=== PATIENT | male | born 1945 | race Caucasian/White ===

== ENCOUNTER → 2018-01-18 13:48 | Outpatient (CLI) | payer MEDICARE, OTHER, SELFPAY ==
--- NOTE | 2018-01-18 | DI.US.S_ITS ---
PROCEDURE: US ABD AORTA ANEURYSM SCREEN INDICATIONS: AAA SCREEN TECHNIQUE: Real time scanning was performed of the aorta and iliac arteries, with image documentation. COMPARISON: None. FINDINGS: Aorta: Proximal aortic diameter measures 2.8 cm. Mid-aorta measures 2.2 cm. Distal aortic diameter is 1.6 cm. Aortic atherosclerosis is noted. Iliac arteries: Right common iliac artery measures 1.2 cm. Left common iliac artery measures 1.1 cm. IMPRESSION: Aortic atherosclerosis without evidence of abdominal aortic aneurysm. Dictated by: Mike Warren M.D. on 01/18/2018 at 13:22 Approved by: Mike Warren M.D. on 01/18/2018 at 13:23
== END ==
PROVIDERS: PCP Family Medicine; Visit Provider Family Medicine
DX: Z13.6 Encounter for screening for cardiovascular disorders (principal); I70.0 Atherosclerosis of aorta
CPT/HCPCS: 76706

== ENCOUNTER → 2019-06-11 11:44 | Outpatient (CLI) | payer MEDICARE, OTHER, SELFPAY ==
[2019-06-11 12:43] LABS: Alanine Aminotransferase 50 IU/L (<50); Albumin Globulin Ratio 1.4 (1.0-2.8); Alkaline Phosphatase 73 U/L (38-126); Aspartate Aminotransferase 69 IU/L (17-59); BUN Creatinine Ratio 10.8 (6-22); Bilirubin Total 0.5 mg/dL (0.2-1.3); Blood Urea Nitrogen 9 mg/dL (9-20); Calcium 9.1 mg/dL (8.4-10.2); Carbon Dioxide 26 mmol/L (22-32); Chloride 106 mmol/L (98-107); Cholesterol 271 mg/dL (140-199); Estimated Glomerular Filt Rate > 60.0 mL/min (>60); Globulin 2.8 g/dL (1.7-4.1); Glucose 93 mg/dL (80-110); HDL Cholesterol 103 mg/dL (40-60); HEMOLYSIS < 15 (0-50); LDL Cholesterol Calculated 145 mg/dL (<100); Magnesium 1.7 mg/dL (1.6-2.3); Potassium 4.8 mmol/L (3.4-5.1); Sodium 142 mmol/L (137-145); Total Protein 6.8 g/dL (6.3-8.2); Triglycerides 113 mg/dL (35-150)
== END ==
PROVIDERS: PCP Student in an Organized Health Care Education/Training Program; Referring Provider Nurse Practitioner; Visit Provider Nurse Practitioner
DX: I48.19 Other persistent atrial fibrillation (principal)
CPT/HCPCS: 36415; 80053; 80061; 83735; 84443

== ENCOUNTER 2019-07-02 11:57 | Inpatient (IN) | payer MEDICARE, OTHER, SELFPAY ==
[2019-07-02] VITALS (12 sets, daily range): BP systolic 117–144; BP diastolic 76–107; PULSE 95–138; RESP 14–21; TEMP 36.3–36.9; O2SAT 93–97; BMI 24.7
--- NOTE | 2019-07-02 12:02 | ED_ITS ---
HPI - General Adult General Chief complaint: Arrhythmia/Palpitations Stated complaint: Weak, heart issues and Doesn't feel good Time Seen by Provider: 07/02/19 12:00 Source: patient and family () Mode of arrival: Ambulatory Limitations: no limitations History of Present Illness HPI narrative: Patient is a 74-year-old male brought in by private vehicle with his for evaluation of weakness, palpitations, inability to walk, shaking. Patient states that it feels like his heart is beating fast. He does have a history of atrial fibrillation. He denies being on any medications or anticoagulation for this. He states that he thinks it has been going on for at least the past 2 days but is unsure. He is unsure if he is in atrial fibrillation all the time or only sometimes. Patient is also here for shakiness and weakness in his legs. According to his this is potentially been progressively worsening over the past several days/weeks. Patient's also states that the patient has a significant alcohol history. Patient acknowledges this. He states that his last drink was yesterday. They also reported multiple falls at home. He has bruising on his elbows. Patient's also thinks that he was somewhat confused this morning. Patient's states that this morning he asked to come to the emergency department. She states that he normally does not do this and is always denied any prior offers for alcohol treatment. Related Data Allergies Allergy/AdvReac Type Severity Reaction Status Date / Time amoxicillin [AMOXICILLIN] Allergy Severe SWOLLEN JAW Unverified 05/24/17 12:22 clindamycin [CLINDAMYCIN] AdvReac Severe C-DIFF Unverified 05/24/17 12:22 Review of Systems Constitutional Constitutional: Reports fatigue, Denies fever(s), Reports frequent falls, Denies headache(s), Reports lethargy and Reports weakness Eyes Eyes: Denies change in vision ENT Ears, Nose, Mouth, and Throat: Denies vertigo, Denies dizziness, Denies headache(s) and Denies disequilibrium Cardiovascular Cardiovascular: Denies chest pain, Reports rapid heart rate, Denies edema, Reports palpitations and Denies dyspnea Respiratory Respiratory: Denies dyspnea Gastrointestinal Gastrointestinal: Denies abdominal pain and Denies vomiting Genitourinary Genitourinary: Denies dysuria Musculoskeletal Musculoskeletal: Reports abnormal gait, Denies myalgias and Denies arthralgias Integumentary/Breasts Skin/Breast: Denies rash Comments: Bruising bilateral elbows Neurologic Neurologic: Reports abnormal gait, Reports confusion, Denies vertigo, Denies dizziness, Reports frequent falls, Denies headache(s), Denies disequilibrium and Reports weakness Comments: Confusion this morning for his Psychiatric Psychiatric: Reports confusion Endocrine Endocrine: Reports fatigue and Reports palpitations Hematologic/Lymphatic Hematologic/Lymphatic: Denies easy bleeding and Denies easy bruising Comments: Not on anticoagulation Allergic/Immunologic Allergic/Immunologic: Denies urticaria Patient History Medical History Alcohol abuse (Acute) Atrial fibrillation (Acute) Social History Smoking Status: Current some day smoker Exam Initial Vital Signs Initial Vital Signs: Vital Signs Temperature 97.4 F L 07/02/19 12:00 Pulse Rate 138 H 07/02/19 12:00 Respiratory Rate 14 07/02/19 12:00 Blood Pressure 129/76 07/02/19 12:00 Pulse Oximetry 97 07/02/19 12:00 Const General: cooperative and comfortable Limitations: mental status not altered HENMT Head: normal to inspection and normocephalic Resp Effort & Inspection: normal respiratory effort Auscultation: clear to auscultation bilaterally Cardio Rate: tachycardic Rhythm: abnormal rhythm Pulses: radial pulses present GI Inspection: non-distended Palpation: soft and No tender Skin Other: Bruising bilateral elbows Neuro General: alert, awake and oriented x3 Speech: speech normal Sensory Exam: no sensory deficits noted Extrem General: normal to inspection and capillary refill normal Psych Appearance: grossly normal and well kempt Scores GCS [place] coma scale eye opening: Spontaneous Tata coma scale verbal response: Orientated [place] coma scale motor response: Obey commands [place] coma scale total score: 15 Course Orders Ordered: ED Orders 07/02/19 12:01 EKG-12 Lead Stat 07/02/19 12:05 Acetaminophen Stat Complete Blood Count AUTO DIFF Stat Comprehensive Metabolic Panel Stat Ethanol (ETOH) Stat Lipase Stat Partial Thromboplastin Time Stat Procalcitonin Stat Prothrombin Time INR Stat Salicylate Stat Troponin I Stat 07/02/19 12:15 CT head/brain wo con Stat 07/02/19 12:22 Lactate (Lactic Acid) Stat 07/02/19 14:06 Urine Drug Screen, Rapid Stat 07/02/19 14:07 XR chest 1V Stat 07/02/19 14:20 Ammonia (NH3) Stat Magnesium Sulfate 2 gm/ Folic Acid 1 mg/ Thiamine HCl 100 mg / Multivitamins 10 ml/ Sodium Chloride 1,015.2 mls @ 125 mls/hr IV NOW ONE Stop: 07/02/19 20:36 Last Admin: 07/02/19 13:23 Dose: 125 mls/hr Documented by: JUSTICE Lorazepam (Ativan) 0.5 mg IV Q2HR PRN PRN Reason: Alcohol Withdrawal Ondansetron HCl (Zofran) 4 mg IV Q4HR PRN PRN Reason: Nausea And Vomiting Discontinued Medications Sodium Chloride (Normal Saline 0.9%) 1,000 mls @ 150 mls/hr IV CONT MIKEL Last Admin: 07/02/19 13:23 Dose: Not Given Documented by: JUSTICE Lorazepam (Ativan) 0.5 mg IV NOW ONE Stop: 07/02/19 12:30 Last Admin: 07/02/19 12:40 Dose: 0.5 mg Documented by: JUSTICE Lorazepam (Ativan) 0.5 mg IV NOW ONE Stop: 07/02/19 13:42 Last Admin: 07/02/19 13:57 Dose: 0.5 mg Documented by: JUSTICE Metoprolol Succinate (Toprol Xl) 25 mg PO NOW ONE Stop: 07/02/19 12:30 Last Admin: 07/02/19 12:42 Dose: 25 mg Documented by: JUSTICE Multivitamins (Tab-A-Cherri) 1 tab PO NOW ONE Stop: 07/02/19 12:20 Last Admin: 07/02/19 13:24 Dose: Not Given Documented by: JUSTICE Thiamine HCl (Vitamin B-1) 100 mg IV NOW ONE Stop: 07/02/19 12:19 Last Admin: 07/02/19 13:23 Dose: Not Given Documented by: JUSTICE Vital Signs Vital signs: Vital Signs - 8 hr 07/02/19 12:00 07/02/19 12:34 07/02/19 13:20 Temperature 97.4 F L Pulse Rate 138 H 113 H 113 H Respiratory Rate 14 16 16 Blood Pressure 129/76 Blood Pressure [Left Arm] 144/91 H 144/91 H Pulse Oximetry 97 93 07/02/19 13:24 Temperature Pulse Rate 113 H Respiratory Rate Blood Pressure Blood Pressure [Left Arm] Pulse Oximetry Medical Decision Making Medical Records Medical records reviewed: Yes I reviewed the patient's medical records. Lab Data Lab results reviewed: Yes I reviewed the patient's lab results. Result diagrams: 07/02/19 12:05 07/02/19 12:05 Labs: Lab Results 07/02/19 07/02/19 07/02/19 Range/Units 12:05 12:05 12:05 WBC 5.6 (4.5-11.0) X10^3/uL RBC 3.29 L (4.5-5.9) X10^6/uL Hgb 12.1 L (13.5-17.5) g/dL Hct 35.1 L (41-53) % MCV 106.9 H (80-100) fL MCH 36.8 H (26-34) PG MCHC 34.4 (30-36) % RDW 13.8 (11.6-14.8) % Plt Count 121 L (150-400) X10^3/uL Neut % (Auto) 73.9 (50-75) % Lymph % (Auto) 12.2 L (25-40) % [place] % (Auto) 12.6 (3-14) % Eos % (Auto) 0.2 L (2-4) % Baso % (Auto) 1.1 (0-2) % Neut # (Auto) 4200 (3801-0152) /uL Lymph # (Auto) 700 L (5121-7073) /uL [place] # (Auto) 700 (0-900) /uL Eos # (Auto) 0 (0-450) /uL Baso # (Auto) 100 (0-100) /uL PT 46.1 H (10.1-12.7) SECONDS INR 4.0 H (0.9-1.3) APTT 26 L (26.4-36.2) SECONDS Sodium 137 (137-145) mmol/L Potassium 4.3 (3.4-5.1) mmol/L Chloride 103 (98-107) mmol/L Carbon Dioxide 23 (22-32) mmol/L BUN 13 (9-20) mg/dL Creatinine 0.70 (0.66-1.25) mg/dL Estimated GFR > 60.0 (>60) mL/min BUN/Creatinine Ratio 18.6 (6-22) Glucose 121 H (80-110) mg/dL Lactate (0.7-2.1) mmol/L Calcium 9.1 (8.4-10.2) mg/dL Total Bilirubin 1.2 (0.2-1.3) mg/dL AST 148 H (17-59) IU/L ALT 75 H (<50) IU/L Alkaline Phosphatase 84 (38-126) U/L Ammonia (9-30) umol/L Troponin I < 0.012 (0.01-0.034) ng/mL Total Protein 6.9 (6.3-8.2) g/dL Albumin 4.1 (3.5-5.0) g/dL Globulin 2.8 (1.7-4.1) g/dL Albumin/Globulin Ratio 1.5 (1.0-2.8) Lipase 149 (23-300) U/L Procalcitonin (<0.5) ng/mL Salicylates (<20) mg/dL Acetaminophen (10-30) ug/mL Ethyl Alcohol < 10 ( - 10) mg/dL 07/02/19 07/02/19 07/02/19 Range/Units 12:05 12:05 12:22 WBC (4.5-11.0) X10^3/uL RBC (4.5-5.9) X10^6/uL Hgb (13.5-17.5) g/dL Hct (41-53) % MCV (80-100) fL MCH (26-34) PG MCHC (30-36) % RDW (11.6-14.8) % Plt Count (150-400) X10^3/uL Neut % (Auto) (50-75) % Lymph % (Auto) (25-40) % [place] % (Auto) (3-14) % Eos % (Auto) (2-4) % Baso % (Auto) (0-2) % Neut # (Auto) (1153-2290) /uL Lymph # (Auto) (1519-4324) /uL [place] # (Auto) (0-900) /uL Eos # (Auto) (0-450) /uL Baso # (Auto) (0-100) /uL PT (10.1-12.7) SECONDS INR (0.9-1.3) APTT (26.4-36.2) SECONDS Sodium (137-145) mmol/L Potassium (3.4-5.1) mmol/L Chloride (98-107) mmol/L Carbon Dioxide (22-32) mmol/L BUN (9-20) mg/dL Creatinine (0.66-1.25) mg/dL Estimated GFR (>60) mL/min BUN/Creatinine Ratio (6-22) Glucose (80-110) mg/dL Lactate 5.5 H* (0.7-2.1) mmol/L Calcium (8.4-10.2) mg/dL Total Bilirubin (0.2-1.3) mg/dL AST (17-59) IU/L ALT (<50) IU/L Alkaline Phosphatase (38-126) U/L Ammonia (9-30) umol/L Troponin I (0.01-0.034) ng/mL Total Protein (6.3-8.2) g/dL Albumin (3.5-5.0) g/dL Globulin (1.7-4.1) g/dL Albumin/Globulin Ratio (1.0-2.8) Lipase (23-300) U/L Procalcitonin 0.08 (<0.5) ng/mL Salicylates < 1.0 (<20) mg/dL Acetaminophen < 10 L (10-30) ug/mL Ethyl Alcohol ( - 10) mg/dL 07/02/19 07/02/19 Range/Units 14:20 14:20 WBC (4.5-11.0) X10^3/uL RBC (4.5-5.9) X10^6/uL Hgb (13.5-17.5) g/dL Hct (41-53) % MCV (80-100) fL MCH (26-34) PG MCHC (30-36) % RDW (11.6-14.8) % Plt Count (150-400) X10^3/uL Neut % (Auto) (50-75) % Lymph % (Auto) (25-40) % [place] % (Auto) (3-14) % Eos % (Auto) (2-4) % Baso % (Auto) (0-2) % Neut # (Auto) (3701-9638) /uL Lymph # (Auto) (5550-2885) /uL [place] # (Auto) (0-900) /uL Eos # (Auto) (0-450) /uL Baso # (Auto) (0-100) /uL PT (10.1-12.7) SECONDS INR (0.9-1.3) APTT (26.4-36.2) SECONDS Sodium (137-145) mmol/L Potassium (3.4-5.1) mmol/L Chloride (98-107) mmol/L Carbon Dioxide (22-32) mmol/L BUN (9-20) mg/dL Creatinine (0.66-1.25) mg/dL Estimated GFR (>60) mL/min BUN/Creatinine Ratio (6-22) Glucose (80-110) mg/dL Lactate 1.5 (0.7-2.1) mmol/L Calcium (8.4-10.2) mg/dL Total Bilirubin (0.2-1.3) mg/dL AST (17-59) IU/L ALT (<50) IU/L Alkaline Phosphatase (38-126) U/L Ammonia < 9 L (9-30) umol/L Troponin I (0.01-0.034) ng/mL Total Protein (6.3-8.2) g/dL Albumin (3.5-5.0) g/dL Globulin (1.7-4.1) g/dL Albumin/Globulin Ratio (1.0-2.8) Lipase (23-300) U/L Procalcitonin (<0.5) ng/mL Salicylates (<20) mg/dL Acetaminophen (10-30) ug/mL Ethyl Alcohol ( - 10) mg/dL Imaging Data CT scan - head: Radiologist's Impression: [address] [address] [address] Scan Report Signed Patient: Master Porter OMR#: [id number] : 7Acct:[id number] Age/Sex: 74 / MDate of Service: 07/02/19 Loc: ED Accession Number: [id number] Procedure: CT head/brain wo con Ordering Provider: Master Medina D.O. PROCEDURE: CT HEAD/BRAIN WO CON INDICATIONS: etoh, confusion, fall TECHNIQUE: Noncontrast 4.5 mm thick angled axial sections acquired from the foramen magnum to the vertex, with coronal and sagittal reformats. For radiation dose reduction, the following was used: automated exposure control, adjustment of mA and/or kV according to patient size. COMPARISON: None. FINDINGS: Image quality: Excellent. CSF spaces: Basal cisterns are patent. No extra-axial fluid collections. The ventricles are symmetric in size and shape. Brain: No intracranial bleeds or masses. There is cerebral volume loss for age, with resultant ventricular and sulcal prominence. There are periventricular and deep white matter chronic small vessel ischemic changes. There is intracranial internal carotid artery atherosclerosis. Skull and face: Calvarium and visualized facial bones appear intact, without suspicious lesions. Sinuses: Visualized sinuses and mastoids are clear. IMPRESSION: No acute intracranial process. Dictated by: Dewayne Todd M.D. on 07/02/2019 at 12:54 Approved by: Dewayne Todd M.D. on 07/02/2019 at 12:57 ECG Data Attestation: I personally reviewed and interpreted this ECG as follows: Prior ECG tracings: not available for review Interpretation: Atrial fibrillation Ventricular rate of 140 Normal QRS Normal QTC Nonspecific ST T wave changes MDM Narrative Medical decision making narrative: Patient in atrial fibrillation. I suspect this is secondary to alcohol withdrawal. Head CT was unremarkable. Patient has full range of motion of all major joints both upper and lower extremities. Feel we could hold on radiologic studies these areas despite the bruising on his elbows. Patient was given oral metoprolol. He was given IV Ativan. Heart rate did improve after these treatments. Patient was started on a banana bag. Discussed the case with Dr. Beckham who was on-call for the patient's primary doctor. Will admit for further evaluation treatment. Discussed admission with the patient and his who is at bedside. They expressed understanding and agreement. Discharge Plan Departure Patient Disposition: Admitted As Inpatient Clinical Impression: Atrial fibrillation with RVR, Weakness Alcohol withdrawal Qualifiers: Complication of substance-induced condition: with unspecified complication Qualified Code(s): F10.239 - Alcohol dependence with withdrawal, unspecified Admit Date/Time: 07/02/19 14:36 Admit Provider: Cris Reyna
--- NOTE | 2019-07-02 12:15 | DI.CT.S_ITS ---
PROCEDURE: CT HEAD/BRAIN WO CON INDICATIONS: etoh, confusion, fall TECHNIQUE: Noncontrast 4.5 mm thick angled axial sections acquired from the foramen magnum to the vertex, with coronal and sagittal reformats. For radiation dose reduction, the following was used: automated exposure control, adjustment of mA and/or kV according to patient size. COMPARISON: None. FINDINGS: Image quality: Excellent. CSF spaces: Basal cisterns are patent. No extra-axial fluid collections. The ventricles are symmetric in size and shape. Brain: No intracranial bleeds or masses. There is cerebral volume loss for age, with resultant ventricular and sulcal prominence. There are periventricular and deep white matter chronic small vessel ischemic changes. There is intracranial internal carotid artery atherosclerosis. Skull and face: Calvarium and visualized facial bones appear intact, without suspicious lesions. Sinuses: Visualized sinuses and mastoids are clear. IMPRESSION: No acute intracranial process. Dictated by: Dewayne Todd M.D. on 07/02/2019 at 12:54 Approved by: Dewayne Todd M.D. on 07/02/2019 at 12:57
[2019-07-02 12:19] LABS: Add Manual Diff / Slide Review NO; Basophils Absolute Auto 100 /uL (0-100); Basophils Percent Auto 1.1 % (0-2); Eosinophils Absolute Auto 0 /uL (0-450); Eosinophils Percent Auto 0.2 % (2-4); Hematocrit 35.1 % (41-53); Hemoglobin 12.1 g/dL (13.5-17.5); Lymphocytes Absolute Auto 700 /uL (1100-4500); Lymphocytes Percent Auto 12.2 % (25-40); Mean Corpuscular HGB Conc 34.4 % (30-36); Mean Corpuscular Hemoglobin 36.8 PG (26-34); Mean Corpuscular Volume 106.9 fL (80-100); Monocytes Absolute Auto 700 /uL (0-900); Monocytes Percent Auto 12.6 % (3-14); Neutrophils Absolute Auto 4200 /uL (1500-7000); Neutrophils Percent Auto 73.9 % (50-75); Platelet Count 121 X10^3/uL (150-400); Red Blood Cell Count 3.29 X10^6/uL (4.5-5.9); Red Cell Distribution Width 13.8 % (11.6-14.8); White Blood Cell Count 5.6 X10^3/uL (4.5-11.0)
[2019-07-02 12:23] LABS: Prothrombin Time 46.1 SECONDS (10.1-12.7)
[2019-07-02 12:26] LABS: PTT Partial Thromboplastin Tim 26 SECONDS (26.4-36.2)
[2019-07-02 12:30] LABS: Acetaminophen < 10 ug/mL (10-30); Albumin 4.1 g/dL (3.5-5.0); Albumin Globulin Ratio 1.5 (1.0-2.8); Alkaline Phosphatase 84 U/L (38-126); Aspartate Aminotransferase 148 IU/L (17-59); BUN Creatinine Ratio 18.6 (6-22); Bilirubin Total 1.2 mg/dL (0.2-1.3); Blood Urea Nitrogen 13 mg/dL (9-20); Calcium 9.1 mg/dL (8.4-10.2); Carbon Dioxide 23 mmol/L (22-32); Chloride 103 mmol/L (98-107); Estimated Glomerular Filt Rate > 60.0 mL/min (>60); Ethanol (ETOH) < 10 mg/dL; Globulin 2.8 g/dL (1.7-4.1); Glucose 121 mg/dL (80-110); HEMOLYSIS 16 (0-50); Lipase 149 U/L (23-300); Potassium 4.3 mmol/L (3.4-5.1); Salicylate < 1.0 mg/dL (<20); Sodium 137 mmol/L (137-145); Total Protein 6.9 g/dL (6.3-8.2)
--- NOTE | 2019-07-02 12:30 | PC.NURSE ---
admits drinking 3-4 days, reports not feeling well, ran away heart, afib last drink yesterday. dyspneic on exertion with bilateral foot swelling,+weakness, shaky. denies fever,nausea,vomiting,shortness of breath. denies headache,nausea,auditory/visual hallucinations.
[2019-07-02] MEDS: LORazepam 2 MG/ML INJ 0.5 MG IV ×3 (12:40→18:06)
[2019-07-02 12:41] LABS: Troponin I < 0.012 ng/mL (0.01-0.034)
[2019-07-02] MEDS: METOPROLOL ER 25 MG TABLET PO ×2 (12:42→21:21)
[2019-07-02 12:44] LABS: Lactate (Lactic Acid) 5.5 mmol/L (0.7-2.1)
[2019-07-02 12:46] LABS: Procalcitonin 0.08 ng/mL (<0.5)
[2019-07-02] MEDS: MAGNESIUM SULFATE 2 GM, FOLIC ACID 1 MG, THIAMINE 100 MG, MULTIVITAMIN 10 ML in SODIUM ... IV (13:23)
[2019-07-02 13:36] LABS: Alanine Aminotransferase 75 IU/L (<50)
--- NOTE | 2019-07-02 14:07 | DI.RAD.S_ITS ---
PROCEDURE: XR CHEST 1V INDICATIONS: Eval for pneumonia TECHNIQUE: One view of the chest was acquired. COMPARISON: None. FINDINGS: Surgical changes and devices: None. Lungs and pleura: Lungs are clear. No pleural effusions or pneumothorax. Mediastinum: Mediastinal contours appear normal. Heart size is normal. Bones and chest wall: No suspicious bony lesions. Overlying soft tissues appear unremarkable. IMPRESSION: No acute cardiopulmonary disease process. Dictated by: Lianne Morgan MD, PhD on 07/02/2019 at 15:10 Approved by: Lianne Morgan MD, PhD on 07/02/2019 at 15:11
[2019-07-02 14:23] LABS: Reflexed Lactate in 2 Hours Y
[2019-07-02 14:42] LABS: Ammonia (NH3) < 9 umol/L (9-30); Lactate 2HR (Lactic Acid Rflx) 1.5 mmol/L (0.7-2.1)
[2019-07-02 15:44] LABS: UR Morphine/Opiate cutoff 300 Negative (Negative); Ur Creatinine Normal (Normal); Ur Specific Gravity Normal (Normal); Urine Amphetamines Negative (Negative); Urine Barbiturates Negative (Negative); Urine Benzodiazepines Negative (Negative); Urine Cocaine Negative (Negative); Urine MDMA Negative (Negative); Urine Methadone Negative (Negative); Urine Methamphetamines Negative (Negative); Urine Oxycodone Negative (Negative); Urine Phencyclidine Negative (Negative); Urine Tetrahydrocannabinol Negative (Negative); Urine Tricyclic Antidepressant Negative (Negative); Urine pH Normal (Normal)
--- NOTE | 2019-07-02 19:10 | PM.HP.1 ---
History of Present Illness History of Present Illness Date Patient Seen: 07/02/19 Time Patient Seen: 19:11 Date of Onset of Symptoms: 07/02/19 Chief complaint: Weak, heart issues and Doesn't feel good Narrative: This pleasant 74-year-old male who is under the primary care of Dr. Reyna presents to the emergency department with complaints of severe weakness and confusion. CT scan of the head was negative and neurologic exam was nonfocal. Patient was found to be in atrial fibrillation with a rapid ventricular response and was given metoprolol with improvement in his heart rate. Due to overall deconditioning concerned that he was experiencing acute delirium tremens he was admitted to the hospital for further treatment. He is given varied history is of having alcohol today having it yesterday having it 3 days prior as the last time that he drink. He has a history of alcohol abuse and has been battling with this. He currently has been drinking but I do not have a quantification for, which his intake has been on a daily basis. He has had a history of atrial fibrillation and typically it has not persisted for more than 15 minutes. He has been on anticoagulants in the past and is not clear why these were stopped but I suspect it is due to his history of alcoholism and his frequent falls and unsteady gait. Review of systems is negative other than above Patient denies any abdominal complaints. He denies any abdominal pain. He denies any bright red blood per rectum. He denies any bloody stools. He denies any weight loss. He denies any reflux. He does not have any history of GI bleeds. Patient denies chest pain. Patient denies shortness of breath or palpitations. He has felt poorly has felt dizzy and lightheaded Patient denies headache. Patient denies seizures Patient denies depression Past medical history: 1. Alcoholism 2. Atrial fibrillation 3. Hypertension 4. Hyperlipidemia 5. BPH without obstruction 6. Colon polyps 7. Gout 8. 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 [employer] Family history: Mom of lung cancer Sister of complications of rheumatoid arthritis Has 2 brothers who are healthy Has 3 other sisters who are healthy Patient History Medical History Alcohol abuse (Acute) Atrial fibrillation (Acute) Family & Social History Social History: household members spouse Prior Living Arrangements House Safety & Behavioral: Feels Safe in Current Yes Environment Suicidal Ideation Description None Suicide Plan Description No Plan Tobacco & Substance use: Tobacco type cigarettes Smoking Status Former smoker Smoking packs per day 2 alcohol intake frequency 3 or more drinks per day Substance Use Type does not use Meds Home Medications and Allergies Home Medications Medication Instructions Recorded Confirmed Type No Known Home Medications 07/02/19 07/02/19 History Allergies Allergy/AdvReac Type Severity Reaction Status Date / Time amoxicillin [AMOXICILLIN] Allergy Severe SWOLLEN JAW Unverified 05/24/17 12:22 clindamycin [CLINDAMYCIN] AdvReac Severe C-DIFF Unverified 05/24/17 12:22 Review of Systems Review of Systems Narrative: Negative other than HPI Exam Vital Signs (past 8 hours): - 07/02/19 12:00 07/02/19 12:34 07/02/19 13:20 Temperature 97.4 F L Pulse Rate 138 H 113 H 113 H Respiratory Rate 14 16 16 Blood Pressure 129/76 Blood Pressure [Left Arm] 144/91 H 144/91 H Pulse Oximetry 97 93 07/02/19 13:24 07/02/19 15:13 07/02/19 16:02 Temperature Pulse Rate 113 H 102 H 95 H Respiratory Rate 21 14 Blood Pressure Blood Pressure [Left Arm] 135/103 H 117/78 Pulse Oximetry 95 94 07/02/19 16:25 07/02/19 18:35 Temperature 97.7 F Pulse Rate 107 H 105 H Respiratory Rate 18 20 Blood Pressure 130/91 H 131/86 Blood Pressure [Left Arm] Pulse Oximetry 95 Oxygen Delivery Method Room Air Oxygen Flow Rate 0 Narrative Exam Narrative: Patient is resting peacefully in hospital bed. He awakens to voice and questioning. He is somewhat slow to respond and difficulty finding words but is able to give history. Patient appears disheveled HEENT with no focal abnormalities but mucous membranes are dry and pink Neck: Supple without adenopathy thyromegaly, jugular venous distention or bruits Chest: Clear to auscultation without wheezes rhonchi or crackles Cor: Irregularly irregular rhythm with a well-controlled rate in the 90s distant S1-S2 without murmur rubs or gallops Abdomen: Positive bowel sounds, soft, nontender, nondistended no hepatosplenomegaly. No evidence of sequela of chronic alcohol intake Extremities: No edema pulses intact Skin exam shows diffuse ecchymoses, superficial Objective Labs Result Diagrams: 07/02/19 12:05 07/02/19 12:05 Labs: Laboratory Results - last 24 hr 07/02/19 07/02/19 07/02/19 12:05 12:05 12:05 WBC 5.6 RBC 3.29 L Hgb 12.1 L Hct 35.1 L MCV 106.9 H MCH 36.8 H MCHC 34.4 RDW 13.8 Plt Count 121 L Neut % (Auto) 73.9 Lymph % (Auto) 12.2 L [place] % (Auto) 12.6 Eos % (Auto) 0.2 L Baso % (Auto) 1.1 Neut # (Auto) 4200 Lymph # (Auto) 700 L [place] # (Auto) 700 Eos # (Auto) 0 Baso # (Auto) 100 PT 46.1 H INR 4.0 H APTT 26 L Sodium 137 Potassium 4.3 Chloride 103 Carbon Dioxide 23 BUN 13 Creatinine 0.70 Estimated GFR > 60.0 BUN/Creatinine Ratio 18.6 Glucose 121 H Lactate Calcium 9.1 Total Bilirubin 1.2 AST 148 H ALT 75 H Alkaline Phosphatase 84 Ammonia Troponin I < 0.012 Total Protein 6.9 Albumin 4.1 Globulin 2.8 Albumin/Globulin Ratio 1.5 Lipase 149 Procalcitonin Salicylates U Opiates 300ng/mL cut Ur Oxycodone Screen Urine Methadone Screen Acetaminophen Ur Barbiturates Screen U Tricyclic Antidepress Ur Phencyclidine Scrn Ur Amphetamines Screen U Methamphetamines Scrn Ur MDMA Scrn (Ecstasy) U Benzodiazepines Scrn Urine Cocaine Screen U Marijuana (THC) Screen Ethyl Alcohol < 10 07/02/19 07/02/19 07/02/19 12:05 12:05 12:22 WBC RBC Hgb Hct MCV MCH MCHC RDW Plt Count Neut % (Auto) Lymph % (Auto) [place] % (Auto) Eos % (Auto) Baso % (Auto) Neut # (Auto) Lymph # (Auto) [place] # (Auto) Eos # (Auto) Baso # (Auto) PT INR APTT Sodium Potassium Chloride Carbon Dioxide BUN Creatinine Estimated GFR BUN/Creatinine Ratio Glucose Lactate 5.5 H* Calcium Total Bilirubin AST ALT Alkaline Phosphatase Ammonia Troponin I Total Protein Albumin Globulin Albumin/Globulin Ratio Lipase Procalcitonin 0.08 Salicylates < 1.0 U Opiates 300ng/mL cut Ur Oxycodone Screen Urine Methadone Screen Acetaminophen < 10 L Ur Barbiturates Screen U Tricyclic Antidepress Ur Phencyclidine Scrn Ur Amphetamines Screen U Methamphetamines Scrn Ur MDMA Scrn (Ecstasy) U Benzodiazepines Scrn Urine Cocaine Screen U Marijuana (THC) Screen Ethyl Alcohol 07/02/19 07/02/19 07/02/19 14:20 14:20 15:15 WBC RBC Hgb Hct MCV MCH MCHC RDW Plt Count Neut % (Auto) Lymph % (Auto) [place] % (Auto) Eos % (Auto) Baso % (Auto) Neut # (Auto) Lymph # (Auto) [place] # (Auto) Eos # (Auto) Baso # (Auto) PT INR APTT Sodium Potassium Chloride Carbon Dioxide BUN Creatinine Estimated GFR BUN/Creatinine Ratio Glucose Lactate 1.5 Calcium Total Bilirubin AST ALT Alkaline Phosphatase Ammonia < 9 L Troponin I Total Protein Albumin Globulin Albumin/Globulin Ratio Lipase Procalcitonin Salicylates U Opiates 300ng/mL cut Negative Ur Oxycodone Screen Negative Urine Methadone Screen Negative Acetaminophen Ur Barbiturates Screen Negative U Tricyclic Antidepress Negative Ur Phencyclidine Scrn Negative Ur Amphetamines Screen Negative U Methamphetamines Scrn Negative Ur MDMA Scrn (Ecstasy) Negative U Benzodiazepines Scrn Negative Urine Cocaine Screen Negative U Marijuana (THC) Screen Negative Ethyl Alcohol Assessment & Plan Assessment & Plan narrative: 74-year-old male admitted for weakness and confusion with atrial fibrillation rapid ventricular rate Assessment 1. Confusion change in mental status suspect related to alcoholism and acute alcohol withdrawal Plan will admit to the hospital. Will place on [facility] protocol. Will monitor closely. Will re-evaluate labs in a.m. will re-evaluate physical status in a.m. and consider physical therapy to help with weakness. No evidence of infectious process. Initial lactate elevated but I suspect this was due to withdrawal tremors. We will check echo fit status. Assessment 2. Atrial fibrillation with rapid ventricular rate with negative troponin suspect related to alcohol abuse Plan: Continue metoprolol ER 25 mg will increase this to 25 mg twice daily. He was given a dose with good effect in the ER. He has previously been on anticoagulation with a to come off because of falls and his INR is 4 which I suspect is related to hepatic dysfunction. We will get an echo in a.m. Assessment 3. Liver dysfunction with abnormal coagulation factors. Plan: No evidence of bleeding. We will recheck in a.m.. We will check guaiac stools and check a CBC. Will avoid Tylenol for now Assessment 4. Anemia of unclear etiology normocytic Plan: Will recheck in a.m.. Will do guaiac stools. Will check stool guaiacs Assessment 5. Hypertension Plan: Metoprolol will continue to monitor. Code status is full code 60 minutes was spent with patient on the floor reviewing his records examined and formulating plan
[2019-07-02 20:21] LABS: COVID19 -Nasal RAPID Negative (Negative)
[2019-07-03] VITALS (24 sets, daily range): BP systolic 87–161; BP diastolic 61–111; PULSE 74–140; RESP 15–26; TEMP 36.1–37.1; O2SAT 92–100
--- NOTE | 2019-07-03 | DI.CT.S_ITS ---
PROCEDURE: CT HEAD/BRAIN WO CON INDICATIONS: refractory status epilepticus x 3 hours TECHNIQUE: Noncontrast 4.5 mm thick angled axial sections acquired from the foramen magnum to the vertex, with coronal and sagittal reformats. For radiation dose reduction, the following was used: automated exposure control, adjustment of mA and/or kV according to patient size. COMPARISON: [facility], CT, CT HEAD/BRAIN WO CON, 07/02/2019, 12:34. FINDINGS: Image quality: Excellent. CSF spaces: Basal cisterns are patent. No extra-axial fluid collections. The ventricles are symmetric in size and shape. There is moderate cerebral volume loss, with resultant ventricular and sulcal prominence. Brain: No intracranial hemorrhage, mass, or mass effect. There is a small region of encephalomalacia redemonstrated in the left parietal lobe. There are subcortical, periventricular and deep white matter hypodensities consistent with moderate chronic small vessel ischemic changes. There is intracranial internal carotid artery atherosclerosis. Skull and face: Calvarium and visualized facial bones appear intact, without suspicious lesions. Sinuses: Visualized demonstrate mild mucosal thickening within ethmoid and maxillary sinuses. The mastoid air cells are clear. There is fluid within the visualized nasopharynx and oropharynx likely related to intubation. IMPRESSION: 1. No definite acute intracranial abnormality. 2. Moderate cerebral volume loss and chronic white matter small vessel ischemic changes. Dictated by: Dorian Solano M.D. on 07/03/2019 at 21:01 Approved by: Dorian Solano M.D. on 07/03/2019 at 21:03
--- NOTE | 2019-07-03 | DI.RAD.S_ITS ---
PROCEDURE: XR CHEST 1V INDICATIONS: check placement of ET tube TECHNIQUE: One view of the chest was acquired. COMPARISON: [facility], CR, XR CHEST 1V, 07/03/2019, 18:23. FINDINGS: Surgical changes and devices: There is interval repositioning of endotracheal tube with the tip in appropriate position approximately 4.5 cm from the lyla. Lungs and pleura: Persistent left retrocardiac opacities consistent with consolidation or atelectasis are demonstrated. There is also persistent pulmonary edema and a small left pleural effusion. No evidence of pneumothorax. Mediastinum: Mediastinal contours appear unchanged. Heart size is normal. Bones and chest wall: No suspicious bony lesions. Overlying soft tissues appear unremarkable. IMPRESSION: 1. Interval repositioning of the endotracheal tube which appears in appropriate position. 2. Persistent left retrocardiac consolidation or atelectasis, pulmonary edema, and small left pleural effusion. Dictated by: Dorian Solano M.D. on 07/03/2019 at 19:19 Approved by: Dorian Solano M.D. on 07/03/2019 at 19:20
[2019-07-03 05:07] LABS: Add Manual Diff / Slide Review NO; Basophils Absolute Auto 0 /uL (0-100); Eosinophils Absolute Auto 100 /uL (0-450); Eosinophils Percent Auto 1.2 % (2-4); Hematocrit 33.9 % (41-53); Hemoglobin 11.7 g/dL (13.5-17.5); Lymphocytes Absolute Auto 700 /uL (1100-4500); Lymphocytes Percent Auto 15.8 % (25-40); Mean Corpuscular HGB Conc 34.7 % (30-36); Mean Corpuscular Hemoglobin 36.7 PG (26-34); Mean Corpuscular Volume 105.9 fL (80-100); Monocytes Absolute Auto 700 /uL (0-900); Neutrophils Absolute Auto 3100 /uL (1500-7000); Platelet Count 111 X10^3/uL (150-400); Red Cell Distribution Width 13.5 % (11.6-14.8); White Blood Cell Count 4.6 X10^3/uL (4.5-11.0)
[2019-07-03 05:09] LABS: Prothrombin Time 11.6 SECONDS (10.1-12.7)
[2019-07-03 05:17] LABS: Alanine Aminotransferase 69 IU/L (<50); Albumin 3.5 g/dL (3.5-5.0); Albumin Globulin Ratio 1.3 (1.0-2.8); Alkaline Phosphatase 79 U/L (38-126); Aspartate Aminotransferase 117 IU/L (17-59); BUN Creatinine Ratio 11.9 (6-22); Bilirubin Total 1.1 mg/dL (0.2-1.3); Blood Urea Nitrogen 8 mg/dL (9-20); Calcium 8.6 mg/dL (8.4-10.2); Carbon Dioxide 25 mmol/L (22-32); Chloride 102 mmol/L (98-107); Estimated Glomerular Filt Rate > 60.0 mL/min (>60); Gamma Glutamyl Transpeptidase 289 U/L (15-73); Globulin 2.8 g/dL (1.7-4.1); Glucose 94 mg/dL (80-110); HEMOLYSIS < 15 (0-50); Potassium 3.9 mmol/L (3.4-5.1); Sodium 134 mmol/L (137-145); Total Protein 6.3 g/dL (6.3-8.2)
[2019-07-03 06:35] LABS: Ferritin 1340 ng/mL (18-464)
--- NOTE | 2019-07-03 08:38 | P.PN_ITS ---
Subjective Subjective Date Patient Seen: 07/03/19 Time Patient Seen: 08:51 Interval history: Patient is stoic this morning, baseline for him. When asked if he is having any pain, replies no. Denies tremors or hallucinations. CIWA score 6 this morning. Has been ambulating up to the bathroom. Tolerating diet, no nausea or vomiting. He is open to going to inpatient rehab for the first time in his life. His has been looking into this. Inquiring if he will be able to exercise again if he goes through rehab. He has not been able to do much for the last 3 years. 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 Exam Vital Signs (past 8 hours): - 07/03/19 04:31 07/03/19 07:51 Temperature 97.5 F L 98.4 F Pulse Rate 75 88 Respiratory Rate 18 18 Blood Pressure 135/83 131/96 H Pulse Oximetry 96 97 Oxygen Delivery Method Room Air Oxygen Flow Rate 0 Narrative Exam Narrative: GENERAL: Alert and oriented, appearing stated age and in no acute distress. HEENT: Head normocephalic/atraumatic. LUNGS: Clear to ausculation bilaterally, no wheezes, rhonchi or rales. CV: Irregularly irregular, no audible murmurs, rubs or gallops. ABDOMEN: Soft, non-tender, non-distended, no organomegaly. Positive bowel sounds. No ascites or fluid shift. EXTREMITIES: No clubbing, cyanosis, or edema. NEURO: Cranial nerves II through XII grossly intact, no focal deficits. PSYCH: Alert and oriented x 3. SKIN: Diffuse ecchymoses, bilateral upper extremities. Objective Labs Result Diagrams: 07/03/19 04:53 07/03/19 04:53 Labs: Laboratory Results - last 24 hr 07/02/19 07/02/19 07/02/19 12:05 12:05 12:05 WBC 5.6 RBC 3.29 L Hgb 12.1 L Hct 35.1 L MCV 106.9 H MCH 36.8 H MCHC 34.4 RDW 13.8 Plt Count 121 L Neut % (Auto) 73.9 Lymph % (Auto) 12.2 L [place] % (Auto) 12.6 Eos % (Auto) 0.2 L Baso % (Auto) 1.1 Neut # (Auto) 4200 Lymph # (Auto) 700 L [place] # (Auto) 700 Eos # (Auto) 0 Baso # (Auto) 100 PT 46.1 H INR 4.0 H APTT 26 L Sodium 137 Potassium 4.3 Chloride 103 Carbon Dioxide 23 BUN 13 Creatinine 0.70 Estimated GFR > 60.0 BUN/Creatinine Ratio 18.6 Glucose 121 H Lactate Calcium 9.1 Ferritin Total Bilirubin 1.2 GGT AST 148 H ALT 75 H Alkaline Phosphatase 84 Ammonia Troponin I < 0.012 Total Protein 6.9 Albumin 4.1 Globulin 2.8 Albumin/Globulin Ratio 1.5 Lipase 149 Procalcitonin Salicylates U Opiates 300ng/mL cut Ur Oxycodone Screen Urine Methadone Screen Acetaminophen Ur Barbiturates Screen U Tricyclic Antidepress Ur Phencyclidine Scrn Ur Amphetamines Screen U Methamphetamines Scrn Ur MDMA Scrn (Ecstasy) U Benzodiazepines Scrn Urine Cocaine Screen U Marijuana (THC) Screen Ethyl Alcohol < 10 COVID-19 PCR 07/02/19 07/02/19 07/02/19 12:05 12:05 12:22 WBC RBC Hgb Hct MCV MCH MCHC RDW Plt Count Neut % (Auto) Lymph % (Auto) [place] % (Auto) Eos % (Auto) Baso % (Auto) Neut # (Auto) Lymph # (Auto) [place] # (Auto) Eos # (Auto) Baso # (Auto) PT INR APTT Sodium Potassium Chloride Carbon Dioxide BUN Creatinine Estimated GFR BUN/Creatinine Ratio Glucose Lactate 5.5 H* Calcium Ferritin Total Bilirubin GGT AST ALT Alkaline Phosphatase Ammonia Troponin I Total Protein Albumin Globulin Albumin/Globulin Ratio Lipase Procalcitonin 0.08 Salicylates < 1.0 U Opiates 300ng/mL cut Ur Oxycodone Screen Urine Methadone Screen Acetaminophen < 10 L Ur Barbiturates Screen U Tricyclic Antidepress Ur Phencyclidine Scrn Ur Amphetamines Screen U Methamphetamines Scrn Ur MDMA Scrn (Ecstasy) U Benzodiazepines Scrn Urine Cocaine Screen U Marijuana (THC) Screen Ethyl Alcohol COVID-19 PCR 07/02/19 07/02/19 07/02/19 14:20 14:20 15:15 WBC RBC Hgb Hct MCV MCH MCHC RDW Plt Count Neut % (Auto) Lymph % (Auto) [place] % (Auto) Eos % (Auto) Baso % (Auto) Neut # (Auto) Lymph # (Auto) [place] # (Auto) Eos # (Auto) Baso # (Auto) PT INR APTT Sodium Potassium Chloride Carbon Dioxide BUN Creatinine Estimated GFR BUN/Creatinine Ratio Glucose Lactate 1.5 Calcium Ferritin Total Bilirubin GGT AST ALT Alkaline Phosphatase Ammonia < 9 L Troponin I Total Protein Albumin Globulin Albumin/Globulin Ratio Lipase Procalcitonin Salicylates U Opiates 300ng/mL cut Negative Ur Oxycodone Screen Negative Urine Methadone Screen Negative Acetaminophen Ur Barbiturates Screen Negative U Tricyclic Antidepress Negative Ur Phencyclidine Scrn Negative Ur Amphetamines Screen Negative U Methamphetamines Scrn Negative Ur MDMA Scrn (Ecstasy) Negative U Benzodiazepines Scrn Negative Urine Cocaine Screen Negative U Marijuana (THC) Screen Negative Ethyl Alcohol COVID- PCR 07/02/19 07/02/19 07/03/19 19:23 19:23 04:53 WBC RBC Hgb Hct MCV MCH MCHC RDW Plt Count Neut % (Auto) Lymph % (Auto) [place] % (Auto) Eos % (Auto) Baso % (Auto) Neut # (Auto) Lymph # (Auto) [place] # (Auto) Eos # (Auto) Baso # (Auto) PT 11.6 D INR 1.0 APTT Sodium Potassium Chloride Carbon Dioxide BUN Creatinine Estimated GFR BUN/Creatinine Ratio Glucose Lactate Calcium Ferritin Total Bilirubin GGT AST ALT Alkaline Phosphatase Ammonia Troponin I Total Protein Albumin Globulin Albumin/Globulin Ratio Lipase Procalcitonin Salicylates U Opiates 300ng/mL cut Ur Oxycodone Screen Urine Methadone Screen Acetaminophen Ur Barbiturates Screen U Tricyclic Antidepress Ur Phencyclidine Scrn Ur Amphetamines Screen U Methamphetamines Scrn Ur MDMA Scrn (Ecstasy) U Benzodiazepines Scrn Urine Cocaine Screen U Marijuana (THC) Screen Ethyl Alcohol COVID- PCR Cancelled Negative 07/03/19 07/03/19 04:53 04:53 WBC 4.6 RBC 3.20 L Hgb 11.7 L Hct 33.9 L MCV 105.9 H MCH 36.7 H MCHC 34.7 RDW 13.5 Plt Count 111 L Neut % (Auto) 67.0 Lymph % (Auto) 15.8 L [place] % (Auto) 15.0 H Eos % (Auto) 1.2 L Baso % (Auto) 1.0 Neut # (Auto) 3100 Lymph # (Auto) 700 L [place] # (Auto) 700 Eos # (Auto) 100 Baso # (Auto) 0 PT INR APTT Sodium 134 L Potassium 3.9 Chloride 102 Carbon Dioxide 25 BUN 8 L Creatinine 0.67 Estimated GFR > 60.0 BUN/Creatinine Ratio 11.9 Glucose 94 Lactate Calcium 8.6 Ferritin 1340 H Total Bilirubin 1.1 GGT 289 H AST 117 H ALT 69 H Alkaline Phosphatase 79 Ammonia Troponin I Total Protein 6.3 Albumin 3.5 Globulin 2.8 Albumin/Globulin Ratio 1.3 Lipase Procalcitonin Salicylates U Opiates 300ng/mL cut Ur Oxycodone Screen Urine Methadone Screen Acetaminophen Ur Barbiturates Screen U Tricyclic Antidepress Ur Phencyclidine Scrn Ur Amphetamines Screen U Methamphetamines Scrn Ur MDMA Scrn (Ecstasy) U Benzodiazepines Scrn Urine Cocaine Screen U Marijuana (THC) Screen Ethyl Alcohol COVID-19 PCR Assessment & Plan Assessment & Plan narrative: 74-year-old male admitted for weakness and confusion with atrial fibrillation rapid ventricular rate, HD #2 Assessment 1. Confusion change in mental status suspect related to alcoholism and acute alcohol withdrawal CIWA protocol this morning reveal a score 6, mild withdrawal. Patient very alert this morning, answer all questions appropriately. Labs consistent with alcoholism with an elevated GGT, ferritin, and LFTs. Will start physical therapy today to help with weakness. Echo pending. Lactic acid and repeat CBC and CMP in the morning. Discussed transfer to inpatient rehabilitation for alcoholism status post discharge, patient amenable, will arrange. Assessment 2. Atrial fibrillation with rapid ventricular rate with negative troponin suspect related to alcohol abuse Plan: Showing good rate control now, will continue metoprolol ER 25 mg twice daily. INR has normalized. Echo pending. Assessment 3. Liver dysfunction with abnormal coagulation factors. Plan: No evidence of bleeding, INR normalized. Guaiac pending. LFTs trending down. Will continue to trend CBC none hold Tylenol. Assessment 4. Anemia of unclear etiology macrocytic Plan: Likely secondary to liver failure from alcoholism. Please see above. Assessment 5. Hypertension, controlled Plan: Metoprolol, will continue to monitor. GI prophylaxis: Protonix DVT prophylaxis: SCDs Code: Full
[2019-07-03] MEDS: METOPROLOL ER 25 MG TABLET PO (09:00)
[2019-07-03] MEDS: PANTOPRAZOLE 40 MG VIAL IV (09:02)
[2019-07-03] MEDS: LORazepam 2 MG/ML INJ 0.5 MG IV ×3 (09:02→14:11)
--- NOTE | 2019-07-03 11:17 | PT.IIE ---
Medical History (Last Reviewed 07/02/19 @ 15:08 by Master Medina DO) Alcohol abuse (Acute) Atrial fibrillation (Acute) Physical Therapy Inpatient Evaluation/Re-Eval M1 PT/OT-IP Prior Functional Status Start: 07/03/19 13:36 Freq: NEEDED Status: Active Protocol: Document 07/03/19 11:17 AB (Rec: 07/03/19 14:05 AB [id number]) Medical Review Prior Functional Status Medical History Reviewed Yes Communication with confusion and impulsive but able to answer questions appropriately Mobility and Gait pt stated that he is indpeendent with all mobilities and ambulation without AD Social History Household Members spouse Living Arrangements House Number of Floors (Floors) Two Floors Number of Stairs To Enter/Railing? has 3 steps to enter with bilateral wide rails and can only hold on to one rail at a time has 14 steps with L rail and R rail is only 1/2 way Home Environment Standard Height Toilet,Walk in Shower Home Equipment Grab Bars Near Toilet Additional Social History Comment h/o falls per pt: stated that he falls every 2 year and last fall was 2 months ago M2 PT-IP Current Condition Start: 07/03/19 13:36 Freq: NEEDED Status: Active Protocol: Document 07/03/19 11:17 AB (Rec: 07/03/19 14:05 [id number]) Physical Therapy Current Condition Current Condition Evaluation Date 07/03/19 Treatment Diagnosis a-fib; alcohol withdrawal; difficulty in walking Onset Date 07/02/19 Precautions Other Precautions falls M3 PT-IP Subjective Start: 07/03/19 13:36 Freq: NEEDED Status: Active Protocol: Document 07/03/19 11:17 AB (Rec: 07/03/19 14:05 AB [id number]) Subjective Physical Therapy Visit Type Type Initial Evaluation Visit Start Time 11:17 Visit Stop Time 11:38 Total Visit Minutes 21 Number of PRESALES CONSULTANT Visits 0 M4 PT-IP Mobility and Gait Start: 07/03/19 13:36 Freq: NEEDED Status: Active Protocol: Document 07/03/19 11:17 AB (Rec: 07/03/19 14:05 AB [id number]) PT-Bed Mobility Assessment Supine to Sit Supine to Sit Standby Assistance Sit to Supine Sit to Supine Standby Assistance PT-Transfer Assessment Sit to and From Stand Sit to and from Stand Moderate Assistance,Maximum Assistance,1 Person Assistance ,Use of Upper Extremities Equipment Transfer Assistive Device Gait Belt,Front Wheeled Walker Transfers Transfer Destination Bed,Chair Transfer Ability Level of Assist Maximum Assistance,1 Person Assistance,Use of Upper Extremities Comments Mobility Comments pt sitting on bedside commode with nursing. assisted nursing with pt's care. pt completed sit to stand from bedside commode max A and max cues. used FWW for support requiring mod to max A with standing balance while nurse assisted pt with hygiene care and brief management. pt. had to sit back down in between care due to decrease activity tolerance. pt with increase posterior trunk LOB during standing requiring max A and unable to follow direction with use of FWW for support. pt sat back down on the bedside commode and rested . completed sit to stand again max A and cues. pt ambulated using FWW ~ 10 to the bed max A and cues. pt presents with very unsteady ataxic gait with increase posterior LOB requiring assist for steadiness and use of FWW . pt completed supine<>sit SBA. pt agreed to sit up on chair. completed pivot transfer using FWW max A and max cues. pt let go of FWW and reach for the chair midway transfer requiring max A 1-2 for steadiness and stabiliity. positioned pt on chair. informed nurse that pt requires a chair alarm. call light and table placed within reach. Gait Assessment Gait Gait Assistance Required: Maximum Assistance,1 Person Assist Distance (Feet) 10 Able to Maintain Weight Bearing Status Yes During Gait Assistive Devices Assistive Device Gait Belt,Front Wheeled Walker Orthotic/Prosthetic Devices or Brace: No Gait Deviations General Gait Pattern Ataxic,Decreased Stride Length ,Decreased Feet Clearance,Step -to Gait Factors Limiting Gait Function Factors Limiting Gait Function Decreased Activity Tolerance, Decreased Strength,Difficulty Following Directions, Incoordination,Poor Balance, Poor Safety Awareness Comments Gait Comments pls refer to mobility section for details PT-Balance Assessment Sitting Balance and Reactions Static Sitting Balance Ability Good Dynamic Sitting Balance Ability Fair Standing Balance and Reactions Static Standing Balance Ability Poor Dynamic Standing Balance Ability Poor Device Used FWW M5 PT-IP Objective Assessments Start: 07/03/19 13:36 Freq: NEEDED Status: Active Protocol: Document 07/03/19 11:17 AB (Rec: 07/03/19 14:05 AB [id number]) Orientation Orientation/Cognition Level of Alertness Alert Orientation Name Safety Awareness Decreased Safety Awareness Gross Range of Motion Lower Extremity ROM Assessment Within Functional Limits Strength Lower Extremity Strength Assessment Bilaterally Impaired Hip 3+/5 Knee 3+/5 Coordination Assessment Gross Coordination Gross Coordination Impaired M6 PT-IP Treatment Start: 07/03/19 13:36 Freq: NEEDED Status: Active Protocol: Document 07/03/19 11:17 AB (Rec: 07/03/19 14:05 AB [id number]) Physical Therapy Treatment Education Education Provided Safety M7 PT-IP Assessment and Plan Start: 07/03/19 13:36 Freq: NEEDED Status: Active Protocol: Document 07/03/19 11:17 AB (Rec: 07/03/19 14:05 AB [id number]) PT Summary Assessment and Plan Potential Rehabilitation Potential Fair Status of Condition at Evaluation Evolving Summary Impairments Pain,ROM,Strength,Balance, Coordination,Sensation,Tone, Cognition,Bed Mobility, Transfers,Gait,Activity Tolerance Assessment Summary pt requires max A x 1-2 and max cues with all tasks and is very impulsive. Pt stated that spouse will not be able to assist him much at home. pt will require SNF rehab to improve mobility independence and safety awareness. Goals Bed Mobility Goal Independent Transfer Goal Contact Guard Assistance,Front Wheeled Walker Gait Goal Contact Guard Assistance,Front Wheel Walker Gait Distance 100 Other Goals up/down 14 steps L rail ascending SBA Days to Meet Goals 10 Frequency of Treatment Frequency Of Treatment Once a Day Treatment Plan Physical Therapy Treatment Plan Bed Mobility Training,Transfer Training,Gait Training, Therapeutic Exercise,Balance Retraining,Discharge Planning, Hot or Cold Pack,Neuromuscular Re-ed,Coordination Retraining Recommendations To Nursing Amount of Assist Needed 2 Person Assist Discharge Recommendations PT Discharge Recommendations SNF Rehab Transportation Needs at Discharge Wheelchair/Cabulance
--- NOTE | 2019-07-03 13:54 | PC.NURSE ---
Addendum entered by Kim Varghese R.N. 07/03/19 15:25: Echo to be done 07/03 d/t scheduling and CIWA. Addendum entered by Kim Varghese R.N. 07/03/19 14:25: Pt is requiring 1:1 supervision, due to impulsive behavior. Call again to Dr Reyna office for adjustment on CIWA meds/add protocol Message with office staff. Original Note: Am shift Pt is pleasant and cooperative this am, forgetful. Impulsive, getting up and needs reminding for staff assist. Pt verbalizes willingness to go to inpatient therapy, and has spoken with Shalonda recently, who notified him of need for medical clearance r/t afib. Pt poor historian of home medications and rationale for meds being taken. BA active. 97% RA. Denies pain, fragile skin with bruising noted BUE. CIWA [address] reyna into see Pt. PT assessed and 2PA with FWW due to poor direction following. After Pt lunch, noted increased sweating, shaking much worse, CIWA score of 13. Pt had had PRN Ativan , call into Dr Reyna, unavailable, will update on return call about change in status. HR Afib 100's at present. 1400-Pt continues to impulsively get up from bed. Medicated with Ativan.
[2019-07-03] MEDS: LORazepam 2 MG/ML INJ (14:52)
--- NOTE | 2019-07-03 15:31 | CM.IDA ---
Initial DCP Assessment Note: Patient is a 74 yo male, resident of [place]. Patient admitted observation for afib w/RVR and ETOH w/d, and changed today to inpt, 07.03.19. PCP: Cris Reyna Payer: [facility] Reviewed chart this morning and discussed POC w/Dr Reyna. Dr Reyna expects patient will be medically stable, at the earliest, tomorrow and requests this FLOATER OPERATOR discuss options for inpt ETOH treatment w/patient. Patient has shared w/Dr Reyna he would like to stop drinking and is agreeable to inpt treatment. 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 Attempted to meet w/patient this afternoon for SHABANA assessment; HUAN Alvarez suggested waiting for now as patient's agitation is increasing d/t w/d process. Echo scheduled now for 07.04.19. This FLOATER OPERATOR following closely and will plan to assess when appropriate and patient able to participate. JEROME Mccoy Discharge Planning/Care Management CM Discharge Assessment Start: 07/03/19 15:28 Freq: Status: Active Protocol: Document 07/03/19 15:28 TUCKER (Rec: 07/03/19 15:30 TUCKER [id number]) Discharge Planning Assessment Assigned Top Distribution Executive JEROME Whaley DPOA/Assigned Designee Name Marya Porter, spouse Contact Information [phone] Advance Directives? Yes History Provided By Medical Record Prior Living Arrangements House Household Members spouse Type of transportation used prior to Drives own vehicle admit Independent with ADL's Yes Is patient alert and oriented? Yes Comment Inpt Treatment for ETOH Barriers to Discharge Yes Comment Heavy alcohol use, patient wanting to remain sober, requesting treatment Discharge Plan Drug Rehabilitation Transportation Arrangement Family Review Status In Process
[2019-07-03] MEDS: MULTIVITAMIN 1 TABLET 1 TAB PO (15:52)
[2019-07-03] MEDS: LORazepam 2 MG/ML INJ IV ×7 (16:15→17:40)
[2019-07-03] MEDS: PHENobarbital 130 MG/ML VIAL IV ×2 (17:15→19:51)
[2019-07-03] MEDS: diazePAM 10 MG/2 ML SYRINGE 5 MG IV (17:30)
[2019-07-03] MEDS: fentaNYL 100 MCG/2 ML INJ IV (18:00)
--- NOTE | 2019-07-03 18:17 | DI.RAD.S_ITS ---
PROCEDURE: XR CHEST 1V INDICATIONS: S/P Intubation TECHNIQUE: One view of the chest was acquired. COMPARISON: [facility], , XR CHEST 1V, 07/02/2019, 14:19. FINDINGS: Surgical changes and devices: There is a new endotracheal tube with the tip approximately 2 cm from the lyla. Lungs and pleura: There is patient rotation slightly limiting evaluation. There are new left retrocardiac opacities consistent with atelectasis or consolidation. There is also increased mild pulmonary edema. A small left pleural effusion is suspected. Mediastinum: Mediastinal contours appear unchanged given rotation. Heart size is normal. Bones and chest wall: No suspicious bony lesions. Overlying soft tissues appear unremarkable. IMPRESSION: 1. New endotracheal tube tip approximately 2 cm from the lyla. Recommend withdrawal by approximately 2 cm. 2. New left retrocardiac consolidation or atelectasis as well as increased pulmonary edema. 3. Suspected small left pleural effusion. Dictated by: Dorian Solano M.D. on 07/03/2019 at 18:40 Approved by: Dorian Solano M.D. on 07/03/2019 at 19:02
--- NOTE | 2019-07-03 18:24 | PM.DS.1 ---
History of Present Illness History of Present Illness Date Patient Seen: 07/03/19 Time Patient Seen: 18:24 Chief complaint: Weak, heart issues and Doesn't feel good Narrative: This pleasant 74-year-old male who is under the primary care of Dr. Reyna presents to the emergency department with complaints of severe weakness and confusion. CT scan of the head was negative and neurologic exam was nonfocal. Patient was found to be in atrial fibrillation with a rapid ventricular response and was given metoprolol with improvement in his heart rate. Due to overall deconditioning concerned that he was experiencing acute delirium tremens he was admitted to the hospital for further treatment. He is given varied history is of having alcohol today having it yesterday having it 3 days prior as the last time that he drink. He has a history of alcohol abuse and has been battling with this. He currently has been drinking but I do not have a quantification for, which his intake has been on a daily basis. He has had a history of atrial fibrillation and typically it has not persisted for more than 15 minutes. He has been on anticoagulants in the past and is not clear why these were stopped but I suspect it is due to his history of alcoholism and his frequent falls and unsteady gait. Review of systems is negative other than above Patient denies any abdominal complaints. He denies any abdominal pain. He denies any bright red blood per rectum. He denies any bloody stools. He denies any weight loss. He denies any reflux. He does not have any history of GI bleeds. Patient denies chest pain. Patient denies shortness of breath or palpitations. He has felt poorly has felt dizzy and lightheaded Patient denies headache. Patient denies seizures Patient denies depression Past medical history: 1. Alcoholism 2. Atrial fibrillation 3. Hypertension 4. Hyperlipidemia 5. BPH without obstruction 6. Colon polyps 7. Gout 8. 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 Simons 07/03/19 Consult to Anesthesiologist, Dr. Gonsalez 07/03/19 Discharge provider: Cris Reyna MD Summary Hospital Course Discharge Diagnosis: 1. Status epilepticus 2. Acute alcohol withdrawal 3. Atrial fibrillation with rapid ventricular rate 4. Hypertension 5. Hyperlipidemia 6. BPH without obstruction 7. History of colonic polyps 8. Gout Hospital Course: This 74-year-old gentleman was admitted for acute alcohol withdrawal and associated atrial fibrillation with rapid ventricular rate on 07/02/19. Reported that his last drink was 1 day prior to presentation. [facility] protocol was followed and in the first 40 hours, scores were all in the mild category, approximately 6; he was administered Ativan per protocol and appeared to be at his neurological baseline when seen this morning during rounds. He denied pain and said that he just felt a little weak. He was interested in going into inpatient detoxification at that time, this is his first lifetime interest in sobriety. At approximately 16:30, [facility] protocol was noted to be 14 and patient was administered 2 mg of Ativan per protocol. At 16:38, he began having a generalized tonic clonic seizure and I was called to the bedside. Patient was noted to have flexural posturing and fixed pupils. Over the following hour, patient was given Ativan 4 mg IV every 10 minutes for a total of 16 mg, phenobarbital 130 mg IV every 20 minutes for a total of 260 mg, and 1 dose of Valium 5 mg. This treatment still did not stop his seizure activity. During this time, patient was in atrial fibrillation with a ventricular rate between 130-170, blood pressure 157/113, and O2 saturation was 95% on 3 L per nasal cannula. Patient was in and out of consciousness and seizures appeared to come in waves, with some breaks in between, lasting approximately seconds to minutes in which he was able to make eye contact but speech was confused and mumbling. He was diaphoretic and breathing was shallow. Cold packs were placed to his head, armpits, and groin. Pupils were fixed but not dilated and not reactive to light during seizure activity. Accucheck was 102. Consultation was then made to hospitalist and [facility]. [facility] recommended paralysis and intubation for refractory status epilepticus. Dr. Gonsalez, anesthesiology was consulted and intubated the patient at approximately 18:10. Induction agent was succinylcholine. Patient was then paced on a propofol drip at 10 mcg/kg/min. Consultation for transfer to a facility with higher level of care was made. At 18:40, patient began seizing again, and fentanyl 50 mcg IV x1 was administered which initially helped but then he began seizing again. At 18:55, he was given 4 mg of Ativan which again helped temporarily but did not stop the seizure. ABG at 19:06 revealed a pH of 7.423, pCO2 33.9, PO2 144, base excess -2, bicarb 22.1 and O2 saturation 99%. At 19:20, he was placed on a rocuronium drip 12 mcg/kg/min and given a 1200 mg IV loading dose of keppra. Stat CBC, CMP, Mg, PO4, and phenobarbital level showed no significant changes from his morning labs. Sodium dropped from 134-133. AST/ALT changed from 117/72 to 114/72. Patient maintains a macrocytic anemia with a hemoglobin/hematocrit of 11.0/31.2. Platelets are 115. Magnesium 1.6, phosphorus 3.7. At current time, 20:20, patient is no longer seizing. Phenobarbital is pending. Dr. Garcia, neurointensivist at [facility] as well as Dr. Todd, neurologist at same facility, consulted and they kindly agreed to accept care, CT head without contrast advised prior to transport, results pending. Patient has been tested for coronavirus and was negative on 07/02/19 at 12:00. MAP prior to transfer is 111, rhythm is atrial fibrillation with a ventricular rate of 84-97. O2 saturation 99% on 30% of FiO2. Greater than 4 hours and 31 minutes was spent [id number] with greater than 50% of the time directed towards stabilizing patient during critical care transport. I was unable to care for other patients during this time due to his high medical acuity. Status at Discharge Functional status at discharge: bed bound Overall status at discharge: patient is not back to baseline Exam Vital Signs (past 8 hours): - 07/03/19 11:00 07/03/19 12:44 07/03/19 14:50 Temperature 98.7 F Pulse Rate 116 H 74 140 H Respiratory Rate 26 H 20 24 Blood Pressure 124/77 134/98 H 161/99 H Pulse Oximetry 97 07/03/19 15:25 07/03/19 15:44 Temperature 98.0 F Pulse Rate 126 H 126 H Respiratory Rate 20 18 Blood Pressure 153/111 H 153/111 H Pulse Oximetry 95 Oxygen Delivery Method Room Air Oxygen Flow Rate 0 Narrative Exam Narrative: GENERAL: Intubated, sedated. No acute distress. HEENT: Head normocephalic/atraumatic. Pupils equal, round, and non-reactive to light and accomodation. Extraocular muscles intact. Tympanic membranes clear. Nasal cannula in place. Neck soft and supple, no lymphadenopathy. LUNGS: Clear to ausculation bilaterally, no wheezes, rhonchi or rales. CV: Irregular irregular, no audible murmurs, rubs or gallops. ABDOMEN: Soft, non-tender , non-distended, no organomegaly. Positive bowel sounds. No hepatosplenomegaly. No ascites. EXTREMITIES: No clubbing, cyanosis, or edema. NEURO: Currently paralyzed, intubated. PSYCH: Currently sedated. SKIN: Ecchymosis, bilateral forearms. Objective Labs Result Diagrams: 07/03/19 18:54 07/03/19 18:54 Labs: Laboratory Results - last 24 hr 07/02/19 07/02/19 07/03/19 19:23 19:23 04:53 WBC RBC Hgb Hct MCV MCH MCHC RDW Plt Count Neut % (Auto) Lymph % (Auto) [place] % (Auto) Eos % (Auto) Baso % (Auto) Neut # (Auto) Lymph # (Auto) [place] # (Auto) Eos # (Auto) Baso # (Auto) PT 11.6 D INR 1.0 Sodium Potassium Chloride Carbon Dioxide BUN Creatinine Estimated GFR BUN/Creatinine Ratio Glucose Calcium Ferritin Total Bilirubin GGT AST ALT Alkaline Phosphatase Total Protein Albumin Globulin Albumin/Globulin Ratio COVID-19 PCR Cancelled Negative 07/03/19 07/03/19 04:53 04:53 WBC 4.6 RBC 3.20 L Hgb 11.7 L Hct 33.9 L MCV 105.9 H MCH 36.7 H MCHC 34.7 RDW 13.5 Plt Count 111 L Neut % (Auto) 67.0 Lymph % (Auto) 15.8 L Norton % (Auto) 15.0 H Eos % (Auto) 1.2 L Baso % (Auto) 1.0 Neut # (Auto) 3100 Lymph # (Auto) 700 L Norton # (Auto) 700 Eos # (Auto) 100 Baso # (Auto) 0 PT INR Sodium 134 L Potassium 3.9 Chloride 102 Carbon Dioxide 25 BUN 8 L Creatinine 0.67 Estimated GFR > 60.0 BUN/Creatinine Ratio 11.9 Glucose 94 Calcium 8.6 Ferritin 1340 H Total Bilirubin 1.1 GGT 289 H AST 117 H ALT 69 H Alkaline Phosphatase 79 Total Protein 6.3 Albumin 3.5 Globulin 2.8 Albumin/Globulin Ratio 1.3 COVID-19 PCR Discharge Plan Discharge Plan Patient Disposition: [facility] Other facility: [facility] Under care of provider: Dr. Garcia, neurointensivist, Dr. Todd, neurology Discharge Health Status Multidrug resistant organism: No MDRO Precautions: [place] Diet/Activity/Treatments Diet: Nothing by Mouth Activity: bedrest Discharge Data Primary Care Provider: Cris Reyna
[2019-07-03] MEDS: propofoL 1,000 MG/100 ML VIAL 2.313 MG IV (18:30)
[2019-07-03 19:05] LABS: Add Manual Diff / Slide Review NO; Basophils Absolute Auto 0 /uL (0-100); Basophils Percent Auto 1.1 % (0-2); Eosinophils Absolute Auto 0 /uL (0-450); Eosinophils Percent Auto 0.5 % (2-4); Hematocrit 31.2 % (41-53); Lymphocytes Absolute Auto 500 /uL (1100-4500); Lymphocytes Percent Auto 11.9 % (25-40); Mean Corpuscular HGB Conc 35.2 % (30-36); Mean Corpuscular Hemoglobin 37.2 PG (26-34); Mean Corpuscular Volume 105.7 fL (80-100); Monocytes Absolute Auto 400 /uL (0-900); Neutrophils Absolute Auto 3100 /uL (1500-7000); Neutrophils Percent Auto 75.5 % (50-75); Platelet Count 97 X10^3/uL (150-400); Red Blood Cell Count 2.95 X10^6/uL (4.5-5.9); White Blood Cell Count 4.1 X10^3/uL (4.5-11.0)
--- NOTE | 2019-07-03 19:11 | PM.PROC.1 ---
Procedures Date/Time Date of procedure: 07/03/19 Time of procedure: 18:15 Intubation Time out performed: Yes Sedative: other (premedicated with 50mcg fentanyl, then 170mg propofol) Mg given: 170 Paralytic: succinylcholine Mg given: 100 Laryngoscope: fiber optic video scope ET tube size: 7.5 ET tube uncuffed: No Tube secured depth (cm): 23 Tube secured location: teeth Tube placement confirmation: visualized tube passing through cords, equal breath sounds bilaterally and confirmation by capnometry Patient tolerated procedure: well and no complications Intubation complications: none Additional comments: Pre-oxygenation by RT, mask. Monitors. RSI. DL x 1 Glidescope, grade 1. 7.5 to 23cm at teeth. CO2 confirmation. VSS throughout and post-procedure.
[2019-07-03] MEDS: ROCURONIUM IV (19:20)
[2019-07-03] MEDS: SODIUM CHLORIDE 0.9% IV (19:20)
[2019-07-03 19:32] LABS: Alanine Aminotransferase 72 IU/L (<50); Albumin 3.2 g/dL (3.5-5.0); Albumin Globulin Ratio 1.2 (1.0-2.8); Alkaline Phosphatase 66 U/L (38-126); Aspartate Aminotransferase 114 IU/L (17-59); BUN Creatinine Ratio 14.8 (6-22); Bilirubin Total 0.8 mg/dL (0.2-1.3); Blood Urea Nitrogen 12 mg/dL (9-20); Calcium 8.2 mg/dL (8.4-10.2); Carbon Dioxide 22 mmol/L (22-32); Chloride 104 mmol/L (98-107); Estimated Glomerular Filt Rate > 60.0 mL/min (>60); Globulin 2.7 g/dL (1.7-4.1); Glucose 115 mg/dL (80-110); HEMOLYSIS < 15 (0-50); Magnesium 1.7 mg/dL (1.6-2.3); Phosphorous 3.7 mg/dL (2.3-3.7); Potassium 3.5 mmol/L (3.4-5.1); Sodium 133 mmol/L (137-145); Total Protein 5.9 g/dL (6.3-8.2)
[2019-07-03] MEDS: levETIRAcetam 1,500 MG in SODIUM CHLORIDE 0.9% 100 ML 460 ML IV (19:44)
[2019-07-03 20:12] LABS: PCO2 ABG 33.9 mmHg (35-45); PO2 ABG 144 mmHg (80-100); pH ABG 7.42 (7.35-7.45)
[2019-07-03 20:13] LABS: Fractionated Inspired Oxygen 50; HCO3 ABG 22 mmol/L (22-26); Oxygen Saturation ABG 99 % (95-100); TCO2 ABG 23 mmol/L (21-31)
--- NOTE | 2019-07-03 20:17 | PC.NURSE ---
Addendum entered by Savanna Iniguez R.N. 07/03/19 22:03: 2130- Patient transported via [facility] To [facility]. Stable at time of discharge. Original Note: 1645- Staff emergency called for patient seizure. Medicated with Ativan per order. Transferred to ICU room 230. Dr. Reyna here to see patient. 1700- Patient continues seizures medicated per order. Two IV's started one left forearm, one right forearm. Patient given IV phenobarbitol per order. Seizure activity continues. MD at bedside. 1730- Patient up to 18mg IV push Ativan, continues to have seizure activity. Valium 5mg given per order IVP. Plan to intubate once anestesia arrives. 1800- Patient intubated ETT 23 at the teeth, 7.5. XRay done radiology called to have tube pulled back to 21cm at the teeth, Respiratory here to move tube, repeat XRay obtained. 2030- Patient transported to [facility] for CT of the head. Patient tolerated well. Report called to [facility]. Await transport team. Patient is stable at this time.
--- NOTE | 2019-07-03 20:28 | PC.NURSE ---
Patient was resting in bed, able to communicate and make needs known to staff. ICU came to nurse regarding sustained RVR in th160's-170's. Call placed to Dr. Reyna's office at 1630 regarding a new plan and treatment to decrease heart rate. At 1638, while on hold this nurse saw the Mr. Porter's arms get ridged and go straight up in the air. I summons ICU nurse to help as I was certain Mr. Porter was having a seizure. Rapid response was called as patient had two back to back seizures with nursing staff at bedside. Immediate trans. to ICU. Patient cont. to have back to back seizures despite treatment given to help minimize. Dr. Gilbert was called by charge nurse and arrived to floor for bedside orders and treatment. This nurse was able to step away once patient was intubated and under the full care of ICU nursing staff to call spouse. Spouse Marya was informed of the situation and current state of patient. is a informed decision maker for patient. Code status had not been address in computer. This nurse received verbal consent to place patient on a FULL CODE status and to transfer to available hospital. I informed spouse that I would call back with update on which hospital patient was to be sent to when he was admitted. Call was placed to spouse with information of patient trans. to [facility]. Dr. Reyna states she will call Spouse, Marya when she is able to, for a update and patient status.
== END 2019-07-03 21:30 | disposition short-term general hospital (02) | DRG 897 ==
LOC: ED 14:06 → AC 14:36 → ICU 07-03 16:48
PROVIDERS: Family Medicine; Admitting Provider Student in an Organized Health Care Education/Training Program; Emergency Provider Emergency Medicine; PCP Student in an Organized Health Care Education/Training Program; Referring Provider Emergency Medicine; Visit Provider Student in an Organized Health Care Education/Training Program
DX: F10.231 Alcohol dependence with withdrawal delirium (principal); G40.911 Epilepsy, unspecified, intractable, with status epilepticus; I48.20 Chronic atrial fibrillation, unspecified; Z87.891 Personal history of nicotine dependence; I10 Essential (primary) hypertension; E78.5 Hyperlipidemia, unspecified; N40.0 Benign prostatic hyperplasia without lower urinary tract symptoms; M10.9 Gout, unspecified; F10.239 Alcohol dependence with withdrawal, unspecified
CPT/HCPCS: 36415; 36600; 70450; 71045; 80053; 80184; 80305; 80320; 80329; 81003; 82140; 82728; 82805; 82977; 83605; 83690; 83735; 84100; 84145; 84484; 85025; 85610; 85730; 87635; 93005; 94002; 94770; 94799; 96365; 96366; 96375; 96376; 97162; 99285; C9113; G0480; J1953; J2060; J2560; J2704; J3010; J3360; J3475

== ENCOUNTER 2019-10-12 12:51 | Observation (INO) | payer MEDICARE, OTHER, SELFPAY ==
[2019-07-02 16:37] VITALS: BMI 24.7
[2019-07-03 21:02] VITALS: PULSE 98; RESP 16; O2SAT 98
[2019-10-12] VITALS (31 sets, daily range): BP systolic 108–165; BP diastolic 48–98; PULSE 87–134; RESP 13–22; TEMP 36.4–36.7; O2SAT 93–98; BMI 24.3
--- NOTE | 2019-10-12 13:04 | DI.RAD.S_ITS ---
PROCEDURE: XR CHEST 1V INDICATIONS: chest pain TECHNIQUE: One view of the chest was acquired. COMPARISON: [facility], CR, XR CHEST 1V, 07/03/2019, 19:03. FINDINGS: Surgical changes and devices: None. Lungs and pleura: Lungs are clear. No pleural effusions or pneumothorax. Mediastinum: Mediastinal contours appear normal. Heart size is normal. Bones and chest wall: No suspicious bony lesions. Overlying soft tissues appear unremarkable. IMPRESSION: No acute cardiopulmonary findings. Dictated by: Baylee Lynch M.D. on 10/12/2019 at 13:00 Approved by: Baylee Lynch M.D. on 10/12/2019 at 13:00
[2019-10-12 13:25] LABS: Add Manual Diff / Slide Review NO; Basophils Absolute Auto 100 /uL (0-100); Basophils Percent Auto 1.5 % (0-2); Eosinophils Absolute Auto 0 /uL (0-450); Eosinophils Percent Auto 0.7 % (2-4); Hematocrit 38.1 % (41-53); Hemoglobin 12.6 g/dL (13.5-17.5); Lymphocytes Absolute Auto 1100 /uL (1100-4500); Lymphocytes Percent Auto 19.6 % (25-40); Mean Corpuscular Hemoglobin 31.2 PG (26-34); Mean Corpuscular Volume 94.6 fL (80-100); Monocytes Absolute Auto 400 /uL (0-900); Monocytes Percent Auto 6.5 % (3-14); Neutrophils Absolute Auto 4100 /uL (1500-7000); Neutrophils Percent Auto 71.7 % (50-75); Platelet Count 262 X10^3/uL (150-400); Red Blood Cell Count 4.03 X10^6/uL (4.5-5.9); White Blood Cell Count 5.7 X10^3/uL (4.5-11.0)
[2019-10-12 13:30] LABS: Prothrombin Time 11.4 SECONDS (10.1-12.7)
[2019-10-12 13:33] LABS: PTT Partial Thromboplastin Tim 22 SECONDS (26.4-36.2)
[2019-10-12 13:34] LABS: Alanine Aminotransferase 14 IU/L (<50); Albumin 4.4 g/dL (3.5-5.0); Albumin Globulin Ratio 1.3 (1.0-2.8); Alkaline Phosphatase 52 U/L (38-126); Aspartate Aminotransferase 34 IU/L (17-59); BUN Creatinine Ratio 15.5 (6-22); Bilirubin Total 0.7 mg/dL (0.2-1.3); Blood Urea Nitrogen 13 mg/dL (9-20); Calcium 9.3 mg/dL (8.4-10.2); Carbon Dioxide 20 mmol/L (22-32); Chloride 107 mmol/L (98-107); Creatine Kinase 62 U/L (55-170); Estimated Glomerular Filt Rate > 60.0 mL/min (>60); Globulin 3.3 g/dL (1.7-4.1); Glucose 177 mg/dL (80-110); HEMOLYSIS 52 (0-50); Lipase 50 U/L (23-300); Sodium 140 mmol/L (137-145); Total Protein 7.7 g/dL (6.3-8.2)
[2019-10-12 13:35] LABS: Potassium 4.8 mmol/L (3.4-5.1)
[2019-10-12 13:45] LABS: Troponin I < 0.012 ng/mL (0.01-0.034)
--- NOTE | 2019-10-12 14:23 | ED.ARRPALP ---
HPI - Arrhythmia/Palpitations General Chief Complaint: Arrhythmia/Palpitations Stated Complaint: Heart Palpatations Time Seen by Provider: 10/12/19 13:45 Source: patient Mode of arrival: Ambulatory Limitations: no limitations History of Present Illness HPI narrative: 74-year-old gentleman with a history of atrial fibrillation, not anticoagulated, and alcohol use disorder presents with what he describes as acute onset atrial fibrillation with rapid ventricular response at 11:30 a.m. today. He states he is not aware of a history of chronic atrial fibrillation. Once his arrives she points out that this has been an issue. She also brings up his alcohol use disorder. He had an extensive hospital admission with complicated alcohol withdrawal in June with transfer to [facility] and extensive physical rehabilitation stay discharged home in early September and resumed drinking his usual amounts of bourbon once he was home. Review of hospital records indicate that 50 mg of metoprolol had been successful in controlling his chronic atrial fibrillation and due to his high risk for falls and drinking he was not anticoagulated. Once he was home again he has refused to take any medications and he states that he did not know he was supposed to continue his metoprolol. Related Data Home Medications Medication Instructions Recorded Confirmed No Known Home Medications 07/02/19 10/12/19 Allergies Allergy/AdvReac Type Severity Reaction Status Date / Time amoxicillin [AMOXICILLIN] Allergy Severe SWOLLEN JAW Verified 10/12/19 13:00 clindamycin [CLINDAMYCIN] AdvReac Severe C-DIFF Verified 10/12/19 13:00 Review of Systems Review of Systems Narrative: Review systems questions are answered however given the difference between his initial medical history and his 's interpretation the validity of this review of systems is certainly questionable Pertinent positive and negative findings as per HPI Remainder of review of systems is otherwise unremarkable for Constitutional: Fevers, chills, weakness ENT: No sore throat, neck pain, ear pain CV: Chest pain, palpitations, dyspnea on exertion Respiratory: Cough, wheeze, dyspnea GI: Nausea, vomiting, diarrhea, change in bowel habits, black or bloody stools : Dysuria, hematuria, flank pain MS: Muscle weakness, numbness, joint swelling or warmth Skin: Rashes, nonhealing lesions Neuro: Syncope, dizziness, tingling Patient History Medical History Alcohol abuse (Acute) Atrial fibrillation (Acute) Gout (Acute) HTN (hypertension) (Acute) Social History marital status: household members: spouse occupational status: previously employed Smoking Status: Former smoker alcohol intake: current substance use type: does not use Smoking Status: Former smoker alcohol intake frequency: 0-2 drinks per day Substance Use Type: does not use Exam Narrative Exam Narrative: General: Healthy appearing, in no acute distress. slight cognitive slowing, but fluent speech HEENT: Moist mucous membranes, normal sclera with reactive pupils, Neck: No JVD, supple Respiratory: Lungs are clear to auscultation, no wheezing no rales no rhonchi. Full and symmetrical air movement Cardiac: Irregular and tachycardic rate and rhythm no murmurs no bruits Abdomen: Soft nontender good bowel tones, no flank pain Skin: Warm and dry, no rashes Neurologic: Grossly neurologically intact with no obvious asymmetries or abnormalities, no gross signs of impairment and no withdrawal tremor Extremities: No trauma, well perfused Psych: Cooperative, appropriate insight and affect Initial Vital Signs Initial Vital Signs: Vital Signs Temperature 97.6 F 10/12/19 12:56 Pulse Rate 134 H 10/12/19 12:56 Respiratory Rate 22 10/12/19 12:56 Blood Pressure 139/89 10/12/19 12:56 Pulse Oximetry 97 10/12/19 12:56 Course Orders Ordered: Apixaban (Eliquis) 5 mg PO BID [facility] Last Admin: 10/12/19 23:34 Dose: Not Given Documented by: PRANAY Folic Acid (Folic Acid) 1 mg PO DAILY [facility] Lorazepam (Ativan) 0 mg IV CIWAPRN PRN; Protocol PRN Reason: Alcohol Withdrawal Last Admin: 10/12/19 20:33 Dose: 2 mg Documented by: PRANAY Metoprolol Tartrate (Lopressor) 50 mg PO BID [facility] Last Admin: 10/12/19 23:34 Dose: Not Given Documented by: PRANAY Multivitamins (Tab-A-Cherri) 1 tab PO DAILY [facility] Naloxone HCl (Narcan) 0.2 mg IV Q2MIN PRN PRN Reason: Opiate Reversal Ondansetron HCl (Zofran) 4 mg IV Q6HR PRN PRN Reason: Nausea And Vomiting Pantoprazole Sodium (Protonix) 40 mg PO 0700 MIKEL Thiamine HCl (Vitamin B-1) 100 mg PO DAILY MIKEL Stop: 10/16/19 09:01 Discontinued Medications Apixaban (Eliquis) 5 mg PO NOW ONE Stop: 10/12/19 14:25 Last Admin: 10/12/19 14:30 Dose: 5 mg Documented by: MAGGIE Magnesium Sulfate 2 gm/ Folic Acid 1 mg/ Thiamine HCl 100 mg / Multivitamins 10 ml/ Sodium Chloride 1,015.2 mls @ 125 mls/hr IV NOW ONE Stop: 10/13/19 02:51 Last Infusion: 10/13/19 03:58 Dose: 0 mls/hr Documented by: Admin: 10/12/19 19:30 Dose: 125 mls/hr Documented by: PRANAY Lorazepam (Ativan) 2 mg IV NOW ONE Stop: 10/12/19 17:42 Last Admin: 10/12/19 17:58 Dose: 2 mg Documented by: MAGGIE Metoprolol Tartrate (Lopressor) 5 mg IV NOW ONE Stop: 10/12/19 15:22 Last Admin: 10/12/19 16:04 Dose: 5 mg Documented by: MAGGIE Metoprolol Tartrate (Lopressor) 50 mg PO NOW ONE Stop: 10/12/19 15:22 Last Admin: 10/12/19 16:03 Dose: 50 mg Documented by: MAGGIE Metoprolol Tartrate (Lopressor) 5 mg IV NOW ONE Stop: 10/12/19 17:14 Last Admin: 10/12/19 17:21 Dose: 5 mg Documented by: MAGGIE Metoprolol Tartrate (Lopressor) 50 mg PO NOW ONE Stop: 10/12/19 17:14 Last Admin: 10/12/19 17:20 Dose: 50 mg Documented by: MAGGIE Phenobarbital (Phenobarbital) 260 mg IV NOW ONE Stop: 10/12/19 18:01 Last Admin: 10/12/19 18:37 Dose: 260 mg Documented by: MAGGIE Phenobarbital Sodium (Phenobarbital Sodium) 130 mg IV NOW ONE Stop: 10/12/19 18:48 Last Admin: 10/12/19 20:39 Dose: Not Given Documented by: PRANAY Phenobarbital Sodium (Phenobarbital Sodium) 130 mg IV NOW ONE Stop: 10/13/19 04:12 Last Admin: 10/13/19 04:29 Dose: 130 mg Documented by: EMMANUEL Vital Signs Vital signs: Vital Signs - 8 hr 10/12/19 12:56 10/12/19 15:15 10/12/19 15:16 Temperature 97.6 F Pulse Rate 134 H 126 H 125 H Respiratory Rate 22 18 18 Blood Pressure 139/89 130/83 Pulse Oximetry 97 97 96 10/12/19 15:30 10/12/19 16:00 10/12/19 16:11 Temperature Pulse Rate 128 H 122 H 120 H Respiratory Rate 17 14 20 Blood Pressure 146/91 H 139/81 139/85 Pulse Oximetry 97 96 98 10/12/19 16:15 10/12/19 16:20 10/12/19 16:30 Temperature Pulse Rate 119 H 120 H 113 H Respiratory Rate 17 22 19 Blood Pressure 131/93 H 108/61 122/71 Pulse Oximetry 97 96 10/12/19 17:00 10/12/19 17:20 10/12/19 17:30 Temperature Pulse Rate 116 H 117 H 114 H Respiratory Rate 18 18 18 Blood Pressure 124/95 H 143/91 H 149/94 H Pulse Oximetry 96 96 96 10/12/19 17:33 10/12/19 18:00 Temperature Pulse Rate 114 H 111 H Respiratory Rate 17 17 Blood Pressure 138/87 138/86 Pulse Oximetry 95 95 MDM - Arrhythmia/Palpitations Medical Records Attestation: I reviewed the patient's medical records. Lab Data Attestation: I reviewed the patient's lab results. Result diagrams: 10/13/19 05:40 10/13/19 05:40 Labs: Lab Results 10/12/19 10/12/19 10/12/19 Range/Units 13:05 13:05 13:05 WBC 5.7 (4.5-11.0) X10^3/uL RBC 4.03 L (4.5-5.9) X10^6/uL Hgb 12.6 L (13.5-17.5) g/dL Hct 38.1 L (41-53) % MCV 94.6 (80-100) fL MCH 31.2 (26-34) PG MCHC 33.0 (30-36) % RDW 16.0 H (11.6-14.8) % Plt Count 262 (150-400) X10^3/uL Neut % (Auto) 71.7 (50-75) % Lymph % (Auto) 19.6 L (25-40) % [place] % (Auto) 6.5 (3-14) % Eos % (Auto) 0.7 L (2-4) % Baso % (Auto) 1.5 (0-2) % Neut # (Auto) 4100 (3610-2293) /uL Lymph # (Auto) 1100 (9358-6604) /uL [place] # (Auto) 400 (0-900) /uL Eos # (Auto) 0 (0-450) /uL Baso # (Auto) 100 (0-100) /uL PT 11.4 (10.1-12.7) SECONDS INR 1.0 (0.9-1.3) APTT 22 L D (26.4-36.2) SECONDS Sodium 140 (137-145) mmol/L Potassium 4.8 (3.4-5.1) mmol/L Chloride 107 (98-107) mmol/L Carbon Dioxide 20 L (22-32) mmol/L BUN 13 (9-20) mg/dL Creatinine 0.84 (0.66-1.25) mg/dL Estimated GFR > 60.0 (>60) mL/min BUN/Creatinine Ratio 15.5 (6-22) Glucose 177 H (80-110) mg/dL Calcium 9.3 (8.4-10.2) mg/dL Total Bilirubin 0.7 (0.2-1.3) mg/dL AST 34 (17-59) IU/L ALT 14 (<50) IU/L Alkaline Phosphatase 52 (38-126) U/L Total Creatine Kinase 62 (55-170) U/L CK-MB (CK-2) TNP CK-MB (CK-2) Rel Index TNP Troponin I < 0.012 (0.01-0.034) ng/mL Total Protein 7.7 (6.3-8.2) g/dL Albumin 4.4 (3.5-5.0) g/dL Globulin 3.3 (1.7-4.1) g/dL Albumin/Globulin Ratio 1.3 (1.0-2.8) Lipase 50 (23-300) U/L Imaging Data Chest x-ray: Radiologist's Impresson: IMPRESSION: No acute cardiopulmonary findings. Dictated by: Baylee Lynch M.D. on 10/12/2019 at 13:00 [facility] Narrative Medical decision making narrative: 3:11 Dr Layne, personal financial representative PCP to review PMH more completely. Last office visit 09/26/19 and was in atrial fibrillation at that time. Prescribed 50 mg metoprolol but was not taking this, rate was around 100. Discussion regarding risk reduction. If patient is going to continue drinking and not taking medications as he has demonstrated he is going to choose to do there is little value to hospital admission with complicated withdrawal management. Will try IV metoprolol followed by oral metoprolol and discuss options with he and his . In discussion with patient and his , they wanted to try the IV metoprolol followed by oral metoprolol with probable discharge home. Will go ahead administer medications in will discuss yet again. At this point patient is hemodynamically stable not showing signs of acute coronary syndrome or acute congestive heart failure. Will ask for records from [facility] with his recent admission to see if we can get documentation of the recent echocardiogram. Records from his stay at [facility] are reviewed He did have atrial fibrillation and elevated blood pressure throughout the entire stay that was well rate controlled on 50 mg of metoprolol. He was not given any anticoagulant based on his high risk for falls and secondary complications The he did have a transesophageal echo on 07/04/2019 at [facility] that showed: an ejection fraction at 35%, normal left ventricular size, normal right ventricular size with mildly reduced RV function, no aortic insufficiency, trileaflet and sclerotic aortic valve thickened mitral leaflets with normal valve excursion and mild mitral regurgitation Moderate left atrial enlargement No pericardial effusion Atrial fibrillation 515 chayo discussion with patient and his . He has responded moderately well to the IV metoprolol and oral metoprolol will repeat doses of both. Heart rates in the 115 range at this point. He showing no signs of acute alcohol withdrawal at this time. Agrees that he does want to stop drinking he does want to follow through with an inpatient program and he is willing to take metoprolol daily. To that and he will need hospitalization to monitor the atrial fibrillation with rapid ventricular response and alcohol withdrawal complications as he had such as severe course with his last with withdrawal admission. He had his are interested in speaking with social work and looking into inpatient options with [facility] being his top choice Care is reviewed with Dr. Ambrose, patient will be admitted to the ICU for atrial fibrillation with rapid ventricular response and alcohol use disorder with alcohol withdrawal and a history of severe withdrawal symptoms and seizures. Will load with IV phenobarbital with 260 mg and then continue 60 mg 2 to 3 times a day for alcohol withdrawal seizures Discharge Plan Departure Patient Disposition: Admitted As Inpatient Clinical Impression: Atrial fibrillation with rapid ventricular response Alcohol withdrawal syndrome Qualifiers: Complication of substance-induced condition: uncomplicated Qualified Code(s): F10.230 - Alcohol dependence with withdrawal, uncomplicated Discharge Date/Time: 10/12/19 19:32 Admit Date/Time: 10/12/19 18:19 Admit Provider: Lc Ambrose
[2019-10-12] MEDS: APIXABAN 5 MG TABLET PO (14:30)
--- NOTE | 2019-10-12 14:34 | PC.NURSE ---
at bedside reviewing poc with pt pt medicated as per bra
[2019-10-12] MEDS: METOPROLOL IR 25 MG TABLET 50 MG PO ×2 (16:03→17:20)
[2019-10-12] MEDS: METOPROLOL TARTRATE 5 MG/5 ML INJ IV ×2 (16:04→17:21)
--- NOTE | 2019-10-12 16:23 | PC.NURSE ---
pt medicated as per mdo pt on cont cardiac monitoring
[2019-10-12] MEDS: LORazepam 2 MG/ML INJ IV ×2 (17:58→20:33)
[2019-10-12] MEDS: PHENobarbital 65 MG/ML VIAL 260 MG IV (18:37)
--- NOTE | 2019-10-12 18:55 | P.HP_ITS ---
History of Present Illness History of Present Illness Date Patient Seen: 10/12/19 Time Patient Seen: 18:55 Date of Onset of Symptoms: 10/12/19 Chief complaint: Heart Palpatations Narrative: Patient is a 74-year-old white male patient of Dr. Reyna and Dr. Navarro 1 cross covering for period comes in today with increased heart rate. Noticed it while he was reading the paper this morning. Did not have any chest pain or shortness of breath. He thinks he has not been in atrial fibrillation before but his said that he had been persistently and and on review of the chart he was in atrial fibrillation with controlled rate last time he was in the clinic. That was in early September. Patient apparently has just returned home after a lengthy inpatient treatment for recovery from his last hospitalization. He was hospitalized here on 07/02/2019 for not feeling well and heart issues. He was approximately 40 hours into his stay when he started seizing from alcohol withdrawal period was an extensive mobilization and was transferred to [facility] intubated and on heavy medication to stop his seizures. Apparently he had of ivan course home and at some point had a PEG tube placed. He then went to a rehab schedule or not for alcohol but for his physical issues. During that time he had an echo which showed a 30% ejection fraction done. He has since he was discharged from the rehab center apparently doing well at that point not taking his blood pressure medicine nor his Eliquis to period he resumed drinking although not to the extent he was prior to his last hospitalization is been doing so for the last 20 some days. His last drink was yesterday. He has had no headaches. No visual symptoms no nausea or vomiting. Is feeling pretty well today. He has had no chest pain. He has had a little bit of shortness of breath. No orthopnea no PND no definitive weight gain. No other changes. Apparently is been thinking about divorce and due to that he is considering going to alcohol treatment. He has never done that in the past. He has never really wanted to quit. He states that he has never been to AA but has heard about it. Otherwise he is currently feeling slightly better. He was given beta-blockers IV and p.o. here in the emergency room. He has had no other changes. Apparently had his PEG tube pulled 1 week ago. Has some mild pain but no other changes. Has been having normal bowel movements. Normal urine. No fevers no chills no cough. Has not been sick in any other way. 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 Mom of lung cancer Sister with complication of rheumatoid arthritis Two brothers who are healthy Three other sisters are healthy Patient History Medical History Alcohol abuse (Acute) Atrial fibrillation (Acute) Gout (Acute) HTN (hypertension) (Acute) Family & Social History Social History: household members spouse Safety & Behavioral: Feels Safe in Current Yes Environment Been Physically Hurt or No Threatened By a Person Tobacco & Substance use: Tobacco type cigarettes Smoking Status Former smoker alcohol intake current alcohol intake frequency 0-2 drinks per day Substance Use Type does not use Meds Home Medications and Allergies Home Medications Medication Instructions Recorded Confirmed Type No Known Home Medications 07/02/19 10/03/19 History Allergies Allergy/AdvReac Type Severity Reaction Status Date / Time amoxicillin [AMOXICILLIN] Allergy Severe SWOLLEN JAW Verified 10/12/19 13:00 clindamycin [CLINDAMYCIN] AdvReac Severe C-DIFF Verified 10/12/19 13:00 Review of Systems Review of Systems ROS: Yes All systems reviewed with the patient and are negative except as otherwise documented Exam Vital Signs (past 8 hours): - 10/12/19 12:56 10/12/19 15:16 Temperature 97.6 F Pulse Rate 134 H 125 H Respiratory Rate 22 20 Blood Pressure 139/89 130/83 Pulse Oximetry 97 95 Oxygen Delivery Method Room Air Narrative Exam Narrative: Alert elderly male non shaking in no other changes. Pupils are equal response to light. Eyes otherwise are unremarkable. Mucous membranes moist. Neck supple without adenopathy. No JVD no bruits. Lungs actually quite clear. Heart is irregular with heart rate in the 130s during my exam. No murmurs clicks rubs or gallops. Abdomen is soft positive bowel sound does have some mild tenderness in the area of the PEG tube there is no erythema and no swelling no discharge. Extremities without cyanosis clubbing edema. Neurologic exam shows cranial nerves 2-12 are intact motor is 5/5 and symmetric. He has no tremor. Alert oriented. Psychologically slightly subdued but otherwise unremarkable Objective Labs Result Diagrams: 10/12/19 13:05 10/12/19 13:05 Labs: Laboratory Results - last 24 hr 10/12/19 10/12/19 10/12/19 13:05 13:05 13:05 WBC 5.7 RBC 4.03 L Hgb 12.6 L Hct 38.1 L MCV 94.6 MCH 31.2 MCHC 33.0 RDW 16.0 H Plt Count 262 Neut % (Auto) 71.7 Lymph % (Auto) 19.6 L Davison % (Auto) 6.5 Eos % (Auto) 0.7 L Baso % (Auto) 1.5 Neut # (Auto) 4100 Lymph # (Auto) 1100 [place]ison # (Auto) 400 Eos # (Auto) 0 Baso # (Auto) 100 PT 11.4 INR 1.0 APTT 22 L D Sodium 140 Potassium 4.8 Chloride 107 Carbon Dioxide 20 L BUN 13 Creatinine 0.84 Estimated GFR > 60.0 BUN/Creatinine Ratio 15.5 Glucose 177 H Calcium 9.3 Total Bilirubin 0.7 AST 34 ALT 14 Alkaline Phosphatase 52 Total Creatine Kinase 62 CK-MB (CK-2) TNP CK-MB (CK-2) Rel Index TNP Troponin I < 0.012 Total Protein 7.7 Albumin 4.4 Globulin 3.3 Albumin/Globulin Ratio 1.3 Lipase 50 Assessment & Plan Assessment & Plan narrative: Atrial fibrillation with RVR. Patient main issue is alcohol poisoning. Basically of his heart. + is noncompliance with his medications. At this point we had a long discussion about this and he understands that he is at high risk with unless he stops drinking. Certainly in [place] medicines. At this point heart rate has come down he has got IV meto prolol and p.o. metoprolol and will continue at this point we may need to start Cardizem IV tonight but will see how he does. Certainly be blood pressures tolerating it at this time. Certainly high risk if we worked to admit him secondary to his lack of compliance. Return very likely. No evidence of ischemic disease at this time. Will follow. Left heart congestive heart failure. EF 30% at last check. It unsure where it is at this time. We discussed with patient that this is probably alcohol related potentially resolve a bowl if he recall quits drinking but I think at this point we need to check an echo and make sure it has not worsened. Were going to be giving him gentle fluid hydration and will have to watch how he responds. May need Lasix but will see what the next 12 hours does. History of alcohol addiction with severe withdrawal last admission. Unclear whether this is going to follow the same past. Certainly a high risk for that. We started phenobarbital in the emergency room. I will continue p.o. dose tomorrow once we decide on the appropriate dose that is available at this point he will get another dose of IV phenobarbital in on 8 hours. Will discuss with pharmacist in a.m.. Will have him on CIWA protocol with Ativan available. Will watch closely. Will transfer certainly if there is any concern at this point. With a long discussion about treatment options. We discussed which is probably the result of his alcohol abuse affect continues. We also discussed the possibility of to treatment and the long fight that will be but worth the effort. He will think about it. I think at this point he would like to try treatment. Will discuss with home health care social worker tomorrow. Discussed with she understands. Questions answered. No other changes. Hypertension. Stable at this time. BPH. Will watch and see how things go. History of PEG tube. Seems to be stable will watch for signs of infection but nothing definitive at this time. Code status full. GI prophylaxis. Will start pantoprazole. I think he is probably high risk with his drinking. DVT prophylaxis. Continue his Eliquis. Disposition. Unclear at this point. Hopefully we will not get into the withdrawal issues that we had previously but we have to see how things go. H opefully we can get something set up as an in patient treatment center once he stabilized. Probably will be clear in till 3-4 days.
--- NOTE | 2019-10-12 19:17 | PC.NURSE ---
phenobarbital gtt ended 68.8ml infused at time of ICU admission.
[2019-10-12] MEDS: MAGNESIUM SULFATE 2 GM, FOLIC ACID 1 MG, THIAMINE 100 MG, MULTIVITAMIN 10 ML in SODIUM ... IV (19:30)
[2019-10-12 21:12] LABS: COVID19 -Nasal RAPID Negative (Negative)
[2019-10-13] VITALS (23 sets, daily range): BP systolic 108–140; BP diastolic 73–103; PULSE 67–105; RESP 12–18; TEMP 36.1–36.6; O2SAT 94–99
[2019-10-13] MEDS: PHENobarbital 130 MG/ML VIAL IV (04:29)
[2019-10-13 06:01] LABS: Add Manual Diff / Slide Review NO; Basophils Absolute Auto 100 /uL (0-100); Basophils Percent Auto 1.2 % (0-2); Eosinophils Absolute Auto 200 /uL (0-450); Eosinophils Percent Auto 3.1 % (2-4); Hematocrit 33.5 % (41-53); Lymphocytes Absolute Auto 1200 /uL (1100-4500); Lymphocytes Percent Auto 18.9 % (25-40); Mean Corpuscular HGB Conc 32.9 % (30-36); Mean Corpuscular Volume 94.4 fL (80-100); Monocytes Absolute Auto 600 /uL (0-900); Monocytes Percent Auto 9.8 % (3-14); Neutrophils Absolute Auto 4300 /uL (1500-7000); Platelet Count 230 X10^3/uL (150-400); Red Blood Cell Count 3.55 X10^6/uL (4.5-5.9); Red Cell Distribution Width 15.5 % (11.6-14.8); White Blood Cell Count 6.5 X10^3/uL (4.5-11.0)
[2019-10-13 06:06] LABS: Alanine Aminotransferase 10 IU/L (<50); Albumin 3.3 g/dL (3.5-5.0); Albumin Globulin Ratio 1.1 (1.0-2.8); Alkaline Phosphatase 55 U/L (38-126); Aspartate Aminotransferase 27 IU/L (17-59); BUN Creatinine Ratio 14.5 (6-22); Bilirubin Total 1.1 mg/dL (0.2-1.3); Blood Urea Nitrogen 11 mg/dL (9-20); Calcium 8.8 mg/dL (8.4-10.2); Carbon Dioxide 25 mmol/L (22-32); Chloride 108 mmol/L (98-107); Estimated Glomerular Filt Rate > 60.0 mL/min (>60); Globulin 2.9 g/dL (1.7-4.1); Glucose 90 mg/dL (80-110); HEMOLYSIS < 15 (0-50); Magnesium 2.2 mg/dL (1.6-2.3); Potassium 3.9 mmol/L (3.4-5.1); Sodium 136 mmol/L (137-145); Total Protein 6.2 g/dL (6.3-8.2)
--- NOTE | 2019-10-13 06:22 | PC.NURSE ---
Director Biostatistics Note-Patient remains in A-fib CVR, rate mostly <100, VSS, SpO2 >94% on 2L NC, LS CTA. Patient is drowsy, oriented x4, CIWA = 3. Banana bag infused, IV phenobarbitol 130mg x1 given as scheduled at 0400, seizure pads on rails, no seizure activity.
[2019-10-13] MEDS: APIXABAN 5 MG TABLET PO (08:34)
[2019-10-13] MEDS: FOLIC ACID 1 MG TABLET PO (08:34)
[2019-10-13] MEDS: METOPROLOL IR 50 MG TABLET PO (08:34)
[2019-10-13] MEDS: THIAMINE 100 MG TABLET PO (08:34)
[2019-10-13] MEDS: MULTIVITAMIN 1 TABLET 1 TAB PO (08:34)
[2019-10-13] MEDS: PANTOPRAZOLE 40 MG TABLET PO (08:36)
--- NOTE | 2019-10-13 12:01 | PC.NURSE ---
Addendum entered by Tammy Rashid R.N. 10/13/19 13:11: pt discharged to [facility] - REPORT GIVEN EARLIER TO ACCEPTING RN AND TO TRANSPORT- Original Note: PT DROWSY BUT ORIENTED THIS AM AND PERKED UP CONSIDERABLY FOLLOWING BREAKFAST AND DRINKING H20- LUNGS CLEAR BILATERALLY, CIWA SCORE 4 PLANNING PO LORAZ PER CIWA PROTOCOL AND PHENOBARBITOL PO- NO EVIDENCE OF SEIZURE ACTIVITY SLIGHT TREMORS- SBA WHEN UP SALINE LOCK X 2- UPDATE TO RE: ACCEPTANCE AT [facility] THIS DATE WITH PLANS THEN TO TRANSITION INTO ETOH REHAB PROGRAM- PREPPING TO DISCHARGE TO THAT FACILITY WITH TO TRANSPORT. CONTINUES IN AFIB ( HIS NORMAL RHYTHYM) RATE CONTROLLED ON NORMAL PO METOPROLOL DOSE AND PO ELIQUIS GIVEN WELL.
--- NOTE | 2019-10-13 12:11 | PM.DS.1 ---
History of Present Illness History of Present Illness Chief complaint: Heart Palpatations Narrative: Patient is a 74-year-old white male patient of Dr. Reyna and Dr. Navarro 1 cross covering for period comes in today with increased heart rate. Noticed it while he was reading the paper this morning. Did not have any chest pain or shortness of breath. He thinks he has not been in atrial fibrillation before but his said that he had been persistently and and on review of the chart he was in atrial fibrillation with controlled rate last time he was in the clinic. That was in early September. Patient apparently has just returned home after a lengthy inpatient treatment for recovery from his last hospitalization. He was hospitalized here on 07/02/2019 for not feeling well and heart issues. He was approximately 40 hours into his stay when he started seizing from alcohol withdrawal period was an extensive mobilization and was transferred to [facility] intubated and on heavy medication to stop his seizures. Apparently he had of ivan course home and at some point had a PEG tube placed. He then went to a rehab schedule or not for alcohol but for his physical issues. During that time he had an echo which showed a 30% ejection fraction done. He has since he was discharged from the rehab center apparently doing well at that point not taking his blood pressure medicine nor his Eliquis to period he resumed drinking although not to the extent he was prior to his last hospitalization is been doing so for the last 20 some days. His last drink was yesterday. He has had no headaches. No visual symptoms no nausea or vomiting. Is feeling pretty well today. He has had no chest pain. He has had a little bit of shortness of breath. No orthopnea no PND no definitive weight gain. No other changes. Apparently is been thinking about divorce and due to that he is considering going to alcohol treatment. He has never done that in the past. He has never really wanted to quit. He states that he has never been to AA but has heard about it. Otherwise he is currently feeling slightly better. He was given beta-blockers IV and p.o. here in the emergency room. He has had no other changes. Apparently had his PEG tube pulled 1 week ago. Has some mild pain but no other changes. Has been having normal bowel movements. Normal urine. No fevers no chills no cough. Has not been sick in any other way. 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 Mom of lung cancer Sister with complication of rheumatoid arthritis Two brothers who are healthy Three other sisters are healthy Discharge Providers Provider Date of admission: 10/12/19 18:19 Discharge Date: 10/13/19 Primary care physician: Cris Reyna MD Consults: 10/12/19 18:44 Consult to Dietitian, Adult Routine Comment: Reason For Exam: etoh Discharge provider: Lc Ambrose MD Summary Hospital Course Discharge Diagnosis: Atrial fibrillation with RVR Left heart congestive heart failure History of alcohol addiction with severe withdrawal history Hypertension BPH Hospital Course: Atrial fibrillation with RVR. Patient was admitted to the hospital after being given 100 mg of p.o. metoprolol and 5 mg of IV in the emergency room his heart rate was down. Blood pressure tolerated well. He had no chest pain. No other changes. He was restarted on his usual dose of medication which she tolerated well which was 50 mg of metoprolol and his heart rates were in the 80s. He was having no chest pain and felt as if he was back to his normal self. He had no other complaints or problems. Left heart failure. Patient with history of congestive heart failure. While he was in our hospital he had no evidence of any congestive heart failure or cardiac abnormality. He was not given any treatment. Due to the fact that his last echo showed 30% EF an echo was ordered but due to the fact that he was discharged prior to obtaining that it will be followed up as an outpatient. It was not deemed emergent. Does not need Lasix at this time. History of alcohol addiction with severe withdrawal and seizure activity last hospitalization. We have had long discussion with patient about addiction. Desire for discontinuation. Patient is in a position where he would like to quit. Apparently is chosen to divorce him if he restarts drinking. He is not sure if that is what he wants to do but feels like this is the most motivated he ever been. Does want to go to inpatient treatment. Patient was began on phenobarbital and was loaded in the emergency room had 1 more dose IV at 4 this morning. Ricks Ativan originally but actually has been pretty clear. Having not a lot of symptoms at this time. We of set up detox at [place] with hope that they will set up inpatient treatment after that. Patient agrees to this plan. agrees with plan. Discussion and will be discharged and sent directly there. Status at Discharge Cognitive/behavioral status at discharge: oriented Exam Vital Signs (past 8 hours): - 10/13/19 04:30 10/13/19 05:00 10/13/19 05:30 Temperature Pulse Rate 82 78 82 Respiratory Rate 14 14 13 Blood Pressure 125/92 H Pulse Oximetry 96 97 10/13/19 06:00 10/13/19 06:30 10/13/19 07:47 Temperature Pulse Rate 83 87 70 Respiratory Rate 13 16 18 Blood Pressure 135/90 Pulse Oximetry 96 97 96 10/13/19 08:00 10/13/19 08:26 Temperature 97.2 F L Pulse Rate 79 77 Respiratory Rate 18 Blood Pressure 135/89 Pulse Oximetry 94 Oxygen Delivery Method Room Air Oxygen Flow Rate 0 Narrative Exam Narrative: Patient alert oriented interactive this morning mildly fatigued. HEENT exam pupils are equal response light. Mucous membranes moist. Neck supple without adenopathy. Lungs are clear. Heart controlled rate with irregular rhythm. No murmurs clicks rubs or gallops. Abdomen is soft positive bowel sounds nontender. Extremities without cyanosis clubbing edema. Neurologic exam is cranial nerves are normal. Motor is 5/5 reflexes are normal he has no abnormality. Psychologically mildly subdued but otherwise fine. Objective Labs Result Diagrams: 10/13/19 05:40 10/13/19 05:40 Labs: Laboratory Results - last 24 hr 10/12/19 10/12/19 10/12/19 13:05 13:05 13:05 WBC 5.7 RBC 4.03 L Hgb 12.6 L Hct 38.1 L MCV 94.6 MCH 31.2 MCHC 33.0 RDW 16.0 H Plt Count 262 Neut % (Auto) 71.7 Lymph % (Auto) 19.6 L [place] % (Auto) 6.5 Eos % (Auto) 0.7 L Baso % (Auto) 1.5 Neut # (Auto) 4100 Lymph # (Auto) 1100 [place] # (Auto) 400 Eos # (Auto) 0 Baso # (Auto) 100 PT 11.4 INR 1.0 APTT 22 L D Sodium 140 Potassium 4.8 Chloride 107 Carbon Dioxide 20 L BUN 13 Creatinine 0.84 Estimated GFR > 60.0 BUN/Creatinine Ratio 15.5 Glucose 177 H Calcium 9.3 Magnesium Total Bilirubin 0.7 AST 34 ALT 14 Alkaline Phosphatase 52 Total Creatine Kinase 62 CK-MB (CK-2) TNP CK-MB (CK-2) Rel Index TNP Troponin I < 0.012 Total Protein 7.7 Albumin 4.4 Globulin 3.3 Albumin/Globulin Ratio 1.3 Lipase 50 Nasal Screen MRSA (PCR) COVID-19 PCR 10/12/19 10/12/19 10/13/19 19:30 19:30 05:40 WBC 6.5 RBC 3.55 L Hgb 11.0 L Hct 33.5 L MCV 94.4 MCH 31.0 MCHC 32.9 RDW 15.5 H Plt Count 230 Neut % (Auto) 67.0 Lymph % (Auto) 18.9 L [place] % (Auto) 9.8 Eos % (Auto) 3.1 Baso % (Auto) 1.2 Neut # (Auto) 4300 Lymph # (Auto) 1200 [place] # (Auto) 600 Eos # (Auto) 200 Baso # (Auto) 100 PT INR APTT Sodium Potassium Chloride Carbon Dioxide BUN Creatinine Estimated GFR BUN/Creatinine Ratio Glucose Calcium Magnesium Total Bilirubin AST ALT Alkaline Phosphatase Total Creatine Kinase CK-MB (CK-2) CK-MB (CK-2) Rel Index Troponin I Total Protein Albumin Globulin Albumin/Globulin Ratio Lipase Nasal Screen MRSA (PCR) Positive for mrsa H COVID- PCR Negative 10/13/19 05:40 WBC RBC Hgb Hct MCV MCH MCHC RDW Plt Count Neut % (Auto) Lymph % (Auto) [place] % (Auto) Eos % (Auto) Baso % (Auto) Neut # (Auto) Lymph # (Auto) [place] # (Auto) Eos # (Auto) Baso # (Auto) PT INR APTT Sodium 136 L Potassium 3.9 Chloride 108 H Carbon Dioxide 25 BUN 11 Creatinine 0.76 Estimated GFR > 60.0 BUN/Creatinine Ratio 14.5 Glucose 90 Calcium 8.8 Magnesium 2.2 Total Bilirubin 1.1 AST 27 ALT 10 Alkaline Phosphatase 55 Total Creatine Kinase CK-MB (CK-2) CK-MB (CK-2) Rel Index Troponin I Total Protein 6.2 L Albumin 3.3 L Globulin 2.9 Albumin/Globulin Ratio 1.1 Lipase Nasal Screen MRSA (PCR) COVID-19 PCR Discharge Assessment & Plan Assessment and Plan Assessment: Heart rate is stabilized and clinically doing well physically. With history of severe withdrawal despite his phenobarbital have set up for discharge to detox center along with hopefully inpatient treatment. Patient understands and agrees will follow-up with his usual doctor after he returns we did discuss that if he is interested in getting connected with alcoholics anonymous he can contact us and we will set that up 1 hour spent in setting up discharge and discussing with patient Discharge Plan Discharge Plan Patient Disposition: Released, Other Other facility: will be going to medical detox in [facility]. Discharge comment: go directly to detox center Discharge orders & Medications Discharge Orders: Discharge (Order); Ordered 10/13/19 Ordered By: Lc Ambrose Prescriptions: No Action No Known Home Medications RF: 0 Follow up/Referrals: Cris Reyna MD [Primary Care Provider] - As previously scheduled (after home from treatment) Discharge Health Status Multidrug resistant organism: MRSA Precautions: [facility] Diet/Activity/Treatments Diet: Diet as Tolerated Food texture: Regular Activity: as tolerated Skin/Wound/Dressing Care Report to your healthcare provider any signs of infection, such as:: chills, fever and night sweats Special Rehabilitation Services Reason for rehabilitation: Other Restrictions to mobility: none Discharge Data Primary Care Provider: Cris Reyna
--- NOTE | 2019-10-13 12:34 | CM.DANOTE ---
DCP: Case received, EMR reviewed and met with patient. Met with , Marya, as well. Introduced self and role. Obtained some information from patient regarding his baseline activity level and health information prior to hospitalization. With patient's permission, called earlier, and obtained some history as well. DCP assessment completed with information currently available. Patient is a 74 year old male who admitted yesterday afternoon to the care of the hospitalist team. PCP: Dr. Reyna. Payer: confirmed: Medicare/ for Life. Patient came to the hospital via private vehicle secondary to heart palpitations. Patient has history of a-fib, and according to the notes, had not been compliant with taking his medication. Patient also has history of alcohol abuse. Patient was recently discharged from an acute inpatient rehab in [place], but not for alcohol rehab. Patient had been recently hospitalized in June for heart issues as well. He had been having seizures from alcohol withdrawal at that time, and was sent over to [facility] intubated. He then had a PEG tube which was recently discontinued. , Marya, has indicated that she wants to file for divorce, since he has not wanted to get treatment. Stated that he drinks over 3 beers a day, along with shots of bourbon. confirmed that patient is not driving at this time, and has to hide his keys. Patient is independent in the home setting, but compliance with medications and drinking are the challenges. At this time, will attempt to get patient into inpatient detox, secondary to his history of seizures. is hopeful he can go into inpatient rehab after medical detox. JEROME Maher assist this complex case manager. She was able to reach [place] inpatient re[facility] for medical detox. They do have availabilities. This complex case manager had previously attempted [facility], but no availabilities for today. Attempted [facility] as well, but this was more outpatient, and do to patient's history, he needs inpatient detox. Spoke to , Marya. She stated that she can drive him down to [place]. Gave her address and phone number to call when she arrives, she can call nurses station. Nurse to nurse was already conducted between ICU nurseTammy, and nurse at [facility]. Faxed over DC summary to [facility]. Will call them at: [phone] when he leaves hospital, for he is discharging today. Dr. Ambrose is here and updated on plan. P: Patient is to be discharged today to [place] inpatient rehab for medical detox, and is supposed to transport. Dahiana Greer RN/Field Consultant
== END 2019-10-13 13:12 | disposition home or self-care (01) ==
LOC: ED 13:45 → ICU 18:54 → AC 10-14 07:25 → ICU 10-14 07:25
PROVIDERS: Admitting Provider Family Medicine; Emergency Provider Emergency Medicine; PCP Student in an Organized Health Care Education/Training Program; Referring Provider Emergency Medicine; Visit Provider Family Medicine
DX: I48.0 Paroxysmal atrial fibrillation (principal); R00.2 Palpitations; F10.20 Alcohol dependence, uncomplicated; I10 Essential (primary) hypertension; E78.5 Hyperlipidemia, unspecified; I50.9 Heart failure, unspecified; N40.0 Benign prostatic hyperplasia without lower urinary tract symptoms; Z79.01 Long term (current) use of anticoagulants; Z11.59 Encounter for screening for other viral diseases
CPT/HCPCS: 36415; 71045; 80053; 82550; 83690; 83735; 84484; 85025; 85610; 85730; 87635; 87797; 93005; 96361; 96374; 96375; 96376; 99284; G0378; J2060; J2560; J3475

== ENCOUNTER 2019-11-15 11:08 | Emergency (ER) | payer MEDICARE, OTHER, SELFPAY ==
[2019-07-03 21:02] VITALS: PULSE 98; RESP 16; O2SAT 98
[2019-10-12 19:18] VITALS: BMI 24.3
[2019-11-15] VITALS (16 sets, daily range): BP systolic 107–168; BP diastolic 83–103; PULSE 98–111; RESP 14–22; TEMP 36.4; O2SAT 93–97; BMI 24.3
--- NOTE | 2019-11-15 11:36 | ED.ARRPALP ---
HPI - Arrhythmia/Palpitations General Chief Complaint: Arrhythmia/Palpitations Stated Complaint: heart palpitations for 24 hrs Time Seen by Provider: 11/15/19 11:19 Source: patient Mode of arrival: Ambulatory Limitations: no limitations History of Present Illness HPI narrative: 74-year-old gentleman presents with complaints of his heart going fast. He was seen for this on October 11 and admitted at that time. He has a history of atrial fibrillation for which he refuses to take metoprolol or anticoagulants. He has a long history of alcohol abuse. He was seen and admitted for alcohol abuse in mid June had seizures, multiple complications, prolonged course, transfer to [facility] with 3 months of inpatient medical rehabilitation. After discharge she began drinking immediately. Drink heavily and did not take any of his rate medication until he was seen on October 11. Admitted again to help with both alcohol withdrawal and rate control his atrial fibrillation. On medications he does quite well. From [facility] he the he was discharged to [place] outpatient detox and from there was told that he needed outpatient counseling 3 days a week and no inpatient treatment. He has been drinking heavily since that time and continues to deteriorate. His of 36 years has started divorce proceedings because of his continued decline in to his drinking. Today he noted that his heart rate was going fast and requested to come to the emergency department. He complains of no chest pain, shortness of breath, abdominal pain, fevers, vomiting, diarrhea, lower extremity edema, orthopnea and also has no cough. Related Data Home Medications Medication Instructions Recorded Confirmed No Known Home Medications 07/02/19 10/12/19 Allergies Allergy/AdvReac Type Severity Reaction Status Date / Time amoxicillin [AMOXICILLIN] Allergy Severe SWOLLEN JAW Verified 11/15/19 11:21 clindamycin [CLINDAMYCIN] AdvReac Severe C-DIFF Verified 11/15/19 11:21 Review of Systems Review of Systems Narrative: Remainder of review of systems including constitutional, ENT, cardiovascular, respiratory, GI, , musculoskeletal, skin, neurologic and psychiatric systems reviewed and are unremarkable except as noted in HPI. Patient History Medical History Alcohol abuse (Acute) Atrial fibrillation (Acute) Gout (Acute) HTN (hypertension) (Acute) Social History marital status: household members: spouse occupational status: previously employed Smoking Status: Former smoker alcohol intake: current substance use type: does not use Smoking Status: Former smoker alcohol intake frequency: 3 or more drinks per day Substance Use Type: does not use Exam Narrative Exam Narrative: General: Healthy appearing, in no acute distress. Flat affect with confabulation. HEENT: Moist mucous membranes, normal sclera with reactive pupils, Neck: No JVD, supple Respiratory: Lungs are clear to auscultation, no wheezing no rales no rhonchi. Full and symmetrical air movement Cardiac: Irregularly irregular in the 140 range, no murmurs no bruits Abdomen: Soft nontender good bowel tones, no flank pain Skin: Warm and dry, no rashes Neurologic: Mild bilateral tremor, Grossly neurologically intact with no obvious asymmetries or abnormalities, exhibits memory loss Extremities: No trauma, well perfused Psych: Little insight into events. He does not remember that he has chronic atrial fibrillation Initial Vital Signs Initial Vital Signs: Vital Signs Temperature 97.6 F 11/15/19 11:15 Pulse Rate 111 H 11/15/19 11:15 Respiratory Rate 15 11/15/19 11:15 Blood Pressure 156/88 H 11/15/19 11:15 Pulse Oximetry 97 11/15/19 11:15 Course Orders Ordered: ED Orders 11/15/19 11:19 EKG-12 Lead Stat 11/15/19 11:39 XR chest 1V Stat 11/15/19 11:45 Complete Blood Count AUTO DIFF Stat Comprehensive Metabolic Panel Stat Ethanol (ETOH) Stat Troponin I Stat 11/15/19 12:41 Consult to [facility] - Salary And Wage Administrator Stat Discontinued Medications Lorazepam (Ativan) 2 mg PO NOW ONE Stop: 11/15/19 15:04 Last Admin: 11/15/19 15:13 Dose: 2 mg Documented by: MAURICIO Metoprolol Tartrate (Lopressor) 5 mg IV Q5M [facility] Stop: 11/15/19 12:56 Last Admin: 11/15/19 13:14 Dose: 5 mg Documented by: Admin: 11/15/19 13:03 Dose: 5 mg Documented by: Admin: 11/15/19 12:48 Dose: 5 mg Documented by: MAURICIO Metoprolol Tartrate (Lopressor) 50 mg PO NOW ONE Stop: 11/15/19 12:42 Last Admin: 11/15/19 12:48 Dose: 50 mg Documented by: MAURICIO Vital Signs Vital signs: Vital Signs - 8 hr 11/15/19 11:15 11/15/19 11:18 11/15/19 11:30 Temperature 97.6 F Pulse Rate 111 H Respiratory Rate 15 Blood Pressure 156/88 H 156/88 H 154/90 H Pulse Oximetry 97 11/15/19 12:00 11/15/19 12:30 11/15/19 13:00 Temperature Pulse Rate 106 H 106 H 105 H Respiratory Rate 16 16 16 Blood Pressure 146/90 H 145/97 H 155/89 H Pulse Oximetry 96 96 94 11/15/19 13:30 11/15/19 14:00 11/15/19 14:40 Temperature Pulse Rate 102 H 100 H 104 H Respiratory Rate 16 21 Blood Pressure 139/92 H 143/103 H Pulse Oximetry 93 94 96 11/15/19 14:57 11/15/19 15:00 Temperature Pulse Rate 105 H 105 H Respiratory Rate 21 19 Blood Pressure 128/90 126/92 H Pulse Oximetry 96 96 MDM - Arrhythmia/Palpitations Medical Records Attestation: I reviewed the patient's medical records. Lab Data Attestation: I reviewed the patient's lab results. Result diagrams: 11/15/19 11:45 11/15/19 11:45 Labs: Lab Results 11/15/19 11/15/19 Range/Units 11:45 11:45 WBC 4.1 L (4.5-11.0) X10^3/uL RBC 3.44 L (4.5-5.9) X10^6/uL Hgb 11.0 L (13.5-17.5) g/dL Hct 33.6 L (41-53) % MCV 97.5 (80-100) fL MCH 32.1 (26-34) PG MCHC 32.9 (30-36) % RDW 17.6 H (11.6-14.8) % Plt Count 120 L (150-400) X10^3/uL Neut % (Auto) 65.9 (50-75) % Lymph % (Auto) 19.3 L (25-40) % [place] % (Auto) 12.3 (3-14) % Eos % (Auto) 0.8 L (2-4) % Baso % (Auto) 1.7 (0-2) % Neut # (Auto) 2700 (4080-2928) /uL Lymph # (Auto) 800 L (8100-0972) /uL [place] # (Auto) 500 (0-900) /uL Eos # (Auto) 0 (0-450) /uL Baso # (Auto) 100 (0-100) /uL Sodium 137 (137-145) mmol/L Potassium 4.2 (3.4-5.1) mmol/L Chloride 103 (98-107) mmol/L Carbon Dioxide 24 (22-32) mmol/L BUN 13 (9-20) mg/dL Creatinine 0.78 (0.66-1.25) mg/dL Estimated GFR > 60.0 (>60) mL/min BUN/Creatinine Ratio 16.7 (6-22) Glucose 99 (80-110) mg/dL Calcium 8.8 (8.4-10.2) mg/dL Total Bilirubin 0.8 (0.2-1.3) mg/dL AST 65 H (17-59) IU/L ALT 32 (<50) IU/L Alkaline Phosphatase 77 (38-126) U/L Troponin I < 0.012 (0.01-0.034) ng/mL Total Protein 7.0 (6.3-8.2) g/dL Albumin 4.2 (3.5-5.0) g/dL Globulin 2.8 (1.7-4.1) g/dL Albumin/Globulin Ratio 1.5 (1.0-2.8) Ethyl Alcohol 97 H ( - 10) mg/dL [facility] Narrative Medical decision making narrative: 74-year-old gentleman with chronic atrial fibrillation that is well controlled on metoprolol 50 mg, when he takes it. He currently can sense his heart rate is going fast but it is not painful. He does not have clinical signs and symptoms of acute heart failure at this time. When asked if he does want to stop drinking he is quite passive but does answer yes. He states that he has not had anything to drink today(which his confirms is not true) and he would take medications as prescribed despite recurrent behavioral changes showing that he will not do so as long as he is drinking. With a total of 15 mg of IV metoprolol followed with oral metoprolol his heart rate is at 102. Labs are reassuring no evidence of acute coronary syndrome or congestive heart failure at this time. Will ask our marriage and family social worker to chat with Mr. Porter and his and see if we can offer any additional structured inpatient treatment for his alcohol use disorder so that he can focus on getting back to truly healthy and taking medications as prescribed for his chronic atrial fibrillation. 300 CIWA =7, increasing agitation. 2 mg of Ativan is given. 348 patient and his for currently on an intake call with [facility] to consider ER transfer to inpatient care for his alcohol use disorder. 357 discussion with [facility]. They have beds and could accept patient. FUEL RETROFITTING TECHNICIAN will discuss with family and staff at [facility]. 455 Accepted and S transport arranged. Metoprolol sucinate given prior to d/c for control of his chronic atrial fibrillation Discharge Plan Departure Patient Disposition: Xfer [facility] Clinical Impression: Alcohol use disorder Atrial fibrillation Qualifiers: Atrial fibrillation type: longstanding persistent Qualified Code(s): I48.11 - Longstanding persistent atrial fibrillation Activity Restrictions/Additional Instructions: I am very glad that you have decided to go to [facility] to try and deal with your alcohol use disorder. You do have atrial fibrillation and do well on 50 mg of metoprolol succinate daily. You have been given a dose of this in the ER, your next dose will need to be tomorrow. At this time, your alcohol use disorder and medical risks that accompany that is too significant for you to be anticoagulated because of your atrial fibrillation. You can revisit this discussion with your primary care doctor in the future. I wish you the best in your recovery Referrals: Cris Reyna MD [Primary Care Provider] -
--- NOTE | 2019-11-15 11:39 | DI.RAD.S_ITS ---
PROCEDURE: XR CHEST 1V INDICATIONS: afib with RVR TECHNIQUE: One view of the chest was acquired. COMPARISON: [facility], CR, XR CHEST 1V, 10/12/2019, 13:43. FINDINGS: Surgical changes and devices: None. Lungs and pleura: Lungs are clear. No pleural effusions or pneumothorax. Mediastinum: Tortuous thoracic aorta is seen. Heart size is enlarged. Bones and chest wall: No suspicious bony lesions. Overlying soft tissues appear unremarkable. IMPRESSION: Cardiomegaly and tortuous thoracic aorta. No acute pulmonary pathology. Dictated by: Isaac Cassidy M.D. on 11/15/2019 at 10:58 Approved by: Isaac Cassidy M.D. on 11/15/2019 at 11:00
[2019-11-15 12:13] LABS: Alanine Aminotransferase 32 IU/L (<50); Albumin 4.2 g/dL (3.5-5.0); Albumin Globulin Ratio 1.5 (1.0-2.8); Alkaline Phosphatase 77 U/L (38-126); Aspartate Aminotransferase 65 IU/L (17-59); BUN Creatinine Ratio 16.7 (6-22); Bilirubin Total 0.8 mg/dL (0.2-1.3); Blood Urea Nitrogen 13 mg/dL (9-20); Calcium 8.8 mg/dL (8.4-10.2); Carbon Dioxide 24 mmol/L (22-32); Chloride 103 mmol/L (98-107); Estimated Glomerular Filt Rate > 60.0 mL/min (>60); Ethanol (ETOH) 97 mg/dL; Globulin 2.8 g/dL (1.7-4.1); Glucose 99 mg/dL (80-110); HEMOLYSIS < 15 (0-50); Potassium 4.2 mmol/L (3.4-5.1); Sodium 137 mmol/L (137-145)
[2019-11-15 12:18] LABS: Add Manual Diff / Slide Review NO; Basophils Absolute Auto 100 /uL (0-100); Basophils Percent Auto 1.7 % (0-2); Eosinophils Absolute Auto 0 /uL (0-450); Eosinophils Percent Auto 0.8 % (2-4); Hematocrit 33.6 % (41-53); Lymphocytes Absolute Auto 800 /uL (1100-4500); Lymphocytes Percent Auto 19.3 % (25-40); Mean Corpuscular HGB Conc 32.9 % (30-36); Mean Corpuscular Hemoglobin 32.1 PG (26-34); Mean Corpuscular Volume 97.5 fL (80-100); Monocytes Absolute Auto 500 /uL (0-900); Monocytes Percent Auto 12.3 % (3-14); Neutrophils Absolute Auto 2700 /uL (1500-7000); Neutrophils Percent Auto 65.9 % (50-75); Platelet Count 120 X10^3/uL (150-400); Red Blood Cell Count 3.44 X10^6/uL (4.5-5.9); Red Cell Distribution Width 17.6 % (11.6-14.8); White Blood Cell Count 4.1 X10^3/uL (4.5-11.0)
[2019-11-15 12:24] LABS: Troponin I < 0.012 ng/mL (0.01-0.034)
[2019-11-15] MEDS: METOPROLOL IR 25 MG TABLET 50 MG PO (12:48)
[2019-11-15] MEDS: METOPROLOL TARTRATE 5 MG/5 ML INJ IV ×3 (12:48→13:14)
--- NOTE | 2019-11-15 14:46 | CM.SWNOTE ---
CAR AND YARD SUPERVISOR Assessment CAR AND YARD SUPERVISOR - [employer] Developer Assessment CAR AND YARD SUPERVISOR - [employer] Data Warehouse Developer Assessment Start: 11/15/19 14:29 Freq: Status: Active Protocol: Document 11/15/19 14:29 PEDRO (Rec: 11/15/19 14:46 PEDRO [id number]) CAR AND YARD SUPERVISOR/[employer] Data Ware[employer] Developer Assessment Time Spent with Patient Start date 11/15/19 Visit Start Time 13:50 End date 11/15/19 Visit End Time 14:20 Total time Care Management spent on 30 patient visit-in minutes Substance Abuse Screening Include Onset, Duration, Intensity Presenting Problem Patient presents to ED today with stated complaint of AFIB. Patient is at ED with , who informs CAR AND YARD SUPERVISOR that patient has been to this ED multiple times stating cardiac concerns and has been informed by providers that his ETOH use is having severe negative impacts on his heart. Patient reports drinking 8- 10oz of bourbon daily. Patient's reports he drinks close to 750ml daily and drinks beer in addition. Precipitating Event(s) Patient has been to 3 times this year for concerns with cardio health related to his alcohol use. Patient's served patient with divorce papers in early October,, after patient refused to accept an inpatient placement. Patient Strengths Patient is calm and polite throughout assessment. Current Behavioral Health Provider(s) None reported. Patient was Include Facility, Provider, Ph. # referred to an outpatient therapist after leaving detox in September,, and never followed up. Family Hx of Behavioral Abuse None reported. Rehab Facilities? ((Date(s), Location(s) Patient attended detox at ) [facility] in September,. History of Withdrawal? Seizures? Patient experienced significant withdrawal symptoms in June of 2019, resulting in patient being placed on a ventilator. Longest Period of Sobriety Patient states he has quit for a week before. Patient's states his hospitalization in June of 2019 occurred after he had discontinued drinking for 1 day. Psychosocial information & Support Patient is a 74 y/o male who Systems presents to ED with his with cardiovascular concerns secondary to patient's chronic alcohol use. Patient's is at bedside and discusses previous attempts at treatment and discusses serving patient divorce papers. Patient and are of significant financial means and are able to afford treatment and services out of pocket. School/Work None. Legal Concerns Legal Matters - Outstanding Issues Patient has been served divorce papers by his . Mental Status Orientation (Person/Place/Time) Patient oriented to person and place. Unclear if patient is oriented to time based on assessment. Stated Mood I'm having AFIB Affect (Congruent with Mood?) dysphoric, flat, stable. Thought Content - Specify/Describe No hallucinations, delusions, Obsessions, Delusions, Hallucinations or obsessions observed or reported. Thought Processes (Eysfokr-Mkklijcm-Byeg Somewhat coherent Rdirurzm-Evoawbkg-Fsbimwzkha- Qzneqxzvpydoiw-Knykgtx-Anhpsuwrwzih- Thought Blocking) Speech (Rseceu-Cujf-Jrgurgr-Rapid-Soft- Slow Loud-Pressured) Motor (Jafcei-Pwxluxqzy-Wfor-Other) Slow Insight (Qzkf-Jsap-Kuhj/Limited) Poor Judgement (Cznf-Wgwk-Oyhd/Limited) Poor Impulse Control (Adequate-Impaired) Impaired Memory (Sleonvlpl-Xpyqzr-Dffnbr, Immediate appeared moderately Impaired-Intact) intact. Recent remote/impaired . Likely related to chronic significant alcohol use; further evaluation needed to establish clinical cause of this. Concentration (Intact-Impaired) Impaired Attention (Intact-Impaired) Mostly intact Behavior (Appropriate-Inappropriate) Appropriate. Risk Assessment Suicidal Ideation (Plan) No Homicidal Ideation (Plan) No Intervention Intervention CAR AND YARD SUPERVISOR meets with patient and . Patient consents to being at bedside. CAR AND YARD SUPERVISOR inquires about patient's ETOH use and patient reports he is not here for that and explains that he is in ED due to AFIB. Patient's explains that patient has been to ED multiple times for cardiac concerns secondary to patient' s alcohol use. Patient reports not remembering previous visits to ED or inpatient stays this year. Patient's discusses financial resources to pay for inpatient treatment out of pocket. After some discussion, patient reluctantly agrees to exploring options to transfer to inpatient from ED. CAR AND YARD SUPERVISOR staffs with Dr. Rios. Plan RA Plan CAR AND YARD SUPERVISOR will call local inpatient facilities to see if they are able to accept patient. Per patient's , patient has already completed assessments at [facility] and [facility], and CAR AND YARD SUPERVISOR will start by contacting these two facilities. JEROME Michaud
--- NOTE | 2019-11-15 14:55 | PC.NURSE ---
Bar drinks about 750mls based on how often the takes out empty bottles. He has not had anything to drink since roughly 1700.
[2019-11-15] MEDS: LORazepam 0.5 MG TABLET 2 MG PO (15:13)
--- NOTE | 2019-11-15 17:10 | CM.SWNOTE ---
YARN SPOOLER note After assessment, YARN SPOOLER calls [facility]. Staff at [facility] request clinical packet for patient and YARN SPOOLER faxes packet to [phone]. YARN SPOOLER then receives a call from Robinson Porter, and customer account coordinator at [facility]. JEROME provides brief overview of case and Robinson requests that he be connected with patient and . Due to lack of phone in patient room, YARN SPOOLER provides Robinson with ?s phone ([phone]) and Robinson calls patient?s directly. YARN SPOOLER receives call from Robinson following discussion with patient?s . Robinson reviews discussion with and patient with YARN SPOOLER, and Robinson informed that patient and would discuss next steps. Robinosn informed YARN SPOOLER that they had open beds and medical detox on site. Robinson informs YARN SPOOLER that one of patient?s ?s worries was about transportation. YARN SPOOLER discusses concerns with patient?s , and establish plan to transport patient via BLS transport. Patient?s calls [facility] to confirm patient?s upcoming admission, and YARN SPOOLER calls to coordinate transport details. Details for transfer below: Check in time: approx [id number]. Intake contact: Robinson Porter. Accepting provider: Dr. Nelson. Hyyxr-hr-dwjkr phone: [phone]. YARN SPOOLER updates RN Iraida, Dr. Rios. Plan is for patient to transfer to inpatient treatment for ETOH today. JEROME Michaud
[2019-11-15] MEDS: METOPROLOL ER 50 MG TABLET PO (17:20)
== END 2019-11-15 17:47 ==
PROVIDERS: Emergency Provider Emergency Medicine; PCP Student in an Organized Health Care Education/Training Program
DX: I48.11 Longstanding persistent atrial fibrillation (principal); Z72.89 Other problems related to lifestyle
CPT/HCPCS: 36415; 71045; 80053; 80320; 84484; 85025; 93005; 96374; 96376; 99284

== ENCOUNTER 2019-12-28 14:13 | Inpatient (IN) | payer MEDICARE, OTHER, SELFPAY ==
[2019-07-03 21:02] VITALS: PULSE 98; RESP 16; O2SAT 98
[2019-10-12 19:18] VITALS: BMI 24.3
[2019-12-28] VITALS (12 sets, daily range): BP systolic 121–172; BP diastolic 77–118; PULSE 95–128; RESP 18–28; TEMP 36.4–37.2; O2SAT 95–97; BMI 24.0; BMI 22.8
--- NOTE | 2019-12-28 14:41 | ED_ITS ---
HPI - Fall General Chief Complaint: Trauma Stated Complaint: Fall, Hit Head, Back Pain, In Afib Time Seen by Provider: 12/28/19 14:24 Source: patient Mode of arrival: Ambulatory Limitations: no limitations History of Present Illness HPI Narrative: Patient is a 74-year-old male with history of atrial fibrillation and alcohol abuse presenting today with increasing shortness of breath and a fall. He states he tripped and fell down some stairs last evening. He did hit his head that she contusion on the left side but he denies any loss of consciousness. He is not on any antiplatelet or anticoagulation medication. He states he did not drink alcohol today he does not have neck pain. He is however experiencing shortness of breath ongoing for last 24 hours. He is noted to be in AFib with RVR his sister states is chronically in atrial fibrillation but is frequently asymptomatic unless he is in RVR. He takes metoprolol when he feels like it, but not on a consistent basis. He is also complaining of back pain, in his lower back. He has no numbness tingling weakness or change in bowel or bladder habits. He denies any orthopnea or shortness of breath with exertion. He has no lower extremity edema. He denies any cough for fevers. MD complaint: fall Onset (ago): hour(s) Fall from: standing Fall witnessed: no Place fall occurred: home Loss of consciousness: none Related Data Home Medications Medication Instructions Recorded Confirmed metoprolol tartrate 50 mg PO BID 12/28/19 12/28/19 Allergies Allergy/AdvReac Type Severity Reaction Status Date / Time amoxicillin [AMOXICILLIN] Allergy Severe SWOLLEN JAW Verified 12/28/19 14:30 clindamycin [CLINDAMYCIN] AdvReac Severe C-DIFF Verified 12/28/19 14:30 Review of Systems Review of Systems ROS Unobtainable: All systems reviewed & are unremarkable except as noted in HPI and below Constitutional Constitutional: Denies chills, Denies fever(s), Denies lethargy and Denies weakness Eyes Eyes: Denies change in vision, Denies eye discharge, Denies irritation and Denies loss of vision ENT Ears, Nose, Mouth, and Throat: Denies change in voice, Denies neck pain and Denies sore throat Cardiovascular Cardiovascular: Denies chest pain, Reports irregular heart rhythm, Denies lightheadedness, Reports palpitations, Denies dyspnea, Reports dyspnea on exertion and Denies orthopnea Respiratory Respiratory: Denies cough, Denies dyspnea, Reports dyspnea on exertion and Denies wheezing Gastrointestinal Gastrointestinal: Denies abdominal pain, Denies change in bowel habits, Denies diarrhea, Denies nausea and Denies vomiting Musculoskeletal Musculoskeletal: Denies neck pain Neurologic Neurologic: Denies loss of vision and Denies weakness Endocrine Endocrine: Reports palpitations Allergic/Immunologic Allergic/Immunologic: Denies wheezing Patient History Medical History Alcohol abuse (Acute) Atrial fibrillation (Acute) Gout (Acute) HTN (hypertension) (Acute) Social History marital status: household members: spouse occupational status: previously employed Smoking Status: Former smoker alcohol intake: current substance use type: does not use Smoking Status: Former smoker alcohol intake frequency: 3 or more drinks per day Alcohol type: hard liquor Substance Use Type: does not use Exam Initial Vital Signs Initial Vital Signs: Vital Signs Pulse Rate 126 H 12/28/19 14:24 Pulse Oximetry 97 12/28/19 14:24 GENERAL: Alert male and in no acute distress. HEENT: Head contusion noted left temporal forehead no depressions or crepitations small scabbed superficial laceration as well. EOMI, [place] NECK: Cervical collar in place CARDIOVASCULAR: Regular rate and rhythm without murmurs, rubs or gallops. RESPIRATORY: Breath sounds equal bilaterally, no wheezes rales or rhonchi. ABDOMEN: Soft, nontender. Normoactive bowel sounds all 4 quadrants. No guarding or rebound. BACK: A mild lumbar pain in the paraspinal area no sign of trauma EXTREMITIES: Normal range of motion, no clubbing or edema. Neurovascularly intact NEUROLOGICAL: Alert and oriented x4.Normal gait and speech. Cranial nerves II through XII grossly intact. SKIN: Warm, dry, no laceration, no petechiae, no rashes or lesions. Course Orders Ordered: ED Orders 12/28/19 14:30 Complete Blood Count AUTO DIFF Stat Comprehensive Metabolic Panel Stat Lipase Stat NT-proBNP (BNP-Adult 18+) Stat Partial Thromboplastin Time Stat Prothrombin Time INR Stat Troponin & CK Cardiac Panel Stat 12/28/19 14:51 CT cervical spine wo con Stat CT head/brain wo con Stat XR lumbar spine 2-3V Stat 12/28/19 14:52 XR chest 1V Stat 12/28/19 16:09 COVID19 Stat Folic Acid (Folic Acid) 1 mg PO DAILY [facility] Folic Acid (Folic Acid) 1 mg PO DAILY [facility] Ibuprofen (Advil) 600 mg PO TID [facility] Influenza Virus Vaccine (Flu Hd Vaccine) 0.7 ml IM .ONCE ONE Stop: 12/28/19 18:10 Lorazepam (Ativan) 1 mg IV CIWAPRN ONE; Protocol Stop: 12/28/19 18:49 Metoprolol Succinate (Toprol Xl) 50 mg PO DAILY [facility] Metoprolol Succinate (Toprol Xl) 25 mg PO NOW ONE Stop: 12/28/19 19:05 Multivitamins (Tab-A-Cherri) 1 tab PO DAILY [facility] Multivitamins (Tab-A-Cherri) 1 tab PO DAILY [facility] Naloxone HCl (Narcan) 0.2 mg IV Q2MIN PRN PRN Reason: Opiate Reversal Thiamine HCl (Vitamin B-1) 100 mg PO DAILY [facility] Stop: 01/01/20 09:01 Thiamine HCl (Vitamin B-1) 100 mg PO DAILY [facility] Stop: 01/01/20 09:01 Discontinued Medications Furosemide (Lasix) 20 mg IV NOW ONE Stop: 12/28/19 15:47 Last Admin: 12/28/19 15:54 Dose: 20 mg Documented by: MMINOR Dextrose/Sodium Chloride (Dextrose 5%-0.9% Ns) 1,000 mls @ 100 mls/hr IV CONT [facility] Metoprolol Tartrate (Lopressor) 5 mg IV NOW ONE Stop: 12/28/19 15:47 Last Admin: 12/28/19 15:53 Dose: 5 mg Documented by: MMINOR Vital Signs Vital signs: Vital Signs - 8 hr 12/28/19 14:24 12/28/19 14:30 12/28/19 15:13 Temperature 97.6 F Pulse Rate 126 H 127 H 105 H Respiratory Rate 25 H Blood Pressure 162/110 H Pulse Oximetry 97 97 95 12/28/19 15:14 12/28/19 15:30 12/28/19 16:00 Temperature Pulse Rate 127 H 121 H 123 H Respiratory Rate 26 H 18 23 Blood Pressure 172/100 H 164/111 H 156/118 H Pulse Oximetry 97 97 97 MDM - Fall Lab Data Attestation: I reviewed the patient's lab results. Result diagrams: 12/28/19 14:30 12/28/19 14:30 Labs: Lab Results 12/28/19 12/28/19 12/28/19 Range/Units 14:30 14:30 14:30 WBC 8.8 (4.5-11.0) X10^3/uL RBC 4.32 L (4.5-5.9) X10^6/uL Hgb 13.5 (13.5-17.5) g/dL Hct 40.5 L (41-53) % MCV 93.8 (80-100) fL MCH 31.3 (26-34) PG MCHC 33.4 (30-36) % RDW 15.5 H (11.6-14.8) % Plt Count 184 (150-400) X10^3/uL Neut % (Auto) 80.5 H (50-75) % Lymph % (Auto) 11.7 L (25-40) % [place] % (Auto) 7.0 (3-14) % Eos % (Auto) 0.1 L (2-4) % Baso % (Auto) 0.7 (0-2) % Neut # (Auto) 7100 H (1336-0435) /uL Lymph # (Auto) 1000 L (2357-4953) /uL [place] # (Auto) 600 (0-900) /uL Eos # (Auto) 0 (0-450) /uL Baso # (Auto) 100 (0-100) /uL PT 12.0 (10.1-12.7) SECONDS INR 1.0 (0.9-1.3) APTT 24 L D (26.4-36.2) SECONDS Sodium (137-145) mmol/L Potassium (3.4-5.1) mmol/L Chloride (98-107) mmol/L Carbon Dioxide (22-32) mmol/L BUN (9-20) mg/dL Creatinine (0.66-1.25) mg/dL Estimated GFR (>60) mL/min BUN/Creatinine Ratio (6-22) Glucose (80-110) mg/dL Calcium (8.4-10.2) mg/dL Total Bilirubin (0.2-1.3) mg/dL AST (17-59) IU/L ALT (<50) IU/L Alkaline Phosphatase (38-126) U/L Total Creatine Kinase (55-170) U/L CK-MB (CK-2) (<2.37) ng/mL CK-MB (CK-2) Rel Index (1.5-5.0) % Troponin I (0.01-0.034) ng/mL NT-Pro-B Natriuret Pep 2660 H (<125) pg/mL Total Protein (6.3-8.2) g/dL Albumin (3.5-5.0) g/dL Globulin (1.7-4.1) g/dL Albumin/Globulin Ratio (1.0-2.8) Lipase (23-300) U/L COVID-19 PCR (Negative) 12/28/19 12/28/19 Range/Units 14:30 16:09 WBC (4.5-11.0) X10^3/uL RBC (4.5-5.9) X10^6/uL Hgb (13.5-17.5) g/dL Hct (41-53) % MCV (80-100) fL MCH (26-34) PG MCHC (30-36) % RDW (11.6-14.8) % Plt Count (150-400) X10^3/uL Neut % (Auto) (50-75) % Lymph % (Auto) (25-40) % [place] % (Auto) (3-14) % Eos % (Auto) (2-4) % Baso % (Auto) (0-2) % Neut # (Auto) (1131-4346) /uL Lymph # (Auto) (9406-6548) /uL [place] # (Auto) (0-900) /uL Eos # (Auto) (0-450) /uL Baso # (Auto) (0-100) /uL PT (10.1-12.7) SECONDS INR (0.9-1.3) APTT (26.4-36.2) SECONDS Sodium 137 (137-145) mmol/L Potassium 4.5 (3.4-5.1) mmol/L Chloride 102 (98-107) mmol/L Carbon Dioxide 28 (22-32) mmol/L BUN 17 (9-20) mg/dL Creatinine 0.84 (0.66-1.25) mg/dL Estimated GFR > 60.0 (>60) mL/min BUN/Creatinine Ratio 20.2 (6-22) Glucose 165 H (80-110) mg/dL Calcium 9.4 (8.4-10.2) mg/dL Total Bilirubin 1.4 H (0.2-1.3) mg/dL AST 48 (17-59) IU/L ALT 28 (<50) IU/L Alkaline Phosphatase 83 (38-126) U/L Total Creatine Kinase 328 H (55-170) U/L CK-MB (CK-2) 3.31 H (<2.37) ng/mL CK-MB (CK-2) Rel Index 1.0 L (1.5-5.0) % Troponin I < 0.012 (0.01-0.034) ng/mL NT-Pro-B Natriuret Pep (<125) pg/mL Total Protein 8.0 (6.3-8.2) g/dL Albumin 4.7 (3.5-5.0) g/dL Globulin 3.3 (1.7-4.1) g/dL Albumin/Globulin Ratio 1.4 (1.0-2.8) Lipase 41 (23-300) U/L COVID-19 PCR Negative (Negative) ECG Data Attestation: I personally reviewed and interpreted this ECG as follows: Prior ECG tracings: available for review Interpretation: Atrial fibrillation rate [address] changes MDM Narrative Medical decision making narrative: The patient has a history of atrial fibrillation he seems to be relative eat symptomatic must be than or VR. He is having increasing shortness of breath and blood work does reveal elevated BNP. Chest x-ray shows bilateral pneumonia however I think this is more CHF changes he has no cough shortness of breath white count or fever to suggest pneumonia. His heart rate did slow down with 1 dose of Lopressor. He has urinated with Lasix. Does not appear to be in any respiratory distress however he does have new onset CHF. Patient does have a history of severe delirium tremens, and seizures. Dr. Conroy updated on patient's symptoms test results accepts patient Discharge Plan Departure Patient Disposition: Admitted As Inpatient Clinical Impression: Atrial fibrillation with RVR CHF (congestive heart failure) Qualifiers: Heart failure type: unspecified Heart failure chronicity: unspecified Qualified Code(s): I50.9 - Heart failure, unspecified Discharge Date/Time: 12/28/19 16:55 Referrals: Cris Reyna MD [Primary Care Provider] - Admit Date/Time: 12/28/19 16:15 Admit Provider: Jose E Conroy
--- NOTE | 2019-12-28 14:51 | DI.CT.S_ITS ---
PROCEDURE: CT CERVICAL SPINE WO CON INDICATIONS: pain fall TECHNIQUE: Noncontrast 3 mm thick sections acquired from the skull base to the T4 level. Sagittal and coronal reformats were then constructed. For radiation dose reduction, the following was used: automated exposure control, adjustment of mA and/or kV according to patient size. COMPARISON: None. FINDINGS: Image quality: Partially degraded by motion artifact. Bones: No fractures or dislocations. Visualized superior ribs are intact. Moderate chronic appearing wedging of see C6, C7 and T2. Multilevel disc space narrowing and endplate osteophyte formation. Multilevel facet hypertrophy. Soft tissues: Prevertebral soft tissues are normal in thickness. No paravertebral hematomas. No apical pneumothoraces. IMPRESSION: 1. Multilevel degenerative disc and facet disease. 2. Multilevel chronic appearing cervical thoracic compression fractures. No evidence of acute fracture. Dictated by: Luisito Tan M.D. on 12/28/2019 at 15:28 Approved by: Luisito Tan M.D. on 12/28/2019 at 15:30
--- NOTE | 2019-12-28 14:51 | DI.RAD.S_ITS ---
PROCEDURE: XR LUMBAR SPINE 2-3V INDICATIONS: fall pain TECHNIQUE: 3 views of the lumbar spine were acquired. COMPARISON: None. FINDINGS: Bones: 5 veh-pan-lfoftls vertebrae are present. There is normal bony alignment. There is moderate wedging of T12 and L1 of uncertain acuity. No suspicious bony lesions. Multilevel endplate osteophytes and facet hypertrophy. Soft tissues: Overlying bowel gas pattern is normal. No suspicious soft tissue calcifications. IMPRESSION: 1. Age indeterminate compression fractures of T12 and L1. Dictated by: Luisito Tan M.D. on 12/28/2019 at 15:22 Approved by: Luisito Tan M.D. on 12/28/2019 at 15:23
--- NOTE | 2019-12-28 14:51 | DI.CT.S_ITS ---
PROCEDURE: CT HEAD/BRAIN WO CON INDICATIONS: fall TECHNIQUE: Noncontrast 4.5 mm thick angled axial sections acquired from the foramen magnum to the vertex, with coronal and sagittal reformats. For radiation dose reduction, the following was used: automated exposure control, adjustment of mA and/or kV according to patient size. COMPARISON: [facility], CT, CT HEAD/BRAIN WO CON, 07/03/2019, 20:13. FINDINGS: Image quality: Excellent. CSF spaces: Basal cisterns are patent. No extra-axial fluid collections. The ventricles are symmetric in size and shape. Brain: No intracranial bleeds or masses. There is cerebral volume loss for age, with resultant ventricular and sulcal prominence. There are periventricular and deep white matter chronic small vessel ischemic changes. There is intracranial internal carotid artery atherosclerosis. Skull and face: Calvarium and visualized facial bones appear intact, without suspicious lesions. Sinuses: Visualized sinuses and mastoids are clear. IMPRESSION: 1. No acute process. 2. Volume loss and small vessel ischemic disease. Dictated by: Luisito Tan M.D. on 12/28/2019 at 15:25 Approved by: Luisito Tan M.D. on 12/28/2019 at 15:25
--- NOTE | 2019-12-28 14:52 | DI.RAD.S_ITS ---
PROCEDURE: XR CHEST 1V INDICATIONS: chest pain sob TECHNIQUE: One view of the chest was acquired. COMPARISON: [facility], CR, XR CHEST 1V, 11/15/2019, 11:42. FINDINGS: Surgical changes and devices: None. Lungs and pleura: There is mild patchy airspace opacity within the right lung base and left perihilar location. No pleural effusions or pneumothorax. Mediastinum: Mediastinal contours appear normal. Heart size is normal. Bones and chest wall: No suspicious bony lesions. Overlying soft tissues appear unremarkable. IMPRESSION: Bilateral pneumonia. Dictated by: Luisito Tan M.D. on 12/28/2019 at 15:08 Approved by: Luisito Tan M.D. on 12/28/2019 at 15:09
[2019-12-28 15:09] LABS: Add Manual Diff / Slide Review NO; Basophils Absolute Auto 100 /uL (0-100); Basophils Percent Auto 0.7 % (0-2); Eosinophils Absolute Auto 0 /uL (0-450); Eosinophils Percent Auto 0.1 % (2-4); Hematocrit 40.5 % (41-53); Hemoglobin 13.5 g/dL (13.5-17.5); Lymphocytes Absolute Auto 1000 /uL (1100-4500); Lymphocytes Percent Auto 11.7 % (25-40); Mean Corpuscular HGB Conc 33.4 % (30-36); Mean Corpuscular Hemoglobin 31.3 PG (26-34); Mean Corpuscular Volume 93.8 fL (80-100); Monocytes Absolute Auto 600 /uL (0-900); Neutrophils Absolute Auto 7100 /uL (1500-7000); Neutrophils Percent Auto 80.5 % (50-75); Platelet Count 184 X10^3/uL (150-400); Red Blood Cell Count 4.32 X10^6/uL (4.5-5.9); Red Cell Distribution Width 15.5 % (11.6-14.8); White Blood Cell Count 8.8 X10^3/uL (4.5-11.0)
[2019-12-28 15:12] LABS: PTT Partial Thromboplastin Tim 24 SECONDS (26.4-36.2)
[2019-12-28 15:13] LABS: Alanine Aminotransferase 28 IU/L (<50); Albumin 4.7 g/dL (3.5-5.0); Albumin Globulin Ratio 1.4 (1.0-2.8); Alkaline Phosphatase 83 U/L (38-126); Aspartate Aminotransferase 48 IU/L (17-59); BUN Creatinine Ratio 20.2 (6-22); Bilirubin Total 1.4 mg/dL (0.2-1.3); Blood Urea Nitrogen 17 mg/dL (9-20); Calcium 9.4 mg/dL (8.4-10.2); Carbon Dioxide 28 mmol/L (22-32); Chloride 102 mmol/L (98-107); Creatine Kinase 328 U/L (55-170); Estimated Glomerular Filt Rate > 60.0 mL/min (>60); Globulin 3.3 g/dL (1.7-4.1); Glucose 165 mg/dL (80-110); Lipase 41 U/L (23-300); Potassium 4.5 mmol/L (3.4-5.1); Sodium 137 mmol/L (137-145)
[2019-12-28 15:22] LABS: NT-proBNP (BNP-Adult 18+) 2660 pg/mL (<125)
[2019-12-28 15:24] LABS: Troponin I < 0.012 ng/mL (0.01-0.034)
[2019-12-28 15:28] LABS: Creatine Kinase MB 3.31 ng/mL (<2.37); HEMOLYSIS 47 (0-50)
[2019-12-28] MEDS: METOPROLOL TARTRATE 5 MG/5 ML INJ IV (15:53)
[2019-12-28] MEDS: FUROSEMIDE 40 MG/4 ML VIAL 20 MG IV (15:54)
[2019-12-28 16:35] LABS: COVID19 -Nasal RAPID Negative (Negative)
--- NOTE | 2019-12-28 16:53 | PC.NURSE ---
Report given to Chelsey Baez RN on AC
--- NOTE | 2019-12-28 18:09 | DI.ECHO.S_ITS ---
[facility] +---------+ : : [address] : [address] : : : : [id number] : : : : Phone: [phone]+ Echocardiogram Report + + :Name: YVETTE MASTERS Study Date: 12/29/2019 Height: 69.5 in: :[facility] Weight: 156 lb : : Gender: Male BSA: 1.9 m2 : :: 1945 Age: 74 yrs BP: 134/86 mmHg: :Reason For Study: Estimate Ejection Fraction : :Ordering Physician: RIN ALLENPerformed By: Mallory Villa : :Referring: RIN ALLEN : + + Interpretation Summary The left ventricle is normal in size and wall thickness. Left ventricular systolic function is mildly reduced. The ejection fraction is estimated to be 40-45%. Left ventricular function has moderately worsened compared to the previous exam. There is mild global hypokinesis with more prominent hypokinesis along the basal inferior wall. Diastolic function could not be accurately assessed due to atrial fibrillation. The right ventricle is normal in size and function. The right ventricular systolic pressure is estimated to be at least 26 mmHg based on an estimated right atrial pressure of 3 mm Hg. The left atrium is severely dilated. The right atrium is moderately dilated. There is mild aortic valve sclerosis. The aortic valve opens well. There is no other significant valvular heart disease. The aortic root is normal size. Procedure: A two-dimensional transthoracic echocardiogram with color flow and Doppler was performed. The study quality was technically adequate. Comparison is made with the echocardiogram of 09/30/2016. The patient was in atrial fibrillation with heart rates between 76-96 bpm during the exam. Left Ventricle: The left ventricle is normal in size and wall thickness. Left ventricular systolic function is mildly reduced. The ejection fraction is estimated to be 40-45%. Left ventricular function has moderately worsened compared to the previous exam. There is mild global hypokinesis with more prominent hypokinesis along the basal inferior wall. Diastolic function could not be accurately assessed due to atrial fibrillation. Right Ventricle: The right ventricle is normal in size and function. Atria: The left atrium is severely dilated. The right atrium is moderately dilated. There is no Doppler evidence for an interatrial shunt. Mitral Valve: There is mild mitral annular calcification. The mitral valve is normal in structure and function. There is trace mitral regurgitation. Aortic Valve: The aortic valve is trileaflet. The aortic valve opens well. There is mild aortic valve sclerosis. There is no aortic valve stenosis. No aortic regurgitation is present. Tricuspid Valve: The tricuspid valve is normal in structure and function. There is mild tricuspid regurgitation. The right ventricular systolic pressure is estimated to be at least 26 mmHg based on an estimated right atrial pressure of 3 mm Hg. Pulmonic Valve: The pulmonic valve is not well seen, but is grossly normal. There is no pulmonic valvular regurgitation. There is no other significant valvular heart disease. Great Vessels: The aortic root is normal size. The ascending aorta is at the upper limits of normal in size. The IVC is of normal diameter and collapses greater than 50% with a sniff. This suggests a low right atrial pressure of 3 mm Hg. Pericardium/ Pleura There is no pericardial effusion. There is no pleural effusion. MMode/2D Measurements & Calculations LVIDd: 4.4 cm LVOT diam: 2.1 cm LVIDs: 3.7 cm Ao root diam: 3.0 cm FS: 16.5 % asc Aorta Diam: 3.4 cm EPSS: 0.98 cm Ao Arch Diam (Prox Trans): 3.1 cm IVSd: 0.86 cm LVPWd: 0.91 cm LV haas. diameter/BSA (cm/m^2): 2.3 LV sys. diameter/BSA (cm/m^2): 2.0 LA A2 area: 32.2 cm2 RA long axis: 6.1 cm LA A4 area: 30.6 cm2 RA area: 24.8 cm2 LA length (vol): 6.4 cm RA vol: 84.9 ml LA vol: 130.3 ml RA : 45.4 ml/m2 LA vol index: 69.7 ml/m2 IVC diam: 1.2 cm RVD1 (basal): 3.5 cm TAPSE: 2.1 cm Doppler Measurements & Calculations Ao V2 max: 121.7 cm/sec LVOT Max Sharath: 76.5 cm/sec Ao V2 mean: 83.6 cm/sec LV V1 max P.3 mmHg Ao max P.9 mmHg LV V1 VTI: 14.9 cm Ao mean P.2 mmHg MATIAS(I,D): 2.2 cm2 Ao V2 VTI: 23.6 cm MATIAS(V,D): 2.2 cm2 sev ratio: 0.63 MATIAS indexed to BSA (cm^2/m^2): 1.2 MV E max sharath: 86.7 cm/sec TR max sharath: 241.4 cm/sec MV A max sharath: 1.1 cm/sec TR max P.3 mmHg MV E/A: 77.5 PA V2 max: 64.9 cm/sec Med Peak E' Sharath: 7.6 cm/sec PA V2 mean: 42.0 cm/sec E/E' med: 11.4 PA mean P.84 mmHg Lat Peak E' Sharath: 11.8 cm/sec PA pr(Accel): 39.6 mmHg E/E' lat: 7.4 E/e' average: 9.4 MV dec time: 0.12 sec SV(LVOT): 51.7 ml Reading Physician:05:06 PM
--- NOTE | 2019-12-28 18:53 | PM.HP.1 ---
History of Present Illness History of Present Illness Date Patient Seen: 12/28/19 Time Patient Seen: 18:53 Date of Onset of Symptoms: 12/27/19 Chief complaint: Fall, Hit Head, Back Pain, In Afib Narrative: Congestive heart failure Patient admitted through the ER this afternoon for several reasons 1 of which is congestive heart failure. Patient had admitted to feeling short of breath the last couple days but did not feel like it was of any consequence. He is not aware of having congestive heart failure in the past. Evaluation in the ER led to the conclusion that he did indeed have mild/early congestive heart failure given diuretics and admitted for observation and management. Additionally patient has atrial fibrillation has been ongoing. He had been prescribed metoprolol succinate 50 mg daily but he does take medical and K kapoor very irregularly unclear when last pill. He also was suggested to be on anticoagulation because of his atrial fibrillation but he has alcoholism and he has frequent falls and therefore did not be a candidate for anticoagulation. Second problem was last night he fell down the stairs did not lose consciousness scraped his right correction left elbow is strained his back and Bang his head. This morning EKG weak and found that his back is more painful so he that actually causing go the ER from his perspective. Apparently has a history of a compression fracture in the lower thoracic spine. Significance patient has had major problems with alcohol withdrawals over the last several months. He has been at [facility] then transferred down to the [facility] for ongoing delirium tremens. During the course of all this he was on a ventilator and did require fair amount sedation. Once that all recovered he was transferred to inpatient alcohol rehab center and he was there for approximately 5 weeks he thinks he was discharged week ago but he is not real clear. Apparently emergency room physician was told he got discharged last week. Since discharge he has been 20 oz of bourbon daily. last drink was last night about 8:00 p.m.. Says he has had no drink today. He has not had ongoing tremor he has had no chest pain no shortness of breath a he does feels atrial fibrillation speed up at times and is somewhat problematic. Additionally while he is here last time he had a EKOS as showed a significant reduced ejection fraction 1 was planned to be done as an outpatient but was never accomplished. This will be done here tomorrow for follow-up. Patient History Medical History (Updated 12/28/19 @ 16:13 by Dawn Paez DO) Alcohol abuse (Acute) Atrial fibrillation (Acute) Gout (Acute) HTN (hypertension) (Acute) Family & Social History Social History: household members spouse Prior Living Arrangements House Safety & Behavioral: Feels Safe in Current Yes Environment Tobacco & Substance use: Tobacco type cigarettes Smoking Status Former smoker alcohol intake current alcohol intake frequency 3 or more drinks per day Substance Use Type does not use Meds Home Medications and Allergies Home Medications Medication Instructions Recorded Confirmed Type metoprolol tartrate 50 mg PO BID 12/28/19 12/28/19 History Allergies Allergy/AdvReac Type Severity Reaction Status Date / Time amoxicillin [AMOXICILLIN] Allergy Severe SWOLLEN JAW Verified 12/28/19 14:30 clindamycin [CLINDAMYCIN] AdvReac Severe C-DIFF Verified 12/28/19 14:30 Exam Vital Signs (past 8 hours): - 12/28/19 14:24 12/28/19 14:30 12/28/19 15:13 Temperature 97.6 F Pulse Rate 126 H 127 H 105 H Respiratory Rate 25 H Blood Pressure 162/110 H Pulse Oximetry 97 97 95 12/28/19 15:14 12/28/19 15:30 12/28/19 16:00 Temperature Pulse Rate 127 H 121 H 123 H Respiratory Rate 26 H 18 23 Blood Pressure 172/100 H 164/111 H 156/118 H Pulse Oximetry 97 97 97 12/28/19 16:30 Temperature Pulse Rate 116 H Respiratory Rate 22 Blood Pressure 150/93 H Pulse Oximetry 96 Oxygen Delivery Method Room Air Objective Labs Result Diagrams: 12/28/19 14:30 12/28/19 14:30 Labs: Laboratory Results - last 24 hr 12/28/19 12/28/19 12/28/19 14:30 14:30 14:30 WBC 8.8 RBC 4.32 L Hgb 13.5 Hct 40.5 L MCV 93.8 MCH 31.3 MCHC 33.4 RDW 15.5 H Plt Count 184 Neut % (Auto) 80.5 H Lymph % (Auto) 11.7 L Polk % (Auto) 7.0 Eos % (Auto) 0.1 L Baso % (Auto) 0.7 Neut # (Auto) 7100 H Lymph # (Auto) 1000 L Polk # (Auto) 600 Eos # (Auto) 0 Baso # (Auto) 100 PT 12.0 INR 1.0 APTT 24 L D Sodium Potassium Chloride Carbon Dioxide BUN Creatinine Estimated GFR BUN/Creatinine Ratio Glucose Calcium Total Bilirubin AST ALT Alkaline Phosphatase Total Creatine Kinase CK-MB (CK-2) CK-MB (CK-2) Rel Index Troponin I NT-Pro-B Natriuret Pep 2660 H Total Protein Albumin Globulin Albumin/Globulin Ratio Lipase COVID-19 PCR 12/28/19 12/28/19 14:30 16:09 WBC RBC Hgb Hct MCV MCH MCHC RDW Plt Count Neut % (Auto) Lymph % (Auto) Polk % (Auto) Eos % (Auto) Baso % (Auto) Neut # (Auto) Lymph # (Auto) Polk # (Auto) Eos # (Auto) Baso # (Auto) PT INR APTT Sodium 137 Potassium 4.5 Chloride 102 Carbon Dioxide 28 BUN 17 Creatinine 0.84 Estimated GFR > 60.0 BUN/Creatinine Ratio 20.2 Glucose 165 H Calcium 9.4 Total Bilirubin 1.4 H AST 48 ALT 28 Alkaline Phosphatase 83 Total Creatine Kinase 328 H CK-MB (CK-2) 3.31 H CK-MB (CK-2) Rel Index 1.0 L Troponin I < 0.012 NT-Pro-B Natriuret Pep Total Protein 8.0 Albumin 4.7 Globulin 3.3 Albumin/Globulin Ratio 1.4 Lipase 41 COVID-19 PCR Negative
--- NOTE | 2019-12-28 18:58 | P.HP_ITS ---
History of Present Illness History of Present Illness Chief complaint: Fall, Hit Head, Back Pain, In Afib Narrative: Congestive heart failure Patient admitted through the ER this afternoon for several reasons 1 of which is congestive heart failure. Patient had admitted to feeling short of breath the last couple days but did not feel like it was of any consequence. He is not aware of having congestive heart failure in the past. Evaluation in the ER led to the conclusion that he did indeed have mild/early c ongestive heart failure given diuretics and admitted for observation and management. Additionally patient has atrial fibrillation has been ongoing. He had been prescribed metoprolol succinate 50 mg daily but he does take medical and K kapoor very irregularly unclear when last pill. He also was suggested to be on anticoagulation because of his atrial fibrillation but he has alcoholism and he has frequent falls and therefore did not be a candidate for anticoagulation. Second problem was last night he fell down the stairs did not lose consciousness scraped his right correction left elbow is strained his back and Bang his head. This morning EKG weak and found that his back is more painful so he that actually causing go the ER from his perspective. Apparently has a history of a compression fracture in the lower thoracic spine. Significance patient has had major problems with alcohol withdrawals over the last several months. He has been at [facility] then transferred down to the [facility] for ongoing delirium tremens. During the course of all this he was on a ventilator and did require fair amount sedation. Once that all recovered he was transferred to inpatient alcohol rehab center and he was there for approximately 5 weeks he thinks he was discharged week ago but he is not real clear. Apparently emergency room physician was told he got discharged last week. Since discharge he has been 20 oz of bourbon daily. last drink was last night about 8:00 p.m.. Says he has had no drink today. He has not had ongoing tremor he has had no chest pain no shortness of breath a he does feels atrial fibrillation speed up at times and is somewhat problematic. Additionally while he is here last time he had a EKOS as showed a significant reduced ejection fraction 1 was planned to be done as an outpatient but was never accomplished. This will be done here tomorrow for follow-up. Patient History Medical History Alcohol abuse (Acute) Atrial fibrillation (Acute) Gout (Acute) HTN (hypertension) (Acute) Family & Social History Social History: household members spouse Prior Living Arrangements House Safety & Behavioral: Feels Safe in Current Yes Environment Tobacco & Substance use: Tobacco type cigarettes Smoking Status Former smoker alcohol intake current alcohol intake frequency 3 or more drinks per day Substance Use Type does not use Meds Home Medications and Allergies Home Medications Medication Instructions Recorded Confirmed Type metoprolol tartrate 50 mg PO BID 12/28/19 12/28/19 History Allergies Allergy/AdvReac Type Severity Reaction Status Date / Time amoxicillin [AMOXICILLIN] Allergy Severe SWOLLEN JAW Verified 12/28/19 14:30 clindamycin [CLINDAMYCIN] AdvReac Severe C-DIFF Verified 12/28/19 14:30 Review of Systems Review of Systems ROS: Yes All systems reviewed with the patient and are negative except as otherwise documented Exam Vital Signs (past 8 hours): - 12/28/19 14:24 12/28/19 14:30 12/28/19 15:13 Temperature 97.6 F Pulse Rate 126 H 127 H 105 H Respiratory Rate 25 H Blood Pressure 162/110 H Pulse Oximetry 97 97 95 12/28/19 15:14 12/28/19 15:30 12/28/19 16:00 Temperature Pulse Rate 127 H 121 H 123 H Respiratory Rate 26 H 18 23 Blood Pressure 172/100 H 164/111 H 156/118 H Pulse Oximetry 97 97 97 12/28/19 16:30 Temperature Pulse Rate 116 H Respiratory Rate 22 Blood Pressure 150/93 H Pulse Oximetry 96 Oxygen Delivery Method Room Air Narrative Exam Narrative: Gen.: Patient is examined in hospital bed he is sitting up the finishing his dinner and appears in no distress whatsoever conversant alert and oriented x3. Skin: Warm well perfused. No prominent lesions. Nonicteric. HEENT: PERRL., normal EOM, external ears canals TMs normal, nasal mucosa normal and midline septum, oropharynx without lesions. Neck: Trachea midline. Thyroid nontender and not enlarged. Carotids without bruits. No lymphadenopathy Back: No obvious deformity or tenderness. Chest: Clear to P&A. Symmetric. CV: RRR no murmur or gallop. No JVD. Abdomen: No masses bruits tenderness or visceromegaly. Neuro: Cranial nerves II through XII grossly intact. Sensory and motor exams intact. Gait normal. Mental status: Intact for screening Extremities: No cyanosis clubbing or edema Musculoskeletal: No gross deformities Lymphatics: Negative for lymphadenopathy, supraclavicular axillary or inguinal. He has a small hematoma over the left triceps area. Addition left side is face lateral to his or but there is a is minor hematoma. Back is tender in lumbar area. He has no tremor. Cranial nerves 2-12 intact. Objective Labs Result Diagrams: 12/28/19 14:30 12/28/19 14:30 Labs: Laboratory Results - last 24 hr 12/28/19 12/28/19 12/28/19 14:30 14:30 14:30 WBC 8.8 RBC 4.32 L Hgb 13.5 Hct 40.5 L MCV 93.8 MCH 31.3 MCHC 33.4 RDW 15.5 H Plt Count 184 Neut % (Auto) 80.5 H Lymph % (Auto) 11.7 L Wright % (Auto) 7.0 Eos % (Auto) 0.1 L Baso % (Auto) 0.7 Neut # (Auto) 7100 H Lymph # (Auto) 1000 L Wright # (Auto) 600 Eos # (Auto) 0 Baso # (Auto) 100 PT 12.0 INR 1.0 APTT 24 L D Sodium Potassium Chloride Carbon Dioxide BUN Creatinine Estimated GFR BUN/Creatinine Ratio Glucose Calcium Total Bilirubin AST ALT Alkaline Phosphatase Total Creatine Kinase CK-MB (CK-2) CK-MB (CK-2) Rel Index Troponin I NT-Pro-B Natriuret Pep 2660 H Total Protein Albumin Globulin Albumin/Globulin Ratio Lipase COVID-19 PCR 12/28/19 12/28/19 14:30 16:09 WBC RBC Hgb Hct MCV MCH MCHC RDW Plt Count Neut % (Auto) Lymph % (Auto) Wright % (Auto) Eos % (Auto) Baso % (Auto) Neut # (Auto) Lymph # (Auto) Wright # (Auto) Eos # (Auto) Baso # (Auto) PT INR APTT Sodium 137 Potassium 4.5 Chloride 102 Carbon Dioxide 28 BUN 17 Creatinine 0.84 Estimated GFR > 60.0 BUN/Creatinine Ratio 20.2 Glucose 165 H Calcium 9.4 Total Bilirubin 1.4 H AST 48 ALT 28 Alkaline Phosphatase 83 Total Creatine Kinase 328 H CK-MB (CK-2) 3.31 H CK-MB (CK-2) Rel Index 1.0 L Troponin I < 0.012 NT-Pro-B Natriuret Pep Total Protein 8.0 Albumin 4.7 Globulin 3.3 Albumin/Globulin Ratio 1.4 Lipase 41 COVID-19 PCR Negative Labs review of significance is elevation of the BNP. Additionally chest x-ray showed bilateral infiltrates radiologist interpreted as pneumonia clinically patient does not have pneumonia but more likely has congestive heart failure. Assessment & Plan Assessment & Plan narrative: 1. Acute onset of congestive heart failure likely related to his atrial fibrillation. A echocardiogram to be done tomorrow for for further evaluation of his cardiac status he will be treated with IV Lasix as needed. He was given 20 mg in the emergency room he did diurese a fair amount. Does not appear to need added a diuresis now is O2 sats are normal on room air and his lungs sound reasonably clear. 2. Atrial fibrillation again noncompliant with medications we will give him an extra 25 mg of metoprolol now since heart rate is running about 100 11/14/2019. And resume the 50 mg daily tomorrow appeared 3. Alcoholic with the alcohol intoxication in the past the presumably not so much now. He is still is at risk for withdrawals based on his prior history. Placed on CIWA protocol as per usual. 4. Abrasions in and ecchymoses relatively minor. Head CT was done showed no hemorrhage no signs of trauma 5. Patient will be here for couple days getting his atrial fib under control and reassessing congestive heart failure and cardiac status. Assuming he does not have any withdrawal problems. Discharge planning as per Dr. Reyna who will be back on Monday for further evaluation
[2019-12-28] MEDS: METOPROLOL ER 25 MG TABLET PO (19:56)
[2019-12-28] MEDS: LORazepam 2 MG/ML INJ 1 MG IV (19:58)
[2019-12-28] MEDS: IBUPROFEN 600 MG TABLET PO (21:01)
[2019-12-28] MEDS: INFLUENZA HD VACCINE 0.7 ML SYRINGE IM (21:14)
--- NOTE | 2019-12-28 21:28 | PC.NURSE ---
Pt arrived to floor @ 1705 DX new CHF Alert/oriented/ forgetful Presents w/ bruising to the left forehead & side of face Lungs clear, SpO2 96% RA Per ;Pt apparently fell down stairs at home after drinking 12/26. HL RAC intact/patent. CiWa @ 1730 = 1; around 1929 CiWa = 8 by BABYSITTER, med w/ativan. Upon reevaluation it was 5. Currently @ 0 = 1 Tele showing A-fib per ICU staff. Med w/ibuprofen for back discomfort. Pt denies issues at this time. Call light w/in reach, bed alarm on for pt safety. Continue w/plan of care.
[2019-12-29] VITALS (12 sets, daily range): BP systolic 98–131; BP diastolic 57–83; PULSE 74–103; RESP 16–18; TEMP 36.4–37.1; O2SAT 93–96
[2019-12-29] MEDS: THIAMINE 100 MG TABLET PO (08:51)
[2019-12-29] MEDS: FOLIC ACID 1 MG TABLET PO (08:51)
[2019-12-29] MEDS: MULTIVITAMIN 1 TABLET 1 TAB PO (08:51)
[2019-12-29] MEDS: METOPROLOL ER 50 MG TABLET PO (08:51)
[2019-12-29] MEDS: IBUPROFEN 600 MG TABLET PO ×2 (08:52→16:27)
--- NOTE | 2019-12-29 09:30 | PM.PN.1 ---
Subjective Subjective Date Patient Seen: 12/29/19 Time Patient Seen: 09:31 Interval history: CHF. Patient feeling much better today than yesterday. No shortness of breath no chest pain no palpitations no headache and no tremor has been out of bed to the bathroom but not out of the bed walking the hallway yet to be determined. Appetite is reasonable. Injuries from his fall her left significant today causing a minor problems back bothers him if he moves the wrong way. Anticipating being discharged tomorrow Exam Vital Signs (past 8 hours): - 12/29/19 05:19 12/29/19 08:00 Temperature 98.1 F 98.0 F Pulse Rate 76 74 Respiratory Rate 18 16 Blood Pressure 105/69 98/63 Pulse Oximetry 96 94 Oxygen Delivery Method Room Air Oxygen Flow Rate 0 Narrative Exam Narrative: Patient is sitting up in his hospital bed appears in no distress. Seems a bit more alert than he was yesterday. He appears in no respiratory distress. ENT is normal lungs are entirely clear does not take a deep breath sitting in bed however. Cardiac exam he has irregular rhythm at about 80 at has been atrial fib overnight with controlled ventricular rate. Calves are nontender. He has no edema. Objective Labs Result Diagrams: 12/28/19 14:30 12/28/19 14:30 Labs: Laboratory Results - last 24 hr 12/28/19 12/28/19 12/28/19 14:30 14:30 14:30 WBC 8.8 RBC 4.32 L Hgb 13.5 Hct 40.5 L MCV 93.8 MCH 31.3 MCHC 33.4 RDW 15.5 H Plt Count 184 Neut % (Auto) 80.5 H Lymph % (Auto) 11.7 L Ramsey % (Auto) 7.0 Eos % (Auto) 0.1 L Baso % (Auto) 0.7 Neut # (Auto) 7100 H Lymph # (Auto) 1000 L Ramsey # (Auto) 600 Eos # (Auto) 0 Baso # (Auto) 100 PT 12.0 INR 1.0 APTT 24 L D Sodium Potassium Chloride Carbon Dioxide BUN Creatinine Estimated GFR BUN/Creatinine Ratio Glucose Calcium Total Bilirubin AST ALT Alkaline Phosphatase Total Creatine Kinase CK-MB (CK-2) CK-MB (CK-2) Rel Index Troponin I NT-Pro-B Natriuret Pep 2660 H Total Protein Albumin Globulin Albumin/Globulin Ratio Lipase COVID-19 PCR 12/28/19 12/28/19 14:30 16:09 WBC RBC Hgb Hct MCV MCH MCHC RDW Plt Count Neut % (Auto) Lymph % (Auto) Ramsey % (Auto) Eos % (Auto) Baso % (Auto) Neut # (Auto) Lymph # (Auto) Ramsey # (Auto) Eos # (Auto) Baso # (Auto) PT INR APTT Sodium 137 Potassium 4.5 Chloride 102 Carbon Dioxide 28 BUN 17 Creatinine 0.84 Estimated GFR > 60.0 BUN/Creatinine Ratio 20.2 Glucose 165 H Calcium 9.4 Total Bilirubin 1.4 H AST 48 ALT 28 Alkaline Phosphatase 83 Total Creatine Kinase 328 H CK-MB (CK-2) 3.31 H CK-MB (CK-2) Rel Index 1.0 L Troponin I < 0.012 NT-Pro-B Natriuret Pep Total Protein 8.0 Albumin 4.7 Globulin 3.3 Albumin/Globulin Ratio 1.4 Lipase 41 COVID-19 PCR Negative his morning labs pending Assessment & Plan Assessment & Plan narrative: 1. CHF has improved with 1 dose of Lasix. Likely related to his atrial fib with a rapid ventricular response. Rate controlled now as is the reasonably good when he takes a pills. Unknown what will happen op on discharge but the he is well controlled now. 2. Atrial fibrillation rate 75-85 seemingly relatively stable on 50 mg metoprolol succinate daily. 3. Hypertension stable we gave him extra dose of 25 mg metoprolol succinate last night but the Toprol 50 once a should could manage this. 4. Alcoholism he has no evidence for any withdrawal at this time has no tremor CIWA score has been very low has not been given any Ativan accordingly. 5. Patient relates he was given some sort of seizure pills when he was in the hospital in [place] not been given since there is no details about the medication so nothing to be determined as far as that goes presumably he was on seizure medications around the time he was having DTs and withdrawal seizures Dr. Mejia to assume care tomorrow
[2019-12-29 09:46] LABS: Add Manual Diff / Slide Review NO; Basophils Absolute Auto 100 /uL (0-100); Basophils Percent Auto 0.9 % (0-2); Eosinophils Absolute Auto 100 /uL (0-450); Eosinophils Percent Auto 2.1 % (2-4); Hematocrit 39.1 % (41-53); Hemoglobin 13.1 g/dL (13.5-17.5); Lymphocytes Absolute Auto 1100 /uL (1100-4500); Lymphocytes Percent Auto 17.3 % (25-40); Mean Corpuscular HGB Conc 33.4 % (30-36); Mean Corpuscular Hemoglobin 31.4 PG (26-34); Monocytes Absolute Auto 400 /uL (0-900); Monocytes Percent Auto 5.6 % (3-14); Neutrophils Absolute Auto 4800 /uL (1500-7000); Neutrophils Percent Auto 74.1 % (50-75); Platelet Count 150 X10^3/uL (150-400); Red Blood Cell Count 4.16 X10^6/uL (4.5-5.9); Red Cell Distribution Width 15.4 % (11.6-14.8); White Blood Cell Count 6.5 X10^3/uL (4.5-11.0)
[2019-12-29 10:07] LABS: BUN Creatinine Ratio 21.4 (6-22); Blood Urea Nitrogen 22 mg/dL (9-20); Calcium 9.2 mg/dL (8.4-10.2); Carbon Dioxide 29 mmol/L (22-32); Chloride 102 mmol/L (98-107); Estimated Glomerular Filt Rate > 60.0 mL/min (>60); Glucose 116 mg/dL (80-110); HEMOLYSIS < 15 (0-50); Sodium 137 mmol/L (137-145)
--- NOTE | 2019-12-29 10:35 | PT.IIE ---
Current Diagnoses Alcohol dependence with withdrawal, unspecified (12/28/19) Medical History (Last Reviewed 12/28/19 @ 18:58 by Jose E Conroy MD) Alcohol abuse (Acute) Atrial fibrillation (Acute) Gout (Acute) HTN (hypertension) (Acute) Physical Therapy Inpatient Evaluation/Re-Eval M1 PT/OT-IP Prior Functional Status Start: 12/29/19 08:50 Freq: NEEDED Status: Active Protocol: Document 12/29/19 10:30 AW (Rec: 12/29/19 12:06 AW [id number]) Medical Review Prior Functional Status Medical History Reviewed Yes Communication WNL. Pt is an effective verbal communicator. Mobility and Gait Pt ambulates independently at baseline. He has had several falls over the past year related to alcohol dependency. He has had several hospitalizations and rehab stays this year but has been improving. His states he was able to drive to the commissary and complete a shopping trip on his own one week ago. Activities of Daily Living and IADL's Independent Social History Household Members spouse Living Arrangements House Number of Floors (Floors) Two Floors Number of Stairs To Enter/Railing? 3 EDNA at front door with wide bilateral rails. Once inside, pt regularly climbs 14 steps with R railing (and L railing also 1/[address]) to the bedroom level. He typically manages the stairs without relying on the railings. Home Environment Standard Height Toilet,Walk in Shower Employment Status Retired Additional Social History Comment Pt lives in [facility] with his spouse, Marya. M2 PT-IP Current Condition Start: 12/29/19 08:50 Freq: NEEDED Status: Active Protocol: Document 12/29/19 10:30 AW (Rec: 12/29/19 12:06 AW [id number]) Physical Therapy Current Condition Current Condition Evaluation Date 12/29/19 Treatment Diagnosis acute CHF; difficulty in walking; impaired activity tolerance Onset Date 12/28/19 M3 PT-IP Subjective Start: 12/29/19 08:50 Freq: NEEDED Status: Active Protocol: Document 12/29/19 10:30 AW (Rec: 12/29/19 12:06 AW [id number]) Subjective Physical Therapy Visit Type Type Initial Evaluation Visit Start Time 10:03 Visit Stop Time 10:29 Total Visit Minutes 26 Notes Pt's arrived 1/2 way through session and contributed to history. Physical Therapy Visit Comments Patient Comments Pt is willing to participate with PT Patient Goals Return home with improved breathing Therapy Pain Assessment Pain When Pain Assessed During Mobility Pain Present Pain Present Denied Pain M4 PT-IP Mobility and Gait Start: 12/29/19 08:50 Freq: NEEDED Status: Active Protocol: Document 12/29/19 10:30 AW (Rec: 12/29/19 12:06 AW [id number]) PT-Bed Mobility Assessment Supine to Sit Supine to Sit Standby Assistance Scooting Scooting to Edge of Bed Standby Assistance PT-Transfer Assessment Sit to and From Stand Sit to and from Stand Contact Guard Assistance Equipment Transfer Assistive Device None,Gait Belt Orthotic/Prosthetic Devices or Brace: No Transfers Transfer Destination Chair Transfer Technique pt ambulated without AD Transfer Ability Level of Assist Contact Guard Assistance Comments Mobility Comments Pt was lying in the bed as PT arrived. Supine BP was 96/67 HR 100 SpO2 95% on room air. He completed bed mobility SBA and sat EOB for assessment without need for UE support. Sitting BP was 88/60 HR 87. Pt stood at EOB requiring CGA for initial unsteadiness. He reported feeling unwell with awareness of irregular heart rate and requested to sit after 30 seconds. Pt was clearly dyspneic with increased work of breathing and increased RR. BP was 82/50 HR 88. Pt then stand step pivot transferred to the bedside chair CGA. After a short rest, he agreed to ambulate in the room for a total of 30 feet before needing to sit on the chair again with visible respiratory distress. BP was 85/61 HR 83 and SpO2 94%. Pt was positioned on the chair with call light and all needs in reach. His remained in the room. PT advised RN of need for chair alarm. Gait Assessment Gait Gait Assistance Required: Contact Guard Assist Distance (Feet) 30 Assistive Devices Assistive Device None,Gait Belt Orthotic/Prosthetic Devices or Brace: No Gait Deviations General Gait Pattern Antalgic,Decreased Stride Length,Decreased Feet Clearance Factors Limiting Gait Function Factors Limiting Gait Function Decreased Activity Tolerance, Decreased Strength,Poor Balance,Poor Safety Awareness, Respiratory Distress Comments Gait Comments Pt had posterior lean in initial standing and needed CGA for short bout ambulation in the room due to unsteady gait and dyspnea on exertion. Stair Climbing Assessment Comments Stair Climbing Comments Not assessed due to increased work of breathing with short bout ambulation. PT-Balance Assessment Sitting Balance and Reactions Static Sitting Balance Ability Good Dynamic Sitting Balance Ability Good Standing Balance and Reactions Static Standing Balance Ability Good Dynamic Standing Balance Ability Fair Device Used none M5 PT-IP Objective Assessments Start: 12/29/19 08:50 Freq: NEEDED Status: Active Protocol: Document 12/29/19 10:30 AW (Rec: 12/29/19 12:06 AW [id number]) Orientation Orientation/Cognition Level of Alertness Confusional State Orientation Name,Age,Place,Situation Safety Awareness Decreased Safety Awareness Memory Description Short Term Impaired Comments Pt not oriented to time. He was confused during this session and repeated himself without apparant awareness. Gross Range of Motion Lower Extremity ROM Assessment Within Functional Limits Strength Lower Extremity Strength Assessment Bilaterally Impaired Hip 4-/5 Knee 4/5 Ankle 4-/5 Coordination Assessment Gross Coordination Gross Coordination Impaired Assessment Foot Tapping Test Minimal Impairment Sensation Assessment Sensation Gross Sensation WNL M6 PT-IP Treatment Start: 12/29/19 08:50 Freq: NEEDED Status: Active Protocol: Document 12/29/19 10:30 AW (Rec: 12/29/19 12:06 AW [id number]) Physical Therapy Treatment Education Education Provided Safety Other Treatments Other Treatment Performed Provided ecuation on role of PT, plan of care, and home health services. M7 PT-IP Assessment and Plan Start: 12/29/19 08:50 Freq: NEEDED Status: Active Protocol: Document 12/29/19 10:30 AW (Rec: 12/29/19 12:06 AW [id number]) PT Summary Assessment and Plan Potential Rehabilitation Potential Good Status of Condition at Evaluation Evolving Summary Impairments Strength,Balance,Coordination, Cognition,Bed Mobility, Transfers,Gait,Activity Tolerance Assessment Summary Master is a 74 yo man with new onset CHF. He has history of a fib, alcohol dependence and frequent falls. He has had multiple hospitalizations and rehab stays this year including inpatient chemical dependency. He has been home for ~10 days and was able to complete a shopping trip independently one week ago. He is independent with all mobility at baseline. On evaluation, pt required CGA for all mobility secondary to dyspnea on exertion. His activity tolerance is severely limited. PT anticipates he will be safe to discharge home with assist once medically stable but would benefit from home health services to address activity tolerance and falls risk in the home. Goals Bed Mobility Goal Independent Transfer Goal Independent Gait Goal Independent Gait Distance 200 Other Goals - up/down 14 steps with R rail ascending SBA Days to Meet Goals 5 Frequency of Treatment Frequency Of Treatment Once a Day Treatment Plan Physical Therapy Treatment Plan Bed Mobility Training,Transfer Training,Gait Training, Therapeutic Exercise,Balance Retraining,Post Op Education, Discharge Planning, Neuromuscular Re-ed, Coordination Retraining Recommendations To Nursing Amount of Assist Needed 1 Person Assist Discharge Recommendations PT Discharge Recommendations Home with Assistance,Home Health Transportation Needs at Discharge Private Vehicle
--- NOTE | 2019-12-29 11:46 | PC.NURSE ---
Addendum entered by Kim Varghese R.N. 12/29/19 15:50: Call to listed Cell Phone, message left. Pt remains with confusion. Addendum entered by Kim Varghese R.N. 12/29/19 15:21: Pt with increased CIWA to 10. Call into Dr conroy as no Ativan order noted. SOB with activity remains. Pt is on RA, Spo2 97% but noted WOB increased. Original Note: Am shift Pt is working with PT this AM, increased SOB with activity. Mild non symptomatic hypotension. RA 96% at present. CIWA 4 this am. Mild tremor, HOFFMAN, and starting with increased sweating. Lungs remain dim, nonproductive cough. Afib on tele. Discussed case with dr Conroy, and plan to monitor for ETOH complications and potentially d/c Monday. 1030-Echo at beside.
[2019-12-29] MEDS: LORazepam 2 MG/ML INJ IV (16:30)
[2019-12-29] MEDS: LORazepam 1 MG TABLET PO ×2 (19:01→21:31)
[2019-12-30 03:00] VITALS: BP 132/87; PULSE 80; RESP 16; TEMP 36.8; O2SAT 96
--- NOTE | 2019-12-30 06:42 | PC.NURSE ---
Addendum entered by Tammy Hernandez R.N. 12/30/19 06:48: 2300 Received safe hand-off report. The patient is alert and oriented x4, denies all CIWA assessment questions. He is on room air, has a PIV that is saline locked and denies pain. Bed alarm is on. Original Note: 0400 Pt awakens from sleep disoriented to situation, out of bed. Pt re-oriented, denies CIWA assessment questions. Continue to monitor.
[2019-12-30 07:21] VITALS: BP 102/45; PULSE 76; RESP 16; TEMP 36.7; O2SAT 98
--- NOTE | 2019-12-30 07:41 | P.DS_ITS ---
History of Present Illness History of Present Illness Date Patient Seen: 12/30/19 Time Patient Seen: 07:41 Chief complaint: Fall, Hit Head, Back Pain, In Afib Narrative: Patient admitted through the ER this afternoon for several reasons 1 of which is congestive heart failure. Patient had admitted to feeling short of breath the last couple days but did not feel like it was of any consequence. He is not aware of having congestive heart failure in the past. Evaluation in the ER led to the conclusion that he did indeed have mild/early congestive heart failure given diuretics and admitted for observation and management. Additionally patient has atrial fibrillation has been ongoing. He had been prescribed metoprolol succinate 50 mg daily but he does take it very irregularly, unclear when last pill. He also was suggested to be on anticoagulation because of his atrial fibrillation but he has alcoholism and he has frequent falls and therefore is not a candidate for anticoagulation. Second problem was last night he fell down the stairs; did not lose con sciousness but scraped his left elbow, strained his back, and banged his head. Apparently has a history of a compression fracture in the lower thoracic spine. Significanly, patient has had major problems with alcohol withdrawals over the last several months. He has been at [facility] then transferred down to the [facility] for ongoing delirium tremens. During the course of all this he w as on a ventilator and did require fair amount sedation. Once he recovered, he was transferred to inpatient alcohol rehab center and he was there for approximately 5 weeks. He thinks he was discharged a week ago but he is not really clear. Apparently emergency room physician was told he got discharged last week. Since discharge he has had 20 oz of bourbon daily. Last drink was last night about 8:00 p.m.. Says he has had no alcohol today. He has not had ongoing tremor, no chest pain, no shortness of breath. He does feels his atrial fibrillation speed up at times and that is somewhat pr oblematic. Additionally, while he was here last time he had an echo that showed a significant reduction in ejection fraction and a follow-up was planned to be done as an outpatient but was never accomplished. This will be done here tomorrow for follow-up. Discharge Providers Provider Date of admission: 12/28/19 16:15 Discharge Date: 12/30/19 Primary care physician: Cris Reyna MD Consults: 12/28/19 17:41 Consult to Occupational Therapy Evaluate & Treat Comment: Physician Instructions: Evaluate and treat Consult to Physical Therapy Evaluate & Treat Comment: Physician Instructions: Evaluate and Treat 12/28/19 17:42 Consult to [facility] - Claim Specialist Routine Comment: Dr Conroy would like to check on rehab again Discharge provider: Cris Reyna MD Summary Hospital Course Discharge Diagnosis: 1. Acute congestive heart failure with preserved ejection fraction 2. Atrial fibrillation, type unknown 3. Hypertension, chronic 4. Alcoholism Hospital Course: Patient was admitted for diuresis as he came in with symptomatic CHF. This improved after 1 dose of Lasix. He was initially in atrial fibrillation with a rapid ventricular rate in the 150s. Patient does not take his metoprolol regularly at home and this was restarted and he returned to a controlled rate. Due to his alcoholism and history of frequent falls, he is not on anticoagulation. His home medication listed Eliquis but his is not on this and he will not be discharged on it. He was recently discharged from inpatient rehab for his alcoholism approximately 1 week ago and has started drinking again, CIWA protocols were closely followed throughout his hospital stay and he required only a minimal amount of Ativan. He did not go through withdrawals. On day of discharge, he is afebrile with stable vital signs throughout. Cleared by with patient's that he is actually not outpatient seizure medication. This was only used during his last inpatient hospitaliz ation when he was going through a serious alcohol withdrawal. Time spent on Discharge and Coordination of post-hospital care: 35 minutes Status at Discharge Cognitive/behavioral status at discharge: at baseline, oriented Functional status at discharge: independent ambulation Overall status at discharge: patient is progressing back to baseline Exam Vital Signs (past 8 hours): - 12/30/19 03:00 Temperature 98.3 F Pulse Rate 80 Respiratory Rate 16 Blood Pressure 132/87 Pulse Oximetry 96 Oxygen Delivery Method Room Air Oxygen Flow Rate 0 Narrative Exam Narrative: GENERAL: Alert and oriented, appearing stated age and in no acute distress. HEENT: Head normocephalic/atraumatic. Pupils equal, round, and reactive to light and accomodation. Extraocular muscles intact. Tympanic membranes clear. Nasal mucosa moist, septum midline. Oral mucosa moist, no lesions. Neck soft and supple, no lymphadenopathy. LUNGS: Clear to ausculation bilaterally, no wheezes, rhonchi or rales. CV: Normal S1 and S2 with regular rate and rhythm, no audible murmurs, rubs or gallops. ABDOMEN: Soft, non-tender, non-distended, no organomegaly. Positive bowel sounds. EXTREMITIES: No clubbing, cyanosis, or edema. NEURO: Cranial nerves II through XII grossly intact, no focal deficits. PSYCH: Alert and oriented x 3. SKIN: No concerning lesions. Objective Labs Result Diagrams: 12/30/19 08:09 12/30/19 08:09 Labs: Laboratory Results - last 24 hr 12/29/19 12/29/19 09:40 09:40 WBC 6.5 RBC 4.16 L Hgb 13.1 L Hct 39.1 L MCV 94.0 MCH 31.4 MCHC 33.4 RDW 15.4 H Plt Count 150 Neut % (Auto) 74.1 Lymph % (Auto) 17.3 L Taney % (Auto) 5.6 Eos % (Auto) 2.1 Baso % (Auto) 0.9 Neut # (Auto) 4800 Lymph # (Auto) 1100 Taney # (Auto) 400 Eos # (Auto) 100 Baso # (Auto) 100 Sodium 137 Potassium 4.0 Chloride 102 Carbon Dioxide 29 BUN 22 H Creatinine 1.03 Estimated GFR > 60.0 BUN/Creatinine Ratio 21.4 Glucose 116 H Calcium 9.2 Discharge Plan Discharge Plan Patient Disposition: Home Discharge orders & Medications Prescriptions: Continued metoprolol tartrate 50 mg tablet 50 mg PO BID RF: 0 Discontinued Eliquis 5 mg tablet 5 mg PO BID RF: 0 Follow up/Referrals: Cris Reyna MD [Primary Care Provider] - Diet/Activity/Treatments Diet: Regular Activity: As tolerated. Skin/Wound/Dressing Care Report to your healthcare provider any signs of infection, such as:: chills, fever and increased pain Visit Report/Discharge Packet Instructions: DI for Heart Failure, DI for Atrial Fibrillation, How to Prevent Falls Discharge Data Primary Care Provider: Cris Reyna
--- NOTE | 2019-12-30 07:45 | PC.NURSE ---
Addendum entered by Kacie Rodriguez R.N. 12/30/19 11:23: Patient is A/Ox4, denies headache or pain at this time. Refused Ibuprofen 600mg at this time. is bedside. Patient has tele on. No complaints or concerns at this time. Original Note: Patient OOB this morning. Would like to take a shower and go home. Reassured patient and patient back to bed. Alarm on. Patient is A/O x4. Denies headache, visual disturbances, dizziness or pain at this time. Saline locked R Hand. Lungs clear, denies SOB or increased WOB. Tele on. Denies chest pain. Pulses equal bilat. No edema noted. Patient voiding in urinal. SCD's removed d/t patient safety concerns. Seizure pad intact. No concerns or complaints at this time.
[2019-12-30 08:27] LABS: Add Manual Diff / Slide Review NO; Basophils Absolute Auto 0 /uL (0-100); Basophils Percent Auto 0.8 % (0-2); Eosinophils Absolute Auto 300 /uL (0-450); Eosinophils Percent Auto 5.8 % (2-4); Hematocrit 37.7 % (41-53); Hemoglobin 12.6 g/dL (13.5-17.5); Lymphocytes Absolute Auto 1100 /uL (1100-4500); Lymphocytes Percent Auto 18.1 % (25-40); Mean Corpuscular HGB Conc 33.4 % (30-36); Mean Corpuscular Hemoglobin 31.3 PG (26-34); Mean Corpuscular Volume 93.8 fL (80-100); Monocytes Absolute Auto 500 /uL (0-900); Monocytes Percent Auto 7.6 % (3-14); Neutrophils Absolute Auto 4100 /uL (1500-7000); Neutrophils Percent Auto 67.7 % (50-75); Platelet Count 121 X10^3/uL (150-400); Red Blood Cell Count 4.02 X10^6/uL (4.5-5.9); Red Cell Distribution Width 15.3 % (11.6-14.8)
[2019-12-30 08:36] LABS: Alanine Aminotransferase 20 IU/L (<50); Albumin 3.7 g/dL (3.5-5.0); Albumin Globulin Ratio 1.3 (1.0-2.8); Alkaline Phosphatase 63 U/L (38-126); Aspartate Aminotransferase 32 IU/L (17-59); BUN Creatinine Ratio 25.9 (6-22); Bilirubin Total 0.9 mg/dL (0.2-1.3); Blood Urea Nitrogen 22 mg/dL (9-20); Calcium 8.8 mg/dL (8.4-10.2); Carbon Dioxide 26 mmol/L (22-32); Chloride 105 mmol/L (98-107); Estimated Glomerular Filt Rate > 60.0 mL/min (>60); Globulin 2.8 g/dL (1.7-4.1); Glucose 105 mg/dL (80-110); HEMOLYSIS < 15 (0-50); Magnesium 1.9 mg/dL (1.6-2.3); Phosphorous 3.9 mg/dL (2.3-3.7); Potassium 3.6 mmol/L (3.4-5.1); Sodium 134 mmol/L (137-145); Total Protein 6.5 g/dL (6.3-8.2)
[2019-12-30 08:45] LABS: NT-proBNP (BNP-Adult 18+) 3000 pg/mL (<125)
--- NOTE | 2019-12-30 09:04 | CM.DPC ---
DCP/Assessment: Reviewed chart. Patient is a 74yr old male admitted to [facility] with Afib. PCP listed is Cris Reyna. Primary payor is 1)Medicare 2)[employer]. Met with patient this AM explained RECREATIONAL THERAPY AIDE role. Patient denies active detox at this time. Patient reports that he has stopped drinking on several occasions with minimal symptoms. Patient acknowledges that this year I had seizures related to ETOH. Patient reports that he was in treatment in [place] x4wks. Patient paid privately for inpatient treatment. Patient indicates that he was given ultimatum by spouse. Patient aware of local resources. RECREATIONAL THERAPY AIDE encouraged patient to reach out to support services. Patient denies the need for additional resources at this time. Patient reports that he would like to go home today if possible. Notified patient that provider has not discharged yet. Patient scheduled to work with therapy today. P: Home when medically stable. Patient acknowledges ETOH abuse. Patient reports that he has needed resources. JEROME Cardenas Discharge Planning/Care Management CM Discharge Assessment Start: 12/30/19 08:53 Freq: Status: Active Protocol: Document 12/30/19 08:53 LUZ (Rec: 12/30/19 09:03 S [id number]) Discharge Planning Assessment Assigned Hotel Operation Manager JEROME Cardenas Contact Information Marya Porter (spouse ph# [phone]) Advance Directives? Yes History Provided By Patient,Medical Record Prior Living Arrangements House Household Members spouse Type of transporation used prior to Drives own vehicle admit Independent with ADL's Yes Is patient alert and oriented? Yes Caregiver for Another No Comment Patient with h/o etoh abuse. Recently got out of treatment in [place]. Patient has needed resources and acknowledges that he knows what he has to do. Discharge Plan Home Transportation Arrangement Family Referrals Initiated Other Additional Comment Resources offered for ETOH, patient reports having the information needed. RECREATIONAL THERAPY AIDE encouraged AA meetings via virtual methods. Whiteboard Updated in Patient Room with Yes name and ext. # of Hotel Operation Manager Review Status In Process Next Review Type Continued Stay Review
--- NOTE | 2019-12-30 09:26 | OT.IP.EVAL ---
Current Diagnoses Alcohol dependence with withdrawal, unspecified (12/28/19) Past Medical History (Last Reviewed 12/28/19 @ 18:58 by Jose E Conroy MD) Alcohol abuse Atrial fibrillation Gout HTN (hypertension) Occupational Therapy Inpatient Evaluation/Re-Eval M1 PT/OT-IP Prior Functional Status Start: 12/30/19 09:36 Freq: NEEDED Status: Active Protocol: Document 12/30/19 08:48 [facility] (Rec: 12/30/19 09:57 [facility] [id number]) Medical Review Prior Functional Status Medical History Reviewed Yes Communication WNL. Pt is an effective verbal communicator. Mobility and Gait Pt ambulates independently at baseline. He has had several falls over the past year related to alcohol dependency. He has had several hospitalizations and rehab stays this year but has been improving. His states he was able to drive to the commissary and complete a shopping trip on his own one week ago. Activities of Daily Living and IADL's Independent, drove as well. Social History Household Members spouse Living Arrangements House Number of Floors (Floors) Two Floors Number of Stairs To Enter/Railing? 3 EDNA at front door with wide bilateral rails. Once inside, pt regularly climbs 14 steps with R railing (and L railing also 1/[address]) to the bedroom level. He typically manages the stairs without relying on the railings. Home Environment Standard Height Toilet,Walk in Shower Employment Status Retired Additional Social History Comment Pt lives in [place] with his spouse, Marya. M2 OT-IP Current Condition Start: 12/30/19 09:36 Freq: Status: Active Protocol: Document 12/30/19 08:48 [facility] (Rec: 12/30/19 09:57 [facility] [id number]) Occupational Therapy Current Condition Current Condition Evaluation Date 12/30/19 Treatment Diagnosis Acute CHF Diagnosis Onset Date 12/28/19 M3 OT- IP Subjective and Pain Start: 12/30/19 09:36 Freq: Status: Active Protocol: Document 12/30/19 08:48 [facility] (Rec: 12/30/19 09:57 [facility] [id number]) OT- Subjective Occupational Therapy Visit Type Type Initial Evaluation Visit Start Time 08:48 Visit Stop Time 09:26 Total Visit Minutes 38 Occupational Therapy Visit Comments Patient Comments Pt wanting to shower, pt's present at the end of the session. Patient/Caregiver Goals To go home. OT Pain Assessment Pain When Pain Assessed At Rest Pain Present Pain Present Denied Pain M4 OT- IP ADL's Start: 12/30/19 09:36 Freq: Status: Active Protocol: Document 12/30/19 08:48 [facility] (Rec: 12/30/19 09:57 [facility] [id number]) OT XET-[facility] General Evaluation Self-Feeding Ability Independent OT ADL-Grooming General Evaluation Grooming Ability Independent Areas Needing Assistance Retrieving/Set-up of Grooming Items OT ADL-Oral Care Comments Oral Care Comments Nor performed. OT ADL-Dressing General Eval Upper Body Dressing Ability Independent Lower Body Dressing Ability Contact Guard Assistance Comments OT Dressing Comments CGA to help thread right pant leg into jeans while standing. Pt needing reminders best to sit for LB dressing needs for safety. OT ADL-Toileting General Evaluation Toileting Ability Independent Comments OT Toileting Comments VC for completeness to wipe. OT ADL-Bathing Bathing Type Bathing Type Shower General Evaluation Bathing Ability Minimal Assistance Areas Needing Assistance Wash/Dry Back Comments OT Bathing Comments Pt mainly just needing assist to wash/dry his back. Pt getting tired while standing during showeriing and educated to sit would be best. Suggested to pt and to get a shower chair, information sheet given of equipment places around. M5 OT- IP IADL's Start: 12/30/19 09:36 Freq: Status: Active Protocol: Document 12/30/19 08:48 [facility] (Rec: 12/30/19 09:57 [facility] [id number]) OT-Instrumental Activities of Daily Living Home Safety Awareness Awareness of Need for Assistance at Home Good Awareness Ability to Problem Solve Emergency Able to Problem Solve Situations Home Safety Comments Pt able to answer all home safety questionnaire with 100% accuracy. Medication Management Medication Management Comments Pt states does not take any medications prior. Money Management Money Management No Deficits Identified Meal Preparation Meal Preparation Comments Due to pt's decreased activity tolerance suggested would be best if to assist at this time. Bulk Receiver Bulk Receiver Comments Due to pt's decreased activity tolerance suggested would be best if to assist at this time. M6 OT- IP Functional Cognition Start: 12/30/19 09:36 Freq: Status: Active Protocol: Document 12/30/19 08:48 [facility] (Rec: 12/30/19 09:57 [facility] [id number]) Cognitive Factors Limiting Selfcare Function Cognitive Ability Level of Alertness Alert Patient Orientation Name,Place,Situation Attention Span Ability Capable of Focused Attention, Capable of Sustained Attention Ability to Follow Commands Able to Follow Multi-Step Commands Memory Description No Deficits Noted Safety Awareness Underestimates Need for Assistance Problem Solving Ability No deficits Noted Cognitive Comments Cognitive Assessment Comments Pt mainly just needing cues for safeaty awareness now that he easily gets tired to sit for LB dressing needs, obtain a shower chair for showers , and take his time and incorporate energy conservation strategies. Pt scored 105sec on [place] MAking Part B which implies 40% for his age group and implies mild deficits with visual attention, task switching, speed of processing, mental flexibility, and executive function. Suggested to have drive initially until feeling better. OT- Vision and Hearing OT- Hearing Assessment OT- Hearing Assessment WFL OT- Vision Assessment Visual Acuity Glasses For Reading Visual Attentiveness WFL M7 OT- IP Mobility and Balance Start: 12/30/19 09:36 Freq: Status: Active Protocol: Document 12/30/19 08:48 [facility] (Rec: 12/30/19 09:57 [facility] [id number]) OT- Bed Mobility Assessment Rolling Type of Rolling Roll to Left Level of Assistance Independent Supine to Sit Supine to Sit Assist Independent Scooting Scooting to Edge of Bed Standby Assistance OT-Transfer Assessment Sit to and From Stand Sit to and from Stand Standby Assistance Transfers Transfer Ability Standby Assistance,Contact Guard Assistance Technique Transfer Destination Bed,Chair,Shower Stall,Toilet Transfer Technique Stand Step Pivot Devices Transfer Assistive Devices None Comments Mobility Comments Pt a little unsteady on his feet initially as just getting out of bed for the first time this morning. Pt close SBA and needing CGA to step ove the threshold of the shower. OT- Balance Assessment Sitting Balance and Reactions Static Sitting Balance Ability Normal Dynamic Sitting Balance Ability Normal Standing Balance and Reactions Static Standing Balance Ability Good Dynamic Standing Balance Ability Fair M8 OT- IP Objective Assessments Start: 12/30/19 09:36 Freq: Status: Active Protocol: Document 12/30/19 08:48 [facility] (Rec: 12/30/19 09:57 [facility] [id number]) OT Gross Range of Motion Upper Extremity Range of Motion ROM Impairments BUE shoulder flexion 0-100. OT Strength Comments Strength Comments WFL for ALD and transfer needs . OT- Coordination Assessment Comments Coordination Comments Pt states has difficulty with pt's buckle at times. OT-Muscle Tone Assessment Muscle Tone WNL Yes M9 OT- IP Assessment and Plan Start: 12/30/19 09:36 Freq: Status: Active Protocol: Document 12/30/19 08:48 [facility] (Rec: 12/30/19 09:57 [facility] [id number]) OT Summary Assessment and Plan Potential Rehabilitation Potential Good Analytic Complexity at Evaluation Low Summary OT Impairments Functional Mobility,Dressing, Toileting,Bathing,Shower Transfers,Activity Tolerance Progress Towards Goals Progressing Toward Goals Assessment Summary Pt here due to acute CHF, fall which he hit his head . Pt main barriers are steps, decreased activity tolerance and safety awareness and needing cues to incorporate energy conservation techniques for all needs. Pt to go home with to assist. Goals Self-Feeding Goal Independent Grooming Goal Independent Dressing Goal Independent Toileting Goal Independent Bathing Goal Independent Toilet Transfer Goal Independent Shower Transfer Goal Independent Patient/Caregiver Education Goal Demonstrate Energy Conservation and Pacing OT-Other Goals Pt to increased overall safety awarness to incorporate energy conservation strategies at all times for Adl and functional mobility needs. Days to Meet Goals 1 Frequency of Treatment Frequency Of Treatment Once a Day Treatment Plan OT Treatment Plan ADL Training,Functional Cognition Training,Functional Mobility,Patient/Family Education,Discharge Planning Discharge Recommendations OT Discharge Recommendations Home with Assistance Home Equipment Needs shower chair Transportation Needs at Discharge Private Vehicle
[2019-12-30] MEDS: FOLIC ACID 1 MG TABLET PO (10:20)
[2019-12-30] MEDS: MULTIVITAMIN 1 TABLET 1 TAB PO (10:21)
[2019-12-30] MEDS: METOPROLOL ER 50 MG TABLET PO (10:21)
[2019-12-30] MEDS: SODIUM CHLORIDE 0.9% FLUSH 10 ML IV (10:23)
[2019-12-30] MEDS: THIAMINE 100 MG TABLET PO (10:23)
[2019-12-30 11:46] VITALS: BP 114/66; PULSE 81; RESP 16; TEMP 36.6; O2SAT 96
--- NOTE | 2019-12-30 13:06 | PT.IPTN ---
Current Diagnoses Alcohol dependence with withdrawal, unspecified (12/28/19) Physical Therapy Treatment Note M2 PT-IP Current Condition Start: 12/29/19 08:50 Freq: NEEDED Status: Active Protocol: Document 12/29/19 10:30 [facility] (Rec: 12/29/19 12:06 [facility] [id number]) Physical Therapy Current Condition Current Condition Evaluation Date 12/29/19 Treatment Diagnosis acute CHF; difficulty in walking; impaired activity tolerance Onset Date 12/28/19 M3 PT-IP Subjective Start: 12/29/19 08:50 Freq: NEEDED Status: Active Protocol: Document 12/30/19 12:54 [facility] (Rec: 12/30/19 13:06 [facility] [id number]) Subjective Physical Therapy Visit Type Type Treatment Note Visit Start Time 12:38 Visit Stop Time 12:53 Total Visit Minutes 15 Notes Pt's present throughout session Physical Therapy Visit Comments Patient Comments Pt is willing to participate with PT Therapy Pain Assessment Pain When Pain Assessed At Rest Pain Present Pain Present Denied Pain M4 PT-IP Mobility and Gait Start: 12/29/19 08:50 Freq: NEEDED Status: Active Protocol: Document 12/30/19 12:54 [facility] (Rec: 12/30/19 13:06 [facility] [id number]) PT-Transfer Assessment Sit to and From Stand Sit to and from Stand Standby Assistance Equipment Transfer Assistive Device None,Gait Belt Orthotic/Prosthetic Devices or Brace: No Transfers Transfer Destination Chair Transfer Technique pt ambulated without AD Transfer Ability Level of Assist Standby Assistance Comments Mobility Comments Pt was dressed and in bed when PT arrived. He had worked with OT for a shower earlier. With HOB flat, pt completed all bed mobility SBA and sat EOB. BP was 124/78. Pt stood from the bed SBA and donned his mask. He transferred to the chair and donned his shoes independently. No initial unsteadiness was observed. Pt ambulated in the halls without AD SBA 120 feet and then completed stair training. During stair practice, pt began to noticably lean to the left side and caught his foot one time but was able to recover without therapist assist. On return to the room, pt continued to lean to the left and demonstrated mildly ataxic gait with LOB x 2 but did not require assist for balance recovery. Pt returned to the room and sat in the chair SBA. Pt's remained in the room. Gait Assessment Gait Gait Assistance Required: Standby Assistance Distance (Feet) 200 Assistive Devices Assistive Device None,Gait Belt Orthotic/Prosthetic Devices or Brace: No Gait Deviations General Gait Pattern Antalgic,Ataxic,Decreased Stride Length,Decreased Feet Clearance,Lateral Trunk Lean, Narrow Based Gait Factors Limiting Gait Function Factors Limiting Gait Function Decreased Activity Tolerance, Decreased Strength, Incoordination,Poor Balance, Poor Safety Awareness, Respiratory Distress Comments Gait Comments Gait was unsteady but required no therapist assist to recover from LOB x 2. Stair Climbing Assessment Evaluation Level of Assist On Stairs Standby Assistance Devices Stair Climbing Assistive Devices Right Railing Technique/Endurance Stair Climbing Direction Ascend and Descend Stair Climbing Technique Step Over Step Number of Steps Climbed 25 Stair Climbing Set # Repetitions (reps) 1 Comments Stair Climbing Comments Pt completed all ICU stairs with unilateral rail SBA. He caught his toe on one step going up but recovered without assist. PT-Balance Assessment Sitting Balance and Reactions Static Sitting Balance Ability Good Dynamic Sitting Balance Ability Good Standing Balance and Reactions Static Standing Balance Ability Good Dynamic Standing Balance Ability Fair Device Used none M5 PT-IP Objective Assessments Start: 12/29/19 08:50 Freq: NEEDED Status: Active Protocol: Document 12/29/19 10:30 [facility] (Rec: 12/29/19 12:06 [facility] [id number]) Orientation Orientation/Cognition Level of Alertness Confusional State Orientation Name,Age,Place,Situation Safety Awareness Decreased Safety Awareness Memory Description Short Term Impaired Comments Pt not oriented to time. He was confused during this session and repeated himself without apparant awareness. Gross Range of Motion Lower Extremity ROM Assessment Within Functional Limits Strength Lower Extremity Strength Assessment Bilaterally Impaired Hip 4-/5 Knee 4/5 Ankle 4-/5 Coordination Assessment Gross Coordination Gross Coordination Impaired Assessment Foot Tapping Test Minimal Impairment Sensation Assessment Sensation Gross Sensation WNL M6 PT-IP Treatment Start: 12/29/19 08:50 Freq: NEEDED Status: Active Protocol: Document 12/30/19 12:54 [facility] (Rec: 12/30/19 13:06 AW [id number]) Physical Therapy Treatment Education Education Provided Safety M7 PT-IP Assessment and Plan Start: 12/29/19 08:50 Freq: NEEDED Status: Active Protocol: Document 12/30/19 12:54 [facility] (Rec: 12/30/19 13:06 AW [id number]) PT Summary Assessment and Plan Potential Rehabilitation Potential Good Status of Condition at Evaluation Evolving Summary Impairments Strength,Balance,Coordination, Cognition,Bed Mobility, Transfers,Gait,Activity Tolerance Progress Towards Goals Progressing Toward Goals Assessment Summary Master was able to tolerate significant increase in activity today without increase in work of breathing. He is unsteady on his feet especially with increased distance but this is consistent with his baseline. PT recommends an assistive device but pt refuses. Pt would certainly benefit from home health therapy to mitigate falls risk. Goals Bed Mobility Goal Independent Transfer Goal Independent Gait Goal Independent Gait Distance 200 Other Goals - up/down 14 steps with R rail ascending SBA Days to Meet Goals 5 Frequency of Treatment Frequency Of Treatment Once a Day Treatment Plan Physical Therapy Treatment Plan Bed Mobility Training,Transfer Training,Gait Training, Therapeutic Exercise,Balance Retraining,Post Op Education, Discharge Planning, Neuromuscular Re-ed, Coordination Retraining Recommendations To Nursing Amount of Assist Needed 1 Person Assist Discharge Recommendations PT Discharge Recommendations Home with Assistance,Home Health Transportation Needs at Discharge Private Vehicle
== END 2019-12-30 14:45 | disposition home or self-care (01) | DRG 293 ==
LOC: ED 16:13 → AC 16:16
PROVIDERS: Admitting Provider Family Medicine; Emergency Provider Emergency Medicine; PCP Student in an Organized Health Care Education/Training Program; Referring Provider Emergency Medicine; Visit Provider Student in an Organized Health Care Education/Training Program
DX: I11.0 Hypertensive heart disease with heart failure (principal); I50.33 Acute on chronic diastolic (congestive) heart failure; I48.91 Unspecified atrial fibrillation; F10.20 Alcohol dependence, uncomplicated; R29.6 Repeated falls; W10.9XXA Fall (on) (from) unspecified stairs and steps, initial encounter; Z87.891 Personal history of nicotine dependence; Z23 Encounter for immunization
CPT/HCPCS: 36415; 70450; 71045; 72100; 72125; 80048; 80053; 82550; 82553; 83690; 83735; 83880; 84100; 84484; 85025; 85610; 85730; 87635; 90471; 90662; 93005; 93306; 96374; 96375; 97116; 97162; 97165; 97535; 99285; J1940; J2060

== ENCOUNTER 2020-01-20 23:11 | Emergency (ER) | payer MEDICARE, OTHER, SELFPAY ==
[2019-07-03 21:02] VITALS: PULSE 98; RESP 16; O2SAT 98
[2019-12-28 16:42] VITALS: BMI 22.8
[2020-01-20 23:15] VITALS: BP 176/105; PULSE 115; RESP 20; TEMP 36.8; O2SAT 97; BMI 24.3
[2020-01-20 23:19] VITALS: PULSE 118; RESP 14; O2SAT 99
[2020-01-20 23:30] VITALS: BP 155/93; PULSE 107; RESP 19; O2SAT 99
[2020-01-20 23:38] LABS: Add Manual Diff / Slide Review NO; Basophils Absolute Auto 100 /uL (0-100); Basophils Percent Auto 1.2 % (0-2); Eosinophils Absolute Auto 100 /uL (0-450); Eosinophils Percent Auto 0.9 % (2-4); Hematocrit 40.3 % (41-53); Hemoglobin 13.2 g/dL (13.5-17.5); Lymphocytes Absolute Auto 1000 /uL (1100-4500); Lymphocytes Percent Auto 17.4 % (25-40); Mean Corpuscular HGB Conc 32.9 % (30-36); Mean Corpuscular Hemoglobin 31.7 PG (26-34); Mean Corpuscular Volume 96.5 fL (80-100); Monocytes Absolute Auto 500 /uL (0-900); Monocytes Percent Auto 9.3 % (3-14); Neutrophils Absolute Auto 4200 /uL (1500-7000); Neutrophils Percent Auto 71.2 % (50-75); Platelet Count 149 X10^3/uL (150-400); Red Blood Cell Count 4.17 X10^6/uL (4.5-5.9); Red Cell Distribution Width 16.6 % (11.6-14.8); White Blood Cell Count 5.8 X10^3/uL (4.5-11.0)
[2020-01-20 23:41] LABS: Prothrombin Time 11.6 SECONDS (10.1-12.7)
[2020-01-20] MEDS: SODIUM CHLORIDE 0.9% 1,000 ML 1000 ML IV (23:43)
[2020-01-20 23:55] LABS: Alanine Aminotransferase 29 IU/L (<50); Albumin 4.6 g/dL (3.5-5.0); Albumin Globulin Ratio 1.4 (1.0-2.8); BUN Creatinine Ratio 22.4 (6-22); Bilirubin Total 1.6 mg/dL (0.2-1.3); Blood Urea Nitrogen 22 mg/dL (9-20); Calcium 9.2 mg/dL (8.4-10.2); Carbon Dioxide 22 mmol/L (22-32); Chloride 104 mmol/L (98-107); Creatine Kinase 180 U/L (55-170); Estimated Glomerular Filt Rate > 60.0 mL/min (>60); Globulin 3.3 g/dL (1.7-4.1); Glucose 78 mg/dL (80-110); Sodium 138 mmol/L (137-145); Total Protein 7.9 g/dL (6.3-8.2)
[2020-01-20 23:58] LABS: HEMOLYSIS 111 (0-50)
[2020-01-21] VITALS (20 sets, daily range): BP systolic 107–170; BP diastolic 66–105; PULSE 89–129; RESP 12–24; O2SAT 91–98
[2020-01-21 00:03] LABS: Aspartate Aminotransferase 61 IU/L (17-59); Potassium 4.8 mmol/L (3.4-5.1)
[2020-01-21 00:05] LABS: Alkaline Phosphatase 135 U/L (38-126)
[2020-01-21 00:07] LABS: NT-proBNP (BNP-Adult 18+) 650 pg/mL (<125); Troponin I < 0.012 ng/mL (0.01-0.034)
[2020-01-21 00:10] LABS: CKMB % Relative Index 1.4 % (1.5-5.0); Creatine Kinase MB 2.56 ng/mL (<2.37)
[2020-01-21 00:13] LABS: Procalcitonin < 0.05 ng/mL (<0.5)
--- NOTE | 2020-01-21 00:16 | ED_ITS ---
HPI - Arrhythmia/Palpitations General Chief Complaint: Arrhythmia/Palpitations Stated Complaint: weakness/ afib Time Seen by Provider: 01/20/20 23:15 Source: patient and EMS Mode of arrival: EMS Limitations: no limitations History of Present Illness HPI narrative: Former smoker with history of CHF and chronic AFib presents by EMS because he feels palpitations and a bit fatigued and has so over the course of the day. He states he drinks 4-5 alcoholic beverages a day and has not had any since yesterday. He has had withdrawal type symptoms before but never seizures. He denies any chest pain and is not dizzy or lightheaded. Historically he has been prescribed metoprolol but takes it only sparingly. He does not take any anticoagulation. He denies any fever chills. He denies any nausea, vomiting or diarrhea. MD complaint: rapid heart beat, heart racing, skipped beats and palpitations Onset (ago): hour(s) Duration: constant Severity: moderate Context: occurred during rest Arrhythmia history: atrial fibrillation Associated symptoms: anxiety Related Data Previous Rx's Medication Instructions Recorded chlordiazepoxide HCl See Rx Instructions .ROUTE 01/21/20 .COMPLEX #32 cap metoprolol tartrate 50 mg PO BID #60 tab 01/21/20 Allergies Allergy/AdvReac Type Severity Reaction Status Date / Time amoxicillin [AMOXICILLIN] Allergy Severe SWOLLEN JAW Verified 01/20/20 23:32 clindamycin [CLINDAMYCIN] AdvReac Severe C-DIFF Verified 01/20/20 23:32 Review of Systems Constitutional Constitutional: Denies chills, Denies fatigue, Denies fever(s), Denies frequent falls, Denies lethargy and Denies weakness Eyes Eyes: Denies change in vision, Denies eye discharge, Denies irritation and Denies loss of vision ENT Ears, Nose, Mouth, and Throat: Denies change in voice, Denies dizziness, Denies neck pain, Denies sore throat and Denies throat swelling Cardiovascular Cardiovascular: Denies chest pain, Reports irregular heart rhythm, Denies lightheadedness, Reports palpitations, Denies dyspnea, Denies dyspnea on exertion and Denies orthopnea Respiratory Respiratory: Denies cough, Denies dyspnea, Denies dyspnea on exertion and Denies wheezing Gastrointestinal Gastrointestinal: Denies abdominal pain, Denies change in bowel habits, Denies diarrhea, Denies nausea and Denies vomiting Musculoskeletal Musculoskeletal: Denies neck pain and Denies numbness Integumentary/Breasts Skin/Breast: Denies pruritus, Denies erythema, Denies rash and Denies wounds Neurologic Neurologic: Denies behavioral changes, Denies confusion, Denies dizziness, Denies frequent falls, Denies loss of vision, Denies numbness, Reports tremor(s) and Denies weakness Comments: anxious Psychiatric Psychiatric: Denies anxiety, Denies behavioral changes, Denies confusion, Denies depression, Denies homicidal ideation and Denies suicidal ideation Endocrine Endocrine: Denies fatigue, Denies flushing and Reports palpitations Hematologic/Lymphatic Hematologic/Lymphatic: Denies easy bruising Allergic/Immunologic Allergic/Immunologic: Denies urticaria, Denies throat swelling and Denies wheezing Patient History Medical History (Updated 01/21/20 @ 03:44 by Justin Rasmussen DO) Alcohol abuse Atrial fibrillation Gout HTN (hypertension) Social History marital status: household members: spouse occupational status: previously employed Smoking Status: Former smoker alcohol intake: current substance use type: does not use Smoking Status: Former smoker alcohol intake frequency: 3 or more drinks per day Alcohol type: hard liquor Substance Use Type: does not use Exam Narrative Exam Narrative: GENERAL: [74] year old patient appears stated age. Well- nourished, well-developed patient, in mild distress. A bit anxious HEAD: Atraumatic. Normocephalic. EYES: Pupils equal round and reactive. Extraocular motions intact. No scleral icterus. No injection or drainage. ENT: Nose without bleeding, purulent drainage. Throat without erythema, tonsillar hypertrophy or exudate. Airway patent. NECK: Trachea midline. Non tender CARDIOVASCULAR: Tachycardic and irregular rhythm without murmurs, gallops, or rubs. RESPIRATORY: Clear to auscultation. Breath sounds equal bilaterally. No wheezes, rales, or rhonchi. GASTROINTESTINAL: Abdomen soft, non-tender, nondistended. EXTREMITIES: No edema or joint tenderness. BACK: Nontender without deformity or crepitance. No flank tenderness. NEURO: AOx3. He does have some visibile tremor while at rest SKIN: No rash or erythema of visible areas Initial Vital Signs Initial Vital Signs: Vital Signs Temperature 98.2 F 01/20/20 23:15 Pulse Rate 115 H 01/20/20 23:15 Respiratory Rate 20 01/20/20 23:15 Blood Pressure 176/105 H 01/20/20 23:15 Pulse Oximetry 97 01/20/20 23:15 Course Orders Ordered: ED Orders 01/20/20 23:22 Complete Blood Count AUTO DIFF Stat Comprehensive Metabolic Panel Stat Ethanol (ETOH) Stat NT-proBNP (BNP-Adult 18+) Stat Procalcitonin Stat Prothrombin Time INR Stat Troponin & CK Cardiac Panel Stat 01/21/20 EKG-12 Lead Stat EKG-12 Lead Stat 01/21/20 01:18 COVID19 Stat Discontinued Medications Sodium Chloride (Normal Saline 0.9%) 1,000 mls @ 1,000 mls/hr IV BOLUS ONE Stop: 01/21/20 00:24 Last Infusion: 01/21/20 00:39 Dose: 0 mls/hr Documented by: Admin: 01/20/20 23:43 Dose: 1,000 mls/hr Documented by: NUSRAT Metoprolol Tartrate (Metoprolol Tartrate 5 Mg/5 Ml Inj) 5 mg IV NOW ONE Stop: 01/21/20 01:13 Last Admin: 01/21/20 01:26 Dose: 5 mg Documented by: NUSRAT Metoprolol Tartrate (Metoprolol Ir 25 Mg Tablet) 50 mg PO NOW ONE Stop: 01/21/20 01:13 Last Admin: 01/21/20 01:26 Dose: 50 mg Documented by: NUSRAT Phenobarbital (Phenobarbital 65 Mg/Ml Vial) 260 mg IV NOW ONE Stop: 01/21/20 01:36 Last Admin: 01/21/20 01:47 Dose: 260 mg Documented by: NUSRAT Vital Signs Vital signs: Vital Signs - 8 hr 01/20/20 23:15 01/20/20 23:19 01/20/20 23:30 Temperature 98.2 F Pulse Rate 115 H 118 H 107 H Respiratory Rate 20 14 19 Blood Pressure 176/105 H 155/93 H Pulse Oximetry 97 99 99 01/21/20 00:00 01/21/20 00:30 01/21/20 01:00 Temperature Pulse Rate 129 H 109 H 103 H Respiratory Rate 18 17 Blood Pressure 140/88 166/88 H 170/105 H Pulse Oximetry 96 98 97 01/21/20 01:30 01/21/20 02:00 Temperature Pulse Rate 99 H 119 H Respiratory Rate 24 19 Blood Pressure 140/89 107/71 Pulse Oximetry 91 MDM - Arrhythmia/Palpitations Lab Data Result diagrams: 01/20/20 23:22 01/20/20 23:22 Labs: Lab Results 01/20/20 01/20/20 01/20/20 Range/Units 23:22 23:22 23:22 WBC 5.8 (4.5-11.0) X10^3/uL RBC 4.17 L (4.5-5.9) X10^6/uL Hgb 13.2 L (13.5-17.5) g/dL Hct 40.3 L (41-53) % MCV 96.5 (80-100) fL MCH 31.7 (26-34) PG MCHC 32.9 (30-36) % RDW 16.6 H (11.6-14.8) % Plt Count 149 L (150-400) X10^3/uL Neut % (Auto) 71.2 (50-75) % Lymph % (Auto) 17.4 L (25-40) % [place] % (Auto) 9.3 (3-14) % Eos % (Auto) 0.9 L (2-4) % Baso % (Auto) 1.2 (0-2) % Neut # (Auto) 4200 (6789-7303) /uL Lymph # (Auto) 1000 L (0374-5831) /uL [place] # (Auto) 500 (0-900) /uL Eos # (Auto) 100 (0-450) /uL Baso # (Auto) 100 (0-100) /uL PT 11.6 (10.1-12.7) SECONDS INR 1.0 (0.9-1.3) Sodium (137-145) mmol/L Potassium (3.4-5.1) mmol/L Chloride (98-107) mmol/L Carbon Dioxide (22-32) mmol/L BUN (9-20) mg/dL Creatinine (0.66-1.25) mg/dL Estimated GFR (>60) mL/min BUN/Creatinine Ratio (6-22) Glucose (80-110) mg/dL Calcium (8.4-10.2) mg/dL Total Bilirubin (0.2-1.3) mg/dL AST (17-59) IU/L ALT (<50) IU/L Alkaline Phosphatase (38-126) U/L Total Creatine Kinase (55-170) U/L CK-MB (CK-2) (<2.37) ng/mL CK-MB (CK-2) Rel Index (1.5-5.0) % Troponin I (0.01-0.034) ng/mL NT-Pro-B Natriuret Pep (<125) pg/mL Total Protein (6.3-8.2) g/dL Albumin (3.5-5.0) g/dL Globulin (1.7-4.1) g/dL Albumin/Globulin Ratio (1.0-2.8) Procalcitonin (<0.5) ng/mL Ethyl Alcohol 43 H ( - 10) mg/dL COVID-19 PCR (Negative) 01/20/20 01/20/20 01/21/20 Range/Units 23:22 23:22 01:18 WBC (4.5-11.0) X10^3/uL RBC (4.5-5.9) X10^6/uL Hgb (13.5-17.5) g/dL Hct (41-53) % MCV (80-100) fL MCH (26-34) PG MCHC (30-36) % RDW (11.6-14.8) % Plt Count (150-400) X10^3/uL Neut % (Auto) (50-75) % Lymph % (Auto) (25-40) % [place] % (Auto) (3-14) % Eos % (Auto) (2-4) % Baso % (Auto) (0-2) % Neut # (Auto) (8750-1400) /uL Lymph # (Auto) (5068-6146) /uL [place] # (Auto) (0-900) /uL Eos # (Auto) (0-450) /uL Baso # (Auto) (0-100) /uL PT (10.1-12.7) SECONDS INR (0.9-1.3) Sodium 138 (137-145) mmol/L Potassium 4.8 (3.4-5.1) mmol/L Chloride 104 (98-107) mmol/L Carbon Dioxide 22 (22-32) mmol/L BUN 22 H (9-20) mg/dL Creatinine 0.98 (0.66-1.25) mg/dL Estimated GFR > 60.0 (>60) mL/min BUN/Creatinine Ratio 22.4 H (6-22) Glucose 78 L (80-110) mg/dL Calcium 9.2 (8.4-10.2) mg/dL Total Bilirubin 1.6 H (0.2-1.3) mg/dL AST 61 H (17-59) IU/L ALT 29 (<50) IU/L Alkaline Phosphatase 135 H (38-126) U/L Total Creatine Kinase 180 H (55-170) U/L CK-MB (CK-2) 2.56 H (<2.37) ng/mL CK-MB (CK-2) Rel Index 1.4 L (1.5-5.0) % Troponin I < 0.012 (0.01-0.034) ng/mL NT-Pro-B Natriuret Pep 650 H (<125) pg/mL Total Protein 7.9 (6.3-8.2) g/dL Albumin 4.6 (3.5-5.0) g/dL Globulin 3.3 (1.7-4.1) g/dL Albumin/Globulin Ratio 1.4 (1.0-2.8) Procalcitonin < 0.05 (<0.5) ng/mL Ethyl Alcohol ( - 10) mg/dL COVID-19 PCR Negative (Negative) MDM Narrative Medical decision making narrative: Patient EKGs and prior notes would suggest he is chronically in AFib, but patient states it is paroxysmal. He is not a great historian and not a candidate for cardioversion in the ED given lack of anticoagulation and lack of clear time of onset. He shows no ST segmental depressions or elevations and slows nicely with Metoprolol PO. His CHADsVasc is 1 and would suggest he needs only antiplatelet therapy. Additionally he has some symptoms of early alcohol withdrawal, but a low CIWA. His symptoms dramatically improve after one dose of Phenobarb. He ambulates through the department without difficulty and has a ride coming. He is given return precautions and has had his questions answered to his apparent satisfaction. Discharge Plan Departure Patient Disposition: Home Clinical Impression: Atrial fibrillation with RVR Alcohol withdrawal Qualifiers: Complication of substance-induced condition: uncomplicated Qualified Code(s): F10.230 - Alcohol dependence with withdrawal, uncomplicated Instructions: DI for Atrial Fibrillation Activity Restrictions/Additional Instructions: *You have been diagnosed with [ Mild alcohol withdrawal and atrial fibrillation. ] *What to do: *Take medications as directed; You need to take Aspirin 81mg daily as well as the prescription for Metoprolol (to keep your heart rate down), and the Librium taper to help with your mild alcohol withdrawal symptoms: Prescriptions were sent to [facility] at your request *Follow up with your primary care provider in 2-3 days, call later this morning for an appointment. Let them know you were seen in the Emergency Department and that we ask that you be seen in follow up *Return to ER if you should have any new, worsening or concerning symptoms Prescriptions: New chlordiazepoxide HCl 25 mg capsule See Rx Instructions .ROUTE .COMPLEX Qty: 32 RF: 0 Continued metoprolol tartrate 50 mg tablet 50 mg PO BID Qty: 60 RF: 0 Referrals: Cris Reyna MD [Primary Care Provider] -
[2020-01-21 01:03] LABS: Ethanol (ETOH) 43 mg/dL
[2020-01-21] MEDS: METOPROLOL IR 25 MG TABLET 50 MG PO (01:26)
[2020-01-21] MEDS: METOPROLOL TARTRATE 5 MG/5 ML INJ IV (01:26)
[2020-01-21] MEDS: PHENobarbital 65 MG/ML VIAL 260 MG IV (01:47)
[2020-01-21 03:02] LABS: COVID19 -Nasal RAPID Negative (Negative)
--- NOTE | 2020-01-21 03:30 | PC.NURSE ---
Got pt up and he ambulated around the department with a steady gait. MD observed. HR, BP, O2 sat stable after ambulation
--- NOTE | 2020-01-21 03:49 | ED_ITS ---
HPI - Arrhythmia/Palpitations General Chief Complaint: Arrhythmia/Palpitations Stated Complaint: weakness/ afib Time Seen by Provider: 01/20/20 23:15 Source: patient and EMS Mode of arrival: EMS Limitations: no limitations History of Present Illness HPI narrative: 74M former smoker complaint: rapid heart beat, heart racing, skipped beats and palpitations Context: occurred during rest Associated symptoms: anxiety Related Data Previous Rx's Medication Instructions Recorded chlordiazepoxide HCl See Rx Instructions .ROUTE 01/21/20 .COMPLEX #32 cap metoprolol tartrate 50 mg PO BID #60 tab 01/21/20 Allergies Allergy/AdvReac Type Severity Reaction Status Date / Time amoxicillin [AMOXICILLIN] Allergy Severe SWOLLEN JAW Verified 01/20/20 23:32 clindamycin [CLINDAMYCIN] AdvReac Severe C-DIFF Verified 01/20/20 23:32 Review of Systems Constitutional Constitutional: Denies frequent falls and Denies weakness Eyes Eyes: Denies loss of vision ENT Ears, Nose, Mouth, and Throat: Denies dizziness Musculoskeletal Musculoskeletal: Denies numbness Neurologic Neurologic: Denies behavioral changes, Denies confusion, Denies dizziness, Denies frequent falls, Denies loss of vision, Denies numbness, Reports tremor(s) and Denies weakness Psychiatric Psychiatric: Denies behavioral changes and Denies confusion Patient History Medical History (Updated 01/21/20 @ 03:44 by Justin Rasmussen DO) Alcohol abuse Atrial fibrillation Gout HTN (hypertension) Social History marital status: household members: spouse occupational status: previously employed Smoking Status: Former smoker alcohol intake: current substance use type: does not use Smoking Status: Former smoker alcohol intake frequency: 3 or more drinks per day Alcohol type: hard liquor Substance Use Type: does not use Exam Initial Vital Signs Initial Vital Signs: Vital Signs Temperature 98.2 F 01/20/20 23:15 Pulse Rate 115 H 01/20/20 23:15 Respiratory Rate 20 01/20/20 23:15 Blood Pressure 176/105 H 01/20/20 23:15 Pulse Oximetry 97 01/20/20 23:15 Course Orders Ordered: ED Orders 01/20/20 23:22 Complete Blood Count AUTO DIFF Stat Comprehensive Metabolic Panel Stat Ethanol (ETOH) Stat NT-proBNP (BNP-Adult 18+) Stat Procalcitonin Stat Prothrombin Time INR Stat Troponin & CK Cardiac Panel Stat 01/21/20 EKG-12 Lead Stat EKG-12 Lead Stat 01/21/20 01:18 COVID19 Stat Discontinued Medications Sodium Chloride (Normal Saline 0.9%) 1,000 mls @ 1,000 mls/hr IV BOLUS ONE Stop: 01/21/20 00:24 Last Infusion: 01/21/20 00:39 Dose: 0 mls/hr Documented by: Admin: 01/20/20 23:43 Dose: 1,000 mls/hr Documented by: NUSRAT Lorazepam (Lorazepam 0.5 Mg Tablet) 1 mg PO NOW ONE Stop: 01/21/20 03:49 Metoprolol Tartrate (Metoprolol Tartrate 5 Mg/5 Ml Inj) 5 mg IV NOW ONE Stop: 01/21/20 01:13 Last Admin: 01/21/20 01:26 Dose: 5 mg Documented by: NUSRAT Metoprolol Tartrate (Metoprolol Ir 25 Mg Tablet) 50 mg PO NOW ONE Stop: 01/21/20 01:13 Last Admin: 01/21/20 01:26 Dose: 50 mg Documented by: NUSRAT Phenobarbital (Phenobarbital 65 Mg/Ml Vial) 260 mg IV NOW ONE Stop: 01/21/20 01:36 Last Admin: 01/21/20 01:47 Dose: 260 mg Documented by: NUSRAT Vital Signs Vital signs: Vital Signs - 8 hr 01/20/20 23:15 01/20/20 23:19 01/20/20 23:30 Temperature 98.2 F Pulse Rate 115 H 118 H 107 H Respiratory Rate 20 14 19 Blood Pressure 176/105 H 155/93 H Pulse Oximetry 97 99 99 01/21/20 00:00 01/21/20 00:30 01/21/20 01:00 Temperature Pulse Rate 129 H 109 H 103 H Respiratory Rate 18 17 Blood Pressure 140/88 166/88 H 170/105 H Pulse Oximetry 96 98 97 01/21/20 01:30 01/21/20 02:00 01/21/20 02:30 Temperature Pulse Rate 99 H 119 H 92 H Respiratory Rate 24 19 13 Blood Pressure 140/89 107/71 126/66 Pulse Oximetry 91 95 01/21/20 03:00 01/21/20 03:23 01/21/20 03:30 Temperature Pulse Rate 92 H 100 H 89 Respiratory Rate 14 23 17 Blood Pressure 123/75 142/97 H 137/98 H Pulse Oximetry 95 95 01/21/20 04:00 Temperature Pulse Rate 100 H Respiratory Rate 18 Blood Pressure 154/90 H Pulse Oximetry 97 MDM - Arrhythmia/Palpitations Lab Data Result diagrams: 01/20/20 23:22 01/20/20 23:22 Labs: Lab Results 01/20/20 01/20/20 01/20/20 Range/Units 23:22 23:22 23:22 WBC 5.8 (4.5-11.0) X10^3/uL RBC 4.17 L (4.5-5.9) X10^6/uL Hgb 13.2 L (13.5-17.5) g/dL Hct 40.3 L (41-53) % MCV 96.5 (80-100) fL MCH 31.7 (26-34) PG MCHC 32.9 (30-36) % RDW 16.6 H (11.6-14.8) % Plt Count 149 L (150-400) X10^3/uL Neut % (Auto) 71.2 (50-75) % Lymph % (Auto) 17.4 L (25-40) % [place] % (Auto) 9.3 (3-14) % Eos % (Auto) 0.9 L (2-4) % Baso % (Auto) 1.2 (0-2) % Neut # (Auto) 4200 (8182-3263) /uL Lymph # (Auto) 1000 L (7111-1545) /uL [place] # (Auto) 500 (0-900) /uL Eos # (Auto) 100 (0-450) /uL Baso # (Auto) 100 (0-100) /uL PT 11.6 (10.1-12.7) SECONDS INR 1.0 (0.9-1.3) Sodium (137-145) mmol/L Potassium (3.4-5.1) mmol/L Chloride (98-107) mmol/L Carbon Dioxide (22-32) mmol/L BUN (9-20) mg/dL Creatinine (0.66-1.25) mg/dL Estimated GFR (>60) mL/min BUN/Creatinine Ratio (6-22) Glucose (80-110) mg/dL Calcium (8.4-10.2) mg/dL Total Bilirubin (0.2-1.3) mg/dL AST (17-59) IU/L ALT (<50) IU/L Alkaline Phosphatase (38-126) U/L Total Creatine Kinase (55-170) U/L CK-MB (CK-2) (<2.37) ng/mL CK-MB (CK-2) Rel Index (1.5-5.0) % Troponin I (0.01-0.034) ng/mL NT-Pro-B Natriuret Pep (<125) pg/mL Total Protein (6.3-8.2) g/dL Albumin (3.5-5.0) g/dL Globulin (1.7-4.1) g/dL Albumin/Globulin Ratio (1.0-2.8) Procalcitonin (<0.5) ng/mL Ethyl Alcohol 43 H ( - 10) mg/dL COVID-19 PCR (Negative) 01/20/20 01/20/20 01/21/20 Range/Units 23:22 23:22 01:18 WBC (4.5-11.0) X10^3/uL RBC (4.5-5.9) X10^6/uL Hgb (13.5-17.5) g/dL Hct (41-53) % MCV (80-100) fL MCH (26-34) PG MCHC (30-36) % RDW (11.6-14.8) % Plt Count (150-400) X10^3/uL Neut % (Auto) (50-75) % Lymph % (Auto) (25-40) % [place] % (Auto) (3-14) % Eos % (Auto) (2-4) % Baso % (Auto) (0-2) % Neut # (Auto) (7359-6607) /uL Lymph # (Auto) (3008-1701) /uL [place] # (Auto) (0-900) /uL Eos # (Auto) (0-450) /uL Baso # (Auto) (0-100) /uL PT (10.1-12.7) SECONDS INR (0.9-1.3) Sodium 138 (137-145) mmol/L Potassium 4.8 (3.4-5.1) mmol/L Chloride 104 (98-107) mmol/L Carbon Dioxide 22 (22-32) mmol/L BUN 22 H (9-20) mg/dL Creatinine 0.98 (0.66-1.25) mg/dL Estimated GFR > 60.0 (>60) mL/min BUN/Creatinine Ratio 22.4 H (6-22) Glucose 78 L (80-110) mg/dL Calcium 9.2 (8.4-10.2) mg/dL Total Bilirubin 1.6 H (0.2-1.3) mg/dL AST 61 H (17-59) IU/L ALT 29 (<50) IU/L Alkaline Phosphatase 135 H (38-126) U/L Total Creatine Kinase 180 H (55-170) U/L CK-MB (CK-2) 2.56 H (<2.37) ng/mL CK-MB (CK-2) Rel Index 1.4 L (1.5-5.0) % Troponin I < 0.012 (0.01-0.034) ng/mL NT-Pro-B Natriuret Pep 650 H (<125) pg/mL Total Protein 7.9 (6.3-8.2) g/dL Albumin 4.6 (3.5-5.0) g/dL Globulin 3.3 (1.7-4.1) g/dL Albumin/Globulin Ratio 1.4 (1.0-2.8) Procalcitonin < 0.05 (<0.5) ng/mL Ethyl Alcohol ( - 10) mg/dL COVID-19 PCR Negative (Negative) Discharge Plan Departure Patient Disposition: Home Clinical Impression: Atrial fibrillation with RVR Alcohol withdrawal Qualifiers: Complication of substance-induced condition: uncomplicated Qualified Code(s): F10.230 - Alcohol dependence with withdrawal, uncomplicated Instructions: DI for Atrial Fibrillation Activity Restrictions/Additional Instructions: *You have been diagnosed with [ Mild alcohol withdrawal and atrial fibrillation. ] *What to do: *Take medications as directed; You need to take Aspirin 81mg daily as well as the prescription for Metoprolol (to keep your heart rate down), and the Librium taper to help with your mild alcohol withdrawal symptoms: Prescriptions were sent to [facility] at your request *Follow up with your primary care provider in 2-3 days, call later this morning for an appointment. Let them know you were seen in the Emergency Department and that we ask that you be seen in follow up *Return to ER if you should have any new, worsening or concerning symptoms Prescriptions: New chlordiazepoxide HCl 25 mg capsule See Rx Instructions .ROUTE .COMPLEX Qty: 32 RF: 0 Continued metoprolol tartrate 50 mg tablet 50 mg PO BID Qty: 60 RF: 0 Referrals: Cris Reyna MD [Primary Care Provider] -
--- NOTE | 2020-01-21 04:25 | PC.NURSE ---
Attempting to contact family for a ride home. Unable to. Will board in the ER until the morning or until family returns our calls
--- NOTE | 2020-01-21 04:40 | PC.NURSE ---
Pt called and is also attempted to arrange a ride for the pt. She is currently in [place]
== END 2020-01-21 09:00 | disposition home or self-care (01) ==
PROVIDERS: Emergency Provider Emergency Medicine; PCP Student in an Organized Health Care Education/Training Program
DX: I48.91 Unspecified atrial fibrillation (principal); F10.230 Alcohol dependence with withdrawal, uncomplicated; R53.83 Other fatigue; I11.0 Hypertensive heart disease with heart failure; I50.9 Heart failure, unspecified
CPT/HCPCS: 36415; 80053; 80320; 82550; 82553; 83880; 84145; 84484; 85025; 85610; 87635; 93005; 93010; 96361; 96374; 96375; 99281; 99284; J2560

== ENCOUNTER 2020-05-26 20:49 | Emergency (ER) | payer MEDICARE, OTHER, SELFPAY ==
[2019-07-03 21:02] VITALS: PULSE 98; RESP 16; O2SAT 98
[2019-12-28 16:42] VITALS: BMI 22.8
[2020-05-26] VITALS (36 sets, daily range): BP systolic 102–147; BP diastolic 61–96; PULSE 86–125; RESP 12–27; TEMP 36.6; O2SAT 93–99
--- NOTE | 2020-05-26 21:00 | PC.NURSE ---
Dr. Medina aware: Pt has h/o eliquis use however does not have a current med list.
--- NOTE | 2020-05-26 21:02 | DI.RAD.S_ITS ---
PROCEDURE: XR PELVIS 1-2V INDICATIONS: trauma TECHNIQUE: 1 AP view of the pelvis acquired. COMPARISON: None. FINDINGS: Bones: No acute fractures or dislocations. The left femur is suboptimally evaluated due to rotation. No suspicious bony lesions. Degenerative changes are seen in the spine. Soft tissues: Visualized bowel gas pattern is normal. No suspicious soft tissue calcifications. IMPRESSION: No acute osseous abnormality. If the symptoms persist with conservative management, consider cross sectional imaging such as CT or MRI for further assessment. Dictated by: Jt Spencer M.D. on 05/26/2020 at 21:47 Approved by: Jt Spencer M.D. on 05/26/2020 at 21:48
--- NOTE | 2020-05-26 21:02 | DI.RAD.S_ITS ---
PROCEDURE: XR CHEST 1V INDICATIONS: trauma, fell down 16 stairs TECHNIQUE: One view of the chest was acquired. COMPARISON: [facility], , XR CHEST 1V, 12/28/2019, 15:04. FINDINGS: Surgical changes and devices: None. Lungs and pleura: Lungs are clear. No pleural effusions or pneumothorax. Mediastinum: Mediastinal contours appear normal. Heart size is normal. Moderate aortic atherosclerotic calcifications. Bones and chest wall: Mild deformity of the right lateral 4th rib is stable when compared to the prior radiographs, compatible with chronic healed fracture. No definite acute displaced fracture is seen. No suspicious bony lesions. Overlying soft tissues appear unremarkable. IMPRESSION: No acute cardiopulmonary abnormality. No pneumothorax. Dictated by: Jt Spencer M.D. on 05/26/2020 at 21:34 Approved by: Jt Spencer M.D. on 05/26/2020 at 21:41
--- NOTE | 2020-05-26 21:05 | DI.CT.S_ITS ---
PROCEDURE: CT CHEST ABD PEL W CON INDICATIONS: trauma TECHNIQUE: After the administration of intravenous contrast, 5 mm thick sections acquired from the lung apices to the symphysis. 2.5 mm thick coronal and sagittal reformats were acquired. Additional 7 mm thick coronal maximum intensity projection (MIP) reformats acquired through the lungs. Optional 10-minute delayed imaging may be performed from the kidneys to the bladder. For radiation dose reduction, the following was used: automated exposure control, adjustment of mA and/or kV according to patient size. COMPARISON: None. FINDINGS: Image quality: Excellent. CHEST: Lungs: No pulmonary contusions or lacerations. Bandlike atelectasis is seen at the left lung base. Chronic appearing reticulations are seen in the right lung base. No acute airspace opacities. No pneumothorax or hemothorax. Central and peripheral airways appear patent and normal in caliber. Mediastinum: No mediastinal hematomas. Heart size is mildly enlarged. No pericardial effusion. Thoracic aorta and pulmonary arteries demonstrate normal size and enhancement. No mediastinal or hilar adenopathy. Esophagus is normal in caliber. No hiatal hernia. Chest wall: No subcutaneous emphysema. No axillary or supraclavicular adenopathy. Thyroid gland appears normal. ABDOMEN: Solid organs: There is diffuse hepatic steatosis. No liver laceration is seen. Gallbladder appears normal. Biliary system is non-dilated. Pancreas enhances normally, without transection. Spleen is normal in size and enhancement, without lacerations. No adrenal hematomas. Both kidneys enhance normally, without hydronephrosis or lacerations. Peritoneum and bowel: No free fluid or air. Unenhanced bowel loops demonstrate normal wall thickness and caliber. Normal appendix. Nodes and vessels: No retroperitoneal or mesenteric adenopathy. Aorta and inferior vena cava are normal in size and enhancement. Moderate to severe aortic atherosclerotic calcifications. Miscellaneous: No ventral hernias. PELVIS: Genitourinary: Bladder wall thickness is normal. Miscellaneous: No inguinal hernias or adenopathy. Bones: Nondisplaced fractures are seen in the left lateral 3rd, 4th, and 5th ribs. There is a nondisplaced fracture of the tip of the left 12th rib. Nondisplaced fractures of the right posterolateral 8th-10th ribs. Chronic healed fracture of the right 4th rib.Pelvic ring and hip joints appear intact. Chronic compression fractures again seen to the C6, C7, and T2 vertebral bodies. Moderate compression deformities are seen at the T12 and L1 vertebral bodies, of indeterminate age. There is mild 3 mm retropulsion of osseous fragments at the T12 level with mild narrowing of the bony spinal canal. IMPRESSION: 1. Age-indeterminate moderate vertebral compression fractures involving the T12 and L1 vertebral bodies. Mild 3 mm retropulsion of osseous fragments is seen at the T11-12 disc space level with mild narrowing of the bony spinal canal. 2. Chronic compression deformities of the C6, C7, and T2 vertebra. 3. Multiple bilateral nondisplaced rib fractures involving the left 3rd-5th ribs, left 12th rib, and right 8th-10th ribs, of indeterminate age. 4. No acute solid organ injury. 5. Additional chronic findings as indicated in the body of the report. Dictated by: Jt Spencer M.D. on 05/26/2020 at 21:56 Approved by: Jt Spencer M.D. on 05/26/2020 at 22:05
--- NOTE | 2020-05-26 21:06 | DI.CT.S_ITS ---
PROCEDURE: CT HEAD/BRAIN WO CON INDICATIONS: trauma TECHNIQUE: Noncontrast 4.5 mm thick angled axial sections acquired from the foramen magnum to the vertex, with coronal and sagittal reformats. For radiation dose reduction, the following was used: automated exposure control, adjustment of mA and/or kV according to patient size. COMPARISON: [facility], CT, CT HEAD/BRAIN WO CON, 12/28/2019, 14:54. [facility], CT, CT HEAD/BRAIN WO CON, 07/03/2019, 20:13. FINDINGS: Image quality: Excellent. CSF spaces: Basal cisterns are patent. No extra-axial fluid collections. The ventricles are symmetric in size and shape. Brain: No acute intracranial hemorrhage or mass effect. There is cerebral volume loss for age, with resultant ventricular and sulcal prominence. There are periventricular and deep white matter chronic small vessel ischemic changes. There is intracranial internal carotid artery atherosclerosis. Skull and face: A right frontal scalp hematoma is seen. No underlying skull fracture is identified. Calvarium and visualized facial bones appear intact, without suspicious lesions. Sinuses: Mild mucosal thickening is seen in the right ethmoid air cells and right maxillary sinus. The remaining paranasal sinuses and the mastoid air cells are clear. IMPRESSION: Small right frontal scalp hematoma. No acute intracranial hemorrhage or mass effect. No skull fracture. Dictated by: Jt Spencer M.D. on 05/26/2020 at 21:48 Approved by: Jt Spencer M.D. on 05/26/2020 at 21:50
--- NOTE | 2020-05-26 21:06 | DI.CT.S_ITS ---
PROCEDURE: CT CERVICAL SPINE WO CON INDICATIONS: trauma TECHNIQUE: Noncontrast 3 mm thick sections acquired from the skull base to the T4 level. Sagittal and coronal reformats were then constructed. For radiation dose reduction, the following was used: automated exposure control, adjustment of mA and/or kV according to patient size. COMPARISON: [facility], CT, CT CERVICAL SPINE WO CON, 12/28/2019, 14:54. FINDINGS: Image quality: Excellent. Bones: No acute fractures or dislocations. Visualized superior ribs are intact. Moderate multilevel degenerative changes are seen with degenerative endplate changes, and uncovertebral joint and facet hypertrophy. A chronic compression fracture is seen involving the T2 vertebral body that appears unchanged when compared to the CT from 12/28/2019. There is possible mild wedging of the C6 and C7 vertebrae that also appear unchanged. Soft tissues: Prevertebral soft tissues are normal in thickness. No paravertebral hematomas. No apical pneumothoraces. Bilateral carotid bulb atherosclerotic calcifications are seen. IMPRESSION: 1. No acute cervical spine fracture or subluxation. 2. Chronic lower cervical and upper thoracic compression fractures, unchanged when compared to the CT from 12/28/2019. 3. Multilevel degenerative disc disease and facet hypertrophy. Dictated by: Jt Spencer M.D. on 05/26/2020 at 21:50 Approved by: Jt Spencer M.D. on 05/26/2020 at 21:54
--- NOTE | 2020-05-26 21:09 | ED.GENADULT ---
HPI - General Adult General Chief complaint: Trauma Stated complaint: Fall Time Seen by Provider: 05/26/20 21:05 Source: EMS Mode of arrival: EMS Limitations: other (Intoxication) History of Present Illness HPI narrative: Patient is a 74-year-old male who arrived by EMS in a cervical collar and on a backboard as a full trauma for evaluation of injuries that he sustained after falling down was reported to be a flight of stairs. This was an unwitnessed fall. EMS reports that there was alcohol involved. There was also reports of loss of consciousness. Review of his medical record does show that he is on anticoagulation for paroxysmal atrial fibrillation. Upon arrival patient unable to provide any HPI however was able to provide review of systems. Related Data Previous Rx's Medication Instructions Recorded chlordiazepoxide HCl See Rx Instructions .ROUTE 01/21/20 .COMPLEX #32 cap metoprolol tartrate 50 mg PO BID #60 tab 01/21/20 Allergies Allergy/AdvReac Type Severity Reaction Status Date / Time amoxicillin [AMOXICILLIN] Allergy Severe SWOLLEN JAW Verified 05/26/20 20:58 clindamycin [CLINDAMYCIN] AdvReac Severe C-DIFF Verified 05/26/20 20:58 Review of Systems Constitutional Constitutional: Denies fatigue, Denies fever(s), Reports frequent falls and Reports headache(s) Eyes Eyes: Denies exophthalmos ENT Ears, Nose, Mouth, and Throat: Reports headache(s), Denies sore throat, Denies throat swelling and Denies tongue swelling Cardiovascular Cardiovascular: Denies chest pain and Denies dyspnea Respiratory Respiratory: Denies dyspnea Gastrointestinal Gastrointestinal: Denies abdominal pain and Denies nausea Musculoskeletal Musculoskeletal: Denies back pain, Denies arthralgias, Denies numbness and Denies tingling Integumentary/Breasts Comments: Cut to forehead Neurologic Neurologic: Reports confusion, Reports frequent falls, Reports headache(s), Denies numbness and Denies tingling Psychiatric Psychiatric: Reports confusion Endocrine Endocrine: Denies fatigue Hematologic/Lymphatic On Anticoagulants: Yes Allergic/Immunologic Allergic/Immunologic: Denies throat swelling and Denies tongue swelling Patient History Medical History Alcohol abuse Atrial fibrillation Gout HTN (hypertension) Social History marital status: household members: spouse occupational status: previously employed Smoking Status: Former smoker alcohol intake: current substance use type: does not use Smoking Status: Former smoker alcohol intake frequency: 3 or more drinks per day Alcohol type: hard liquor Substance Use Type: does not use Exam Initial Vital Signs Initial Vital Signs: Vital Signs Temperature 98 F 05/26/20 20:53 Pulse Rate 112 H 05/26/20 20:53 Respiratory Rate 24 05/26/20 20:53 Blood Pressure 136/87 05/26/20 20:53 Pulse Oximetry 97 05/26/20 20:53 Const General: cooperative and well groomed Nutritional Appearance: well nourished Limitations: altered mental status HENMT Head: laceration Ears: hearing grossly normal bilaterally Nose: external nose normal and No epistaxis Face and sinus: normal facial exam, no maxillary instability and no tenderness Mouth: oral mucosae normal, lip normal and tongue normal Teeth and gingiva: dentition normal Eyes Pupils: PERRL Other: Bruising/ecchymosis involving the upper eyelid right eye Chest Chest: No crepitus and No tenderness Resp Effort & Inspection: normal respiratory effort Auscultation: clear to auscultation bilaterally Cardio Rate: tachycardic Rhythm: regular rhythm Pulses: radial pulses present and dorsalis pedis present GI Inspection: non-distended Palpation: soft and No tender External: normal external exam and circumcised Back/Spine/Pelvis Cervical Spine: collar present, No cervical spasm and No cervical spinal tenderness Thoracic/Lumbar Spine: No paraspinal tenderness, No thoracic spinal tenderness and No lumbar spinal tenderness Skin Other: Patient with a irregular complex laceration to the right forehead that is bleeding. Neuro General: patient alert, patient awake and moves all extremities Other: Patient is oriented to person. He knows that he is at a hospital but unsure which 1. He knows his date. He is unsure as to exactly what happened that caused him to be brought to the emergency department. Extrem General: normal to inspection, capillary refill normal and No edema Psych Appearance: grossly normal and well kempt Procedures Laceration Repair Laceration 1: Site: face (Right forehead) Side (If applicable): right Size (cm): 7 Description: stellate, flap and irregular Depth: simple, single layer Local Anesthetic: lidocaine 1% and with epi Amount of anesthesia used (mL): 10 Pre-repair: wound explored and deep structures intact Skin layer closed with: nylon Size (cm): 3-0 Number of sutures: 12 Technique: simple, interrupted Scores GCS Tata coma scale eye opening: Spontaneous Boardman coma scale verbal response: Confused Boardman coma scale motor response: Obey commands Boardman coma scale total score: 14 Nexus Score for C-Spine Focal Neurologic deficit present: No Midline spinal tenderness present: No Altered level of conciousness present: Yes Intoxication present: Yes Distracting Injury Present: No Nexus Criteria for C-spine: 2 Course Orders Ordered: ED Orders 05/26/20 21:02 XR chest 1V Stat XR pelvis 1-2V Stat 05/26/20 21:04 COVID19 -Nasal swab/Pre-Proc Stat 05/26/20 21:05 CT chest abd pel w con Stat 05/26/20 21:06 CT cervical spine wo con Stat CT head/brain wo con Stat 05/26/20 21:08 Complete Blood Count AUTO DIFF Stat Comprehensive Metabolic Panel Stat Ethanol (ETOH) Stat Lactate (Lactic Acid) Urgent Lipase Stat Partial Thromboplastin Time Stat Prothrombin Time INR Stat Troponin & CK Cardiac Panel Stat Type and Screen Stat 05/26/20 22:52 Urine Drug Screen, Rapid Stat 05/27/20 00:12 Urinalysis and Microscopic Stat Vital Signs Vital signs: Vital Signs - 8 hr 05/26/20 20:53 05/26/20 21:07 05/26/20 21:10 Temperature 98 F Pulse Rate 112 H 113 H 113 H Respiratory Rate 24 16 27 H Blood Pressure 136/87 Pulse Oximetry 97 05/26/20 21:27 05/26/20 21:30 05/26/20 21:35 Temperature Pulse Rate 125 H 122 H 125 H Respiratory Rate 21 Blood Pressure 126/83 122/78 Pulse Oximetry 94 96 93 05/26/20 21:40 05/26/20 21:45 05/26/20 21:50 Temperature Pulse Rate 111 H 97 H 94 H Respiratory Rate 20 15 19 Blood Pressure 116/79 146/87 H Pulse Oximetry 98 99 99 05/26/20 21:51 05/26/20 21:55 05/26/20 21:56 Temperature Pulse Rate 96 H 111 H 107 H Respiratory Rate 14 22 17 Blood Pressure 135/84 127/61 Pulse Oximetry 99 98 99 05/26/20 22:00 05/26/20 22:04 05/26/20 22:05 Temperature Pulse Rate 91 H 92 H 89 Respiratory Rate 13 15 13 Blood Pressure 125/65 123/73 Pulse Oximetry 98 98 98 05/26/20 22:10 05/26/20 22:15 05/26/20 22:20 Temperature Pulse Rate 105 H 93 H 104 H Respiratory Rate 23 14 12 Blood Pressure 116/73 127/71 130/68 Pulse Oximetry 98 95 97 05/26/20 22:25 05/26/20 22:30 05/26/20 22:35 Temperature Pulse Rate 86 101 H 95 H Respiratory Rate 14 22 18 Blood Pressure 125/71 117/74 123/87 Pulse Oximetry 96 96 97 05/26/20 22:48 05/26/20 22:49 05/26/20 22:50 Temperature Pulse Rate 98 H 90 86 Respiratory Rate 21 Blood Pressure 136/79 147/81 H Pulse Oximetry 96 97 96 05/26/20 22:55 05/26/20 23:00 05/26/20 23:05 Temperature Pulse Rate 96 H 95 H 89 Respiratory Rate Blood Pressure 137/79 133/96 H 113/75 Pulse Oximetry 97 98 96 05/26/20 23:10 05/26/20 23:15 05/26/20 23:20 Temperature Pulse Rate 108 H 93 H 92 H Respiratory Rate Blood Pressure 102/69 118/85 125/92 H Pulse Oximetry 97 97 96 05/26/20 23:30 05/26/20 23:35 05/26/20 23:40 Temperature Pulse Rate 91 H 100 H 93 H Respiratory Rate 16 Blood Pressure Pulse Oximetry 94 94 97 05/26/20 23:45 05/26/20 23:50 05/26/20 23:55 Temperature Pulse Rate 98 H 90 94 H Respiratory Rate 17 22 19 Blood Pressure 127/72 Pulse Oximetry 97 97 97 05/27/20 01:05 Temperature Pulse Rate 80 Respiratory Rate 18 Blood Pressure 131/69 Pulse Oximetry 98 Medical Decision Making Lab Data Lab results reviewed: Yes I reviewed the patient's lab results. Result diagrams: 05/26/20 21:08 05/26/20 21:08 Labs: Lab Results 05/26/20 05/26/20 05/26/20 Range/Units 00:15 21:04 21:08 WBC 4.6 (4.5-11.0) X10^3/uL RBC 3.23 L (4.5-5.9) X10^6/uL Hgb 11.8 L (13.5-17.5) g/dL Hct 34.9 L (41-53) % MCV 107.8 H (80-100) fL MCH 36.5 H (26-34) PG MCHC 33.8 (30-36) % RDW 14.1 (11.6-14.8) % Plt Count 146 L (150-400) X10^3/uL Neut % (Auto) 53.2 (50-75) % Lymph % (Auto) 31.7 (25-40) % Creek % (Auto) 11.6 (3-14) % Eos % (Auto) 1.5 L (2-4) % Baso % (Auto) 2.0 (0-2) % Neut # (Auto) 2500 (8531-0356) /uL Lymph # (Auto) 1500 (8061-8323) /uL Creek # (Auto) 500 (0-900) /uL Eos # (Auto) 100 (0-450) /uL Baso # (Auto) 100 (0-100) /uL PT (10.1-12.7) SECONDS INR (0.9-1.3) APTT (26.4-36.2) SECONDS Sodium (137-145) mmol/L Potassium (3.4-5.1) mmol/L Chloride (98-107) mmol/L Carbon Dioxide (22-32) mmol/L BUN (9-20) mg/dL Creatinine (0.66-1.25) mg/dL Estimated GFR (>60) mL/min BUN/Creatinine Ratio (6-22) Glucose (80-110) mg/dL Lactate (0.7-2.1) mmol/L Calcium (8.4-10.2) mg/dL Total Bilirubin (0.2-1.3) mg/dL AST (17-59) IU/L ALT (<50) IU/L Alkaline Phosphatase (38-126) U/L Total Creatine Kinase (55-170) U/L CK-MB (CK-2) (<2.37) ng/mL CK-MB (CK-2) Rel Index (1.5-5.0) % Troponin I (0.01-0.034) ng/mL Total Protein (6.3-8.2) g/dL Albumin (3.5-5.0) g/dL Globulin (1.7-4.1) g/dL Albumin/Globulin Ratio (1.0-2.8) Lipase (23-300) U/L Urine Color Yellow Urine Appearance Clear Urine pH 5.5 (4.5-8.0) Ur Specific [place] 1.010 (1.000-1.035) Urine Protein Negative (Negative) Urine Glucose (UA) Negative (Negative) g/dL Urine Ketones Negative (NEGATIVE) Urine Occult Blood 1+ H (Negative) Urine Nitrate Negative (Negative) Urine Bilirubin Negative (NEGATIVE) Urine Urobilinogen 0.2 (0.2) E.U./dL Ur Leukocyte Esterase Negative (NEGATIVE) Urine RBC 0-1/hpf (0-5/HPF) Urine WBC None seen (0-5/HPF) Urine Bacteria None seen (None) Ur Culture Indicated? Cult not indicated U Opiates 300ng/mL cut (Negative) Ur Oxycodone Screen (Negative) Urine Methadone Screen (Negative) Ur Barbiturates Screen (Negative) U Tricyclic Antidepress (Negative) Ur Phencyclidine Scrn (Negative) Ur Amphetamines Screen (Negative) U Methamphetamines Scrn (Negative) Ur MDMA Scrn (Ecstasy) (Negative) U Benzodiazepines Scrn (Negative) Urine Cocaine Screen (Negative) U Marijuana (THC) Screen (Negative) Ethyl Alcohol ( - 10) mg/dL SARS-CoV-2 (PCR) Negative (Negative) Blood Type Antibody Screen 05/26/20 05/26/20 05/26/20 Range/Units 21:08 21:08 21:08 WBC (4.5-11.0) X10^3/uL RBC (4.5-5.9) X10^6/uL Hgb (13.5-17.5) g/dL Hct (41-53) % MCV (80-100) fL MCH (26-34) PG MCHC (30-36) % RDW (11.6-14.8) % Plt Count (150-400) X10^3/uL Neut % (Auto) (50-75) % Lymph % (Auto) (25-40) % Creek % (Auto) (3-14) % Eos % (Auto) (2-4) % Baso % (Auto) (0-2) % Neut # (Auto) (4414-9982) /uL Lymph # (Auto) (4549-4964) /uL Creek # (Auto) (0-900) /uL Eos # (Auto) (0-450) /uL Baso # (Auto) (0-100) /uL PT 11.1 (10.1-12.7) SECONDS INR 1.0 (0.9-1.3) APTT 24 L (26.4-36.2) SECONDS Sodium 141 (137-145) mmol/L Potassium 3.9 (3.4-5.1) mmol/L Chloride 105 (98-107) mmol/L Carbon Dioxide 24 (22-32) mmol/L BUN 13 (9-20) mg/dL Creatinine 0.77 (0.66-1.25) mg/dL Estimated GFR > 60.0 (>60) mL/min BUN/Creatinine Ratio 16.9 (6-22) Glucose 98 (80-110) mg/dL Lactate (0.7-2.1) mmol/L Calcium 9.1 (8.4-10.2) mg/dL Total Bilirubin 0.7 (0.2-1.3) mg/dL AST 169 H (17-59) IU/L ALT 88 H (<50) IU/L Alkaline Phosphatase 101 (38-126) U/L Total Creatine Kinase 178 H (55-170) U/L CK-MB (CK-2) 3.74 H (<2.37) ng/mL CK-MB (CK-2) Rel Index 2.1 (1.5-5.0) % Troponin I < 0.012 (0.01-0.034) ng/mL Total Protein 6.9 (6.3-8.2) g/dL Albumin 4.2 (3.5-5.0) g/dL Globulin 2.7 (1.7-4.1) g/dL Albumin/Globulin Ratio 1.6 (1.0-2.8) Lipase 197 (23-300) U/L Urine Color Urine Appearance Urine pH (4.5-8.0) Ur Specific [place] (1.000-1.035) Urine Protein (Negative) Urine Glucose (UA) (Negative) g/dL Urine Ketones (NEGATIVE) Urine Occult Blood (Negative) Urine Nitrate (Negative) Urine Bilirubin (NEGATIVE) Urine Urobilinogen (0.2) E.U./dL Ur Leukocyte Esterase (NEGATIVE) Urine RBC (0-5/HPF) Urine WBC (0-5/HPF) Urine Bacteria (None) Ur Culture Indicated? U Opiates 300ng/mL cut (Negative) Ur Oxycodone Screen (Negative) Urine Methadone Screen (Negative) Ur Barbiturates Screen (Negative) U Tricyclic Antidepress (Negative) Ur Phencyclidine Scrn (Negative) Ur Amphetamines Screen (Negative) U Methamphetamines Scrn (Negative) Ur MDMA Scrn (Ecstasy) (Negative) U Benzodiazepines Scrn (Negative) Urine Cocaine Screen (Negative) U Marijuana (THC) Screen (Negative) Ethyl Alcohol 382 H ( - 10) mg/dL SARS-CoV-2 (PCR) (Negative) Blood Type A Positive Antibody Screen Negative 05/26/20 05/26/20 05/26/20 Range/Units 21:08 22:52 23:25 WBC (4.5-11.0) X10^3/uL RBC (4.5-5.9) X10^6/uL Hgb (13.5-17.5) g/dL Hct (41-53) % MCV (80-100) fL MCH (26-34) PG MCHC (30-36) % RDW (11.6-14.8) % Plt Count (150-400) X10^3/uL Neut % (Auto) (50-75) % Lymph % (Auto) (25-40) % Creek % (Auto) (3-14) % Eos % (Auto) (2-4) % Baso % (Auto) (0-2) % Neut # (Auto) (3033-7525) /uL Lymph # (Auto) (7299-4089) /uL Creek # (Auto) (0-900) /uL Eos # (Auto) (0-450) /uL Baso # (Auto) (0-100) /uL PT (10.1-12.7) SECONDS INR (0.9-1.3) APTT (26.4-36.2) SECONDS Sodium (137-145) mmol/L Potassium (3.4-5.1) mmol/L Chloride (98-107) mmol/L Carbon Dioxide (22-32) mmol/L BUN (9-20) mg/dL Creatinine (0.66-1.25) mg/dL Estimated GFR (>60) mL/min BUN/Creatinine Ratio (6-22) Glucose (80-110) mg/dL Lactate 4.0 H 4.1 H* (0.7-2.1) mmol/L Calcium (8.4-10.2) mg/dL Total Bilirubin (0.2-1.3) mg/dL AST (17-59) IU/L ALT (<50) IU/L Alkaline Phosphatase (38-126) U/L Total Creatine Kinase (55-170) U/L CK-MB (CK-2) (<2.37) ng/mL CK-MB (CK-2) Rel Index (1.5-5.0) % Troponin I (0.01-0.034) ng/mL Total Protein (6.3-8.2) g/dL Albumin (3.5-5.0) g/dL Globulin (1.7-4.1) g/dL Albumin/Globulin Ratio (1.0-2.8) Lipase (23-300) U/L Urine Color Urine Appearance Urine pH (4.5-8.0) Ur Specific [place] (1.000-1.035) Urine Protein (Negative) Urine Glucose (UA) (Negative) g/dL Urine Ketones (NEGATIVE) Urine Occult Blood (Negative) Urine Nitrate (Negative) Urine Bilirubin (NEGATIVE) Urine Urobilinogen (0.2) E.U./dL Ur Leukocyte Esterase (NEGATIVE) Urine RBC (0-5/HPF) Urine WBC (0-5/HPF) Urine Bacteria (None) Ur Culture Indicated? U Opiates 300ng/mL cut Negative (Negative) Ur Oxycodone Screen Negative (Negative) Urine Methadone Screen Negative (Negative) Ur Barbiturates Screen Negative (Negative) U Tricyclic Antidepress Negative (Negative) Ur Phencyclidine Scrn Negative (Negative) Ur Amphetamines Screen Negative (Negative) U Methamphetamines Scrn Negative (Negative) Ur MDMA Scrn (Ecstasy) Negative (Negative) U Benzodiazepines Scrn Negative (Negative) Urine Cocaine Screen Negative (Negative) U Marijuana (THC) Screen Negative (Negative) Ethyl Alcohol ( - 10) mg/dL SARS-CoV-2 (PCR) (Negative) Blood Type Antibody Screen Imaging Data Chest x-ray: Radiologist's Impression: [address] [id number] ReportSigned 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 PROCEDURE: XR CHEST 1V INDICATIONS: trauma, fell down 16 stairs TECHNIQUE: One view of the chest was acquired. COMPARISON: [facility], XR CHEST 1V, 12/28/2019, 15:04. FINDINGS: Surgical changes and devices: None. Lungs and pleura: Lungs are clear. No pleural effusions or pneumothorax. Mediastinum: Mediastinal contours appear normal. Heart size is normal. Moderate aortic atherosclerotic calcifications. Bones and chest wall: Mild deformity of the right lateral 4th rib is stable when compared to the prior radiographs, compatible with chronic healed fracture. No definite acute displaced fracture is seen. No suspicious bony lesions. Overlying soft tissues appear unremarkable. IMPRESSION: No acute cardiopulmonary abnormality. No pneumothorax. Dictated by: Jt Spencer M.D. on 05/26/2020 at 21:34 Approved by: Jt Spencer M.D. 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 PROCEDURE: XR PELVIS 1-2V INDICATIONS: trauma TECHNIQUE: 1 AP view of the pelvis acquired. COMPARISON: None. FINDINGS: Bones: No acute fractures or dislocations. The left femur is suboptimally evaluated due to rotation. No suspicious bony lesions. Degenerative changes are seen in the spine. Soft tissues: Visualized bowel gas pattern is normal. No suspicious soft tissue calcifications. IMPRESSION: No acute osseous abnormality. If the symptoms persist with conservative management, consider cross sectional imaging such as CT or MRI for further assessment. Dictated by: Jt Spencer M.D. on 05/26/2020 at 21:47 Approved by: Jt Spencer M.D. 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 PROCEDURE: CT HEAD/BRAIN WO CON INDICATIONS: trauma TECHNIQUE: Noncontrast 4.5 mm thick angled axial sections acquired from the foramen magnum to the vertex, with coronal and sagittal reformats. For radiation dose reduction, the following was used: automated exposure control, adjustment of mA and/or kV according to patient size. COMPARISON: [facility], CT, CT HEAD/BRAIN WO CON, 12/28/2019, 14:54. [facility], CT, CT HEAD/BRAIN WO CON, 07/03/2019, 20:13. FINDINGS: Image quality: Excellent. CSF spaces: Basal cisterns are patent. No extra-axial fluid collections. The ventricles are symmetric in size and shape. Brain: No acute intracranial hemorrhage or mass effect. There is cerebral volume loss for age, with resultant ventricular and sulcal prominence. There are periventricular and deep white matter chronic small vessel ischemic changes. There is intracranial internal carotid artery atherosclerosis. Skull and face: A right frontal scalp hematoma is seen. No underlying skull fracture is identified. Calvarium and visualized facial bones appear intact, without suspicious lesions. Sinuses: Mild mucosal thickening is seen in the right ethmoid air cells and right maxillary sinus. The remaining paranasal sinuses and the mastoid air cells are clear. IMPRESSION: Small right frontal scalp hematoma. No acute intracranial hemorrhage or mass effect. No skull fracture. Dictated by: Jt Spencer M.D. on 05/26/2020 at 21:48 Approved by: Jt Spencer M.D. 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 PROCEDURE: CT CERVICAL SPINE WO CON INDICATIONS: trauma TECHNIQUE: Noncontrast 3 mm thick sections acquired from the skull base to the T4 level. Sagittal and coronal reformats were then constructed. For radiation dose reduction, the following was used: automated exposure control, adjustment of mA and/or kV according to patient size. COMPARISON: [facility], CT, CT CERVICAL SPINE WO CON, 12/28/2019, 14:54. FINDINGS: Image quality: Excellent. Bones: No acute fractures or dislocations. Visualized superior ribs are intact. Moderate multilevel degenerative changes are seen with degenerative endplate changes, and uncovertebral joint and facet hypertrophy. A chronic compression fracture is seen involving the T2 vertebral body that appears unchanged when compared to the CT from 12/28/2019. There is possible mild wedging of the C6 and C7 vertebrae that also appear unchanged. Soft tissues: Prevertebral soft tissues are normal in thickness. No paravertebral hematomas. No apical pneumothoraces. Bilateral carotid bulb atherosclerotic calcifications are seen. IMPRESSION: 1. No acute cervical spine fracture or subluxation. 2. Chronic lower cervical and upper thoracic compression fractures, unchanged when compared to the CT from 12/28/2019. 3. Multilevel degenerative disc disease and facet hypertrophy. Dictated by: Jt Spencer M.D. on 05/26/2020 at 21:50 Approved by: Jt Spencer M.D. 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 PROCEDURE: CT CHEST ABD PEL W CON INDICATIONS: trauma TECHNIQUE: After the administration of intravenous contrast, 5 mm thick sections acquired from the lung apices to the symphysis. 2.5 mm thick coronal and sagittal reformats were acquired. Additional 7 mm thick coronal maximum intensity projection (MIP) reformats acquired through the lungs. Optional 10-minute delayed imaging may be performed from the kidneys to the bladder. For radiation dose reduction, the following was used: automated exposure control, adjustment of mA and/or kV according to patient size. COMPARISON: None. FINDINGS: Image quality: Excellent. CHEST: Lungs: No pulmonary contusions or lacerations. Bandlike atelectasis is seen at the left lung base. Chronic appearing reticulations are seen in the right lung base. No acute airspace opacities. No pneumothorax or hemothorax. Central and peripheral airways appear patent and normal in caliber. Mediastinum: No mediastinal hematomas. Heart size is mildly enlarged. No pericardial effusion. Thoracic aorta and pulmonary arteries demonstrate normal size and enhancement. No mediastinal or hilar adenopathy. Esophagus is normal in caliber. No hiatal hernia. Chest wall: No subcutaneous emphysema. No axillary or supraclavicular adenopathy. Thyroid gland appears normal. ABDOMEN: Solid organs: There is diffuse hepatic steatosis. No liver laceration is seen. Gallbladder appears normal. Biliary system is non-dilated. Pancreas enhances normally, without transection. Spleen is normal in size and enhancement, without lacerations. No adrenal hematomas. Both kidneys enhance normally, without hydronephrosis or lacerations. Peritoneum and bowel: No free fluid or air. Unenhanced bowel loops demonstrate normal wall thickness and caliber. Normal appendix. Nodes and vessels: No retroperitoneal or mesenteric adenopathy. Aorta and inferior vena cava are normal in size and enhancement. Moderate to severe aortic atherosclerotic calcifications. Miscellaneous: No ventral hernias. PELVIS: Genitourinary: Bladder wall thickness is normal. Miscellaneous: No inguinal hernias or adenopathy. Bones: Nondisplaced fractures are seen in the left lateral 3rd, 4th, and 5th ribs. There is a nondisplaced fracture of the tip of the left 12th rib. Nondisplaced fractures of the right posterolateral 8th-10th ribs. Chronic healed fracture of the right 4th rib.Pelvic ring and hip joints appear intact. Chronic compression fractures again seen to the C6, C7, and T2 vertebral bodies. Moderate compression deformities are seen at the T12 and L1 vertebral bodies, of indeterminate age. There is mild 3 mm retropulsion of osseous fragments at the T12 level with mild narrowing of the bony spinal canal. IMPRESSION: 1. Age-indeterminate moderate vertebral compression fractures involving the T12 and L1 vertebral bodies. Mild 3 mm retropulsion of osseous fragments is seen at the T11-12 disc space level with mild narrowing of the bony spinal canal. 2. Chronic compression deformities of the C6, C7, and T2 vertebra. 3. Multiple bilateral nondisplaced rib fractures involving the left 3rd-5th ribs, left 12th rib, and right 8th-10th ribs, of indeterminate age. 4. No acute solid organ injury. 5. Additional chronic findings as indicated in the body of the report. Dictated by: Jt Spencer M.D. on 05/26/2020 at 21:56 Approved by: Jt Spencer M.D. on 05/26/2020 at 22:05 [facility] Narrative Medical decision making narrative: Patient is intoxicated. Did have an elevated alcohol level. He arrived as a full trauma. We did inform in General surgery that the patient was in the emergency department however I did inform them that I would call them again once all the studies returned if they need to come to the emergency department for evaluation. Patient had no airway compromise. Was never hypotensive. Had a complex laceration to his right forehead that was closed as described above. He states that he thinks his last tetanus shot was within the past 3 years. He initially arrived confused about the situation. He was repetitive in his questioning as to why he was here however during his time spent here in the emergency department he did become more clear. He states that he remembers standing at the top of his stairs and losing his balance and falling. He states that he hit his head on the railing. Other than the cut on his head he has no other complaints. He has no rib pain. The CT scan shows multiple rib fractures however he is not tender over any of these possible fractures. I suspect that these are old. He also has known old spinal compression fractures. I did talk with his over the phone who confirmed that he has had spinal fractures in the past. He reports no cervical thoracic or lumbar tenderness. I do not think that any of these findings are new. I did discuss the case with Dr. Mendenhall with neurosurgery at [facility] given the CT report of the 3 mm osseous fragment at the T12 level. He stated that if the patient was neurovascularly intact in had no discomfort that this would not be any finding them to be intervened on by Neurosurgery. Patient's stay in the emergency department was prolonged secondary to the need for the complex laceration repair of his forehead and also awaiting for neuro surgery consultation. The hospital also has very limited bed capability and rather than admit him to the hospital for his initial confusion I felt the keeping him in the emergency department as he was starting to become more clear as to the situation was warranted rather than taking up a bed in the hospital. He was able to stand at the toilet and urinated. 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 His came to the emergency department to pick him up and drove him home. He was given care instructions and return precautions. Both he and his were given this information. He expressed understanding and agreement. Critical Care Time Critical Care Time Critical Care Time: Yes Total Critical Care Time: 35 Attestation: The high probability of a clinically significant, sudden or life threatening deterioration of the neurologic system and was a trauma patient required my full and direct attention, intervention and personal management. The aggregate critical care time was 35 minutes. This time is in addition to time spent performing reported procedures but includes the following: [X] Data Review and interpretation [X] Patient assessment and monitoring of vital signs [X] Documentation [X] Medication orders and management Discharge Plan Departure Patient Disposition: Home Clinical Impression: Alcohol intoxication, Forehead laceration, Fall Instructions: DI for Laceration Repair -- Complex, DI for Trauma Activity Restrictions/Additional Instructions: The stitches that were placed it in the cut in your forehead do need to be removed in 7-10 days. This can either be done by your primary doctor or the walk-in clinic. Until then you can shower like normal. I recommend that when the office is open today you contact your primary provider for a follow-up. You are intoxicated so no driving for the next 24 hours or in the future if you drink intoxicating beverages. Return to the emergency department for any new or worsening symptoms Prescriptions: No Action chlordiazepoxide HCl 25 mg capsule See Rx Instructions .ROUTE .COMPLEX Qty: 32 RF: 0 metoprolol tartrate 50 mg tablet 50 mg PO BID Qty: 60 RF: 0 Referrals: Cris Reyna MD [Primary Care Provider] -
[2020-05-26] MEDS: LIDOCAINE 1% W/EPI 30 ML (21:27)
[2020-05-26 21:28] LABS: COVID19 -Nasal RAPID Negative (Negative)
[2020-05-26 21:29] LABS: Prothrombin Time 11.1 SECONDS (10.1-12.7)
[2020-05-26 21:31] LABS: PTT Partial Thromboplastin Tim 24 SECONDS (26.4-36.2)
[2020-05-26 21:33] LABS: HEMOLYSIS < 15 (0-50); Potassium 3.9 mmol/L (3.4-5.1)
[2020-05-26 21:35] LABS: Alanine Aminotransferase 88 IU/L (<50); Albumin 4.2 g/dL (3.5-5.0); Albumin Globulin Ratio 1.6 (1.0-2.8); Alkaline Phosphatase 101 U/L (38-126); Aspartate Aminotransferase 169 IU/L (17-59); BUN Creatinine Ratio 16.9 (6-22); Bilirubin Total 0.7 mg/dL (0.2-1.3); Blood Urea Nitrogen 13 mg/dL (9-20); Calcium 9.1 mg/dL (8.4-10.2); Carbon Dioxide 24 mmol/L (22-32); Chloride 105 mmol/L (98-107); Creatine Kinase 178 U/L (55-170); Estimated Glomerular Filt Rate > 60.0 mL/min (>60); Globulin 2.7 g/dL (1.7-4.1); Glucose 98 mg/dL (80-110); Lipase 197 U/L (23-300); Sodium 141 mmol/L (137-145); Total Protein 6.9 g/dL (6.3-8.2)
[2020-05-26 21:40] LABS: Add Manual Diff / Slide Review NO; Basophils Absolute Auto 100 /uL (0-100); Eosinophils Absolute Auto 100 /uL (0-450); Eosinophils Percent Auto 1.5 % (2-4); Hematocrit 34.9 % (41-53); Hemoglobin 11.8 g/dL (13.5-17.5); Lymphocytes Absolute Auto 1500 /uL (1100-4500); Lymphocytes Percent Auto 31.7 % (25-40); Mean Corpuscular HGB Conc 33.8 % (30-36); Mean Corpuscular Hemoglobin 36.5 PG (26-34); Mean Corpuscular Volume 107.8 fL (80-100); Monocytes Absolute Auto 500 /uL (0-900); Monocytes Percent Auto 11.6 % (3-14); Neutrophils Absolute Auto 2500 /uL (1500-7000); Neutrophils Percent Auto 53.2 % (50-75); Platelet Count 146 X10^3/uL (150-400); Red Blood Cell Count 3.23 X10^6/uL (4.5-5.9); Red Cell Distribution Width 14.1 % (11.6-14.8); White Blood Cell Count 4.6 X10^3/uL (4.5-11.0)
[2020-05-26 21:42] LABS: Ethanol (ETOH) 382 mg/dL
[2020-05-26 21:46] LABS: Troponin I < 0.012 ng/mL (0.01-0.034)
[2020-05-26 21:49] LABS: CKMB % Relative Index 2.1 % (1.5-5.0); Creatine Kinase MB 3.74 ng/mL (<2.37)
--- NOTE | 2020-05-26 22:10 | PC.NURSE ---
hard cervical collar removed by Dr. Medina.
[2020-05-26 23:02] LABS: UR Morphine/Opiate cutoff 300 Negative (Negative); Ur Creatinine 20 (Normal); Ur Specific Gravity 1.015 (Normal); Urine Amphetamines Negative (Negative); Urine Cocaine Negative (Negative); Urine Methamphetamines Negative (Negative); Urine Phencyclidine Negative (Negative); Urine Tetrahydrocannabinol Negative (Negative); Urine pH 5 (Normal)
[2020-05-26 23:03] LABS: Urine Barbiturates Negative (Negative); Urine Benzodiazepines Negative (Negative); Urine MDMA Negative (Negative); Urine Methadone Negative (Negative); Urine Oxycodone Negative (Negative); Urine Tricyclic Antidepressant Negative (Negative)
[2020-05-26 23:16] LABS: Reflexed Lactate in 2 Hours Y
[2020-05-26 23:49] LABS: Lactate 2HR (Lactic Acid Rflx) 4.1 mmol/L (0.7-2.1)
[2020-05-27 00:16] LABS: Bacteria Urine None Seen; WBC Urine None Seen (0-5/HPF)
[2020-05-27 00:30] LABS: Appearance Urine UA CLEAR; Bilirubin Urine UA NEGATIVE (NEGATIVE); Color Urine UA YELLOW; Glucose Urine UA NEGATIVE (Negative); Ketones Urine UA NEGATIVE (NEGATIVE); Leukocyte Esterase Urine UA NEGATIVE (NEGATIVE); Nitrite Urine UA NEGATIVE (Negative); Occult Blood Urine UA 1+ (Negative); Protein Urine UA NEGATIVE (Negative); Urobilinogen Urine UA 0.2 E.U./dL (0.2); pH Urine UA 5.5 (4.5-8.0)
[2020-05-27 00:41] LABS: Culture Indicated Urine Cult Not Indicated; RBC Urine 0-1/HPF (0-5/HPF)
[2020-05-27 01:05] VITALS: BP 131/69; PULSE 80; RESP 18; O2SAT 98
== END 2020-05-27 01:30 | disposition home or self-care (01) ==
PROVIDERS: Emergency Provider Emergency Medicine; PCP Student in an Organized Health Care Education/Training Program
DX: F10.129 Alcohol abuse with intoxication, unspecified (principal); Y90.8 Blood alcohol level of 240 mg/100 ml or more; S01.81XA Laceration without foreign body of other part of head, initial encounter; W10.9XXA Fall (on) (from) unspecified stairs and steps, initial encounter; Z20.828 Contact with and (suspected) exposure to other viral communicable diseases
CPT/HCPCS: 12014; 36415; 70450; 71045; 71260; 72125; 72170; 74177; 80053; 80305; 80320; 81001; 82550; 82553; 83605; 83690; 84484; 85025; 85610; 85730; 86850; 86900; 86901; 87635; 99285; 99291; 99292; C9803; G0390

== ENCOUNTER 2020-06-19 13:58 | Emergency (ER) | payer MEDICARE, OTHER, SELFPAY ==
[2019-07-03 21:02] VITALS: PULSE 98; RESP 16; O2SAT 98
[2019-12-28 16:42] VITALS: BMI 22.8
[2020-06-19] VITALS (11 sets, daily range): BP systolic 123–155; BP diastolic 78–100; PULSE 91–115; RESP 17–28; TEMP 36.8; O2SAT 91–98; BMI 24.0
--- NOTE | 2020-06-19 14:40 | DI.CT.S_ITS ---
PROCEDURE: CT HEAD/BRAIN WO CON INDICATIONS: etoh frequent falls TECHNIQUE: Noncontrast 4.5 mm thick angled axial sections acquired from the foramen magnum to the vertex, with coronal and sagittal reformats. For radiation dose reduction, the following was used: automated exposure control, adjustment of mA and/or kV according to patient size. COMPARISON: [facility], CT, CT HEAD/BRAIN WO CON, 05/26/2020, 21:14. FINDINGS: Image quality: Excellent. CSF spaces: Basal cisterns are patent. No extra-axial fluid collections. The ventricles are symmetric in size and shape. Brain: No intracranial bleeds or masses. There is cerebral volume loss for age, with resultant ventricular and sulcal prominence. There are periventricular and deep white matter chronic small vessel ischemic changes. There is intracranial internal carotid artery atherosclerosis. Skull and face: Calvarium and visualized facial bones appear intact, without suspicious lesions. Right frontal scalp swelling Sinuses: Visualized sinuses and mastoids are clear. IMPRESSION: Right frontal scalp swelling. No acute intracranial process. Dictated by: Dewyane Todd M.D. on 06/19/2020 at 15:20 Approved by: Dewayne Todd M.D. on 06/19/2020 at 15:23
--- NOTE | 2020-06-19 14:40 | DI.CT.S_ITS ---
PROCEDURE: CT CHEST ABD PEL W CON INDICATIONS: rib pain fall etoh TECHNIQUE: After the administration of intravenous contrast, 5 mm thick sections acquired from the lung apices to the symphysis. 2.5 mm thick coronal and sagittal reformats were acquired. Additional 7 mm thick coronal maximum intensity projection (MIP) reformats acquired through the lungs. Optional 10-minute delayed imaging may be performed from the kidneys to the bladder. For radiation dose reduction, the following was used: automated exposure control, adjustment of mA and/or kV according to patient size. COMPARISON: [facility], CT, CT CHEST ABD PEL W CON, 05/26/2020, 21:14. FINDINGS: CHEST: Lungs: Consolidation seen within the left lower lobe. There also patchy ill-defined and ground-glass opacities in both lower lobes. Airway thickening in keeping with nonspecific bronchitis and/or reactive airways disease. Pleura: No pleural effusions or pneumothorax. Heart: Mild enlargement of the heart. No pericardial effusion identified. There are mild coronary artery calcifications. Chest nodes: Normal. Thyroid gland: Negative Aorta: Normal. Scattered vascular calcifications. Pulmonary arteries: Normal. Esophagus: Normal. ABDOMEN: Liver: Hepatic steatosis is present. Gallbladder: Negative Bile ducts: Normal. Pancreas: Normal. Spleen: Normal. Adrenals: Normal. Kidneys and ureters: No hydronephrosis. Subcentimeter renal foci, statistically cysts, although technically too small to characterize accurately and therefore nonspecific. Stomach and duodenum: Normal. Bowel: Normal. Other: No free fluid or air. Abdominal nodes: Normal. Aorta and IVC: Normal in size. Ventral wall: Normal. PELVIS: Bladder: Normal. Inguinal region: No hernia. Pelvic nodes: Normal. Bones: Spondylytic changes and facet arthropathy. T12 and L1 compression fracture are grossly unchanged. Diffuse osteopenia. There are bilateral subacute-chronic appearing rib fractures, for example involving the left 3rd, 4th, 5th ribs with callus formation. And on the right, there is subtle linear lucency seen within the right posterolateral 9th rib, which could represent subacute fracture. There is mild early callus. Similar in age fracture of the right 8th rib. IMPRESSION: Bilateral rib fractures as detailed above however subacute appearance with some early callus formation. Please correlate clinically. Left lower lobe consolidative opacity which could represent pneumonia versus aspiration. Recommend continued follow-up after treatment to document resolution and exclude underlying abnormal soft tissue/neoplasm. Bibasilar atelectasis/scarring. Airway thickening in keeping with nonspecific bronchitis and/or reactive airways disease. Hepatic steatosis. Elsewhere, no acute abnormality. Additional chronic and incidental findings as above. Dictated by: Dewayne Todd M.D. on 06/19/2020 at 15:32 Approved by: Dewayne Todd M.D. on 06/19/2020 at 15:48
--- NOTE | 2020-06-19 14:40 | DI.CT.S_ITS ---
PROCEDURE: CT CERVICAL SPINE WO CON INDICATIONS: fall etoh TECHNIQUE: Noncontrast 3 mm thick sections acquired from the skull base to the T4 level. Sagittal and coronal reformats were then constructed. For radiation dose reduction, the following was used: automated exposure control, adjustment of mA and/or kV according to patient size. COMPARISON: [facility], CT, CT CERVICAL SPINE WO CON, 12/28/2019, 14:54. [facility], CT, CT CERVICAL SPINE WO CON, 05/26/2020, 21:14. FINDINGS: Image quality: Excellent. Bones: Diffuse osteopenia. Multilevel cervical thoracic spondylosis and facet arthropathy. C7 anterior wedging and height loss appears grossly unchanged since 12/28/19. There is also T2 compression fracture which demonstrates no progressive height loss. Soft tissues: Carotid atherosclerotic plaques incidentally noted. IMPRESSION: No acute fracture. Chronic fractures of C7 and T2, unchanged since 12/28/19. Diffuse osteopenia. Multilevel cervical and thoracic spondylosis, facet arthropathy. Dictated by: Dewayne Todd M.D. on 06/19/2020 at 15:24 Approved by: Dewayne Todd M.D. on 06/19/2020 at 15:30
[2020-06-19 14:45] LABS: Add Manual Diff / Slide Review NO; Basophils Absolute Auto 100 /uL (0-100); Basophils Percent Auto 0.9 % (0-2); Eosinophils Absolute Auto 100 /uL (0-450); Eosinophils Percent Auto 0.9 % (2-4); Hematocrit 34.1 % (41-53); Hemoglobin 11.6 g/dL (13.5-17.5); Lymphocytes Absolute Auto 1000 /uL (1100-4500); Lymphocytes Percent Auto 14.3 % (25-40); Mean Corpuscular HGB Conc 33.9 % (30-36); Mean Corpuscular Hemoglobin 37.1 PG (26-34); Mean Corpuscular Volume 109.5 fL (80-100); Monocytes Absolute Auto 700 /uL (0-900); Monocytes Percent Auto 10.2 % (3-14); Neutrophils Absolute Auto 5300 /uL (1500-7000); Neutrophils Percent Auto 73.7 % (50-75); Platelet Count 139 X10^3/uL (150-400); Red Blood Cell Count 3.11 X10^6/uL (4.5-5.9); Red Cell Distribution Width 13.6 % (11.6-14.8); White Blood Cell Count 7.2 X10^3/uL (4.5-11.0)
--- NOTE | 2020-06-19 14:45 | ED_ITS ---
HPI - Fall General Chief Complaint: Trauma Stated Complaint: fall last night, lot of abdomen/back pain Time Seen by Provider: 06/19/20 14:33 Source: patient Mode of arrival: Ambulatory Limitations: no limitations History of Present Illness HPI Narrative: Patient is a 74-year-old male with history of atrial fibrillat ion, alcohol abuse presenting after a fall last evening. He says he slipped in the shower and fell his heard him home. Today now complaining of bilateral rib pain. However he fell 2 weeks ago he has an obvious healing wound on his forehead and bilateral facial contusions. He says he is trying to quit drinking and he has done that in the past but does have history of alcohol withdrawal sei zures and delirium tremens. It is possible he had an alcoholic drink last night but is not 100% otherwise he remembers drinking on Monday he has intentionally trying to stop. He denies any nausea or vomiting. He does have some obvious tremors now. MD complaint: fall Onset (ago): hour(s) Fall from: standing Fall witnessed: no Place fall occurred: home Loss of consciousness: none Context: tripped/slipped and alcohol use Related Data Previous Rx's Medication Instructions Recorded chlordiazepoxide HCl See Rx Instructions .ROUTE 01/21/20 .COMPLEX #32 cap metoprolol tartrate 50 mg PO BID #60 tab 01/21/20 Allergies Allergy/AdvReac Type Severity Reaction Status Date / Time amoxicillin [AMOXICILLIN] Allergy Severe SWOLLEN JAW Verified 06/19/20 14:28 clindamycin [CLINDAMYCIN] AdvReac Severe C-DIFF Verified 06/19/20 14:28 Review of Systems Review of Systems ROS Unobtainable: All systems reviewed & are unremarkable except as noted in HPI and below Constitutional Constitutional: Denies chills, Denies fever(s), Reports frequent falls and Denies weakness ENT Ears, Nose, Mouth, and Throat: Denies change in voice, Denies vertigo, Denies dizziness, Denies neck pain and Denies sore throat Cardiovascular Cardiovascular: Denies chest pain, Denies irregular heart rhythm, Denies lightheadedness, Denies palpitations and Denies orthopnea Respiratory Respiratory: Reports as per HPI, Denies chest congestion and Denies cough Musculoskeletal Musculoskeletal: Reports as per HPI and Denies neck pain Integumentary/Breasts Skin/Breast: Denies pruritus, Denies erythema, Denies rash and Denies wounds Neurologic Neurologic: Reports confusion, Denies vertigo, Denies dizziness, Reports frequent falls and Denies weakness Psychiatric Psychiatric: Reports confusion Endocrine Endocrine: Denies palpitations Patient History Medical History (Updated 06/19/20 @ 16:46 by Dawn Paez DO) Alcohol abuse Atrial fibrillation Gout HTN (hypertension) Social History marital status: household members: spouse occupational status: previously employed Smoking Status: Former smoker alcohol intake: current substance use type: does not use Smoking Status: Former smoker alcohol intake frequency: 3 or more drinks per day Alcohol type: hard liquor Substance Use Type: does not use Exam Initial Vital Signs Initial Vital Signs: Vital Signs Pulse Rate 107 H 06/19/20 14:27 Respiratory Rate 25 H 06/19/20 14:27 Pulse Oximetry 97 06/19/20 14:27 GENERAL: Alert 74-year-old male mild tremors confusion HEENT: Head healing scab over right side of forehead no crepitations or depression, EOMI, pupils reactive, face symmetric, moist mucous membranes, no hemotympanum, no septal hematoma NECK: Supple, full range of motion, no step-offs, nontender on vertebrae CARDIOVASCULAR: Regular rate and rhythm without murmurs, rubs or gallops. RESPIRATORY: Breath sounds equal bilaterally, no wheezes rales or rhonchi. No crepitations, no subcutaneous air, chest is nontender, no signs of trauma, bilateral rib pain no paradoxical movement ABDOMEN: Soft, nontender. Normoactive bowel sounds all 4 quadrants. No guarding or rebound. BACK: Nontender vertebrae, no step-offs, no contusions PELVIS: stable. EXTREMITIES: Normal range of motion, no clubbing or edema. Right upper extremity: Within normal limits] Left upper extremity: Within normal limits Right lower extremity: Within normal limits Left lower extremity:Within normal limits NEUROLOGICAL: Cranial nerves II through XII grossly intact. Normal gait and speech. SKIN: Warm, dry, no petechiae, no rashes or lesions, no contusions or ecchymosis Course Orders Ordered: ED Orders 06/19/20 14:35 Complete Blood Count AUTO DIFF Stat 06/19/20 14:40 CT cervical spine wo con Stat CT chest abd pel w con Stat CT head/brain wo con Stat 06/19/20 14:50 Comprehensive Metabolic Panel Stat Ethanol (ETOH) Stat Lactate (Lactic Acid) Stat Type and Screen Stat Discontinued Medications Ketorolac Tromethamine (Ketorolac 30 Mg/Ml Vial) 15 mg IV NOW ONE Stop: 06/19/20 16:40 Last Admin: 06/19/20 16:57 Dose: 15 mg Documented by: MASON Lorazepam (Lorazepam 2 Mg/Ml Inj) 1 mg IV NOW ONE Stop: 06/19/20 14:41 Last Admin: 06/19/20 14:53 Dose: 1 mg Documented by: MASON Phenobarbital (Phenobarbital 65 Mg/Ml Vial) 130 mg IV NOW ONE Stop: 06/19/20 16:42 Last Admin: 06/19/20 16:57 Dose: 130 mg Documented by: MASON Vital Signs Vital signs: Vital Signs - 8 hr 06/19/20 14:27 06/19/20 14:28 06/19/20 14:30 Temperature 98.3 F Pulse Rate 107 H 115 H 107 H Respiratory Rate 25 H 28 H 23 Blood Pressure 143/87 H Pulse Oximetry 97 97 98 06/19/20 15:04 06/19/20 15:05 06/19/20 15:16 Temperature Pulse Rate 99 H 108 H 100 H Respiratory Rate 17 19 20 Blood Pressure 149/100 H 123/93 H Pulse Oximetry 96 95 91 06/19/20 15:30 06/19/20 16:00 06/19/20 16:01 Temperature Pulse Rate 104 H 91 H 102 H Respiratory Rate 18 17 19 Blood Pressure 129/94 H 155/88 H Pulse Oximetry 94 96 97 06/19/20 16:30 06/19/20 17:00 Temperature Pulse Rate 95 H 92 H Respiratory Rate 18 21 Blood Pressure 149/89 H 147/78 H Pulse Oximetry 94 94 MDM - Fall Lab Data Attestation: I reviewed the patient's lab results. Result diagrams: 06/19/20 14:35 06/19/20 14:50 Labs: Lab Results 06/19/20 06/19/20 06/19/20 Range/Units 14:35 14:50 14:50 WBC 7.2 (4.5-11.0) X10^3/uL RBC 3.11 L (4.5-5.9) X10^6/uL Hgb 11.6 L (13.5-17.5) g/dL Hct 34.1 L (41-53) % MCV 109.5 H (80-100) fL MCH 37.1 H (26-34) PG MCHC 33.9 (30-36) % RDW 13.6 (11.6-14.8) % Plt Count 139 L (150-400) X10^3/uL Neut % (Auto) 73.7 (50-75) % Lymph % (Auto) 14.3 L (25-40) % [place] % (Auto) 10.2 (3-14) % Eos % (Auto) 0.9 L (2-4) % Baso % (Auto) 0.9 (0-2) % Neut # (Auto) 5300 (8747-2656) /uL Lymph # (Auto) 1000 L (7601-4686) /uL [place] # (Auto) 700 (0-900) /uL Eos # (Auto) 100 (0-450) /uL Baso # (Auto) 100 (0-100) /uL Sodium 136 L (137-145) mmol/L Potassium 4.3 (3.4-5.1) mmol/L Chloride 104 (98-107) mmol/L Carbon Dioxide 24 (22-32) mmol/L BUN 15 (9-20) mg/dL Creatinine 0.83 (0.66-1.25) mg/dL Estimated GFR > 60.0 (>60) mL/min BUN/Creatinine Ratio 18.1 (6-22) Glucose 106 (80-110) mg/dL Lactate 1.7 (0.7-2.1) mmol/L Calcium 9.2 (8.4-10.2) mg/dL Total Bilirubin 1.3 (0.2-1.3) mg/dL AST 71 H (17-59) IU/L ALT 48 (<50) IU/L Alkaline Phosphatase 74 (38-126) U/L Total Protein 6.8 (6.3-8.2) g/dL Albumin 4.0 (3.5-5.0) g/dL Globulin 2.8 (1.7-4.1) g/dL Albumin/Globulin Ratio 1.4 (1.0-2.8) Ethyl Alcohol ( - 10) mg/dL Blood Type Antibody Screen 06/19/20 06/19/20 Range/Units 14:50 14:50 WBC (4.5-11.0) X10^3/uL RBC (4.5-5.9) X10^6/uL Hgb (13.5-17.5) g/dL Hct (41-53) % MCV (80-100) fL MCH (26-34) PG MCHC (30-36) % RDW (11.6-14.8) % Plt Count (150-400) X10^3/uL Neut % (Auto) (50-75) % Lymph % (Auto) (25-40) % [place] % (Auto) (3-14) % Eos % (Auto) (2-4) % Baso % (Auto) (0-2) % Neut # (Auto) (8415-7062) /uL Lymph # (Auto) (6642-7885) /uL [place] # (Auto) (0-900) /uL Eos # (Auto) (0-450) /uL Baso # (Auto) (0-100) /uL Sodium (137-145) mmol/L Potassium (3.4-5.1) mmol/L Chloride (98-107) mmol/L Carbon Dioxide (22-32) mmol/L BUN (9-20) mg/dL Creatinine (0.66-1.25) mg/dL Estimated GFR (>60) mL/min BUN/Creatinine Ratio (6-22) Glucose (80-110) mg/dL Lactate (0.7-2.1) mmol/L Calcium (8.4-10.2) mg/dL Total Bilirubin (0.2-1.3) mg/dL AST (17-59) IU/L ALT (<50) IU/L Alkaline Phosphatase (38-126) U/L Total Protein (6.3-8.2) g/dL Albumin (3.5-5.0) g/dL Globulin (1.7-4.1) g/dL Albumin/Globulin Ratio (1.0-2.8) Ethyl Alcohol < 10 ( - 10) mg/dL Blood Type A Positive Antibody Screen Negative Imaging Data CT scan - head: Radiologist's Impression: PROCEDURE: CT HEAD/BRAIN WO CON INDICATIONS: trauma TECHNIQUE: Noncontrast 4.5 mm thick angled axial sections acquired from the foramen magnum to the vertex, with coronal and sagittal reformats. For radiation dose reduction, the following was used: automated exposure control, adjustment of mA and/or kV according to patient size. COMPARISON: [facility], CT, CT HEAD/BRAIN WO CON, 12/28/2019, 14:54. [facility], CT, CT HEAD/BRAIN WO CON, 07/03/2019, 20:13. FINDINGS: Image quality: Excellent. CSF spaces: Basal cisterns are patent. No extra-axial fluid collections. The ventricles are symmetric in size and shape. Brain: No acute intracranial hemorrhage or mass effect. There is cerebral volume loss for age, with resultant ventricular and sulcal prominence. There are periventricular and deep white matter chronic small vessel ischemic changes. There is intracranial internal carotid artery atherosclerosis. Skull and face: A right frontal scalp hematoma is seen. No underlying skull fracture is identified. Calvarium and visualized facial bones appear intact, without suspicious lesions. Sinuses: Mild mucosal thickening is seen in the right ethmoid air cells and right maxillary sinus. The remaining paranasal sinuses and the mastoid air cells are clear. IMPRESSION: Small right frontal scalp hematoma. No acute intracranial hemorrhage or mass effect. No skull fracture. Dictated by: Jt Spencer M.D. on 05/26/2020 at 21:48 CT - cervical spine: Radiologist's Impression: PROCEDURE: CT CERVICAL SPINE WO CON INDICATIONS: fall etoh TECHNIQUE: Noncontrast 3 mm thick sections acquired from the skull base to the T4 level. Sagittal and coronal reformats were then constructed. For radiation dose reduction, the following was used: automated exposure control, adjustment of mA and/or kV according to patient size. COMPARISON: [facility], CT, CT CERVICAL SPINE WO CON, 12/28/2019, 14:54. [facility], CT, CT CERVICAL SPINE WO CON, 05/26/2020, 21:14. FINDINGS: Image quality: Excellent. Bones: Diffuse osteopenia. Multilevel cervical thoracic spondylosis and facet arthropathy. C7 anterior wedging and height loss appears grossly unchanged since 12/28/19. There is also T2 compression fracture which demonstrates no progressive height loss. Soft tissues: Carotid atherosclerotic plaques incidentally noted. IMPRESSION: No acute fracture. Chronic fractures of C7 and T2, unchanged since 12/28/19. Diffuse osteopenia. Multilevel cervical and thoracic spondylosis, facet arthropathy. Dictated by: Dewayne Todd M.D. on 06/19/2020 at 15:24 CT scan - chest: Radiologist's Impression: PROCEDURE: CT CHEST ABD PEL W CON INDICATIONS: rib pain fall etoh TECHNIQUE: After the administration of intravenous contrast, 5 mm thick sections acquired from the lung apices to the symphysis. 2.5 mm thick coronal and sagittal reformats were acquired. Additional 7 mm thick coronal maximum intensity projection (MIP) reformats acquired through the lungs. Optional 10-minute delayed imaging may be performed from the kidneys to the bladder. For radiation dose reduction, the following was used: automated exposure control, adjustment of mA and/or kV according to patient size. COMPARISON: [facility], CT, CT CHEST ABD PEL W CON, 05/26/2020, 21:14. FINDINGS: CHEST: Lungs: Consolidation seen within the left lower lobe. There also patchy ill- defined and ground-glass opacities in both lower lobes. Airway thickening in keeping with nonspecific bronchitis and/or reactive airways disease. Pleura: No pleural effusions or pneumothorax. Heart: Mild enlargement of the heart. No pericardial effusion identified. There are mild coronary artery calcifications. Chest nodes: Normal. Thyroid gland: Negative Aorta: Normal. Scattered vascular calcifications. Pulmonary arteries: Normal. Esophagus: Normal. ABDOMEN: Liver: Hepatic steatosis is present. Gallbladder: Negative Bile ducts: Normal. Pancreas: Normal. Spleen: Normal. Adrenals: Normal. Kidneys and ureters: No hydronephrosis. Subcentimeter renal foci, statistically cysts, although technically too small to characterize accurately and therefore nonspecific. Stomach and duodenum: Normal. Bowel: Normal. Other: No free fluid or air. Abdominal nodes: Normal. Aorta and IVC: Normal in size. Ventral wall: Normal. PELVIS: Bladder: Normal. Inguinal region: No hernia. Pelvic nodes: Normal. Bones: Spondylytic changes and facet arthropathy. T12 and L1 compression fracture are grossly unchanged. Diffuse osteopenia. There are bilateral subacute-chronic appearing rib fractures, for example involving the left 3rd, 4th, 5th ribs with callus formation. And on the right, there is subtle linear lucency seen within the right posterolateral 9th rib, which could represent subacute fracture. There is mild early callus. Similar in age fracture of the right 8th rib. IMPRESSION: Bilateral rib fractures as detailed above however subacute appearance with some early callus formation. Please correlate clinically. Left lower lobe consolidative opacity which could represent pneumonia versus aspiration. Recommend continued follow-up after treatment to document resolution and exclude underlying abnormal soft tissue/neoplasm. Bibasilar atelectasis/scarring. Airway thickening in keeping with nonspecific bronchitis and/or reactive airways disease. Hepatic steatosis. Elsewhere, no acute abnormality. Additional chronic and incidental findings as above. Dictated by: Dewayne Todd M.D. on 06/19/2020 at 15:32 MDM Narrative Medical decision making narrative: Patient is trying to a rehab facility. It is questionable if he had an alcoholic beverage last evening or not. He does have a history of alcohol withdrawal seizures. At this time would not give him benzodiazepine taper a have given him Ativan and half dose of phenobarbital in the ED to help prevent some of the shaking. At this time I recommend he decrease his drinking and till he gets into rehab where he can be monitored. S martin and his understand this he has a severe withdrawal seizures in the past. As of today no new injuries from his falls. He has multiple old fractures of ribs and neck but no new fractures. Discharge Plan Departure Patient Disposition: Home Clinical Impression: Alcohol abuse, Fall Instructions: DI for Alcohol Use Disorder Activity Restrictions/Additional Instructions: *You have been diagnosed with alcohol abuse, fall *What to do: You have a history of alcohol withdrawal seizures do not stop drinking cold turkey. This is something that needs to be done under medical supervision. Please continue drinking at least half of what you were drinking. *Continue to take medications as directed *Follow up with your primary care provider in 2-3 days *Return to ER if you should have seizure, increasing falls such as or any new, worsening or concerning symptoms Prescriptions: No Action chlordiazepoxide HCl 25 mg capsule See Rx Instructions .ROUTE .COMPLEX Qty: 32 RF: 0 metoprolol tartrate 50 mg tablet 50 mg PO BID Qty: 60 RF: 0 Referrals: Cris Reyna MD [Primary Care Provider] -
[2020-06-19] MEDS: LORazepam 2 MG/ML INJ 1 MG IV (14:53)
[2020-06-19 15:18] LABS: Ethanol (ETOH) < 10 mg/dL; Lactate (Lactic Acid) 1.7 mmol/L (0.7-2.1)
[2020-06-19 15:19] LABS: Alanine Aminotransferase 48 IU/L (<50); Albumin Globulin Ratio 1.4 (1.0-2.8); Alkaline Phosphatase 74 U/L (38-126); Aspartate Aminotransferase 71 IU/L (17-59); BUN Creatinine Ratio 18.1 (6-22); Bilirubin Total 1.3 mg/dL (0.2-1.3); Blood Urea Nitrogen 15 mg/dL (9-20); Calcium 9.2 mg/dL (8.4-10.2); Carbon Dioxide 24 mmol/L (22-32); Chloride 104 mmol/L (98-107); Estimated Glomerular Filt Rate > 60.0 mL/min (>60); Globulin 2.8 g/dL (1.7-4.1); Glucose 106 mg/dL (80-110); Potassium 4.3 mmol/L (3.4-5.1); Sodium 136 mmol/L (137-145); Total Protein 6.8 g/dL (6.3-8.2)
[2020-06-19 15:26] LABS: HEMOLYSIS 61 (0-50)
[2020-06-19] MEDS: PHENobarbital 65 MG/ML VIAL 130 MG IV (16:57)
[2020-06-19] MEDS: KETOROLAC 30 MG/ML VIAL 15 MG IV (16:57)
== END 2020-06-19 17:39 | disposition home or self-care (01) ==
PROVIDERS: Emergency Provider Emergency Medicine; PCP Student in an Organized Health Care Education/Training Program
DX: F10.10 Alcohol abuse, uncomplicated (principal); R07.81 Pleurodynia; S09.90XA Unspecified injury of head, initial encounter; W19.XXXA Unspecified fall, initial encounter
CPT/HCPCS: 36415; 70450; 71260; 72125; 74177; 80053; 80320; 83605; 85025; 86850; 86900; 86901; 96374; 96375; 99285; J1885; J2060; J2560

== ENCOUNTER 2020-07-31 22:37 | Observation (INO) | payer MEDICARE, OTHER, SELFPAY ==
[2019-07-03 21:02] VITALS: PULSE 98; RESP 16; O2SAT 98
[2019-12-28 16:42] VITALS: BMI 22.8
[2020-07-31] VITALS (8 sets, daily range): BP systolic 139–179; BP diastolic 86–114; PULSE 73–115; RESP 16–29; TEMP 37.1; O2SAT 95–96
--- NOTE | 2020-07-31 22:48 | ED_ITS ---
HPI - Chest Pain General Chief Complaint: Arrhythmia/Palpitations Stated Complaint: rapid heartrate Time Seen by Provider: 07/31/20 22:45 Source: patient Mode of arrival: Ambulatory Limitations: no limitations History of Present Illness HPI narrative: 75-year-old male with a history of extensive alcohol abuse and AF ib with RVR presents with rapid, irregular heart rate with dizziness, weakness and lightheadedness as well as chest pressure that started at 7:30 p.m. this evening. He is in the greatest historian and does not know if he is normally in atrial fibrillation or goes in an out. He does not take any anticoagulation. He denies any change in medications or recent travel. He denies any nausea or vomiting MD complaint: chest pain Onset (ago): hour(s) Duration: constant Onset: during rest Pain location: substernal Severity: moderate Quality: tightness and aching Pain radiation: none Exacerbating factors: nothing Related Data Previous Rx's Medication Instructions Recorded chlordiazepoxide HCl See Rx Instructions .ROUTE 01/21/20 .COMPLEX #32 cap metoprolol tartrate 50 mg PO BID #60 tab 01/21/20 Allergies Allergy/AdvReac Type Severity Reaction Status Date / Time amoxicillin [AMOXICILLIN] Allergy Severe SWOLLEN JAW Verified 06/19/20 14:28 clindamycin [CLINDAMYCIN] AdvReac Severe C-DIFF Verified 06/19/20 14:28 Review of Systems Constitutional Constitutional: Denies chills, Denies fatigue, Denies fever(s), Denies frequent falls, Denies lethargy and Denies weakness Eyes Eyes: Denies change in vision, Denies eye discharge, Denies irritation and Denies loss of vision ENT Ears, Nose, Mouth, and Throat: Denies change in voice, Denies dizziness, Denies neck pain, Denies sore throat and Denies throat swelling Cardiovascular Cardiovascular: Reports chest pain, Reports irregular heart rhythm, Reports lightheadedness, Reports palpitations, Denies dyspnea, Denies dyspnea on exertion and Denies orthopnea Respiratory Respiratory: Denies cough, Denies dyspnea, Denies dyspnea on exertion and Denies wheezing Gastrointestinal Gastrointestinal: Denies abdominal pain, Denies change in bowel habits, Denies diarrhea, Denies nausea and Denies vomiting Musculoskeletal Musculoskeletal: Denies neck pain and Denies numbness Integumentary/Breasts Skin/Breast: Denies pruritus, Denies erythema, Denies rash and Denies wounds Neurologic Neurologic: Denies behavioral changes, Denies confusion, Denies dizziness, Denies frequent falls, Denies loss of vision, Denies numbness and Denies weakness Psychiatric Psychiatric: Denies anxiety, Denies behavioral changes, Denies confusion, Denies depression, Denies homicidal ideation and Denies suicidal ideation Endocrine Endocrine: Denies fatigue, Denies flushing and Reports palpitations Hematologic/Lymphatic Hematologic/Lymphatic: Denies easy bruising Allergic/Immunologic Allergic/Immunologic: Denies urticaria, Denies throat swelling and Denies wheezing Patient History Medical History (Updated 08/01/20 @ 00:42 by Laureen Cárdenas RN) Alcohol abuse Atrial fibrillation Gout HTN (hypertension) Social History marital status: household members: spouse occupational status: previously employed Smoking Status: Former smoker alcohol intake: current substance use type: does not use Smoking Status: Former smoker alcohol intake frequency: 3 or more drinks per day Alcohol type: hard liquor Substance Use Type: does not use Exam Narrative Exam Narrative: GENERAL: [75] year old patient appears stated age. Well- developed patient, in mild distress. HEAD: Atraumatic. Normocephalic. EYES: Pupils equal round and reactive. Extraocular motions intact. No scleral icterus. No injection or drainage. ENT: Nose without bleeding, purulent drainage. Throat without erythema, tonsillar hypertrophy or exudate. Airway patent. NECK: Trachea midline. Non tender CARDIOVASCULAR: Tachycardic and irregular rhythm without murmurs, gallops, or rubs. RESPIRATORY: Clear to auscultation. Breath sounds equal bilaterally. No wheezes, rales, or rhonchi. GASTROINTESTINAL: Abdomen soft, non-tender, nondistended. EXTREMITIES: No edema or joint tenderness. BACK: Nontender without deformity or crepitance. No flank tenderness. NEURO: AOx3. SKIN: No rash or erythema of visible areas Initial Vital Signs Initial Vital Signs: Vital Signs Pulse Rate 113 H 07/31/20 22:45 Respiratory Rate 24 07/31/20 22:45 Pulse Oximetry 96 07/31/20 22:45 Course Course Course Narrative: Initially patient given metoprolol through the IV given his history of taking metoprolol. This did little to change his rate if anything. After 3 doses I switched to Cardizem push followed by drip and his rate is controlled in the 80s. Patient no longer having pressure or pain, just palpitations. call to Dr. Nolan (Cardiology), note suggests chronic afib. Not candidate for cardioversion, just recommends Orders Ordered: ED Orders 07/31/20 22:45 Complete Blood Count AUTO DIFF Stat Comprehensive Metabolic Panel Stat NT-proBNP (BNP-Adult 18+) Stat Troponin & CK Cardiac Panel Stat 07/31/20 22:51 XR chest 1V Stat 07/31/20 23:29 COVID19 - ADMIT ([employer] swab/PCR) Stat Diltiazem HCl 125 mg/ Sodium (Chloride) 125 mls @ 5 mls/hr IV TITRATE [facility]; Protocol Last Titration: 08/01/20 00:38 Dose: 5 mg/hr, 5 mls/hr Documented by: Admin: 07/31/20 23:45 Dose: 5 mg/hr, 5 mls/hr Documented by: RAJ Discontinued Medications Diltiazem HCl (Diltiazem 5 Mg/Ml Sdv) 10 mg IV NOW ONE Stop: 07/31/20 23:20 Last Admin: 07/31/20 23:27 Dose: 10 mg Documented by: RAJ Metoprolol Tartrate (Metoprolol Tartrate 5 Mg/5 Ml Inj) 5 mg IV Q5M MIKEL Stop: 07/31/20 23:11 Last Admin: 07/31/20 23:10 Dose: 5 mg Documented by: Admin: 07/31/20 23:04 Dose: 5 mg Documented by: Admin: 07/31/20 22:55 Dose: 5 mg Documented by: RAJ Vital Signs Vital signs: Vital Signs - 8 hr 07/31/20 22:45 07/31/20 22:46 07/31/20 22:49 Temperature 98.7 F Pulse Rate 113 H 108 H 115 H Respiratory Rate 24 29 H 16 Blood Pressure 178/114 H 139/105 H Pulse Oximetry 96 95 96 07/31/20 23:00 07/31/20 23:09 07/31/20 23:15 Temperature Pulse Rate 115 H 113 H 113 H Respiratory Rate 22 22 19 Blood Pressure 159/110 H 159/112 H 158/102 H Pulse Oximetry 95 96 96 07/31/20 23:30 07/31/20 23:45 08/01/20 00:00 Temperature Pulse Rate 111 H 73 82 Respiratory Rate 19 22 24 Blood Pressure 179/98 H 144/86 H 141/86 H Pulse Oximetry 96 95 96 MDM - Chest Pain Lab Data Result diagrams: 07/31/20 22:45 07/31/20 22:45 Labs: Lab Results 07/31/20 07/31/20 07/31/20 Range/Units 22:45 22:45 23:29 WBC 8.4 (4.5-11.0) X10^3/uL RBC 3.92 L (4.5-5.9) X10^6/uL Hgb 13.0 L (13.5-17.5) g/dL Hct 39.6 L (41-53) % MCV 100.9 H (80-100) fL MCH 33.3 (26-34) PG MCHC 33.0 (30-36) % RDW 13.9 (11.6-14.8) % Plt Count 186 (150-400) X10^3/uL Neut % (Auto) 76.1 H (50-75) % Lymph % (Auto) 15.8 L (25-40) % [place] % (Auto) 6.1 (3-14) % Eos % (Auto) 1.0 L (2-4) % Baso % (Auto) 1.0 (0-2) % Neut # (Auto) 6400 (1534-9452) /uL Lymph # (Auto) 1300 (9730-0661) /uL [place] # (Auto) 500 (0-900) /uL Eos # (Auto) 100 (0-450) /uL Baso # (Auto) 100 (0-100) /uL Sodium 142 (137-145) mmol/L Potassium 4.7 (3.4-5.1) mmol/L Chloride 107 (98-107) mmol/L Carbon Dioxide 24 (22-32) mmol/L BUN 14 (9-20) mg/dL Creatinine 1.06 (0.66-1.25) mg/dL Estimated GFR > 60.0 (>60) mL/min BUN/Creatinine Ratio 13.2 (6-22) Glucose 118 H (80-110) mg/dL Calcium 9.2 (8.4-10.2) mg/dL Total Bilirubin 0.4 (0.2-1.3) mg/dL AST 37 (17-59) IU/L ALT 17 (<50) IU/L Alkaline Phosphatase 65 (38-126) U/L Total Creatine Kinase 119 (55-170) U/L CK-MB (CK-2) 1.91 (<2.37) ng/mL CK-MB (CK-2) Rel Index 1.6 (1.5-5.0) % Troponin I < 0.012 (0.01-0.034) ng/mL NT-Pro-B Natriuret Pep 776 H (<125) pg/mL Total Protein 7.1 (6.3-8.2) g/dL Albumin 4.2 (3.5-5.0) g/dL Globulin 2.9 (1.7-4.1) g/dL Albumin/Globulin Ratio 1.4 (1.0-2.8) SARS-CoV-2 (PCR) Negative (Negative) Discharge Plan Departure Patient Disposition: Admitted As Inpatient Clinical Impression: Atrial fibrillation with rapid ventricular response Admit Date/Time: 08/01/20 00:13 Admit Provider: Kim Kendrick
--- NOTE | 2020-07-31 22:51 | DI.RAD.S_ITS ---
PROCEDURE: XR CHEST 1V INDICATIONS: chest pain, SOB, rapid atrial fib TECHNIQUE: One view of the chest was acquired. COMPARISON: [facility], CR, XR CHEST 1V, 05/26/2020, 21:04. FINDINGS: Surgical changes and devices: None. Lungs and pleura: Lungs are clear. No pleural effusions or pneumothorax. Mediastinum: Mediastinal contours appear normal. Heart size is normal. Bones and chest wall: No suspicious bony lesions. Overlying soft tissues appear unremarkable. IMPRESSION: No evidence acute pulmonary process. Comment: Final report is concordant with preliminary interpretation provided by [facility]. Dictated by: Flex Garcia M.D. on 08/01/2020 at 6:48 Approved by: Flex Garcia M.D. on 08/01/2020 at 6:48
[2020-07-31] MEDS: METOPROLOL TARTRATE 5 MG/5 ML INJ IV ×3 (22:55→23:10)
[2020-07-31 23:03] LABS: Add Manual Diff / Slide Review NO; Basophils Absolute Auto 100 /uL (0-100); Eosinophils Absolute Auto 100 /uL (0-450); Hematocrit 39.6 % (41-53); Lymphocytes Absolute Auto 1300 /uL (1100-4500); Lymphocytes Percent Auto 15.8 % (25-40); Mean Corpuscular Hemoglobin 33.3 PG (26-34); Mean Corpuscular Volume 100.9 fL (80-100); Monocytes Absolute Auto 500 /uL (0-900); Monocytes Percent Auto 6.1 % (3-14); Neutrophils Absolute Auto 6400 /uL (1500-7000); Neutrophils Percent Auto 76.1 % (50-75); Platelet Count 186 X10^3/uL (150-400); Red Blood Cell Count 3.92 X10^6/uL (4.5-5.9); Red Cell Distribution Width 13.9 % (11.6-14.8); White Blood Cell Count 8.4 X10^3/uL (4.5-11.0)
[2020-07-31 23:08] LABS: Alanine Aminotransferase 17 IU/L (<50); Albumin 4.2 g/dL (3.5-5.0); Albumin Globulin Ratio 1.4 (1.0-2.8); Alkaline Phosphatase 65 U/L (38-126); Aspartate Aminotransferase 37 IU/L (17-59); BUN Creatinine Ratio 13.2 (6-22); Bilirubin Total 0.4 mg/dL (0.2-1.3); Blood Urea Nitrogen 14 mg/dL (9-20); Calcium 9.2 mg/dL (8.4-10.2); Carbon Dioxide 24 mmol/L (22-32); Chloride 107 mmol/L (98-107); Creatine Kinase 119 U/L (55-170); Estimated Glomerular Filt Rate > 60.0 mL/min (>60); Globulin 2.9 g/dL (1.7-4.1); Glucose 118 mg/dL (80-110); HEMOLYSIS 36 (0-50); Potassium 4.7 mmol/L (3.4-5.1); Sodium 142 mmol/L (137-145); Total Protein 7.1 g/dL (6.3-8.2)
[2020-07-31 23:19] LABS: NT-proBNP (BNP-Adult 18+) 776 pg/mL (<125); Troponin I < 0.012 ng/mL (0.01-0.034)
[2020-07-31 23:23] LABS: CKMB % Relative Index 1.6 % (1.5-5.0); Creatine Kinase MB 1.91 ng/mL (<2.37)
[2020-07-31] MEDS: dilTIAZem 5 MG/ML SDV 10 MG IV (23:27)
[2020-07-31] MEDS: dilTIAZem 125 MG in SODIUM CHLORIDE 0.9% 100 ML IV (23:45)
--- NOTE | 2020-07-31 23:51 | PC.NURSE ---
Rate controlled with Diltiazem. Pt still states he feels the arrhythmia but still denies actual chest pain.
[2020-08-01] VITALS (16 sets, daily range): BP systolic 122–158; BP diastolic 58–98; PULSE 62–88; RESP 14–32; TEMP 36.3–36.9; O2SAT 93–98; BMI 24.7
[2020-08-01 00:25] LABS: COVID19 - ADMIT (NP swab/PCR) Negative (Negative)
--- NOTE | 2020-08-01 01:54 | PC.NURSE ---
Addendum entered by Savanna Iniguez R.N. 08/01/20 06:59: 0655- Diltiazem gtt turned off. Patient heart rate under 60 periodically. Will restart if heart rate rises above 100. Will monitor. Original Note: 0100- Patient admitted to room 227. A/O x3 but is forgetful. Bed alarm on. Diltiazem gtt infusing at 5mg/hr. Heart rate controlled. VSS wnl. Patient declines to put any valuables in the safe. updated on condition. is in [place]. Patient denies chest discomfort. Oriented to the room, bed controls and plan of care. Will monitor.
--- NOTE | 2020-08-01 08:52 | CM.DANOTE ---
DCP: Case received, EMR reviewed and met with patient. Introduced self and role. Was able to obtain information from patient regarding his baseline activity status prior to hospitalization. DCP assessment completed with information currently available. Patient s a 75 year old male who admitted early this morning to the care of the hospitalist team. PCP: Dr. Reyna. Payer: confirmed: Medicare/[employer]. Patient came to the hospital via private vehicle secondary to having chest pressure, and rapid heart rate. Patient holds diagnosis of atrial fibrillation with rapid RVR. He is here for a cardiac work up. Patient also has history of alcohol abuse, and had been in rehab in the past. He had also been given resources at last hospital visit. Met with patient in his room. He was sitting up in his bed, alert and oriented. Confirmed that he resides in [place] with his spouse, Marya. He is independent at his baseline, and indicated that he is still driving. P: DCP to continue to follow. Will be available for any resources needed. He should be able to go home when he is deemed medically stable. Dahiana Greer RN/Manager Transition
--- NOTE | 2020-08-01 08:54 | PM.HP.1 ---
History of Present Illness History of Present Illness Date Patient Seen: 08/01/20 Time Patient Seen: 09:15 Chief complaint: rapid heartrate Narrative: Pt is a 75yo man with atrial fibrillation, systolic congestive heart failure, hypertension, and significant alcoholism who presented with chest pressure and palpitations. The patient reports that yesterday evening he started to feel a lower retrosternal chest pressure. He felt that his heart was racing at that time. He denies any radiation of the pain. He denies any associated nausea, diaphoresis, SOB. He denies any recent LE edema. He was sitting reading when the pain first started. He states that he last had a similar sensation around 6 months ago and only lasted around 10 minutes. This episode persisted and so he came to the emergency room for evaluation. In the ER, he was found to be in atrial fibrillation with RVR. He received p.o. metoprolol and then p.o. diltiazem and was ultimately started on a diltiazem drip to control his heart rate. His initial cardiac workup was otherwise negative with negative troponins, chest x-ray, and unremarkable labs. The patient was ultimately admitted due to atrial fibrillation with RVR requiring a diltiazem drip. The patient reports that he is not taking his home metoprolol for several. He states that he frequently forgets to take it. He continues to drink alcohol heavily. He states he generally has 3-4 beers and 3-4 shots of scotch a day. He has never been placed on anticoagulation in the past due to his alcoholism and high risk of falls. This morning, the pt reports that he continues to feel the lower restrosternal chest pain, and continues to feel that his heart is beating rapidly. 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 Family Hx: Mom of lung cancer Sister with complication of rheumatoid arthritis Two brothers who are healthy Three other sisters are healthy Patient History Medical History (Updated 08/01/20 @ 00:42 by Laureen Cárdenas RN) Alcohol abuse Atrial fibrillation Gout HTN (hypertension) Family & Social History Social History: household members spouse Prior Living Arrangements House Safety & Behavioral: Feels Safe in Current Yes Environment Been Physically Hurt or No Threatened By a Person Suicidal Ideation Description None Suicide Plan Description No Plan Tobacco & Substance use: Tobacco type cigarettes Smoking Status Former smoker alcohol intake current alcohol intake frequency 3 or more drinks per day Substance Use Type does not use Meds Home Medications and Allergies Home Medications Medication Instructions Recorded Confirmed Type metoprolol tartrate 50 mg PO BID #60 tab 01/21/20 08/01/20 Rx Allergies Allergy/AdvReac Type Severity Reaction Status Date / Time amoxicillin [AMOXICILLIN] Allergy Severe SWOLLEN JAW Verified 06/19/20 14:28 clindamycin [CLINDAMYCIN] AdvReac Severe C-DIFF Verified 06/19/20 14:28 Review of Systems Constitutional Constitutional: Denies fever(s), Reports frequent falls and Denies poor appetite Cardiovascular Cardiovascular: Reports chest pain, Denies pedal edema, Denies lightheadedness, Denies radiating jaw, neck or arm pain, Reports palpitations, Denies dyspnea and Denies dyspnea on exertion Respiratory Respiratory: Denies cough, Denies dyspnea and Denies dyspnea on exertion Gastrointestinal Gastrointestinal: Denies abdominal pain, Denies melena, Denies change in stool character and Denies constipation Genitourinary Genitourinary: Denies dysuria Neurologic Neurologic: Reports frequent falls Endocrine Endocrine: Reports palpitations Exam Vital Signs (past 8 hours): - 08/01/20 01:00 08/01/20 01:30 08/01/20 01:31 Temperature 98.5 F Pulse Rate 80 70 80 Respiratory Rate 32 H 24 21 Blood Pressure 139/93 H 135/80 Pulse Oximetry 95 98 97 08/01/20 02:00 08/01/20 02:30 08/01/20 02:31 Temperature Pulse Rate 74 88 80 Respiratory Rate 20 14 19 Blood Pressure 140/71 132/58 L Pulse Oximetry 94 08/01/20 03:00 08/01/20 03:30 08/01/20 04:06 Temperature 98.1 F Pulse Rate 74 84 73 Respiratory Rate 20 25 H 20 Blood Pressure 124/68 122/77 132/82 Pulse Oximetry 97 08/01/20 08:00 Temperature 97.4 F L Pulse Rate 62 Respiratory Rate 18 Blood Pressure 136/88 Pulse Oximetry 98 Oxygen Delivery Method Room Air Oxygen Flow Rate 0 Narrative Exam Narrative: GEN - alert, cooperative and no distress HEENT - normocephalic and atraumatic, sclera white, moist mucus membranes NECK - FROM, no adenopathy, no JVD HEART - RRR, S1, S2 normal, no S3 or S4, no murmurs LUNGS - symmetric chest rise, no accessory muscles, clear to auscultation bilaterally CHEST - palpation over the lower sternum with significant tenderness, no visible bruising ABD - flat, nondistended, normal bowel sounds, soft, mild epigastric tenderness EXT - no cyanosis, clubbing or edema SKIN - no rashes or suspicious lesions NEURO - no gross deficits, no asterixis Objective Labs Result Diagrams: 07/31/20 22:45 07/31/20 22:45 Labs: Laboratory Results - last 24 hr 07/31/20 07/31/20 07/31/20 22:45 22:45 23:29 WBC 8.4 RBC 3.92 L Hgb 13.0 L Hct 39.6 L MCV 100.9 H MCH 33.3 MCHC 33.0 RDW 13.9 Plt Count 186 Neut % (Auto) 76.1 H Lymph % (Auto) 15.8 L [place] % (Auto) 6.1 Eos % (Auto) 1.0 L Baso % (Auto) 1.0 Neut # (Auto) 6400 Lymph # (Auto) 1300 [place] # (Auto) 500 Eos # (Auto) 100 Baso # (Auto) 100 Sodium 142 Potassium 4.7 Chloride 107 Carbon Dioxide 24 BUN 14 Creatinine 1.06 Estimated GFR > 60.0 BUN/Creatinine Ratio 13.2 Glucose 118 H Calcium 9.2 Total Bilirubin 0.4 AST 37 ALT 17 Alkaline Phosphatase 65 Total Creatine Kinase 119 CK-MB (CK-2) 1.91 CK-MB (CK-2) Rel Index 1.6 Troponin I < 0.012 NT-Pro-B Natriuret Pep 776 H Total Protein 7.1 Albumin 4.2 Globulin 2.9 Albumin/Globulin Ratio 1.4 Nasal Screen MRSA (PCR) SARS-CoV-2 (PCR) Negative 08/01/20 01:44 WBC RBC Hgb Hct MCV MCH MCHC RDW Plt Count Neut % (Auto) Lymph % (Auto) [place] % (Auto) Eos % (Auto) Baso % (Auto) Neut # (Auto) Lymph # (Auto) [place] # (Auto) Eos # (Auto) Baso # (Auto) Sodium Potassium Chloride Carbon Dioxide BUN Creatinine Estimated GFR BUN/Creatinine Ratio Glucose Calcium Total Bilirubin AST ALT Alkaline Phosphatase Total Creatine Kinase CK-MB (CK-2) CK-MB (CK-2) Rel Index Troponin I NT-Pro-B Natriuret Pep Total Protein Albumin Globulin Albumin/Globulin Ratio Nasal Screen MRSA (PCR) Negative for mrsa SARS-CoV-2 (PCR) Assessment & Plan Assessment & Plan narrative: Pt is a 75yo man with atrial fibrillation, systolic congestive heart failure, hypertension, and significant alcoholism who presented with chest pressure and palpitations. Patient found to be in atrial fibrillation with RVR. Ultimately controlled with diltiazem drip. 1) Atrial fibrillation with RVR: Rate now controlled in the 60-70s, off drip. Remains in atrial fibrillation. - Continue to monitor with telemetry - Pt remains poor candidate for anticoagulation due to high risk of falls and heavy alcoholism - Continue Metoprolol 50mg BID 2) Chest pain: Negative troponin x 2 (repeat this morning). EKGs negative. Less likely cardiac etiology as has persisted after HR control and negative cardiac work-up. - Some improvement after GI cocktail - Pain is somewhat reproducible on exam, possibly with bruising from fall, which pt does report happens frequently at home. - Possibly related to anxiety. PRN Lorazepam to be given now. 3) Alcoholism: Pt heavy abuser. Intubated in the past due to withdrawals. - [facility] protocol 4) Systolic CHF: EF 40-45% 12/2019 - BNP slightly elevated at admission, but no clinical evidence of exacerbation at this time FEN: Cardiac diet DVT ppx: SCDs Code: Full Dispo: Pt potentially able to d/c later today if HR remains in good range off Diltiazem. Pt would like to return home. Discussed in detail the importance of taking Metoprolol at home. Encouraged him to get a pill box and keep pills by the refrigerator or bathroom sink as a reminder.
[2020-08-01 11:07] LABS: Creatine Kinase 120 U/L (55-170)
[2020-08-01 11:20] LABS: Troponin I < 0.012 ng/mL (0.01-0.034)
[2020-08-01 11:23] LABS: CKMB % Relative Index 1.7 % (1.5-5.0); Creatine Kinase MB 2.05 ng/mL (<2.37)
[2020-08-01] MEDS: MAG HYDROX/ALUMINUM/SIMETH SUS 20 ML, LIDOCAINE VISCOUS 2% 15 ML PO (11:33)
--- NOTE | 2020-08-01 12:20 | PC.NURSE ---
Addendum entered by Tammy Rashid R.N. 08/01/20 15:22: GIVEN PO 50MG LOPRESSOR PRIOR TO LEAVING AND INSTRUCTIONS GIVEN TO FRIEND MAE R/T PO RX - PHONE CALL TO [facility] ( SPOUSE ) UPDATED ON PLAN OF CARE- DISCHARGED AT THIS TIME Original Note: PT WITH INCREASED ANXIETY - POTENTIAL WITHDRAWLS ALTHOUGH PT DENIES AND REFUSES PO LORAZEPAM, CIWA SCORE OF 1, PT ABLE OT AMBULATE WITH SBA ONLY AND USING BATHROOM FEEDING HIMSELF AND DENIES PAIN. UPON FURTHER ASSESSMENT PT DOES ENDORSE RACING HEART BUT HEART RATE ON BEDSIDE MONITOR INDICATES 68-80 BPM AND CONTINUED AFIB. LUNGS DIM BUT CLEAR- MEDICATED WITH GI COCKTAIL AND HAS NOT COMPLAINED OF CHEST DISCOMFORT SINCE- REMAINS SALINE LOCKED
[2020-08-01] MEDS: METOPROLOL IR 50 MG TABLET PO (14:10)
--- NOTE | 2020-08-01 15:27 | PM.DS.1 ---
History of Present Illness History of Present Illness Chief complaint: rapid heartrate Narrative: Pt is a 75yo man with atrial fibrillation, systolic congestive heart failure, hypertension, and significant alcoholism who presented with chest pressure and palpitations. The patient reports that yesterday evening he started to feel a lower retrosternal chest pressure. He felt that his heart was racing at that time. He denies any radiation of the pain. He denies any associated nausea, diaphoresis, SOB. He denies any recent LE edema. He was sitting reading when the pain first started. He states that he last had a similar sensation around 6 months ago and only lasted around 10 minutes. This episode persisted and so he came to the emergency room for evaluation. In the ER, he was found to be in atrial fibrillation with RVR. He received p.o. metoprolol and then p.o. diltiazem and was ultimately started on a diltiazem drip to control his heart rate. His initial cardiac workup was otherwise negative with negative troponins, chest x-ray, and unremarkable labs. The patient was ultimately admitted due to atrial fibrillation with RVR requiring a diltiazem drip. The patient reports that he is not taking his home metoprolol for several. He states that he frequently forgets to take it. He continues to drink alcohol heavily. He states he generally has 3-4 beers and 3-4 shots of scotch a day. He has never been placed on anticoagulation in the past due to his alcoholism and high risk of falls. This morning, the pt reports that he continues to feel the lower restrosternal chest pain, and continues to feel that his heart is beating rapidly. 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 He received PO Metoprolol and Diltiazem in the ED, followed by an IV Diltiazem drip. This ultimately controlled his HR. He was weaned from the drip overnight, and his HR remained consistently < 90. The pts chest pain resolved after GI cocktail. It was also somewhat reproducible on exam. He had negative troponins and EKGs x 2. The chest pain was determined to be unlikely cardiac in origin. The pt had no withdrawal symptoms during the admission. He was ultimately discharged home with instructions to continue his home Metoprolol. Discussed ways to help him remember his medication. He was also encouraged to work on alcohol cessation. Status at Discharge Cognitive/behavioral status at discharge: oriented Functional status at discharge: independent ambulation Overall status at discharge: patient is back to baseline Exam Vital Signs (past 8 hours): - 08/01/20 08:00 08/01/20 10:34 08/01/20 12:18 Temperature 97.4 F L 97.5 F L Pulse Rate 62 77 Respiratory Rate 18 18 17 Blood Pressure 136/88 133/76 Pulse Oximetry 98 97 Oxygen Delivery Method Room Air Oxygen Flow Rate 0 Narrative Exam Narrative: See H&P from same day Objective Labs Result Diagrams: 07/31/20 22:45 07/31/20 22:45 Labs: Laboratory Results - last 24 hr 07/31/20 07/31/20 07/31/20 22:45 22:45 23:29 WBC 8.4 RBC 3.92 L Hgb 13.0 L Hct 39.6 L MCV 100.9 H MCH 33.3 MCHC 33.0 RDW 13.9 Plt Count 186 Neut % (Auto) 76.1 H Lymph % (Auto) 15.8 L [place] % (Auto) 6.1 Eos % (Auto) 1.0 L Baso % (Auto) 1.0 Neut # (Auto) 6400 Lymph # (Auto) 1300 [place] # (Auto) 500 Eos # (Auto) 100 Baso # (Auto) 100 Sodium 142 Potassium 4.7 Chloride 107 Carbon Dioxide 24 BUN 14 Creatinine 1.06 Estimated GFR > 60.0 BUN/Creatinine Ratio 13.2 Glucose 118 H Calcium 9.2 Total Bilirubin 0.4 AST 37 ALT 17 Alkaline Phosphatase 65 Total Creatine Kinase 119 CK-MB (CK-2) 1.91 CK-MB (CK-2) Rel Index 1.6 Troponin I < 0.012 NT-Pro-B Natriuret Pep 776 H Total Protein 7.1 Albumin 4.2 Globulin 2.9 Albumin/Globulin Ratio 1.4 Nasal Screen MRSA (PCR) SARS-CoV-2 (PCR) Negative 08/01/20 08/01/20 01:44 10:51 WBC RBC Hgb Hct MCV MCH MCHC RDW Plt Count Neut % (Auto) Lymph % (Auto) [place] % (Auto) Eos % (Auto) Baso % (Auto) Neut # (Auto) Lymph # (Auto) [place] # (Auto) Eos # (Auto) Baso # (Auto) Sodium Potassium Chloride Carbon Dioxide BUN Creatinine Estimated GFR BUN/Creatinine Ratio Glucose Calcium Total Bilirubin AST ALT Alkaline Phosphatase Total Creatine Kinase 120 CK-MB (CK-2) 2.05 CK-MB (CK-2) Rel Index 1.7 Troponin I < 0.012 NT-Pro-B Natriuret Pep Total Protein Albumin Globulin Albumin/Globulin Ratio Nasal Screen MRSA (PCR) Negative for mrsa SARS-CoV-2 (PCR) [facility] Medical History (Updated 08/01/20 @ 00:42 by Laureen Cárdenas, HUAN) Alcohol abuse Atrial fibrillation Gout HTN (hypertension) Social History marital status: household members: spouse occupational status: previously employed Smoking Status: Former smoker alcohol intake: current substance use type: does not use Discharge Plan Discharge Plan Patient Disposition: Home Discharge orders & Medications Prescriptions: Continued metoprolol tartrate 50 mg tablet 50 mg PO BID Qty: 60 RF: 0 Follow up/Referrals: Cris Reyna MD [Primary Care Provider] - 1 Week Diet/Activity/Treatments Diet: Regular Visit Report/Discharge Packet Instructions: DI for Atrial Fibrillation Visit Report Forms: Patient Portal/API, Stroke Signs & Symptoms Discharge Data Primary Care Provider: Cris Reyna Discharges patient from system. Discharge Date/Time: 08/01/20 14:50
== END 2020-08-01 14:50 | disposition home or self-care (01) ==
LOC: ED 22:48 → ICU 08-01 01:38 → AC 08-03 15:29
PROVIDERS: Nurse Practitioner Family; Admitting Provider Family Medicine; Emergency Provider Emergency Medicine; PCP Student in an Organized Health Care Education/Training Program; Referring Provider Emergency Medicine; Visit Provider Family Medicine
DX: I48.91 Unspecified atrial fibrillation (principal); R00.2 Palpitations; F10.10 Alcohol abuse, uncomplicated; I50.20 Unspecified systolic (congestive) heart failure; R07.89 Other chest pain; Z20.822 Contact with and (suspected) exposure to COVID-19
CPT/HCPCS: 36415; 71045; 80053; 82550; 82553; 83880; 84484; 85025; 87635; 87797; 93005; 93010; 96365; 96366; 96375; 99235; 99284; C9803; G0378

== ENCOUNTER 2020-09-04 14:53 | Inpatient (IN) | payer MEDICARE, OTHER, SELFPAY ==
[2019-07-03 21:02] VITALS: PULSE 98; RESP 16; O2SAT 98
[2020-08-01 01:22] VITALS: BMI 24.7
[2020-09-04] VITALS (18 sets, daily range): BP systolic 129–164; BP diastolic 76–110; PULSE 85–135; RESP 15–32; TEMP 35.8–37; O2SAT 88–97; BMI 24.3; BMI 23.5
--- NOTE | 2020-09-04 | DI.ECHO.S_ITS ---
[place] [facility] +---------+ : : [address] : : : : [id number] : : : : Phone: [phone] Echocardiogram Report + + :Name: YVETTE MASTERS Study Date: 09/05/2020 Height: 69 in : :[facility] ReadingLocation: Weight: 159 lb : : Gender: Male BSA: 1.9 m2 : :: 1945 Age: 75 yrs BP: 104/56 mmHg: :Reason For Study: Atrial fibrillation : :Ordering Physician: MARK, : :ANGIE Performed By: Gee Fregoso : :Referring: ANGIE FLORES : + + Interpretation Summary The left ventricle is normal in size and wall thickness. The ejection fraction is estimated to be 50-55%. Compared to the prior exam, the left ventricular function is improved. The right ventricle is normal in size and function. No significant valvular pathology seen. There is aortic root sclerosis/calcification. The IVC is of normal diameter and collapses greater than 50% with a sniff. This suggests a low right atrial pressure of 3 mm Hg. Procedure: A two-dimensional transthoracic echocardiogram with color flow and Doppler was performed. The study quality was technically adequate. Comparison is made with the echocardiogram of 12/29/2019. The patient was in atrial fibrillation with heart rates between 68-94 bpm during the exam. Left Ventricle: The left ventricle is normal in size and wall thickness. There is no thrombus. The ejection fraction is estimated to be 50-55%. Compared to the prior exam, the left ventricular function is improved. There are no focal wall motion abnormalities. Diastolic function could not be accurately assessed due to atrial fibrillation. Right Ventricle: The right ventricle is normal in size and function. Atria: The left atrium is severely dilated. The left atrium has remained unchanged in size since the prior echo exam. The right atrium is moderately dilated. There is no Doppler evidence for an interatrial shunt. Mitral Valve: There is mild mitral annular calcification. There is mild mitral regurgitation. Aortic Valve: There is mild aortic valve sclerosis. The aortic valve is trileaflet. There is no aortic valve stenosis. No aortic regurgitation is present. Tricuspid Valve: The tricuspid valve is normal. The right ventricular systolic pressure is estimated to be at least 32 mmHg based on an estimated right atrial pressure of 3 mm Hg. There is mild tricuspid regurgitation. Pulmonic Valve: The pulmonic valve is normal in structure and function. There is trace pulmonic regurgitation. Great Vessels: The aortic root is normal size. There is aortic root sclerosis/calcification. The dimensions of the ascending aorta are normal. The IVC is of normal diameter and collapses greater than 50% with a sniff. This suggests a low right atrial pressure of 3 mm Hg. Pericardium/ Pleura There is no pericardial effusion. There is an anterior echo-free space consistent with a fat pad. There is no pleural effusion. MMode/2D Measurements & Calculations LVIDd: 4.7 cm LVOT diam: 2.1 cm LVIDs: 3.5 cm Ao root diam: 3.2 cm FS: 26.3 % asc Aorta Diam: 3.2 cm IVSd: 0.83 cm LVPWd: 0.68 cm LV haas. diameter/BSA (cm/m^2): 2.5 LV sys. diameter/BSA (cm/m^2): 1.9 LA A2 area: 30.1 cm2 RA long axis: 7.0 cm LA A4 area: 29.8 cm2 RA area: 21.2 cm2 LA length (vol): 6.7 cm RA vol: 54.6 ml LA vol: 114.2 ml RA : 29.1 ml/m2 LA vol index: 60.9 ml/m2 IVC diam: 2.1 cm TAPSE: 2.2 cm Doppler Measurements & Calculations Ao V2 max: 152.2 cm/sec LVOT Max Sharath: 97.7 cm/sec Ao V2 mean: 108.7 cm/sec LV V1 max P.8 mmHg Ao max P.3 mmHg LV V1 VTI: 18.1 cm Ao mean P.1 mmHg MATIAS(I,D): 2.4 cm2 Ao V2 VTI: 25.6 cm MATIAS(V,D): 2.2 cm2 sev ratio: 0.71 MATIAS indexed to BSA (cm^2/m^2): 1.3 TR max sharath: 269.6 cm/sec SV(LVOT): 62.2 ml TR max P.1 mmHg PA pr(Accel): 50.7 mmHg Reading Physician:02:19 PM
--- NOTE | 2020-09-04 15:07 | DI.RAD.S_ITS ---
PROCEDURE: XR CHEST 1V INDICATIONS: chest pain TECHNIQUE: One view of the chest was acquired. COMPARISON: [facility], CT, CT CHEST ABD PEL W CON, 06/19/2020, 14:56. [facility], CR, XR CHEST 1V, 07/31/2020, 23:00. [facility], CR, XR CHEST 1V, 05/26/2020, 21:04. FINDINGS: Surgical changes and devices: None. Lungs and pleura: Left lower lobe airspace opacity appears similar to the CT from 06/19/2020. Mild hazy opacity in the right lower lobe, also similar. No pleural effusions or pneumothorax. Mediastinum: Mediastinal contours appear normal. Heart size is normal. Bones and chest wall: No suspicious bony lesions. Overlying soft tissues appear unremarkable. IMPRESSION: Left lower lobe airspace opacity appears similar to CT from June 2020. Mild hazy opacity in the right lower lobe is also similar. Recommend follow-up to resolution. Dictated by: Nito Lynn M.D. on 09/04/2020 at 15:45 Approved by: Nito Lynn M.D. on 09/04/2020 at 15:49
[2020-09-04 15:30] LABS: Add Manual Diff / Slide Review NO; Basophils Absolute Auto 0 /uL (0-100); Basophils Percent Auto 1.2 % (0-2); Eosinophils Absolute Auto 0 /uL (0-450); Hemoglobin 11.5 g/dL (13.5-17.5); Lymphocytes Absolute Auto 700 /uL (1100-4500); Lymphocytes Percent Auto 20.3 % (25-40); Mean Corpuscular HGB Conc 33.8 % (30-36); Mean Corpuscular Hemoglobin 34.3 PG (26-34); Mean Corpuscular Volume 101.2 fL (80-100); Monocytes Absolute Auto 400 /uL (0-900); Monocytes Percent Auto 11.3 % (3-14); Neutrophils Absolute Auto 2400 /uL (1500-7000); Neutrophils Percent Auto 66.2 % (50-75); Platelet Count 157 X10^3/uL (150-400); Red Blood Cell Count 3.36 X10^6/uL (4.5-5.9); Red Cell Distribution Width 17.4 % (11.6-14.8); White Blood Cell Count 3.7 X10^3/uL (4.5-11.0)
[2020-09-04 15:41] LABS: Alanine Aminotransferase 34 IU/L (<50); Albumin 4.1 g/dL (3.5-5.0); Albumin Globulin Ratio 1.6 (1.0-2.8); Alkaline Phosphatase 61 U/L (38-126); Aspartate Aminotransferase 56 IU/L (17-59); BUN Creatinine Ratio 17.1 (6-22); Blood Urea Nitrogen 14 mg/dL (9-20); Calcium 8.9 mg/dL (8.4-10.2); Carbon Dioxide 24 mmol/L (22-32); Chloride 107 mmol/L (98-107); Creatine Kinase 157 U/L (55-170); Estimated Glomerular Filt Rate > 60.0 mL/min (>60); Globulin 2.6 g/dL (1.7-4.1); Glucose 91 mg/dL (80-110); HEMOLYSIS < 15 (0-50); Lipase 106 U/L (23-300); Potassium 4.4 mmol/L (3.4-5.1); Sodium 138 mmol/L (137-145); Total Protein 6.7 g/dL (6.3-8.2)
[2020-09-04 15:51] LABS: Troponin I < 0.012 ng/mL (0.01-0.034)
[2020-09-04 15:56] LABS: CKMB % Relative Index 1.3 % (1.5-5.0); Creatine Kinase MB 2.01 ng/mL (<2.37)
--- NOTE | 2020-09-04 17:18 | ED.ARRPALP ---
HPI - Arrhythmia/Palpitations General Chief Complaint: Arrhythmia/Palpitations Stated Complaint: AFIB UNABLE TO STAND UP LOOSE BALANCE Time Seen by Provider: 09/04/20 16:50 Source: patient Mode of arrival: Wheelchair Limitations: no limitations History of Present Illness HPI narrative: Patient is a 75-year-old male with history of dementia alcohol abuse and atrial fibrillation presenting today with balance issues in atrial fibrillation. He apparently was supposed to meet his friend for lunch, he called his friend who is at the restaurant stating that he could not move or get up. His friend fortunately found him sitting on a bench which point he came to the emergency department. Does not appear that he has fallen but he is really unable to give me much history. He says he is pretty sure something happened today at noon. He is noted to be in atrial fibrillation he has a history of it. He is not taking any of his medication. He is not on any anti-platelet or anticoagulation medication. He was admitted in July for AFib with RVR. Patient is overall an extremely poor historian most history is from the friend Related Data Home Medications Medication Instructions Recorded Confirmed diltiazem HCl 120 mg capsule,24 120 mg PO DAILY 09/04/20 09/04/20 hr,extended release Previous Rx's Medication Instructions Recorded metoprolol tartrate 50 mg tablet 50 mg PO BID #60 tab 01/21/20 Allergies Allergy/AdvReac Type Severity Reaction Status Date / Time amoxicillin [AMOXICILLIN] Allergy Severe SWOLLEN JAW Verified 09/04/20 14:57 clindamycin [CLINDAMYCIN] AdvReac Severe C-DIFF Verified 09/04/20 14:57 Review of Systems Constitutional Constitutional: Reports frequent falls ENT Ears, Nose, Mouth, and Throat: Denies vertigo Cardiovascular Cardiovascular: Reports irregular heart rhythm and Reports dyspnea on exertion Respiratory Respiratory: Reports dyspnea on exertion Gastrointestinal Gastrointestinal: Denies abdominal pain, Denies nausea and Denies vomiting Integumentary/Breasts Skin/Breast: Reports rash Neurologic Neurologic: Reports confusion, Denies vertigo, Reports frequent falls and Reports memory loss Psychiatric Psychiatric: Reports confusion and Reports memory loss Patient History Medical History (Updated 09/04/20 @ 19:47 by Dawn Paez DO) Alcohol abuse Atrial fibrillation Gout HTN (hypertension) Social History marital status: household members: spouse occupational status: previously employed Smoking Status: Former smoker alcohol intake: current substance use type: does not use Smoking Status: Former smoker alcohol intake frequency: 3 or more drinks per day Alcohol type: hard liquor Substance Use Type: does not use Exam Initial Vital Signs Initial Vital Signs: Vital Signs Temperature 98.6 F 09/04/20 14:58 Pulse Rate 127 H 09/04/20 14:58 Respiratory Rate 18 09/04/20 14:58 Blood Pressure 144/97 H 09/04/20 14:58 Pulse Oximetry 96 09/04/20 14:58 GENERAL: Alert 75-year-old confused frail male HEENT: Head atraumatic,EOMI, pupils reactive, face symmetric, moist mucous membranes CARDIOVASCULAR: Irregularly irregular tachycardic RESPIRATORY: Breath sounds equal bilaterally, no wheezes rales or rhonchi. ABDOMEN: Soft, nontender. Normoactive bowel sounds all 4 quadrants. No guarding or rebound. EXTREMITIES: Normal range of motion, no clubbing or edema. Neurovascularly intact NEUROLOGICAL: Alert and oriented x2.Normal gait and speech. Lock Up Worker strength equal bilaterally SKIN: Warm, dry, no laceration, no petechiae, no rashes or lesions. Course Orders Ordered: Acetaminophen (Acetaminophen 325 Mg Tablet) 650 mg PO Q6HR PRN PRN Reason: Fever/Mild Pain (1-3) Al Hydrox/Mg Hydrox/Simethicone (Mag Hydrox/Alum/Simeth 30 Ml Udc) 30 ml PO Q6HR PRN PRN Reason: Dyspepsia Calcium Carbonate (Calcium Carbonate 500 Mg Tab) 1,000 mg PO Q4HR PRN PRN Reason: Dyspepsia Diltiazem HCl (Diltiazem Cd 120 Mg Cap) 120 mg PO DAILY MIKEL Folic Acid (Folic Acid 1 Mg Tablet) 1 mg PO DAILY MIKEL Haloperidol (Haloperidol 5 Mg/Ml Vial) 2 mg IV Q1HR PRN PRN Reason: Hallucinations Hydromorphone HCl (Hydromorphone 1 Mg Inj) 1 mg IV Q6H PRN PRN Reason: Pain, Severe (7-10) Ibuprofen (Ibuprofen 600 Mg Tablet) 600 mg PO Q6HR PRN PRN Reason: Fever/Mild Pain (1-3) Lorazepam (Lorazepam 2 Mg/Ml Inj) 0 mg IV CIWAPRN PRN; Protocol PRN Reason: Alcohol Withdrawal Last Admin: 09/05/20 06:14 Dose: 1 mg Documented by: Magnesium Hydroxide (Magnesium Hydroxide 30 Ml Udc) 30 ml PO DAILY PRN PRN Reason: Constipation Metoprolol Tartrate (Metoprolol Ir 50 Mg Tablet) 50 mg PO BID [facility] Multivitamins (Multivitamin 1 Tablet) 1 tab PO DAILY [facility] Naloxone HCl (Naloxone 0.4 Mg/Ml Vial) 0.2 mg IV Q2MIN PRN PRN Reason: Opiate Reversal Ondansetron HCl (Ondansetron 4 Mg/2 Ml Inj) 4 mg IV Q8HR PRN PRN Reason: Nausea And Vomiting Thiamine HCl (Thiamine 100 Mg Tablet) 100 mg PO DAILY MIKEL Stop: 09/07/20 09:01 Last Admin: 09/04/20 23:07 Dose: 100 mg Documented by: Discontinued Medications Diltiazem HCl (Diltiazem 5 Mg/Ml Sdv) 10 mg IV NOW ONE Stop: 09/04/20 17:20 Last Admin: 09/04/20 18:00 Dose: 10 mg Documented by: [email or web address] Diltiazem HCl (Diltiazem Cd 120 Mg Cap) 120 mg PO NOW ONE Stop: 09/04/20 18:18 Last Admin: 09/04/20 18:28 Dose: 120 mg Documented by: [email or web address] Furosemide (Furosemide 40 Mg/4 Ml Vial) 40 mg IV NOW ONE Stop: 09/04/20 18:17 Last Admin: 09/04/20 18:28 Dose: 40 mg Documented by: [email or web address] Metoprolol Succinate (Metoprolol Er 50 Mg Tablet) 50 mg PO NOW ONE Stop: 09/04/20 18:18 Last Admin: 09/04/20 18:28 Dose: 50 mg Documented by: [email or web address] Vital Signs Vital signs: Vital Signs - 8 hr 09/04/20 14:58 09/04/20 16:06 09/04/20 16:08 Temperature 98.6 F Pulse Rate 127 H 117 H 114 H Respiratory Rate 18 24 17 Blood Pressure 144/97 H 154/95 H Pulse Oximetry 96 97 97 09/04/20 16:30 09/04/20 17:00 09/04/20 17:13 Temperature Pulse Rate 105 H 119 H 135 H Respiratory Rate 15 28 H 27 H Blood Pressure 155/105 H 164/100 H 147/100 H Pulse Oximetry 95 91 96 09/04/20 17:30 09/04/20 18:00 09/04/20 18:30 Temperature Pulse Rate 110 H 108 H Respiratory Rate 27 H Blood Pressure Pulse Oximetry 88 L 96 96 09/04/20 18:31 09/04/20 19:00 Temperature Pulse Rate 104 H 98 H Respiratory Rate 26 H Blood Pressure 145/76 H 149/94 H Pulse Oximetry 95 95 MDM - Arrhythmia/Palpitations Lab Data Result diagrams: 09/05/20 06:25 09/05/20 06:25 Labs: Lab Results 09/04/20 09/04/20 09/04/20 Range/Units 00:35 15:18 15:18 WBC 3.7 L (4.5-11.0) X10^3/uL RBC 3.36 L (4.5-5.9) X10^6/uL Hgb 11.5 L (13.5-17.5) g/dL Hct 34.0 L (41-53) % MCV 101.2 H (80-100) fL MCH 34.3 H (26-34) PG MCHC 33.8 (30-36) % RDW 17.4 H (11.6-14.8) % Plt Count 157 (150-400) X10^3/uL Neut % (Auto) 66.2 (50-75) % Lymph % (Auto) 20.3 L (25-40) % Luce % (Auto) 11.3 (3-14) % Eos % (Auto) 1.0 L (2-4) % Baso % (Auto) 1.2 (0-2) % Neut # (Auto) 2400 (2304-3682) /uL Lymph # (Auto) 700 L (9148-0699) /uL Luce # (Auto) 400 (0-900) /uL Eos # (Auto) 0 (0-450) /uL Baso # (Auto) 0 (0-100) /uL Sodium 138 (137-145) mmol/L Potassium 4.4 (3.4-5.1) mmol/L Chloride 107 (98-107) mmol/L Carbon Dioxide 24 (22-32) mmol/L BUN 14 (9-20) mg/dL Creatinine 0.82 (0.66-1.25) mg/dL Estimated GFR > 60.0 (>60) mL/min BUN/Creatinine Ratio 17.1 (6-22) Glucose 91 (80-110) mg/dL Calcium 8.9 (8.4-10.2) mg/dL Total Bilirubin 1.0 (0.2-1.3) mg/dL AST 56 (17-59) IU/L ALT 34 (<50) IU/L Alkaline Phosphatase 61 (38-126) U/L Total Creatine Kinase 157 (55-170) U/L CK-MB (CK-2) 2.01 (<2.37) ng/mL CK-MB (CK-2) Rel Index 1.3 L (1.5-5.0) % Troponin I < 0.012 < 0.012 (0.01-0.034) ng/mL NT-Pro-B Natriuret Pep (<125) pg/mL Total Protein 6.7 (6.3-8.2) g/dL Albumin 4.1 (3.5-5.0) g/dL Globulin 2.6 (1.7-4.1) g/dL Albumin/Globulin Ratio 1.6 (1.0-2.8) Lipase 106 (23-300) U/L Ethyl Alcohol ( - 10) mg/dL SARS-CoV-2 (PCR) (Negative) 09/04/20 09/04/20 09/04/20 Range/Units 15:18 15:18 19:45 WBC (4.5-11.0) X10^3/uL RBC (4.5-5.9) X10^6/uL Hgb (13.5-17.5) g/dL Hct (41-53) % MCV (80-100) fL MCH (26-34) PG MCHC (30-36) % RDW (11.6-14.8) % Plt Count (150-400) X10^3/uL Neut % (Auto) (50-75) % Lymph % (Auto) (25-40) % Luce % (Auto) (3-14) % Eos % (Auto) (2-4) % Baso % (Auto) (0-2) % Neut # (Auto) (7065-1505) /uL Lymph # (Auto) (5723-1657) /uL Luce # (Auto) (0-900) /uL Eos # (Auto) (0-450) /uL Baso # (Auto) (0-100) /uL Sodium (137-145) mmol/L Potassium (3.4-5.1) mmol/L Chloride (98-107) mmol/L Carbon Dioxide (22-32) mmol/L BUN (9-20) mg/dL Creatinine (0.66-1.25) mg/dL Estimated GFR (>60) mL/min BUN/Creatinine Ratio (6-22) Glucose (80-110) mg/dL Calcium (8.4-10.2) mg/dL Total Bilirubin (0.2-1.3) mg/dL AST (17-59) IU/L ALT (<50) IU/L Alkaline Phosphatase (38-126) U/L Total Creatine Kinase (55-170) U/L CK-MB (CK-2) (<2.37) ng/mL CK-MB (CK-2) Rel Index (1.5-5.0) % Troponin I (0.01-0.034) ng/mL NT-Pro-B Natriuret Pep 1060 H (<125) pg/mL Total Protein (6.3-8.2) g/dL Albumin (3.5-5.0) g/dL Globulin (1.7-4.1) g/dL Albumin/Globulin Ratio (1.0-2.8) Lipase (23-300) U/L Ethyl Alcohol 111 H ( - 10) mg/dL SARS-CoV-2 (PCR) Negative (Negative) Urine Dip Bedside Urine Glucose Negative Bedside Urine Bilirubin - Negative Bedside Urine Ketone - Negative Urine Specific [place] 1.030 Bedside Urine Occult Blood - Negative Bedside Urine pH 6.0 Bedside Urine Protein +/- 15 Bedside Urine Urobilinogen - Negative Bedside Urine Nitrite - Negative Bedside Urine Leukocytes - Negative Esterase Imaging Data CT scan - head: Radiologist's Impresson: PROCEDURE: CT HEAD/BRAIN WO CON INDICATIONS: fall today ETOH doesn't remember TECHNIQUE: Noncontrast 4.5 mm thick angled axial sections acquired from the foramen magnum to the vertex, with coronal and sagittal reformats. For radiation dose reduction, the following was used: automated exposure control, adjustment of mA and/or kV according to patient size. COMPARISON: [facility], CT, CT HEAD/BRAIN WO CON, 12/28/2019, 14:54. [facility], CT, CT HEAD/BRAIN WO CON, 05/26/2020, 21:14. [facility], CT, CT HEAD/BRAIN WO CON, 06/19/2020, 14:56. FINDINGS: Image quality: Excellent. CSF spaces: Basal cisterns are patent. No extra-axial fluid collections. The ventricles are symmetric in size and shape. Brain: No intracranial bleeds or masses. There is cerebral volume loss for age, with resultant ventricular and sulcal prominence. There are periventricular and deep white matter chronic small vessel ischemic changes. There is intracranial internal carotid artery atherosclerosis. Skull and face: Right forehead scalp soft tissue swelling is seen. No underlying calvarial fracture is seen. Calvarium and visualized facial bones appear intact, without suspicious lesions. Sinuses: Visualized sinuses and mastoids are clear. IMPRESSION: No acute intracranial hemorrhage is seen. No acute intracranial process is seen. Right forehead scalp soft tissue swelling seen, without an underlying fracture. Dictated by: Bonilla Moore M.D. on 09/04/2020 at 16:58 Approved by: Bonilla Moore M.D. on 09/04/2020 at 17:00 Chest x-ray: Radiologist's Impresson: PROCEDURE: XR CHEST 1V INDICATIONS: chest pain TECHNIQUE: One view of the chest was acquired. COMPARISON: [facility], CT, CT CHEST ABD PEL W CON, 06/19/2020, 14:56. [facility], CR, XR CHEST 1V, 07/31/2020, 23:00. [facility], CR, XR CHEST 1V, 05/26/2020, 21:04. FINDINGS: Surgical changes and devices: None. Lungs and pleura: Left lower lobe airspace opacity appears similar to the CT from 06/19/2020. Mild hazy opacity in the right lower lobe, also similar. No pleural effusions or pneumothorax. Mediastinum: Mediastinal contours appear normal. Heart size is normal. Bones and chest wall: No suspicious bony lesions. Overlying soft tissues appear unremarkable. IMPRESSION: Left lower lobe airspace opacity appears similar to CT from June 2020. Mild hazy opacity in the right lower lobe is also similar. Recommend follow-up to resolution. Dictated by: Nito Lynn M.D. on 09/04/2020 at 15:45 CT scan - chest: Radiologist's Impresson: PROCEDURE: CT ANGIO CHEST PE PROTOCOL INDICATIONS: short of breath TECHNIQUE: After the administration of intravenous contrast, 2 mm thick sections acquired from the pulmonary apices to the posterior costophrenic angles. 3-dimensional maximum intensity projection (MIP) coronal and sagittal reformats were then acquired through the thorax. For radiation dose reduction, the following was used: automated exposure control, adjustment of mA and/or kV according to patient size. COMPARISON: None. FINDINGS: Image quality: Excellent. Pulmonary arteries: Pulmonary arteries are normal in size, and demonstrate no intraluminal filling defects to suggest central pulmonary embolism. Lungs and pleura: Lungs are abnormal, with bilateral basilar pneumonia, density consolidated above the diaphragm on the left and more diffuse in its distribution, mild in overall severity on the right.. No pleural effusions or pneumothorax. Central and peripheral airways are patent. Mediastinum: Heart size is normal, without pericardial effusion. No mediastinal or hilar adenopathy. Thoracic aorta is normal in caliber and enhancement. Esophagus is normal in caliber, without hiatal hernia. Bones and chest wall: No suspicious bony lesions. Ribs and thoracic spine appear intact throughout. Thyroid gland appears normal where well seen.. No axillary or supraclavicular adenopathy. Abdomen: Visualized upper abdominal solid organs appear normal in the early arterial phase of enhancement. IMPRESSION: Bilateral basilar pneumonia, more densely consolidated on the left than the right. No pulmonary embolus found. Dictated by: Clarence Marcelino M.D. on 09/04/2020 at 18:44 ECG Data Attestation: I personally reviewed and interpreted this ECG as follows: Interpretation: Atrial fibrillation rate [address] changes similar to previous EKG MDM Narrative Medical decision making narrative: I am unclear of the events that led to an emergency department visit today. Does not appear that patient fell he is unable to get me history he has no complaints. Information mostly from friend. It is noticed that when patient moves to the commode heart rate increases into the 140s he becomes extremely hypoxic 89-90% with obvious dyspnea. BNP is found to be elevated over 1000. Previous admission does not look like they did an echocardiogram. He has no peripheral edema. CT angio is also done which does not show any pulmonary embolism but to suggest pneumonia. I do not believe patient has pneumonia at this time. He has no leukocytosis is afebrile and is not complaining of a cough. Patient is given 1 dose of Lasix for congestive heart failure. Heart rate is controlled with 10 mg of diltiazem and his oral medication. Patient is certainly not a candidate for anticoagulation due to noncompliance and frequent falls. Dr. Reyna has been obtained patient's symptoms test results and happily accepts patient. Discharge Plan Departure Patient Disposition: Admitted As Inpatient Clinical Impression: Atrial fibrillation CHF (congestive heart failure) Qualifiers: Heart failure type: other Qualified Code(s): I50.9 - Heart failure, unspecified Admit Date/Time: 09/04/20 19:47 Admit Provider: Cris Reyna
--- NOTE | 2020-09-04 17:21 | DI.CT.S_ITS ---
PROCEDURE: CT HEAD/BRAIN WO CON INDICATIONS: fall today ETOH doesn't remember TECHNIQUE: Noncontrast 4.5 mm thick angled axial sections acquired from the foramen magnum to the vertex, with coronal and sagittal reformats. For radiation dose reduction, the following was used: automated exposure control, adjustment of mA and/or kV according to patient size. COMPARISON: [facility], CT, CT HEAD/BRAIN WO CON, 12/28/2019, 14:54. [facility], CT, CT HEAD/BRAIN WO CON, 05/26/2020, 21:14. [facility], CT, CT HEAD/BRAIN WO CON, 06/19/2020, 14:56. FINDINGS: Image quality: Excellent. CSF spaces: Basal cisterns are patent. No extra-axial fluid collections. The ventricles are symmetric in size and shape. Brain: No intracranial bleeds or masses. There is cerebral volume loss for age, with resultant ventricular and sulcal prominence. There are periventricular and deep white matter chronic small vessel ischemic changes. There is intracranial internal carotid artery atherosclerosis. Skull and face: Right forehead scalp soft tissue swelling is seen. No underlying calvarial fracture is seen. Calvarium and visualized facial bones appear intact, without suspicious lesions. Sinuses: Visualized sinuses and mastoids are clear. IMPRESSION: No acute intracranial hemorrhage is seen. No acute intracranial process is seen. Right forehead scalp soft tissue swelling seen, without an underlying fracture. Dictated by: Bonilla Moore M.D. on 09/04/2020 at 16:58 Approved by: Bonilla Moore M.D. on 09/04/2020 at 17:00
[2020-09-04 17:57] LABS: NT-proBNP (BNP-Adult 18+) 1060 pg/mL (<125)
[2020-09-04] MEDS: dilTIAZem 5 MG/ML SDV 10 MG IV (18:00)
[2020-09-04] MEDS: FUROSEMIDE 40 MG/4 ML VIAL IV (18:28)
[2020-09-04] MEDS: METOPROLOL ER 50 MG TABLET PO (18:28)
[2020-09-04] MEDS: dilTIAZem CD 120 MG CAP PO (18:28)
[2020-09-04 19:59] LABS: Ethanol (ETOH) 111 mg/dL
[2020-09-04 20:56] LABS: COVID19 - ADMIT (NP swab/PCR) Negative (Negative)
[2020-09-04] MEDS: LORazepam 2 MG/ML INJ IV (23:05)
[2020-09-04] MEDS: THIAMINE 100 MG TABLET PO (23:07)
[2020-09-05] VITALS (16 sets, daily range): BP systolic 93–129; BP diastolic 56–86; PULSE 69–86; RESP 13–18; TEMP 36–36.9; O2SAT 94–99
--- NOTE | 2020-09-05 00:37 | PC.NURSE ---
Admit/Evening Shift Note- Patient arrived to room via stretcher from at at 2125. Unsteady/shakey gait noted when transfering to bed. Patient alert and oriented x2. Reviewed patient last admit assessment to finish current admit due to patient being poor historian. Siezure pads placed on bed. bed alarm activated. CIWA initiated. Ativan 1mg IV given for CIWA score of 9. Oriented patient to bed controls and call tolentino/tv remote. WIll need reorienting as needed. Safety measures in place. Call tolentino and phone withinreach. will continue to monitor.
[2020-09-05 01:07] LABS: Troponin I < 0.012 ng/mL (0.01-0.034)
--- NOTE | 2020-09-05 02:33 | PC.NURSE ---
At shift change pt given ativan for CIWA score of 9. Upon assessment at 2330 pt was calm in appearance and denied CP, dizziness, nausea, light sensitivity and auditory sensitivity. Pt does report feeling SOB with exertion and has diminished R lung sounds. Pt sleeps for most of the shift. 0200 Pt walks to bathroom with standby assist and a walker. No tremors noted unless feeling pt's finger tips. Pt continues to deny CP, dizziness, nausea, light sensitivity and auditory sensitivity. After returning to bed pt reports SOB and palpitations. Pt's SpO2 remained above 94% and HR was 75-81. Pt given education on his medical conditions and the medications that have been given to him to combat them. Pt is oriented to self, situation, day of the week and place. Pt quickly falls asleep after questions have been answered. Due to pt's mild forgetfulness, he will need reinforcement of the information.
--- NOTE | 2020-09-05 05:16 | PM.HP.1 ---
History of Present Illness History of Present Illness Date Patient Seen: 09/05/20 Time Patient Seen: 05:16 Chief complaint: AFIB UNABLE TO STAND UP LOOSE BALANCE Narrative: 75-year-old alcoholic male presents from the ER with CHF and atrial fibrillation. Prior to admission, he was supposed to be meeting his friend for lunch but called him and told him that he could not move or get up. His friend went to his home and found him sitting on a bench, unable to move, and called 911. In the emergency department, vital signs included a temperature of 98.6?, pulse 127, respiratory rate 18, blood pressure 144/97, and O2 saturation 96% on room air. With any movement, he desaturated into the 80s. CT angiogram ruled out PE but did show that patient had a bilateral pneumonia, left greater than right. However, chest x-ray showed the LLL opacity was similar to the 07/03 CT scan and patient had no evidence of a white count, fever, or cough. ED physician thought pneumonia clinically unlikely and he was not started on antibiotics. BNP was 1060 and he was found to be in atrial fibrillation with a rapid ventricular rate. He has been off of his home medications. His helps manage his medications but she is gone for the next 2 months awaiting the of a grandchild in October. Was given diltiazem 10 mg IV x 1, Lasix 40 mg IV x1, and restarted on his home medications of metoprolol and diltiazem prior to being transferred to the floor. Blood alcohol content was 111 and he was placed on CIWA protocol, uneventful night. Did receive Ativan last night for tremors, nothing since. Reports that his last drink was a couple of bourbons 2 days ago. CIWA t his morning was zeor. Generally has 3-4 beers and 3-4 shots of scotch/bourbon a day. He has never been placed on anticoagulation due to his alcoholism and high risk of falls. Patient History Medical History (Updated 09/04/20 @ 19:47 by Dawn Paez DO) Alcohol abuse Atrial fibrillation Gout HTN (hypertension) Family & Social History Social History: household members spouse Prior Living Arrangements House Safety & Behavioral: Feels Safe in Current Yes Environment Been Physically Hurt or No Threatened By a Person Suicidal Ideation Description None Suicide Plan Description No Plan Tobacco & Substance use: Tobacco type cigarettes Smoking Status Former smoker alcohol intake current alcohol intake frequency 3 or more drinks per day Substance Use Type does not use Meds Home Medications and Allergies Home Medications Medication Instructions Recorded Confirmed Type metoprolol tartrate 50 mg tablet 50 mg PO BID #60 tab 01/21/20 09/04/20 Rx diltiazem HCl 120 mg capsule,24 120 mg PO DAILY 09/04/20 09/04/20 History hr,extended release Allergies Allergy/AdvReac Type Severity Reaction Status Date / Time amoxicillin [AMOXICILLIN] Allergy Severe SWOLLEN JAW Verified 09/04/20 14:57 clindamycin [CLINDAMYCIN] AdvReac Severe C-DIFF Verified 09/04/20 14:57 Review of Systems Review of Systems Narrative: See HPI. Exam Vital Signs (past 8 hours): - 09/04/20 21:25 09/04/20 23:35 09/05/20 00:15 Temperature 96.5 F L 97.8 F Pulse Rate 94 H 85 85 Respiratory Rate 20 20 18 Blood Pressure 145/77 H 129/86 129/86 Pulse Oximetry 94 95 09/05/20 00:33 Temperature Pulse Rate Respiratory Rate Blood Pressure Pulse Oximetry 96 Oxygen Delivery Method Room Air Oxygen Flow Rate 0 Narrative Exam Narrative: GENERAL: Alert and oriented, appearing stated age and in no acute distress. HEENT: Head normocephalic/atraumatic. LUNGS: Clear to ausculation bilaterally, no wheezes, rhonchi or rales. CV: Irregularly irregular, no audible murmurs, rubs or gallops. ABDOMEN: Soft, non-tender, non-distended, no organomegaly. Positive bowel sounds. EXTREMITIES: No clubbing, cyanosis, or edema. NEURO: Cranial nerves II through XII grossly intact, no focal deficits. PSYCH: Alert and oriented x 3. SKIN: No concerning lesions. Objective Labs Result Diagrams: 09/05/20 06:25 09/05/20 06:25 Labs: Laboratory Results - last 24 hr 09/04/20 09/04/20 09/04/20 00:35 15:18 15:18 WBC 3.7 L RBC 3.36 L Hgb 11.5 L Hct 34.0 L MCV 101.2 H MCH 34.3 H MCHC 33.8 RDW 17.4 H Plt Count 157 Neut % (Auto) 66.2 Lymph % (Auto) 20.3 L Morrison % (Auto) 11.3 Eos % (Auto) 1.0 L Baso % (Auto) 1.2 Neut # (Auto) 2400 Lymph # (Auto) 700 L Morrison # (Auto) 400 Eos # (Auto) 0 Baso # (Auto) 0 Sodium 138 Potassium 4.4 Chloride 107 Carbon Dioxide 24 BUN 14 Creatinine 0.82 Estimated GFR > 60.0 BUN/Creatinine Ratio 17.1 Glucose 91 Calcium 8.9 Total Bilirubin 1.0 AST 56 ALT 34 Alkaline Phosphatase 61 Total Creatine Kinase 157 CK-MB (CK-2) 2.01 CK-MB (CK-2) Rel Index 1.3 L Troponin I < 0.012 < 0.012 NT-Pro-B Natriuret Pep Total Protein 6.7 Albumin 4.1 Globulin 2.6 Albumin/Globulin Ratio 1.6 Lipase 106 Ethyl Alcohol SARS-CoV-2 (PCR) 09/04/20 09/04/20 09/04/20 15:18 15:18 19:45 WBC RBC Hgb Hct MCV MCH MCHC RDW Plt Count Neut % (Auto) Lymph % (Auto) Morrison % (Auto) Eos % (Auto) Baso % (Auto) Neut # (Auto) Lymph # (Auto) Morrison # (Auto) Eos # (Auto) Baso # (Auto) Sodium Potassium Chloride Carbon Dioxide BUN Creatinine Estimated GFR BUN/Creatinine Ratio Glucose Calcium Total Bilirubin AST ALT Alkaline Phosphatase Total Creatine Kinase CK-MB (CK-2) CK-MB (CK-2) Rel Index Troponin I NT-Pro-B Natriuret Pep 1060 H Total Protein Albumin Globulin Albumin/Globulin Ratio Lipase Ethyl Alcohol 111 H SARS-CoV-2 (PCR) Negative Assessment & Plan Assessment & Plan narrative: 1. Acute congestive failure, type unknown, likely secondary to atrial fibrillation Plan: Echo, lasix, trend BNP. 2. Atrial fibrillation with rapid ventricular rate, acute on chronic. Plan: Continue home medications of diltiazem and metoprolol. Anticoagulation contraindicated secondary to alcoholism and fall risk. Telemetry. 3. Alcoholism, chronic Plan: CIWA protocol. Will start process for home health to provide social work support, medication management, and PT while patient's is away. 4. Hypertension, chronic Plan: See #2. 5. Weakness, acute on chronic, multifactorial Plan: PT. Code: Full DVT prophylaxis: SCDs COVID: Negative Disposition: Anticipate 1-2 nights. Quality VTE Deep Vein Thrombosis/Pulmonary Embolism Present on Admission: No
[2020-09-05] MEDS: LORazepam 2 MG/ML INJ IV ×5 (06:14→23:03)
[2020-09-05 06:37] LABS: Add Manual Diff / Slide Review NO; Basophils Absolute Auto 200 /uL (0-100); Basophils Percent Auto 3.4 % (0-2); Eosinophils Absolute Auto 100 /uL (0-450); Eosinophils Percent Auto 1.9 % (2-4); Hematocrit 34.3 % (41-53); Hemoglobin 11.5 g/dL (13.5-17.5); Lymphocytes Absolute Auto 1000 /uL (1100-4500); Lymphocytes Percent Auto 19.1 % (25-40); Mean Corpuscular HGB Conc 33.6 % (30-36); Mean Corpuscular Hemoglobin 33.9 PG (26-34); Mean Corpuscular Volume 100.9 fL (80-100); Monocytes Absolute Auto 600 /uL (0-900); Monocytes Percent Auto 12.2 % (3-14); Neutrophils Absolute Auto 3200 /uL (1500-7000); Neutrophils Percent Auto 63.4 % (50-75); Platelet Count 146 X10^3/uL (150-400); Red Cell Distribution Width 18.2 % (11.6-14.8)
[2020-09-05 06:48] LABS: Alanine Aminotransferase 30 IU/L (<50); Albumin 3.8 g/dL (3.5-5.0); Albumin Globulin Ratio 1.5 (1.0-2.8); Alkaline Phosphatase 58 U/L (38-126); Aspartate Aminotransferase 49 IU/L (17-59); BUN Creatinine Ratio 15.7 (6-22); Bilirubin Total 1.6 mg/dL (0.2-1.3); Blood Urea Nitrogen 14 mg/dL (9-20); Calcium 8.9 mg/dL (8.4-10.2); Carbon Dioxide 28 mmol/L (22-32); Chloride 100 mmol/L (98-107); Estimated Glomerular Filt Rate > 60.0 mL/min (>60); Globulin 2.5 g/dL (1.7-4.1); Glucose 127 mg/dL (80-110); HEMOLYSIS < 15 (0-50); Magnesium 1.5 mg/dL (1.6-2.3); Potassium 3.5 mmol/L (3.4-5.1); Sodium 136 mmol/L (137-145); Total Protein 6.3 g/dL (6.3-8.2)
[2020-09-05 06:56] LABS: NT-proBNP (BNP-Adult 18+) 2530 pg/mL (<125)
[2020-09-05 06:58] LABS: Troponin I < 0.012 ng/mL (0.01-0.034)
[2020-09-05 07:31] LABS: Thyroid Stimulating Hormone 1.75 uIU/mL (0.47-4.68)
[2020-09-05] MEDS: METOPROLOL IR 50 MG TABLET PO (09:16)
[2020-09-05] MEDS: FOLIC ACID 1 MG TABLET PO (09:16)
[2020-09-05] MEDS: THIAMINE 100 MG TABLET PO (09:16)
[2020-09-05] MEDS: dilTIAZem CD 120 MG CAP PO (09:16)
[2020-09-05] MEDS: MULTIVITAMIN 1 TABLET 1 TAB PO (09:16)
--- NOTE | 2020-09-05 10:35 | PT.IIE ---
Medical History (Last Reviewed 07/31/20 @ 23:50 by Justin Rasmussen DO) Alcohol abuse Atrial fibrillation Gout HTN (hypertension) Physical Therapy Inpatient Evaluation/Re-Eval M1 PT/OT-IP Prior Functional Status Start: 09/05/20 13:41 Freq: NEEDED Status: Active Protocol: Document 09/05/20 10:35 AB (Rec: 09/05/20 13:52 AB [id number]) Medical Review Prior Functional Status Medical History Reviewed Yes Communication able to maken nedds known Mobility and Gait pt stated that he is independent with all mobilities and ambulation without AD Social History Household Members spouse Living Arrangements House Number of Floors (Floors) Two Floors Number of Stairs To Enter/Railing? pt stays on main level of the house 3 steps to enter with wide rails: can only hold on to just 1 rail Home Environment Standard Height Toilet,Tub/ Shower Home Equipment Front Wheel Walker Additional Social History Comment pt stated that spouse is in [place] for a couple of months and he is alone at home at this time M2 PT-IP Current Condition Start: 09/05/20 13:41 Freq: NEEDED Status: Active Protocol: Document 09/05/20 10:35 AB (Rec: 09/05/20 13:52 AB [id number]) Physical Therapy Current Condition Current Condition Evaluation Date 09/05/20 Treatment Diagnosis A-fib; CHF; ETOH; difficulty in walking Onset Date 09/04/20 Precautions Other Precautions falls M3 PT-IP Subjective Start: 09/05/20 13:41 Freq: NEEDED Status: Active Protocol: Document 09/05/20 10:35 AB (Rec: 09/05/20 13:52 AB [id number]) Subjective Physical Therapy Visit Type Type Initial Evaluation Visit Start Time 10:35 Visit Stop Time 11:00 Total Visit Minutes 25 Number of PUTTY WORKER Visits 0 Physical Therapy Visit Comments Patient Comments pt is agreeable to do PT Therapy Pain Assessment Pain Present Pain Present Denied Pain M4 PT-IP Mobility and Gait Start: 09/05/20 13:41 Freq: NEEDED Status: Active Protocol: Document 09/05/20 10:35 AB (Rec: 09/05/20 13:52 AB [id number]) PT-Bed Mobility Assessment Supine to Sit Supine to Sit Standby Assistance,Bedrails PT-Transfer Assessment Sit to and From Stand Sit to and from Stand Contact Guard Assistance, Minimal Assistance,1 Person Assistance,Use of Upper Extremities Equipment Transfer Assistive Device Gait Belt,Front Wheeled Walker Orthotic/Prosthetic Devices or Brace: No Transfers Transfer Destination Chair Transfer Technique ambulated Transfer Ability Level of Assist Contact Guard Assistance, Minimal Assistance,1 Person Assistance,Use of Upper Extremities Comments Mobility Comments pt completed supine to sit SBA . able to sit on EOB SBA. completed sit to stand CGA to min A and cues and ambulated in room CGA to occasional min A. presents with unsteady shuffling gait. pt agreed to sit on the chair. positioned on the chair. call light and table placed within reach. informed nurse that pt needs a chair alarm. BP: 105/69 O2 sat 95% MS: varies: 80-85 bpm. pt without c/o dizziness/lightheadedness . Gait Assessment Gait Gait Assistance Required: Contact Guard Assist,Minimum Assistance Distance (Feet) 35 Able to Maintain Weight Bearing Status Yes During Gait Assistive Devices Assistive Device Gait Belt,Front Wheeled Walker Orthotic/Prosthetic Devices or Brace: No Gait Deviations General Gait Pattern Ataxic,Decreased Stride Length ,Decreased Feet Clearance Factors Limiting Gait Function Factors Limiting Gait Function Decreased Activity Tolerance, Decreased Strength,Poor Balance,Poor Safety Awareness PT-Balance Assessment Sitting Balance and Reactions Static Sitting Balance Ability Good Dynamic Sitting Balance Ability Good Standing Balance and Reactions Static Standing Balance Ability Fair Dynamic Standing Balance Ability Fair Device Used FWW M5 PT-IP Objective Assessments Start: 09/05/20 13:41 Freq: NEEDED Status: Active Protocol: Document 09/05/20 10:35 AB (Rec: 09/05/20 13:52 AB [id number]) Orientation Orientation/Cognition Level of Alertness Alert Orientation Name Language Function Ability Hard of Hearing Safety Awareness Decreased Safety Awareness Memory Description Short Term Impaired Gross Range of Motion Lower Extremity ROM Assessment Within Functional Limits Strength Lower Extremity Strength Assessment Within Functional Limits Muscle Tone Muscle Tone WNL Yes M6 PT-IP Treatment Start: 09/05/20 13:41 Freq: NEEDED Status: Active Protocol: Document 09/05/20 10:35 AB (Rec: 09/05/20 13:52 AB [id number]) Physical Therapy Treatment Education Education Provided Safety M7 PT-IP Assessment and Plan Start: 09/05/20 13:41 Freq: NEEDED Status: Active Protocol: Document 09/05/20 10:35 AB (Rec: 09/05/20 13:52 AB [id number]) PT Summary Assessment and Plan Potential Rehabilitation Potential Fair Status of Condition at Evaluation Evolving Summary Impairments Pain,ROM,Strength,Balance, Coordination,Sensation,Tone, Cognition,Bed Mobility, Transfers,Gait,Activity Tolerance Assessment Summary pt requiring CGA to min A with mobility using FWW. Pt lives by himself at this time due to spouse being in [place] for ~ 2 months. pt stated that his friend might be able to assist him but is not definite . pt will require assistance at this time. d/c plan depending on progress: SNF vs home with assistance and HHPT. Goals Bed Mobility Goal Independent Transfer Goal Independent,Front Wheeled Walker Gait Goal Independent,Front Wheel Walker Gait Distance 150 Other Goals improve ambulation without AD 150 ft SBA up/down 3 steps 1 rail SBA Days to Meet Goals 10 Frequency of Treatment Frequency Of Treatment Once a Day Treatment Plan Physical Therapy Treatment Plan Bed Mobility Training,Transfer Training,Gait Training, Therapeutic Exercise,Balance Retraining,Discharge Planning, Hot or Cold Pack,Neuromuscular Re-ed,Coordination Retraining ,Manual Therapy Precautions Other Precautions falls Recommendations To Nursing Amount of Assist Needed 1 Person Assist Discharge Recommendations PT Discharge Recommendations Home with Assistance,Home Health,SNF Rehab,Home vs SNF Transportation Needs at Discharge Private Vehicle,Wheelchair/ Cabulance
--- NOTE | 2020-09-05 10:51 | CM.DANOTE ---
Addendum entered by JEROME Gonsalves 09/05/20 15:24: ADD: Per PT and MD, pt could possibly benefit from HH at d/c which may be tomorrow pending his progress while admitted. signed F2F but not fully completed yet as unsure if pt will meet Homebound criteria pending progress. SW met bedside with pt again and discussed HH recommendation currently and pt denies any hx of HH and SW discussed their services and frequency and pt confirms that depending on how he feels at d/c he may be agreeable with HH. SW provided HH Choice list and pt has no preference but due to his home being on [facility] and based on Vendor Calendar, SW faxed initial referral to [facility] and left msg with new potential referral based on pt progress with PT tomorrow. SW inquired with pt about his alcohol use and discussion with this afternoon bedside with pt if he wanted ETOH resources. Pt states he does not feel that Inpt [facility] tx was helpful but he has a plan of trying AA meetings with a friend of his and declined further ETOH resources at this time. Pt seemed somewhat slow in his processing and SW may need to discuss HH again tomorrow if HH still recommended. Plan: SW to follow closely tomorrow after further PT to determine if HH still needed and then faxing [facility] F2F, orders, and d/c summary if needed. JEROME Gonsalves Original Note: Patient is a 75 yo male who was admitted on 09/04/20 for AFIB, weakness. Pt has [facility] and [employer] for insurance and his PCP is Dr. Cris Reyna. EMR was reviewed. Per , pt with long hx of ETOH abuse and withdrawal/seizures and admitted with CHF and AFIB. Pt's JESUS was 111 at admission and placed on CIWA protocol. SW met bedside with pt and explained role and pt confirms that he still lives in [place] with his spouse and is mostly independent with ADL's. Pt drives and his vehicle is in the parking lot as pt's friends helped drive him to the ER and left his vehicle so he has transport home as pt's spouse is currently in [place] with their Dtr awaiting the of their grandchild and spouse had plans to stay for at least a month in [place] to help Dtr after delivery. SW discussed pt's multiple ED visits in the past year or two for falls and medical needs and his ETOH use. Pt admits that drinking has not helped. Patient reports that he has stopped drinking on several occasions with minimal symptoms but that last year he had seizures related to ETOH and that he was in treatment in [address] last year and paid privately for inpatient treatment as he was given ultimatum by spouse. Pt typically drinks 3-4 beer and 3-4 shots whiskey daily. Pt confirms he still feels weak and very SOB and states his spouse is aware he was admitted last night to the hospital. PT ordered and pending and unclear if pt medically appropriate to participate with PT today yet or not. Pt receiving his medications from RN and PATTERN GRADER CUTTER in and SW to follow for further discussion regarding ETOH use and any resources pt may be agreeable to. Plan: SW to follow for MD to round to determine when pt medically stable to discharge and further discussion with pt regarding his alcohol use and [facility] resources. JEROME Gonsalves Discharge Planning/Care Management CM Discharge Assessment Start: 09/05/20 10:47 Freq: Status: Active Protocol: Document 09/05/20 10:47 BF (Rec: 09/05/20 10:51 BF [id number]) Discharge Planning Assessment Assigned Store Team Member JEROME Parks DPOA/Assigned Designee Name spouse Marya Contact Information [phone] Advance Directives? No Advance Directives on File No History Provided By Patient,Medical Record Has Patient been admitted in last 30 Yes days? Comment July 2020 Prior Living Arrangements House Household Members spouse Type of transporation used prior to Drives own vehicle admit Independent with ADL's Yes Is patient alert and oriented? Yes: some forgetfulness Needs Assistance With Managing Medications Caregiver for Another No Patient/Family Preference Drug/Alcohol Rehab Comment Patient with h/o etoh abuse. treatment in [place] last 2019. Patient has needed resources and acknowledges that he knows what he has to do. Discharge Plan Home Transportation Arrangement has own vehicle in the parking lot Referrals Initiated Other Additional Comment Resources offered for ETOH, patient reports having the information needed. INTERNATIONAL MARKETING COORDINATOR encouraged AA meetings via virtual methods. Review Status In Process Please Provide Date Initial DC 09/05/20 Assessment Was Performed Next Review Type Continued Stay Review
[2020-09-05] MEDS: FUROSEMIDE 40 MG/4 ML VIAL IV (11:33)
[2020-09-05] MEDS: MAGNESIUM SULFATE 2 GM/50 ML PIGGYBACK IV (18:06)
[2020-09-05] MEDS: POTASSIUM CHLORIDE 20 MEQ TAB 40 MEQ PO (18:07)
[2020-09-05 18:18] LABS: Phosphorous 3.2 mg/dL (2.3-3.7)
[2020-09-06 03:00] VITALS: BP 107/65; PULSE 64; RESP 16; TEMP 36.6; O2SAT 97
[2020-09-06 06:05] LABS: Add Manual Diff / Slide Review NO; Basophils Absolute Auto 100 /uL (0-100); Basophils Percent Auto 1.2 % (0-2); Eosinophils Absolute Auto 200 /uL (0-450); Eosinophils Percent Auto 3.1 % (2-4); Hematocrit 33.6 % (41-53); Hemoglobin 11.3 g/dL (13.5-17.5); Lymphocytes Absolute Auto 1100 /uL (1100-4500); Lymphocytes Percent Auto 20.1 % (25-40); Mean Corpuscular HGB Conc 33.7 % (30-36); Mean Corpuscular Hemoglobin 34.2 PG (26-34); Mean Corpuscular Volume 101.4 fL (80-100); Monocytes Absolute Auto 500 /uL (0-900); Monocytes Percent Auto 9.8 % (3-14); Neutrophils Absolute Auto 3500 /uL (1500-7000); Neutrophils Percent Auto 65.8 % (50-75); Platelet Count 129 X10^3/uL (150-400); Red Blood Cell Count 3.31 X10^6/uL (4.5-5.9); Red Cell Distribution Width 17.8 % (11.6-14.8); White Blood Cell Count 5.4 X10^3/uL (4.5-11.0)
[2020-09-06 06:17] LABS: Alanine Aminotransferase 26 IU/L (<50); Albumin 3.6 g/dL (3.5-5.0); Albumin Globulin Ratio 1.4 (1.0-2.8); Alkaline Phosphatase 52 U/L (38-126); Aspartate Aminotransferase 41 IU/L (17-59); BUN Creatinine Ratio 23.6 (6-22); Bilirubin Total 0.9 mg/dL (0.2-1.3); Blood Urea Nitrogen 21 mg/dL (9-20); Calcium 9.2 mg/dL (8.4-10.2); Carbon Dioxide 28 mmol/L (22-32); Chloride 101 mmol/L (98-107); Estimated Glomerular Filt Rate > 60.0 mL/min (>60); Globulin 2.5 g/dL (1.7-4.1); Glucose 99 mg/dL (80-110); HEMOLYSIS < 15 (0-50); Magnesium 1.8 mg/dL (1.6-2.3); Potassium 4.1 mmol/L (3.4-5.1); Sodium 135 mmol/L (137-145); Total Protein 6.1 g/dL (6.3-8.2)
[2020-09-06 06:26] LABS: NT-proBNP (BNP-Adult 18+) 1400 pg/mL (<125)
[2020-09-06 08:00] VITALS: O2SAT 96
[2020-09-06 08:11] VITALS: BP 114/78; PULSE 76; RESP 20; TEMP 36.5; O2SAT 96
--- NOTE | 2020-09-06 09:07 | PT.IPTN ---
Physical Therapy Treatment Note M2 PT-IP Current Condition Start: 09/05/20 13:41 Freq: NEEDED Status: Active Protocol: Document 09/05/20 10:35 AB (Rec: 09/05/20 13:52 AB [id number]) Physical Therapy Current Condition Current Condition Evaluation Date 09/05/20 Treatment Diagnosis A-fib; CHF; ETOH; difficulty in walking Onset Date 09/04/20 Precautions Other Precautions falls M3 PT-IP Subjective Start: 09/05/20 13:41 Freq: NEEDED Status: Active Protocol: Document 09/06/20 08:54 LJ (Rec: 09/06/20 09:07 LJ [id number]) Subjective Physical Therapy Visit Type Type Treatment Note Visit Start Time 08:42 Visit Stop Time 08:55 Total Visit Minutes 13 Number of CIGARETTE CATCHER Visits 1 Physical Therapy Visit Comments Patient Comments pt is agreeable to do PT M4 PT-IP Mobility and Gait Start: 09/05/20 13:41 Freq: NEEDED Status: Active Protocol: Document 09/06/20 08:54 LJ (Rec: 09/06/20 09:07 LJ [id number]) PT-Transfer Assessment Sit to and From Stand Sit to and from Stand Contact Guard Assistance,1 Person Assistance,Use of Upper Extremities Equipment Transfer Assistive Device Gait Belt,Front Wheeled Walker Orthotic/Prosthetic Devices or Brace: No Transfers Transfer Destination Chair Transfer Technique ambulated Transfer Ability Level of Assist Contact Guard Assistance, Minimal Assistance,1 Person Assistance,Use of Upper Extremities Comments Mobility Comments Pt in chair upon arrival. Sit< >stand using UEs CGA. Pt ambulated with FWW to stairs and back to room 265 feet CGA. Pt required cueing to avoid bumping into mccrary on 3 occasions. Pt without dizziness, LOB, nor fatigue but unsteady on his feet. Gait Assessment Gait Gait Assistance Required: Contact Guard Assist,Minimum Assistance Distance (Feet) 35 Able to Maintain Weight Bearing Status Yes During Gait Assistive Devices Assistive Device Gait Belt,Front Wheeled Walker Orthotic/Prosthetic Devices or Brace: No Gait Deviations General Gait Pattern Ataxic,Decreased Stride Length ,Decreased Feet Clearance Factors Limiting Gait Function Factors Limiting Gait Function Decreased Activity Tolerance, Decreased Strength,Poor Balance,Poor Safety Awareness Comments Gait Comments Pt unsteady on his feet and tendency to bump into obstacles and mccrary on several occasons. Has difficulty following directions with consistency. See mobility section also. Stair Climbing Assessment Evaluation Level of Assist On Stairs Contact Guard Assistance, Minimal Assistance Devices Stair Climbing Assistive Devices Left Railing Technique/Endurance Stair Climbing Direction Ascend and Descend Stair Climbing Technique Step Over Step,Step to Step Number of Steps Climbed 3 Stair Climbing Set # Repetitions (reps) 3 Comments Stair Climbing Comments Pt having difficulty following directions for step pattern and which rail to hold. Instructed to use step-to pattern which he was able to do consistently on 3rd attempt . M5 PT-IP Objective Assessments Start: 09/05/20 13:41 Freq: NEEDED Status: Active Protocol: Document 09/05/20 10:35 AB (Rec: 09/05/20 13:52 AB [id number]) Orientation Orientation/Cognition Level of Alertness Alert Orientation Name Language Function Ability Hard of Hearing Safety Awareness Decreased Safety Awareness Memory Description Short Term Impaired Gross Range of Motion Lower Extremity ROM Assessment Within Functional Limits Strength Lower Extremity Strength Assessment Within Functional Limits Muscle Tone Muscle Tone WNL Yes M6 PT-IP Treatment Start: 09/05/20 13:41 Freq: NEEDED Status: Active Protocol: Document 09/06/20 08:54 LJ (Rec: 09/06/20 09:07 LJ [id number]) Physical Therapy Treatment Education Education Provided Safety M7 PT-IP Assessment and Plan Start: 09/05/20 13:41 Freq: NEEDED Status: Active Protocol: Document 09/06/20 08:54 LJ (Rec: 09/06/20 09:07 LJ [id number]) PT Summary Assessment and Plan Potential Rehabilitation Potential Fair Status of Condition at Evaluation Evolving Summary Impairments Pain,ROM,Strength,Balance, Coordination,Sensation,Tone, Cognition,Bed Mobility, Transfers,Gait,Activity Tolerance Assessment Summary Pt requires CGA to Puma with transfers and gait. Puma primarily for cueing to avoid obstacles and patterning on stairs. Pt still unclear whether or not his friend can assist him upon d/c. Recommend SNF vs HHPT or home with assistance. States he has FWW at home should he go home. Goals Bed Mobility Goal Independent Transfer Goal Independent,Front Wheeled Walker Gait Goal Independent,Front Wheel Walker Gait Distance 150 Other Goals improve ambulation without AD 150 ft SBA up/down 3 steps 1 rail SBA Days to Meet Goals 10 Frequency of Treatment Frequency Of Treatment Once a Day Treatment Plan Physical Therapy Treatment Plan Bed Mobility Training,Transfer Training,Gait Training, Therapeutic Exercise,Balance Retraining,Discharge Planning, Hot or Cold Pack,Neuromuscular Re-ed,Coordination Retraining ,Manual Therapy Precautions Other Precautions falls Recommendations To Nursing Amount of Assist Needed 1 Person Assist Discharge Recommendations PT Discharge Recommendations Home with Assistance,Home Health,SNF Rehab,Home vs SNF Transportation Needs at Discharge Private Vehicle,Wheelchair/ Cabulance
[2020-09-06] MEDS: MULTIVITAMIN 1 TABLET 1 TAB PO (09:39)
[2020-09-06] MEDS: dilTIAZem CD 120 MG CAP PO (09:39)
[2020-09-06] MEDS: FOLIC ACID 1 MG TABLET PO (09:39)
[2020-09-06] MEDS: THIAMINE 100 MG TABLET PO (09:39)
--- NOTE | 2020-09-06 11:13 | PM.DS.1 ---
History of Present Illness History of Present Illness Date Patient Seen: 09/06/20 Time Patient Seen: 11:15 Chief complaint: AFIB UNABLE TO STAND UP LOOSE BALANCE Narrative: 75-year-old alcoholic male presents from the ER with CHF and atrial fibrillation. Prior to admission, he was supposed to be meeting his friend for lunch but called him and told him that he could not move or get up. His friend went to his home and found him sitting on a bench, unable to move, and called 911. In the emergency department, vital signs included a temperature of 98.6?, pulse 127, respiratory rate 18, blood pressure 144/97, and O2 saturation 96% on room air. With any movement, he desaturated into the 80s. CT angiogram ruled out PE but did show that patient had a bilateral pneumonia, left greater than right. However, chest x-ray showed the LLL opacity was similar to the 07/03 CT scan and patient had no evidence of a white count, fever, or cough. ED physician thought pneumonia clinically unlikely and he was not started on antibiotics. BNP was 1060 and he was found to be in atrial fibrillation with a rapid ventricular rate. He has been off of his home medications. His helps manage his medications but she is gone for the next 2 months awaiting the of a grandchild in October. Was given diltiazem 10 mg IV x 1, Lasix 40 mg IV x1, and restarted on his home medications of metoprolol and diltiazem prior to being transferred to the floor. Blood alcohol content was 111 and he was placed on CIWA protocol, uneventful night. Did receive Ativan last night for tremors, nothing since. Reports that his last drink was a couple of bourbons 2 days ago. CIWA this morning was zero. Generally has 3-4 beers and 3-4 shots of scotch/bourbon a day. He has never been placed on anticoagulation due to his alcoholism and high risk of falls. Discharge Providers Provider Date of admission: 09/04/20 19:47 Discharge Date: 09/06/20 Primary care physician: Cris Reyna MD Consults: 09/04/20 22:13 Consult to Discharge Planning Routine Comment: Consult to Occupational Therapy Evaluate & Treat Comment: Physician Instructions: Evaluate and treat Consult to Physical Therapy Evaluate & Treat Comment: Physician Instructions: Evaluate and Treat Discharge provider: Cris Reyna MD Summary Hospital Course Discharge Diagnosis: 1. Acute congestive failure with preserved ejection fraction, likely secondary to atrial fibrillation, improved. 2. Atrial fibrillation with rapid ventricular rate, acute on chronic, improved. 3. Alcoholism, chronic 4. Hypertension, chronic 5. Weakness, acute on chronic 6. Anemia, macroytic, chronic, likely secondary to alcoholism 7. 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 Patient was restarted on his home diltiazem and metoprolol after receiving IV diltiazem in the ED and he was rate controlled throughout his stay. [facility] protocol was followed closely and patient did require Ativan during both nights of his admission. Echo on 09/04/20 revealed an ejection fraction of 50-55%, an overall improvement in his left ventricular function. Received IV Lasix 40 mg x 1 with reduction in BNP. No peripheral edema or crackles on exam on day of discharge. On day of discharge, he is afebrile with stable vital signs throughout. Extensive conversations were had with social work and patient's regarding discharge planning. Patient's is currently in [place] supporting her daughter who has a high risk and she will be there for the next few months. Patient thus now lives alone, approximately 7 [place]. He has had 9 ER/inpatient visits for alcohol-related issues in the last 14 months including one complicated by a 3+ hours delirium tremens seizure that required intubation and transfer to [facility] for higher level of support. After undergoing 5 weeks of inpatient chemical dependency, he was discharged to home and began drinking again. He has had a cognitive decline since his seizure and voluntary gave up driving at that time. However, during this inpatient admission, patient reported that he had driven himself to the hospital. Admission blood alcohol content 110 mg/dL. [place] Department of Licensing [employer] Operator Evaluation Request form completed and faxed to the DOL. Discharge options discussed with patient including a nursing home facility versus going home with home health for nursing home and PT and Meals on Wheels. Patient chose the latter. Patient advised that he was not medically cleared to drive as he was a potential harm to both himself and others on the road. He demonstrated understanding but couldn't believe that his JESUS was 111 yesterday since he had not had anything to drink. arranged for family friends to take him home and to take away his car keys. Alcohol cessation resources discussed with patient including Alcoholics Anonymous. Patient does have a sponsor but has not yet started going to group meetings. Discussed importance of compliance with medications to avoid repeat atrial fibrillation with rapid ventricular response and acute CHF attack. He demonstrated understanding. Questions answered. Plan will be to follow up in 1 week. Goals at that visit: 1. Ensure Home Health and Meals on wheels have started. 2. Ensure patient is not driving. 3. Check vital signs and EKG to ensure rate control. 4. Check for clinical signs of heart failure. 5. Discuss alcohol cessation resources. 6. Discuss and offer counseling. 7. Check BNP and BMP. 8. Check compliance of metoprolol and diltiazem. Greater than 191 minutes was spent in physician prolonged services from 11:15 to 13:46. This included evaluating the status of the patient, communicating with the patient and family with multiple phone calls, and directing the team (social work, nursing, and PT) attending the patient. Exam Vital Signs (past 8 hours): - 09/06/20 08:00 09/06/20 08:11 Temperature 97.7 F Pulse Rate 76 Respiratory Rate 20 Blood Pressure 114/78 Pulse Oximetry 96 96 Oxygen Delivery Method Room Air Oxygen Flow Rate 0 Narrative Exam Narrative: GENERAL: Alert and oriented, appearing stated age and in no acute distress. HEENT: Head normocephalic/atraumatic. LUNGS: Clear to ausculation bilaterally, no wheezes, rhonchi or rales. CV: Irregularly irregular, no audible murmurs, rubs or gallops. ABDOMEN: Soft, non-tender, non-distended, no organomegaly. Positive bowel sounds. EXTREMITIES: No clubbing, cyanosis, or edema. NEURO: Cranial nerves II through XII grossly intact, no focal deficits. PSYCH: Alert and oriented x 3. SKIN: No concerning lesions. Objective Labs Result Diagrams: 09/06/20 05:54 09/06/20 05:54 Labs: Laboratory Results - last 24 hr 09/05/20 09/06/20 09/06/20 17:58 05:54 05:54 WBC 5.4 RBC 3.31 L Hgb 11.3 L Hct 33.6 L MCV 101.4 H MCH 34.2 H MCHC 33.7 RDW 17.8 H Plt Count 129 L Neut % (Auto) 65.8 Lymph % (Auto) 20.1 L Blanco % (Auto) 9.8 Eos % (Auto) 3.1 Baso % (Auto) 1.2 Neut # (Auto) 3500 Lymph # (Auto) 1100 Blanco # (Auto) 500 Eos # (Auto) 200 Baso # (Auto) 100 Sodium 135 L Potassium 4.1 Chloride 101 Carbon Dioxide 28 BUN 21 H Creatinine 0.89 Estimated GFR > 60.0 BUN/Creatinine Ratio 23.6 H Glucose 99 Calcium 9.2 Phosphorus 3.2 Magnesium 1.8 Total Bilirubin 0.9 AST 41 ALT 26 Alkaline Phosphatase 52 NT-Pro-B Natriuret Pep 1400 H Total Protein 6.1 L Albumin 3.6 Globulin 2.5 Albumin/Globulin Ratio 1.4 PFSH Medical History (Updated 09/04/20 @ 19:47 by Dawn Paez DO) Alcohol abuse Atrial fibrillation Gout HTN (hypertension) Social History marital status: household members: spouse occupational status: previously employed Smoking Status: Former smoker alcohol intake: current substance use type: does not use Discharge Plan Discharge Plan Patient Disposition: Home Provider Discharge Comment: [facility] Department of Licensing will be 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 You are not medically cleared to drive due to history of drinking and driving. You may be able to earn back your license to drive by going through AA, chemical dependency counseling, maintaining your sobriety, and complying with your prescribed medications. Earning back your license is not guaranteed. The Dept. of Licensing will have more information regarding this process. Discharge orders & Medications Prescriptions: Continued metoprolol tartrate 50 mg tablet 50 mg PO BID Qty: 60 RF: 0 diltiazem HCl 120 mg capsule,extended release 24 hr 120 mg PO DAILY RF: 0 Follow up/Referrals: Cris Reyna MD [Primary Care Provider] - Diet/Activity/Treatments Diet: Diet as Tolerated Activity: Ambulate with walker as tolerated. Skin/Wound/Dressing Care Report to your healthcare provider any signs of infection, such as:: chills, fever and increased pain Visit Report/Discharge Packet Instructions: Delirium Tremens, DI for Heart Failure, Drug and Alcohol Withdrawal Discharge Data Primary Care Provider: Cris Reyna Quality VTE Deep Vein Thrombosis/Pulmonary Embolism Present on Admission: No
--- NOTE | 2020-09-06 12:18 | CM.DPC ---
Addendum entered by Yady Bartlett LPN 09/06/20 12:39: Pt is now up, dressed and waiting for final d/c paperwork. He confirms that he has called a friend who will pick him up, take him home and help him prn. Addendum entered by Yady Bartlett LPN 09/06/20 12:26: JAMAL #2 presented to pt. Pt has again confirmed that he is willing to try the Home Health services. Original Note: dcp: continued: spoke today with Dr. Reyna re pt and his d/c issues/options. Was joined in conversation by CM spd manager Mitra (MRI SUPERVISOR team following this case not available today). Pt is expected to d/c today. Dr. Reyna is partnering with pt's who is attending to her daughter and will be out of state for the foreseeable future. They are facilitating a family friend/neighbor to pick pt up and take him home. They will stop for any needed medications or food supplies on the way. HH referral is now completed for [facility] RN/PT/MRI SUPERVISOR and have also left a for [employer] on [employer], [facility] [phone] with pt's name and contact info. Dr. Reyna is following up on process of altering DME that pt is not safe to drive anymore. P:at this time: home today as per above
--- NOTE | 2020-09-06 12:26 | OT.IPNOTE ---
Chart reviewed, consulted nursing and MD. MD agrees that no OT eval is necessary at this time as pt is dressed and planned for discharge today. Will discharge order per .
--- NOTE | 2020-09-06 14:56 | PC.NURSE ---
Pt is dressed and ready for discharge home with friend. IV has been removed. Pt agrees not to drive and friend has agreed to take Pt's keys. Friend's Spouse will be driving Pt's car home. Pt was informed that the Department of Licensing has been notified that Pt has a hx of driving while intoxicated and he is unable to drive until he is cleared by Dr. Reyna and D.O.L. Discussed with Pt that [facility] [employer] [facility] will start service to him on Monday and he will be set up with H/H. Pt states he has a couple of days worth of food available at home until [facility] sees him. Went over d/c instructions with Pt and Friend-discussed d/c meds, time of last dose, reiterated again to Pt. and Friend that Pt must consistently take his metoprolol and diltiazem as ordered or he could end up in rapid afib and heart failure once again. Verbally reviewed and gave written documentation of Dr. Reyna's discharge instructions and Pt denied further questions. Pt out via w/c by JACQUARD FIXER to POV with friend and all belongings.
== END 2020-09-06 14:30 | disposition home or self-care (01) | DRG 291 ==
LOC: ED 19:47 → AC 19:48
PROVIDERS: Admitting Provider Student in an Organized Health Care Education/Training Program; Emergency Provider Emergency Medicine; PCP Student in an Organized Health Care Education/Training Program; Referring Provider Emergency Medicine; Visit Provider Student in an Organized Health Care Education/Training Program
DX: I11.0 Hypertensive heart disease with heart failure (principal); I50.31 Acute diastolic (congestive) heart failure; I48.20 Chronic atrial fibrillation, unspecified; F10.20 Alcohol dependence, uncomplicated; Y90.5 Blood alcohol level of 100-119 mg/100 ml; D50.8 Other iron deficiency anemias; R41.81 Age-related cognitive decline; R53.1 Weakness; Z20.822 Contact with and (suspected) exposure to COVID-19
CPT/HCPCS: 36415; 70450; 71045; 71275; 80053; 80320; 81003; 82550; 82553; 83690; 83735; 83880; 84100; 84443; 84484; 85025; 87635; 93005; 93010; 93306; 94762; 96374; 96375; 97116; 97162; 99284; C9803; J1940; J2060; J3475; Q9967

== ENCOUNTER 2020-11-07 16:32 | Inpatient (IN) | payer MEDICARE, OTHER, SELFPAY ==
[2019-07-03 21:02] VITALS: PULSE 98; RESP 16; O2SAT 98
[2020-09-04 20:39] VITALS: BMI 23.5
[2020-11-07] VITALS (10 sets, daily range): BP systolic 151–157; BP diastolic 79–105; PULSE 88–150; RESP 14–32; TEMP 36.9; O2SAT 90–98; BMI 22.8; BMI 23.4
--- NOTE | 2020-11-07 16:40 | ED_ITS ---
HPI - Seizure General Chief Complaint: Seizure Stated Complaint: seizure Time Seen by Provider: 11/07/20 16:39 History of Present Illness HPI Narrative: The patient is a 75-year-old male history of dementia, alcohol use, atrial fibrillation presenting with seizure. He is here with family his brother brings him in today after witnessed seizure in the car. He has been with him since yesterday at 11:00 a.m.. He he noticed last evening he was starting to not feel well he gave him a little bit of alcohol. Today in the car while driving he was starting to really and not feel well and then he had shaking unresponsive episode where he became very stiff eyes rolled in the back of his head seizure-like activity for about 20 seconds. It took him a while to respond. Is a he was then brought to the emergency department. He remains confused about why he is here. Brother states he is overall a poor historian and forgets things very easily. He is currently living at home alone his is with his daughter. The thought is he drinks alcohol heavily consistently all day. He likely did not drink enough alcohol yesterday. There is concern that he is not eating and doing well at home alone. Patient denies any pain. He is overall an extremely poor historian, all history is brother. Related Data Home Medications Medication Instructions Recorded Confirmed diltiazem HCl 120 mg capsule,24 120 mg PO DAILY 09/04/20 09/04/20 hr,extended release Previous Rx's Medication Instructions Recorded metoprolol tartrate 50 mg tablet 50 mg PO BID #60 tab 01/21/20 Allergies Allergy/AdvReac Type Severity Reaction Status Date / Time amoxicillin [AMOXICILLIN] Allergy Severe SWOLLEN JAW Verified 11/07/20 16:45 clindamycin [CLINDAMYCIN] AdvReac Severe C-DIFF Verified 11/07/20 16:45 Review of Systems Review of Systems ROS Unobtainable: Unobtainable due to medical condition Patient History Medical History (Updated 11/07/20 @ 17:55 by Dawn Paez DO) Alcohol abuse Atrial fibrillation Gout HTN (hypertension) Social History marital status: household members: spouse occupational status: previously employed Smoking Status: Former smoker alcohol intake: current substance use type: does not use Smoking Status: Former smoker alcohol intake frequency: 3 or more drinks per day Alcohol type: hard liquor Substance Use Type: does not use Exam Initial Vital Signs Initial Vital Signs: Vital Signs Blood Pressure 157/105 H 11/07/20 16:37 GENERAL: Alert 75-year-old male confused HEENT: Head atraumatic,EOMI, pupils reactive, face symmetric, no tongue injury CARDIOVASCULAR: Irregularly irregular tachycardic RESPIRATORY: Breath sounds equal bilaterally, no wheezes rales or rhonchi. ABDOMEN: Soft, nontender. Normoactive bowel sounds all 4 quadrants. No guarding or rebound. EXTREMITIES: Normal range of motion, no clubbing or edema. Neurovascularly intact NEUROLOGICAL: Alert and oriented x2. Pre Assembly Wirer strength equal bilaterally SKIN: Warm, dry, no laceration, no petechiae, no rashes or lesions. Course Orders Ordered: ED Orders 11/07/20 16:42 EKG-12 Lead Stat 11/07/20 16:45 Complete Blood Count AUTO DIFF Stat Ethanol (ETOH) Stat Magnesium Stat Phosphorous Stat Prolactin Stat 11/07/20 16:52 CT head/brain wo con Stat Chest [XR chest 1V] Stat 11/07/20 16:54 Comprehensive Metabolic Panel Stat NT-proBNP (BNP-Adult 18+) Stat Troponin & CK Cardiac Panel Stat 11/07/20 16:55 COVID19 -Nasal swab/Pre-Proc Stat 11/07/20 16:56 COVID19 - ADMIT (DIAL POLISHER swab/PCR) Stat 11/07/20 18:34 Urinalysis and Microscopic Stat Urine Drug Screen, Rapid Stat Education, smoking cessation ONGOING 11/07/20 18:38 Consult to Dietitian, Adult Routine 11/08/20 07:00 Complete Blood Count AUTO DIFF DAILY Comprehensive Metabolic Panel DAILY Magnesium Routine 11/09/20 07:00 Complete Blood Count AUTO DIFF DAILY Comprehensive Metabolic Panel DAILY 11/10/20 07:00 Comprehensive Metabolic Panel DAILY Metoprolol Tartrate (Metoprolol Ir 50 Mg Tablet) 50 mg PO BID MIKEL Discontinued Medications Chlordiazepoxide HCl (Chlordiazepoxide 25 Mg Capsule) 25 mg PO TID MIKEL Enoxaparin Sodium (Enoxaparin 40 Mg/0.4 Ml Syringe) 40 mg SUBCUT DAILY MIKEL Folic Acid (Folic Acid 1 Mg Tablet) 1 mg PO DAILY MIKEL Haloperidol (Haloperidol 5 Mg/Ml Vial) 2 mg IV Q1HR PRN PRN Reason: Hallucinations Sodium Chloride (Normal Saline 0.9%) 1,000 mls @ 125 mls/hr IV CONT MIKEL Magnesium Sulfate 2 gm/ Folic Acid 1 mg/ Thiamine HCl 100 mg / Multivitamins 10 ml/ Sodium Chloride 1,015.2 mls @ 125 mls/hr IV NOW ONE Stop: 11/08/20 02:45 Lorazepam (Lorazepam 2 Mg/Ml Inj) 4 mg IV Q15MIN MIKEL Lorazepam (Lorazepam 2 Mg/Ml Inj) 2 mg IV Q15MIN PRN PRN Reason: Alcohol Withdrawal Multivitamins (Multivitamin 1 Tablet) 1 tab PO DAILY MIKEL Naloxone HCl (Naloxone 0.4 Mg/Ml Vial) 0.2 mg IV Q2MIN PRN PRN Reason: Opiate Reversal Naloxone HCl (Naloxone 0.4 Mg/Ml Vial) 0.2 mg IV Q2MIN PRN PRN Reason: Opiate Reversal Ondansetron HCl (Ondansetron 4 Mg/2 Ml Inj) 4 mg IV Q4HR PRN PRN Reason: Nausea And Vomiting Phenobarbital (Phenobarbital 65 Mg/Ml Vial) 260 mg IV NOW ONE Stop: 11/07/20 16:43 Last Admin: 11/07/20 16:48 Dose: 260 mg Documented by: VELVET Thiamine HCl (Thiamine 100 Mg Tablet) 100 mg PO DAILY MIKEL Stop: 11/11/20 09:01 Vital Signs Vital signs: Vital Signs - 8 hr 11/07/20 16:37 11/07/20 16:38 11/07/20 16:45 Pulse Rate 150 H 126 H Respiratory Rate 27 H 19 Blood Pressure 157/105 H 157/105 H Pulse Oximetry 90 L 90 L 11/07/20 17:00 11/07/20 17:30 11/07/20 18:00 Pulse Rate 119 H 110 H 97 H Respiratory Rate 16 23 14 Blood Pressure Pulse Oximetry 94 98 96 MDM - Seizure Lab Data Result diagrams: 11/07/20 16:45 11/07/20 16:54 Labs: Lab Results 11/07/20 11/07/20 11/07/20 Range/Units 16:45 16:45 16:54 WBC 4.8 (4.5-11.0) X10^3/uL RBC 3.36 L (4.5-5.9) X10^6/uL Hgb 11.8 L (13.5-17.5) g/dL Hct 35.8 L (41-53) % MCV 106.4 H (80-100) fL MCH 35.1 H (26-34) PG MCHC 33.0 (30-36) % RDW 14.2 (11.6-14.8) % Plt Count 177 (150-400) X10^3/uL Neut % (Auto) 47.9 L (50-75) % Lymph % (Auto) 35.2 (25-40) % Dickenson % (Auto) 14.6 H (3-14) % Eos % (Auto) 1.2 L (2-4) % Baso % (Auto) 1.1 (0-2) % Neut # (Auto) 2300 (4943-0997) /uL Lymph # (Auto) 1700 (3260-8065) /uL Dickenson # (Auto) 700 (0-900) /uL Eos # (Auto) 100 (0-450) /uL Baso # (Auto) 100 (0-100) /uL Sodium 139 (137-145) mmol/L Potassium 3.5 (3.4-5.1) mmol/L Chloride 103 (98-107) mmol/L Carbon Dioxide 24 (22-32) mmol/L BUN 16 (9-20) mg/dL Creatinine 1.19 (0.66-1.25) mg/dL Estimated GFR 59.8 L (>60) mL/min BUN/Creatinine Ratio 13.4 (6-22) Glucose 128 H (80-110) mg/dL Calcium 9.1 (8.4-10.2) mg/dL Phosphorus 2.9 (2.3-3.7) mg/dL Magnesium 1.5 L (1.6-2.3) mg/dL Total Bilirubin 0.5 (0.2-1.3) mg/dL AST 92 H (17-59) IU/L ALT 78 H (<50) IU/L Alkaline Phosphatase 101 (38-126) U/L Total Creatine Kinase 56 (55-170) U/L CK-MB (CK-2) TNP CK-MB (CK-2) Rel Index TNP Troponin I < 0.012 (0.01-0.034) ng/mL NT-Pro-B Natriuret Pep 497 H (<125) pg/mL Total Protein 6.9 (6.3-8.2) g/dL Albumin 4.3 (3.5-5.0) g/dL Globulin 2.6 (1.7-4.1) g/dL Albumin/Globulin Ratio 1.7 (1.0-2.8) Prolactin 58.1 H (3.7-17.9) ng/mL Urine Color Urine Appearance Urine pH Ur Specific [place] Urine Protein Urine Glucose (UA) Urine Ketones Urine Occult Blood Urine Nitrate Urine Bilirubin Ur Bilirubin Confirm Urine Urobilinogen Ur Leukocyte Esterase Urine RBC (0-5/HPF) Urine WBC (0-5/HPF) Ur Squamous Epith Cells (0-5/HPF) Calcium Oxalate Crystal Amorphous Sediment Urine Bacteria (None) Hyaline Casts (None) Urine Mucus (Negative) Ur Culture Indicated? U Opiates 300ng/mL cut (Negative) Ur Oxycodone Screen (Negative) Urine Methadone Screen (Negative) Ur Barbiturates Screen (Negative) U Tricyclic Antidepress (Negative) Ur Phencyclidine Scrn (Negative) Ur Amphetamines Screen (Negative) U Methamphetamines Scrn (Negative) Ur MDMA Scrn (Ecstasy) (Negative) U Benzodiazepines Scrn (Negative) Urine Cocaine Screen (Negative) U Marijuana (THC) Screen (Negative) Ethyl Alcohol < 10 ( - 10) mg/dL SARS-CoV-2 (PCR) (Negative) 11/07/20 11/07/20 11/07/20 Range/Units 16:55 16:56 18:32 WBC (4.5-11.0) X10^3/uL RBC (4.5-5.9) X10^6/uL Hgb (13.5-17.5) g/dL Hct (41-53) % MCV (80-100) fL MCH (26-34) PG MCHC (30-36) % RDW (11.6-14.8) % Plt Count (150-400) X10^3/uL Neut % (Auto) (50-75) % Lymph % (Auto) (25-40) % Dickenson % (Auto) (3-14) % Eos % (Auto) (2-4) % Baso % (Auto) (0-2) % Neut # (Auto) (8683-2660) /uL Lymph # (Auto) (8671-5417) /uL Dickenson # (Auto) (0-900) /uL Eos # (Auto) (0-450) /uL Baso # (Auto) (0-100) /uL Sodium (137-145) mmol/L Potassium (3.4-5.1) mmol/L Chloride (98-107) mmol/L Carbon Dioxide (22-32) mmol/L BUN (9-20) mg/dL Creatinine (0.66-1.25) mg/dL Estimated GFR (>60) mL/min BUN/Creatinine Ratio (6-22) Glucose (80-110) mg/dL Calcium (8.4-10.2) mg/dL Phosphorus (2.3-3.7) mg/dL Magnesium (1.6-2.3) mg/dL Total Bilirubin (0.2-1.3) mg/dL AST (17-59) IU/L ALT (<50) IU/L Alkaline Phosphatase (38-126) U/L Total Creatine Kinase (55-170) U/L CK-MB (CK-2) CK-MB (CK-2) Rel Index Troponin I (0.01-0.034) ng/mL NT-Pro-B Natriuret Pep (<125) pg/mL Total Protein (6.3-8.2) g/dL Albumin (3.5-5.0) g/dL Globulin (1.7-4.1) g/dL Albumin/Globulin Ratio (1.0-2.8) Prolactin (3.7-17.9) ng/mL Urine Color Cancelled Urine Appearance Cancelled Urine pH Cancelled Ur Specific [place] Cancelled Urine Protein Cancelled Urine Glucose (UA) Cancelled Urine Ketones Cancelled Urine Occult Blood Cancelled Urine Nitrate Cancelled Urine Bilirubin Cancelled Ur Bilirubin Confirm Urine Urobilinogen Cancelled Ur Leukocyte Esterase Cancelled Urine RBC (0-5/HPF) Urine WBC (0-5/HPF) Ur Squamous Epith Cells (0-5/HPF) Calcium Oxalate Crystal Amorphous Sediment Urine Bacteria (None) Hyaline Casts (None) Urine Mucus (Negative) Ur Culture Indicated? U Opiates 300ng/mL cut (Negative) Ur Oxycodone Screen (Negative) Urine Methadone Screen (Negative) Ur Barbiturates Screen (Negative) U Tricyclic Antidepress (Negative) Ur Phencyclidine Scrn (Negative) Ur Amphetamines Screen (Negative) U Methamphetamines Scrn (Negative) Ur MDMA Scrn (Ecstasy) (Negative) U Benzodiazepines Scrn (Negative) Urine Cocaine Screen (Negative) U Marijuana (THC) Screen (Negative) Ethyl Alcohol ( - 10) mg/dL SARS-CoV-2 (PCR) Negative Negative (Negative) 11/07/20 11/07/20 11/07/20 Range/Units 18:34 18:34 18:34 WBC (4.5-11.0) X10^3/uL RBC (4.5-5.9) X10^6/uL Hgb (13.5-17.5) g/dL Hct (41-53) % MCV (80-100) fL MCH (26-34) PG MCHC (30-36) % RDW (11.6-14.8) % Plt Count (150-400) X10^3/uL Neut % (Auto) (50-75) % Lymph % (Auto) (25-40) % Dickenson % (Auto) (3-14) % Eos % (Auto) (2-4) % Baso % (Auto) (0-2) % Neut # (Auto) (2683-1258) /uL Lymph # (Auto) (0284-3039) /uL Dickenson # (Auto) (0-900) /uL Eos # (Auto) (0-450) /uL Baso # (Auto) (0-100) /uL Sodium (137-145) mmol/L Potassium (3.4-5.1) mmol/L Chloride (98-107) mmol/L Carbon Dioxide (22-32) mmol/L BUN (9-20) mg/dL Creatinine (0.66-1.25) mg/dL Estimated GFR (>60) mL/min BUN/Creatinine Ratio (6-22) Glucose (80-110) mg/dL Calcium (8.4-10.2) mg/dL Phosphorus (2.3-3.7) mg/dL Magnesium (1.6-2.3) mg/dL Total Bilirubin (0.2-1.3) mg/dL AST (17-59) IU/L ALT (<50) IU/L Alkaline Phosphatase (38-126) U/L Total Creatine Kinase (55-170) U/L CK-MB (CK-2) CK-MB (CK-2) Rel Index Troponin I (0.01-0.034) ng/mL NT-Pro-B Natriuret Pep (<125) pg/mL Total Protein (6.3-8.2) g/dL Albumin (3.5-5.0) g/dL Globulin (1.7-4.1) g/dL Albumin/Globulin Ratio (1.0-2.8) Prolactin (3.7-17.9) ng/mL Urine Color Yellow Urine Appearance Clear Urine pH 5.0 Ur Specific [place] 1.025 Urine Protein 1+ H Urine Glucose (UA) Trace H Urine Ketones Trace H Urine Occult Blood Trace-intact Urine Nitrate Negative Urine Bilirubin Negative Ur Bilirubin Confirm Cancelled Urine Urobilinogen 0.2 Ur Leukocyte Esterase Negative Urine RBC 0-1/hpf (0-5/HPF) Urine WBC 1-5/hpf (0-5/HPF) Ur Squamous Epith Cells 0-1 /hpf (0-5/HPF) Calcium Oxalate Crystal Few H Amorphous Sediment 1+ Urine Bacteria Occasional (0-1) (None) Hyaline Casts 5-10/lpf (None) Urine Mucus 1+ H (Negative) Ur Culture Indicated? Cult not indicated U Opiates 300ng/mL cut Negative (Negative) Ur Oxycodone Screen Negative (Negative) Urine Methadone Screen Negative (Negative) Ur Barbiturates Screen Negative (Negative) U Tricyclic Antidepress Negative (Negative) Ur Phencyclidine Scrn Negative (Negative) Ur Amphetamines Screen Negative (Negative) U Methamphetamines Scrn Negative (Negative) Ur MDMA Scrn (Ecstasy) Negative (Negative) U Benzodiazepines Scrn Negative (Negative) Urine Cocaine Screen Negative (Negative) U Marijuana (THC) Screen Negative (Negative) Ethyl Alcohol ( - 10) mg/dL SARS-CoV-2 (PCR) (Negative) Point of Care Testing Glucose POC 124 Urine Dip Bedside Urine Glucose Negative Bedside Urine Bilirubin + 1 Bedside Urine Ketone - Negative Urine Specific [place] 1.030 Bedside Urine Occult Blood - Negative Bedside Urine pH 6.0 Bedside Urine Protein +/- 15 Bedside Urine Urobilinogen +/- 1mg Bedside Urine Nitrite - Negative Bedside Urine Leukocytes - Negative Esterase Imaging Data CT scan - head: Radiologist's Impression: PROCEDURE:? CT HEAD/BRAIN WO CON ? INDICATIONS:? seizure ? TECHNIQUE:? Noncontrast 4.5 mm thick angled axial sections acquired from the foramen magnum to the vertex, with coronal and sagittal reformats.? For radiation dose reduction, the following was used:? automated exposure control, adjustment of mA and/or kV according to patient size.? ? COMPARISON:? [facility], CR, XR CHEST 1V, 11/07/2020, 17:01.? [facility], CT, CT HEAD/BRAIN WO CON, 05/26/2020, 21:14.? [facility], CT, CT HEAD/BRAIN WO CON, 06/19/2020, 14:56.? [facility], CT, CT HEAD/BRAIN WO CON, 09/04/2020, 17:23. ? FINDINGS:? Image quality:? Excellent.? ? CSF spaces:? Basal cisterns are patent.? No extra-axial fluid collections.? The ventricles are symmetric in size and shape.? ? Brain:? No intracranial bleeds or masses.? There is cerebral volume loss for a ge, with resultant ventricular and sulcal prominence.? There are periventricular and deep white matter chronic small vessel ischemic changes.? There is intracranial internal carotid artery atherosclerosis.? ? Skull and face:? Calvarium and visualized facial bones appear intact, without suspicious lesions.? ? Sinuses:? Visualized sinuses and mastoids are clear.? ? ? IMPRESSION:? Unremarkable intracranial study for age, without a cause of seizure identified. ? No acute intracranial hemorrhage is seen.? ? Note is made of age-appropriate brain parenchymal volume loss and chronic small vessel ischemic changes. ? ? Dictated by: Bonilla Moore M.D. on 11/07/2020 at 16:37 ? ? ECG Data Interpretation: Atrial fibrillation rate [address] changes similar to previous EKG MDM Narrative Medical decision making narrative: Is an alcoholic with dementia currently living alone. There have been questions from previous hospital stay as well as today in regards of how well he is caring for himself. Some slow today he had obvious alcohol withdrawal seizure witnessed by his brother. He remains confused about where he is and why he is here now. Head CT is negative. He is in AFib but rate is relatively controlled. He is given phenobarbital to help with withdrawal, which actually improved his heart rate. A hip is controlled. He certainly is not a candidate for anticoagulation he is a high fall risk and is non compliant. Dr. Melton, in ED to see and evaluate patient agrees admission Discharge Plan Departure Patient Disposition: Admitted As Inpatient Clinical Impression: Alcohol withdrawal seizure, Atrial fibrillation
[2020-11-07] MEDS: PHENobarbital 65 MG/ML VIAL 260 MG IV (16:48)
--- NOTE | 2020-11-07 16:52 | DI.RAD.S_ITS ---
PROCEDURE: XR CHEST 1V INDICATIONS: afib, seizure TECHNIQUE: One view of the chest was acquired. COMPARISON: [facility], CT, CT ANGIO CHEST PE PROTOCOL, 09/04/2020, 17:23. [facility], CR, XR CHEST 1V, 07/31/2020, 23:00. [facility], CR, XR CHEST 1V, 09/04/2020, 15:34. FINDINGS: Surgical changes and devices: None. Lungs and pleura: There is streaky opacity seen involving the lung bases, left worse than right. This is similar to prior studies. Low lung volumes are noted. This causes a crowded appearance to the lung markings and limits evaluation. No pleural effusions or pneumothorax. Mediastinum: The cardiac contours are within normal limits. The aorta demonstrates calcification and tortuosity. Bones and chest wall: No suspicious bony lesions. Age-appropriate bony degenerative changes are seen. Overlying soft tissues appear unremarkable. IMPRESSION: Low lung volumes with streaky opacities at the lung bases, which are most likely related to atelectasis. If clinically appropriate, a short-term followup chest series (with PA and lateral views) performed in deep inspiration is suggested for further evaluation. Dictated by: Bonilla Moore M.D. on 11/07/2020 at 16:25 Approved by: Bonilla Moore M.D. on 11/07/2020 at 16:26
--- NOTE | 2020-11-07 16:52 | DI.CT.S_ITS ---
PROCEDURE: CT HEAD/BRAIN WO CON INDICATIONS: seizure TECHNIQUE: Noncontrast 4.5 mm thick angled axial sections acquired from the foramen magnum to the vertex, with coronal and sagittal reformats. For radiation dose reduction, the following was used: automated exposure control, adjustment of mA and/or kV according to patient size. COMPARISON: [facility], CR, XR CHEST 1V, 11/07/2020, 17:01. [facility], CT, CT HEAD/BRAIN WO CON, 05/26/2020, 21:14. [facility], CT, CT HEAD/BRAIN WO CON, 06/19/2020, 14:56. [facility], CT, CT HEAD/BRAIN WO CON, 09/04/2020, 17:23. FINDINGS: Image quality: Excellent. CSF spaces: Basal cisterns are patent. No extra-axial fluid collections. The ventricles are symmetric in size and shape. Brain: No intracranial bleeds or masses. There is cerebral volume loss for age, with resultant ventricular and sulcal prominence. There are periventricular and deep white matter chronic small vessel ischemic changes. There is intracranial internal carotid artery atherosclerosis. Skull and face: Calvarium and visualized facial bones appear intact, without suspicious lesions. Sinuses: Visualized sinuses and mastoids are clear. IMPRESSION: Unremarkable intracranial study for age, without a cause of seizure identified. No acute intracranial hemorrhage is seen. Note is made of age-appropriate brain parenchymal volume loss and chronic small vessel ischemic changes. Dictated by: Bonilla Moore M.D. on 11/07/2020 at 16:37 Approved by: Bonilla Moore M.D. on 11/07/2020 at 16:38
[2020-11-07 17:05] LABS: Add Manual Diff / Slide Review NO; Basophils Absolute Auto 100 /uL (0-100); Basophils Percent Auto 1.1 % (0-2); Eosinophils Absolute Auto 100 /uL (0-450); Eosinophils Percent Auto 1.2 % (2-4); Hematocrit 35.8 % (41-53); Hemoglobin 11.8 g/dL (13.5-17.5); Lymphocytes Absolute Auto 1700 /uL (1100-4500); Lymphocytes Percent Auto 35.2 % (25-40); Mean Corpuscular Hemoglobin 35.1 PG (26-34); Mean Corpuscular Volume 106.4 fL (80-100); Monocytes Absolute Auto 700 /uL (0-900); Monocytes Percent Auto 14.6 % (3-14); Neutrophils Absolute Auto 2300 /uL (1500-7000); Neutrophils Percent Auto 47.9 % (50-75); Platelet Count 177 X10^3/uL (150-400); Red Blood Cell Count 3.36 X10^6/uL (4.5-5.9); Red Cell Distribution Width 14.2 % (11.6-14.8); White Blood Cell Count 4.8 X10^3/uL (4.5-11.0)
[2020-11-07 17:12] LABS: Alanine Aminotransferase 78 IU/L (<50); Albumin 4.3 g/dL (3.5-5.0); Albumin Globulin Ratio 1.7 (1.0-2.8); Alkaline Phosphatase 101 U/L (38-126); Aspartate Aminotransferase 92 IU/L (17-59); BUN Creatinine Ratio 13.4 (6-22); Bilirubin Total 0.5 mg/dL (0.2-1.3); Blood Urea Nitrogen 16 mg/dL (9-20); Calcium 9.1 mg/dL (8.4-10.2); Carbon Dioxide 24 mmol/L (22-32); Chloride 103 mmol/L (98-107); Creatine Kinase 56 U/L (55-170); Estimated Glomerular Filt Rate 59.8 mL/min (>60); Globulin 2.6 g/dL (1.7-4.1); Glucose 128 mg/dL (80-110); HEMOLYSIS 17 (0-50); Potassium 3.5 mmol/L (3.4-5.1); Sodium 139 mmol/L (137-145); Total Protein 6.9 g/dL (6.3-8.2)
[2020-11-07 17:12] LABS: Ethanol (ETOH) < 10 mg/dL; Magnesium 1.5 mg/dL (1.6-2.3); Phosphorous 2.9 mg/dL (2.3-3.7)
[2020-11-07 17:19] LABS: COVID19 -Nasal RAPID Negative (Negative)
[2020-11-07 17:24] LABS: NT-proBNP (BNP-Adult 18+) 497 pg/mL (<125); Troponin I < 0.012 ng/mL (0.01-0.034)
[2020-11-07 17:29] LABS: Prolactin 58.1 ng/mL (3.7-17.9)
[2020-11-07 17:56] LABS: COVID19 - ADMIT (NP swab/PCR) Negative (Negative)
--- NOTE | 2020-11-07 18:28 | P.HP_ITS ---
History of Present Illness History of Present Illness Date Patient Seen: 11/07/20 Time Patient Seen: 18:28 Chief complaint: seizure Narrative: Pt presents with seizure in setting of heavy alcohol use. Tonic Clonic seizure witnessed by brother who was visiting town in consequence to which pt evidently decreased alcohol intake to some whiskey last night, half bottle of wine today, he usually drinks more than that per pt. Prior admission in August for similar issue with new afib at that time which seems to have continued today. He is prescribed but does not take metoprolol tartrate 50 bid. Received phenobarb in ED. On interview today pt is alert and interactive but disoriented and can be confabulative, producing scant dark urine. Desires full code. Spoke with his Marya ([phone]) currently in [place] who is MDM. He also has brother in [place] ([phone]). Family is aware of situation and that placement may be necessary. Patient History Medical History (Updated 11/07/20 @ 17:55 by Dawn Paez DO) Alcohol abuse Atrial fibrillation Gout HTN (hypertension) Family & Social History Social History: household members spouse Safety & Behavioral: Feels Safe in Current Yes Environment Tobacco & Substance use: Tobacco type cigarettes Smoking Status Former smoker alcohol intake current alcohol intake frequency 3 or more drinks per day Substance Use Type does not use Meds Home Medications and Allergies Home Medications Medication Instructions Recorded Confirmed Type metoprolol tartrate 50 mg tablet 50 mg PO BID #60 tab 01/21/20 09/04/20 Rx diltiazem HCl 120 mg capsule,24 120 mg PO DAILY 09/04/20 09/04/20 History hr,extended release Allergies Allergy/AdvReac Type Severity Reaction Status Date / Time amoxicillin [AMOXICILLIN] Allergy Severe SWOLLEN JAW Verified 11/07/20 16:45 clindamycin [CLINDAMYCIN] AdvReac Severe C-DIFF Verified 11/07/20 16:45 Review of Systems Review of Systems Narrative: all systems reviewed and negative except as otherwise documented Exam Vital Signs (past 8 hours): - 11/07/20 16:37 11/07/20 16:38 11/07/20 16:45 Pulse Rate 150 H 126 H Respiratory Rate 27 H 19 Blood Pressure 157/105 H 157/105 H Pulse Oximetry 90 L 90 L 11/07/20 17:00 11/07/20 17:30 11/07/20 18:00 Pulse Rate 119 H 110 H 97 H Respiratory Rate 16 23 14 Blood Pressure Pulse Oximetry 94 98 96 Oxygen Delivery Method Nasal Cannula Oxygen Flow Rate 2 Narrative Exam Narrative: alert cl lying in padded gurney trying to urinate Const General: cooperative and in distress [facility] Head: normal to inspection, normocephalic and atraumatic Ears: hearing grossly normal bilaterally Nose: external nose normal Teeth and gingiva: fair dentition Resp Effort & Inspection: normal respiratory effort and able to speak in complete sentences Auscultation: clear to auscultation bilaterally Cardio Rate: regular rate Rhythm: abnormal rhythm irregularly irregular Heart Sounds: S1 normal and S2 normal GI Palpation: soft and No tender Neuro General: patient alert, patient awake, oriented (person place and year but not president), moves all extremities, normal light touch, pain and propioception, CN's II-XI intact bilaterally and deep tendon reflexes 2+ bilaterally Psych Other: conversant and interactive mildly disoriented poor historian confabulative Objective Labs Result Diagrams: 11/07/20 16:45 11/07/20 16:54 Labs: Laboratory Results - last 24 hr 11/07/20 11/07/20 11/07/20 16:45 16:45 16:54 WBC 4.8 RBC 3.36 L Hgb 11.8 L Hct 35.8 L MCV 106.4 H MCH 35.1 H MCHC 33.0 RDW 14.2 Plt Count 177 Neut % (Auto) 47.9 L Lymph % (Auto) 35.2 [place] % (Auto) 14.6 H Eos % (Auto) 1.2 L Baso % (Auto) 1.1 Neut # (Auto) 2300 Lymph # (Auto) 1700 [place] # (Auto) 700 Eos # (Auto) 100 Baso # (Auto) 100 Sodium 139 Potassium 3.5 Chloride 103 Carbon Dioxide 24 BUN 16 Creatinine 1.19 Estimated GFR 59.8 L BUN/Creatinine Ratio 13.4 Glucose 128 H Calcium 9.1 Phosphorus 2.9 Magnesium 1.5 L Total Bilirubin 0.5 AST 92 H ALT 78 H Alkaline Phosphatase 101 Total Creatine Kinase 56 CK-MB (CK-2) TNP CK-MB (CK-2) Rel Index TNP Troponin I < 0.012 NT-Pro-B Natriuret Pep 497 H Total Protein 6.9 Albumin 4.3 Globulin 2.6 Albumin/Globulin Ratio 1.7 Prolactin 58.1 H Ethyl Alcohol < 10 SARS-CoV-2 (PCR) 11/07/20 11/07/20 16:55 16:56 WBC RBC Hgb Hct MCV MCH MCHC RDW Plt Count Neut % (Auto) Lymph % (Auto) [place] % (Auto) Eos % (Auto) Baso % (Auto) Neut # (Auto) Lymph # (Auto) [place] # (Auto) Eos # (Auto) Baso # (Auto) Sodium Potassium Chloride Carbon Dioxide BUN Creatinine Estimated GFR BUN/Creatinine Ratio Glucose Calcium Phosphorus Magnesium Total Bilirubin AST ALT Alkaline Phosphatase Total Creatine Kinase CK-MB (CK-2) CK-MB (CK-2) Rel Index Troponin I NT-Pro-B Natriuret Pep Total Protein Albumin Globulin Albumin/Globulin Ratio Prolactin Ethyl Alcohol SARS-CoV-2 (PCR) Negative Negative Assessment & Plan Assessment & Plan narrative: #acute alcohol withdrawal #s/p seizure last serious drink about 36 hours ago, EtOH withdrawal protocol ordered prn ativan and haldol and mariusz librium he is really a heavy drinker monitor overnight in ICU nutrition consulted rally pack ordered #macrocytic anemia significantly worsened MCV compared to prior admissions rally pack ordered monitor #hypomagenesmia repleting will recheck in am #new CKD 3a #dehydration NS 125 #atrial fibrillation noted from previous admission Lovenox ordered he is not on AC at home due to fall risk resume home metoprolol 50 tartrate bid code: full MDM: Marya: [phone] DVT: lovenox diet: liquid, ADAT PCP: Axel Time Spent With Patient Critical Care time: I spent a total of [] minutes of critical care time on this patient's care today; this time is exclusive of procedural time.
[2020-11-07 18:44] LABS: Appearance Urine UA CLEAR; Bilirubin Urine UA NEGATIVE (NEGATIVE); Color Urine UA YELLOW; Glucose Urine UA TRACE g/dL (Negative); Ketones Urine UA TRACE (NEGATIVE); Leukocyte Esterase Urine UA NEGATIVE (NEGATIVE); Nitrite Urine UA NEGATIVE (Negative); Occult Blood Urine UA TRACE-INTACT (Negative); Protein Urine UA 1+ (Negative); Specific Gravity Urine UA 1.025 (1.000-1.035); Urobilinogen Urine UA 0.2 E.U./dL (0.2)
[2020-11-07 18:47] LABS: UR Morphine/Opiate cutoff 300 Negative (Negative); Ur Creatinine Normal (Normal); Ur Specific Gravity Normal (Normal); Urine Amphetamines Negative (Negative); Urine Barbiturates Negative (Negative); Urine Benzodiazepines Negative (Negative); Urine Cocaine Negative (Negative); Urine MDMA Negative (Negative); Urine Methadone Negative (Negative); Urine Methamphetamines Negative (Negative); Urine Oxycodone Negative (Negative); Urine Phencyclidine Negative (Negative); Urine Tetrahydrocannabinol Negative (Negative); Urine Tricyclic Antidepressant Negative (Negative); Urine pH Normal (Normal)
[2020-11-07 19:06] LABS: Amorphous Sediment Urine 1+; Bacteria Urine Occasional (0-1); Calcium Oxalate Crystals Urine Few; Hyaline Casts Urine 5-10/LPF; RBC Urine 0-1/HPF (0-5/HPF); Squamous Epithelial Cell Urine 0-1 /HPF (0-5/HPF); WBC Urine 1-5/HPF (0-5/HPF)
[2020-11-07 19:07] LABS: Culture Indicated Urine Cult Not Indicated; Mucus Urine 1+ (Negative)
[2020-11-07] MEDS: SODIUM CHLORIDE 0.9% 1,000 ML 125 ML IV (20:26)
[2020-11-07] MEDS: LORazepam 2 MG/ML INJ IV ×3 (20:35→21:12)
[2020-11-07] MEDS: METOPROLOL IR 50 MG TABLET PO (21:07)
--- NOTE | 2020-11-07 21:53 | PM.CN.EICU ---
History of Present Illness Consult details Chief complaint: seizure Reason for consult: TeleICU protocol Requesting provider: Wyatt Melton :: This patient was seen via real time interactive two-way audiovisual telecommunication. Narrative: 75 y.o. male admitted to ICU observation by Dr. Melton for a witnessed tonic-clonic seizure x 1 in a car; patient has a history of EtOH abuse--last drink was 36H ago. PMHx = former tobacco; AF and dementia. Patient is a poor informant. [facility] Medical History (Updated 11/07/20 @ 22:03 by Collins Bravo MD) Alcohol abuse Atrial fibrillation Gout HTN (hypertension) Social History marital status: household members: spouse occupational status: previously employed Smoking Status: Former smoker alcohol intake: current substance use type: does not use Current Medications Current Medications Medications: Home Medications metoprolol tartrate 50 mg tablet 50 mg PO BID #60 tab 01/21/20 [Rx Confirmed 11/07/20] diltiazem HCl 120 mg capsule,24 hr,extended release 120 mg PO DAILY 09/04/20 [History Confirmed 09/04/20] Visit Medications (administered) Generic Name Dose Route Start Last Admin Trade Name Freq PRN Reason Stop Dose Admin Sodium Chloride 1,000 mls @ 125 mls/hr 11/07/20 18:45 11/07/20 20:26 Normal Saline 0.9% IV 125 mls/hr CONT MIKEL Administration Magnesium Sulfate 2 gm/ Folic 1,015.2 mls @ 125 mls/hr 11/07/20 18:38 11/07/20 21:42 Acid 1 mg/ Thiamine HCl 100 mg IV 11/08/20 02:45 Not Given / Multivitamins 10 ml/ Sodium NOW ONE Chloride Lorazepam 2 mg 11/07/20 19:37 11/07/20 21:12 Lorazepam 2 Mg/Ml Inj IV 2 mg Q15MIN PRN Administration Alcohol Withdrawal Metoprolol Tartrate 50 mg 11/07/20 21:00 11/07/20 21:07 Metoprolol Ir 50 Mg Tablet PO 50 mg BID MIKEL Administration Review of Systems Cardiovascular Comments: no CP Respiratory Comments: no SOB Gastrointestinal Comments: no abdominal pain Exam Vital Signs (past 8 hours): - 11/07/20 16:37 11/07/20 16:38 11/07/20 16:45 Temperature Pulse Rate 150 H 126 H Respiratory Rate 27 H 19 Blood Pressure 157/105 H 157/105 H Pulse Oximetry 90 L 90 L 11/07/20 17:00 11/07/20 17:30 11/07/20 18:00 Temperature Pulse Rate 119 H 110 H 97 H Respiratory Rate 16 23 14 Blood Pressure Pulse Oximetry 94 98 96 11/07/20 19:49 11/07/20 21:07 11/07/20 21:09 Temperature 98.4 F Pulse Rate 88 99 H 101 H Respiratory Rate 21 30 H 32 H Blood Pressure 151/79 H 151/79 H 151/79 H Pulse Oximetry 92 11/07/20 21:31 Temperature Pulse Rate 91 H Respiratory Rate 18 Blood Pressure 151/79 H Pulse Oximetry Oxygen Delivery Method Nasal Cannula Oxygen Flow Rate 0 Objective Labs Result Diagrams: 11/07/20 16:45 11/07/20 16:54 Labs: Laboratory Results - last 24 hr 11/07/20 11/07/20 11/07/20 16:45 16:45 16:54 WBC 4.8 RBC 3.36 L Hgb 11.8 L Hct 35.8 L MCV 106.4 H MCH 35.1 H MCHC 33.0 RDW 14.2 Plt Count 177 Neut % (Auto) 47.9 L Lymph % (Auto) 35.2 [place] % (Auto) 14.6 H Eos % (Auto) 1.2 L Baso % (Auto) 1.1 Neut # (Auto) 2300 Lymph # (Auto) 1700 [place] # (Auto) 700 Eos # (Auto) 100 Baso # (Auto) 100 Sodium 139 Potassium 3.5 Chloride 103 Carbon Dioxide 24 BUN 16 Creatinine 1.19 Estimated GFR 59.8 L BUN/Creatinine Ratio 13.4 Glucose 128 H Calcium 9.1 Phosphorus 2.9 Magnesium 1.5 L Total Bilirubin 0.5 AST 92 H ALT 78 H Alkaline Phosphatase 101 Total Creatine Kinase 56 CK-MB (CK-2) TNP CK-MB (CK-2) Rel Index TNP Troponin I < 0.012 NT-Pro-B Natriuret Pep 497 H Total Protein 6.9 Albumin 4.3 Globulin 2.6 Albumin/Globulin Ratio 1.7 Prolactin 58.1 H Urine Color Urine Appearance Urine pH Ur Specific [place] Urine Protein Urine Glucose (UA) Urine Ketones Urine Occult Blood Urine Nitrate Urine Bilirubin Ur Bilirubin Confirm Urine Urobilinogen Ur Leukocyte Esterase Urine RBC Urine WBC Ur Squamous Epith Cells Calcium Oxalate Crystal Amorphous Sediment Urine Bacteria Hyaline Casts Urine Mucus Ur Culture Indicated? Nasal Screen MRSA (PCR) U Opiates 300ng/mL cut Ur Oxycodone Screen Urine Methadone Screen Ur Barbiturates Screen U Tricyclic Antidepress Ur Phencyclidine Scrn Ur Amphetamines Screen U Methamphetamines Scrn Ur MDMA Scrn (Ecstasy) U Benzodiazepines Scrn Urine Cocaine Screen U Marijuana (THC) Screen Ethyl Alcohol < 10 SARS-CoV-2 (PCR) 11/07/20 11/07/20 11/07/20 16:55 16:56 18:32 WBC RBC Hgb Hct MCV MCH MCHC RDW Plt Count Neut % (Auto) Lymph % (Auto) [place] % (Auto) Eos % (Auto) Baso % (Auto) Neut # (Auto) Lymph # (Auto) [place] # (Auto) Eos # (Auto) Baso # (Auto) Sodium Potassium Chloride Carbon Dioxide BUN Creatinine Estimated GFR BUN/Creatinine Ratio Glucose Calcium Phosphorus Magnesium Total Bilirubin AST ALT Alkaline Phosphatase Total Creatine Kinase CK-MB (CK-2) CK-MB (CK-2) Rel Index Troponin I NT-Pro-B Natriuret Pep Total Protein Albumin Globulin Albumin/Globulin Ratio Prolactin Urine Color Cancelled Urine Appearance Cancelled Urine pH Cancelled Ur Specific [place] Cancelled Urine Protein Cancelled Urine Glucose (UA) Cancelled Urine Ketones Cancelled Urine Occult Blood Cancelled Urine Nitrate Cancelled Urine Bilirubin Cancelled Ur Bilirubin Confirm Urine Urobilinogen Cancelled Ur Leukocyte Esterase Cancelled Urine RBC Urine WBC Ur Squamous Epith Cells Calcium Oxalate Crystal Amorphous Sediment Urine Bacteria Hyaline Casts Urine Mucus Ur Culture Indicated? Nasal Screen MRSA (PCR) U Opiates 300ng/mL cut Ur Oxycodone Screen Urine Methadone Screen Ur Barbiturates Screen U Tricyclic Antidepress Ur Phencyclidine Scrn Ur Amphetamines Screen U Methamphetamines Scrn Ur MDMA Scrn (Ecstasy) U Benzodiazepines Scrn Urine Cocaine Screen U Marijuana (THC) Screen Ethyl Alcohol SARS-CoV-2 (PCR) Negative Negative 11/07/20 11/07/20 11/07/20 18:34 18:34 18:34 WBC RBC Hgb Hct MCV MCH MCHC RDW Plt Count Neut % (Auto) Lymph % (Auto) [place] % (Auto) Eos % (Auto) Baso % (Auto) Neut # (Auto) Lymph # (Auto) [place] # (Auto) Eos # (Auto) Baso # (Auto) Sodium Potassium Chloride Carbon Dioxide BUN Creatinine Estimated GFR BUN/Creatinine Ratio Glucose Calcium Phosphorus Magnesium Total Bilirubin AST ALT Alkaline Phosphatase Total Creatine Kinase CK-MB (CK-2) CK-MB (CK-2) Rel Index Troponin I NT-Pro-B Natriuret Pep Total Protein Albumin Globulin Albumin/Globulin Ratio Prolactin Urine Color Yellow Urine Appearance Clear Urine pH 5.0 Ur Specific [place] 1.025 Urine Protein 1+ H Urine Glucose (UA) Trace H Urine Ketones Trace H Urine Occult Blood Trace-intact Urine Nitrate Negative Urine Bilirubin Negative Ur Bilirubin Confirm Cancelled Urine Urobilinogen 0.2 Ur Leukocyte Esterase Negative Urine RBC 0-1/hpf Urine WBC 1-5/hpf Ur Squamous Epith Cells 0-1 /hpf Calcium Oxalate Crystal Few H Amorphous Sediment 1+ Urine Bacteria Occasional (0-1) Hyaline Casts 5-10/lpf Urine Mucus 1+ H Ur Culture Indicated? Cult not indicated Nasal Screen MRSA (PCR) U Opiates 300ng/mL cut Negative Ur Oxycodone Screen Negative Urine Methadone Screen Negative Ur Barbiturates Screen Negative U Tricyclic Antidepress Negative Ur Phencyclidine Scrn Negative Ur Amphetamines Screen Negative U Methamphetamines Scrn Negative Ur MDMA Scrn (Ecstasy) Negative U Benzodiazepines Scrn Negative Urine Cocaine Screen Negative U Marijuana (THC) Screen Negative Ethyl Alcohol SARS-CoV-2 (PCR) 11/07/20 19:55 WBC RBC Hgb Hct MCV MCH MCHC RDW Plt Count Neut % (Auto) Lymph % (Auto) [place] % (Auto) Eos % (Auto) Baso % (Auto) Neut # (Auto) Lymph # (Auto) [place] # (Auto) Eos # (Auto) Baso # (Auto) Sodium Potassium Chloride Carbon Dioxide BUN Creatinine Estimated GFR BUN/Creatinine Ratio Glucose Calcium Phosphorus Magnesium Total Bilirubin AST ALT Alkaline Phosphatase Total Creatine Kinase CK-MB (CK-2) CK-MB (CK-2) Rel Index Troponin I NT-Pro-B Natriuret Pep Total Protein Albumin Globulin Albumin/Globulin Ratio Prolactin Urine Color Urine Appearance Urine pH Ur Specific [place] Urine Protein Urine Glucose (UA) Urine Ketones Urine Occult Blood Urine Nitrate Urine Bilirubin Ur Bilirubin Confirm Urine Urobilinogen Ur Leukocyte Esterase Urine RBC Urine WBC Ur Squamous Epith Cells Calcium Oxalate Crystal Amorphous Sediment Urine Bacteria Hyaline Casts Urine Mucus Ur Culture Indicated? Nasal Screen MRSA (PCR) Negative for mrsa U Opiates 300ng/mL cut Ur Oxycodone Screen Urine Methadone Screen Ur Barbiturates Screen U Tricyclic Antidepress Ur Phencyclidine Scrn Ur Amphetamines Screen U Methamphetamines Scrn Ur MDMA Scrn (Ecstasy) U Benzodiazepines Scrn Urine Cocaine Screen U Marijuana (THC) Screen Ethyl Alcohol SARS-CoV-2 (PCR) Assessment & Plan Assessment and plan (1) Alcohol withdrawal seizure: Status: Acute Plan: -Continue banana bag -Continue PRN benzodiazepines; one dose phenobarbital given in ED noted -Cessation counseling if patient amenable (2) Atrial fibrillation: Status: Acute Plan: -Continue metoprolol -Not an anticoagulation candidate given dementia/fall risk (3) Macrocytosis: Status: Acute Plan: -Continue folate -Consider checking folate, vitamin B12, thyroid function test (4) Creatinine elevation: Status: Acute Plan: -Probably due to dehydration; continue IVF Time Spent With Patient Critical Care time: I spent a total of [] minutes of critical care time on this patient's care today; this time is exclusive of procedural time.
--- NOTE | 2020-11-07 22:01 | PC.ADMIT ---
[email or web address] Admission Note: A/Ox2 pt arrived via gurney from ED, assisted to bed, connected to monitoring equipment, assisted into gown, oriented to room and call light system. Seizure pads in place per [facility]WA protocol. ICU tele-med Dr contacted, report given. Bed low and locked, alarm on, call light within reach, will continue to monitor. The patient,Master Porter,75 y/o, was given written information regarding hospital policies, unit procedures and contact persons. Patient's smoking status: Former smoker. Vital Signs - 8 hr 11/07/20 16:37 11/07/20 16:38 11/07/20 16:45 Temperature Pulse Rate 150 H 126 H Respiratory Rate 27 H 19 Blood Pressure 157/105 H 157/105 H Pulse Oximetry 90 L 90 L 11/07/20 17:00 11/07/20 17:30 11/07/20 18:00 Temperature Pulse Rate 119 H 110 H 97 H Respiratory Rate 16 23 14 Blood Pressure Pulse Oximetry 94 98 96 11/07/20 19:49 11/07/20 21:07 11/07/20 21:09 Temperature 98.4 F Pulse Rate 88 99 H 101 H Respiratory Rate 21 30 H 32 H Blood Pressure 151/79 H 151/79 H 151/79 H Pulse Oximetry 92 11/07/20 21:31 Temperature Pulse Rate 91 H Respiratory Rate 18 Blood Pressure 151/79 H Pulse Oximetry
[2020-11-07] MEDS: MAGNESIUM SULFATE 2 GM/50 ML PIGGYBACK IV (22:20)
[2020-11-08] VITALS (11 sets, daily range): BP systolic 122–160; BP diastolic 76–98; PULSE 69–91; RESP 12–22; TEMP 36.2–36.9; O2SAT 91–99
[2020-11-08 04:14] LABS: Add Manual Diff / Slide Review NO; Basophils Absolute Auto 100 /uL (0-100); Basophils Percent Auto 1.1 % (0-2); Eosinophils Absolute Auto 0 /uL (0-450); Eosinophils Percent Auto 0.8 % (2-4); Hematocrit 32.2 % (41-53); Lymphocytes Absolute Auto 800 /uL (1100-4500); Lymphocytes Percent Auto 16.6 % (25-40); Mean Corpuscular HGB Conc 34.1 % (30-36); Mean Corpuscular Hemoglobin 35.9 PG (26-34); Mean Corpuscular Volume 105.3 fL (80-100); Monocytes Absolute Auto 600 /uL (0-900); Monocytes Percent Auto 11.3 % (3-14); Neutrophils Absolute Auto 3500 /uL (1500-7000); Neutrophils Percent Auto 70.2 % (50-75); Platelet Count 135 X10^3/uL (150-400); Red Blood Cell Count 3.06 X10^6/uL (4.5-5.9); Red Cell Distribution Width 14.2 % (11.6-14.8)
[2020-11-08 04:21] LABS: Alanine Aminotransferase 61 IU/L (<50); Albumin 3.3 g/dL (3.5-5.0); Albumin Globulin Ratio 1.4 (1.0-2.8); Alkaline Phosphatase 79 U/L (38-126); Aspartate Aminotransferase 58 IU/L (17-59); BUN Creatinine Ratio 18.7 (6-22); Bilirubin Total 0.7 mg/dL (0.2-1.3); Blood Urea Nitrogen 14 mg/dL (9-20); Calcium 8.2 mg/dL (8.4-10.2); Carbon Dioxide 30 mmol/L (22-32); Chloride 106 mmol/L (98-107); Estimated Glomerular Filt Rate > 60.0 mL/min (>60); Globulin 2.4 g/dL (1.7-4.1); Glucose 102 mg/dL (80-110); HEMOLYSIS 17 (0-50); Magnesium 1.8 mg/dL (1.6-2.3); Potassium 3.6 mmol/L (3.4-5.1); Sodium 138 mmol/L (137-145); Total Protein 5.7 g/dL (6.3-8.2)
[2020-11-08] MEDS: SODIUM CHLORIDE 0.9% 1,000 ML 125 ML IV (04:33)
[2020-11-08] MEDS: diazePAM 10 MG/2 ML SYRINGE 5 MG IV (08:37)
--- NOTE | 2020-11-08 08:47 | P.PN_ITS ---
Subjective Subjective Date Patient Seen: 11/08/20 Time Patient Seen: 08:00 Interval history: Pt did ok overnight did need some PRN benzos but improved by morning. Exam Vital Signs (past 8 hours): - 11/08/20 04:03 11/08/20 07:15 Temperature 97.1 F L Pulse Rate 76 75 Respiratory Rate 16 Blood Pressure 140/89 Pulse Oximetry 97 96 Oxygen Delivery Method Room Air Oxygen Flow Rate 0 Narrative Exam Narrative: sleeping in bed with seizure precautions up Const General: cooperative and anxious [facility] Head: normocephalic and atraumatic Eyes General: appearance normal, both eyes and all related structures Cardio Rate: regular rate Rhythm: abnormal rhythm irregularly irregular Heart Sounds: S1 normal and S2 normal GI Palpation: soft and No tender Auscultation: normal bowel sounds Neuro General: patient alert, patient awake, patient oriented x3, oriented (year location and president) and moves all extremities Psych Other: sleepy but coherent Objective Labs Result Diagrams: 11/08/20 04:05 11/08/20 04:05 Labs: Laboratory Results - last 24 hr 11/07/20 11/07/20 11/07/20 16:45 16:45 16:54 WBC 4.8 RBC 3.36 L Hgb 11.8 L Hct 35.8 L MCV 106.4 H MCH 35.1 H MCHC 33.0 RDW 14.2 Plt Count 177 Neut % (Auto) 47.9 L Lymph % (Auto) 35.2 [place] % (Auto) 14.6 H Eos % (Auto) 1.2 L Baso % (Auto) 1.1 Neut # (Auto) 2300 Lymph # (Auto) 1700 [place] # (Auto) 700 Eos # (Auto) 100 Baso # (Auto) 100 Sodium 139 Potassium 3.5 Chloride 103 Carbon Dioxide 24 BUN 16 Creatinine 1.19 Estimated GFR 59.8 L BUN/Creatinine Ratio 13.4 Glucose 128 H Calcium 9.1 Phosphorus 2.9 Magnesium 1.5 L Total Bilirubin 0.5 AST 92 H ALT 78 H Alkaline Phosphatase 101 Total Creatine Kinase 56 CK-MB (CK-2) TNP CK-MB (CK-2) Rel Index TNP Troponin I < 0.012 NT-Pro-B Natriuret Pep 497 H Total Protein 6.9 Albumin 4.3 Globulin 2.6 Albumin/Globulin Ratio 1.7 Prolactin 58.1 H Urine Color Urine Appearance Urine pH Ur Specific [place] Urine Protein Urine Glucose (UA) Urine Ketones Urine Occult Blood Urine Nitrate Urine Bilirubin Ur Bilirubin Confirm Urine Urobilinogen Ur Leukocyte Esterase Urine RBC Urine WBC Ur Squamous Epith Cells Calcium Oxalate Crystal Amorphous Sediment Urine Bacteria Hyaline Casts Urine Mucus Ur Culture Indicated? Nasal Screen MRSA (PCR) U Opiates 300ng/mL cut Ur Oxycodone Screen Urine Methadone Screen Ur Barbiturates Screen U Tricyclic Antidepress Ur Phencyclidine Scrn Ur Amphetamines Screen U Methamphetamines Scrn Ur MDMA Scrn (Ecstasy) U Benzodiazepines Scrn Urine Cocaine Screen U Marijuana (THC) Screen Ethyl Alcohol < 10 SARS-CoV-2 (PCR) 11/07/20 11/07/20 11/07/20 16:55 16:56 18:32 WBC RBC Hgb Hct MCV MCH MCHC RDW Plt Count Neut % (Auto) Lymph % (Auto) [place] % (Auto) Eos % (Auto) Baso % (Auto) Neut # (Auto) Lymph # (Auto) [place] # (Auto) Eos # (Auto) Baso # (Auto) Sodium Potassium Chloride Carbon Dioxide BUN Creatinine Estimated GFR BUN/Creatinine Ratio Glucose Calcium Phosphorus Magnesium Total Bilirubin AST ALT Alkaline Phosphatase Total Creatine Kinase CK-MB (CK-2) CK-MB (CK-2) Rel Index Troponin I NT-Pro-B Natriuret Pep Total Protein Albumin Globulin Albumin/Globulin Ratio Prolactin Urine Color Cancelled Urine Appearance Cancelled Urine pH Cancelled Ur Specific [place] Cancelled Urine Protein Cancelled Urine Glucose (UA) Cancelled Urine Ketones Cancelled Urine Occult Blood Cancelled Urine Nitrate Cancelled Urine Bilirubin Cancelled Ur Bilirubin Confirm Urine Urobilinogen Cancelled Ur Leukocyte Esterase Cancelled Urine RBC Urine WBC Ur Squamous Epith Cells Calcium Oxalate Crystal Amorphous Sediment Urine Bacteria Hyaline Casts Urine Mucus Ur Culture Indicated? Nasal Screen MRSA (PCR) U Opiates 300ng/mL cut Ur Oxycodone Screen Urine Methadone Screen Ur Barbiturates Screen U Tricyclic Antidepress Ur Phencyclidine Scrn Ur Amphetamines Screen U Methamphetamines Scrn Ur MDMA Scrn (Ecstasy) U Benzodiazepines Scrn Urine Cocaine Screen U Marijuana (THC) Screen Ethyl Alcohol SARS-CoV-2 (PCR) Negative Negative 11/07/20 11/07/20 11/07/20 18:34 18:34 18:34 WBC RBC Hgb Hct MCV MCH MCHC RDW Plt Count Neut % (Auto) Lymph % (Auto) [place] % (Auto) Eos % (Auto) Baso % (Auto) Neut # (Auto) Lymph # (Auto) [place] # (Auto) Eos # (Auto) Baso # (Auto) Sodium Potassium Chloride Carbon Dioxide BUN Creatinine Estimated GFR BUN/Creatinine Ratio Glucose Calcium Phosphorus Magnesium Total Bilirubin AST ALT Alkaline Phosphatase Total Creatine Kinase CK-MB (CK-2) CK-MB (CK-2) Rel Index Troponin I NT-Pro-B Natriuret Pep Total Protein Albumin Globulin Albumin/Globulin Ratio Prolactin Urine Color Yellow Urine Appearance Clear Urine pH 5.0 Ur Specific [place] 1.025 Urine Protein 1+ H Urine Glucose (UA) Trace H Urine Ketones Trace H Urine Occult Blood Trace-intact Urine Nitrate Negative Urine Bilirubin Negative Ur Bilirubin Confirm Cancelled Urine Urobilinogen 0.2 Ur Leukocyte Esterase Negative Urine RBC 0-1/hpf Urine WBC 1-5/hpf Ur Squamous Epith Cells 0-1 /hpf Calcium Oxalate Crystal Few H Amorphous Sediment 1+ Urine Bacteria Occasional (0-1) Hyaline Casts 5-10/lpf Urine Mucus 1+ H Ur Culture Indicated? Cult not indicated Nasal Screen MRSA (PCR) U Opiates 300ng/mL cut Negative Ur Oxycodone Screen Negative Urine Methadone Screen Negative Ur Barbiturates Screen Negative U Tricyclic Antidepress Negative Ur Phencyclidine Scrn Negative Ur Amphetamines Screen Negative U Methamphetamines Scrn Negative Ur MDMA Scrn (Ecstasy) Negative U Benzodiazepines Scrn Negative Urine Cocaine Screen Negative U Marijuana (THC) Screen Negative Ethyl Alcohol SARS-CoV-2 (PCR) 11/07/20 11/08/20 11/08/20 19:55 04:05 04:05 WBC 5.0 RBC 3.06 L Hgb 11.0 L Hct 32.2 L MCV 105.3 H MCH 35.9 H MCHC 34.1 RDW 14.2 Plt Count 135 L Neut % (Auto) 70.2 D Lymph % (Auto) 16.6 L [place] % (Auto) 11.3 Eos % (Auto) 0.8 L Baso % (Auto) 1.1 Neut # (Auto) 3500 Lymph # (Auto) 800 L [place] # (Auto) 600 Eos # (Auto) 0 Baso # (Auto) 100 Sodium 138 Potassium 3.6 Chloride 106 Carbon Dioxide 30 BUN 14 Creatinine 0.75 Estimated GFR > 60.0 BUN/Creatinine Ratio 18.7 Glucose 102 Calcium 8.2 L Phosphorus Magnesium 1.8 Total Bilirubin 0.7 AST 58 ALT 61 H Alkaline Phosphatase 79 Total Creatine Kinase CK-MB (CK-2) CK-MB (CK-2) Rel Index Troponin I NT-Pro-B Natriuret Pep Total Protein 5.7 L Albumin 3.3 L Globulin 2.4 Albumin/Globulin Ratio 1.4 Prolactin Urine Color Urine Appearance Urine pH Ur Specific [place] Urine Protein Urine Glucose (UA) Urine Ketones Urine Occult Blood Urine Nitrate Urine Bilirubin Ur Bilirubin Confirm Urine Urobilinogen Ur Leukocyte Esterase Urine RBC Urine WBC Ur Squamous Epith Cells Calcium Oxalate Crystal Amorphous Sediment Urine Bacteria Hyaline Casts Urine Mucus Ur Culture Indicated? Nasal Screen MRSA (PCR) Negative for mrsa U Opiates 300ng/mL cut Ur Oxycodone Screen Urine Methadone Screen Ur Barbiturates Screen U Tricyclic Antidepress Ur Phencyclidine Scrn Ur Amphetamines Screen U Methamphetamines Scrn Ur MDMA Scrn (Ecstasy) U Benzodiazepines Scrn Urine Cocaine Screen U Marijuana (THC) Screen Ethyl Alcohol SARS-CoV-2 (PCR) [facility] Medical History (Updated 11/07/20 @ 22:03 by Collins Bravo MD) Alcohol abuse Atrial fibrillation Gout HTN (hypertension) Social History marital status: household members: spouse occupational status: previously employed Smoking Status: Former smoker alcohol intake: current substance use type: does not use Assessment & Plan Assessment & Plan narrative: #acute alcohol withdrawal #s/p seizure last serious drink about 48 hours ago, EtOH withdrawal protocol onboard, appreciate Tele-ICU input ?prn ativan and haldol and mariusz valium doing better this morning may be suitable for floor if 12 hours without needing PRNs. nutrition consulted rally pack ordered CM looking into detox options if patient is interested. Spoke with this morning she relates that he may have increasing dementia component in mental status and home alone may not be safe environment for him. She would be interested in exploring possible NH options. She is in [place] with ten day old grandbaby currently. #macrocytic anemia significantly worsened MCV compared to prior admissions rally pack ordered, oral folate and thiamine #hypomagenesmia improved s/p repletion monitor #new CKD 3a #dehydration resolved/ing with NS 125 transition to PO today #atrial fibrillation noted from previous admission Lovenox ordered he is not on AC at home due to fall risk home metoprolol 50 tartrate bid code: full MDM: Marya: [phone] DVT: lovenox diet: liquid, ADAT PCP: Axel Time Spent With Patient Critical Care time: I spent a total of [] minutes of critical care time on this patient's care today; this time is exclusive of procedural time.
[2020-11-08] MEDS: THIAMINE 100 MG TABLET PO (11:22)
[2020-11-08] MEDS: FOLIC ACID 1 MG TABLET PO (11:22)
[2020-11-08] MEDS: METOPROLOL IR 50 MG TABLET PO ×2 (11:22→20:17)
[2020-11-08] MEDS: MULTIVITAMIN 1 TABLET 1 TAB PO (11:22)
[2020-11-08] MEDS: SODIUM CHLORIDE 0.9% FLUSH 10 ML IV ×2 (13:06→20:28)
[2020-11-08] MEDS: ENOXAPARIN 40 MG/0.4 ML SYRINGE SUBCUT (13:06)
[2020-11-08] MEDS: LORazepam 2 MG/ML INJ IV ×3 (14:57→23:54)
--- NOTE | 2020-11-08 15:00 | PC.NURSE ---
AM shift Pt is with increased confusion, increased CIWA 10, 8. Medicated with Valium and Ativan this shift. ICU status addressed with Dr Landaverde, will readdress later today . Unable to stand early in shift. At end of shift, asking to get up OOB, reoriented to needing 2PA to get OOB, forgetful and impulsive BA active. PIV x2. Call light in reach and seizure pads in place.
--- NOTE | 2020-11-08 15:36 | PC.NURSE ---
Addendum entered by Mary Rubin R.N. 11/08/20 23:27: Pt restless, and attempting out of bed. Forgetful. Reoriented multiple times by staff. CIWA 1,4,3 this shift. Prn ativan administered for restlessness. Bed alarm set. Offered toileting, food, fluids, blankets. Addendum entered by Mary Rubin R.N. 11/08/20 19:18: Pt becoming more restless and agitated. Dr. Melton in house and observes this in patient firsthand. Orders to discontinue iv fluids, heating repair technician and pt was assisted up into chair to treat c/o back pain. Multiple staff members to transfer pt to chair. Chair alarm in place. Dr. Melton adding orders to treat pt's withdrawal and restlessness. Addendum entered by Mary Rubin R.N. 11/08/20 18:59: Easily reoriented but exhibits some confusion to place and situation. Attempting out of bed, but easily redirected. Denies pain, headache, nausea. No tremors noted. Up to commode with staff members x 2 and returned to bed after attempting bowel movement. Does c/o back pain and does have large purple bruise to flank. Warm blanket to back with repositioning onto side and pillows to support. Original Note: Pt has legs nearly out of bed and states needs to go. Informed pt has suffered a seizure prior to admission and has been medicated and with this in mind staff prefers pt to remain in bed @ this time. Urinal is at bedside and per report pt independent in use. Seizure pads are in place. Pt CIWA of 1 due increased activity as moving legs towards out of bed. Pt was repositioned and reassured and accepts explanations. Appropriately oriented and cooperative. Relaxed and able to close eyes for gently sleep prior to this process description writer leaving pt's room. Tele in place. BL sc'ds in place. Bed alarm in place.
[2020-11-08] MEDS: ACETAMINOPHEN 325 MG TABLET PO (20:17)
[2020-11-08] MEDS: MAGNESIUM HYDROXIDE 30 ML UDC PO (20:17)
[2020-11-08] MEDS: chlordiazePOXIDE 10 MG CAPSULE 20 MG PO (20:17)
[2020-11-09] VITALS (11 sets, daily range): BP systolic 138–161; BP diastolic 54–106; PULSE 63–89; RESP 12–18; TEMP 35.9–36.9; O2SAT 92–98; BMI 23.4
--- NOTE | 2020-11-09 02:09 | PC.NURSE ---
Pt answers the orientation questions well, date was off by two days, however he continues to be forgetful and delusional. He requested a sandwich and then called to say he was had a piece of gristle and handed over a well chewed telemetry sticker. Pt has had several loose stools both continent and incontinent. His last CIWA = 13 for confusion and tremors. Able to sleep for brief periods of time. Impulsive. LS clear, RA, and VSS.
--- NOTE | 2020-11-09 02:26 | PC.NURSE ---
Pt pulled out his AC IV. He was scratching the site.
[2020-11-09] MEDS: LORazepam 2 MG/ML INJ IV ×5 (05:00→21:16)
[2020-11-09] MEDS: HALOPERIDOL 5 MG/ML VIAL 2 MG IV ×2 (05:02→21:42)
--- NOTE | 2020-11-09 05:13 | PC.NURSE ---
At approx 0500 patient woke up and was determined to find a bathroom. He refused the BSC and was unsteady on his feet. He became belligerent and uncooperative. He was not redirect-able. He then became aggressive and threatening and was given 2 mg lorazepam and 2 mg Haldol both IVP. He was seeing someone and calling out their name. It took 4 staff to get him back into bed. The patient did not fall.
[2020-11-09] MEDS: INFLUENZA HD VACCINE 0.7 ML SYRINGE IM (06:00)
[2020-11-09] MEDS: diazePAM 10 MG/2 ML SYRINGE 5 MG IV ×2 (06:10→22:25)
--- NOTE | 2020-11-09 06:57 | PC.NURSE ---
Mil Preciado called at 0650. Stated that he is patient's [id number]. Could not confirm in chart. No information given.
--- NOTE | 2020-11-09 08:36 | P.DS_ITS ---
History of Present Illness History of Present Illness Date Patient Seen: 11/09/20 Time Patient Seen: 08:37 Chief complaint: seizure Narrative: Pt presents with seizure in setting of heavy alcohol use. Tonic Clonic seizure witnessed by brother who was visiting town in consequence to which pt evidently decreased alcohol intake to some whiskey last night, half bottle of wine today, he usually drinks more than that per pt. Prior admission in August for similar issue with new afib at that time which seems to have continued today. He is prescribed but does not take metoprolol tartrate 50 bid. Received phenobarb in ED. On interview today pt is alert and interactive but disoriented and can be confabulative, producing scant dark urine. Desires full code. Spoke with his Marya ([phone]) currently in [place] who is MDM. He also has brother in [place] ([phone]). Family is aware of situation. Discharge Providers Provider Date of admission: 11/08/20 09:14 Primary care physician: Cris Reyna MD Consults: 11/07/20 18:38 Consult to Dietitian, Adult Routine Comment: Reason For Exam: suspect malnutrition Discharge provider: Wyatt Melton MD Exam Vital Signs (past 8 hours): - 11/09/20 00:52 11/09/20 05:53 11/09/20 07:22 Temperature 97.1 F L Pulse Rate 84 88 88 Respiratory Rate 18 18 18 Blood Pressure 138/54 L 161/97 H Pulse Oximetry 92 Oxygen Delivery Method Room Air Oxygen Flow Rate 0 Objective Labs Result Diagrams: 11/08/20 04:05 11/08/20 04:05 [facility] Medical History (Updated 11/07/20 @ 22:03 by Collins Bravo MD) Alcohol abuse Atrial fibrillation Gout HTN (hypertension) Social History marital status: household members: spouse occupational status: previously employed Smoking Status: Former smoker alcohol intake: current substance use type: does not use Discharge Plan Discharge orders & Medications Prescriptions: No Action metoprolol tartrate 50 mg tablet 50 mg PO BID Qty: 60 RF: 0 diltiazem HCl 120 mg capsule,extended release 24 hr 120 mg PO DAILY RF: 0 Follow up/Referrals: Cris Reyna MD [Primary Care Provider] - Discharge Data Primary Care Provider: Cris Reyna
--- NOTE | 2020-11-09 08:42 | PM.PN.1 ---
Subjective Subjective Date Patient Seen: 11/09/20 Time Patient Seen: 08:42 Interval history: Pt disoriented this morning after requiring haldol and benzos for agitation around 0500. He is trying to eat breakfast this morning. now 48 hrs since last drink. Exam Vital Signs (past 8 hours): - 11/09/20 00:52 11/09/20 05:53 11/09/20 07:22 Temperature 97.1 F L Pulse Rate 84 88 88 Respiratory Rate 18 18 18 Blood Pressure 138/54 L 161/97 H Pulse Oximetry 92 Oxygen Delivery Method Room Air Oxygen Flow Rate 0 Narrative Exam Narrative: elder in bed wearing diaper Resp Other: moving air ok bilaterally Cardio Other: regular rate irregularly irregular rhythm GI Other: NBS NTND Neuro Other: moving all extremities Psych Appearance: disheveled Speech and Movement: slurred speech Objective Labs Result Diagrams: 11/08/20 04:05 11/08/20 04:05 [facility] Medical History (Updated 11/07/20 @ 22:03 by Collins Bravo MD) Alcohol abuse Atrial fibrillation Gout HTN (hypertension) Social History marital status: household members: spouse occupational status: previously employed Smoking Status: Former smoker alcohol intake: current substance use type: does not use Assessment & Plan Assessment & Plan narrative: #acute alcohol withdrawal #s/p seizure last serious drink about 60 hours ago, EtOH withdrawal protocol, still scoring high CIWAs ?prn ativan and haldol and mariusz valium nutrition consulted rally pack ordered Does not desire placement. CM exploring options. #macrocytic anemia significantly worsened MCV compared to prior admissions rally pack ordered, oral folate and thiamine continue #hypomagenesmia improved s/p repletion monitor #new CKD 3a #dehydration resolved/ing with NS 125 transition to PO today #atrial fibrillation noted from previous admission Lovenox ordered he is not on AC at home due to fall risk home metoprolol 50 tartrate bid dispo: CM exploring discharge options for HH, meals on wheels etc. code: full MDM: Marya: [phone] DVT: lovenox diet: liquid, ADAT PCP: Axel Time Spent With Patient Critical Care time: I spent a total of [] minutes of critical care time on this patient's care today; this time is exclusive of procedural time.
--- NOTE | 2020-11-09 09:01 | PC.NURSE ---
Day shift: Pt refused all AM meds. Explained to Pt the importance of these meds and asked if he was sure he didn't want them and he said I'm sure I don't want them. Pt tired and not opening eyes but talking and he also said I want to get out of here and go upstairs. Explained to him that he is sick and in the hospital. Will attempt to give his AM meds when he is more wakeful. Bed alarm is on and call light in reach. Will continue to monitor mental status.
[2020-11-09 10:19] LABS: Add Manual Diff / Slide Review NO; Basophils Absolute Auto 100 /uL (0-100); Basophils Percent Auto 1.3 % (0-2); Eosinophils Absolute Auto 200 /uL (0-450); Eosinophils Percent Auto 3.1 % (2-4); Hematocrit 32.6 % (41-53); Lymphocytes Absolute Auto 800 /uL (1100-4500); Lymphocytes Percent Auto 15.4 % (25-40); Mean Corpuscular HGB Conc 33.8 % (30-36); Mean Corpuscular Hemoglobin 35.5 PG (26-34); Mean Corpuscular Volume 105.1 fL (80-100); Monocytes Absolute Auto 500 /uL (0-900); Monocytes Percent Auto 9.3 % (3-14); Neutrophils Absolute Auto 3600 /uL (1500-7000); Neutrophils Percent Auto 70.9 % (50-75); Platelet Count 120 X10^3/uL (150-400); Red Cell Distribution Width 13.8 % (11.6-14.8); White Blood Cell Count 5.1 X10^3/uL (4.5-11.0)
--- NOTE | 2020-11-09 11:14 | DIET.CONS2 ---
Dietary Inpatient Consultation Note Admission Date: 11/08/2020 09:14 Assessment: 75y M admitted for witnessed Tonic Clonic seizure secondary to etoh withdrawl referred to nutrition for suspected malnutrition. Pt normally lives c spouse, but spouse has been in [place] since August helping c care for daughter. Pt has hx dementia and heavy drinking c past inpatient etoh tx. Per pt usual intake is 3-4 beers and 3-4 shots whiskey daily resulting in 8 etoh equivalents daily- 4x recommended moderate etoh intake for male. Pt daily day drinking habit increases risk for thiamine deficiency and general poor nutrition secondary to poor food choices and substituting etoh calories for food. Pt chewing on telemetry sensor this hospitalization thinking it was gristle from a sandwich. Pt c difficulty self-feeding secondary to tremor and altered mental status. Kitchen to send up finger foods and beverages with lids and straws to support POs. Nutrition Dx: Chronic Moderate Malnutrition r/t excessive etoh use aeb pt consuming 4x recommended etoh amounts daily, pt with dementia at baseline, pts spouse currently out of state x2mo, pt admitted after etoh withdrawl seizure and prior hx same c attempts at IP rehab. Diet: 11/08/20 Breakfast Clear Liquid Diet Diet Modifications: 11/08/20 Lunch Heart Healthy Diet Diet Modifications: finger foods/cups c lid and straw Sodium Level: 2 gm Sodium Nutrition Percent Meal Consumed only a few bites of eggs/wasnt 11/09/20 09:45 hungry Percent Meal Consumed 50% 11/08/20 18:00 Percent Meal Consumed 50% 11/08/20 13:42 General Nutrition Dietary Nutrition Intervention Start: 11/09/20 11:09 Freq: Status: Active Protocol: Document 11/09/20 11:09 AP (Rec: 11/09/20 11:14 AP [id number]) Nutritional Needs Dietary Intake Other Feeding Problems chronic etoh use (8 etoh equivalents daily) Nutritional Calculations Patient Data Protocol: NUTR.AMPUT Height 175.2 cm Weight 72 kg Weight Calculations Protocol: NUTR.WC [place] Body Weight (lbs) 159.88 [place] Body Weight (kgs) 72.52 Percent of [place] Body Weight (%) 99 Adjusted Body Weight (lbs) 159.59 Adjusted Body Weight (kgs) 72.39 BMI Protocol: NUTR.BMI Body Mass Index (BMI) 23.4 Body Mass Index (BMI) Classification Normal BEE - [place] Equation Protocol: NUTR.BEE Basal Energy Expenditure (BEE) (kcal) 1431.68 RMR - [place] Equation Protocol: NUTR.RMR Resting Metabolic Rate (kcal) 1455.20 Estimated Protein Requirements Based on Protein Factor Protocol: NUTR.EPR Protein Factor (grams/kg/day) 1 Estimated Protein Needs (grams/day) 72.0 Estimated Protein Requirements Based on Age and Weight Protocol: NUTR.EPR1 Estimated Protein Needs (grams/day) 57.6 Fluid Requirements - Method 1 Protocol: NUTR.FLUID Fluid Factor (Method 1) 30 mL/kg for Average Ad Fluid Requirements (Method 1) (mL/day) 2160 Fluid Requirements - Method 2 Fluid Requirements (Method 2) (mL/day) 2280.00 Fluid Requirements - Method 4 Fluid Requirements (Method 4) (mL/day) 2280.00 Fluid Requirements - Method 5 Fluid Requirements (Method 5) (mL/day) 2220.00 Malnutrition Evaluation Nutrient Intake Nutrient Intake Inadequate, suboptimal solid diet Weight Subjective loss of weight over past 6 None or mild months General Diet Evaluation/Recommendation Nutrition Diagnosis Protein Calorie Malnutrition Chronic,Social,Moderate Etiology excessive etoh use As evidenced by pt admitted c etoh withdrawl seizure, pt has hx dementia Nutrition Monitoring/Goals Goal(s) Pt able to self feed adequate POs to meet 75% EER through ONS and solid table foods Summary Nutrition Risk Moderate Risk Monitoring/Evaluation: If pts POs <50% will send ONS to support nutrition needs. Electronically Signed by: Tressa Jeffries 11/09/20 11:14 Clinical Diet[address] [id number]
--- NOTE | 2020-11-09 11:37 | PC.NURSE ---
Day shift: Dr Melton informed that Pt refused all AM meds today. wants Pt to get OOB and ambulate when able and willing.
[2020-11-09 11:51] LABS: Alanine Aminotransferase 40 IU/L (<50); Albumin Globulin Ratio 1.3 (1.0-2.8); Alkaline Phosphatase 69 U/L (38-126); Aspartate Aminotransferase 39 IU/L (17-59); BUN Creatinine Ratio 15.8 (6-22); Bilirubin Total 0.5 mg/dL (0.2-1.3); Blood Urea Nitrogen 12 mg/dL (9-20); Calcium 8.4 mg/dL (8.4-10.2); Carbon Dioxide 28 mmol/L (22-32); Chloride 104 mmol/L (98-107); Estimated Glomerular Filt Rate > 60.0 mL/min (>60); Globulin 2.3 g/dL (1.7-4.1); Glucose 110 mg/dL (80-110); HEMOLYSIS < 15 (0-50); Potassium 3.7 mmol/L (3.4-5.1); Sodium 135 mmol/L (137-145); Total Protein 5.3 g/dL (6.3-8.2)
--- NOTE | 2020-11-09 13:58 | CM.DANOTE ---
DCP/Assessment: Reviewed chart. Patient is a 75yr old male with h/o alcoholism. PCP is Dr. Reyna. Primary payor is 1)Medicare 2)[facility]. SERVICE STATION HELPER met with patient briefly on 11-08 explained role. Patient alert but sleepy at time of visit. Patient reports that he has no interest in going to ETOH treatment or detox. Patient with several hospitalizations related to his ETOH use. Patient reports that he would like to go home once stable and appeared somewhat agreeable to home health. SERVICE STATION HELPER spoke with Dr. Melton and he is in agreement for patient to d/c home with home health and requesting SERVICE STATION HELPER assist with facilitating Meals on Wheels. F2F signed by provider. Per nursing patient had incident requiring him to get IV Haldol. Therefore, today patient sound asleep and unable to arouse. SERVICE STATION HELPER to re-attempt home health arrangements and initiating community services once patient medically appropriate and capable of discussing plan. P: Anticipate home. Unable to finalize d/c plan due to ETOH withdrawal which required Haldol. ROBERTOS Discharge Planning/Care Management Advanced directive, confirm from FAMILY Start: 11/07/20 20:17 Freq: Q24H Status: Active Protocol: Document 11/08/20 23:59 SL (Rec: 11/09/20 00:07 [id number]) Advance Directive, confirm on record Time 00:07 Person contacted patient Copy received No CM Discharge Assessment Start: 11/09/20 13:51 Freq: Status: Active Protocol: Document 11/09/20 13:52 KJS (Rec: 11/09/20 13:58 KJS [id number]) Discharge Planning Assessment Assigned Manager Client JEROME Cardenas Contact Information Marya Porter (spouse) Advance Directives? No Advance Directives on File No History Provided By Patient,Medical Record Prior Living Arrangements House Household Members spouse Type of transporation used prior to Drives own vehicle admit Independent with ADL's Yes Is patient alert and oriented? No: Awake on 11-08 but groggy due to meds on 11-09 Caregiver for Another No DME Already Rented / Owned FWW / Walker Comment Patient reports that he has walker but does not use. Patient/Family Preference Drug/Alcohol Rehab Comment Patient with h/o etoh abuse. Patient reports that he has gone to multiple treatment centers for ETOH abuse in the past. Patient states they didn't work. Initial interview patient showed no desire to go to treatment for his ETOH abuse. Discharge Plan Home Transportation Arrangement Patient reports that he may have friend or family member to provide him transport. Referrals Initiated Other Additional Comment SERVICE STATION HELPER to provide patient with community resources for ETOH, Meals on Wheels, and arrange home health if patient in agreement. Whiteboard Updated in Patient Room with Yes name and ext. # of Manager Client Review Status In Process Next Review Type Continued Stay Review
--- NOTE | 2020-11-09 14:43 | PC.NURSE ---
Day shift: Pt waking up more but still unable to say his name of . He has attempted to get OOB 3 times but when he is reminded that he is in the hospital he lays back down. He has been calm at this time. Again, no meds given on this shift.
[2020-11-09] MEDS: SODIUM CHLORIDE 0.9% FLUSH 10 ML IV (20:36)
--- NOTE | 2020-11-09 22:58 | PC.NURSE ---
Addendum entered by Love Lopez R.N. 11/09/20 23:29: During hallucinations patient calling this RN Orquidea and POLO Jaeger. Patient oriented to self only and calling for help to get out, stating he is being held against his will. Original Note: Evening Shift Note Patient resting comfortably at beginning of shift, CIWA 3. Patient impulsive x1, and standing at bedside this RN medicated patient per CIWA. CIWA reassessed per protocol and medicated per protocol. Patient with hallucinations towards end of shift yelling for Mil and Orquidea. Patient medicated with Haldol with minimal effect. Patient with continued impulsive behavior and anxiety attempting to get out of bed and calling for family members. This RN medicated patient with Valium at change of shift. Patient currently sleeping comfortably. Pulse oximeter on for continued monitoring. shift boss nurse updated.
[2020-11-10] VITALS (7 sets, daily range): BP systolic 118–150; BP diastolic 76–102; PULSE 78–94; RESP 14–20; TEMP 36.3–36.8; O2SAT 94–96
[2020-11-10] MEDS: LORazepam 2 MG/ML INJ IV (02:11)
[2020-11-10] MEDS: HALOPERIDOL 5 MG/ML VIAL 2 MG IV (02:29)
[2020-11-10 08:08] LABS: Add Manual Diff / Slide Review NO; Basophils Absolute Auto 100 /uL (0-100); Basophils Percent Auto 1.3 % (0-2); Eosinophils Absolute Auto 100 /uL (0-450); Eosinophils Percent Auto 2.9 % (2-4); Hematocrit 33.9 % (41-53); Hemoglobin 11.6 g/dL (13.5-17.5); Lymphocytes Absolute Auto 800 /uL (1100-4500); Lymphocytes Percent Auto 14.8 % (25-40); Mean Corpuscular HGB Conc 34.2 % (30-36); Mean Corpuscular Hemoglobin 35.9 PG (26-34); Monocytes Absolute Auto 600 /uL (0-900); Monocytes Percent Auto 11.4 % (3-14); Neutrophils Absolute Auto 3600 /uL (1500-7000); Neutrophils Percent Auto 69.6 % (50-75); Platelet Count 134 X10^3/uL (150-400); Red Blood Cell Count 3.23 X10^6/uL (4.5-5.9); Red Cell Distribution Width 13.7 % (11.6-14.8); White Blood Cell Count 5.1 X10^3/uL (4.5-11.0)
--- NOTE | 2020-11-10 08:23 | PC.NURSE ---
Day shift: Discussed w/ Dr Reyna the events of last night and Pt's current condition. Dr Reyna also said Pt would be staying overnight again. was also informed of MAR medications given to Pt overnight (r/t CIWA score). Pt is asleep at this time. Call light in reach and bed alarm is on.
[2020-11-10 08:26] LABS: Alanine Aminotransferase 37 IU/L (<50); Albumin 3.2 g/dL (3.5-5.0); Albumin Globulin Ratio 1.3 (1.0-2.8); Alkaline Phosphatase 70 U/L (38-126); Aspartate Aminotransferase 36 IU/L (17-59); BUN Creatinine Ratio 15.9 (6-22); Bilirubin Total 0.5 mg/dL (0.2-1.3); Blood Urea Nitrogen 11 mg/dL (9-20); Calcium 8.5 mg/dL (8.4-10.2); Carbon Dioxide 28 mmol/L (22-32); Chloride 106 mmol/L (98-107); Estimated Glomerular Filt Rate > 60.0 mL/min (>60); Globulin 2.5 g/dL (1.7-4.1); Glucose 95 mg/dL (80-110); HEMOLYSIS < 15 (0-50); Potassium 3.5 mmol/L (3.4-5.1); Sodium 138 mmol/L (137-145); Total Protein 5.7 g/dL (6.3-8.2)
--- NOTE | 2020-11-10 09:15 | P.PN_ITS ---
Subjective Subjective Date Patient Seen: 11/10/20 Time Patient Seen: 09:15 Interval history: Nursing reports patient had a CIWA score of 8 overnight, treated with 2 mg of IV haldol and 2 mg of IV Ativan at 02:30. At 08:30, CIWA was 1 and patient was sedated. This afternoon at 16:00, patient is still feeling tired but is arousable and able to converse. Reports that his appetite is good and that he has been eating food. Denies any pain. He is tearful about going home. Reports that he is open to counseling today. He does have an AA sponsor but has not connected with him recently. Declines further attempts at rehab. Exam Vital Signs (past 8 hours): - 11/10/20 01:30 11/10/20 02:31 Temperature 97.8 F Pulse Rate 94 H 94 H Respiratory Rate 18 20 Blood Pressure 150/91 H Pulse Oximetry 96 Oxygen Delivery Method Room Air Oxygen Flow Rate 0 Narrative Exam Narrative: GENERAL: Alert and oriented, appearing stated age and in no acute distress. HEENT: Head normocephalic/atraumatic. CV: Normal S1 and S2 with regular rate and rhythm, no audible murmurs, rubs or gallops. ABDOMEN: Soft, non-tender, non-distended, no organomegaly. Positive bowel sounds. EXTREMITIES: No clubbing, cyanosis, or edema. NEURO: Cranial nerves II through XII grossly intact, no focal deficits. PSYCH: Alert and oriented x 3. SKIN: No concerning lesions. Objective Labs Result Diagrams: 11/10/20 07:40 11/10/20 07:40 Labs: Laboratory Results - last 24 hr 11/09/20 11/09/20 11/10/20 07:00 07:00 07:40 WBC 5.1 RBC 3.10 L Hgb 11.0 L Hct 32.6 L MCV 105.1 H MCH 35.5 H MCHC 33.8 RDW 13.8 Plt Count 120 L Neut % (Auto) 70.9 Lymph % (Auto) 15.4 L Stewart % (Auto) 9.3 Eos % (Auto) 3.1 Baso % (Auto) 1.3 Neut # (Auto) 3600 Lymph # (Auto) 800 L Stewart # (Auto) 500 Eos # (Auto) 200 Baso # (Auto) 100 Sodium 135 L 138 Potassium 3.7 3.5 Chloride 104 106 Carbon Dioxide 28 28 BUN 12 11 Creatinine 0.76 0.69 Estimated GFR > 60.0 > 60.0 BUN/Creatinine Ratio 15.8 15.9 Glucose 110 95 Calcium 8.4 8.5 Total Bilirubin 0.5 0.5 AST 39 36 ALT 40 37 Alkaline Phosphatase 69 70 Total Protein 5.3 L 5.7 L Albumin 3.0 L 3.2 L Globulin 2.3 2.5 Albumin/Globulin Ratio 1.3 1.3 11/10/20 07:40 WBC 5.1 RBC 3.23 L Hgb 11.6 L Hct 33.9 L MCV 105.0 H MCH 35.9 H MCHC 34.2 RDW 13.7 Plt Count 134 L Neut % (Auto) 69.6 Lymph % (Auto) 14.8 L Stewart % (Auto) 11.4 Eos % (Auto) 2.9 Baso % (Auto) 1.3 Neut # (Auto) 3600 Lymph # (Auto) 800 L Stewart # (Auto) 600 Eos # (Auto) 100 Baso # (Auto) 100 Sodium Potassium Chloride Carbon Dioxide BUN Creatinine Estimated GFR BUN/Creatinine Ratio Glucose Calcium Total Bilirubin AST ALT Alkaline Phosphatase Total Protein Albumin Globulin Albumin/Globulin Ratio [facility] Medical History (Updated 11/07/20 @ 22:03 by Collins Bravo MD) Alcohol abuse Atrial fibrillation Gout HTN (hypertension) Social History marital status: household members: spouse occupational status: previously employed Smoking Status: Former smoker alcohol intake: current substance use type: does not use Assessment & Plan Assessment & Plan narrative: 1. Acute alcohol withdrawal, status post seizure Plan: Continue CIWA protocol, hopeful that patient will be able to get through the night without withdrawals and [facility] Discussed case with social Work, plan will be to go home with home health, Meals on wheels, and support from sponsor. 2. Macrocytic anemia, chronic, secondary to alcoholism Plan: Continue MV, oral folate and thiamine. 3. CKD 3a, new, resolved. 4. Atrial fibrillation Plan: Continue home diltiazem and metoprolol. On lovenox in hospital, not a candidate for anticoagulation at home secondary to fall risk. 5. Hypertension, uncontrolled. Plan: Will increase metoprolol to 75 mg PO BID. Dispo: Possible discharge tomorrow. Code: full MDM: Marya: [phone] DVT: lovenox Diet: General Time Spent With Patient Critical Care time: I spent a total of [] minutes of critical care time on this patient's care today; this time is exclusive of procedural time.
[2020-11-10] MEDS: SODIUM CHLORIDE 0.9% FLUSH 10 ML IV ×2 (09:16→21:03)
--- NOTE | 2020-11-10 09:17 | PC.NURSE ---
Day shift: Pt refused AM meds. Explained their importance and still refused. If and when Pt is more awake will attempt to give these meds again. Dr Reyna aware that Pt would likely not take his AM meds today.
--- NOTE | 2020-11-10 11:43 | PC.NURSE ---
Day shift: Pt's brief was dry and Pt did void in urinal with help of SPECIAL ASSEMBLIES SUPERVISOR at approx 1130 today. Pt remains sedated and calm at this time. Bed alarm is on and call light in reach.
[2020-11-10] MEDS: chlordiazePOXIDE 10 MG CAPSULE PO ×2 (15:26→21:02)
[2020-11-11] VITALS (10 sets, daily range): BP systolic 80–141; BP diastolic 49–100; PULSE 51–94; RESP 16–18; TEMP 36.3–36.8; O2SAT 94–100
[2020-11-11] MEDS: LORazepam 1 MG TABLET PO (02:43)
--- NOTE | 2020-11-11 03:33 | PM.PN.1 ---
Subjective Subjective Date Patient Seen: 11/11/20 Time Patient Seen: 12:00 Interval history: Patient still having high CIWA scores overnight, had a 10 at 02:43 this morning, covered with 1 mg of ativan. Declined his chronic medications yesterday morning as well as his lovenox and vitamins. He also declined his metoprolol yesterday evening. Blood pressure surprisingly came down overnight but he has been receiving scheduled chlordiazepoxide tid. Patient seen at the bedside at approximately noon today. He has just finished his lunch and reports that he has an excellent appetite. Denies any pain or drive for alcohol. Feels more awake today. Patient is missing his , does not remember talking to her during this admission. Open to going to half-way, feels lonely at home. Understands that he will not have alcohol at the half-way. Exam Vital Signs (past 8 hours): - 11/11/20 00:00 Temperature 97.9 F Pulse Rate 94 H Respiratory Rate 18 Blood Pressure 138/95 H Pulse Oximetry 95 Oxygen Delivery Method Room Air Oxygen Flow Rate 0 Narrative Exam Narrative: GENERAL:? Alert and oriented, appearing stated age and in no acute distress. HEENT:? Head normocephalic/atraumatic. CV:? Normal S1 and S2 with regular rate and rhythm, no audible murmurs, rubs or gallops. ABDOMEN:? Soft, non-tender, non-distended, no organomegaly.? Positive bowel sounds. EXTREMITIES:? No clubbing, cyanosis, or edema. NEURO:? Cranial nerves II through XII grossly intact, no focal deficits. PSYCH:? Alert and oriented x 3. SKIN:? No concerning lesions. Objective Labs Result Diagrams: 11/11/20 05:25 11/11/20 04:30 Labs: Laboratory Results - last 24 hr 11/10/20 11/10/20 07:40 07:40 WBC 5.1 RBC 3.23 L Hgb 11.6 L Hct 33.9 L MCV 105.0 H MCH 35.9 H MCHC 34.2 RDW 13.7 Plt Count 134 L Neut % (Auto) 69.6 Lymph % (Auto) 14.8 L Miner % (Auto) 11.4 Eos % (Auto) 2.9 Baso % (Auto) 1.3 Neut # (Auto) 3600 Lymph # (Auto) 800 L Miner # (Auto) 600 Eos # (Auto) 100 Baso # (Auto) 100 Sodium 138 Potassium 3.5 Chloride 106 Carbon Dioxide 28 BUN 11 Creatinine 0.69 Estimated GFR > 60.0 BUN/Creatinine Ratio 15.9 Glucose 95 Calcium 8.5 Total Bilirubin 0.5 AST 36 ALT 37 Alkaline Phosphatase 70 Total Protein 5.7 L Albumin 3.2 L Globulin 2.5 Albumin/Globulin Ratio 1.3 [facility] Medical History (Updated 11/07/20 @ 22:03 by Collins Bravo MD) Alcohol abuse Atrial fibrillation Gout HTN (hypertension) Social History marital status: household members: spouse occupational status: previously employed Smoking Status: Former smoker alcohol intake: current substance use type: does not use Assessment & Plan Assessment & Plan narrative: 1.? Acute alcohol withdrawal, status post seizure -4 days since last alcohol ingestion Plan:? ? Continue CIWA protocol, still requiring prn medications for high scores. Will stop scheduled chlordiazepoxide today as patient seemed to be oversedated during the day yesterday. Hopeful that patient will be able to get through the night without withdrawals. Reconsidering patient's ability to go home alone secondary to his risk for relapse and dementia; will discuss SNF with social work and try to arrange that. Patient is not interested in rehab. 2.? Macrocytic anemia, chronic, secondary to alcoholism Plan:? Patient declined his MV, oral folate and thiamine yesterday. Will try to encourage this today and arrange SNF as noted above. Nutrition has already consulted. 3.? Atrial fibrillation, persistent Plan:? Patient declined his home diltiazem and metoprolol as well as inpatient lovenox in hospital. Will encourage compliance today. 4.? Hypertension, uncontrolled secondary to medication non-compliance. Plan:? Will encourage patient to take usual home doses of metoprolol to 50 mg PO BID and diltiazem 120 mg PO qd. 5. 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 6. Depression Plan: Patient has been resistant to counseling and medication to date. He has nearly exhausted all of his personal relationships and is now living alone. Will pursue SNF upon discharge for ongoing support and stay connected in the outpatient setting in the case that he becomes amenable to counseling and medication. Dispo: ? Possible discharge tomorrow. Code: full MDM: Marya: [phone] DVT: lovenox Diet: Heart healthy ADDENDUM: Talked with , Marya, she is supportive of SNF placement.
[2020-11-11 05:14] LABS: Alanine Aminotransferase 35 IU/L (<50); Albumin 3.3 g/dL (3.5-5.0); Albumin Globulin Ratio 1.4 (1.0-2.8); Alkaline Phosphatase 74 U/L (38-126); Aspartate Aminotransferase 35 IU/L (17-59); BUN Creatinine Ratio 21.9 (6-22); Bilirubin Total 0.3 mg/dL (0.2-1.3); Blood Urea Nitrogen 14 mg/dL (9-20); Calcium 8.8 mg/dL (8.4-10.2); Carbon Dioxide 29 mmol/L (22-32); Chloride 106 mmol/L (98-107); Estimated Glomerular Filt Rate > 60.0 mL/min (>60); Globulin 2.4 g/dL (1.7-4.1); Glucose 94 mg/dL (80-110); HEMOLYSIS 19 (0-50); Magnesium 1.7 mg/dL (1.6-2.3); Potassium 3.5 mmol/L (3.4-5.1); Sodium 138 mmol/L (137-145); Total Protein 5.7 g/dL (6.3-8.2)
[2020-11-11 05:46] LABS: Add Manual Diff / Slide Review NO; Basophils Absolute Auto 100 /uL (0-100); Basophils Percent Auto 1.5 % (0-2); Eosinophils Absolute Auto 200 /uL (0-450); Eosinophils Percent Auto 3.2 % (2-4); Hematocrit 34.3 % (41-53); Hemoglobin 11.5 g/dL (13.5-17.5); Lymphocytes Absolute Auto 800 /uL (1100-4500); Lymphocytes Percent Auto 16.5 % (25-40); Mean Corpuscular HGB Conc 33.4 % (30-36); Mean Corpuscular Hemoglobin 35.4 PG (26-34); Mean Corpuscular Volume 105.9 fL (80-100); Monocytes Absolute Auto 700 /uL (0-900); Monocytes Percent Auto 13.3 % (3-14); Neutrophils Absolute Auto 3300 /uL (1500-7000); Neutrophils Percent Auto 65.5 % (50-75); Platelet Count 155 X10^3/uL (150-400); Red Blood Cell Count 3.24 X10^6/uL (4.5-5.9); White Blood Cell Count 5.1 X10^3/uL (4.5-11.0)
[2020-11-11 06:20] LABS: Folate 9.5 ng/mL (2.76-20.0); Vitamin B12 222 pg/mL (239-931)
[2020-11-11 06:26] LABS: TSH w/ Reflex to FT4 0.78 uIU/mL (0.47-4.68)
[2020-11-11] MEDS: ENOXAPARIN 40 MG/0.4 ML SYRINGE SUBCUT (08:31)
[2020-11-11] MEDS: METOPROLOL IR 50 MG TABLET PO (08:31)
[2020-11-11] MEDS: FOLIC ACID 1 MG TABLET PO (08:31)
[2020-11-11] MEDS: MULTIVITAMIN 1 TABLET 1 TAB PO (08:31)
[2020-11-11] MEDS: dilTIAZem SR 60 MG 120 MG PO (08:31)
[2020-11-11] MEDS: THIAMINE 100 MG TABLET PO (08:31)
[2020-11-11] MEDS: SODIUM CHLORIDE 0.9% FLUSH 10 ML IV ×2 (08:31→19:11)
--- NOTE | 2020-11-11 11:28 | CM.DPC ---
Addendum entered by Kasey Gonzalez, STRAP MAKING MACHINE OPERATOR 11/11/20 15:56: ADD: Return call from [facility] and confirm they are established already with pt but were unaware he was admitted to the hospital. But will need a call when pt is to return home so they can Resume dropping off meals to him and aware he may need SNF before return home. BF Addendum entered by Kasey Gonzalez, [facility] 11/11/20 14:11: ADD: met bedside with pt this afternoon and had discussion regarding d/c planning and recommendation of SNF by MD and pt now agreeable as he doesn't remember his seizures or challenges with his ETOH use. Pt agreeable with SNF referrals to determine if any can accept and have bed availability. ERNIE made SNF referrals to [facility] and called both admissions and provided update on pt status and needs and they will review. SW faxed referral to [facility] and they are archie PT/OT ordered and pending. Per MD, pt may be stable for d/c tomorrow or the next day if pt continues to progress in his medical stability. PASRR completed. Plan: SW to follow closely for SNF review of pt to determine if they can accept vs return home with [facility] referral and [facility]. BF Original Note: DCP Cont: Per MD, pt continues to have withdrawal symptoms but seems slightly more alert and oriented this morning and able to follow directives. ERNIE met bedside with pt and explained role and pt confirms he is still feeling terrible and SW remembers pt from last admission. ERNIE inquired about pt's spouse and he confirms she is still in [place] with their Dtr and JOSE LUIS as has been for about a month as she was there awaiting the of their second granddtr and now pt's spouse remains in [place] to help Dtr out with childcare. Pt states he has not spoken to his in a while and get the sense that pt's ETOH has created tension and difficulty in their marriage. SW attempted to assist getting spouse on the phone as pt hasn't spoken to her about his admission to the hospital and SW had to [place] [facility] [place] and also provided DCP office phone number for contact. ERNIE inquired how pt might get home at d/c and currently he is unsure but states maybe his brother in [place] could help transport him home. Pt may need taxi transport home but unclear if his wallet is here as pt still groggy and slow to respond. SW discussed HH and pt currently agreeable and no HH preference and due to location in [place] made referral to [facility] based on Vendor Calendar. F2F signed and CC Jennifer kindly faxed initial referral to [facility] knowing pt likely still here another couple days before medically stable. SW discussed recommendation from MD regarding [facility] and pt also agreeable to this and SW called the [facility] [phone] and left msg with [facility] coordinator for [place] with pt name and number as well as SW office contact phone to assist in setting up. Pt again confirms that he is not interested in ETOH resources or tx at this time. Plan: SW to follow closely for pt's progress and eventual PT orders towards confirming safe d/c home with new [facility] and [facility] and assist with figuring out transport home to [place]. Kasey Gonzalez, STRAP MAKING MACHINE OPERATOR
--- NOTE | 2020-11-11 11:41 | CM.DPNOTE ---
Faxed referral packet to [facility] per Kasey and received fax conf. Jennifer Mccallum CM Asst.
--- NOTE | 2020-11-11 15:23 | PT.IIE ---
Current Diagnoses Other specified diseases of blood and blood-forming organs (11/08/20) Alcohol dependence with withdrawal, unspecified (11/08/20) Unspecified atrial fibrillation (11/08/20) Unspecified convulsions (11/08/20) Other specified abnormal findings of blood chemistry (11/08/20) Medical History (Last Reviewed 11/07/20 @ 21:54 by Collins Bravo MD) Alcohol abuse Atrial fibrillation Gout HTN (hypertension) Physical Therapy Inpatient Evaluation/Re-Eval M1 PT/OT-IP Prior Functional Status Start: 11/11/20 15:22 Freq: NEEDED Status: Active Protocol: Document 11/11/20 15:23 DLM (Rec: 11/11/20 15:42 DL [id number]) Medical Review Prior Functional Status Medical History Reviewed Yes Diet/Fluid Consistency Regular Communication WFL, hx of decreased memory per chart notes Mobility and Gait Independent without device Activities of Daily Living and IADL's Independent Social History Household Members spouse Living Arrangements House Number of Floors (Floors) Two Floors Number of Stairs To Enter/Railing? 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 M2 PT-IP Current Condition Start: 11/11/20 15:22 Freq: NEEDED Status: Active Protocol: Document 11/11/20 15:23 DLM (Rec: 11/11/20 15:42 DL [id number]) Physical Therapy Current Condition Current Condition Evaluation Date 11/11/20 Treatment Diagnosis seizure, impaired gait Onset Date 11/08/20 Precautions Other Precautions ETOH precautions, seizure precautions M3 PT-IP Subjective Start: 11/11/20 15:22 Freq: NEEDED Status: Active Protocol: Document 11/11/20 15:23 DLM (Rec: 11/11/20 15:42 DL [id number]) Subjective Physical Therapy Visit Type Type Initial Evaluation Visit Start Time 14:45 Visit Stop Time 15:23 Total Visit Minutes 38 Number of LOFTSMAN Visits 0 Physical Therapy Visit Comments Patient Comments He is not sure he can take care of himself at home at this time. He c/o low back pain. He denies hx of low back pain at this time. He does not know why his back would hurt. Patient Goals Get better Therapy Pain Assessment Pain When Pain Assessed During Mobility Pain Present Pain Present Pain Reported Location Lower Back Intensity 5 Scale Used Numeric (0 - 10) Description Aching,Sharp,With Movement Pain Behaviors Facial Grimacing,Guarding, Wincing Pain Management Techniques Apply Heat,Re-positioning M4 PT-IP Mobility and Gait Start: 11/11/20 15:22 Freq: NEEDED Status: Active Protocol: Document 11/11/20 15:23 DLM (Rec: 11/11/20 15:42 DL [id number]) PT-Bed Mobility Assessment Rolling Type of Rolling Bilateral Level of Assist Independent Supine to Sit Supine to Sit Standby Assistance Scooting Scooting to Edge of Bed Independent PT-Transfer Assessment Sit to and From Stand Sit to and from Stand Contact Guard Assistance, Minimal Assistance,Use of Upper Extremities Equipment Transfer Assistive Device Gait Belt,Front Wheeled Walker Transfers Transfer Destination Chair Transfer Technique Stand Step Pivot Transfer Ability Level of Assist Contact Guard Assistance, Minimal Assistance Comments Mobility Comments He needs assist to control descent into sitting and when he does not use control he has increased back pain. Pt up to recliner this visit with chair alarm and call light close. Gait Assessment Gait Gait Assistance Required: Contact Guard Assist Distance (Feet) 110 Assistive Devices Assistive Device Gait Belt,Front Wheeled Walker Gait Deviations General Gait Pattern Decreased Stride Length Factors Limiting Gait Function Factors Limiting Gait Function Decreased Activity Tolerance, Incoordination,Pain,Poor Balance Comments Gait Comments Mild drift left during gait with fWW. He reports less back pain walking than during sit- stand. Stair Climbing Assessment Comments Stair Climbing Comments not assessed this visit, pt has 3 steps to enter his home PT-Balance Assessment Sitting Balance and Reactions Static Sitting Balance Ability Good Dynamic Sitting Balance Ability Good Standing Balance and Reactions Static Standing Balance Ability Good Dynamic Standing Balance Ability Fair Device Used FWW M5 PT-IP Objective Assessments Start: 11/11/20 15:22 Freq: NEEDED Status: Active Protocol: Document 11/11/20 15:23 DLM (Rec: 11/11/20 15:42 DL [id number]) Orientation Orientation/Cognition Level of Alertness Alert Orientation Name,Age,Birthday Language Function Ability Hard of Hearing Safety Awareness Decreased Safety Awareness Memory Description Short Term Impaired,[facility] Impaired Comments He is aware he is in the hospital but not sure what town at this time. He does not recall what happened to him but is aware that he had a seizure. He is intermittenly tearful during conversation. Gross Range of Motion Upper Extremity ROM Assessment Within Functional Limits Lower Extremity ROM Assessment Within Functional Limits Strength Upper Extremity Strength Shoulder 4/5 Elbow 4/5 Wrist 4/5 Hand 4/5 Lower Extremity Strength Assessment Bilaterally Impaired Hip 4/5 Knee 4/5 Ankle 4/5 Comments Strength Comments back pain with functional movements, he reports less pain when brings knees up towards chest seated in recliner Coordination Assessment Gross Coordination Gross Coordination Impaired Assessment Finger to Nose Test Minimal Impairment Foot Tapping Test Moderate Impairment Coordination Comments bradykinetic Sensation Assessment Sensation Gross Sensation WNL Comments Sensation Comments no numbness/tingling reported by pt at this time Muscle Tone Muscle Tone WNL Yes M6 PT-IP Treatment Start: 11/11/20 15:22 Freq: NEEDED Status: Active Protocol: Document 11/11/20 15:23 DL (Rec: 11/11/20 15:42 COUNTS INCLUDE 234 BEDS AT THE [facility] [id number]) Physical Therapy Treatment Exercises Exercises Ankle Pumps Education Education Provided Safety M7 PT-IP Assessment and Plan Start: 11/11/20 15:22 Freq: NEEDED Status: Active Protocol: Document 11/11/20 15:23 DLM (Rec: 11/11/20 15:42 COUNTS INCLUDE 234 BEDS AT THE [facility] [id number]) PT Summary Assessment and Plan Potential Rehabilitation Potential Good Status of Condition at Evaluation Evolving Summary Impairments Pain,ROM,Strength,Balance, Coordination,Cognition,Bed Mobility,Transfers,Gait, Activity Tolerance Assessment Summary Master is alert and resting in bed. He has a flat affect and intermittently gets tearful during conversation. He is bradykinetic with all movements. No tremors noted at this time. He needs one person assistance for his mobility and gait with FWW. He has low back pain that complicates his functional mobility. Pt reports he has no help available at home. He is not safe to be home alone at this time due to his need for assistance with mobility and because of his current cognitive impairments. Recommend SNF rehab at discharge. If his cognition continues to clear he may be able to progress to home with home health. Will continue to assess for discharge each visit. Goals Bed Mobility Goal Independent Transfer Goal Independent,Crutches,Front Wheeled Walker Gait Goal Independent,Front Wheel Walker Gait Distance 300 feet Other Goals Up and down 3 steps with rail and SBA Days to Meet Goals 7 Frequency of Treatment Frequency Of Treatment Twice a Day Treatment Plan Physical Therapy Treatment Plan Bed Mobility Training,Transfer Training,Gait Training, Therapeutic Exercise,Balance Retraining,Discharge Planning, Hot or Cold Pack,Neuromuscular Re-ed,Coordination Retraining Recommendations To Nursing Amount of Assist Needed 1 Person Assist Discharge Recommendations PT Discharge Recommendations SNF Rehab Other Discharge Recommendations recommend OT eval and treat also Equipment Needed for Home Before pt owns a FWW Discharge Transportation Needs at Discharge Private Vehicle
--- NOTE | 2020-11-11 16:55 | PC.NURSE ---
Addendum entered by Mary Rubin R.N. 11/11/20 19:46: CIWA is 1. Pt is restless, but based on hypotension this shift and after discussion with Dr. Reyna not eager to proceed with benozodiazipines. Tylenol administered for pt's c/o back pain. Offered oral fluids and foods and pt attend to pt as needed. Pt is cooperative with care. Addendum entered by Mary Rubin R.N. 11/11/20 18:50: SCD's not placed on this restless patient to keep pt safe during frequent movement and in and out of bed. Addendum entered by Mary Rubin R.N. 11/11/20 18:31: Pt is impulsive and moves self from one location to another in room. Gait is steady, but bed/chair alarms remain in place. Currently in bed with bed alarm in place. Addendum entered by Mary Rubin R.N. 11/11/20 17:52: Dr. Reyna returns phone call and was informed of pt's blood pressures. Orders to hold 2100 diltiazem and metoprolol and encourage oral fluids. Oral fluids of a large variety provided to pt. Original Note: Pt ambulatory in hallway with P.T. @ beginning of evening shift. Now up in recliner. Reports back is sore, but declines any offers for analgesia. Blood pressure checked multiple times by TOPOGRAPHICAL SURVEYOR and this medical underwriter using both small and regular adult cuff. SBP in the 80's with DBP in the high 40's low 50's. HR 50's to 60's. Pt denies any dizziness or lightheadedness. Is appropriately conversant although unsure of date or day of week. Assisted into bed per request to ease back discomfort. No complaints of dizziness with this movement. Legs elevated to support back and warm blanket applied for comfort. Dr. Reyna's office contacted and made aware of pt's blood pressures.
[2020-11-11] MEDS: ACETAMINOPHEN 325 MG TABLET PO (19:10)
[2020-11-12] VITALS (9 sets, daily range): BP systolic 65–147; BP diastolic 40–91; PULSE 45–98; RESP 16–18; TEMP 35.9–36.6; O2SAT 94–100
[2020-11-12] MEDS: ACETAMINOPHEN 325 MG TABLET PO (03:08)
[2020-11-12] MEDS: MULTIVITAMIN 1 TABLET 1 TAB PO (08:10)
[2020-11-12] MEDS: dilTIAZem SR 60 MG 120 MG PO (08:10)
[2020-11-12] MEDS: ENOXAPARIN 40 MG/0.4 ML SYRINGE SUBCUT (08:10)
[2020-11-12] MEDS: METOPROLOL IR 50 MG TABLET PO (08:10)
[2020-11-12] MEDS: FOLIC ACID 1 MG TABLET PO (08:11)
--- NOTE | 2020-11-12 08:18 | PT.IPTN ---
Addendum entered and electronically signed by Sharifa Castrejon, JERMAIN 11/12/20 09:04: BPs taken during tx: 150/80s supine, 120s/80s seated, 92/ 50s stand nonsymptomatic. 112/ 60s post mobility continued nonsymptomic. Reported to nursing for safety awareness. Original Note: Current Diagnoses Other specified diseases of blood and blood-forming organs (11/08/20) Alcohol dependence with withdrawal, unspecified (11/08/20) Unspecified atrial fibrillation (11/08/20) Unspecified convulsions (11/08/20) Other specified abnormal findings of blood chemistry (11/08/20) Physical Therapy Treatment Note M2 PT-IP Current Condition Start: 11/11/20 15:22 Freq: NEEDED Status: Active Protocol: Document 11/11/20 15:23 DLM (Rec: 11/11/20 15:42 DLM [id number]) Physical Therapy Current Condition Current Condition Evaluation Date 11/11/20 Treatment Diagnosis seizure, impaired gait Onset Date 11/08/20 Precautions Other Precautions ETOH precautions, seizure precautions M3 PT-IP Subjective Start: 11/11/20 15:22 Freq: NEEDED Status: Active Protocol: Document 11/12/20 07:45 SP (Rec: 11/12/20 09:02 SP [id number]) Subjective Physical Therapy Visit Type Type Treatment Note Visit Start Time 07:45 Visit Stop Time 08:18 Total Visit Minutes 33 Number of CHERRY PICKER OPERATOR Visits 1 Physical Therapy Visit Comments Patient Comments Pt asked where he was and how did he get here when arrived . The small of my back hurts when moving around. Pt willing to work with therapy. Therapy Pain Assessment Pain When Pain Assessed During Mobility Pain Present Pain Present Pain Reported Location Lower Back Intensity 5 Scale Used Numeric (0 - 10) Description Aching,Sharp,With Movement Pain Behaviors Facial Grimacing Pain Management Techniques Apply Heat,Re-positioning M4 PT-IP Mobility and Gait Start: 11/11/20 15:22 Freq: NEEDED Status: Active Protocol: Document 11/12/20 07:45 SP (Rec: 11/12/20 09:02 SP [id number]) PT-Bed Mobility Assessment Rolling Type of Rolling Bilateral Level of Assist Independent Supine to Sit Supine to Sit Contact Guard Assistance, Minimal Assistance,1 Person Assistance Scooting Scooting to Edge of Bed Independent PT-Transfer Assessment Sit to and From Stand Sit to and from Stand Contact Guard Assistance, Minimal Assistance,Use of Upper Extremities Equipment Transfer Assistive Device Gait Belt,Front Wheeled Walker Transfers Transfer Destination Chair Transfer Technique Stand Step Pivot Transfer Ability Level of Assist Contact Guard Assistance, Minimal Assistance,Use of Upper Extremities Comments Mobility Comments Pt alert x1, unaware of where and why is in the hospital. CHERRY PICKER OPERATOR educated LR for LBP support. He required CG- min A for trunk righting L SL> sit with cues for push with UEs and support stability coming to standing with cues for pushing from bed and COG over TICO once stand, noted trunk sway lateral/ side self recover with cues CGA. Noted decrease in BP with position changes nonsymptomatic. Pt agreeable to mobilizing SPT to chair CGA- Min A for trunk sway stability tends to carry FWW, cued for proper use on floor, back up full and reach back for slow controlled descent to chair. Sit>stand from chair using BUE, further distance gait around room using FWW CGA- Min A with sway self recovery. Completed ascend/ descend 2 portable steps RHR Min A with cue for quad facilitation and slow descent tends to firm land down stepping. Pt returned to chair continue cue for slow descent to chair using UE on chair arms. Pt had call light and all needs in reach w/ chair alarm donned for safety fall risk. Gait Assessment Gait Gait Assistance Required: Contact Guard Assist,Minimum Assistance,1 Person Assist Distance (Feet) 60 Able to Maintain Weight Bearing Status Yes During Gait Assistive Devices Assistive Device Gait Belt,Front Wheeled Walker Gait Deviations General Gait Pattern Antalgic,Decreased Stride Length Factors Limiting Gait Function Factors Limiting Gait Function Decreased Activity Tolerance, Decreased Strength, Incoordination,Pain,Poor Balance,Poor Safety Awareness Comments Gait Comments Mild trunk sway left during transfers and gait using FWW. Pt reports decreased back pain during gait than bed mobilty and sit<> stand. Stair Climbing Assessment Evaluation Level of Assist On Stairs Minimal Assistance,1 Person Assistance Devices Stair Climbing Assistive Devices Right Railing Technique/Endurance Stair Climbing Direction Ascend and Descend Stair Climbing Technique Step to Step Number of Steps Climbed 1 Stair Climbing Set # Repetitions (reps) 1 Comments Stair Climbing Comments See mobility comments. PT-Balance Assessment Sitting Balance and Reactions Static Sitting Balance Ability Normal Dynamic Sitting Balance Ability Good Standing Balance and Reactions Static Standing Balance Ability Good Dynamic Standing Balance Ability Fair Device Used FWW M5 PT-IP Objective Assessments Start: 11/11/20 15:22 Freq: NEEDED Status: Active Protocol: Document 11/11/20 15:23 DLM (Rec: 11/11/20 15:42 DLM [id number]) Orientation Orientation/Cognition Level of Alertness Alert Orientation Name,Age,Birthday Language Function Ability Hard of Hearing Safety Awareness Decreased Safety Awareness Memory Description Short Term Impaired,Unified Communications Architect Impaired Comments He is aware he is in the hospital but not sure what town at this time. He does not recall what happened to him but is aware that he had a seizure. He is intermittenly tearful during conversation. Gross Range of Motion Upper Extremity ROM Assessment Within Functional Limits Lower Extremity ROM Assessment Within Functional Limits Strength Upper Extremity Strength Shoulder 4/5 Elbow 4/5 Wrist 4/5 Hand 4/5 Lower Extremity Strength Assessment Bilaterally Impaired Hip 4/5 Knee 4/5 Ankle 4/5 Comments Strength Comments back pain with functional movements, he reports less pain when brings knees up towards chest seated in recliner Coordination Assessment Gross Coordination Gross Coordination Impaired Assessment Finger to Nose Test Minimal Impairment Foot Tapping Test Moderate Impairment Coordination Comments bradykinetic Sensation Assessment Sensation Gross Sensation WNL Comments Sensation Comments no numbness/tingling reported by pt at this time Muscle Tone Muscle Tone WNL Yes M6 PT-IP Treatment Start: 11/11/20 15:22 Freq: NEEDED Status: Active Protocol: Document 11/12/20 07:45 SP (Rec: 11/12/20 09:02 SP [id number]) Physical Therapy Treatment Education Education Provided Safety M7 PT-IP Assessment and Plan Start: 11/11/20 15:22 Freq: NEEDED Status: Active Protocol: Document 11/12/20 07:45 SP (Rec: 11/12/20 09:02 SP [id number]) PT Summary Assessment and Plan Potential Rehabilitation Potential Good Status of Condition at Evaluation Evolving Summary Impairments Pain,ROM,Strength,Balance, Coordination,Cognition,Bed Mobility,Transfers,Gait, Activity Tolerance Progress Towards Goals Slow Progress due to Pain,Slow Progress due to Activity Tolerance Assessment Summary Master alert to person, reported didn't know where he was or why here. Pt has flat affect. Orthostatic BPs during mobility, taken pre medication, nonsymptomatic pt stated BP normally in the 120s . CG- Min A with all mobiltiy using FWW and Min A during stair mgt. Trunk sway during standing mobility, requires cues for transfers. Pt had not home support and recommending SNF for continued strength , balance and safety training. Will continue to assess progress. Goals Bed Mobility Goal Independent Transfer Goal Independent,Crutches,Front Wheeled Walker Gait Goal Independent,Front Wheel Walker Gait Distance 300 feet Other Goals Up and down 3 steps with rail and SBA Days to Meet Goals 7 Frequency of Treatment Frequency Of Treatment Twice a Day Treatment Plan Physical Therapy Treatment Plan Bed Mobility Training,Transfer Training,Gait Training, Therapeutic Exercise,Balance Retraining,Discharge Planning, Hot or Cold Pack,Neuromuscular Re-ed,Coordination Retraining Other Recommendations and Next Treatment Safety HP during transfers, Focus gait FWW at this time for stability vs no AD but doesn't ususally use at home, balance assessment, continued stair mgt if safe. Check vitals Recommendations To Nursing Amount of Assist Needed 1 Person Assist Discharge Recommendations PT Discharge Recommendations SNF Rehab Other Discharge Recommendations recommend OT eval and treat also Equipment Needed for Home Before pt owns a FWW Discharge Transportation Needs at Discharge Private Vehicle
[2020-11-12] MEDS: SODIUM CHLORIDE 0.9% FLUSH 10 ML IV ×2 (08:26→22:08)
--- NOTE | 2020-11-12 12:09 | PM.DS.1 ---
History of Present Illness History of Present Illness Date Patient Seen: 11/12/20 Time Patient Seen: 09:30 Chief complaint: seizure Narrative: Patient presents with seizure in setting of heavy alcohol use. Tonic Clonic seizure witnessed by brother who was visiting town in consequence to which patient evidently decreased alcohol intake to some whiskey last night, half bottle of wine today, he usually drinks more than that per patient. ? Prior admission in August for similar issue with new afib at that time which seems to have continued today.? He is prescribed but does not take metoprolol tartrate 50 bid. Received phenobarb in ED.? On interview today, patient is alert and interactive but disoriented and can be confabulative, producing scant dark urine. Desires full code.? Spoke with his Marya ([phone]) currently in [place] who is MDM. He also has brother in [place] ([phone]). Family is aware of situation and that placement may be necessary. Discharge Providers Provider Date of admission: 11/08/20 09:14 Discharge Date: 11/12/20 Primary care physician: Cris Reyna MD Consults: 11/07/20 18:38 Consult to Dietitian, Adult Routine Comment: Reason For Exam: suspect malnutrition 11/11/20 14:07 Consult to Occupational Therapy Evaluate & Treat Comment: Physician Instructions: Evaluate and treat Consult to Physical Therapy Evaluate & Treat Comment: Physician Instructions: Evaluate and Treat 11/12/20 11:58 Consult to Home Health Routine Comment: Reason For Exam: Home health upon DC Discharge provider: Cris Reyna MD Summary Hospital Course Discharge Diagnosis: 1.? Acute alcohol withdrawal, status post seizure 2.? Macrocytic anemia, chronic, secondary to alcoholism 3.? Atrial fibrillation, persistent 4.? Hypertension, chronic 5.? 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 Depression Hospital Course: Patient went through an unremarkable alcohol detoxification per [facility] protocol. He normally does not take his diltiazem and metoprolol at home and has refused several doses while in the hospital. In the last 48 hours, his blood pressure has been hypotensive after taking both, metopolol will be discontinued upon discharge. Patient is socially isolated and unwilling to go to rehab again but not physically meeting criteria for a LTC placement. Discharge will be made to home with home health, meals on wheels, and sponsor support. Plan to follow up in 1 week in the clinic. Will continue to work on mental health care and connect patient to resources in the outpatient setting. Time spent on Discharge and Coordination of post-hospital care: 35 minutes. Exam Vital Signs (past 8 hours): - 11/12/20 04:26 11/12/20 08:00 11/12/20 10:45 Temperature 97.5 F L 97.4 F L 96.6 F L Pulse Rate 84 82 54 L Respiratory Rate 16 16 16 Blood Pressure 131/84 130/77 74/46 L Pulse Oximetry 94 94 100 Oxygen Delivery Method Room Air Oxygen Flow Rate 0 Narrative Exam Narrative: GENERAL:? More alert today, oriented, appearing stated age and in no acute distress. HEENT:? Head normocephalic/atraumatic. CV:? Normal S1 and S2 with regular rate and rhythm, no audible murmurs, rubs or gallops. ABDOMEN:? Soft, non-tender, non-distended, no organomegaly.? Positive bowel sounds. EXTREMITIES:? No clubbing, cyanosis, or edema. NEURO:? Cranial nerves II through XII grossly intact, no focal deficits. PSYCH:? Alert and oriented x 3. SKIN:? No concerning lesions. Objective Labs Result Diagrams: 11/11/20 05:25 11/11/20 04:30 [facility] Medical History (Updated 11/07/20 @ 22:03 by Collins Bravo MD) Alcohol abuse Atrial fibrillation Gout HTN (hypertension) Social History marital status: household members: spouse occupational status: previously employed Smoking Status: Former smoker alcohol intake: current substance use type: does not use Discharge Plan Discharge Plan Patient Disposition: Home Health Service Transfer to: Home Health, Other Discharge orders & Medications Prescriptions: New folic acid 1 mg Tablet 1 mg PO DAILY Qty: 90 RF: 3 multivitamin with folic acid [Tab-A-Cherri] 400 mcg Tablet 1 tab PO DAILY Qty: 90 RF: 3 Continued diltiazem HCl 120 mg capsule,extended release 24 hr 120 mg PO DAILY RF: 0 Discontinued metoprolol tartrate 50 mg tablet 50 mg PO BID Qty: 60 RF: 0 Follow up/Referrals: Cris Reyna MD [Primary Care Provider] - Diet/Activity/Treatments Diet: Regular Activity: No driving Skin/Wound/Dressing Care Report to your healthcare provider any signs of infection, such as:: chills, fever and increased pain Visit Report/Discharge Packet Instructions: Depression in Men: How Is It Different?, Drug and Alcohol Withdrawal Discharge Data Primary Care Provider: Cris Reyna
--- NOTE | 2020-11-12 13:18 | OT.IP.EVAL ---
Current Diagnoses Other specified diseases of blood and blood-forming organs (11/08/20) Alcohol dependence with withdrawal, unspecified (11/08/20) Unspecified atrial fibrillation (11/08/20) Unspecified convulsions (11/08/20) Other specified abnormal findings of blood chemistry (11/08/20) Past Medical History (Last Reviewed 11/07/20 @ 21:54 by Collins Bravo MD) Alcohol abuse Atrial fibrillation Gout HTN (hypertension) Occupational Therapy Inpatient Evaluation/Re-Eval M1 PT/OT-IP Prior Functional Status Start: 11/11/20 15:22 Freq: NEEDED Status: Active Protocol: Document 11/12/20 11:39 [facility] (Rec: 11/12/20 13:17 [facility] [id number]) Medical Review Prior Functional Status Medical History Reviewed Yes Diet/Fluid Consistency Regular Communication WFL, hx of decreased memory per chart notes Mobility and Gait Independent without device Activities of Daily Living and IADL's Independent Social History Household Members spouse Living Arrangements House Number of Floors (Floors) Two Floors Number of Stairs To Enter/Railing? Can stay on main floor of house, 3 Steps to enter, bilateral rails but can reach only one at a time. Pt states he has a flight of stairs to get to the second level where his shower is at. The 14 steps has a right hand rail and left hand rail 1/2 way up to the seconds floor. 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 M2 OT-IP Current Condition Start: 11/12/20 12:50 Freq: Status: Active Protocol: Document 11/12/20 11:39 [facility] (Rec: 11/12/20 13:17 [facility] [id number]) Occupational Therapy Current Condition Current Condition Evaluation Date 11/12/20 Treatment Diagnosis ETOH withdrawal, s/p seizure Diagnosis Onset Date 11/08/20 M3 OT- IP Subjective and Pain Start: 11/12/20 12:50 Freq: Status: Active Protocol: Document 11/12/20 11:39 [facility] (Rec: 11/12/20 13:17 [facility] [id number]) OT- Subjective Occupational Therapy Visit Type Type Initial Evaluation Visit Start Time 11:39 Visit Stop Time 12:18 Total Visit Minutes 39 Occupational Therapy Visit Comments Patient Comments Pt agreed to try to get up and work with OT. Patient/Caregiver Goals Pt now states not sure if he feels safe to go home. OT Pain Assessment Pain When Pain Assessed During Mobility Pain Present Pain Present Pain Reported M4 OT- IP ADL's Start: 11/12/20 12:50 Freq: Status: Active Protocol: Document 11/12/20 11:39 [facility] (Rec: 11/12/20 13:17 [facility] [id number]) OT [id number] Comments OT Self-Feeding Comments NOt at meal time. OT ADL-Grooming Comments OT Grooming Comments Not performed. OT ADL-Oral Care Comments Oral Care Comments Not performed due to decreased BP. OT ADL-Dressing General Eval Lower Body Dressing Ability Moderate Assistance Areas Needing Assistance Socks Comments OT Dressing Comments Pt needing MODA to help ishan his socks due to back pain when trying to bend over from the edge of the bed to ishan/ doff his socks. OT ADL-Toileting Comments OT Toileting Comments Pt did not have to go. OT ADL-Bathing Comments OT Bathing Comments Not appropriate to do at this time due to decreased BP. M5 OT- IP IADL's Start: 11/12/20 12:50 Freq: Status: Active Protocol: Document 11/12/20 11:39 [facility] (Rec: 11/12/20 13:17 [facility] [id number]) OT-Instrumental Activities of Daily Living Home Safety Awareness Ability to Problem Solve Emergency Able to Problem Solve Situations Home Safety Comments Pt able to answer all home safety situations with good accuracy. Medication Management Medication Management Comments Pt states that he often forgets to take his medications. Money Management Money Management Comments Pt states his pays the bills but not sure how. Meal Preparation Meal Preparation Comments Pt states just mainly uses the microwave for his food needs. Driving Driving Concerns Identified Regarding Safety M6 OT- IP Functional Cognition Start: 11/12/20 12:50 Freq: Status: Active Protocol: Document 11/12/20 11:39 [facility] (Rec: 11/12/20 13:17 [facility] [id number]) Cognitive Factors Limiting Selfcare Function Cognitive Ability Level of Alertness Alert Patient Orientation Name,Year Attention Span Ability Capable of Focused Attention, Capable of Sustained Attention Ability to Follow Commands Able to Follow One Step Commands Memory Description Short Term Impaired,Working Impaired Problem Solving Ability Needs Assist to Identify Solutions Cognitive Tests SLUMS Pt scored 20/30 , which is implies dementia. Pt did not know the day of the week, able to recall 2/5 words after time passed, not able to space accurately the numbers on the clock and his numbers were mainly on the right side of the clock. Pt able to answer 3 /4 questions right after a paragraph read. Cognitive Comments Cognitive Assessment Comments Pt states has been having trouble with his short term memory but has not been implementing any strategies at this time. Pt able to follow commands for mobility and ADl needs. After OT eval pt states now not sure if he feels safe to be able to care for himself. Pt does mention a friend, Gary , that maybe able to stay with him and then later on forgot what he said about his friend. OT- Vision and Hearing OT- Vision Assessment Visual Acuity Glasses For Reading Visual Attentiveness WFL Occular Pursuits WFL Visual [place] WFL Diplopia Absent M7 OT- IP Mobility and Balance Start: 11/12/20 12:50 Freq: Status: Active Protocol: Document 11/12/20 11:39 [facility] (Rec: 11/12/20 13:17 [facility] [id number]) OT- Bed Mobility Assessment Supine to Sit Supine to Sit Assist Standby Assistance OT-Transfer Assessment Sit to and From Stand Sit to and from Stand Contact Guard Assistance Comments Mobility Comments Pt only able to stand at this time due to decreased BP. Supine 73/50, sitting 63/43 , standing 65/40 and back in supine 84/59. Pt states feeling weak and unsteady when sitting and standing. Able to pass information to nursing . OT- Balance Assessment Sitting Balance and Reactions Static Sitting Balance Ability Normal Dynamic Sitting Balance Ability Good Standing Balance and Reactions Static Standing Balance Ability Fair M8 OT- IP Objective Assessments Start: 11/12/20 12:50 Freq: Status: Active Protocol: Document 11/12/20 11:39 [facility] (Rec: 11/12/20 13:17 [facility] [id number]) OT Gross Range of Motion Upper Extremity Range of Motion Assessment Within Functional Limits OT Strength Upper Extremity Strength Assessment Within Functional Limits OT- Coordination Assessment Upper Extremity Finger to Nose Test Within Functional Limits OT-Muscle Tone Assessment Muscle Tone WNL Yes M9 OT- IP Assessment and Plan Start: 11/12/20 12:50 Freq: Status: Active Protocol: Document 11/12/20 11:39 [facility] (Rec: 11/12/20 13:17 [facility] [id number]) OT Summary Assessment and Plan Potential Rehabilitation Potential Good Analytic Complexity at Evaluation Moderate Summary OT Impairments Pain,Balance,Functional Cognition,Functional Mobility, Dressing,Toileting,Bathing, Toilet Transfers,Shower Transfers,Activity Tolerance Progress Towards Goals Slow Progress due to Pain,Slow Progress due to Medical Issues,Slow Progress due to Activity Tolerance,Slow Progress due to Cognition Assessment Summary Pt MOD complexity and main barriers are low BP, steps, and would benefit from skilled rehab as pt not safe to return home alone at this time . Pt scored 20/30 on the SLUMS which implies dementia. Pending medical stability, pt to go to skilled rehab versus home with assist-24/ available assist. Goals Self-Feeding Goal Independent Grooming Goal Independent Dressing Goal Independent Toileting Goal Independent Bathing Goal Independent Toilet Transfer Goal Independent Shower Transfer Goal Independent Days to Meet Goals 10 Frequency of Treatment Frequency Of Treatment Once a Day Treatment Plan OT Treatment Plan ADL Training,Functional Cognition Training,Functional Mobility,Patient/Family Education,Discharge Planning Other Treatment Recommendations and Next shower Treatment Focus Discharge Recommendations OT Discharge Recommendations Home with 24/7 Assist Available,Home Health,SNF Rehab,Home vs SNF Transportation Needs at Discharge Wheelchair/Cabulance
--- NOTE | 2020-11-12 14:20 | PC.NURSE ---
Addendum entered by Shyla Pablo R.N. 11/12/20 15:45: Dr. Mejia returned call at 1500. See new orders, ecg obtained stat. Report given to Janee PRESSLEY who will implement same. Pt denies any c/p, diaphoresis has subsided. Cont pulse ox remains in place with o2 sats of 98% or greater. VS 101/70 HR 64, RR 18, RA sats are 96%. Original Note: Decreased blood pressure: POLO Funez reporting decreased bp at 1045 - rt bp 73/41, lt arm 74/46. Recheck 66/43. Pt did have some decreased blood pressure yesterday. RA sat is 99% or greater. Hr is 80's. Denies any c/p, dizziness or problems. Dr. Reyna called and notified of BP. Order is to give oral fluids. Started enc pt to drink fluids. Around 1200 he was seen by PT for therapy. Posturals were taken - see documented postural bp's. He has been drinking oral fluids. MD Reyna recalled to see if she would like IVF. Office will give her the message. In the mean time pt has consumed 905mls of fluid. BP has come up to 98/52, prior was 94/59. However now heart rate is staying consistently in the 40's to 50's. He is not feeling well, says he can no longer walk and he doesn't feel good. He is sl diaphoretic. Cont pulse ox has been placed. O2 sats are consistently 98%. Pt asked if he is having any pain including c/p, he denies same. Dr. Reyna's office called, notifed pt has been consuming fluids and bp is better, however heart rate is running slower and pt is reporting he feels bad, can't walk, is sl diaphoretic and denies any pain. Asked office staff to notify MD immediately and to return call.
--- NOTE | 2020-11-12 14:54 | CM.DPNOTE ---
DCP Note Reviewed chart. [facility] has declined and [facility] requires more clarity about assisted care plan. Spoke w/Dr Reyna this morning. Dr Reyna knows this patient well, explains spouse Marya lives in [place] and will not be returning here. Patient lives alone and would benefit from increased assist/observation at home vs facility placement. Patient scored a 20/[address] test [address] Reyna does not feel patient would benefit from SNF rehab for short term management but rather for assisted care needs; this BROTH MIXER explained this will not happen from this hospitalization. Furthermore, patient may not be agreeable to in home care vs facility placement. Dr Reyna has completed the DC order for home w/HH. Met w/patient, reviewed DCP. Patient does not know how he will get home. Says he can call a friend if someone assists him. Patient says he plans to quit drinking now, states he will use his will power to quit. Patient admits to driving, states he has friends drive him if he is drinking. Patient is not legally supposed to be driving. Patient asks this BROTH MIXER and why can't I drive? Patient agreeable to . Reviewed above w/Shyla, RN, this afternoon; Shyla explains patient appears to be declining clinically and she is now awaiting call from Dr Reyna to advise. Yola at [facility] has attempted contact w/patient for 2 separate referrals in the past and patient has not answered the phone. Requested [facility] attempt again and Yola agreeable. Plan: DC home w/HH is anticipated over the next 24 hrs. Might need taxi voucher to get [place] to [place]
--- NOTE | 2020-11-12 15:15 | PT-IP ANOTE ---
BUSINESS ETHICS PROFESSOR checked in with nursing prior to entering room, nurse reported BP has stabilized but his HR is concerningly elevated and requesting orders for EKG. Nurse recommended pt on hold for pm therapy tx until further medical assessments. Pt was not seen for pm tx per nursing safety recommendations. Will continue to assess progress tomorrow.
--- NOTE | 2020-11-12 15:35 | DI.RAD.S_ITS ---
PROCEDURE: XR CHEST 1V INDICATIONS: Coarse crackles TECHNIQUE: One view of the chest was acquired. COMPARISON: [facility], CR, XR CHEST 1V, 11/07/2020, 17:01. FINDINGS: Surgical changes and devices: None. Lungs and pleura: Mildly increased interstitial markings. No pleural effusions or pneumothorax. Mediastinum: Mediastinal contours appear normal. Heart size is borderline enlarged. Bones and chest wall: No suspicious bony lesions. Overlying soft tissues appear unremarkable. IMPRESSION: Mildly increased pulmonary interstitial markings with borderline cardiomegaly. Findings may represent pulmonary edema versus a pneumonitis. Dictated by: Rodolfo Grove M.D. on 11/12/2020 at 16:11 Approved by: Rodolfo Grove M.D. on 11/12/2020 at 16:13
[2020-11-12 16:09] LABS: Add Manual Diff / Slide Review NO; Basophils Absolute Auto 0 /uL (0-100); Basophils Percent Auto 0.4 % (0-2); Eosinophils Absolute Auto 100 /uL (0-450); Eosinophils Percent Auto 2.3 % (2-4); Hemoglobin 11.5 g/dL (13.5-17.5); Lymphocytes Absolute Auto 1000 /uL (1100-4500); Lymphocytes Percent Auto 17.4 % (25-40); Mean Corpuscular HGB Conc 33.9 % (30-36); Mean Corpuscular Hemoglobin 35.8 PG (26-34); Mean Corpuscular Volume 105.7 fL (80-100); Monocytes Absolute Auto 800 /uL (0-900); Monocytes Percent Auto 15.3 % (3-14); Neutrophils Absolute Auto 3600 /uL (1500-7000); Neutrophils Percent Auto 64.6 % (50-75); Platelet Count 180 X10^3/uL (150-400); Red Blood Cell Count 3.22 X10^6/uL (4.5-5.9); Red Cell Distribution Width 14.2 % (11.6-14.8); White Blood Cell Count 5.5 X10^3/uL (4.5-11.0)
[2020-11-12 16:25] LABS: BUN Creatinine Ratio 21.3 (6-22); Blood Urea Nitrogen 20 mg/dL (9-20); Calcium 8.9 mg/dL (8.4-10.2); Carbon Dioxide 30 mmol/L (22-32); Chloride 105 mmol/L (98-107); Estimated Glomerular Filt Rate > 60.0 mL/min (>60); Glucose 89 mg/dL (80-110); HEMOLYSIS < 15 (0-50); Potassium 3.9 mmol/L (3.4-5.1); Sodium 137 mmol/L (137-145)
[2020-11-12 16:33] LABS: NT-proBNP (BNP-Adult 18+) 3030 pg/mL (<125)
[2020-11-12 18:12] LABS: COVID19 - ADMIT (NP swab/PCR) Negative (Negative)
--- NOTE | 2020-11-12 18:23 | PM.EVENT ---
Event Note Date Patient Seen: 11/12/20 Time Patient Seen: 18:23 Event Note: Patient unable to be discharged today secondary to episode of hypotension after administration of morning diltiazem. Metoprolol has been held for the last 24 hours. At the time of the hypotension, felt weak but is clinically improved and blood pressure is improving, although, still not normal. Denies chest pain or shortness of breath. Chest x-ray showed possible pulmonary edema versus pneumonitis, BNP 3030. EKG showed atrial fibrillation with prolonged QT, QTc 480. Magnesium/phosphorus pending. Receiving IV Lasix now along with gentle fluid rehydration and potassium supplement. Potassium 3.9. Repeat COVID negative. Plan will be to observe overnight with telemetry and gently diurese him. Will continue telemetry and replete electrolytes as needed. Will keep potassium > 4 and Mg > 2 to protect cardiomyoctyes.
[2020-11-12] MEDS: FUROSEMIDE 40 MG/4 ML VIAL IV (18:43)
[2020-11-12] MEDS: POTASSIUM CHLORIDE IN WATER 10 MEQ/100 ML PIGGYBACK 100 MEQ IV ×2 (18:43→22:00)
[2020-11-12 18:57] LABS: Magnesium 1.7 mg/dL (1.6-2.3); Phosphorous 4.1 mg/dL (2.3-3.7)
[2020-11-13] VITALS: BP 130/81; PULSE 87; RESP 18; TEMP 36.3; O2SAT 96
[2020-11-13 04:29] VITALS: BP 140/97; PULSE 86; RESP 17; TEMP 36.2; O2SAT 98
[2020-11-13 04:59] LABS: Add Manual Diff / Slide Review NO; Basophils Absolute Auto 100 /uL (0-100); Basophils Percent Auto 1.2 % (0-2); Eosinophils Absolute Auto 200 /uL (0-450); Eosinophils Percent Auto 2.4 % (2-4); Hematocrit 34.5 % (41-53); Hemoglobin 11.7 g/dL (13.5-17.5); Lymphocytes Absolute Auto 900 /uL (1100-4500); Lymphocytes Percent Auto 14.3 % (25-40); Mean Corpuscular HGB Conc 33.8 % (30-36); Mean Corpuscular Hemoglobin 35.5 PG (26-34); Mean Corpuscular Volume 105.1 fL (80-100); Monocytes Absolute Auto 900 /uL (0-900); Monocytes Percent Auto 14.7 % (3-14); Neutrophils Absolute Auto 4300 /uL (1500-7000); Neutrophils Percent Auto 67.4 % (50-75); Platelet Count 195 X10^3/uL (150-400); Red Blood Cell Count 3.29 X10^6/uL (4.5-5.9); Red Cell Distribution Width 13.9 % (11.6-14.8); White Blood Cell Count 6.4 X10^3/uL (4.5-11.0)
[2020-11-13 05:07] LABS: Alanine Aminotransferase 34 IU/L (<50); Albumin 3.7 g/dL (3.5-5.0); Albumin Globulin Ratio 1.5 (1.0-2.8); Alkaline Phosphatase 75 U/L (38-126); Aspartate Aminotransferase 34 IU/L (17-59); BUN Creatinine Ratio 20.3 (6-22); Bilirubin Total 0.3 mg/dL (0.2-1.3); Blood Urea Nitrogen 16 mg/dL (9-20); Calcium 9.1 mg/dL (8.4-10.2); Carbon Dioxide 28 mmol/L (22-32); Chloride 106 mmol/L (98-107); Estimated Glomerular Filt Rate > 60.0 mL/min (>60); Globulin 2.5 g/dL (1.7-4.1); Glucose 83 mg/dL (80-110); HEMOLYSIS < 15 (0-50); Magnesium 1.6 mg/dL (1.6-2.3); Potassium 3.9 mmol/L (3.4-5.1); Sodium 137 mmol/L (137-145); Total Protein 6.2 g/dL (6.3-8.2)
[2020-11-13 05:08] LABS: Phosphorous 3.7 mg/dL (2.3-3.7)
[2020-11-13 05:15] LABS: NT-proBNP (BNP-Adult 18+) 2190 pg/mL (<125)
--- NOTE | 2020-11-13 07:16 | PM.PN.1 ---
Subjective Subjective Date Patient Seen: 11/13/20 Time Patient Seen: 07:17 Interval history: Patient became hypotensive yesterday morning after 09:00 diltiazem dose. Labs and EKG showed prolonged QT, atrial fibrillation and elevated BNP. Lungs noted to have crackles. CXR showed likely pulmonary edema. Discharge was cancelled and patient was gently diuresed overnight and monitored. Blood pressure has recovered this morning from 74/46 to 140/97 at 04:29. Electrolytes including magnesium and potassium are being repleted. Patient was initially a little weak and sick feeling when his blood pressure dropped, but now feels fine. Slept well overnight. Nursing reports that he became orthostatic when PT rounded on him this morning. He did say that he felt a little dizzy when that happened. At 09:00, blood pressure was low normal. Denies any chest pain or shortness of breath. Says that he doesn't want to drink anymore. Open to talking with AA sponsor. EKG this morning showed atrial fibrillation with a ventricular rate of 80 bpm. Low voltage QRS with age indeterminate inferior infarct and possible anterior infarct, similar to 09/26/19 EKG. Exam Vital Signs (past 8 hours): - 11/13/20 00:00 11/13/20 04:29 Temperature 97.3 F L 97.2 F L Pulse Rate 87 86 Respiratory Rate 18 17 Blood Pressure 130/81 140/97 H Pulse Oximetry 96 98 Oxygen Delivery Method Room Air Oxygen Flow Rate 0 Narrative Exam Narrative: GENERAL:? More alert today, oriented, appearing stated age and in no acute distress. HEENT:? Head normocephalic/atraumatic. CV:? Normal S1 and S2 with irregularly irregular rhythm, no audible murmurs, rubs or gallops. LUNGS: Good inspiratory effort with minor crackles in the bilateral bases, left greater than right. No wheezes. ABDOMEN:? Soft, non-tender, non-distended, no organomegaly.? Positive bowel sounds. EXTREMITIES:? No clubbing, cyanosis, or edema. NEURO:? Cranial nerves II through XII grossly intact, no focal deficits. PSYCH:? Alert and oriented x 3. SKIN:? No concerning lesions. Objective Labs Result Diagrams: 11/13/20 04:15 11/13/20 04:15 Labs: Laboratory Results - last 24 hr 11/12/20 11/12/2011/12/21 15:45 15:59 15:59 WBC 5.5 RBC 3.22 L Hgb 11.5 L Hct 34.0 L MCV 105.7 H MCH 35.8 H MCHC 33.9 RDW 14.2 Plt Count 180 Neut % (Auto) 64.6 Lymph % (Auto) 17.4 L Tyrrell % (Auto) 15.3 H Eos % (Auto) 2.3 Baso % (Auto) 0.4 Neut # (Auto) 3600 Lymph # (Auto) 1000 L Tyrrell # (Auto) 800 Eos # (Auto) 100 Baso # (Auto) 0 Sodium 137 Potassium 3.9 Chloride 105 Carbon Dioxide 30 BUN 20 Creatinine 0.94 Estimated GFR > 60.0 BUN/Creatinine Ratio 21.3 Glucose 89 Calcium 8.9 Phosphorus Magnesium Total Bilirubin AST ALT Alkaline Phosphatase NT-Pro-B Natriuret Pep 3030 H Total Protein Albumin Globulin Albumin/Globulin Ratio SARS-CoV-2 (PCR) Negative 11/12/20 11/13/20 11/13/20 15:59 04:15 04:15 WBC 6.4 RBC 3.29 L Hgb 11.7 L Hct 34.5 L MCV 105.1 H MCH 35.5 H MCHC 33.8 RDW 13.9 Plt Count 195 Neut % (Auto) 67.4 Lymph % (Auto) 14.3 L Tyrrell % (Auto) 14.7 H Eos % (Auto) 2.4 Baso % (Auto) 1.2 Neut # (Auto) 4300 Lymph # (Auto) 900 L Tyrrell # (Auto) 900 Eos # (Auto) 200 Baso # (Auto) 100 Sodium 137 Potassium 3.9 Chloride 106 Carbon Dioxide 28 BUN 16 Creatinine 0.79 Estimated GFR > 60.0 BUN/Creatinine Ratio 20.3 Glucose 83 Calcium 9.1 Phosphorus 4.1 H D Magnesium 1.7 1.6 Total Bilirubin 0.3 AST 34 ALT 34 Alkaline Phosphatase 75 NT-Pro-B Natriuret Pep 2190 H Total Protein 6.2 L Albumin 3.7 Globulin 2.5 Albumin/Globulin Ratio 1.5 SARS-CoV-2 (PCR) 11/13/20 04:15 WBC RBC Hgb Hct MCV MCH MCHC RDW Plt Count Neut % (Auto) Lymph % (Auto) Tyrrell % (Auto) Eos % (Auto) Baso % (Auto) Neut # (Auto) Lymph # (Auto) Tyrrell # (Auto) Eos # (Auto) Baso # (Auto) Sodium Potassium Chloride Carbon Dioxide BUN Creatinine Estimated GFR BUN/Creatinine Ratio Glucose Calcium Phosphorus 3.7 Magnesium Total Bilirubin AST ALT Alkaline Phosphatase NT-Pro-B Natriuret Pep Total Protein Albumin Globulin Albumin/Globulin Ratio SARS-CoV-2 (PCR) [facility] Medical History (Updated 11/07/20 @ 22:03 by Collins Bravo MD) Alcohol abuse Atrial fibrillation Gout HTN (hypertension) Social History marital status: household members: spouse occupational status: previously employed Smoking Status: Former smoker alcohol intake: current substance use type: does not use Assessment & Plan Assessment & Plan narrative: 1. Heart failure with preserved ejection fraction, acute, secondary to atrial fibrillation Plan: Will continue gentle lasix diuresis and trend labs. Repleting electrolytes as needed, goal potassium > 4, and magnesium > 2. Continue telemetry. Will hold on diltiazem as blood pressure still labile and orthostatic, heart rate with poor compensation. Discussed case with on-call cardiology, she agreed to hold diltiazem and not start alternative antiarrhythmic such as amiodarone or digoxin until patient is euvolemic, may possibly go back on home diltiazem. Recommended close monitoring, will check labs again at 15:00. Will update echo and cardiac enzymes. 2. Prolonged QT, acute, likely secondary to electrolyte derangement, now resolved. Plan: Telemetry, serial EKGs. Repleting electrolytes. 3.? Acute alcohol withdrawal, status post seizure -6 days since last alcohol ingestion Plan:? ? Continue CIWA protocol, has not needed coverage in the last 48 hours. 4.? Macrocytic anemia, chronic, secondary to alcoholism Plan:? Continue MV, oral folate and thiamine.? Nutrition has already consulted. 5.? Atrial fibrillation, persistent Plan:? Please see #1. Have discontinued metoprolol due to low BPs, holding diltiazem. Continue inpatient lovenox, not a candidate for AC as an outpatient due to fall risk.? 6.? Hypertension, labile Plan:? Please see #1. 7.? 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 Supportive care. 8.? Depression Plan:? Patient has been resistant to counseling and medication to date but open to speaking with his AA sponsor. He will try to reach out to him today. Dispo: ? possibly 1-2 more days Code: full MDM: Marya: [phone] DVT: lovenox Diet: Heart healthy
[2020-11-13] MEDS: FUROSEMIDE 40 MG/4 ML VIAL IV (07:46)
[2020-11-13] MEDS: POTASSIUM CHLORIDE IN WATER 10 MEQ/100 ML PIGGYBACK 100 MEQ IV ×2 (07:47→11:21)
[2020-11-13] MEDS: MAGNESIUM SULFATE 2 GM/50 ML PIGGYBACK IV (07:47)
[2020-11-13 08:00] VITALS: BP 126/84; PULSE 85; RESP 15; TEMP 36.8; O2SAT 96
--- NOTE | 2020-11-13 08:41 | PT.IPTN ---
Current Diagnoses Other specified diseases of blood and blood-forming organs (11/08/20) Alcohol dependence with withdrawal, unspecified (11/08/20) Unspecified atrial fibrillation (11/08/20) Unspecified convulsions (11/08/20) Other specified abnormal findings of blood chemistry (11/08/20) Physical Therapy Treatment Note M2 PT-IP Current Condition Start: 11/11/20 15:22 Freq: NEEDED Status: Active Protocol: Document 11/11/20 15:23 DLM (Rec: 11/11/20 15:42 DLM [id number]) Physical Therapy Current Condition Current Condition Evaluation Date 11/11/20 Treatment Diagnosis seizure, impaired gait Onset Date 11/08/20 Precautions Other Precautions ETOH precautions, seizure precautions M3 PT-IP Subjective Start: 11/11/20 15:22 Freq: NEEDED Status: Active Protocol: Document 11/13/20 08:22 SP (Rec: 11/13/20 11:31 SP [id number]) Subjective Physical Therapy Visit Type Type Treatment Note Visit Start Time 08:22 Visit Stop Time 08:41 Total Visit Minutes 19 Notes Vitals taken during tx: seated in chair: BP 134/80 HR 73 SaO2 95% on RA stand: 71/51 HR 85 seated 1 min: 88/70 HR 87 seated 2 min: 143/72 HR 112 standing post mobiltiy in room : 69/49 HR 93 seated in chair: 111/64 HR 83 Number of PLOW SHAKER Visits 2 Physical Therapy Visit Comments Patient Comments Pt alert x3 stated is Sept: aware where he is but couldn't name reasoning why here, stated yes with reminded of seizure dx. Pt willing to work with therapy Therapy Pain Assessment Pain Present Pain Present Denied Pain M4 PT-IP Mobility and Gait Start: 11/11/20 15:22 Freq: NEEDED Status: Active Protocol: Document 11/13/20 08:22 SP (Rec: 11/13/20 11:31 SP [id number]) PT-Transfer Assessment Sit to and From Stand Sit to and from Stand Standby Assistance,Use of Upper Extremities Equipment Transfer Assistive Device None,Gait Belt,Front Wheeled Walker Orthotic/Prosthetic Devices or Brace: No Transfers Transfer Destination Chair Transfer Technique pt ambulated using FWW, no AD Transfer Ability Level of Assist Standby Assistance,Contact Guard Assistance,Use of Upper Extremities Comments Mobility Comments Pt orthostatic BPs this tx. Pt able to complete sit<>stand with use of BUEs, stable during standing assessments ( see details) no LOB but reports lightheadedness initially but not when walking around room. Pt able to progress gait using FWW around room 1 lap 30 ft SBA with proper positioning and stability,then progressed no AD, CGA with slight wt shift deviations self recovery he states feels weak. Pt able to maintain stable stationary balance stationary standing front chair WBOS EC 30 sec without deviations. PLOW SHAKER did not progress gait or reassess stair mgt due to orthostatic BP. Pt had call light and all needs in reach before left. Notified nurse of orthostatic BPs mobility progress. Gait Assessment Gait Gait Assistance Required: Contact Guard Assist,1 Person Assist Distance (Feet) 60 Able to Maintain Weight Bearing Status Yes During Gait Assistive Devices Assistive Device None,Gait Belt,Front Wheeled Walker Orthotic/Prosthetic Devices or Brace: No Gait Deviations General Gait Pattern Antalgic Factors Limiting Gait Function Factors Limiting Gait Function Decreased Activity Tolerance, Decreased Strength,Pain,Poor Balance Comments Gait Comments Noted slight sway during gait no AD but self recovery, CGA. Stair Climbing Assessment Comments Stair Climbing Comments Not assessed due to orthostatic BPs. PT-Balance Assessment Sitting Balance and Reactions Static Sitting Balance Ability Normal Dynamic Sitting Balance Ability Good Standing Balance and Reactions Static Standing Balance Ability Fair Dynamic Standing Balance Ability Fair Device Used FWW, no AD WBOS Comments Other Balance Tests/Deviations/Treatment EC WBOS 30 sec no deviations. : M5 PT-IP Objective Assessments Start: 11/11/20 15:22 Freq: NEEDED Status: Active Protocol: Document 11/11/20 15:23 [facility] (Rec: 11/11/20 15:42 [facility] [id number]) Orientation Orientation/Cognition Level of Alertness Alert Orientation Name,Age,Birthday Language Function Ability Hard of Hearing Safety Awareness Decreased Safety Awareness Memory Description Short Term Impaired,Chcf Impaired Comments He is aware he is in the hospital but not sure what town at this time. He does not recall what happened to him but is aware that he had a seizure. He is intermittenly tearful during conversation. Gross Range of Motion Upper Extremity ROM Assessment Within Functional Limits Lower Extremity ROM Assessment Within Functional Limits Strength Upper Extremity Strength Shoulder 4/5 Elbow 4/5 Wrist 4/5 Hand 4/5 Lower Extremity Strength Assessment Bilaterally Impaired Hip 4/5 Knee 4/5 Ankle 4/5 Comments Strength Comments back pain with functional movements, he reports less pain when brings knees up towards chest seated in recliner Coordination Assessment Gross Coordination Gross Coordination Impaired Assessment Finger to Nose Test Minimal Impairment Foot Tapping Test Moderate Impairment Coordination Comments bradykinetic Sensation Assessment Sensation Gross Sensation WNL Comments Sensation Comments no numbness/tingling reported by pt at this time Muscle Tone Muscle Tone WNL Yes M6 PT-IP Treatment Start: 11/11/20 15:22 Freq: NEEDED Status: Active Protocol: Document 11/13/20 08:22 SP (Rec: 11/13/20 11:31 SP [id number]) Physical Therapy Treatment Education Education Provided Safety M7 PT-IP Assessment and Plan Start: 11/11/20 15:22 Freq: NEEDED Status: Active Protocol: Document 11/13/20 08:22 SP (Rec: 11/13/20 11:31 SP [id number]) PT Summary Assessment and Plan Potential Rehabilitation Potential Good Status of Condition at Evaluation Evolving Summary Impairments Pain,ROM,Strength,Balance, Coordination,Cognition,Bed Mobility,Transfers,Gait, Activity Tolerance Progress Towards Goals Progressing Toward Goals,Slow Progress due to Activity Tolerance Assessment Summary Pt medicated prior to tx. Continued orthostatic BPs with standing positioning with initial lightheadedness needing to sit. Was able to recover, assessed stand 2nd assessment and further distance gait nonsymptomatic in room SBA FWW, CGA no AD slight wt shift deviations self recovery and balance assessments EC 30 sec WBOS, stable no sway but continued decrease in BP. Did not assess stair mgt due to safety with orthostatic BPs. Pt states not really good on his feet yet and doesn't have anyone at home to help him. PLOW SHAKER recommending SNF for continued strength , balance. Will continue to assess progress. Goals Bed Mobility Goal Independent Transfer Goal Independent,Crutches,Front Wheeled Walker Gait Goal Independent,Front Wheel Walker Gait Distance 300 feet Other Goals Up and down 3 steps with rail and SBA Days to Meet Goals 7 Frequency of Treatment Frequency Of Treatment Twice a Day Treatment Plan Physical Therapy Treatment Plan Bed Mobility Training,Transfer Training,Gait Training, Therapeutic Exercise,Balance Retraining,Discharge Planning, Hot or Cold Pack,Neuromuscular Re-ed,Coordination Retraining Other Recommendations and Next Treatment check vitals, progress gait Focus LRAD and stair mgt prior to DC if safe vitals. Recommendations To Nursing Amount of Assist Needed 1 Person Assist Discharge Recommendations PT Discharge Recommendations Home with 24/ Assist Available,Home Health,SNF Rehab Equipment Needed for Home Before pt owns a FWW Discharge Transportation Needs at Discharge Private Vehicle
[2020-11-13] MEDS: SODIUM CHLORIDE 0.9% FLUSH 10 ML IV ×2 (09:06→20:47)
[2020-11-13] MEDS: POTASSIUM CHLORIDE IN WATER 10 MEQ/100 ML PIGGYBACK 70 MEQ IV (09:06)
[2020-11-13] MEDS: ENOXAPARIN 40 MG/0.4 ML SYRINGE SUBCUT (09:06)
[2020-11-13] MEDS: MULTIVITAMIN 1 TABLET 1 TAB PO (09:06)
[2020-11-13] MEDS: FOLIC ACID 1 MG TABLET PO (09:06)
--- NOTE | 2020-11-13 09:35 | OT.IP.TRT ---
Current Diagnoses Other specified diseases of blood and blood-forming organs (11/08/20) Alcohol dependence with withdrawal, unspecified (11/08/20) Unspecified atrial fibrillation (11/08/20) Unspecified convulsions (11/08/20) Other specified abnormal findings of blood chemistry (11/08/20) Occupational Therapy Treatment Note M2 OT-IP Current Condition Start: 11/12/20 12:50 Freq: Status: Active Protocol: Document 11/12/20 11:39 [facility] (Rec: 11/12/20 13:17 [facility] [id number]) Occupational Therapy Current Condition Current Condition Evaluation Date 11/12/20 Treatment Diagnosis ETOH withdrawl, s/p seizure Diagnosis Onset Date 11/08/20 M3 OT- IP Subjective and Pain Start: 11/12/20 12:50 Freq: Status: Active Protocol: Document 11/13/20 10:38 [facility] (Rec: 11/13/20 10:45 [facility] [id number]) OT- Subjective Occupational Therapy Visit Type Type Treatment Note Visit Start Time 09:20 Visit Stop Time 09:35 Total Visit Minutes 15 Occupational Therapy Visit Comments Patient Comments Pt wanting to use the bathroom and take a shower. OT Pain Assessment Pain When Pain Assessed At Rest Pain Present Pain Present Denied Pain M4 OT- IP ADL's Start: 11/12/20 12:50 Freq: Status: Active Protocol: Document 11/13/20 10:38 [facility] (Rec: 11/13/20 10:45 [facility] [id number]) OT [id number] Comments OT Self-Feeding Comments NOt at meal time. OT ADL-Grooming General Evaluation Grooming Ability Independent OT ADL-Oral Care General Eval Oral Care Ability Independent OT ADL-Toileting General Evaluation Toileting Ability Standby Assistance OT ADL-Bathing Comments OT Bathing Comments Pt initially wanting to shower but then not feeling well and wanting to wait until later. M5 OT- IP IADL's Start: 11/12/20 12:50 Freq: Status: Active Protocol: Document 11/12/20 11:39 [facility] (Rec: 11/12/20 13:17 [facility] [id number]) OT-Instrumental Activities of Daily Living Home Safety Awareness Ability to Problem Solve Emergency Able to Problem Solve Situations Home Safety Comments Pt able to answer all home safety situations with good accuracy. Medication Management Medication Management Comments Pt states that he often forgets to take his medications. Money Management Money Management Comments Pt states his pays the bills but not sure how. Meal Preparation Meal Preparation Comments Pt states just mainly uses the microwave for his food needs. Driving Driving Concerns Identified Regarding Safety M6 OT- IP Functional Cognition Start: 11/12/20 12:50 Freq: Status: Active Protocol: Document 11/13/20 10:38 [facility] (Rec: 11/13/20 10:45 [facility] [id number]) Cognitive Factors Limiting Selfcare Function Cognitive Comments Cognitive Assessment Comments Pt needing reminders to bring the FWW with him from the sink to the recliner. M7 OT- IP Mobility and Balance Start: 11/12/20 12:50 Freq: Status: Active Protocol: Document 11/13/20 10:38 [facility] (Rec: 11/13/20 10:45 [facility] [id number]) OT-Transfer Assessment Sit to and From Stand Sit to and from Stand Standby Assistance Transfers Transfer Ability Standby Assistance Technique Transfer Destination Bed,Chair,Toilet Transfer Technique Stand Step Pivot Devices Transfer Assistive Devices Gait Belt,Front Wheeled Walker Comments Mobility Comments Pt BP 76/52 while seated. Pt SBA with FWW use in the room. Have pt walk without device from recliner to bed and was close SBA. Pt states feeling weak and not back to baseline for feeling steady on his feet . OT- Balance Assessment Sitting Balance and Reactions Static Sitting Balance Ability Normal Dynamic Sitting Balance Ability Good Standing Balance and Reactions Static Standing Balance Ability Fair Comments Other Balance Tests/Deviations/Treatment Pt needign wider base of : support on his feet without a device when not using FWW. M8 OT- IP Objective Assessments Start: 11/12/20 12:50 Freq: Status: Active Protocol: Document 11/12/20 11:39 [facility] (Rec: 11/12/20 13:17 [facility] [id number]) OT Gross Range of Motion Upper Extremity Range of Motion Assessment Within Functional Limits OT Strength Upper Extremity Strength Assessment Within Functional Limits OT- Coordination Assessment Upper Extremity Finger to Nose Test Within Functional Limits OT-Muscle Tone Assessment Muscle Tone WNL Yes M9 OT- IP Assessment and Plan Start: 11/12/20 12:50 Freq: Status: Active Protocol: Document 11/13/20 10:38 [facility] (Rec: 11/13/20 10:45 [facility] [id number]) OT Summary Assessment and Plan Potential Rehabilitation Potential Good Analytic Complexity at Evaluation Moderate Summary OT Impairments Pain,Balance,Functional Cognition,Functional Mobility, Dressing,Toileting,Bathing, Toilet Transfers,Shower Transfers,Activity Tolerance Progress Towards Goals Slow Progress due to Medical Issues,Slow Progress due to Activity Tolerance,Slow Progress due to Cognition Assessment Summary Pt initially wanting to shower but after coming back to see pt states not feeling well. Pt was SBA with FWW in the room , however stil feeling weak and unsteady on his feet especially without the FWW. Pt BP was at 76/52 while seated. Pt would benefit from skilled rehab prior to going home. Goals Self-Feeding Goal Independent Grooming Goal Independent Dressing Goal Independent Toileting Goal Independent Bathing Goal Independent Toilet Transfer Goal Independent Shower Transfer Goal Independent Days to Meet Goals 10 Frequency of Treatment Frequency Of Treatment Once a Day Treatment Plan OT Treatment Plan ADL Training,Functional Cognition Training,Functional Mobility,Patient/Family Education,Discharge Planning Other Treatment Recommendations and Next shower Treatment Focus Discharge Recommendations OT Discharge Recommendations Home with 24/7 Assist Available,Home Health,SNF Rehab,Home vs SNF Transportation Needs at Discharge Private Vehicle,Wheelchair/ Cabulance
--- NOTE | 2020-11-13 09:48 | DI.ECHO.S_ITS ---
[place] [facility]---------+ [facility] +---------+ : : [address] : [address] : : : : [id number] : : : : Phone: [phone]+ Echocardiogram Report + + :Name: YVETTE MASTERS Study Date: 11/13/2020 Height: 69 in : :[facility] ReadingLocation: Weight: 161 lb : : Gender: Male BSA: 1.9 m2 : :: 1945 Age: 75 yrs BP: 140/97 mmHg: :Reason For Study: Abnormal ECG : :Ordering Physician: MARK, : :ANGIE Performed By: Gee Fregoso : :Referring: ANGIE FLORES : + + Interpretation Summary The left ventricle is normal in size and wall thickness. Left ventricular ejection fraction is estimated to be 55 +/- 5%. There has been no significant change in LVEF since the previous exam. The right ventricle is normal in size and function. No significant valvular pathology seen. The IVC is of normal diameter and collapses greater than 50% with a sniff. This suggests a low right atrial pressure of 3 mm Hg. Procedure: A two-dimensional transthoracic echocardiogram with color flow and Doppler was performed. The study quality was technically adequate. Comparison is made with the echocardiogram of 09/05/2020. The patient was in atrial fibrillation with controlled ventricular rate during the exam. Left Ventricle: The left ventricle is normal in size and wall thickness. There is no thrombus. Left ventricular systolic function is normal. Left ventricular ejection fraction is estimated to be 55 +/- 5%. There has been no significant change since the previous exam. There are no focal wall motion abnormalities. Diastolic function could not be accurately assessed due to atrial fibrillation. Right Ventricle: The right ventricle is normal in size and function. Atria: The left atrium is severely dilated. The left atrium has remained unchanged in size since the prior echo exam. The right atrium is moderately dilated. The right atrium has remained unchanged in size since the prior echo exam. There is no Doppler evidence for an interatrial shunt. Mitral Valve: There is mild mitral annular calcification. There is mild mitral regurgitation. There has been no significant change since the previous study. Aortic Valve: There is mild aortic valve sclerosis. The aortic valve is trileaflet. There is no aortic valve stenosis. No aortic regurgitation is present. Tricuspid Valve: The tricuspid valve is normal in structure and function. There is trace tricuspid regurgitation. Pulmonary artery pressures cannot be estimated because of the lack of a measurable TR jet velocity but the IVC suggests a CVP of around 3 mmHg. Compared to the prior echo exam, there has been a decrease in TR severity. Pulmonic Valve: The pulmonic valve is normal in structure and function. There is mild pulmonic regurgitation. Great Vessels: The aortic root is normal size. The dimensions of the ascending aorta are normal. The IVC is of normal diameter and collapses greater than 50% with a sniff. This suggests a low right atrial pressure of 3 mm Hg. Pericardium/ Pleura There is no pericardial effusion. There is no pleural effusion. MMode/2D Measurements & Calculations LVIDd: 4.5 cm LVOT diam: 2.2 cm LVIDs: 3.1 cm Ao root diam: 3.1 cm FS: 30.7 % asc Aorta Diam: 3.1 cm IVSd: 0.88 cm LVPWd: 1.0 cm LV haas. diameter/BSA (cm/m^2): 2.4 LV sys. diameter/BSA (cm/m^2): 1.6 LA A2 area: 26.2 cm2 RA long axis: 6.1 cm LA A4 area: 30.6 cm2 RA area: 22.7 cm2 LA length (vol): 6.4 cm RA vol: 72.0 ml LA vol: 106.4 ml RA : 38.2 ml/m2 LA vol index: 56.5 ml/m2 TAPSE: 2.0 cm Doppler Measurements & Calculations Ao V2 max: 132.9 cm/sec LVOT Max Sharath: 73.4 cm/sec Ao V2 mean: 90.0 cm/sec LV V1 max P.2 mmHg Ao max P.1 mmHg LV V1 VTI: 14.1 cm Ao mean P.6 mmHg MATIAS(I,D): 2.6 cm2 Ao V2 VTI: 21.4 cm MATIAS(V,D): 2.2 cm2 sev ratio: 0.66 MATIAS indexed to BSA (cm^2/m^2): 1.4 SV(LVOT): 55.0 ml Reading Physician:01:51 PM
[2020-11-13 11:33] VITALS: BP 108/77; PULSE 88; RESP 20; TEMP 36.6; O2SAT 97
--- NOTE | 2020-11-13 12:30 | CM.DPNOTE ---
DCP Updated Patient now requiring additional medical management. Dr Reyna requests continued SNF search for short term rehab. Patient and spouse Marya Porter ([place]) agreeable P# [phone] Requested that JOSIAS Rodriguez, broaden SNF search on patient's behalf Reviewed this referral w/July at [facility]. July will need to discuss with her administrative team and will not have an answer today Following closely for coordination of the safest DCP available to patient. TUCKER
[2020-11-13] MEDS: POTASSIUM CHLORIDE IN WATER 10 MEQ/100 ML PIGGYBACK 50 MEQ IV (12:53)
--- NOTE | 2020-11-13 14:08 | PT-IP ANOTE ---
Per HUAN Pina, pt is not doing well has been up and down using bathroom, please hold and check back on pt tomorrow.
--- NOTE | 2020-11-13 14:27 | CM.DPNOTE ---
Addendum entered by Clarisa Castroniewski JEROME 11/14/20 14:17: ADD: [place] ([facility]) no, [facility] no, [facility]- need to complete onsite Monday, [facility]- reviewing still Spoke w/Dr Ambrose this morning, updated no SNF secured at this time. Per Halie, patient is not appropriate for a DC to home today. Requests SNF search continue. JW Original Note: At Rachael's request faxed SNF referral packet to [facility] [place], [facility], [facility], [facility], [facility], [facility], [facility], [facility], [facility]. Jennifer Mccallum CM Asst.
[2020-11-13 15:31] VITALS: BP 111/64; PULSE 83; RESP 18; TEMP 36.2; O2SAT 97
[2020-11-13 16:28] LABS: Blood Urea Nitrogen 17 mg/dL (9-20); Carbon Dioxide 28 mmol/L (22-32); Chloride 102 mmol/L (98-107); Estimated Glomerular Filt Rate > 60.0 mL/min (>60); Glucose 127 mg/dL (80-110); HEMOLYSIS 29 (0-50); Phosphorous 4.1 mg/dL (2.3-3.7); Potassium 4.2 mmol/L (3.4-5.1); Sodium 137 mmol/L (137-145)
[2020-11-13 16:37] LABS: NT-proBNP (BNP-Adult 18+) 1940 pg/mL (<125)
[2020-11-13 16:40] LABS: Troponin I < 0.012 ng/mL (0.01-0.034)
[2020-11-13] MEDS: CYANOCOBALAMIN 1,000 MCG/ML VIAL 1000 MCG SUBCUT (17:03)
[2020-11-13 19:08] LABS: Troponin I < 0.012 ng/mL (0.01-0.034)
[2020-11-13 19:11] VITALS: BP 137/99; PULSE 74; RESP 18; TEMP 36.1; O2SAT 98
[2020-11-14] VITALS: BP 128/83; PULSE 84; RESP 17; TEMP 37; O2SAT 97
[2020-11-14] MEDS: ACETAMINOPHEN 325 MG TABLET PO ×2 (02:02→11:25)
[2020-11-14 04:00] VITALS: BP 121/78; PULSE 82; RESP 17; TEMP 36.8; O2SAT 96
[2020-11-14 06:47] LABS: Add Manual Diff / Slide Review NO; Basophils Absolute Auto 100 /uL (0-100); Basophils Percent Auto 1.4 % (0-2); Eosinophils Absolute Auto 100 /uL (0-450); Eosinophils Percent Auto 1.8 % (2-4); Hematocrit 34.5 % (41-53); Hemoglobin 11.7 g/dL (13.5-17.5); Lymphocytes Absolute Auto 900 /uL (1100-4500); Lymphocytes Percent Auto 12.4 % (25-40); Mean Corpuscular HGB Conc 33.9 % (30-36); Mean Corpuscular Hemoglobin 35.4 PG (26-34); Mean Corpuscular Volume 104.6 fL (80-100); Monocytes Absolute Auto 1200 /uL (0-900); Monocytes Percent Auto 15.8 % (3-14); Neutrophils Absolute Auto 5000 /uL (1500-7000); Neutrophils Percent Auto 68.6 % (50-75); Platelet Count 226 X10^3/uL (150-400); Red Cell Distribution Width 13.6 % (11.6-14.8); White Blood Cell Count 7.4 X10^3/uL (4.5-11.0)
[2020-11-14 07:23] LABS: Alanine Aminotransferase 30 IU/L (<50); Albumin 3.5 g/dL (3.5-5.0); Albumin Globulin Ratio 1.5 (1.0-2.8); Alkaline Phosphatase 78 U/L (38-126); Aspartate Aminotransferase 30 IU/L (17-59); BUN Creatinine Ratio 22.9 (6-22); Bilirubin Total 0.3 mg/dL (0.2-1.3); Blood Urea Nitrogen 19 mg/dL (9-20); Carbon Dioxide 25 mmol/L (22-32); Chloride 105 mmol/L (98-107); Estimated Glomerular Filt Rate > 60.0 mL/min (>60); Globulin 2.3 g/dL (1.7-4.1); Glucose 86 mg/dL (80-110); HEMOLYSIS < 15 (0-50); Magnesium 1.8 mg/dL (1.6-2.3); Phosphorous 3.6 mg/dL (2.3-3.7); Potassium 4.6 mmol/L (3.4-5.1); Sodium 136 mmol/L (137-145); Total Protein 5.8 g/dL (6.3-8.2)
[2020-11-14 07:30] LABS: NT-proBNP (BNP-Adult 18+) 2120 pg/mL (<125)
[2020-11-14] MEDS: CYANOCOBALAMIN 1,000 MCG/ML VIAL 1000 MCG SUBCUT (08:43)
[2020-11-14] MEDS: FOLIC ACID 1 MG TABLET PO (08:44)
[2020-11-14] MEDS: MULTIVITAMIN 1 TABLET 1 TAB PO (08:44)
[2020-11-14] MEDS: ENOXAPARIN 40 MG/0.4 ML SYRINGE SUBCUT (08:44)
[2020-11-14] MEDS: SODIUM CHLORIDE 0.9% FLUSH 10 ML IV ×2 (08:45→21:25)
[2020-11-14 09:41] VITALS: BP 102/67; PULSE 82; RESP 18; TEMP 37.2
--- NOTE | 2020-11-14 10:25 | PM.PN.1 ---
Subjective Subjective Date Patient Seen: 11/14/20 Time Patient Seen: 10:25 Interval history: Patient seen in follow-up for multiple issues in regard to his heart failure alcohol withdrawal and weakness. No other changes. No chest pain. No shortness of breath. Patient fatigued. Concerned about his ability to function as he goes home. Complaining of back pain. Mostly in his bilateral back. No radiation. No other changes. Exam Vital Signs (past 8 hours): - 11/14/20 04:00 11/14/20 09:41 Temperature 98.3 F 98.9 F Pulse Rate 82 82 Respiratory Rate 17 18 Blood Pressure 121/78 102/67 Pulse Oximetry 96 Oxygen Delivery Method Room Air Oxygen Flow Rate 0 Narrative Exam Narrative: Fatigued-appearing elderly male Mucous membranes moist. Neck supple without adenopathy. Lungs are clear. Heart irregular rate and rhythm. Abdomen is soft positive bowel sounds nontender. No other significant changes. Extremities without edema neurologic exam is unremarkable Objective Labs Result Diagrams: 11/14/20 06:20 11/14/20 05:00 Labs: Laboratory Results - last 24 hr 11/13/20 11/13/20 11/13/20 16:08 16:08 16:08 WBC RBC Hgb Hct MCV MCH MCHC RDW Plt Count Neut % (Auto) Lymph % (Auto) [place] % (Auto) Eos % (Auto) Baso % (Auto) Neut # (Auto) Lymph # (Auto) [place] # (Auto) Eos # (Auto) Baso # (Auto) Sodium 137 Potassium 4.2 Chloride 102 Carbon Dioxide 28 BUN 17 Creatinine 1.00 Estimated GFR > 60.0 BUN/Creatinine Ratio 17.0 Glucose 127 H Calcium 9.0 Phosphorus 4.1 H Magnesium 2.0 Total Bilirubin AST ALT Alkaline Phosphatase Troponin I < 0.012 NT-Pro-B Natriuret Pep 1940 H Total Protein Albumin Globulin Albumin/Globulin Ratio 11/13/20 11/14/20 11/14/20 18:33 05:00 06:20 WBC 7.4 RBC 3.30 L Hgb 11.7 L Hct 34.5 L MCV 104.6 H MCH 35.4 H MCHC 33.9 RDW 13.6 Plt Count 226 Neut % (Auto) 68.6 Lymph % (Auto) 12.4 L [place] % (Auto) 15.8 H Eos % (Auto) 1.8 L Baso % (Auto) 1.4 Neut # (Auto) 5000 Lymph # (Auto) 900 L [place] # (Auto) 1200 H Eos # (Auto) 100 Baso # (Auto) 100 Sodium 136 L Potassium 4.6 Chloride 105 Carbon Dioxide 25 BUN 19 Creatinine 0.83 Estimated GFR > 60.0 BUN/Creatinine Ratio 22.9 H Glucose 86 Calcium 9.0 Phosphorus 3.6 Magnesium 1.8 Total Bilirubin 0.3 AST 30 ALT 30 Alkaline Phosphatase 78 Troponin I < 0.012 NT-Pro-B Natriuret Pep 2120 H Total Protein 5.8 L Albumin 3.5 Globulin 2.3 Albumin/Globulin Ratio 1.5 [facility] Medical History (Updated 11/07/20 @ 22:03 by Collins Bravo MD) Alcohol abuse Atrial fibrillation Gout HTN (hypertension) Social History marital status: household members: spouse occupational status: previously employed Smoking Status: Former smoker alcohol intake: current substance use type: does not use Assessment & Plan Assessment & Plan narrative: Heart failure with preserved ejection fracture acute secondary to alcohol intoxications and atrial for fibrillation. Certainly at this point is alcohol intoxication is dealt with. Least for the short term. His atrial fibrillation is currently been controlled rate although he is not tolerating his Cardizem. I think we need to see how his blood pressure does over the next 24 hours it is unclear what that means exactly. Certainly is going to be very difficult to add a medication at rate control without dropping his blood pressure would like to see his blood pressure up before we reinstitute his Cardizem. Would hold on his metoprolol. Certainly a risk for him to recur especially if he starts drinking again. He understands questions answered will see what next 24 hour does. Will hold his Cardizem for now. Prolonged QT. has resolved. Will follow. Acute alcohol withdrawal status post seizures. This relieves the biggest issue. His biggest risk if he goes home. Patient states he wants to quit and this the 1st time he has wanted to do that. But he is reluctant to talk to his AA sponsor he really has not been take a a not even sure if his sponsor is in alcoholics anonymous. Being the fact that he is going home alone I think it is high risk that he is going to recur. Will discuss getting an alcoholics anonymous member in to visit with him today. He was borderline but maybe I can discuss this with him. If not certainly getting some time between him and going home would be good I think. Macrocytic anemia. Secondary to his alcoholism. On multivitamin. No other change. Will follow. Atrial fibrillation. Currently under control. Blood pressures have been low were going to have to watch and see how things go. On Lovenox. I think he is high risk for outpatient anticoagulation and would not recommend secondary to drinking and fall risk and inability take medication as prescribed. Hypertension. At this point not an issue. Will follow. Dementia. Probably secondary to his alcohol intake although it is unclear. Will need to follow. As his follow-up as an outpatient has been poor. Depression. Probably secondary to his alcohol withdrawal will have to watch. Weakness. Primary issue at this time. Patient is going to have to go home by himself and appears to be a difficult situation. Disposition. We have some things we need to follow at this time. As inpatient but I think at this time is discharged home to self-care. I think this is going to be a setup for return to hospital a very quick order secondary to his risk for drinking and his inability to care for himself at home due to his weakness and current status. Difficult position. Discussed with patient about possible rehab [facility] type referral and I think that would be an excellent choice until he gets his strength enough to really be 0 to care for himself. I do not see himself being able to do all of his ADLs in cooking cleaning. Certainly contrast in go to the bathroom I think those are some that he is capable of but the rest of it is very difficult to see him doing. Discussed with director of social work and they will review and evaluate for possible nursing placement. Re-evaluate in a.m.. Greater than 30 minutes spent on floor with care coordinating care. Time Spent With Patient Critical Care time: I spent a total of [] minutes of critical care time on this patient's care today; this time is exclusive of procedural time.
--- NOTE | 2020-11-14 11:15 | PT-IP ANOTE ---
Addendum entered and electronically signed by Jayashree Orantes, CERTIFIED NURSING ATTENDANT 11/14/20 11:48: 905 Per RN hold off on pt until he has had morning meds due to back pain. Will check back on pt later this morning. Original Note: 1115: Pt refused stating he would like to take pain meds before ambulation. RN giving meds now. Will check back with pt.
[2020-11-14 12:56] VITALS: BP 96/65; PULSE 84; RESP 14; TEMP 36.5; O2SAT 95
--- NOTE | 2020-11-14 14:18 | PT.IPTN ---
Current Diagnoses Other specified diseases of blood and blood-forming organs (11/08/20) Alcohol dependence with withdrawal, unspecified (11/08/20) Unspecified atrial fibrillation (11/08/20) Unspecified convulsions (11/08/20) Other specified abnormal findings of blood chemistry (11/08/20) Physical Therapy Treatment Note M2 PT-IP Current Condition Start: 11/11/20 15:22 Freq: NEEDED Status: Active Protocol: Document 11/11/20 15:23 DLM (Rec: 11/11/20 15:42 DLM [id number]) Physical Therapy Current Condition Current Condition Evaluation Date 11/11/20 Treatment Diagnosis seizure, impaired gait Onset Date 11/08/20 Precautions Other Precautions ETOH precautions, seizure precautions M3 PT-IP Subjective Start: 11/11/20 15:22 Freq: NEEDED Status: Active Protocol: Document 11/14/20 13:53 CLB (Rec: 11/14/20 15:33 CLB [id number]) Subjective Physical Therapy Visit Type Type Treatment Note Visit Start Time 13:53 Visit Stop Time 14:18 Total Visit Minutes 25 Number of BOX STAMPER Visits 3 Physical Therapy Visit Comments Patient Comments Pt agreeable to ambulate in mas. Therapy Pain Assessment Pain When Pain Assessed At Rest Pain Present Pain Present Denied Pain M4 PT-IP Mobility and Gait Start: 11/11/20 15:22 Freq: NEEDED Status: Active Protocol: Document 11/14/20 13:53 CLB (Rec: 11/14/20 15:33 CLB [id number]) PT-Bed Mobility Assessment Rolling Type of Rolling Log Rolling,Roll to Left Supine to Sit Supine to Sit Contact Guard Assistance,1 Person Assistance Scooting Scooting to Edge of Bed Independent PT-Transfer Assessment Sit to and From Stand Sit to and from Stand Contact Guard Assistance,1 Person Assistance,Use of Upper Extremities Equipment Transfer Assistive Device Gait Belt,Front Wheeled Walker Orthotic/Prosthetic Devices or Brace: No Transfers Transfer Destination Chair Transfer Technique ambulated with FWW Transfer Ability Level of Assist Contact Guard Assistance,1 Person Assistance,Use of Upper Extremities Comments Mobility Comments Pt able to ishan lounge pants. Pt stood CGA, pt ambulated without c/o dizziness ~80ft w/ FWW/CGA and cues for staying close to walker to decrease fall risk and back pain. Pt returned to room with BP 91/52 in standing, 117/69 in sitting.Pt left in chair with alarm on and all needs within reach. RN informed of BP. Gait Assessment Gait Gait Assistance Required: Contact Guard Assist,1 Person Assist Distance (Feet) 80 Able to Maintain Weight Bearing Status Yes During Gait Assistive Devices Assistive Device Gait Belt,Front Wheeled Walker Orthotic/Prosthetic Devices or Brace: No Gait Deviations General Gait Pattern Decreased Stride Length Factors Limiting Gait Function Factors Limiting Gait Function Decreased Activity Tolerance, Decreased Strength,Pain,Poor Balance PT-Balance Assessment Sitting Balance and Reactions Static Sitting Balance Ability Normal Dynamic Sitting Balance Ability Good Standing Balance and Reactions Static Standing Balance Ability Fair Dynamic Standing Balance Ability Fair Device Used FWW M5 PT-IP Objective Assessments Start: 11/11/20 15:22 Freq: NEEDED Status: Active Protocol: Document 11/11/20 15:23 DLM (Rec: 11/11/20 15:42 DLM [id number]) Orientation Orientation/Cognition Level of Alertness Alert Orientation Name,Age,Birthday Language Function Ability Hard of Hearing Safety Awareness Decreased Safety Awareness Memory Description Short Term Impaired,Custodial Impaired Comments He is aware he is in the hospital but not sure what town at this time. He does not recall what happened to him but is aware that he had a seizure. He is intermittenly tearful during conversation. Gross Range of Motion Upper Extremity ROM Assessment Within Functional Limits Lower Extremity ROM Assessment Within Functional Limits Strength Upper Extremity Strength Shoulder 4/5 Elbow 4/5 Wrist 4/5 Hand 4/5 Lower Extremity Strength Assessment Bilaterally Impaired Hip 4/5 Knee 4/5 Ankle 4/5 Comments Strength Comments back pain with functional movements, he reports less pain when brings knees up towards chest seated in recliner Coordination Assessment Gross Coordination Gross Coordination Impaired Assessment Finger to Nose Test Minimal Impairment Foot Tapping Test Moderate Impairment Coordination Comments bradykinetic Sensation Assessment Sensation Gross Sensation WNL Comments Sensation Comments no numbness/tingling reported by pt at this time Muscle Tone Muscle Tone WNL Yes M6 PT-IP Treatment Start: 11/11/20 15:22 Freq: NEEDED Status: Active Protocol: Document 11/13/20 08:22 SP (Rec: 11/13/20 11:31 SP [id number]) Physical Therapy Treatment Education Education Provided Safety M7 PT-IP Assessment and Plan Start: 11/11/20 15:22 Freq: NEEDED Status: Active Protocol: Document 11/14/20 13:53 CLB (Rec: 11/14/20 15:33 CLB [id number]) PT Summary Assessment and Plan Potential Rehabilitation Potential Good Status of Condition at Evaluation Evolving Summary Impairments Pain,ROM,Strength,Balance, Coordination,Cognition,Bed Mobility,Transfers,Gait, Activity Tolerance Progress Towards Goals Progressing Toward Goals,Slow Progress due to Activity Tolerance Assessment Summary Pt increased gait distance to ~80ft w/FWW/CGA. Pt without c/ o dizziness BP remain low during tx with ambulation. Pt will benefit from SNF rehab to improve strength for activity tolerance and functional mobility. Goals Bed Mobility Goal Independent Transfer Goal Independent,Crutches,Front Wheeled Walker Gait Goal Independent,Front Wheel Walker Gait Distance 300 feet Other Goals Up and down 3 steps with rail and SBA Days to Meet Goals 7 Frequency of Treatment Frequency Of Treatment Twice a Day Treatment Plan Physical Therapy Treatment Plan Bed Mobility Training,Transfer Training,Gait Training, Therapeutic Exercise,Balance Retraining,Discharge Planning, Hot or Cold Pack,Neuromuscular Re-ed,Coordination Retraining Other Recommendations and Next Treatment check vitals, progress gait Focus LRAD and stair mgt prior to DC if safe vitals. Recommendations To Nursing Amount of Assist Needed 1 Person Assist Discharge Recommendations PT Discharge Recommendations Home with 05/09 Assist Available,Home Health,SNF Rehab Equipment Needed for Home Before pt owns a FWW Discharge Transportation Needs at Discharge Private Vehicle
--- NOTE | 2020-11-14 15:20 | OT.IP.TRT ---
Current Diagnoses Other specified diseases of blood and blood-forming organs (11/08/20) Alcohol dependence with withdrawal, unspecified (11/08/20) Unspecified atrial fibrillation (11/08/20) Unspecified convulsions (11/08/20) Other specified abnormal findings of blood chemistry (11/08/20) Occupational Therapy Treatment Note M2 OT-IP Current Condition Start: 11/12/20 12:50 Freq: Status: Active Protocol: Document 11/12/20 11:39 [facility] (Rec: 11/12/20 13:17 [facility] [id number]) Occupational Therapy Current Condition Current Condition Evaluation Date 11/12/20 Treatment Diagnosis ETOH withdrawal, s/p seizure, heart failure Diagnosis Onset Date 11/08/20 M3 OT- IP Subjective and Pain Start: 11/12/20 12:50 Freq: Status: Active Protocol: Document 11/14/20 15:25 [facility] (Rec: 11/14/20 15:48 [facility] [id number]) OT- Subjective Occupational Therapy Visit Type Type Treatment Note Visit Start Time 14:40 Visit Stop Time 15:20 Total Visit Minutes 40 Occupational Therapy Visit Comments Patient Comments Pt sitting in the recliner and did not recall if he had a shower yesterday but wanting to shower. OT Pain Assessment Pain When Pain Assessed During Mobility Pain Present Pain Present Pain Reported M4 OT- IP ADL's Start: 11/12/20 12:50 Freq: Status: Active Protocol: Document 11/14/20 15:25 [facility] (Rec: 11/14/20 15:48 [facility] [id number]) OT [id number] Comments OT Self-Feeding Comments NOt at meal time. OT ADL-Grooming General Evaluation Grooming Ability Independent OT ADL-Dressing General Eval Lower Body Dressing Ability Moderate Assistance Comments OT Dressing Comments Pt needing assist to pull up brief over his hips. OT ADL-Toileting Comments OT Toileting Comments Pt able to appropriately wipe on his own. OT ADL-Bathing Comments OT Bathing Comments Pt initially wanting to shower but then feeling too tired after having a bowel movement and wanting to lie back down in bed. M6 OT- IP Functional Cognition Start: 11/12/20 12:50 Freq: Status: Active Protocol: Document 11/14/20 15:25 [facility] (Rec: 11/14/20 15:48 [facility] [id number]) Cognitive Factors Limiting Selfcare Function Cognitive Ability Level of Alertness Alert Patient Orientation Name,Year Attention Span Ability Capable of Focused Attention, Capable of Sustained Attention Ability to Follow Commands Able to Follow One Step Commands Memory Description Short Term Impaired,Finance Broker Impaired,Working Impaired Problem Solving Ability Needs Assist to Identify Solutions Cognitive Comments Cognitive Assessment Comments Pt not able to recall whether he showered or not yesterday. Pt needing cues to keep the FWW in front of him to use for safety. Pt's brother called and pt states to call him back but not remembering that he does not know his phone number to call him back. Pt able to problem solve may have to call his to figure out his brother's number. Able to let nursing know of pt's request to call his brother back. M7 OT- IP Mobility and Balance Start: 11/12/20 12:50 Freq: Status: Active Protocol: Document 11/14/20 15:25 [facility] (Rec: 11/14/20 15:48 [facility] [id number]) OT- Bed Mobility Assessment Supine to Sit Supine to Sit Assist Standby Assistance OT-Transfer Assessment Sit to and From Stand Sit to and from Stand Standby Assistance Transfers Transfer Ability Standby Assistance Technique Transfer Destination Bed,Chair,Toilet Transfer Technique Stand Step Pivot Devices Transfer Assistive Devices None,Gait Belt,Front Wheeled Walker Comments Mobility Comments Pt SBA and vc to keep the FWW close to him to get to the toilet and then not able to go and came back to be and was 115/73. Pt urgency to go to the bathroom again and walked in without the walker with wide base of support and close SBA to CGA . Able to have a bowel movement and BP when back to bed 125/70. OT- Gait Assessment Comments Gait Ability Comments CGA/close SBA without the FWW and SBA with FWW. OT- Balance Assessment Sitting Balance and Reactions Static Sitting Balance Ability Normal Dynamic Sitting Balance Ability Good Standing Balance and Reactions Static Standing Balance Ability Fair Dynamic Standing Balance Ability Poor Comments Other Balance Tests/Deviations/Treatment Pt unsteady when trying to : walk without the FWW and needing wider base of support. M8 OT- IP Objective Assessments Start: 11/12/20 12:50 Freq: Status: Active Protocol: Document 11/12/20 11:39 [facility] (Rec: 11/12/20 13:17 [facility] [id number]) OT Gross Range of Motion Upper Extremity Range of Motion Assessment Within Functional Limits OT Strength Upper Extremity Strength Assessment Within Functional Limits OT- Coordination Assessment Upper Extremity Finger to Nose Test Within Functional Limits OT-Muscle Tone Assessment Muscle Tone WNL Yes M9 OT- IP Assessment and Plan Start: 11/12/20 12:50 Freq: Status: Active Protocol: Document 11/14/20 15:25 [facility] (Rec: 11/14/20 15:48 [facility] [id number]) OT Summary Assessment and Plan Potential Rehabilitation Potential Good Analytic Complexity at Evaluation Moderate Summary OT Impairments Pain,Balance,Functional Cognition,Functional Mobility, Dressing,Toileting,Bathing, Toilet Transfers,Shower Transfers,Activity Tolerance Progress Towards Goals Progressing Toward Goals Assessment Summary Pt having a hard time to have a bowel movement and nursing came in to looking into possibly having a suppository. After getting back to be , pt immediately walked back to the toilet and after some time able to have a large bowel movement. Able to notify nursing of pt's bowel movement . Pt initially agreeing to shower but now too tired. Pt will benefit from 24/7 assist at home versus skilled rehab. Due to pt's decreased STM, pt not safe to return home alone at this time. Goals Self-Feeding Goal Independent Grooming Goal Independent Dressing Goal Standby Assistance Toileting Goal Standby Assistance Bathing Goal Standby Assistance Toilet Transfer Goal Independent Shower Transfer Goal Standby Assistance Days to Meet Goals 10 Frequency of Treatment Frequency Of Treatment Once a Day Treatment Plan OT Treatment Plan ADL Training,Functional Cognition Training,Functional Mobility,Patient/Family Education,Discharge Planning Other Treatment Recommendations and Next shower Treatment Focus Discharge Recommendations OT Discharge Recommendations Home with 24/7 Assist Available,Home Health,SNF Rehab,Home vs SNF Transportation Needs at Discharge Private Vehicle,Wheelchair/ Cabulance
[2020-11-14 16:00] VITALS: BP 94/65; PULSE 79; RESP 16; TEMP 36.6; O2SAT 98
[2020-11-14 20:00] VITALS: BP 118/74; PULSE 82; RESP 16; TEMP 36.8; O2SAT 98
[2020-11-15] VITALS (8 sets, daily range): BP systolic 76–148; BP diastolic 52–99; PULSE 71–88; RESP 17–19; TEMP 36.1–36.9; O2SAT 92–100
[2020-11-15 05:08] LABS: Add Manual Diff / Slide Review NO; Basophils Absolute Auto 100 /uL (0-100); Basophils Percent Auto 1.3 % (0-2); Eosinophils Absolute Auto 100 /uL (0-450); Eosinophils Percent Auto 1.5 % (2-4); Hemoglobin 11.9 g/dL (13.5-17.5); Lymphocytes Absolute Auto 900 /uL (1100-4500); Lymphocytes Percent Auto 11.7 % (25-40); Mean Corpuscular Hemoglobin 35.7 PG (26-34); Monocytes Absolute Auto 1300 /uL (0-900); Monocytes Percent Auto 16.1 % (3-14); Neutrophils Absolute Auto 5500 /uL (1500-7000); Neutrophils Percent Auto 69.4 % (50-75); Platelet Count 254 X10^3/uL (150-400); Red Blood Cell Count 3.33 X10^6/uL (4.5-5.9); Red Cell Distribution Width 13.5 % (11.6-14.8); White Blood Cell Count 7.9 X10^3/uL (4.5-11.0)
[2020-11-15 05:19] LABS: Alanine Aminotransferase 29 IU/L (<50); Albumin 3.9 g/dL (3.5-5.0); Albumin Globulin Ratio 1.5 (1.0-2.8); Alkaline Phosphatase 81 U/L (38-126); Aspartate Aminotransferase 29 IU/L (17-59); BUN Creatinine Ratio 26.2 (6-22); Bilirubin Total 0.2 mg/dL (0.2-1.3); Blood Urea Nitrogen 22 mg/dL (9-20); Calcium 9.2 mg/dL (8.4-10.2); Carbon Dioxide 26 mmol/L (22-32); Chloride 104 mmol/L (98-107); Estimated Glomerular Filt Rate > 60.0 mL/min (>60); Globulin 2.6 g/dL (1.7-4.1); Glucose 88 mg/dL (80-110); HEMOLYSIS < 15 (0-50); Potassium 4.2 mmol/L (3.4-5.1); Sodium 137 mmol/L (137-145); Total Protein 6.5 g/dL (6.3-8.2)
[2020-11-15 05:27] LABS: NT-proBNP (BNP-Adult 18+) 1400 pg/mL (<125)
--- NOTE | 2020-11-15 10:15 | PT.IPTN ---
Current Diagnoses Other specified diseases of blood and blood-forming organs (11/08/20) Alcohol dependence with withdrawal, unspecified (11/08/20) Unspecified atrial fibrillation (11/08/20) Unspecified convulsions (11/08/20) Other specified abnormal findings of blood chemistry (11/08/20) Physical Therapy Treatment Note M2 PT-IP Current Condition Start: 11/11/20 15:22 Freq: NEEDED Status: Active Protocol: Document 11/15/20 10:19 [facility] (Rec: 11/15/20 10:34 [facility] [id number]) Physical Therapy Current Condition Current Condition Evaluation Date 11/11/20 Treatment Diagnosis seizure, impaired gait Onset Date 11/08/20 Precautions Other Precautions ETOH precautions, seizure precautions M3 PT-IP Subjective Start: 11/11/20 15:22 Freq: NEEDED Status: Active Protocol: Document 11/15/20 10:19 [facility] (Rec: 11/15/20 10:34 [facility] [id number]) Subjective Physical Therapy Visit Type Type Treatment Note Visit Start Time 09:45 Visit Stop Time 10:10 Total Visit Minutes 25 Notes BP take: seated EOB 76/52, supine 104/75, end of session 93/60 Physical Therapy Visit Comments Patient Comments Pt able to state name and upon arrival. He is found seated EOB with WIND [employer]UR[employer] DESIGN ENGINEER stating he got up because he wasn't feeling well and he want to go to the sink to get food out of my teeth. Therapy Pain Assessment Pain When Pain Assessed At Rest Pain Present Pain Present Pain Reported Location Lower Abdomen Scale Used would not answer numeric question Description Cramping,Tightness Pain Behaviors Facial Grimacing Pain Management Techniques Re-positioning M4 PT-IP Mobility and Gait Start: 11/11/20 15:22 Freq: NEEDED Status: Active Protocol: Document 11/15/20 10:19 [facility] (Rec: 11/15/20 10:34 [facility] [id number]) PT-Bed Mobility Assessment Rolling Type of Rolling Log Rolling,Roll to Left Level of Assist Standby Assistance Supine to Sit Supine to Sit Standby Assistance Sit to Supine Sit to Supine Standby Assistance PT-Transfer Assessment Sit to and From Stand Sit to and from Stand Contact Guard Assistance,1 Person Assistance,Use of Upper Extremities Equipment Transfer Assistive Device Gait Belt,Front Wheeled Walker Orthotic/Prosthetic Devices or Brace: No Transfers Transfer Destination Bed,Chair Transfer Technique Stand Step Pivot Transfer Ability Level of Assist Contact Guard Assistance,1 Person Assistance,Use of Upper Extremities Comments Mobility Comments Pt found seated EOB upon arrival. After BP taken, pt is able transfer sit>supine SBA and BP is taken again. Pt feeling better and wanting to get up to walk to sink. Pt returns supine>SL>seated EOB SBA. He is CGA for sit<>stand due to c/o dizziness throughout session when upright. He ambulates to sink with FWW and gait belt CGA. He is able to stand and brush teeth CGA and shows good standing balance. After 2 minutes at sink pt c/o dizziness again and refuses walker stating I just don't need it right now, I don't use it at home. He is CGA walking 5 ft back to bed where he is SBA for all bed mobility again. After 2 minutes BP stable and pt requests transfer to chair. He transfers without AD, CGA with gait belt, stand-step pivot. BP taken at end of session 93/60. Gait Assessment Gait Gait Assistance Required: Contact Guard Assist,1 Person Assist Distance (Feet) 10 Able to Maintain Weight Bearing Status Yes During Gait Assistive Devices Assistive Device Gait Belt,Front Wheeled Walker Orthotic/Prosthetic Devices or Brace: No Gait Deviations General Gait Pattern Decreased Stride Length Factors Limiting Gait Function Factors Limiting Gait Function Decreased Activity Tolerance, Decreased Strength,Pain,Poor Balance,Poor Safety Awareness Comments Gait Comments Pt is unable to ambulate outside of room this session due to dizziness. He ambulates 5 ft to sink and 5 ft back to bed. See transfers section for more details. Stair Climbing Assessment Comments Stair Climbing Comments Not assessed due to orthostatic BP PT-Balance Assessment Sitting Balance and Reactions Static Sitting Balance Ability Normal Dynamic Sitting Balance Ability Good Standing Balance and Reactions Static Standing Balance Ability Fair Dynamic Standing Balance Ability Fair Device Used FWW, no AD M5 PT-IP Objective Assessments Start: 11/11/20 15:22 Freq: NEEDED Status: Active Protocol: Document 11/11/20 15:23 [facility] (Rec: 11/11/20 15:42 [facility] [id number]) Orientation Orientation/Cognition Level of Alertness Alert Orientation Name,Age,Birthday Language Function Ability Hard of Hearing Safety Awareness Decreased Safety Awareness Memory Description Short Term Impaired,Payment Rep Impaired Comments He is aware he is in the hospital but not sure what town at this time. He does not recall what happened to him but is aware that he had a seizure. He is intermittenly tearful during conversation. Gross Range of Motion Upper Extremity ROM Assessment Within Functional Limits Lower Extremity ROM Assessment Within Functional Limits Strength Upper Extremity Strength Shoulder 4/5 Elbow 4/5 Wrist 4/5 Hand 4/5 Lower Extremity Strength Assessment Bilaterally Impaired Hip 4/5 Knee 4/5 Ankle 4/5 Comments Strength Comments back pain with functional movements, he reports less pain when brings knees up towards chest seated in recliner Coordination Assessment Gross Coordination Gross Coordination Impaired Assessment Finger to Nose Test Minimal Impairment Foot Tapping Test Moderate Impairment Coordination Comments bradykinetic Sensation Assessment Sensation Gross Sensation WNL Comments Sensation Comments no numbness/tingling reported by pt at this time Muscle Tone Muscle Tone WNL Yes M6 PT-IP Treatment Start: 11/11/20 15:22 Freq: NEEDED Status: Active Protocol: Document 11/15/20 10:19 [facility] (Rec: 11/15/20 10:34 [facility] [id number]) Physical Therapy Treatment Education Education Provided Safety M7 PT-IP Assessment and Plan Start: 11/11/20 15:22 Freq: NEEDED Status: Active Protocol: Document 11/15/20 10:19 [facility] (Rec: 11/15/20 10:34 MA [id number]) PT Summary Assessment and Plan Potential Rehabilitation Potential Good Status of Condition at Evaluation Evolving Summary Impairments Pain,ROM,Strength,Balance, Coordination,Cognition,Bed Mobility,Transfers,Gait, Activity Tolerance Progress Towards Goals Progressing Toward Goals,Slow Progress due to Activity Tolerance Assessment Summary Pt is unable to ambulate out of room this session due to orthostatic BPs. He is dizzy throughout treatment session and states he just doesn't feel like himself today. He is found seated EOB upon arrival with WIND TURB[employer] DESIGN ENGINEER in room who reports bed alarm going off prior to PT arrival. Pt is SBA for all bed mobility this session and CGA for gait. He initially walks to sink with FWW and returns to bed refusing FWW. Pt is reminded to use FWW for safety with nursing and to use call light if he needs to get up. Pt was unsafe to complete stair training this session due to BP and refused ambulation in hallway due to dizziness. Goals Bed Mobility Goal Independent Transfer Goal Independent,Crutches,Front Wheeled Walker Gait Goal Independent,Front Wheel Walker Gait Distance 300 feet Other Goals Up and down 3 steps with rail and SBA Days to Meet Goals 7 Frequency of Treatment Frequency Of Treatment Twice a Day Treatment Plan Physical Therapy Treatment Plan Bed Mobility Training,Transfer Training,Gait Training, Therapeutic Exercise,Balance Retraining,Discharge Planning, Hot or Cold Pack,Neuromuscular Re-ed,Coordination Retraining Other Recommendations and Next Treatment check vitals, progress gait Focus LRAD and stair mgt prior to DC if safe vitals. Recommendations To Nursing Amount of Assist Needed Standby Assistance Discharge Recommendations PT Discharge Recommendations Home with / Assist Available,Home Health,SNF Rehab Equipment Needed for Home Before pt owns a FWW Discharge Transportation Needs at Discharge Private Vehicle
[2020-11-15] MEDS: MULTIVITAMIN 1 TABLET 1 TAB PO (11:08)
[2020-11-15] MEDS: ENOXAPARIN 40 MG/0.4 ML SYRINGE SUBCUT (11:08)
[2020-11-15] MEDS: CYANOCOBALAMIN 1,000 MCG/ML VIAL 1000 MCG SUBCUT (11:08)
[2020-11-15] MEDS: SODIUM CHLORIDE 0.9% FLUSH 10 ML IV ×2 (11:09→20:22)
[2020-11-15] MEDS: FOLIC ACID 1 MG TABLET PO (11:09)
--- NOTE | 2020-11-15 11:26 | PM.PN.1 ---
Subjective Subjective Date Patient Seen: 11/15/20 Time Patient Seen: 11:26 Interval history: Patient feeling slightly better today. Blood pressure when he got up today did drop down but he had in feel too bad. Staff felt as if he was a little pale. But no other changes. Did not have elevation in his heart rate. His AFib has been well controlled. No other significant change Exam Vital Signs (past 8 hours): - 11/15/20 04:00 11/15/20 07:56 11/15/20 10:11 Temperature 97.6 F 97 F L Pulse Rate 87 71 88 Respiratory Rate 19 17 Blood Pressure 102/68 111/70 76/52 L Pulse Oximetry 96 95 Oxygen Delivery Method Room Air Oxygen Flow Rate 0 Narrative Exam Narrative: Alert elderly male in no acute distress. Slightly more awake today. Lungs are clear. Heart is irregular with controlled rate Objective Labs Result Diagrams: 11/15/20 04:44 11/15/20 04:44 Labs: Laboratory Results - last 24 hr 11/15/20 11/15/20 11/15/20 04:44 04:44 04:44 WBC 7.9 RBC 3.33 L Hgb 11.9 L Hct 35.0 L MCV 105.0 H MCH 35.7 H MCHC 34.0 RDW 13.5 Plt Count 254 Neut % (Auto) 69.4 Lymph % (Auto) 11.7 L [place] % (Auto) 16.1 H Eos % (Auto) 1.5 L Baso % (Auto) 1.3 Neut # (Auto) 5500 Lymph # (Auto) 900 L [place] # (Auto) 1300 H Eos # (Auto) 100 Baso # (Auto) 100 Sodium 137 Potassium 4.2 Chloride 104 Carbon Dioxide 26 BUN 22 H Creatinine 0.84 Estimated GFR > 60.0 BUN/Creatinine Ratio 26.2 H Glucose 88 Calcium 9.2 Total Bilirubin 0.2 AST 29 ALT 29 Alkaline Phosphatase 81 NT-Pro-B Natriuret Pep 1400 H Total Protein 6.5 Albumin 3.9 Globulin 2.6 Albumin/Globulin Ratio 1.5 PFSH Medical History (Updated 11/07/20 @ 22:03 by Collins Bravo MD) Alcohol abuse Atrial fibrillation Gout HTN (hypertension) Social History marital status: household members: spouse occupational status: previously employed Smoking Status: Former smoker alcohol intake: current substance use type: does not use Assessment & Plan Assessment & Plan narrative: Hypo tension. Patient has been having this intermittently during his stay. Will hold his blood pressure medicines. Rate has been controlled. Does not appear to be related to AFib echo appears normal. I suspect it is probably fluid related will have patient push fluids I am not going to give him fluids given his cardiac status. I think it is just going to have to adjust as he gets out and away from his alcohol. His body is just adjusting. Otherwise seems to be stable we will follow. Atrial fibrillation. Rate is been controlled. He seems to be doing pretty well. Question whether not this will maintain. He is off both of his rate control medicine secondary to hypotension with the staff to follow. I do think this is something that needs to be followed as an outpatient closely and will need to be considered something that is followed during his rehab stay. Prolonged QT. appears to have resolved. Will follow. Probably secondary to alcohol abuse. And electrolyte abnormalities which seemed to have resolved. Alcohol withdrawal with history of seizures. No other changes. Patient feels as if for the 1st time he wants to quit. Not really opened to help. Long discussion it is very difficult to do alone. The specially if once living alone. Brain can tell itself would ever wants over time. He understands this but does not want to engage alcoholics anonymous or other changes. He understands that this is a risk and that he could if he restarts. Macrocytotic anemia. Secondary to alcohol on multi vitamin. Hypertension. Not an issue at this time. Off medication for now. Dementia. Question whether secondary to alcohol very hard to assess. Will see how things go. Depression. Not sure how we can assess him since he has been essentially intoxicated 4 years will see how things go. He does not seem to be having an issue right now. Weakness. Primary issue at this time. Patient is going to be going home alone will need to do full care for himself. I really believe a rehab center for short stay would be the best option for this individual. We have discussed this with him and his family is in agreement. We discussed this. He understands will call if change. Discussed with social service. They are trying to find placement Disposition. [facility] for [facility] and strengthening before he goes home alone. Acute at high risk for relapse of his alcohol and for significant physical issues just because of his inability to probable care from self completely at this time. Will hope we can place and then follow as an outpatient. Certainly will need to be followed until his blood pressure normalizes Time Spent With Patient Critical Care time: I spent a total of [] minutes of critical care time on this patient's care today; this time is exclusive of procedural time.
--- NOTE | 2020-11-15 13:59 | CM.DPC ---
DCP continued: EMR reviewed: Received VM from [facility] saying that they need to do a bedside assessment of the patient prior to accepting him for admission but they didn't do it yet because they thought the patient was going to [facility]. CM called [facility] and left voice mail stating that patient is not going to [facility] and we would like to set up a bedside assessment for either later today or for first thing tomorrow morning if possible. according to previous notes [facility], [place] [facility] [place] and [facility] all cannot accept patient, [facility] will reassess on Monday and [facility] needs to do a bedside assessment. Dr Layne would like the patient to go to SNF rather then home since there is no one at home to help patient at Discharge. However, since a SNF may not be possible we do have HH F2[facility] signed. Dr. Layne stated he is getting patient set up with which the patient agreed to. PLAN: SNF- CM will check with [facility] and [facility] tomorrow if no SNF will accept then home with HH. Ave Manning RN, Case Management
--- NOTE | 2020-11-15 15:04 | PT.IPTN ---
Current Diagnoses Other specified diseases of blood and blood-forming organs (11/08/20) Alcohol dependence with withdrawal, unspecified (11/08/20) Unspecified atrial fibrillation (11/08/20) Unspecified convulsions (11/08/20) Other specified abnormal findings of blood chemistry (11/08/20) Physical Therapy Treatment Note M2 PT-IP Current Condition Start: 11/11/20 15:22 Freq: NEEDED Status: Active Protocol: Document 11/15/20 10:19 MA (Rec: 11/15/20 10:34 MA [id number]) Physical Therapy Current Condition Current Condition Evaluation Date 11/11/20 Treatment Diagnosis seizure, impaired gait Onset Date 11/08/20 Precautions Other Precautions ETOH precautions, seizure precautions M3 PT-IP Subjective Start: 11/11/20 15:22 Freq: NEEDED Status: Active Protocol: Document 11/15/20 15:06 MA (Rec: 11/15/20 15:24 MA [id number]) Subjective Physical Therapy Visit Type Type Treatment Note Visit Start Time 14:45 Visit Stop Time 15:04 Total Visit Minutes 19 Notes nurse reports stable BP upon PT arrival of 104/76 Physical Therapy Visit Comments Patient Comments Pt states he is no longer dizzy and wants to get up and walk Therapy Pain Assessment Pain When Pain Assessed During Mobility Pain Present Pain Present Pain Reported Location Lower Abdomen Description Cramping,Tightness Pain Behaviors Facial Grimacing Pain Management Techniques Re-positioning M4 PT-IP Mobility and Gait Start: 11/11/20 15:22 Freq: NEEDED Status: Active Protocol: Document 11/15/20 15:06 MA (Rec: 11/15/20 15:24 MA [id number]) PT-Transfer Assessment Sit to and From Stand Sit to and from Stand Standby Assistance,Use of Upper Extremities Equipment Transfer Assistive Device Gait Belt Orthotic/Prosthetic Devices or Brace: No Transfers Transfer Destination Chair Transfer Technique Stand Step Pivot Transfer Ability Level of Assist Standby Assistance,Use of Upper Extremities Comments Mobility Comments Pt initially standing upon arrival. PT requests pt return to seated to place gait belt. Pt able to perform sit<>stand SBA without AD this session Gait Assessment Gait Gait Assistance Required: Standby Assistance,Contact Guard Assist Distance (Feet) 350 Able to Maintain Weight Bearing Status Yes During Gait Assistive Devices Assistive Device None,Gait Belt,Front Wheeled Walker Orthotic/Prosthetic Devices or Brace: No Gait Deviations General Gait Pattern Decreased Stride Length,Narrow Based Gait Factors Limiting Gait Function Factors Limiting Gait Function Decreased Activity Tolerance, Decreased Strength,Pain,Poor Balance Comments Gait Comments Pt is able to ambulate 2 laps around nursing station, first lap using FWW and gait belt, CGA. Second lap pt is CGA with gait belt and no AD. He then sits in W/C and is driven to therapy stairs. He requests to try walking back from therapy stairs and is able to walk SBA 150 ft back to room. Stair Climbing Assessment Evaluation Level of Assist On Stairs Contact Guard Assistance,1 Person Assistance Devices Stair Climbing Assistive Devices Left Railing Technique/Endurance Stair Climbing Direction Ascend and Descend Stair Climbing Technique Step Over Step Number of Steps Climbed 3 Stair Climbing Set # Repetitions (reps) 2 Comments Stair Climbing Comments Pt is able to complete stair training, CGA using L rail. He uses step-over pattern and requests to walk back to room since he is feeling so well. PT-Balance Assessment Sitting Balance and Reactions Static Sitting Balance Ability Normal Dynamic Sitting Balance Ability Good Standing Balance and Reactions Static Standing Balance Ability Fair Dynamic Standing Balance Ability Fair Device Used FWW, no AD M5 PT-IP Objective Assessments Start: 11/11/20 15:22 Freq: NEEDED Status: Active Protocol: Document 11/11/20 15:23 [facility] (Rec: 11/11/20 15:42 [facility] [id number]) Orientation Orientation/Cognition Level of Alertness Alert Orientation Name,Age,Birthday Language Function Ability Hard of Hearing Safety Awareness Decreased Safety Awareness Memory Description Short Term Impaired,Detention Impaired Comments He is aware he is in the hospital but not sure what town at this time. He does not recall what happened to him but is aware that he had a seizure. He is intermittenly tearful during conversation. Gross Range of Motion Upper Extremity ROM Assessment Within Functional Limits Lower Extremity ROM Assessment Within Functional Limits Strength Upper Extremity Strength Shoulder 4/5 Elbow 4/5 Wrist 4/5 Hand 4/5 Lower Extremity Strength Assessment Bilaterally Impaired Hip 4/5 Knee 4/5 Ankle 4/5 Comments Strength Comments back pain with functional movements, he reports less pain when brings knees up towards chest seated in recliner Coordination Assessment Gross Coordination Gross Coordination Impaired Assessment Finger to Nose Test Minimal Impairment Foot Tapping Test Moderate Impairment Coordination Comments bradykinetic Sensation Assessment Sensation Gross Sensation WNL Comments Sensation Comments no numbness/tingling reported by pt at this time Muscle Tone Muscle Tone WNL Yes M6 PT-IP Treatment Start: 11/11/20 15:22 Freq: NEEDED Status: Active Protocol: Document 11/15/20 15:06 MA (Rec: 11/15/20 15:24 MA [id number]) Physical Therapy Treatment Education Education Provided Safety M7 PT-IP Assessment and Plan Start: 11/11/20 15:22 Freq: NEEDED Status: Active Protocol: Document 11/15/20 15:06 MA (Rec: 11/15/20 15:24 MA [id number]) PT Summary Assessment and Plan Potential Rehabilitation Potential Good Status of Condition at Evaluation Evolving Summary Impairments Pain,ROM,Strength,Balance, Coordination,Cognition,Bed Mobility,Transfers,Gait, Activity Tolerance Progress Towards Goals Progressing Toward Goals,Slow Progress due to Activity Tolerance Assessment Summary Pt does much better this session and has no dizziness but c/o pain in abdomen. He is able to progress to SBA during ambulation and completes stair training CGA using L rail. Pt walks with decreased stride length and TICO but increased melvina. PT gives pt verbal cues to slow down and take bigger steps but pt does not comply. Goals Bed Mobility Goal Independent Transfer Goal Independent,Crutches,Front Wheeled Walker Gait Goal Independent,Front Wheel Walker Gait Distance 300 feet Other Goals Up and down 3 steps with rail and SBA Days to Meet Goals 7 Frequency of Treatment Frequency Of Treatment Twice a Day Treatment Plan Physical Therapy Treatment Plan Bed Mobility Training,Transfer Training,Gait Training, Therapeutic Exercise,Balance Retraining,Discharge Planning, Hot or Cold Pack,Neuromuscular Re-ed,Coordination Retraining Other Recommendations and Next Treatment check vitals, continue Focus progressing gait. D/C if vitals stable Recommendations To Nursing Amount of Assist Needed Standby Assistance Discharge Recommendations PT Discharge Recommendations Home with 05/09 Assist Available,Home Health,SNF Rehab Equipment Needed for Home Before pt owns a FWW Discharge Transportation Needs at Discharge Private Vehicle
--- NOTE | 2020-11-15 16:06 | CM.DPC ---
DCP Cont: SW received a call from pt's spouse inquiring about SNF attempts and back up options and SW updated her on the barriers to SNF acceptance and awaiting tomorrow from final review from a couple SNFs and spouse acknowledges understanding and SW discussed if [facility] or [facility] SNF can accept then they will provide transport but if in another county then family/friend or [facility] taxi/cabulance for transport and she is agreeable with [facility] transport if needed. SW also discussed Meals on Wheels, Home Health, and working on getting an AA sponsor for pt as backup plan and spouse aware that pt has to be agreeable to accepting HH and AA sponsor as he historically has not answered calls from HH. Spouse will call back tomorrow to determine the d/c plan in place for pt. Plan: SW to follow up closely with above SNF's for acceptance vs return home with HH, Meals Wheels, and AA. JEROME Gonsalves
[2020-11-16 02:52] VITALS: BP 140/77; PULSE 88; RESP 14; TEMP 36.6; O2SAT 97
[2020-11-16 08:00] VITALS: BP 117/68; PULSE 80; RESP 18; TEMP 37; O2SAT 98
[2020-11-16] MEDS: ENOXAPARIN 40 MG/0.4 ML SYRINGE SUBCUT (08:51)
[2020-11-16] MEDS: FOLIC ACID 1 MG TABLET PO (08:51)
[2020-11-16] MEDS: SODIUM CHLORIDE 0.9% FLUSH 10 ML IV ×2 (08:51→21:39)
[2020-11-16] MEDS: CYANOCOBALAMIN 1,000 MCG/ML VIAL 1000 MCG SUBCUT (08:51)
[2020-11-16] MEDS: MULTIVITAMIN 1 TABLET 1 TAB PO (08:51)
--- NOTE | 2020-11-16 09:44 | PT.IPTN ---
Current Diagnoses Other specified diseases of blood and blood-forming organs (11/08/20) Alcohol dependence with withdrawal, unspecified (11/08/20) Unspecified atrial fibrillation (11/08/20) Unspecified convulsions (11/08/20) Other specified abnormal findings of blood chemistry (11/08/20) Physical Therapy Treatment Note M2 PT-IP Current Condition Start: 11/11/20 15:22 Freq: NEEDED Status: Active Protocol: Document 11/15/20 10:19 MA (Rec: 11/15/20 10:34 MA [id number]) Physical Therapy Current Condition Current Condition Evaluation Date 11/11/20 Treatment Diagnosis seizure, impaired gait Onset Date 11/08/20 Precautions Other Precautions ETOH precautions, seizure precautions M3 PT-IP Subjective Start: 11/11/20 15:22 Freq: NEEDED Status: Active Protocol: Document 11/16/20 09:44 MA (Rec: 11/16/20 10:07 MA [email or web address]) Subjective Physical Therapy Visit Type Type Treatment Note Visit Start Time 09:24 Visit Stop Time 09:44 Total Visit Minutes 20 Notes Initial BP in seated 78/50; resting in chair after therapy 94/57 Physical Therapy Visit Comments Patient Comments Pt c/o back pain but wants to get up with therapy Therapy Pain Assessment Pain When Pain Assessed At Rest Pain Present Pain Present Pain Reported Location Lower Back Pain Behaviors Guarding,Holding Area Pain Management Techniques Re-positioning M4 PT-IP Mobility and Gait Start: 11/11/20 15:22 Freq: NEEDED Status: Active Protocol: Document 11/16/20 09:44 MA (Rec: 11/16/20 10:07 MA [id number]) PT-Bed Mobility Assessment Rolling Type of Rolling Roll to Left Level of Assist Standby Assistance Supine to Sit Supine to Sit Standby Assistance Scooting Scooting to Edge of Bed Independent PT-Transfer Assessment Sit to and From Stand Sit to and from Stand Standby Assistance,Use of Upper Extremities Equipment Transfer Assistive Device Gait Belt Orthotic/Prosthetic Devices or Brace: No Transfers Transfer Destination Chair Transfer Technique Stand Step Pivot Transfer Ability Level of Assist Standby Assistance,Use of Upper Extremities Comments Mobility Comments Pt able to perform all bed mobility SBA. He c/o back pain and dizziness with BP taken, 78/50. Dizziness subsides and pt is able to sit EOB with good balance and pull pants on requiring some assistance getting feet in through holes. Gait Assessment Gait Gait Assistance Required: Standby Assistance,Contact Guard Assist Distance (Feet) 300 Able to Maintain Weight Bearing Status Yes During Gait Assistive Devices Assistive Device Gait Belt Orthotic/Prosthetic Devices or Brace: No Gait Deviations General Gait Pattern Decreased Stride Length,Narrow Based Gait Factors Limiting Gait Function Factors Limiting Gait Function Decreased Activity Tolerance, Decreased Strength,Pain,Poor Balance Comments Gait Comments Pt makes one lap around nursing station ~100 ft initially walking CGA and has one LOB reaching for bar on wall to steady himself. He returns to room to sit in chair for rest break and BP is taken again 94/57. He states he feels less dizzy and is able to progress to SBA for 200 more ft in hallway before returning to room chair. Stair Climbing Assessment Comments Stair Climbing Comments Did not complete due to pt dizzy from orthostatic BP this session PT-Balance Assessment Sitting Balance and Reactions Static Sitting Balance Ability Normal Dynamic Sitting Balance Ability Good Standing Balance and Reactions Static Standing Balance Ability Fair Dynamic Standing Balance Ability Fair Device Used no AD M5 PT-IP Objective Assessments Start: 11/11/20 15:22 Freq: NEEDED Status: Active Protocol: Document 11/11/20 15:23 DLM (Rec: 11/11/20 15:42 DLM [id number]) Orientation Orientation/Cognition Level of Alertness Alert Orientation Name,Age,Birthday Language Function Ability Hard of Hearing Safety Awareness Decreased Safety Awareness Memory Description Short Term Impaired,Data Migration Consultant Impaired Comments He is aware he is in the hospital but not sure what town at this time. He does not recall what happened to him but is aware that he had a seizure. He is intermittenly tearful during conversation. Gross Range of Motion Upper Extremity ROM Assessment Within Functional Limits Lower Extremity ROM Assessment Within Functional Limits Strength Upper Extremity Strength Shoulder 4/5 Elbow 4/5 Wrist 4/5 Hand 4/5 Lower Extremity Strength Assessment Bilaterally Impaired Hip 4/5 Knee 4/5 Ankle 4/5 Comments Strength Comments back pain with functional movements, he reports less pain when brings knees up towards chest seated in recliner Coordination Assessment Gross Coordination Gross Coordination Impaired Assessment Finger to Nose Test Minimal Impairment Foot Tapping Test Moderate Impairment Coordination Comments bradykinetic Sensation Assessment Sensation Gross Sensation WNL Comments Sensation Comments no numbness/tingling reported by pt at this time Muscle Tone Muscle Tone WNL Yes M6 PT-IP Treatment Start: 11/11/20 15:22 Freq: NEEDED Status: Active Protocol: Document 11/16/20 09:44 MA (Rec: 11/16/20 10:07 MA [id number]) Physical Therapy Treatment Education Education Provided Safety Other Treatments Other Treatment Performed Educated on back pain and repositioning in bed/chair to help decrease pain M7 PT-IP Assessment and Plan Start: 11/11/20 15:22 Freq: NEEDED Status: Active Protocol: Document 11/16/20 09:44 MA (Rec: 11/16/20 10:07 MA [id number]) PT Summary Assessment and Plan Potential Rehabilitation Potential Good Status of Condition at Evaluation Evolving Summary Impairments Pain,ROM,Strength,Balance, Coordination,Cognition,Bed Mobility,Transfers,Gait, Activity Tolerance Progress Towards Goals Progressing Toward Goals,Slow Progress due to Activity Tolerance Assessment Summary Pt does well during ambulation again this session. He is dizzy initially with BP of 78/ 50. BP improves after walking and taking short seated rest break to 94/57. Pt states he actually has full stair case to get to master bed room on second floor and will need to complete full set of stairs before d/c. Goals Bed Mobility Goal Independent Transfer Goal Independent,Crutches,Front Wheeled Walker Gait Goal Independent,Front Wheel Walker Gait Distance 300 feet Other Goals Up and down 3 steps with rail and SBA Days to Meet Goals 7 Frequency of Treatment Frequency Of Treatment Twice a Day Treatment Plan Physical Therapy Treatment Plan Bed Mobility Training,Transfer Training,Gait Training, Therapeutic Exercise,Balance Retraining,Discharge Planning, Hot or Cold Pack,Neuromuscular Re-ed,Coordination Retraining Other Recommendations and Next Treatment check vitals, complete full Focus set of stairs for second story bedroom Recommendations To Nursing Amount of Assist Needed Standby Assistance,1 Person Assist Discharge Recommendations PT Discharge Recommendations Home with / Assist Available,Home Health,SNF Rehab Equipment Needed for Home Before pt owns a FWW Discharge Transportation Needs at Discharge Private Vehicle
[2020-11-16 12:00] VITALS: BP 121/51; PULSE 70; RESP 18; TEMP 36.6; O2SAT 97
--- NOTE | 2020-11-16 12:51 | CM.DPC ---
DCP continued: CM heard back from Bianka from [facility] and she states they are unable to meet the needs of the patient at this time. CM Called Tiffanie at [facility] at [phone] LVM asking about if they can accept this patient or not. Tiffanie had stated earlier today that she thought [facility] was [facility] to [facility]. CM explained in voice message yesterday that was not the case and patient needed to be evaluated for possible admission. Today CM called and left another VM stating patient is still looking for SNF and needs to be evaluated please. Tiffanie called back and spoke with Jennifer- she stated that she will come in and do bedside assessment today at about 3pm to determine if they can accept patient for admission. CM department will continue to follow to see if [facility] can accept patient for admission or if the plan needs to switch to home with HH. Ave Manning RN
--- NOTE | 2020-11-16 13:05 | OT.IP.TRT ---
Current Diagnoses Other specified diseases of blood and blood-forming organs (11/08/20) Alcohol dependence with withdrawal, unspecified (11/08/20) Unspecified atrial fibrillation (11/08/20) Unspecified convulsions (11/08/20) Other specified abnormal findings of blood chemistry (11/08/20) Occupational Therapy Treatment Note M2 OT-IP Current Condition Start: 11/12/20 12:50 Freq: Status: Active Protocol: Document 11/12/20 11:39 [facility] (Rec: 11/12/20 13:17 [facility] [id number]) Occupational Therapy Current Condition Current Condition Evaluation Date 11/12/20 Treatment Diagnosis ETOH withdrawl, s/p seizure Diagnosis Onset Date 11/08/20 M3 OT- IP Subjective and Pain Start: 11/12/20 12:50 Freq: Status: Active Protocol: Document 11/16/20 14:08 CGR (Rec: 11/16/20 14:25 CGR [id number]) OT- Subjective Occupational Therapy Visit Type Type Progress Note Visit Start Time 12:32 Visit Stop Time 13:05 Total Visit Minutes 33 Notes Pt agreeable to shower. Occupational Therapy Visit Comments Patient Comments I just feel winded, this is very abnormal OT Pain Assessment Pain When Pain Assessed At Rest Pain Present Pain Present Denied Pain M4 OT- IP ADL's Start: 11/12/20 12:50 Freq: Status: Active Protocol: Document 11/16/20 14:08 CGR (Rec: 11/16/20 14:25 CGR [id number]) OT [id number] General Evaluation Self-Feeding Ability Independent Comments OT Self-Feeding Comments lunch there when OT arrived. OT ADL-Grooming General Evaluation Grooming Ability Independent Areas Needing Assistance Face Washing OT ADL-Oral Care Comments Oral Care Comments not performed OT ADL-Dressing General Eval Upper Body Dressing Ability Independent Lower Body Dressing Ability Independent,Total Assistance Areas Needing Assistance Pull-Over Shirt,Underpants/ Brief,Pants/Shorts,Socks Comments OT Dressing Comments Pt was able to don underpants and brief but needed assist with socks. Pt states that he is typically IND with socks but that his lower back pain is preventing him from performing the task at this time. OT ADL-Toileting Comments OT Toileting Comments not performed OT ADL-Bathing Bathing Type Bathing Type Shower General Evaluation Bathing Ability Standby Assistance Areas Needing Assistance Retrieving/Setting Up Items Devices Bathing Equipment Shower Chair with Arms,Grab Bars Comments OT Bathing Comments Pt sat on 3 in 1 in shower stall for all bathing. Stood for pericare only. M5 OT- IP IADL's Start: 11/12/20 12:50 Freq: Status: Active Protocol: Document 11/12/20 11:39 [facility] (Rec: 11/12/20 13:17 [facility] [id number]) OT-Instrumental Activities of Daily Living Home Safety Awareness Ability to Problem Solve Emergency Able to Problem Solve Situations Home Safety Comments Pt able to answer all home safety situations with good accuracy. Medication Management Medication Management Comments Pt states that he ofeten forgets to take his medications. Money Management Money Management Comments Pt states his pays the bills but not sure how. Meal Preparation Meal Preparation Comments Pt states just mainly uses the microwave for his food needs. Driving Driving Concerns Identified Regarding Safety M6 OT- IP Functional Cognition Start: 11/12/20 12:50 Freq: Status: Active Protocol: Document 11/14/20 15:25 [facility] (Rec: 11/14/20 15:48 [facility] [id number]) Cognitive Factors Limiting Selfcare Function Cognitive Ability Level of Alertness Alert Patient Orientation Name,Year Attention Span Ability Capable of Focused Attention, Capable of Sustained Attention Ability to Follow Commands Able to Follow One Step Commands Memory Description Short Term Impaired,Music Coordinator Impaired,Working Impaired Problem Solving Ability Needs Assist to Identify Solutions Cognitive Comments Cognitive Assessment Comments Pt not able to recall whether he showered or not yesterday. Pt needigng cues to keep the FWW in front of him to use for safety. Pt's brother called and pt states to call him back but not remembering that he does not know his phone number to call him back. Pt able to problem solve may have to call his to figure out his brother's number. Able to let nursing know ot pt's request to call his brother back. M7 OT- IP Mobility and Balance Start: 11/12/20 12:50 Freq: Status: Active Protocol: Document 11/16/20 14:08 [facility]GR (Rec: 11/16/20 14:25 CGR [id number]) OT-Transfer Assessment Sit to and From Stand Sit to and from Stand Contact Guard Assistance Transfers Transfer Ability Contact Guard Assistance Technique Transfer Destination Bedside Commode,Chair,Shower Stall Transfer Technique Stand Step Pivot Devices Transfer Assistive Devices None Comments Mobility Comments Pt mobilized around the room with CGA d/t low BP. No LOB noted with ambulation. CGA for safety given low BP. OT- Balance Assessment Sitting Balance and Reactions Static Sitting Balance Ability Normal Dynamic Sitting Balance Ability Fair M8 OT- IP Objective Assessments Start: 11/12/20 12:50 Freq: Status: Active Protocol: Document 11/12/20 11:39 [facility] (Rec: 11/12/20 13:17 [facility] [id number]) OT Gross Range of Motion Upper Extremity Range of Motion Assessment Within Functional Limits OT Strength Upper Extremity Strength Assessment Within Functional Limits OT- Coordination Assessment Upper Extremity Finger to Nose Test Within Functional Limits OT-Muscle Tone Assessment Muscle Tone WNL Yes M9 OT- IP Assessment and Plan Start: 11/12/20 12:50 Freq: Status: Active Protocol: Document 11/16/20 14:08 CGR (Rec: 11/16/20 14:25 CGR [id number]) OT Summary Assessment and Plan Potential Rehabilitation Potential Good Analytic Complexity at Evaluation Moderate Summary OT Impairments Pain,Balance,Functional Cognition,Functional Mobility, Dressing,Toileting,Bathing, Toilet Transfers,Shower Transfers,Activity Tolerance Progress Towards Goals Progressing Toward Goals Assessment Summary Pt presents with low BP on this date. 98/73 initial sitting, 74/55 standing ~2 minutes, 80/53 standing ~4 minutes, 104/81 at end of session. Pt ambulated to shower and showered IND needing assist only to don socks at end of session. Pt declined other activity stating he was winded. Pt left in chair at end of session. Call button within reach and all needs at time met. Goals Self-Feeding Goal Independent Grooming Goal Independent Dressing Goal Standby Assistance Toileting Goal Standby Assistance Bathing Goal Standby Assistance Toilet Transfer Goal Independent Shower Transfer Goal Standby Assistance Days to Meet Goals 10 Frequency of Treatment Frequency Of Treatment Once a Day Treatment Plan OT Treatment Plan ADL Training,Functional Cognition Training,Functional Mobility,Patient/Family Education,Discharge Planning Other Treatment Recommendations and Next endurance Treatment Focus Discharge Recommendations OT Discharge Recommendations Home with 24/7 Assist Available,Home Health Transportation Needs at Discharge Private Vehicle
--- NOTE | 2020-11-16 13:24 | PM.PN.1 ---
Subjective Subjective Date Patient Seen: 11/16/20 Time Patient Seen: 13:25 Interval history: PATIENT OVERALL FEELING WELL. HAS MAYBE SLIGHTLY MORE ENERGY. JUST DOES NOT FEEL LIKE HE CAN DO ALL THE THINGS AT HOME HE NEEDS TO DO. WILL BE ALONE. STILL FEELS LIKE HE DOES NOT WANT TO DRINK. Exam Vital Signs (past 8 hours): - 11/16/20 08:00 Temperature 98.6 F Pulse Rate 80 Respiratory Rate 18 Blood Pressure 117/68 Pulse Oximetry 98 Oxygen Delivery Method Room Air Oxygen Flow Rate 0 Narrative Exam Narrative: FATIGUED-APPEARING OLDER THAN HIS STATED AGE ELDERLY MALE SITTING IN CHAIR NO ACUTE DISTRESS MUCOUS MEMBRANES MOIST. NECK SUPPLE WITHOUT ADENOPATHY. LUNGS ARE CLEAR. HEART IRREGULAR RHYTHM CONTROLLED RATE NO MURMURS CLICKS RUBS OR GALLOPS. EXTREMITIES WITHOUT CYANOSIS CLUBBING EDEMA. NEUROLOGIC EXAM NONFOCAL Objective Labs Result Diagrams: 11/15/20 04:44 11/15/20 04:44 [facility] Medical History (Updated 11/07/20 @ 22:03 by Collins Bravo MD) Alcohol abuse Atrial fibrillation Gout HTN (hypertension) Social History marital status: household members: spouse occupational status: previously employed Smoking Status: Former smoker alcohol intake: current substance use type: does not use Assessment & Plan Assessment & Plan narrative: WEAKNESS. THIS IS MULTIFACTORIAL. PATIENT CERTAINLY IS CAPABLE OF DOING HIS BASIC ADLS BUT HE HAS TO GO HOME AND TAKE CARE OF HIS SELF. I PERSONALLY THINK HE IS GOING TO STRUGGLE WITH DOING ALL THE EXTRA ISSUES WITH CREATING MEALS FEEDING CLEANING. I ALSO THINK IS RAGGED HAD DIFFICULTY EVEN WITH BATHING. THE REST OF BASIC ADLS HE SHOULD BE ABLE TO HANDLE. IT WOULD BE IN MY MEDICAL JUDGMENT SHORT REHAB STAY WOULD BE IN HIS BEST INTEREST WE DISCUSSED THIS HE UNDERSTANDS DISCUSSED WITH SOCIAL SERVICE UNCLEAR WHETHER HE WILL MAKE CRITERIA. IF NOT HE WILL NEED TO GO HOME WITH HOME HEALTH. ALCOHOL ABUSE. PATIENT IS FOR THE 1ST TIME HE FEELS AT A POINT WHERE HE DOES NOT WANT TO DRINK. WE DISCUSSED THIS. WE DISCUSSED DOING IT ALONE. IN THE UNLIKELY MURRY THAT HE WILL BE SUCCESSFUL. ENCOURAGED HIM TO CONNECT WITH ALCOHOLICS ANONYMOUS. HE IS NOT INTERESTED IN REHAB FACILITY AT THIS TIME. NO OTHER CHANGE. WILL FOLLOW OUTPATIENT. HYPOTENSION. SEEMS TO BE STABLE AT THIS TIME. WAS ABLE TO GET UP AND MOVE AROUND TODAY. ATRIAL FIBRILLATION. RATE CONTINUES TO BE CONTROLLED DESPITE NO MEDICATION. THIS WILL HAVE TO BE FOLLOWED AN OUTPATIENT. IT IS THE OTHER REASON I FEEL IF REHABILITATION FOLLOW-UP WOULD BE HELPFUL IN THAT WE CAN SEE WHAT HAPPENS HE GETS BETTER AND WHETHER NOT HIS AFIB WILL NEED TO BE CONTROLLED. AT THIS POINT IF NOT WILL NEED TO FOLLOW UP WITH DR. FLORES IN 2 WEEKS ON DISCHARGE. MACROCYTIC ANEMIA. SECONDARY ALCOHOL ON MULTIVITAMIN HYPERTENSION. DOING WELL. DEPRESSION. I STILL FEELS IT IS VERY DIFFICULT TO READ A ACTIVELY DRINKING ALCOHOLIC. BUT HE SEEMS TO BE DOING OKAY THERE IS NO CHANGE. PROLONGED QT. RESOLVED. DISPOSITION. WERE HOPING THAT WE WILL BE ACCEPTED BY [facility] TODAY IF NOT PROBABLY WILL NEED TO GO HOME TOMORROW WITH HOME HEALTH. AT THIS POINT THERE IS NO REAL OTHER REASON THAN GETTING STRENGTH AND GETTING WAY FROM ALCOHOL TO HAVE HIM IN THE HOSPITAL. CERTAINLY WE HAVE MADE PROGRESS OVER THE LAST 48 HOURS I STILL DO NOT THINK WERE AT OR NEAR BASELINE AND THAT IS MY GREATEST CONCERN. HOPEFULLY WE CAN GET SOME REHAB TIME TO GET HIS STRENGTH ENOUGH TO WHERE HE CAN NOT CARE FOR HIMSELF FULLY. OTHERWISE WE RUN THE RISK OF HIM RELAPSING BOTH WITHOUT THE HA AND HOSPITALIZATION. HE UNDERSTANDS SOCIAL SERVICE HAS BEEN GREAT WITH WORKING THROUGH THIS AND WE WILL FOLLOW. Time Spent With Patient Critical Care time: I spent a total of [] minutes of critical care time on this patient's care today; this time is exclusive of procedural time.
[2020-11-16 15:25] VITALS: BP 105/56; PULSE 88; RESP 17; TEMP 36.1; O2SAT 95
--- NOTE | 2020-11-16 16:21 | PT-IP ANOTE ---
Pt unavailable x2 this PM. On first attempt, he was working with OT. On second attempt, he was being evaluated by potential SNF. Will follow up Monday AM.
[2020-11-16 20:15] VITALS: BP 125/92; PULSE 72; RESP 17; TEMP 36.3; O2SAT 100
--- NOTE | 2020-11-16 23:33 | PC.NURSE ---
patient had a good evening, denies pain/discomfort. pleasantly confused, ambulating w/ steady gait to/from bathroom. [facility] insurance account representative here to assess patient for admission to their facility. quick update given to Tiffanie. she thanked us for our care and said she would f/u w/ our community planner. call from thru the shift, she was also updated on patient's good evening, and tentative plans for d/c tomorrow to [facility] for therapy and strengthening. no seizure activity, patient has been appropriate. call light w/in reach. Bed alarm is on.
[2020-11-16 23:35] VITALS: BP 131/81; PULSE 64; RESP 18; TEMP 36.3; O2SAT 98
[2020-11-17 03:12] VITALS: BP 130/75; PULSE 70; RESP 18; TEMP 36.6; O2SAT 97
[2020-11-17 08:00] VITALS: BP 91/60; PULSE 84; RESP 18; TEMP 36.6; O2SAT 98
[2020-11-17] MEDS: FOLIC ACID 1 MG TABLET PO (08:42)
[2020-11-17] MEDS: MULTIVITAMIN 1 TABLET 1 TAB PO (08:43)
[2020-11-17] MEDS: SODIUM CHLORIDE 0.9% FLUSH 10 ML IV (08:43)
[2020-11-17] MEDS: ENOXAPARIN 40 MG/0.4 ML SYRINGE SUBCUT (08:43)
[2020-11-17] MEDS: CYANOCOBALAMIN 1,000 MCG/ML VIAL 1000 MCG SUBCUT (08:44)
--- NOTE | 2020-11-17 09:04 | P.DS_ITS ---
History of Present Illness History of Present Illness Date Patient Seen: 11/17/20 Time Patient Seen: 09:05 Chief complaint: seizure Narrative: Patient presents with seizure in setting of heavy alcohol use. Tonic Clonic seizure witnessed by brother who was visiting town in consequence to which patient evidently decreased alcohol intake to some whiskey last night, h group home bottle of wine today, he usually drinks more than that per patient. ? Prior admission in August for similar issue with new afib at that time which seems to have continued today.? He is prescribed but does not take metoprolol tartrate 50 bid. Received phenobarb in ED.? On interview today, patient is alert and interactive but disoriented and can be confabulative, producing scant dark urine. Desires full code.? Spoke with his Marya ([phone]) currently in [place] who is MDM. He also has brother in [place] ([phone]). Family is aware of situation and that placement may be necessary. Discharge Providers Provider Date of admission: 11/08/20 09:14 Discharge Date: 11/17/20 Primary care physician: Cris Reyna MD Consults: 11/07/20 18:38 Consult to Dietitian, Adult Routine Comment: Reason For Exam: suspect malnutrition 11/11/20 14:07 Consult to Occupational Therapy Evaluate & Treat Comment: Physician Instructions: Evaluate and treat Consult to Physical Therapy Evaluate & Treat Comment: Physician Instructions: Evaluate and Treat 11/12/20 11:58 Consult to Home Health Routine Comment: Reason For Exam: Home health upon DC Discharge provider: Cris Reyna MD Summary Hospital Course Discharge Diagnosis: 1.? Acute alcohol withdrawal, status post seizure 2.? Macrocytic anemia, chronic, secondary to alcoholism 3.? Atrial fibrillation, persistent 4. Heart failure with preserved ejection fraction 5. Prolonged QT due to electrolyte derangement, resolved 6.? Hypertension, chronic 7.? 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 Depression Hospital Course: Hospital Course: Patient went through an unremarkable alcohol detoxification per [facility] protocol.? He normally does not take his diltiazem and metoprolol at home and refused several doses while in the hospital.? Planned discharge last week cancelled after he became hypotensive and signficantly orhotstatic with physical therapy. EKG showed prolonged QT interval that resolved with magnesium and potassium repletion. Blood pressures were watched closely during this time and patient did not need his usual chronic medications, rate has been normal. In the last 4 days, patient has stated that he doesn't want to drink anymore and plans have been made for SNF to assist him with ADLs and ongoing physical therapy as he at high risk for relapsing at home. Risk factors include social isolation, depression, and residual dementia from his a lcohol usage and withdrawal seizures. Plan will be to follow up in 1 week in the clinic.? Will continue to work on mental health care and connect patient to resources in the outpatient setting. He has been encouraged to call his AA sponsor. Goals at follow-up visit will be to perform an EKG, coordinate with Dr. San regarding ongoing management of his atrial fibrillation in the setting of rate control and labile pressures (averaging in the low range) and check CMP, Mg, and Vitamin B12. He will be discharged on oral vitamin B12. Time spent on Discharge and Coordination of post-hospital care: 35 minutes. Exam Vital Signs (past 8 hours): - 11/17/20 03:12 11/17/20 08:00 Temperature 97.8 F 98 F Pulse Rate 70 84 Respiratory Rate 18 18 Blood Pressure 130/75 91/60 Pulse Oximetry 97 98 Oxygen Delivery Method Room Air Oxygen Flow Rate 0 Narrative Exam Narrative: GENERAL:? Alert today, oriented, appearing stated age and in no acute distress. HEENT:? Head normocephalic/atraumatic. CV:? Normal S1 and S2 with regular rate and rhythm, no audible murmurs, rubs or gallops. ABDOMEN:? Soft, non-tender, non-distended, no organomegaly.? Positive bowel sounds. EXTREMITIES:? No clubbing, cyanosis, or edema. NEURO:? Cranial nerves II through XII grossly intact, no focal deficits. PSYCH:? Alert and oriented x 3. SKIN:? No concerning lesions. Objective Labs Result Diagrams: 11/15/20 04:44 11/15/20 04:44 [facility] Medical History (Updated 11/07/20 @ 22:03 by Collins Bravo MD) Alcohol abuse Atrial fibrillation Gout HTN (hypertension) Social History marital status: household members: spouse occupational status: previously employed Smoking Status: Former smoker alcohol intake: current substance use type: does not use Discharge Plan Discharge Plan Patient Disposition: SNF Transfer to: [facility] Discharge orders & Medications Prescriptions: New folic acid 1 mg Tablet 1 mg PO DAILY Qty: 90 RF: 3 multivitamin with folic acid [Tab-A-Cherri] 400 mcg Tablet 1 tab PO DAILY Qty: 90 RF: 3 cyanocobalamin (vitamin B-12) 1,000 mcg capsule 1,000 mcg PO DAILY Qty: 90 RF: 1 Discontinued metoprolol tartrate 50 mg tablet 50 mg PO BID Qty: 60 RF: 0 diltiazem HCl 120 mg capsule,extended release 24 hr 120 mg PO DAILY RF: 0 Medication counseling provided by Pharmacist: Yes Follow up/Referrals: Cris Reyna MD [Primary Care Provider] - Diet/Activity/Treatments Diet: Regular Activity: No driving Skin/Wound/Dressing Care Report to your healthcare provider any signs of infection, such as:: chills, fever and increased pain Special Rehabilitation Services Rehab type: Physical therapy and Occupational therapy Restrictions to mobility: fall risk Visit Report/Discharge Packet Instructions: Depression in Men: How Is It Different?, Drug and Alcohol Withdrawal Discharge Data Primary Care Provider: Cris Reyna
--- NOTE | 2020-11-17 09:37 | OT.IP.TRT ---
Current Diagnoses Other specified diseases of blood and blood-forming organs (11/08/20) Alcohol dependence with withdrawal, unspecified (11/08/20) Unspecified atrial fibrillation (11/08/20) Unspecified convulsions (11/08/20) Other specified abnormal findings of blood chemistry (11/08/20) Occupational Therapy Treatment Note M2 OT-IP Current Condition Start: 11/12/20 12:50 Freq: Status: Active Protocol: Document 11/12/20 11:39 [facility] (Rec: 11/12/20 13:17 [facility] [id number]) Occupational Therapy Current Condition Current Condition Evaluation Date 11/12/20 Treatment Diagnosis ETOH withdrawl, s/p seizure Diagnosis Onset Date 11/08/20 M3 OT- IP Subjective and Pain Start: 11/12/20 12:50 Freq: Status: Active Protocol: Document 11/17/20 09:23 [facility] (Rec: 11/17/20 09:37 [facility] [id number]) OT- Subjective Occupational Therapy Visit Type Type Treatment Note Visit Start Time 08:58 Visit Stop Time 09:22 Total Visit Minutes 24 Occupational Therapy Visit Comments Patient Comments Pt wanting to go to the sink to try to get something stuck from out of his teeth. Patient/Caregiver Goals TO go home. OT Pain Assessment Pain When Pain Assessed During Mobility Pain Present Pain Present Pain Reported M4 OT- IP ADL's Start: 11/12/20 12:50 Freq: Status: Active Protocol: Document 11/17/20 09:23 [facility] (Rec: 11/17/20 09:37 [facility] [id number]) OT EIQ-Onbz-Uanoipe General Evaluation Self-Feeding Ability Independent OT ADL-Grooming General Evaluation Grooming Ability Independent OT ADL-Oral Care General Eval Oral Care Ability Independent Comments Oral Care Comments ABle to do while standing. OT ADL-Dressing General Eval Lower Body Dressing Ability Independent Comments OT Dressing Comments Able to educated pt to place his foot up on the recliner or on a stool to increase ease for LB dressing needs. Pt able to now ishan/doff his socks. Pt also shown how to do some stretching so able to move easier in order to ishan/doff his socks. OT ADL-Toileting Comments OT Toileting Comments not performed OT ADL-Bathing Comments OT Bathing Comments Not performed. M5 OT- IP IADL's Start: 11/12/20 12:50 Freq: Status: Active Protocol: Document 11/12/20 11:39 [facility] (Rec: 11/12/20 13:17 [facility] [id number]) OT-Instrumental Activities of Daily Living Home Safety Awareness Ability to Problem Solve Emergency Able to Problem Solve Situations Home Safety Comments Pt able to answer all home safety situations with good accuracy. Medication Management Medication Management Comments Pt states that he often forgets to take his medications. Money Management Money Management Comments Pt states his pays the bills but not sure how. Meal Preparation Meal Preparation Comments Pt states just mainly uses the microwave for his food needs. Driving Driving Concerns Identified Regarding Safety M6 OT- IP Functional Cognition Start: 11/12/20 12:50 Freq: Status: Active Protocol: Document 11/17/20 09:23 [facility] (Rec: 11/17/20 09:37 [facility] [id number]) Cognitive Factors Limiting Selfcare Function Cognitive Comments Cognitive Assessment Comments Pt continues to have difficulty with his memory and does not recall to use FWW , however his overall balance has improved and for this session able to walk in the room with distant SBA and no device. Pt initially go to the sink and complaining of being woozy and then afterwards states that he was not woozy but that his back hurt and had to sit. M7 OT- IP Mobility and Balance Start: 11/12/20 12:50 Freq: Status: Active Protocol: Document 11/17/20 09:23 [facility] (Rec: 11/17/20 09:37 [facility] [id number]) OT- Bed Mobility Assessment Supine to Sit Supine to Sit Assist Standby Assistance OT-Transfer Assessment Sit to and From Stand Sit to and from Stand Standby Assistance Transfers Transfer Ability Standby Assistance Technique Transfer Destination Chair Transfer Technique Stand Pivot Devices Transfer Assistive Devices None Comments Mobility Comments Pt close SBA and able to walk in the room without a device. Sitting BP 88/53 and 85/45, after standing 75/52/ and back sitting 101/55 and after standing again 80/56. OT- Balance Assessment Sitting Balance and Reactions Static Sitting Balance Ability Normal Dynamic Sitting Balance Ability Good Standing Balance and Reactions Static Standing Balance Ability Good M8 OT- IP Objective Assessments Start: 11/12/20 12:50 Freq: Status: Active Protocol: Document 11/12/20 11:39 [facility] (Rec: 11/12/20 13:17 [facility] [id number]) OT Gross Range of Motion Upper Extremity Range of Motion Assessment Within Functional Limits OT Strength Upper Extremity Strength Assessment Within Functional Limits OT- Coordination Assessment Upper Extremity Finger to Nose Test Within Functional Limits OT-Muscle Tone Assessment Muscle Tone WNL Yes M9 OT- IP Assessment and Plan Start: 11/12/20 12:50 Freq: Status: Active Protocol: Document 11/17/20 09:23 [facility] (Rec: 11/17/20 09:37 [facility] [id number]) OT Summary Assessment and Plan Potential Rehabilitation Potential Good Analytic Complexity at Evaluation Moderate Summary OT Impairments Pain,Balance,Functional Cognition,Functional Mobility, Dressing,Toileting,Bathing, Toilet Transfers,Shower Transfers,Activity Tolerance Progress Towards Goals Progressing Toward Goals Assessment Summary Pt mainly complaining of back pain, however today able to independently ishan/doff his socks. Pt continues to has decreased activity tolerance which is also affected by his back pain. Pt looking to go to skilled rehab today. Goals Toileting Goal Independent Bathing Goal Independent Shower Transfer Goal Independent Days to Meet Goals 7 Frequency of Treatment Frequency Of Treatment Once a Day Treatment Plan OT Treatment Plan ADL Training,Functional Cognition Training,Functional Mobility,Patient/Family Education,Discharge Planning Other Treatment Recommendations and Next endurance Treatment Focus Discharge Recommendations OT Discharge Recommendations Home with 05/09 Assist Available,Home Health,SNF Rehab,Home vs SNF Transportation Needs at Discharge Private Vehicle,Wheelchair/ Cabulance
--- NOTE | 2020-11-17 12:10 | PT-IP ANOTE ---
checked on pt at 1110am but pt was about to take a shower. [facility] stated that pt will d/c at 12nn.
--- NOTE | 2020-11-17 14:16 | CM.DPNOTE ---
Faxed med list, PASRR and order and updated PT notes to [facility] and received fax conf. Jennifer Mccallum CM Asst
--- NOTE | 2020-11-17 14:39 | PC.NURSE ---
Pt A&OX2-3 VSS, afebrile on RA. SBA with ambulation, denies feeling dizzy this a.m. after shower. Cooperative with PT/OT, continues to have low blood pressures. Per MD Pt cleared for discharge to [facility]. Pt verbalizes understanding and is in agreement with plan of care. Pt transporter arrived this afternoon. Rapid COVID test sent, Transporter given patient discharge packet report is called to [facility] at 1440. Facility Designee awaited result of COVID tests, then transported patient via w/ch to [facility] this afternoon.
[2020-11-17 14:49] LABS: COVID19 -Nasal RAPID Negative (Negative)
--- NOTE | 2020-11-17 14:57 | PT-IP ANOTE ---
1355: checked on pt and pt refused PT. pt was supposed to d/c at 12nn. checked with behavioral health case manager and stated that d/c was moved to 2pm.
--- NOTE | 2020-11-17 15:18 | CM.DPC ---
DCP/continued: Reviewed chart. [facility] came to do bedside evaluation last pm. Received message from Tiffanie at [facility] this AM. She reports that they can accept. LITIGATION PARTNER met with patient this AM and he continues to agree to short SNF stay. Spoke with Dr. Reyna this AM she is in agreement with plan and will write orders. Patient requesting that CM team call his x- to update her on plan which was done. No additional needs identified. LITIGATION PARTNER asked JOSIAS/Jennifer to coordinate/finalize d/c plan. P: [facility] today. LUZ
[2020-11-17 15:53] LABS: COVID-19 CEPHEID PCR (VTM/NP) Negative (Negative)
== END 2020-11-17 14:53 | DRG 896 ==
LOC: ED 18:20 → ICU 21:16 → AC 11-09 06:57 → ICU 11-09 06:58 → AC 11-11 11:55
PROVIDERS: Family Medicine; Admitting Provider Family Medicine; Emergency Provider Emergency Medicine; PCP Student in an Organized Health Care Education/Training Program; Referring Provider Emergency Medicine; Visit Provider Family Medicine
DX: F10.139 Alcohol abuse with withdrawal, unspecified (principal); I50.31 Acute diastolic (congestive) heart failure; I48.19 Other persistent atrial fibrillation; E83.42 Hypomagnesemia; R56.9 Unspecified convulsions; I95.9 Hypotension, unspecified; R94.31 Abnormal electrocardiogram [ECG] [EKG]; F03.90 Unspecified dementia, unspecified severity, without behavioral disturbance, psychotic disturbance, mood disturbance, and anxiety; D53.9 Nutritional anemia, unspecified; I10 Essential (primary) hypertension; F32.A Depression, unspecified; Z91.14 Patient's other noncompliance with medication regimen; Z20.822 Contact with and (suspected) exposure to COVID-19; Z87.891 Personal history of nicotine dependence; Z23 Encounter for immunization
CPT/HCPCS: 36415; 70450; 71045; 80048; 80053; 80305; 80320; 81001; 81003; 82550; 82607; 82746; 82962; 83735; 83880; 84100; 84146; 84443; 84484; 85025; 87635; 87797; 90471; 90662; 93005; 93306; 94762; 96374; 97116; 97162; 97166; 97530; 97535; 99285; C9803; G0378; U0003; J1630; J1650; J1940; J2060; J2560; J3360; J3420; J3475

== ENCOUNTER 2021-04-09 16:54 | Inpatient (IN) | payer MEDICARE, OTHER, SELFPAY ==
[2019-07-03 21:02] VITALS: PULSE 98; RESP 16; O2SAT 98
[2020-11-07 19:41] VITALS: BMI 23.4
[2021-04-09] VITALS (15 sets, daily range): BP systolic 124–154; BP diastolic 65–88; PULSE 71–115; RESP 16–33; TEMP 36.3–37.4; O2SAT 92–99; BMI 24.3
--- NOTE | 2021-04-09 17:29 | ED.SOB ---
HPI - SOB/Dyspnea <Bg Miramontes MD - Last Filed: 04/15/21 01:31> General Chief Complaint: Shortness of Breath/Dyspnea Stated Complaint: afib, SOB, loss of balance Time Seen by Provider: 04/09/21 17:17 Source: patient and other Mode of arrival: Wheelchair Limitations: no limitations History of Present Illness HPI Narrative: Patient brought here by his friend. Complains onset 2 days of dyspnea and feeling shaky. Patient has history alcohol abuse, drinks bourbon daily. Patient has history atrial fibrillation is noncompliant with his medications. Is not anticoagulated. Has seen [facility] cardiology in the past Dr. San, primary care physician is Dr. Reyna. Patient admitted last year for atrial fibrillation and alcohol withdrawal. Has history of alcohol seizures as well. Patient denies any recent illness. Denies any falls or injuries. Denies any seizures. Patient is awake and alert oriented to self and date of and his home address. Patient is tremulous. Has episodic tachypnea. Patient has had extensive radiographic studies last year for his admissions including CT of the head and CT of the chest for PE rule out. Echocardiogram was done last November 2020 during admission. Ejection fraction 55% friend at bedside is Sergio de anda. Patient does have a prescription dated March 31, [address] Chowdary, for diazepam. Possibly [facility]. However, patient is a poor historian. Please see notes from previous visits as patient is known to be a poor historian. He does not recall this prescription and being at any recent medical institution. Related Data Home Medications Medication Instructions Recorded Confirmed metoprolol succinate 25 mg 25 mg PO DAILY 04/09/21 04/09/21 tablet,extended release 24 hr trazodone 50 mg tablet 50 mg PO BEDTIME 04/09/21 04/09/21 Previous Rx's Medication Instructions Recorded folic acid 1 mg tablet 1 mg PO DAILY #90 tab 11/12/20 multivitamin with folic acid 400 1 tab PO DAILY #90 tab 11/12/20 mcg tablet (Tab-A-Cherri) cyanocobalamin (vitamin B-12) 1,000 mcg PO DAILY #90 cap 11/17/20 1,000 mcg capsule Allergies Allergy/AdvReac Type Severity Reaction Status Date / Time amoxicillin [AMOXICILLIN] Allergy Severe SWOLLEN JAW Verified 11/07/20 16:45 clindamycin [CLINDAMYCIN] AdvReac Severe C-DIFF Verified 11/07/20 16:45 Review of Systems <Bg Miramontes MD - Last Filed: 04/15/21 01:31> Review of Systems Narrative: GENERAL: Denies chills, fatigue, malaise, fever, sweats. HEENT: Denies sinus pain, ear pain, sore throat RESPIRATORY: Positive for dyspnea, negative for cough CARDIOVASCULAR: Denies chest pain, palpitations GASTROINTESTINAL: Denies nausea, vomiting, abdominal pain : Denies dysuria, frequency, hematuria MUSCULOSKELETAL: denies muscle or bony pain SKIN: Denies rash, skin lesions NEUROLOGIC: Denies weakness, numbness, negative for seizure ROS Unobtainable: All systems reviewed & are unremarkable except as noted in HPI and below Patient History <Bg Miramontes MD - Last Filed: 04/15/21 01:31> Medical History Alcohol abuse Atrial fibrillation Gout HTN (hypertension) Social History marital status: household members: spouse and none occupational status: previously employed Smoking Status: Former smoker alcohol intake: current substance use type: does not use Smoking Status: Former smoker alcohol intake frequency: 3 or more drinks per day Alcohol type: beer, wine and hard liquor Substance Use Type: does not use Exam <Bg Miramontes MD - Last Filed: 04/15/21 01:31> Narrative Exam Narrative: GENERAL: in no distress, not toxic not dyspneic HEAD: Normocephalic. EYES: Pupils equal round No scleral icterus. ENT: Mucous membranes moist. NECK: Trachea midline. CARDIOVASCULAR: Irregularly irregular, not tachycardic RESPIRATORY: Clear to auscultation. Breath sounds equal bilaterally. No wheezes, rales, or rhonchi. GASTROINTESTINAL: Abdomen soft, non-tender EXTREMITIES: No gross deformities. BACK: No flank tenderness. NEURO: AOx4. SKIN: Warm and dry PSYCH: Not anxious, is cooperative Initial Vital Signs Initial Vital Signs: Vital Signs Temperature 97.4 F L 04/09/21 17:11 Pulse Rate 115 H 04/09/21 17:11 Respiratory Rate 28 H 04/09/21 17:11 Blood Pressure 154/77 H 04/09/21 17:11 Pulse Oximetry 98 04/09/21 17:11 <Justin Rasmussen DO - Last Filed: 04/10/21 01:48> Initial Vital Signs Initial Vital Signs: Vital Signs Temperature 97.4 F L 04/09/21 17:11 Pulse Rate 115 H 04/09/21 17:11 Respiratory Rate 28 H 04/09/21 17:11 Blood Pressure 154/77 H 04/09/21 17:11 Pulse Oximetry 98 04/09/21 17:11 Course <Bg Miramontes MD - Last Filed: 04/15/21 01:31> Course Course Narrative: 6:00 p.m.. Sign out to Dr. Rasmussen, awaiting laboratory results. Will likely need admission to Dr. Reyna for alcohol withdrawal. [facility] protocol started. Orders Ordered: Discontinued Medications Acetaminophen (Acetaminophen 325 Mg Tablet) 650 mg PO Q6HR PRN PRN Reason: Fever Clonidine HCl (Clonidine 0.1 Mg Tablet) 0.1 mg PO Q4HR PRN PRN Reason: Alcohol Withdrawal Cyanocobalamin (Cyanocobalamin (Vitamin B-12) 500 Mcg Tablet) 1,000 mcg PO DAILY [facility] Last Admin: 04/11/21 08:43 Dose: 1,000 mcg Documented by: Admin: 04/11/21 08:40 Dose: Not Given Documented by: Admin: 04/10/21 10:13 Dose: 1,000 mcg Documented by: NIA Docusate Sodium (Docusate 100 Mg Capsule) 100 mg PO BID PRN PRN Reason: constipation Enoxaparin Sodium (Enoxaparin 40 Mg/0.4 Ml Syringe) 40 mg SUBCUT DAILY [facility] Last Admin: 04/11/21 08:38 Dose: 40 mg Documented by: Admin: 04/10/21 08:13 Dose: 40 mg Documented by: NIA Folic Acid (Folic Acid 1 Mg Tablet) 1 mg PO DAILY [facility] Last Admin: 04/11/21 08:38 Dose: 1 mg Documented by: Admin: 04/10/21 08:14 Dose: 1 mg Documented by: NIA Furosemide (Furosemide 20 Mg/2 Ml Vial) 20 mg IV NOW ONE Stop: 04/11/21 11:02 Last Admin: 04/11/21 11:25 Dose: 20 mg Documented by: NEWTON Haloperidol (Haloperidol 5 Mg/Ml Vial) 5 mg IV Q1HR PRN PRN Reason: Hallucinations Magnesium Sulfate (Magnesium Sulfate) 2 gm in 50 mls @ 25 mls/hr IV NOW ONE Stop: 04/09/21 20:48 Last Infusion: 04/09/21 21:49 Dose: 0 mls/hr Documented by: EMMANUEL Cosigned by: [email or web address] Infusion: 04/09/21 19:13 Dose: 25 mls/hr Documented by: SON Cosigned by: DREA Admin: 04/09/21 19:09 Dose: 125 mls/hr Documented by: SON Cosigned by: DREA Thiamine HCl 200 mg/ Sodium (Chloride) 102 mls @ 408 mls/hr IV NOW ONE Stop: 04/09/21 18:50 Last Infusion: 04/09/21 19:46 Dose: 0 mls/hr Documented by: Admin: 04/09/21 19:09 Dose: 408 mls/hr Documented by: SON Sodium Chloride (Normal Saline 0.9%) 1,000 mls @ 125 mls/hr IV CONT MIKEL Last Infusion: 04/10/21 15:16 Dose: 0 mls/hr Documented by: Infusion: 04/10/21 07:45 Dose: 0 mls/hr Documented by: Admin: 04/10/21 06:20 Dose: 125 mls/hr Documented by: Infusion: 04/10/21 06:20 Dose: 125 mls/hr Documented by: Admin: 04/10/21 00:02 Dose: 125 mls/hr Documented by: EMMANUEL Magnesium Sulfate (Magnesium Sulfate) 2 gm in 50 mls @ 25 mls/hr IV NOW ONE Stop: 04/11/21 12:58 Last Admin: 04/11/21 11:25 Dose: 25 mls/hr Documented by: NEWTON Cosigned by: ROSSY Lorazepam (Lorazepam 2 Mg/Ml Inj) 0.5 mg IV NOW ONE Stop: 04/09/21 17:30 Last Admin: 04/09/21 17:45 Dose: 0.5 mg Documented by: JENNIFER Lorazepam (Lorazepam 2 Mg/Ml Inj) 0 mg IV CIWAPRN PRN; Protocol PRN Reason: Alcohol Withdrawal Last Admin: 04/10/21 00:01 Dose: 1 mg Documented by: EMMANUEL Metoprolol Succinate (Metoprolol Er 25 Mg Tablet) 25 mg PO NOW ONE Stop: 04/09/21 17:36 Last Admin: 04/09/21 17:46 Dose: 25 mg Documented by: JENNIFER Metoprolol Succinate (Metoprolol Er 25 Mg Tablet) 25 mg PO DAILY [facility] Last Admin: 04/11/21 08:38 Dose: 25 mg Documented by: Admin: 04/10/21 08:14 Dose: 25 mg Documented by: NIA Multivitamins (Multivitamin 1 Tablet) 1 tab PO DAILY [facility] Last Admin: 04/11/21 08:39 Dose: 1 tab Documented by: Admin: 04/10/21 08:13 Dose: 1 tab Documented by: NIA Naloxone HCl (Naloxone 0.4 Mg/Ml Vial) 0.2 mg IV Q2MIN PRN PRN Reason: Opiate Reversal Ondansetron HCl (Ondansetron 4 Mg/2 Ml Inj) 4 mg IV Q4HR PRN PRN Reason: Nausea And Vomiting Pantoprazole Sodium (Pantoprazole 40 Mg Vial) 40 mg IV DAILY [facility] Last Admin: 04/11/21 08:38 Dose: 40 mg Documented by: Admin: 04/10/21 08:13 Dose: 40 mg Documented by: NIA Pantoprazole Sodium (Pantoprazole Dr 40 Mg Tablet) 40 mg PO 0600 [facility] Potassium Chloride (Potassium Chloride 20 Meq Tab) 20 meq PO NOW ONE Stop: 04/11/21 11:06 Last Admin: 04/11/21 11:24 Dose: 20 meq Documented by: NEWTON Thiamine HCl (Thiamine 100 Mg Tablet) 100 mg PO DAILY [facility] Stop: 04/12/21 09:01 Last Admin: 04/11/21 08:39 Dose: 100 mg Documented by: Admin: 04/10/21 08:13 Dose: 100 mg Documented by: Admin: 04/09/21 22:17 Dose: 100 mg Documented by: EMMANUEL Trazodone HCl (Trazodone 50 Mg Tablet) 50 mg PO BEDTIME [facility] Last Admin: 04/10/21 20:25 Dose: 50 mg Documented by: Admin: 04/09/21 22:17 Dose: 50 mg Documented by: EMMANUEL Vital Signs Vital signs: Vital Signs - 8 hr 04/09/21 18:00 04/09/21 18:30 04/09/21 18:45 Pulse Rate 89 96 H 88 Respiratory Rate 20 24 23 Blood Pressure 144/84 H 137/83 Pulse Oximetry 97 04/09/21 18:51 04/09/21 19:00 Pulse Rate 85 90 Respiratory Rate 19 Blood Pressure 137/83 135/86 Pulse Oximetry <Justin Rasmussen, DO - Last Filed: 04/10/21 01:48> Course Course Narrative: 6:00 p.m.. Sign out to Dr. Rasmussen, awaiting laboratory results. Will likely need admission to Dr. Reyna for alcohol withdrawal. [facility] protocol started. 1800 (Grady) received in sign-out from Dr. Miramontes. I have reviewed labs to this point and clinical course. Have performed an independent history and physical exam Orders Ordered: Discontinued Medications Acetaminophen (Acetaminophen 325 Mg Tablet) 650 mg PO Q6HR PRN PRN Reason: Fever Clonidine HCl (Clonidine 0.1 Mg Tablet) 0.1 mg PO Q4HR PRN PRN Reason: Alcohol Withdrawal Cyanocobalamin (Cyanocobalamin (Vitamin B-12) 500 Mcg Tablet) 1,000 mcg PO DAILY [facility] Last Admin: 04/11/21 08:43 Dose: 1,000 mcg Documented by: Admin: 04/11/21 08:40 Dose: Not Given Documented by: Admin: 04/10/21 10:13 Dose: 1,000 mcg Documented by: NIA Docusate Sodium (Docusate 100 Mg Capsule) 100 mg PO BID PRN PRN Reason: constipation Enoxaparin Sodium (Enoxaparin 40 Mg/0.4 Ml Syringe) 40 mg SUBCUT DAILY [facility] Last Admin: 04/11/21 08:38 Dose: 40 mg Documented by: Admin: 04/10/21 08:13 Dose: 40 mg Documented by: NIA Folic Acid (Folic Acid 1 Mg Tablet) 1 mg PO DAILY [facility] Last Admin: 04/11/21 08:38 Dose: 1 mg Documented by: Admin: 04/10/21 08:14 Dose: 1 mg Documented by: NIA Furosemide (Furosemide 20 Mg/2 Ml Vial) 20 mg IV NOW ONE Stop: 04/11/21 11:02 Last Admin: 04/11/21 11:25 Dose: 20 mg Documented by: NEWTON Haloperidol (Haloperidol 5 Mg/Ml Vial) 5 mg IV Q1HR PRN PRN Reason: Hallucinations Magnesium Sulfate (Magnesium Sulfate) 2 gm in 50 mls @ 25 mls/hr IV NOW ONE Stop: 04/09/21 20:48 Last Infusion: 04/09/21 21:49 Dose: 0 mls/hr Documented by: EMMANUEL Cosigned by: TRANHEEL Infusion: 04/09/21 19:13 Dose: 25 mls/hr Documented by: SON Cosigned by: DREA Admin: 04/09/21 19:09 Dose: 125 mls/hr Documented by: SON Cosigned by: DREA Thiamine HCl 200 mg/ Sodium (Chloride) 102 mls @ 408 mls/hr IV NOW ONE Stop: 04/09/21 18:50 Last Infusion: 04/09/21 19:46 Dose: 0 mls/hr Documented by: Admin: 04/09/21 19:09 Dose: 408 mls/hr Documented by: OSN Sodium Chloride (Normal Saline 0.9%) 1,000 mls @ 125 mls/hr IV CONT MIKEL Last Infusion: 04/10/21 15:16 Dose: 0 mls/hr Documented by: Infusion: 04/10/21 07:45 Dose: 0 mls/hr Documented by: Admin: 04/10/21 06:20 Dose: 125 mls/hr Documented by: Infusion: 04/10/21 06:20 Dose: 125 mls/hr Documented by: Admin: 04/10/21 00:02 Dose: 125 mls/hr Documented by: EMMANUEL Magnesium Sulfate (Magnesium Sulfate) 2 gm in 50 mls @ 25 mls/hr IV NOW ONE Stop: 04/11/21 12:58 Last Admin: 04/11/21 11:25 Dose: 25 mls/hr Documented by: NEWTON Cosigned by: ROSSY Lorazepam (Lorazepam 2 Mg/Ml Inj) 0.5 mg IV NOW ONE Stop: 04/09/21 17:30 Last Admin: 04/09/21 17:45 Dose: 0.5 mg Documented by: JENNIFER Lorazepam (Lorazepam 2 Mg/Ml Inj) 0 mg IV CIWAPRN PRN; Protocol PRN Reason: Alcohol Withdrawal Last Admin: 04/10/21 00:01 Dose: 1 mg Documented by: EMMANUEL Metoprolol Succinate (Metoprolol Er 25 Mg Tablet) 25 mg PO NOW ONE Stop: 04/09/21 17:36 Last Admin: 04/09/21 17:46 Dose: 25 mg Documented by: JENNIFER Metoprolol Succinate (Metoprolol Er 25 Mg Tablet) 25 mg PO DAILY [facility] Last Admin: 04/11/21 08:38 Dose: 25 mg Documented by: Admin: 04/10/21 08:14 Dose: 25 mg Documented by: NIA Multivitamins (Multivitamin 1 Tablet) 1 tab PO DAILY [facility] Last Admin: 04/11/21 08:39 Dose: 1 tab Documented by: Admin: 04/10/21 08:13 Dose: 1 tab Documented by: NIA Naloxone HCl (Naloxone 0.4 Mg/Ml Vial) 0.2 mg IV Q2MIN PRN PRN Reason: Opiate Reversal Ondansetron HCl (Ondansetron 4 Mg/2 Ml Inj) 4 mg IV Q4HR PRN PRN Reason: Nausea And Vomiting Pantoprazole Sodium (Pantoprazole 40 Mg Vial) 40 mg IV DAILY [facility] Last Admin: 04/11/21 08:38 Dose: 40 mg Documented by: Admin: 04/10/21 08:13 Dose: 40 mg Documented by: NIA Pantoprazole Sodium (Pantoprazole Dr 40 Mg Tablet) 40 mg PO 0600 [facility] Potassium Chloride (Potassium Chloride 20 Meq Tab) 20 meq PO NOW ONE Stop: 04/11/21 11:06 Last Admin: 04/11/21 11:24 Dose: 20 meq Documented by: NEWTON Thiamine HCl (Thiamine 100 Mg Tablet) 100 mg PO DAILY [facility] Stop: 04/12/21 09:01 Last Admin: 04/11/21 08:39 Dose: 100 mg Documented by: Admin: 04/10/21 08:13 Dose: 100 mg Documented by: Admin: 04/09/21 22:17 Dose: 100 mg Documented by: EMMANUEL Trazodone HCl (Trazodone 50 Mg Tablet) 50 mg PO BEDTIME [facility] Last Admin: 04/10/21 20:25 Dose: 50 mg Documented by: Admin: 04/09/21 22:17 Dose: 50 mg Documented by: EMMANUEL Vital Signs Vital signs: Vital Signs - 8 hr 04/09/21 18:00 04/09/21 18:30 04/09/21 18:45 Pulse Rate 89 96 H 88 Respiratory Rate 20 24 23 Blood Pressure 144/84 H 137/83 Pulse Oximetry 97 04/09/21 18:51 04/09/21 19:00 Pulse Rate 85 90 Respiratory Rate 19 Blood Pressure 137/83 135/86 Pulse Oximetry MDM - SOB/Dyspnea <Bg Miramontes MD - Last Filed: 04/15/21 01:31> Lab Data Result diagrams: 04/11/21 06:45 04/11/21 06:45 Labs: Lab Results 04/09/21 04/09/21 04/09/21 Range/Units 17:30 17:30 17:30 WBC 5.5 (4.5-11.0) X10^3/uL RBC 3.56 L (4.5-5.9) X10^6/uL Hgb 11.7 L (13.5-17.5) g/dL Hct 35.0 L (41-53) % MCV 98.2 (80-100) fL MCH 33.0 (26-34) PG MCHC 33.6 (30-36) % RDW 16.2 H (11.6-14.8) % Plt Count 221 (150-400) X10^3/uL Neut % (Auto) 73.2 (50-75) % Lymph % (Auto) 10.2 L (25-40) % [place] % (Auto) 15.0 H (3-14) % Eos % (Auto) 0.2 L (2-4) % Baso % (Auto) 1.4 (0-2) % Neut # (Auto) 4000 (5822-1347) /uL Lymph # (Auto) 600 L (6265-0330) /uL [place] # (Auto) 800 (0-900) /uL Eos # (Auto) 0 (0-450) /uL Baso # (Auto) 100 (0-100) /uL Sodium 138 (137-145) mmol/L Potassium 4.7 (3.4-5.1) mmol/L Chloride 103 (98-107) mmol/L Carbon Dioxide 28 (22-32) mmol/L BUN 20 (9-20) mg/dL Creatinine 1.10 (0.66-1.25) mg/dL Estimated GFR > 60.0 (>60) mL/min BUN/Creatinine Ratio 18.2 (6-22) Glucose 255 H (80-110) mg/dL Calcium 9.0 (8.4-10.2) mg/dL Magnesium 1.5 L (1.6-2.3) mg/dL Total Bilirubin 0.8 (0.2-1.3) mg/dL AST 54 (17-59) IU/L ALT 48 (<50) IU/L Alkaline Phosphatase 68 (38-126) U/L Total Protein 6.7 (6.3-8.2) g/dL Albumin 4.0 (3.5-5.0) g/dL Globulin 2.7 (1.7-4.1) g/dL Albumin/Globulin Ratio 1.5 (1.0-2.8) Lipase 197 (23-300) U/L Ethyl Alcohol < 10 ( - 10) mg/dL SARS-CoV-2 (PCR) Negative (Negative) ECG Data Interpretation: Atrial fibrillation, no RVR, rate 95. No ST elevation or depression MDM Narrative Medical decision making narrative: Patient likely not a candidate for anticoagulation given alcohol abuse with high risk of falling. At this time no cardioversion indicated as it is rate controlled. Patient not in extremis. No hypotension. <Justin Rasmussen DO - Last Filed: 04/10/21 01:48> Lab Data Labs: Lab Results 04/09/21 04/09/21 04/09/21 Range/Units 17:30 17:30 17:30 WBC 5.5 (4.5-11.0) X10^3/uL RBC 3.56 L (4.5-5.9) X10^6/uL Hgb 11.7 L (13.5-17.5) g/dL Hct 35.0 L (41-53) % MCV 98.2 (80-100) fL MCH 33.0 (26-34) PG MCHC 33.6 (30-36) % RDW 16.2 H (11.6-14.8) % Plt Count 221 (150-400) X10^3/uL Neut % (Auto) 73.2 (50-75) % Lymph % (Auto) 10.2 L (25-40) % [place] % (Auto) 15.0 H (3-14) % Eos % (Auto) 0.2 L (2-4) % Baso % (Auto) 1.4 (0-2) % Neut # (Auto) 4000 (7456-5974) /uL Lymph # (Auto) 600 L (3513-3241) /uL [place] # (Auto) 800 (0-900) /uL Eos # (Auto) 0 (0-450) /uL Baso # (Auto) 100 (0-100) /uL Sodium 138 (137-145) mmol/L Potassium 4.7 (3.4-5.1) mmol/L Chloride 103 (98-107) mmol/L Carbon Dioxide 28 (22-32) mmol/L BUN 20 (9-20) mg/dL Creatinine 1.10 (0.66-1.25) mg/dL Estimated GFR > 60.0 (>60) mL/min BUN/Creatinine Ratio 18.2 (6-22) Glucose 255 H (80-110) mg/dL Calcium 9.0 (8.4-10.2) mg/dL Magnesium 1.5 L (1.6-2.3) mg/dL Total Bilirubin 0.8 (0.2-1.3) mg/dL AST 54 (17-59) IU/L ALT 48 (<50) IU/L Alkaline Phosphatase 68 (38-126) U/L Total Protein 6.7 (6.3-8.2) g/dL Albumin 4.0 (3.5-5.0) g/dL Globulin 2.7 (1.7-4.1) g/dL Albumin/Globulin Ratio 1.5 (1.0-2.8) Lipase 197 (23-300) U/L Ethyl Alcohol < 10 ( - 10) mg/dL SARS-CoV-2 (PCR) Negative (Negative) Discharge Plan Departure Patient Disposition: Admitted As Inpatient Clinical Impression: Alcohol withdrawal, Atrial fibrillation Admit Date/Time: 04/09/21 19:03 Admit Provider: Cris Reyna
[2021-04-09 17:44] LABS: Add Manual Diff / Slide Review NO; Basophils Absolute Auto 100 /uL (0-100); Basophils Percent Auto 1.4 % (0-2); Eosinophils Absolute Auto 0 /uL (0-450); Eosinophils Percent Auto 0.2 % (2-4); Hemoglobin 11.7 g/dL (13.5-17.5); Lymphocytes Absolute Auto 600 /uL (1100-4500); Lymphocytes Percent Auto 10.2 % (25-40); Mean Corpuscular HGB Conc 33.6 % (30-36); Mean Corpuscular Volume 98.2 fL (80-100); Monocytes Absolute Auto 800 /uL (0-900); Neutrophils Absolute Auto 4000 /uL (1500-7000); Neutrophils Percent Auto 73.2 % (50-75); Platelet Count 221 X10^3/uL (150-400); Red Blood Cell Count 3.56 X10^6/uL (4.5-5.9); Red Cell Distribution Width 16.2 % (11.6-14.8); White Blood Cell Count 5.5 X10^3/uL (4.5-11.0)
[2021-04-09] MEDS: LORazepam 2 MG/ML INJ 0.5 MG IV (17:45)
[2021-04-09] MEDS: METOPROLOL ER 25 MG TABLET PO (17:46)
[2021-04-09 17:56] LABS: Alanine Aminotransferase 48 IU/L (<50); Albumin Globulin Ratio 1.5 (1.0-2.8); Alkaline Phosphatase 68 U/L (38-126); Aspartate Aminotransferase 54 IU/L (17-59); BUN Creatinine Ratio 18.2 (6-22); Bilirubin Total 0.8 mg/dL (0.2-1.3); Blood Urea Nitrogen 20 mg/dL (9-20); Carbon Dioxide 28 mmol/L (22-32); Chloride 103 mmol/L (98-107); Estimated Glomerular Filt Rate > 60.0 mL/min (>60); Ethanol (ETOH) < 10 mg/dL; Globulin 2.7 g/dL (1.7-4.1); Glucose 255 mg/dL (80-110); HEMOLYSIS < 15 (0-50); Lipase 197 U/L (23-300); Magnesium 1.5 mg/dL (1.6-2.3); Potassium 4.7 mmol/L (3.4-5.1); Sodium 138 mmol/L (137-145); Total Protein 6.7 g/dL (6.3-8.2)
[2021-04-09 18:58] LABS: COVID19 - ADMIT (NP swab/PCR) Negative (Negative)
[2021-04-09] MEDS: THIAMINE 200 MG in SODIUM CHLORIDE 0.9% 100 ML 408 ML IV (19:09)
[2021-04-09] MEDS: MAGNESIUM SULFATE 2 GM/50 ML PIGGYBACK IV (19:09)
--- NOTE | 2021-04-09 20:52 | P.HP_ITS ---
History of Present Illness History of Present Illness Date Patient Seen: 04/09/21 Time Patient Seen: 20:52 Chief complaint: afib, SOB, loss of balance Narrative: 75 yo male with history of alcoholism and atrial fibrillation is admitted from the ED for alcohol withdrawal and weakness. Patient was brought into the ER by his friend after 2 days of shakiness and dyspnea. Last drink two days ago, about a pint of bourbon. Alcohol level on admission was <10. Patient has atrial fibrillation and is non-compliant with his medications. Has felt that he has been in a fib for the past 2 days. ED doctor reports that he was tremulous upon arrival and he did receive 0.5 mg of lorezapam per CIWA protocol. Also had 2 mg of IV magnesium for a Mg of 1.5. Home metoprolol dose of 25 mg PO was given x1. He also received a banana bag. Pulse is now 78 from 115. Patient's is in [place] visiting their daughter. Reports that their new grandchild is six weeks old and does not know today's date. Per chart notes, grandchild should be about 6 months old. When asked if the age of his grandchild is actually older, he is not sure. He does recognize me as his pr imary care provider and is able to give updates about his two brothers in [place] and [place]. Reports that he has not been going to the store for food, mostly eating out of his deep freeze. He is interested in getting meals on wheals. Past medical history: 1. Alcoholism 2. Atrial fibrillation 3. Hypertension 4. Hyperlipidemia 5. BPH without obstruction 6. Colon polyps 7. Gout 8. History of tobacco abuse quit in 2003 Past surgical history: Unremarkable Family history: Mom of lung cancer Sister of complications of rheumatoid arthritis Has 2 brothers who are healthy Has 3 other sisters who are healthy Social history: Patient is but from his Marya. Marya manages their household and financial affairs and they have a wide [place] of friends in the area. Marya has started Al-Anon. Patient is connected with an AA sponsor but has not started his AA program. Marya spends large amounts of time in [place] where their daughter lives and has two small children. 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 [employer] Health related behavior: Daily alcohol intake Previous smoker quit in 2003 Fairly active No illicit drugs Patient History Medical History Alcohol abuse Atrial fibrillation Gout HTN (hypertension) Family & Social History Social History: household members spouse Safety & Behavioral: Feels Safe in Current Yes Environment Been Physically Hurt or No Threatened By a Person Tobacco & Substance use: Tobacco type cigarettes Smoking Status Former smoker alcohol intake current alcohol intake frequency 3 or more drinks per day Substance Use Type does not use Meds Home Medications and Allergies Home Medications Medication Instructions Recorded Confirmed Type folic acid 1 mg tablet 1 mg PO DAILY #90 tab 11/12/20 04/09/21 Rx multivitamin with folic acid 400 1 tab PO DAILY #90 tab 11/12/20 04/09/21 Rx mcg tablet (Tab-A-Cherri) cyanocobalamin (vitamin B-12) 1,000 mcg PO DAILY #90 cap 11/17/20 04/09/21 Rx 1,000 mcg capsule chlordiazepoxide HCl 25 mg capsule 25 mg PO 04/09/21 History metoprolol succinate 25 mg 25 mg PO DAILY 04/09/21 04/09/21 History tablet,extended release 24 hr trazodone 50 mg tablet 50 mg PO BEDTIME 04/09/21 04/09/21 History Allergies Allergy/AdvReac Type Severity Reaction Status Date / Time amoxicillin [AMOXICILLIN] Allergy Severe SWOLLEN JAW Verified 11/07/20 16:45 clindamycin [CLINDAMYCIN] AdvReac Severe C-DIFF Verified 11/07/20 16:45 Review of Systems Review of Systems Narrative: All remaining ROS were reviewed and negative except as addressed. Exam Vital Signs (past 8 hours): - 04/09/21 17:11 04/09/21 17:17 04/09/21 17:30 Temperature 97.4 F L Pulse Rate 115 H 110 H 100 H Respiratory Rate 28 H 33 H 31 H Blood Pressure 154/77 H Pulse Oximetry 98 92 99 04/09/21 17:35 04/09/21 17:46 04/09/21 18:00 Temperature Pulse Rate 100 H 99 H 89 Respiratory Rate 28 H 20 Blood Pressure 136/84 136/84 144/84 H Pulse Oximetry 98 97 04/09/21 18:30 04/09/21 18:45 04/09/21 18:51 Temperature Pulse Rate 96 H 88 85 Respiratory Rate 24 23 Blood Pressure 137/83 137/83 Pulse Oximetry 04/09/21 19:00 04/09/21 19:30 04/09/21 20:00 Temperature 99.4 F Pulse Rate 90 87 90 Respiratory Rate 19 18 19 Blood Pressure 135/86 148/77 H 128/77 Pulse Oximetry 98 98 04/09/21 20:30 Temperature Pulse Rate 78 Respiratory Rate 18 Blood Pressure 124/88 Pulse Oximetry 96 Oxygen Delivery Method Room Air Narrative Exam Narrative: GENERAL:? Alert and oriented, somewhat confused about historical events, appearing stated age and in no acute distress. HEENT:? Head normocephalic/atraumatic. CV:? Normal S1 and S2 with regular rate and rhythm, no audible murmurs, rubs or gallops. ABDOMEN:? Soft, non-tender, non-distended, no organomegaly.? Positive bowel sounds. EXTREMITIES:? No clubbing, cyanosis, or edema. NEURO:? Cranial nerves II through XII grossly intact, no focal deficits. PSYCH:? Alert and oriented x 3. SKIN:? No concerning lesions. Objective Labs Result Diagrams: 04/09/21 17:30 04/09/21 17:30 Labs: Laboratory Results - last 24 hr 04/09/21 04/09/21 04/09/21 17:30 17:30 17:30 WBC 5.5 RBC 3.56 L Hgb 11.7 L Hct 35.0 L MCV 98.2 MCH 33.0 MCHC 33.6 RDW 16.2 H Plt Count 221 Neut % (Auto) 73.2 Lymph % (Auto) 10.2 L [place] % (Auto) 15.0 H Eos % (Auto) 0.2 L Baso % (Auto) 1.4 Neut # (Auto) 4000 Lymph # (Auto) 600 L [place] # (Auto) 800 Eos # (Auto) 0 Baso # (Auto) 100 Sodium 138 Potassium 4.7 Chloride 103 Carbon Dioxide 28 BUN 20 Creatinine 1.10 Estimated GFR > 60.0 BUN/Creatinine Ratio 18.2 Glucose 255 H Calcium 9.0 Magnesium 1.5 L Total Bilirubin 0.8 AST 54 ALT 48 Alkaline Phosphatase 68 Total Protein 6.7 Albumin 4.0 Globulin 2.7 Albumin/Globulin Ratio 1.5 Lipase 197 Ethyl Alcohol < 10 SARS-CoV-2 (PCR) Negative Assessment & Plan Assessment & Plan narrative: 1.? Acute alcohol withdrawal -2 days since last alcohol ingestion Plan:? ? CIWA protocol, will replete vitamins. 2.? Atrial fibrillation, persistent, now rate-controlled with home metoprolol Plan:? Continue home metoprolol. Continue inpatient lovenox, not a candidate for AC due to outpatient fall risk.? 3.? Mixed anemia, chronic, secondary to alcoholism and poor nutrition Plan:? Continue MV, oral folate and thiamine.? Nutrition consult. 4.? Hypertension, chronic, labile Plan:? Please see #2. 5.? 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 Supportive care. 6.? Depression Plan:? Patient has been resistant to counseling and medication to date. At times, he has been open to speaking with his AA sponsor. Will encourage patient to call his sponsor. Dispo: ? Anticipate 2-4 days. Code: full MDM: devorah Malhotra: [phone] DVT: lovenox Diet: Heart healthy GI: Protonix COVID: negative
[2021-04-09] MEDS: TRAZODONE 50 MG TABLET PO (22:17)
[2021-04-09] MEDS: THIAMINE 100 MG TABLET PO (22:17)
--- NOTE | 2021-04-09 23:23 | PM.CN.EICU ---
History of Present Illness Consult details Chief complaint: afib, SOB, loss of balance :: This patient was seen in the Intensive Care Unit via real time interactive two-way audiovisual telecommunication. Narrative: Patient is a 75M with a PMH of ETOH Abuse (c/b seizures), AFib (not on AC due to falls, ETOH) and Dementia who presented to the ER with a friend this evening due to shakiness. History is obtained from patient, which is limited. He notes several days of feeling like his AFib was not controlled, reports noncompliance with his medications. Notes several falls, though he can't attribute why those occurred. Denies chest pain. Denies anxiety, agitation, abdominal pain, nausea/vomiting, headache. Denies weakness. Reports from bruising in his arms/legs from the falls; unsure about hitting his head/LOC. Reports his last drink was about 2-3 days ago, states he usually drinks [place] daily. In the ER, patient noted to be in AFib but hemodynamically stable; given Metop with resolution, HR now in the 70s-80s. Also received electrolyte repletion, ativan. Transferred to the ICU for monitoring given his history of ETOH seizures and started on CIWA protcol. Of not, patient was reportedly short of breath in the ER in the setting of AFib but denies this now. [facility] Medical History Alcohol abuse Atrial fibrillation Gout HTN (hypertension) Social History marital status: household members: spouse occupational status: previously employed Smoking Status: Former smoker alcohol intake: current substance use type: does not use Current Medications Current Medications Medications: Home Medications folic acid 1 mg tablet 1 mg PO DAILY #90 tab 11/12/20 [Rx Confirmed 04/09/21] multivitamin with folic acid 400 mcg tablet (Tab-A-Cherri) 1 tab PO DAILY #90 tab 11/12/20 [Rx Confirmed 04/09/21] cyanocobalamin (vitamin B-12) 1,000 mcg capsule 1,000 mcg PO DAILY #90 cap 11/17/20 [Rx Confirmed 04/09/21] chlordiazepoxide HCl 25 mg capsule 25 mg PO 04/09/21 [History] metoprolol succinate 25 mg tablet,extended release 24 hr 25 mg PO DAILY 04/09/21 [History Confirmed 04/09/21] trazodone 50 mg tablet 50 mg PO BEDTIME 04/09/21 [History Confirmed 04/09/21] Visit Medications (administered) Generic Name Dose Route Start Last Admin Trade Name Ben PRN Reason Stop Dose Admin Thiamine HCl 100 mg 04/09/21 22:00 04/09/21 22:17 Thiamine 100 Mg Tablet PO 04/12/21 09:01 100 mg DAILY MIKEL Administration Trazodone HCl 50 mg 04/09/21 22:00 04/09/21 22:17 Trazodone 50 Mg Tablet PO 50 mg BEDTIME MIKEL Administration Review of Systems Constitutional Comments: Denies fevers, malaise Cardiovascular Comments: Denies chest pain, palpitations Respiratory Comments: Denies shortness of breath Gastrointestinal Comments: Denies abdominal pain, distension, nausea, vomiting Musculoskeletal Comments: Reports some bruising on his arms, legs Neurologic Comments: Denies headache Psychiatric Comments: Denies anxiety, agitation Exam Vital Signs (past 8 hours): - 04/09/21 17:11 04/09/21 17:17 04/09/21 17:30 Temperature 97.4 F L Pulse Rate 115 H 110 H 100 H Respiratory Rate 28 H 33 H 31 H Blood Pressure 154/77 H Pulse Oximetry 98 92 99 04/09/21 17:35 04/09/21 17:46 04/09/21 18:00 Temperature Pulse Rate 100 H 99 H 89 Respiratory Rate 28 H 20 Blood Pressure 136/84 136/84 144/84 H Pulse Oximetry 98 97 04/09/21 18:30 04/09/21 18:45 04/09/21 18:51 Temperature Pulse Rate 96 H 88 85 Respiratory Rate 24 23 Blood Pressure 137/83 137/83 Pulse Oximetry 04/09/21 19:00 04/09/21 19:30 04/09/21 20:00 Temperature 99.4 F Pulse Rate 90 87 90 Respiratory Rate 19 18 19 Blood Pressure 135/86 148/77 H 128/77 Pulse Oximetry 98 98 04/09/21 20:30 04/09/21 21:37 04/09/21 23:00 Temperature 98.0 F 99.0 F Pulse Rate 78 71 84 Respiratory Rate 18 23 16 Blood Pressure 124/88 130/82 126/65 Pulse Oximetry 96 97 94 Oxygen Delivery Method Room Air Const Other: Alert, resting comfortably [facility] Other: Normocephalic. No head trauma noted. No tongue fasiculations Eyes Other: No scleral icterus Neck Other: No neck stiffness Resp Other: Mild cough. No increased work of breathing. On room air. Per RN, noted bibasilar fine crackles. Cardio Other: Regular rate. No extremity edema GI Other: Soft. Not distended Back/Spine/Pelvis Other: Per RN, right-sided stage II decubitus near coccyx Skin Other: Bruising noted on R forearm and R anterior foot Neuro Other: Oriented to person, place but not time. Able to move UE and LE. Follows commands, conversant Psych Other: Calm, cooperative Objective Labs Result Diagrams: 04/09/21 17:30 04/09/21 17:30 Labs: Laboratory Results - last 24 hr 04/09/21 04/09/21 04/09/21 17:30 17:30 17:30 WBC 5.5 RBC 3.56 L Hgb 11.7 L Hct 35.0 L MCV 98.2 MCH 33.0 MCHC 33.6 RDW 16.2 H Plt Count 221 Neut % (Auto) 73.2 Lymph % (Auto) 10.2 L [place] % (Auto) 15.0 H Eos % (Auto) 0.2 L Baso % (Auto) 1.4 Neut # (Auto) 4000 Lymph # (Auto) 600 L [place] # (Auto) 800 Eos # (Auto) 0 Baso # (Auto) 100 Sodium 138 Potassium 4.7 Chloride 103 Carbon Dioxide 28 BUN 20 Creatinine 1.10 Estimated GFR > 60.0 BUN/Creatinine Ratio 18.2 Glucose 255 H Calcium 9.0 Magnesium 1.5 L Total Bilirubin 0.8 AST 54 ALT 48 Alkaline Phosphatase 68 Total Protein 6.7 Albumin 4.0 Globulin 2.7 Albumin/Globulin Ratio 1.5 Lipase 197 Ethyl Alcohol < 10 SARS-CoV-2 (PCR) Negative Assessment & Plan Assessment & Plan narrative: 1. Alcohol Withdrawal. History of seizures. - Agree with CIWA protocol. Haldol ordered for breakthrough symptoms. If requiring Haldol, monitor QTc - Monitor lytes, replete aggressively. Consider addition of phosphorous to morning labs 2. AFib with RVR on admission, now controlled on Metop - Continue Metop. Agree with no AC at home given frequent falls - Follow up BNP. Given crackles, consider CXR. 3. Falls at home. Unclear mechanism, suspect mechanical falls given history. - If worsening mental status, would consider CT Head - at higher risk for subdural hematomas, especially with initiation of Lovenox 4. Anemia, Mild. Likely related to chronic ETOH. No e/o chayo bleeding - Vitamin repletion, Nutrition recs pending 5. Creatine Elevation compared to baseline. Likely due to poor PO intake/dehydration - Encourge PO hydration, repeat Cr 6. Hyperglycemia, no gap - Repeat BG in morning. If elevated initiate SSI, DM diet, HgbA1c Time Spent With Patient Critical Care time: I spent a total of [35] minutes of critical care time on this patient's care today; this time is exclusive of procedural time.
[2021-04-10] VITALS (16 sets, daily range): BP systolic 90–139; BP diastolic 59–84; PULSE 73–87; RESP 10–23; TEMP 36.6–37; O2SAT 94–99
[2021-04-10] MEDS: LORazepam 2 MG/ML INJ IV (00:01)
[2021-04-10] MEDS: SODIUM CHLORIDE 0.9% 1,000 ML 125 ML IV ×2 (00:02→06:20)
[2021-04-10 05:59] LABS: Add Manual Diff / Slide Review NO; Basophils Absolute Auto 100 /uL (0-100); Basophils Percent Auto 1.3 % (0-2); Eosinophils Absolute Auto 100 /uL (0-450); Eosinophils Percent Auto 2.7 % (2-4); Hematocrit 30.5 % (41-53); Hemoglobin 10.3 g/dL (13.5-17.5); Lymphocytes Absolute Auto 1000 /uL (1100-4500); Lymphocytes Percent Auto 18.4 % (25-40); Mean Corpuscular HGB Conc 33.8 % (30-36); Mean Corpuscular Hemoglobin 33.1 PG (26-34); Mean Corpuscular Volume 97.8 fL (80-100); Monocytes Absolute Auto 700 /uL (0-900); Monocytes Percent Auto 13.6 % (3-14); Neutrophils Absolute Auto 3300 /uL (1500-7000); Platelet Count 190 X10^3/uL (150-400); Red Blood Cell Count 3.12 X10^6/uL (4.5-5.9); Red Cell Distribution Width 16.4 % (11.6-14.8); White Blood Cell Count 5.2 X10^3/uL (4.5-11.0)
[2021-04-10 06:08] LABS: BUN Creatinine Ratio 17.6 (6-22); Blood Urea Nitrogen 15 mg/dL (9-20); Calcium 8.2 mg/dL (8.4-10.2); Carbon Dioxide 28 mmol/L (22-32); Chloride 105 mmol/L (98-107); Estimated Glomerular Filt Rate > 60.0 mL/min (>60); Glucose 88 mg/dL (80-110); HEMOLYSIS < 15 (0-50); Magnesium 1.8 mg/dL (1.6-2.3); Potassium 3.8 mmol/L (3.4-5.1); Sodium 133 mmol/L (137-145)
[2021-04-10 06:16] LABS: NT-proBNP (BNP-Adult 18+) 2030 pg/mL (<125)
--- NOTE | 2021-04-10 06:25 | PC.NURSE ---
Patient admitted to ICU room 227 at 2100, A/Ox3, forgetful and poor historian, CIWA 6-4, 1mg IV Ativan given x1 per protocol for anxiety, restlessness, and not being able to sleep after his routine Trazadone given at 2230. Showered with assist, mild shortness of breath only when anxious, SpO2 >92% on RA. A-fib CVR, BP stable, see vital trends. Tele Labor Economics Teacher consulted.
[2021-04-10] MEDS: ENOXAPARIN 40 MG/0.4 ML SYRINGE SUBCUT (08:13)
[2021-04-10] MEDS: MULTIVITAMIN 1 TABLET 1 TAB PO (08:13)
[2021-04-10] MEDS: PANTOPRAZOLE 40 MG VIAL IV (08:13)
[2021-04-10] MEDS: THIAMINE 100 MG TABLET PO (08:13)
[2021-04-10] MEDS: METOPROLOL ER 25 MG TABLET PO (08:14)
[2021-04-10] MEDS: FOLIC ACID 1 MG TABLET PO (08:14)
--- NOTE | 2021-04-10 09:45 | PM.PN.1 ---
Subjective Subjective Date Patient Seen: 04/10/21 Time Patient Seen: 09:46 Interval history: Patient had uneventful night. Did receive 1 mg of Ativan per [facility] protocol at approximately midnight. Metoprolol has kept him rate controlled throughout his stay. He continues to deny chest pain or shortness of breath. Tolerating breakfast, good appetite. No nausea or vomiting. Has been ambulating up to the bathroom. Exam Vital Signs (past 8 hours): - 04/10/21 02:00 04/10/21 03:00 04/10/21 04:00 Temperature 98.5 F Pulse Rate 87 79 81 Respiratory Rate 14 16 13 Blood Pressure 137/73 115/74 111/70 Pulse Oximetry 04/10/21 05:00 04/10/21 06:00 04/10/21 07:15 Temperature Pulse Rate 80 83 80 Respiratory Rate 17 15 13 Blood Pressure 108/74 113/70 111/70 Pulse Oximetry 95 94 04/10/21 08:00 04/10/21 08:14 04/10/21 09:42 Temperature 97.9 F Pulse Rate 76 76 84 Respiratory Rate 13 Blood Pressure 127/71 127/71 Pulse Oximetry 94 Oxygen Delivery Method Room Air Oxygen Flow Rate 0 Narrative Exam Narrative: GENERAL:? Alert and oriented, appearing stated age and in no acute distress. HEENT:? Head normocephalic/atraumatic. CV:? Normal S1 and S2 with regular rate and rhythm, no audible murmurs, rubs or gallops. ABDOMEN:? Soft, non-tender, non-distended, no organomegaly.? Positive bowel sounds. EXTREMITIES:? No clubbing, cyanosis, or edema. NEURO:? Cranial nerves II through XII grossly intact, no focal deficits. PSYCH:? Alert and oriented x 3. SKIN:? No concerning lesions. Objective Labs Result Diagrams: 04/10/21 05:46 04/10/21 05:46 Labs: Laboratory Results - last 24 hr 04/09/21 04/09/21 04/09/21 17:30 17:30 17:30 WBC 5.5 RBC 3.56 L Hgb 11.7 L Hct 35.0 L MCV 98.2 MCH 33.0 MCHC 33.6 RDW 16.2 H Plt Count 221 Neut % (Auto) 73.2 Lymph % (Auto) 10.2 L [place] % (Auto) 15.0 H Eos % (Auto) 0.2 L Baso % (Auto) 1.4 Neut # (Auto) 4000 Lymph # (Auto) 600 L [place] # (Auto) 800 Eos # (Auto) 0 Baso # (Auto) 100 Sodium 138 Potassium 4.7 Chloride 103 Carbon Dioxide 28 BUN 20 Creatinine 1.10 Estimated GFR > 60.0 BUN/Creatinine Ratio 18.2 Glucose 255 H Calcium 9.0 Magnesium 1.5 L Total Bilirubin 0.8 AST 54 ALT 48 Alkaline Phosphatase 68 NT-Pro-B Natriuret Pep Total Protein 6.7 Albumin 4.0 Globulin 2.7 Albumin/Globulin Ratio 1.5 Lipase 197 Nasal Screen MRSA (PCR) Ethyl Alcohol < 10 SARS-CoV-2 (PCR) Negative 04/09/21 04/10/21 04/10/21 21:15 05:46 05:46 WBC 5.2 RBC 3.12 L Hgb 10.3 L Hct 30.5 L MCV 97.8 MCH 33.1 MCHC 33.8 RDW 16.4 H Plt Count 190 Neut % (Auto) 64.0 Lymph % (Auto) 18.4 L [place] % (Auto) 13.6 Eos % (Auto) 2.7 Baso % (Auto) 1.3 Neut # (Auto) 3300 Lymph # (Auto) 1000 L [place] # (Auto) 700 Eos # (Auto) 100 Baso # (Auto) 100 Sodium 133 L Potassium 3.8 Chloride 105 Carbon Dioxide 28 BUN 15 Creatinine 0.85 Estimated GFR > 60.0 BUN/Creatinine Ratio 17.6 Glucose 88 D Calcium 8.2 L Magnesium 1.8 Total Bilirubin AST ALT Alkaline Phosphatase NT-Pro-B Natriuret Pep 2030 H Total Protein Albumin Globulin Albumin/Globulin Ratio Lipase Nasal Screen MRSA (PCR) Negative for mrsa Ethyl Alcohol SARS-CoV-2 (PCR) [facility] Medical History Alcohol abuse Atrial fibrillation Gout HTN (hypertension) Social History marital status: household members: none occupational status: previously employed Smoking Status: Former smoker alcohol intake: current substance use type: does not use Assessment & Plan Assessment & Plan narrative: 1.? Acute alcohol withdrawal -3 days since last alcohol ingestion Plan:? ? Continue CIWA protocol, taking very little ativan, may be able to be discharged tomorrow if able to go 24 hours without coverage. Will start PT today. Repleting vitamins. 2.? Atrial fibrillation, persistent, rate-controlled with home metoprolol Plan:? Continue home metoprolol.? Continue inpatient lovenox, not a candidate for AC due to outpatient fall risk.? 3.? Heart failure with preserved ejection fraction, acute, secondary to atrial fibrillation -BNP: 1400 --> 2030 -Echo on 11/13/20 had EF of 55 +/- 5% with no significant change from previous study. Plan:? BNP with slight rise overnight, sodium falling. Hyponatremia possibly secondary to dilution from IVF and acute hyperglycemia yesterday which was most likely due to a stress response. Clinically, patient is improving, will shut off IVF now and trend labs. Will not fluid restrict today in anticipation of levels stabilizing on their own when patient is euvolemic. Goal potassium > 4, and magnesium > 2.? Continue telemetry.? Gentle lasix diuresis later today/tomorrow if indicated. Will recheck BMP and BNP this evening. 4.? Mixed anemia, chronic, secondary to alcoholism and poor nutrition Plan:? Continue MV, oral folate and thiamine.? Nutrition to consult. 5. Hyponatremia, new Plan: Please see #3. 6.? Hypertension, chronic, controlled Plan:? Please see #2. 7.? 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 Supportive care. 8.? Depression Plan:? Patient has been resistant to counseling and medication to date, open to counseling now, will consult pastoral care.? At times, he has been open to speaking with his AA sponsor.? Encouraged patient to call his sponsor. 9. Weakness/fall risk Plan: PT consult. Dispo: ? Possibly home tomorrow if CIWA scores remain low and cleared by PT team. Will need home health for RN/PT support. Will also arrange for Meals on Wheels. Will continue to encourage patient to reach out to his AA sponsor. Code: full MDM: Marya: [phone] DVT: lovenox Diet: Heart healthy GI:? Protonix COVID:? negative Time Spent With Patient Critical Care time: I spent a total of 35 minutes of critical care time on this patient's care today; this time is exclusive of procedural time. Quality VTE Deep Vein Thrombosis/Pulmonary Embolism Present on Admission: No
[2021-04-10] MEDS: CYANOCOBALAMIN (VITAMIN B-12) 500 MCG TABLET 1000 MCG PO (10:13)
--- NOTE | 2021-04-10 11:00 | CM.DANOTE ---
Patient is a 75 yo male who was admitted on 04/09/21 for AFIB/SOB/ETOH withdrawal. Pt has [facility] and [employer] for insurance and his PCP is Dr. Cris Reyna. EMR was reviewed. Per MD, pt stopped drinking two days ago and began having ETOH withdrawals and was brought to ED by friend and pt has hx of AFIB. Per MD, pt may be stable for d/c tomorrow Sun and requesting SW to set up HH and Meals on Wheels. SW met bedside with pt and explained role and SW remembers this pt from his last admit in Nov 2020 a few months ago for similar but had some medical complications with his ETOH withdrawal and discharged to [facility]. Pt confirms that he still lives at home alone in [place] and is not currently driving and does not really leave the house but does have supportive friends locally and brother lives down towards [place] and visits sometimes. Pt's spouse still remains in [place] technician terminal and repeater with no plans of coming to [place] anytime soon. Pt denies any HH or Meals on Wheels currently although pt does have a hx of not returning phone calls for HH to be scheduled or Meals on Wheels confirmation that he is home and wants meals. Pt states that he would be agreeable with HH and reinstating his Meals on Wheels. SW called [employer] [facility] [phone] and left the [facility] since its the weekend requesting re-instating pt's delivered meals. SW made referral to [facility] based on Vendor Calendar and pt living in [place] and faxed signed F2F and MD orders to review and [facility] will confirm if they can accept. Pt confirms he was at [facility] for about 2 weeks and improved for safe d/c home but states It didn't work. When SW inquired further pt states he got stronger but it didn't work to keep me from drinking again. SW discussed difference between SNF rehab and ETOH rehab. Pt states ETOH rehab also was not successful in keeping me sober. SW discussed difficulty with sobriety and sometimes need for multiple treatment stays along with ongoing weekly support to reduce relapse risk. Pt does confirm that he purposefully stopped drinking alcohol a couple days ago which induced his withdrawal but currently not requesting ETOH tx at this time. Plan: SW to follow closely for [facility] review to confirm they can accept and possible d/c home tomorrow via friend POV and any further identified needs. 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 No Advance Directives on File No History Provided By Patient,Medical Record Has Patient been admitted in last 30 No days? Prior Living Arrangements House Household Members none Comment Spouse is living nursing home in [place] with Dtr and grandchild Type of transporation used prior to Relies on Others admit Independent with ADL's Yes: somewhat Is patient alert and oriented? Yes: somewhat Needs Assistance With Meal Prep,Managing Medications ,Home Chores / Shopping Caregiver for Another No Comment Patient reports that he has walker but does not use. Patient/Family Preference Home with Home Health Comment Patient with h/o etoh abuse. Patient reports that he has gone to multiple treatment centers for ETOH abuse in the past. Patient states they didn't work. Initial interview patient showed no desire to go to treatment for his ETOH abuse. Discharge Plan Home with Home Health Transportation Arrangement Patient reports that he may have friend or family member to provide him transport. Referrals Initiated Other Additional Comment [facility] to provide patient with community resources for ETOH, Meals on Wheels, and arrange home health if patient in agreement. If patient plan is home with home health Yes : Has signed face to face form been completed? Medicare Choice List Provided Yes SNF/HH Preference [facility] based on Vendor Calendar Whiteboard Updated in Patient Room with Yes name and ext. 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
--- NOTE | 2021-04-10 13:40 | PT.IIE ---
Current Diagnoses Alcohol dependence with withdrawal, unspecified (04/09/21) Medical History (Last Reviewed 04/09/21 @ 23:27 by Marquita Lala) Alcohol abuse Atrial fibrillation Gout HTN (hypertension) Physical Therapy Inpatient Evaluation/Re-Eval M1 PT/OT-IP Prior Functional Status Start: 04/10/21 16:11 Freq: NEEDED Status: Active Protocol: Document 04/10/21 13:40 AB (Rec: 04/10/21 16:24 AB [email or web address]) Medical Review Prior Functional Status Medical History Reviewed Yes Communication able to make needs known Mobility and Gait pt stated that he is independent with all mobilities and ambulation without AD Social History Household Members spouse,none Living Arrangements House Number of Floors (Floors) Two Floors Number of Stairs To Enter/Railing? 3 steps with wide rails 14 steps B rails midway and then just R rail pt stated that he can stay on first level of the house Home Environment Standard Height Toilet,Tub/ Shower Additional Social History Comment pt's spouse goes to [place] 4X a year and right now is in [place] and will be in there until April M2 PT-IP Current Condition Start: 04/10/21 16:11 Freq: NEEDED Status: Active Protocol: Document 04/10/21 13:40 AB (Rec: 04/10/21 16:24 AB [email or web address]) Physical Therapy Current Condition Current Condition Evaluation Date 04/10/21 Treatment Diagnosis A-fib; alcohol withdrawal; difficulty in walking Onset Date 04/09/21 M3 PT-IP Subjective Start: 04/10/21 16:11 Freq: NEEDED Status: Active Protocol: Document 04/10/21 13:40 AB (Rec: 04/10/21 16:24 AB [email or web address]) Subjective Physical Therapy Visit Type Type Initial Evaluation Visit Start Time 13:40 Visit Stop Time 14:35 Total Visit Minutes 55 Number of HOISTING ENGINE OPERATOR Visits 0 Physical Therapy Visit Comments Patient Comments pt is agreeable to do PT Therapy Pain Assessment Pain Present Pain Present Denied Pain M4 PT-IP Mobility and Gait Start: 04/10/21 16:11 Freq: NEEDED Status: Active Protocol: Document 04/10/21 13:40 AB (Rec: 04/10/21 16:24 AB [email or web address]) PT-Bed Mobility Assessment Supine to Sit Supine to Sit Standby Assistance Sit to Supine Sit to Supine Standby Assistance PT-Transfer Assessment Sit to and From Stand Sit to and from Stand Standby Assistance Equipment Transfer Assistive Device None,Gait Belt Orthotic/Prosthetic Devices or Brace: No Comments Mobility Comments BP monitored. BP in supine: 100/70. pt completed supine to sit SBA. able to sit on EOB SBA. BP checked: 104/67. completed sit to stand SBA. able to stand without AD SBA. BP in standin/55. pt aymptomatic and tolerated 2 more minutes of standing and BP checked: 79/51. pt sat on EOB and rested. BP sittin/63. pt continues to have no complaints. completed sit to stand again SBA and pt ambulated in room ~ 20 ft without AD SBA. pt sat back on EOB. BP: 87/63. pt agreed to do step. brought in step stool and used side of FWW to simulate one rail and pt completed up/down CGA to min A and cues. pt is impulsive and tends to do stairs too fast with LOB requiring min A. pt sat back on the bed and laid down. BP checked: 99/67. positioned pt in bed. call light and table placed within reach. informed nurse regarding pt's BP. Gait Assessment Gait Gait Assistance Required: Standby Assistance Distance (Feet) 20 Able to Maintain Weight Bearing Status Yes During Gait Assistive Devices Assistive Device None,Gait Belt Orthotic/Prosthetic Devices or Brace: No Gait Deviations General Gait Pattern Decreased Stride Length, Decreased Feet Clearance, Flexed Trunk Factors Limiting Gait Function Factors Limiting Gait Function Decreased Activity Tolerance, Decreased Strength,Poor Safety Awareness Stair Climbing Assessment Evaluation Level of Assist On Stairs Contact Guard Assistance, Minimal Assistance Devices Stair Climbing Assistive Devices Left Railing Technique/Endurance Stair Climbing Direction Ascend and Descend Stair Climbing Technique Step to Step Number of Steps Climbed 1 Query Text: Stair Climbing Set # Repetitions (reps) 3 Comments Stair Climbing Comments pls refer to mobility section for details PT-Balance Assessment Sitting Balance and Reactions Static Sitting Balance Ability Good Dynamic Sitting Balance Ability Good Standing Balance and Reactions Static Standing Balance Ability Good Dynamic Standing Balance Ability Fair Device Used without AD M5 PT-IP Objective Assessments Start: 04/10/21 16:11 Freq: NEEDED Status: Active Protocol: Document 04/10/21 13:40 AB (Rec: 04/10/21 16:24 AB [id number]) Orientation Orientation/Cognition Level of Alertness Alert Orientation Name Language Function Ability No Deficits Noted Safety Awareness Decreased Safety Awareness Memory Description Short Term Impaired Gross Range of Motion Lower Extremity ROM Assessment Within Functional Limits Strength Lower Extremity Strength Assessment Within Functional Limits Sensation Assessment Sensation Gross Sensation WNL Muscle Tone Muscle Tone WNL Yes M6 PT-IP Treatment Start: 04/10/21 16:11 Freq: NEEDED Status: Active Protocol: Document 04/10/21 13:40 AB (Rec: 04/10/21 16:24 AB [email or web address]) Physical Therapy Treatment Education Education Provided Safety M7 PT-IP Assessment and Plan Start: 04/10/21 16:11 Freq: NEEDED Status: Active Protocol: Document 04/10/21 13:40 AB (Rec: 04/10/21 16:24 AB [email or web address]) PT Summary Assessment and Plan Potential Rehabilitation Potential Fair Status of Condition at Evaluation Evolving Summary Impairments Pain,ROM,Strength,Balance, Coordination,Sensation,Tone, Cognition,Bed Mobility, Transfers,Gait,Activity Tolerance Assessment Summary pt requiring SBA with ambulation without AD but ambulation restricted due to decrease in BP. CGA to min A with stair climbing. BP has orthostatic hypotension and nurse informed. pt lives alone and will not have assistance at home. pt will need services to assist him when he goes home. will continue to assess progress. Goals Bed Mobility Goal Independent Transfer Goal Independent Gait Goal Independent Gait Distance 200 Other Goals up/down 3 steps L rail mod I Days to Meet Goals 10 Frequency of Treatment Frequency Of Treatment Once a Day Treatment Plan Physical Therapy Treatment Plan Bed Mobility Training,Transfer Training,Gait Training, Therapeutic Exercise,Balance Retraining,Discharge Planning, Hot or Cold Pack,Neuromuscular Re-ed,Coordination Retraining Precautions Other Precautions BP Recommendations To Nursing Amount of Assist Needed Standby Assistance Discharge Recommendations PT Discharge Recommendations Home with Assistance,Home with 05/09 Assist Available,Home Health Transportation Needs at Discharge Private Vehicle
[2021-04-10] MEDS: TRAZODONE 50 MG TABLET PO (20:25)
[2021-04-10 20:41] LABS: BUN Creatinine Ratio 21.6 (6-22); Blood Urea Nitrogen 19 mg/dL (9-20); Calcium 8.9 mg/dL (8.4-10.2); Carbon Dioxide 28 mmol/L (22-32); Chloride 103 mmol/L (98-107); Estimated Glomerular Filt Rate > 60.0 mL/min (>60); Glucose 113 mg/dL (80-110); Potassium 4.8 mmol/L (3.4-5.1); Sodium 135 mmol/L (137-145)
[2021-04-10 20:49] LABS: HEMOLYSIS 83 (0-50)
[2021-04-10 20:50] LABS: NT-proBNP (BNP-Adult 18+) 2430 pg/mL (<125)
[2021-04-10 20:58] LABS: Phosphorous 3.1 mg/dL (2.3-3.7)
[2021-04-11 05:00] VITALS: BP 131/67; PULSE 75; RESP 18; TEMP 36.8; O2SAT 95
[2021-04-11 06:53] LABS: Add Manual Diff / Slide Review NO; Basophils Absolute Auto 100 /uL (0-100); Basophils Percent Auto 1.3 % (0-2); Eosinophils Absolute Auto 200 /uL (0-450); Eosinophils Percent Auto 3.2 % (2-4); Hematocrit 30.4 % (41-53); Hemoglobin 10.4 g/dL (13.5-17.5); Lymphocytes Absolute Auto 800 /uL (1100-4500); Lymphocytes Percent Auto 12.6 % (25-40); Mean Corpuscular HGB Conc 34.3 % (30-36); Mean Corpuscular Hemoglobin 33.6 PG (26-34); Mean Corpuscular Volume 98.1 fL (80-100); Monocytes Absolute Auto 500 /uL (0-900); Monocytes Percent Auto 7.8 % (3-14); Neutrophils Absolute Auto 4500 /uL (1500-7000); Neutrophils Percent Auto 75.1 % (50-75); Platelet Count 191 X10^3/uL (150-400)
[2021-04-11 06:59] LABS: BUN Creatinine Ratio 20.3 (6-22); Blood Urea Nitrogen 15 mg/dL (9-20); Calcium 8.5 mg/dL (8.4-10.2); Carbon Dioxide 27 mmol/L (22-32); Chloride 106 mmol/L (98-107); Estimated Glomerular Filt Rate > 60.0 mL/min (>60); Glucose 96 mg/dL (80-110); HEMOLYSIS < 15 (0-50); Magnesium 1.5 mg/dL (1.6-2.3); Potassium 3.9 mmol/L (3.4-5.1); Sodium 133 mmol/L (137-145)
[2021-04-11 07:08] LABS: NT-proBNP (BNP-Adult 18+) 3650 pg/mL (<125)
[2021-04-11 07:55] VITALS: PULSE 83; RESP 20; TEMP 36.6; O2SAT 96
[2021-04-11 08:38] VITALS: BP 131/67; PULSE 84
[2021-04-11] MEDS: PANTOPRAZOLE 40 MG VIAL IV (08:38)
[2021-04-11] MEDS: FOLIC ACID 1 MG TABLET PO (08:38)
[2021-04-11] MEDS: ENOXAPARIN 40 MG/0.4 ML SYRINGE SUBCUT (08:38)
[2021-04-11] MEDS: METOPROLOL ER 25 MG TABLET PO (08:38)
[2021-04-11] MEDS: THIAMINE 100 MG TABLET PO (08:39)
[2021-04-11] MEDS: MULTIVITAMIN 1 TABLET 1 TAB PO (08:39)
[2021-04-11] MEDS: CYANOCOBALAMIN (VITAMIN B-12) 500 MCG TABLET 1000 MCG PO (08:43)
--- NOTE | 2021-04-11 09:04 | PC.NURSE ---
Pt alert and oriented x3 took 100% of breakfast, ciwa 0, seizure pads in place , c/o bedsores uncomfortable refused anything for pain. repositioned for off load of butt area. bed alarmed call light within reach.
--- NOTE | 2021-04-11 10:57 | P.DS_ITS ---
History of Present Illness History of Present Illness Date Patient Seen: 04/11/21 Time Patient Seen: 10:57 Chief complaint: afib, SOB, loss of balance Narrative: 75 yo male with history of alcoholism and atrial fibrillation is admitted from the ED for alcohol withdrawal and weakness. Patient was brought into the ER by his friend after 2 days of shakiness and dyspnea. Last drink two days ago, about a pint of bourbon. Alcohol level on admission was <10. Patient has atrial fibrillation and is non-compliant with his medications. Has felt that he has been in a fib for the past 2 days. ED doctor reports that he was tremulous upon arrival and he did receive 0.5 mg of lorezapam per [facility] protocol. Also had 2 mg of IV magnesium for a Mg of 1.5. Home metoprolol dose of 25 mg PO was given x1. He also received a banana bag. Pulse is now 78 from 115. Patient's is in [place] visiting their daughter. Reports that their new grandchild is six weeks old and does not know today's date. Per chart notes, grandchild should be about 6 months old. When asked if the age of his grandchild is actually older, he is not sure. He does recognize me as his pr ary care provider and is able to give updates about his two brothers in [place] and [place]. Reports that he has not been going to the store for food, mostly eating out of his deep freeze. He is interested in getting meals on wheals. Discharge Providers Provider Date of admission: 04/09/21 19:03 Discharge Date: 04/11/21 Primary care physician: Cris Reyna MD Consults: 04/09/21 21:37 Consult to Tele-pocket marker Routine Comment: Consulting Provider: Zainab Tele-intensivists Reason for consultation: Double Needle Operator Lockstitch services 04/09/21 21:46 Consult to Dietitian, Adult Routine Comment: Reason For Exam: alcoholism/withdrawals 04/10/21 10:23 Consult to Physical Therapy Evaluate & Treat Comment: Physician Instructions: Evaluate and Treat 04/10/21 10:50 Consult to Home Health Routine Comment: AFIB, SOB, ETOH withdrawal Reason For Exam: Set up RN/PT for d/c home when stable 04/10/21 13:31 Consult to Pastoral Services Routine Comment: social isolation, alchoholism Discharge provider: Cris Reyna MD Summary Hospital Course Discharge Diagnosis: 1.? Acute alcohol withdrawal, resolved 2.? Atrial fibrillation, persistent, rate-controlled with home metoprolol 3.? Heart failure with preserved ejection fraction, acute, secondary to atrial fibrillation, treated 4.? Mixed anemia, chronic, secondary to alcoholism and poor nutrition 5.? Electrolyte derangments, hyponatremia, hypomagnesemia, acute, treated 6. Hypertension, chronic, controlled 7.? 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 Depression 9.? Weakness/fall risk Hospital Course: Patient had an unremarkable hospital course. [facility] protocols were low throughout stay and he only required 1 dose of Ativan on his 1st night. For the last 24 hours, he has not required any Ativan per [facility] protocol and is back to baseline cognitive state. He does have chronic, persistent atrial fibrillation that has been rate controlled with his home metoprolol in the hospital. Normally, he has not been compliant with his medications and this may be a problem again as he goes home. Patient did have slightly low magnesium on day of admission, 1.5, repleted with 2 g IV Mg with a post-infusion level of 1.8. On day of discharge, his magnesium is again low at 1.5 and he will be given 2 g of IV Mg prior to discharge. He may need chronic magnesium replacement especially in light of his alcoholism, this will depend on how much he is drinking. Potassium was also low-normal on day of discharge, 3.9, and this will be repleted with 20 meq of oral potassium prior to discharge. Patient did have an elevated BNP throuhgout his stay: 2030 --> 2430 --> 3650, with no crackles or peripheral edema. In setting of persistent atrial fibrillation and chronic HFpEF, will give 20 mg IV lasix prior to discharge. He will need repeat BMP with magnesium at his 1 week follow-up appointment. Patient remains weak and deconditioned due to his alcoholism, this is chronic and he is at his baseline. PT has evaluated him and recommended discharge to home with 24/7 assistance. Patient is trying to arrange care with his brother in [place], he is from his . His brother is about to retire from the [employer]. We will also arrange for home health with PT upon discharge in case he is not able to live with his brother. Patient is also agreeable to one week of Meals on Wheels and that will be arranged. Socially, Bar remains from his Marya who is spending much of her time in [place] with their daughter and grandchildren. Marya does come back to [facility] for management of their financial affairs. She is not part of his day-to-day care anymore. Bar would like to start counseling and that is a new and positive change, will initiate that in the outpatient setting. Marya reports that he has had two recent failed rehab attempts. He has not called his AA sponsor. On day of discharge, he is afebrile with stable vital signs throughout. He is back to his physical and cognitive baseline. Follow-up appointment goals: 1. BMP, sodium and potassium levels 2. Mg 3. BNP 3. Check on status of home health PT. 4. Check on status of social supports including brother in [place]. 5. Coordinate care to help Bar start counseling relationship with local provider. 6. Encourage participation in AA. 7. Maintain close outpatient follow-up. Time spent on Discharge and Coordination of post-hospital care: 35 minutes Status at Discharge Cognitive/behavioral status at discharge: at baseline, oriented Functional status at discharge: uses cane/walker Overall status at discharge: patient is back to baseline Exam Vital Signs (past 8 hours): - 04/11/21 05:00 04/11/21 07:55 04/11/21 08:38 Temperature 98.3 F 97.8 F Pulse Rate 75 83 84 Respiratory Rate 18 20 Blood Pressure 131/67 131/67 Pulse Oximetry 95 96 Oxygen Delivery Method Room Air Oxygen Flow Rate 0 Narrative Exam Narrative: GENERAL: Alert and oriented, appearing stated age and in no acute distress. HEENT: Head normocephalic/atraumatic. Extraocular movements intact. LUNGS: Clear to ausculation bilaterally, no wheezes, rhonchi or rales. CV: Normal S1 and S2 with irregularly irregular, no audible murmurs, rubs or gallops. ABDOMEN: Soft, non-tender, non-distended, no organomegaly. Positive bowel sounds. EXTREMITIES: No clubbing, cyanosis, or edema. NEURO: Cranial nerves II through XII grossly intact, no focal deficits. PSYCH: Alert and oriented x 3. SKIN: No concerning lesions. Objective Labs Result Diagrams: 04/11/21 06:45 04/11/21 06:45 Labs: Laboratory Results - last 24 hr 04/10/21 04/10/21 04/11/21 20:15 20:15 06:45 WBC 6.0 RBC 3.10 L Hgb 10.4 L Hct 30.4 L MCV 98.1 MCH 33.6 MCHC 34.3 RDW 16.0 H Plt Count 191 Neut % (Auto) 75.1 H Lymph % (Auto) 12.6 L [place] % (Auto) 7.8 Eos % (Auto) 3.2 Baso % (Auto) 1.3 Neut # (Auto) 4500 Lymph # (Auto) 800 L [place] # (Auto) 500 Eos # (Auto) 200 Baso # (Auto) 100 Sodium 135 L Potassium 4.8 Chloride 103 Carbon Dioxide 28 BUN 19 Creatinine 0.88 Estimated GFR > 60.0 BUN/Creatinine Ratio 21.6 Glucose 113 H Calcium 8.9 Phosphorus 3.1 Magnesium NT-Pro-B Natriuret Pep 2430 H 04/11/21 06:45 WBC RBC Hgb Hct MCV MCH MCHC RDW Plt Count Neut % (Auto) Lymph % (Auto) [place] % (Auto) Eos % (Auto) Baso % (Auto) Neut # (Auto) Lymph # (Auto) [place] # (Auto) Eos # (Auto) Baso # (Auto) Sodium 133 L Potassium 3.9 Chloride 106 Carbon Dioxide 27 BUN 15 Creatinine 0.74 Estimated GFR > 60.0 BUN/Creatinine Ratio 20.3 Glucose 96 Calcium 8.5 Phosphorus Magnesium 1.5 L NT-Pro-B Natriuret Pep 3650 H [facility] Medical History Alcohol abuse Atrial fibrillation Gout HTN (hypertension) Social History marital status: household members: spouse and none occupational status: previously employed Smoking Status: Former smoker alcohol intake: current substance use type: does not use Discharge Plan Discharge Plan Patient Disposition: Home Provider Discharge Comment: Bar, it is always nice to see you and I look forward to seeing you at your follow-up appointment. I will help you start to find a long-term counselor and check your labs again at that appointment. Please consider reaching out to your AA sponsor. I am happy to speak with your family at any time if they have questions. All the best, Dr. Reyna Discharge orders & Medications Prescriptions: Continued folic acid 1 mg Tablet 1 mg PO DAILY Qty: 90 3RF multivitamin with folic acid [Tab-A-Cherri] 400 mcg Tablet 1 tab PO DAILY Qty: 90 3RF cyanocobalamin (vitamin B-12) 1,000 mcg capsule 1,000 mcg PO DAILY Qty: 90 1RF trazodone 50 mg tablet 50 mg PO BEDTIME 0RF Label Comments: take ONE-HALF tablet by MOUTH AT bedtime as needed FOR insomnia metoprolol succinate 25 mg tablet extended release 24 hr 25 mg PO DAILY 0RF Follow up/Referrals: Cris Reyna MD [Primary Care Provider] - Diet/Activity/Treatments Diet: Diet as Tolerated Discharge Data Primary Care Provider: Cris Reyna Quality VTE Deep Vein Thrombosis/Pulmonary Embolism Present on Admission: No
[2021-04-11] MEDS: POTASSIUM CHLORIDE 20 MEQ TAB PO (11:24)
[2021-04-11] MEDS: FUROSEMIDE 20 MG/2 ML VIAL IV (11:25)
[2021-04-11] MEDS: MAGNESIUM SULFATE 2 GM/50 ML PIGGYBACK IV (11:25)
--- NOTE | 2021-04-11 12:26 | CM.DPC ---
DCP/continued: Reviewed chart. Spoke with Dr. Reyna this AM re: planning. Per Dr. Reyna patient is medically stable for discharge today. Provider reports that patient wants to go to his brother's at time of d/c. Provider unsure if this is a realistic option. HARDWARE DESIGNER met with cuca and patient's Uncle at bedside explained role. Leylatent reports that his brother/Alexander will be picking him up in a few hours. Patient reports that his brother lives in [place] and has told him he could stay with him. Patient denies any need for home health. Patient does request name/number's of providers in the area. Patient reports that he is interesting in changing? No additional needs identified. Name and number of providers and senior resource guide given. P: Home with patient's brother/Alexander today. LUZ
--- NOTE | 2021-04-11 14:38 | PT.IPTN ---
Current Diagnoses Alcohol dependence with withdrawal, unspecified (04/09/21) Physical Therapy Treatment Note M2 PT-IP Current Condition Start: 04/10/21 16:11 Freq: NEEDED Status: Active Protocol: Document 04/10/21 13:40 AB (Rec: 04/10/21 16:24 AB [id number]) Physical Therapy Current Condition Current Condition Evaluation Date 04/10/21 Treatment Diagnosis A-fib; alcohol withdrawal; difficulty in walking Onset Date 04/09/21 M3 PT-IP Subjective Start: 04/10/21 16:11 Freq: NEEDED Status: Active Protocol: Document 04/11/21 14:38 AW (Rec: 04/11/21 14:48 AW [id number]) Subjective Physical Therapy Visit Type Type Treatment Note Visit Start Time 14:17 Visit Stop Time 14:32 Total Visit Minutes 15 Number of GLOBAL CONSUMER SECTOR VICE PRESIDENT Visits 0 Physical Therapy Visit Comments Patient Comments I don't know how I got like this. Patient Goals Pt states his brother will pick him up today. They will spend the night at pt's house on [address] [facility] before going to brother's house where pt can stay with brother's assist . Therapy Pain Assessment Pain Present Pain Present Denied Pain M4 PT-IP Mobility and Gait Start: 04/10/21 16:11 Freq: NEEDED Status: Active Protocol: Document 04/11/21 14:38 AW (Rec: 04/11/21 14:48 AW [id number]) PT-Bed Mobility Assessment Supine to Sit Supine to Sit Standby Assistance Sit to Supine Sit to Supine Standby Assistance Scooting Scooting Up and Down in Bed Standby Assistance PT-Transfer Assessment Sit to and From Stand Sit to and from Stand Standby Assistance Equipment Transfer Assistive Device Gait Belt,Front Wheeled Walker Orthotic/Prosthetic Devices or Brace: No Comments Mobility Comments Pt agreed to get up to EOB. Sitting BP 80/53 HR 82. Pt stood and reported dizziness. He sat EOB and BP was 91/62 HR 85. Repeat BP 2 minutes later was stable. Pt agreed to ambulate with FWW and walked 40 feet CGA without dizziness. Pt reported symptoms again as he returned to the room and BP was 94/66 HR 81. RN was aware of BP. Pt returned to supine SBA and was left with call light in reach. Gait Assessment Gait Gait Assistance Required: Standby Assistance,Contact Guard Assist Distance (Feet) 40 Assistive Devices Assistive Device Gait Belt,Front Wheeled Walker Orthotic/Prosthetic Devices or Brace: No Gait Deviations General Gait Pattern Decreased Stride Length, Decreased Feet Clearance, Flexed Trunk Factors Limiting Gait Function Factors Limiting Gait Function Decreased Activity Tolerance, Decreased Strength,Poor Safety Awareness PT-Balance Assessment Sitting Balance and Reactions Static Sitting Balance Ability Good Dynamic Sitting Balance Ability Good Standing Balance and Reactions Static Standing Balance Ability Good Dynamic Standing Balance Ability Fair Device Used FWW M5 PT-IP Objective Assessments Start: 04/10/21 16:11 Freq: NEEDED Status: Active Protocol: Document 04/10/21 13:40 AB (Rec: 04/10/21 16:24 AB [id number]) Orientation Orientation/Cognition Level of Alertness Alert Orientation Name Language Function Ability No Deficits Noted Safety Awareness Decreased Safety Awareness Memory Description Short Term Impaired Gross Range of Motion Lower Extremity ROM Assessment Within Functional Limits Strength Lower Extremity Strength Assessment Within Functional Limits Sensation Assessment Sensation Gross Sensation WNL Muscle Tone Muscle Tone WNL Yes M6 PT-IP Treatment Start: 04/10/21 16:11 Freq: NEEDED Status: Active Protocol: Document 04/11/21 14:38 AW (Rec: 04/11/21 14:48 AW [id number]) Physical Therapy Treatment Education Education Provided Safety M7 PT-IP Assessment and Plan Start: 04/10/21 16:11 Freq: NEEDED Status: Active Protocol: Document 04/11/21 14:38 AW (Rec: 04/11/21 14:48 AW [id number]) PT Summary Assessment and Plan Summary Assessment Summary Pt feeling more dizzy today and requests use of FWW to ambulate 40 feet SBA/CGA. BP low but stable pre and post- activity. Pt's brother plans to pick him up and stay with him over the next several days . PT continues to recommend HHPT to progress mobility independence. Goals Bed Mobility Goal Independent Transfer Goal Independent Gait Goal Independent Gait Distance 200 Other Goals up/down 3 steps L rail mod I Days to Meet Goals 10 Frequency of Treatment Frequency Of Treatment Once a Day Treatment Plan Physical Therapy Treatment Plan Bed Mobility Training,Transfer Training,Gait Training, Therapeutic Exercise,Balance Retraining,Discharge Planning, Hot or Cold Pack,Neuromuscular Re-ed,Coordination Retraining Precautions Other Precautions BP Recommendations To Nursing Amount of Assist Needed Standby Assistance Discharge Recommendations PT Discharge Recommendations Home with Assistance,Home with 05/09 Assist Available,Home Health Transportation Needs at Discharge Private Vehicle
[2021-04-11 15:00] VITALS: BP 95/72; PULSE 69; RESP 19; TEMP 36.8; O2SAT 97
--- NOTE | 2021-04-13 15:12 | PC.NURSE ---
Faxed discharge summary to [facility] as pt has been brought there by EMS-
== END 2021-04-11 15:36 | disposition home or self-care (01) | DRG 896 ==
LOC: ED 19:02 → AC 19:04 → ICU 04-10 08:48 → AC 04-11 10:58 → ICU 04-12 08:03
PROVIDERS: Emergency Medicine; Admitting Provider Student in an Organized Health Care Education/Training Program; Emergency Provider Emergency Medicine; PCP Student in an Organized Health Care Education/Training Program; Referring Provider Emergency Medicine; Visit Provider Student in an Organized Health Care Education/Training Program
DX: F10.239 Alcohol dependence with withdrawal, unspecified (principal); I50.31 Acute diastolic (congestive) heart failure; I48.19 Other persistent atrial fibrillation; D64.89 Other specified anemias; F32.A Depression, unspecified; E83.42 Hypomagnesemia; I11.0 Hypertensive heart disease with heart failure; Y90.0 Blood alcohol level of less than 20 mg/100 ml; Z20.822 Contact with and (suspected) exposure to COVID-19; Z87.891 Personal history of nicotine dependence
CPT/HCPCS: 36415; 80048; 80053; 80320; 83690; 83735; 83880; 84100; 85025; 87635; 87797; 93005; 96365; 96367; 96368; 96375; 97162; 97530; 99284; 99285; C9803; C9113; J1650; J1940; J2060; J3475

== ENCOUNTER 2021-06-08 20:22 | Emergency (ER) | payer MEDICARE, OTHER, SELFPAY ==
[2019-07-03 21:02] VITALS: PULSE 98; RESP 16; O2SAT 98
[2021-04-09 21:18] VITALS: BMI 24.3
[2021-06-08] VITALS (11 sets, daily range): BP systolic 125–153; BP diastolic 77–90; PULSE 92–130; RESP 13–34; O2SAT 88–99; BMI 23.6
--- NOTE | 2021-06-08 20:34 | DI.RAD.S_ITS ---
PROCEDURE: XR CHEST 1V INDICATIONS: chest pain TECHNIQUE: One view of the chest was acquired. COMPARISON: [facility], CR, XR CHEST 1V, 11/12/2020, 15:47. FINDINGS: Surgical changes and devices: None. Lungs and pleura: Asymmetric elevation of left hemidiaphragm with chronic appearing left medial lung base atelectasis. Lungs are otherwise clear. Mediastinum: Mediastinal contours appear normal. Heart size is normal. Bones and chest wall: No suspicious bony lesions. Overlying soft tissues appear unremarkable. IMPRESSION: 1. No acute changes. 2. Chronic left retrocardiac opacity suggestive of atelectasis, less likely recurrent/chronic effusion. Dictated by: Nani Jimenez M.D. on 06/08/2021 at 21:33 Approved by: Nani Jimenez M.D. on 06/08/2021 at 21:33
--- NOTE | 2021-06-08 20:36 | ED_ITS ---
HPI - Arrhythmia/Palpitations General Chief Complaint: Arrhythmia/Palpitations Stated Complaint: Afib RVR Time Seen by Provider: 06/08/21 20:23 History of Present Illness HPI narrative: Patient is a 75-year-old male history of alcoholism atrial fibrillation presenting today with AFib with RVR. He said he felt his chest getting tight and fluttery EMS reports that he had a heart rate anywhere from 100-150, EMS gave him 10 mg of Cardizem it seemed to improve his heart rate. He still is having some chest tightness. Drinks alcohol daily he does not start drinking until 6:00 p.m. it is usually hard liquor. He denies any fever or chills. He does live alone but has a friend who checks on him regularly. Related Data Home Medications Medication Instructions Recorded Confirmed metoprolol succinate 25 mg 25 mg PO DAILY 04/09/21 04/09/21 tablet,extended release 24 hr trazodone 50 mg tablet 50 mg PO BEDTIME 04/09/21 04/09/21 Previous Rx's Medication Instructions Recorded folic acid 1 mg tablet 1 mg PO DAILY #90 tab 11/12/20 multivitamin with folic acid 400 1 tab PO DAILY #90 tab 11/12/20 mcg tablet (Tab-A-Cherri) cyanocobalamin (vitamin B-12) 1,000 mcg PO DAILY #90 cap 11/17/20 1,000 mcg capsule metoprolol succinate 25 mg 25 mg PO DAILY #30 tab 06/08/21 tablet,extended release 24 hr Allergies Allergy/AdvReac Type Severity Reaction Status Date / Time amoxicillin [AMOXICILLIN] Allergy Severe SWOLLEN JAW Verified 06/08/21 20:39 clindamycin [CLINDAMYCIN] AdvReac Severe C-DIFF Verified 06/08/21 20:39 Review of Systems Review of Systems Narrative: GENERAL: Denies chills, fatigue, malaise, fever, sweats, travel HEENT: Denies sinus pain, ear pain, sore throat, difficulty swallowing, neck pain RESPIRATORY: Denies dyspnea, cough, wheezing, hemoptysis, sputum. CARDIOVASCULAR: See HPI GASTROINTESTINAL: Denies nausea, vomiting, abdominal pain, diarrhea, constipation, melena. : Denies dysuria, frequency, incontinence, hematuria, urinary retention, flank pain. MUSCULOSKELETAL: Denies weakness, joint pain, or bony pain SKIN: No rash, no erythema, no pruritus NEUROLOGIC: Denies weakness, dizziness, headache, numbness, change in speech, confusion PSYCHIATRIC: No concerning psychosocial issues. 12 point review of systems is negative except for those stated above and HPI Patient History Medical History Alcohol abuse Atrial fibrillation Gout HTN (hypertension) Social History marital status: household members: spouse and none occupational status: previously employed Smoking Status: Former smoker alcohol intake: current substance use type: does not use Smoking Status: Former smoker alcohol intake frequency: 3 or more drinks per day Alcohol type: beer, wine and hard liquor Substance Use Type: marijuana Exam Initial Vital Signs Initial Vital Signs: Vital Signs Pulse Rate 112 H 06/08/21 20:25 Respiratory Rate 24 06/08/21 20:25 Blood Pressure 125/79 06/08/21 20:25 Pulse Oximetry 96 06/08/21 20:25 GENERAL: Alert well-appearing 75-year-old male no acute distress HEENT: Head atraumatic,EOMI, pupils reactive, face symmetric, moist mucous membranes CARDIOVASCULAR: Irregularly irregular no murmur RESPIRATORY: Breath sounds equal bilaterally, no wheezes rales or rhonchi. ABDOMEN: Soft, nontender. Normoactive bowel sounds all 4 quadrants. No guarding or rebound. EXTREMITIES: Normal range of motion, no clubbing or edema. Neurovascularly intact NEUROLOGICAL: Alert and oriented x3. 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 Course Orders Ordered: ED Orders 06/08/21 20:30 BNP [NT-proBNP (BNP-Adult 18+)] Stat Complete Blood Count AUTO DIFF Stat Comprehensive Metabolic Panel Stat ETOH [Ethanol (ETOH)] Stat Lipase Stat Magnesium Stat PT [Prothrombin Time INR] Stat PTT [Partial Thromboplastin Time] Stat Troponin & CK Cardiac Panel Stat 06/08/21 20:31 COVID19 -Nasal RAPID/Pre-Proc Stat 06/08/21 20:34 XR chest 1V Stat EKG-12 Lead Stat Discontinued Medications Lorazepam (Lorazepam 2 Mg/Ml Inj) 1 mg IV NOW ONE Stop: 06/08/21 20:37 Last Admin: 06/08/21 20:41 Dose: 1 mg Documented by: LUCY Lorazepam (Lorazepam 2 Mg/Ml Inj) 1 mg IV NOW ONE Stop: 06/08/21 23:16 Last Admin: 06/08/21 23:18 Dose: 1 mg Documented by: LUCY Metoprolol Succinate (Metoprolol Er 25 Mg Tablet) 25 mg PO NOW ONE Stop: 06/08/21 23:02 Last Admin: 06/08/21 23:17 Dose: 25 mg Documented by: LUCY Vital Signs Vital signs: Vital Signs - 8 hr 06/08/21 20:25 06/08/21 20:31 06/08/21 21:00 Pulse Rate 112 H 108 H 92 H Respiratory Rate 24 34 H 18 Blood Pressure 125/79 135/77 Pulse Oximetry 96 99 96 06/08/21 21:30 06/08/21 22:00 06/08/21 22:30 Pulse Rate 106 H 113 H 114 H Respiratory Rate 23 13 17 Blood Pressure 137/87 144/78 H 153/88 H Pulse Oximetry 93 96 96 06/08/21 23:00 06/08/21 23:17 06/08/21 23:30 Pulse Rate 113 H 130 H 115 H Respiratory Rate 15 19 Blood Pressure 134/90 134/90 Pulse Oximetry 88 L 06/08/21 23:31 06/08/21 23:59 Pulse Rate 105 H Respiratory Rate 22 Blood Pressure 143/90 H Pulse Oximetry 91 MDM - Arrhythmia/Palpitations Lab Data Result diagrams: 06/08/21 20:30 06/08/21 20:30 Labs: Lab Results 06/08/21 06/08/21 06/08/21 Range/Units 20:30 20:30 20:30 WBC 5.2 (4.5-11.0) X10^3/uL RBC 3.76 L (4.5-5.9) X10^6/uL Hgb 12.1 L (13.5-17.5) g/dL Hct 36.6 L (41-53) % MCV 97.2 (80-100) fL MCH 32.2 (26-34) PG MCHC 33.1 (30-36) % RDW 14.7 (11.6-14.8) % Plt Count 184 (150-400) X10^3/uL Neut % (Auto) 66.4 (50-75) % Lymph % (Auto) 23.8 L (25-40) % [place] % (Auto) 8.1 (3-14) % Eos % (Auto) 0.6 L (2-4) % Baso % (Auto) 1.1 (0-2) % Neut # (Auto) 3500 (9149-3868) /uL Lymph # (Auto) 1200 (7782-9650) /uL [place] # (Auto) 400 (0-900) /uL Eos # (Auto) 0 (0-450) /uL Baso # (Auto) 100 (0-100) /uL PT (10.1-12.7) SECONDS INR (0.9-1.3) APTT (26.4-36.2) SECONDS Sodium 143 (137-145) mmol/L Potassium 3.8 (3.4-5.1) mmol/L Chloride 109 H (98-107) mmol/L Carbon Dioxide 19 L (22-32) mmol/L BUN 11 (9-20) mg/dL Creatinine 1.27 H (0.66-1.25) mg/dL Estimated GFR 59 L (>60) mL/min BUN/Creatinine Ratio 8.7 (6-22) Glucose 103 (80-110) mg/dL Calcium 8.2 L (8.4-10.2) mg/dL Magnesium 1.5 L (1.6-2.3) mg/dL Total Bilirubin 0.7 (0.2-1.3) mg/dL AST 32 (17-59) IU/L ALT 16 (<50) IU/L Alkaline Phosphatase 52 (38-126) U/L Total Creatine Kinase 109 (55-170) U/L CK-MB (CK-2) 1.56 (<2.37) ng/mL CK-MB (CK-2) Rel Index 1.4 L (1.5-5.0) % Troponin I < 0.012 (0.01-0.034) ng/mL NT-Pro-B Natriuret Pep (<125) pg/mL Total Protein 6.6 (6.3-8.2) g/dL Albumin 4.0 (3.5-5.0) g/dL Globulin 2.6 (1.7-4.1) g/dL Albumin/Globulin Ratio 1.5 (1.0-2.8) Lipase 78 (23-300) U/L Ethyl Alcohol 69 H ( - 10) mg/dL SARS-CoV-2 (PCR) (Negative) 06/08/21 06/08/21 06/08/21 Range/Units 20:30 20:30 20:30 WBC (4.5-11.0) X10^3/uL RBC (4.5-5.9) X10^6/uL Hgb (13.5-17.5) g/dL Hct (41-53) % MCV (80-100) fL MCH (26-34) PG MCHC (30-36) % RDW (11.6-14.8) % Plt Count (150-400) X10^3/uL Neut % (Auto) (50-75) % Lymph % (Auto) (25-40) % Rapides % (Auto) (3-14) % Eos % (Auto) (2-4) % Baso % (Auto) (0-2) % Neut # (Auto) (7559-8597) /uL Lymph # (Auto) (3652-6295) /uL [place] # (Auto) (0-900) /uL Eos # (Auto) (0-450) /uL Baso # (Auto) (0-100) /uL PT 12.3 (10.1-12.7) SECONDS INR 1.1 (0.9-1.3) APTT 23 L (26.4-36.2) SECONDS Sodium (137-145) mmol/L Potassium (3.4-5.1) mmol/L Chloride (98-107) mmol/L Carbon Dioxide (22-32) mmol/L BUN (9-20) mg/dL Creatinine (0.66-1.25) mg/dL Estimated GFR (>60) mL/min BUN/Creatinine Ratio (6-22) Glucose (80-110) mg/dL Calcium (8.4-10.2) mg/dL Magnesium (1.6-2.3) mg/dL Total Bilirubin (0.2-1.3) mg/dL AST (17-59) IU/L ALT (<50) IU/L Alkaline Phosphatase (38-126) U/L Total Creatine Kinase (55-170) U/L CK-MB (CK-2) (<2.37) ng/mL CK-MB (CK-2) Rel Index (1.5-5.0) % Troponin I (0.01-0.034) ng/mL NT-Pro-B Natriuret Pep 487 H (<125) pg/mL Total Protein (6.3-8.2) g/dL Albumin (3.5-5.0) g/dL Globulin (1.7-4.1) g/dL Albumin/Globulin Ratio (1.0-2.8) Lipase Cancelled (23-300) U/L Ethyl Alcohol ( - 10) mg/dL SARS-CoV-2 (PCR) (Negative) 06/08/21 Range/Units 20:31 WBC (4.5-11.0) X10^3/uL RBC (4.5-5.9) X10^6/uL Hgb (13.5-17.5) g/dL Hct (41-53) % MCV (80-100) fL MCH (26-34) PG MCHC (30-36) % RDW (11.6-14.8) % Plt Count (150-400) X10^3/uL Neut % (Auto) (50-75) % Lymph % (Auto) (25-40) % Rapides % (Auto) (3-14) % Eos % (Auto) (2-4) % Baso % (Auto) (0-2) % Neut # (Auto) (2184-6236) /uL Lymph # (Auto) (6513-0421) /uL Rapides # (Auto) (0-900) /uL Eos # (Auto) (0-450) /uL Baso # (Auto) (0-100) /uL PT (10.1-12.7) SECONDS INR (0.9-1.3) APTT (26.4-36.2) SECONDS Sodium (137-145) mmol/L Potassium (3.4-5.1) mmol/L Chloride (98-107) mmol/L Carbon Dioxide (22-32) mmol/L BUN (9-20) mg/dL Creatinine (0.66-1.25) mg/dL Estimated GFR (>60) mL/min BUN/Creatinine Ratio (6-22) Glucose (80-110) mg/dL Calcium (8.4-10.2) mg/dL Magnesium (1.6-2.3) mg/dL Total Bilirubin (0.2-1.3) mg/dL AST (17-59) IU/L ALT (<50) IU/L Alkaline Phosphatase (38-126) U/L Total Creatine Kinase (55-170) U/L CK-MB (CK-2) (<2.37) ng/mL CK-MB (CK-2) Rel Index (1.5-5.0) % Troponin I (0.01-0.034) ng/mL NT-Pro-B Natriuret Pep (<125) pg/mL Total Protein (6.3-8.2) g/dL Albumin (3.5-5.0) g/dL Globulin (1.7-4.1) g/dL Albumin/Globulin Ratio (1.0-2.8) Lipase (23-300) U/L Ethyl Alcohol ( - 10) mg/dL SARS-CoV-2 (PCR) Negative (Negative) Imaging Data Chest x-ray: Radiologist's Impresson: PROCEDURE:? XR CHEST 1V ? INDICATIONS:? chest pain ? TECHNIQUE:? One view of the chest was acquired.? ? COMPARISON:? [facility], , XR CHEST 1V, 11/12/2020, 15:47. ? FINDINGS:? ? Surgical changes and devices:? None.? ? Lungs and pleura:? Asymmetric elevation of left hemidiaphragm with chronic appearing left medial lung base atelectasis.? Lungs are otherwise clear. ? Mediastinum:? Mediastinal contours appear normal.? Heart size is normal.? ? Bones and chest wall:? No suspicious bony lesions.? Overlying soft tissues appear unremarkable.? ? IMPRESSION:? ? 1. No acute changes. ? 2. Chronic left retrocardiac opacity suggestive of atelectasis, less likely recurrent/chronic effusion.? ? ? Dictated by: Nani Jimenez M.D. on 06/08/2021 at 21:33 ? ? Approved by: Nani Jimenez M.D. on 06/08/2021 at 21:33 ? ECG Data Interpretation: Atrial fibrillation rate [address] changes no T-wave inversions similar to previous EKG MDM Narrative Medical decision making narrative: Patient's heart rate is much better controlled here he is given some Ativan as he is slightly shaky. He is having some chest discomfort as well. Blood work an EKG are overall reassuring. He has no sign of congestive heart failure. He is monitored in the ED for couple of hours heart rate only starts to the increase. He has not taken his metoprolol he actually is noncompliant with closed with medication. His at this time he is feeling better. I talked him about taking medication as prescribed. He is not an anticoagulation candidate due to alcoholism and frequent falls. No indication to keep him in the hospital at this time. A friend will pick him up. Discharge Plan Departure Patient Disposition: Home Clinical Impression: Atrial fibrillation with RVR Instructions: DI for Atrial Fibrillation Activity Restrictions/Additional Instructions: *You have been diagnosed with atrial fibrillation *What to do: At this time your chest discomfort was related to your heart rate. You need to take her medication to prevent your heart rate from going up. *Continue to take medications as directed Metoprolol 25 mg daily as previously prescribed *Follow up with your primary care provider in 2-3 days or call [phone] *Return to ER if you should have increasing chest pain shortness of breath palpitations dizziness falling or any new, worsening or concerning symptoms Prescriptions: New metoprolol succinate 25 mg tablet extended release 24 hr 25 mg PO DAILY Qty: 30 0RF No Action folic acid 1 mg Tablet 1 mg PO DAILY Qty: 90 3RF multivitamin with folic acid [Tab-A-Cherri] 400 mcg Tablet 1 tab PO DAILY Qty: 90 3RF cyanocobalamin (vitamin B-12) 1,000 mcg capsule 1,000 mcg PO DAILY Qty: 90 1RF trazodone 50 mg tablet 50 mg PO BEDTIME 0RF Label Comments: take ONE-HALF tablet by MOUTH AT bedtime as needed FOR insomnia metoprolol succinate 25 mg tablet extended release 24 hr 25 mg PO DAILY 0RF Referrals: Cris Reyna MD [Primary Care Provider] -
[2021-06-08] MEDS: LORazepam 2 MG/ML INJ 1 MG IV ×2 (20:41→23:18)
[2021-06-08 20:53] LABS: INR 1.1 (0.9-1.3); Prothrombin Time 12.3 SECONDS (10.1-12.7)
[2021-06-08 20:56] LABS: Add Manual Diff / Slide Review NO; Basophils Absolute Auto 100 /uL (0-100); Basophils Percent Auto 1.1 % (0-2); Eosinophils Absolute Auto 0 /uL (0-450); Eosinophils Percent Auto 0.6 % (2-4); Hematocrit 36.6 % (41-53); Hemoglobin 12.1 g/dL (13.5-17.5); Lymphocytes Absolute Auto 1200 /uL (1100-4500); Lymphocytes Percent Auto 23.8 % (25-40); Mean Corpuscular HGB Conc 33.1 % (30-36); Mean Corpuscular Hemoglobin 32.2 PG (26-34); Mean Corpuscular Volume 97.2 fL (80-100); Monocytes Absolute Auto 400 /uL (0-900); Monocytes Percent Auto 8.1 % (3-14); Neutrophils Absolute Auto 3500 /uL (1500-7000); Neutrophils Percent Auto 66.4 % (50-75); PTT Partial Thromboplastin Tim 23 SECONDS (26.4-36.2); Platelet Count 184 X10^3/uL (150-400); Red Blood Cell Count 3.76 X10^6/uL (4.5-5.9); Red Cell Distribution Width 14.7 % (11.6-14.8); White Blood Cell Count 5.2 X10^3/uL (4.5-11.0)
[2021-06-08 21:07] LABS: COVID19 -Nasal RAPID Negative (Negative)
[2021-06-08 21:07] LABS: Alanine Aminotransferase 16 IU/L (<50); Albumin Globulin Ratio 1.5 (1.0-2.8); Alkaline Phosphatase 52 U/L (38-126); Aspartate Aminotransferase 32 IU/L (17-59); BUN Creatinine Ratio 8.7 (6-22); Bilirubin Total 0.7 mg/dL (0.2-1.3); Blood Urea Nitrogen 11 mg/dL (9-20); Calcium 8.2 mg/dL (8.4-10.2); Carbon Dioxide 19 mmol/L (22-32); Chloride 109 mmol/L (98-107); Creatine Kinase 109 U/L (55-170); Estimated Glomerular Filt Rate 59 mL/min (>60); Globulin 2.6 g/dL (1.7-4.1); Glucose 103 mg/dL (80-110); HEMOLYSIS < 15 (0-50); Lipase 78 U/L (23-300); Magnesium 1.5 mg/dL (1.6-2.3); Potassium 3.8 mmol/L (3.4-5.1); Sodium 143 mmol/L (137-145); Total Protein 6.6 g/dL (6.3-8.2)
[2021-06-08 21:16] LABS: Ethanol (ETOH) 69 mg/dL; NT-proBNP (BNP-Adult 18+) 487 pg/mL (<125)
[2021-06-08 21:18] LABS: Troponin I < 0.012 ng/mL (0.01-0.034)
[2021-06-08 21:22] LABS: CKMB % Relative Index 1.4 % (1.5-5.0); Creatine Kinase MB 1.56 ng/mL (<2.37)
[2021-06-08] MEDS: METOPROLOL ER 25 MG TABLET PO (23:17)
== END 2021-06-09 | disposition home or self-care (01) ==
PROVIDERS: Emergency Provider Emergency Medicine; PCP Student in an Organized Health Care Education/Training Program
DX: I48.91 Unspecified atrial fibrillation (principal); Z87.891 Personal history of nicotine dependence; Z91.14 Patient's other noncompliance with medication regimen; Z20.822 Contact with and (suspected) exposure to COVID-19
CPT/HCPCS: 36415; 71045; 80053; 80320; 82550; 82553; 83690; 83735; 83880; 84484; 85025; 85610; 85730; 87635; 93005; 96374; 96376; 99283; 99284; C9803; J2060

== ENCOUNTER 2021-07-03 20:10 | Inpatient (IN) | payer MEDICARE, OTHER, SELFPAY ==
[2019-07-03 21:02] VITALS: PULSE 98; RESP 16; O2SAT 98
[2021-04-09 21:18] VITALS: BMI 24.3
[2021-07-03] VITALS (9 sets, daily range): BP systolic 139–177; BP diastolic 79–112; PULSE 101–132; RESP 26; TEMP 36.8; O2SAT 95–98; BMI 23.6
--- NOTE | 2021-07-03 20:30 | DI.RAD.S_ITS ---
PROCEDURE: XR CHEST 1V INDICATIONS: chest pain TECHNIQUE: One view of the chest was acquired. COMPARISON: [facility], CT, CT CHEST ABDOMEN PELVIS WITH CONTRAST, 06/28/2021, 19:57. [facility], CR, XR CHEST 1V, 11/12/2020, 15:47. [facility], CR, XR CHEST 1V, 06/08/2021, 20:39. FINDINGS: Surgical changes and devices: None. Lungs and pleura: Mild, streaky opacities are seen at the lung bases. Low lung volumes are noted. This causes a crowded appearance to the lung markings and limits evaluation. No pleural effusions or pneumothorax. Mediastinum: The cardiac contours are within normal limits. The aorta demonstrates calcification and tortuosity. Bones and chest wall: No suspicious bony lesions. Overlying soft tissues appear unremarkable. IMPRESSION: Low lung volumes, with mild opacities at the lung bases, which are most likely related to atelectasis. Differential diagnosis includes mild/early infiltrate, yet this is considered to be less likely. If clinically appropriate, a short-term followup chest series (with PA and lateral views) performed in deep inspiration is suggested for further evaluation. Dictated by: Bonilla Moore M.D. on 07/03/2021 at 20:15 Approved by: Bonilla Moore M.D. on 07/03/2021 at 20:19
--- NOTE | 2021-07-03 21:18 | ED.ARRPALP ---
HPI - Arrhythmia/Palpitations General Chief Complaint: Arrhythmia/Palpitations Stated Complaint: A-Fib Time Seen by Provider: 07/03/21 21:00 Source: patient Mode of arrival: Ambulatory History of Present Illness HPI narrative: 76-year-old male former smoker with extensive history of alcohol abuse including withdrawals with seizures, atrial fibrillation, and frequent falls presents for evaluation of rapid irregular heart rate and chest pressure. He has a very poor historian and though he thinks he has been taking his medications it is unclear. Additionally, he states that he knows he has been having pressure and palpitations over at least today he can't say with much certain T how often it happens. His is at the bedside eventually and states that he frequently is confused. He had been seen relatively recently and diagnosed with atrial fibrillation but is not anticoagulated because he uses alcohol chronically and falls frequently and the discussion suggests that he is at high risk for fall and bleeding while on anticoagulation. He drinks upwards of a pt per day and thinks he has not had any for most of the day Related Data Home Medications Medication Instructions Recorded Confirmed metoprolol succinate 25 mg 25 mg PO DAILY 04/09/21 04/09/21 tablet,extended release 24 hr trazodone 50 mg tablet 50 mg PO BEDTIME 04/09/21 04/09/21 Previous Rx's Medication Instructions Recorded folic acid 1 mg tablet 1 mg PO DAILY #90 tab 11/12/20 multivitamin with folic acid 400 1 tab PO DAILY #90 tab 11/12/20 mcg tablet (Tab-A-Cherri) cyanocobalamin (vitamin B-12) 1,000 mcg PO DAILY #90 cap 11/17/20 1,000 mcg capsule metoprolol succinate 25 mg 25 mg PO DAILY #30 tab 06/08/21 tablet,extended release 24 hr Allergies Allergy/AdvReac Type Severity Reaction Status Date / Time amoxicillin [AMOXICILLIN] Allergy Severe SWOLLEN JAW Verified 07/03/21 20:26 clindamycin [CLINDAMYCIN] AdvReac Severe C-DIFF Verified 07/03/21 20:26 Review of Systems Review of Systems Narrative: GENERAL: See HPI HEENT: Denies sinus pain, ear pain, sore throat, difficulty swallowing, dizziness. RESPIRATORY: Denies dyspnea, cough, wheezing, hemoptysis, sputum. CARDIOVASCULAR: See HPI GASTROINTESTINAL: See HPI : Denies dysuria, frequency, incontinence, hematuria, urinary retention. MUSCULOSKELETAL: denies weakness, joint pain, or bony pain SKIN: Denies rash, skin lesions, or other NEUROLOGIC: Denies weakness, headache, numbness, change in speech, confusion, seizures, incoordination. PSYCHIATRIC: No concerning psychosocial issues. 12 point review of systems is negative except for those stated above Patient History Medical History (Updated 07/04/21 @ 05:37 by Justin Rasmussen DO) Alcohol abuse Atrial fibrillation Gout HTN (hypertension) Social History marital status: household members: spouse and none occupational status: previously employed Smoking Status: Former smoker alcohol intake: current substance use type: does not use Smoking Status: Former smoker alcohol intake frequency: 3 or more drinks per day Alcohol type: beer, wine and hard liquor Substance Use Type: marijuana Exam Narrative Exam Narrative: GENERAL: [76] year old patient appears stated age. Well-developed patient, in moderate distress, anxious, pacing, mild tremors HEAD: Atraumatic. Normocephalic. EYES: Pupils equal round and reactive. Extraocular motions intact. No scleral icterus. No injection or drainage. ENT: Nose without bleeding, purulent drainage. Throat without erythema, tonsillar hypertrophy or exudate. Airway patent. NECK: Trachea midline. Non tender CARDIOVASCULAR: Tachycardic and irregular rhythm without murmurs, gallops, or rubs. RESPIRATORY: Clear to auscultation. Breath sounds equal bilaterally. No wheezes, rales, or rhonchi. GASTROINTESTINAL: Abdomen soft, non-tender, nondistended. EXTREMITIES: No edema or joint tenderness. BACK: Nontender without deformity or crepitance. No flank tenderness. NEURO: Awake, pleasantly confused, anxious and a bit agitated SKIN: No rash or erythema of visible areas Initial Vital Signs Initial Vital Signs: Vital Signs Temperature 98.2 F 07/03/21 20:26 Pulse Rate 112 H 07/03/21 20:26 Respiratory Rate 26 H 07/03/21 20:26 Blood Pressure 160/109 H 07/03/21 20:26 Pulse Oximetry 98 07/03/21 20:26 Course Orders Ordered: ED Orders 07/03/21 21:05 Complete Blood Count AUTO DIFF Stat Comprehensive Metabolic Panel Stat Ethanol (ETOH) Stat Lipase Stat Magnesium Stat Troponin & CK Cardiac Panel Stat 07/03/21 22:08 COVID19 -Nasal RAPID/Pre-Proc Stat Lorazepam (Lorazepam 1 Mg Tablet) 0 mg PO CIWAPRN PRN; Protocol PRN Reason: Alcohol Withdrawal Discontinued Medications Thiamine HCl 200 mg/ Sodium (Chloride) 102 mls @ 408 mls/hr IV NOW ONE Stop: 07/03/21 22:51 Last Infusion: 07/03/21 23:20 Dose: 0 mls/hr Documented by: [email or web address] Admin: 07/03/21 23:02 Dose: 408 mls/hr Documented by: [email or web address] Metoprolol Succinate (Metoprolol Er 25 Mg Tablet) 25 mg PO NOW ONE Stop: 07/04/21 00:15 Last Admin: 07/04/21 01:16 Dose: 25 mg Documented by: [email or web address] Phenobarbital (Phenobarbital 65 Mg/Ml Vial) 130 mg IV NOW ONE Stop: 07/03/21 22:51 Last Admin: 07/03/21 23:02 Dose: 130 mg Documented by: [email or web address] Phenobarbital (Phenobarbital 65 Mg/Ml Vial) 65 mg IM NOW ONE Stop: 07/04/21 04:07 Last Admin: 07/04/21 05:23 Dose: Not Given Documented by: Phenobarbital (Phenobarbital 65 Mg/Ml Vial) 65 mg IV NOW ONE Stop: 07/04/21 04:31 Last Admin: 07/04/21 04:18 Dose: 65 mg Documented by: [email or web address] Reevaluation(s) Reevaluation #1: improved after Phenobarb Reevaluation #2: patient becoming diaphoretic, tremulous, agitated and anxious. Repeat dose of Phenobarb (65mg) administered Reevaluation #3: still significantly improved Consultations Consultation #1: Dr. Hammonds happy to accept Vital Signs Vital signs: Vital Signs - 8 hr 07/03/21 21:38 07/03/21 21:39 07/03/21 22:02 Pulse Rate 112 H 109 H 132 H Respiratory Rate Blood Pressure 162/109 H Pulse Oximetry 95 97 07/03/21 22:03 07/03/21 22:30 07/03/21 22:31 Pulse Rate 106 H 101 H 115 H Respiratory Rate Blood Pressure 177/112 H 157/79 H Pulse Oximetry 96 96 96 07/03/21 23:00 07/03/21 23:30 07/04/21 00:00 Pulse Rate 105 H 109 H 96 H Respiratory Rate 2 L Blood Pressure 164/93 H 139/93 H 163/96 H Pulse Oximetry 98 97 07/04/21 00:30 07/04/21 01:00 07/04/21 01:26 Pulse Rate 98 H 87 112 H Respiratory Rate Blood Pressure 185/127 H 206/118 H 164/111 H Pulse Oximetry 97 97 07/04/21 01:30 07/04/21 02:00 Pulse Rate 100 H 98 H Respiratory Rate Blood Pressure 160/101 H 162/111 H Pulse Oximetry 97 97 MDM - Arrhythmia/Palpitations Lab Data Result diagrams: 07/03/21 21:05 07/03/21 21:05 Labs: Lab Results 07/03/21 07/03/21 07/03/21 Range/Units 21:05 21:05 21:05 WBC 4.7 (4.5-11.0) X10^3/uL RBC 3.63 L (4.5-5.9) X10^6/uL Hgb 12.1 L (13.5-17.5) g/dL Hct 35.8 L (41-53) % MCV 98.8 (80-100) fL MCH 33.2 (26-34) PG MCHC 33.6 (30-36) % RDW 16.4 H (11.6-14.8) % Plt Count 205 (150-400) X10^3/uL Neut % (Auto) 68.2 (50-75) % Lymph % (Auto) 19.3 L (25-40) % [place] % (Auto) 11.3 (3-14) % Eos % (Auto) 1.0 L (2-4) % Baso % (Auto) 0.2 (0-2) % Neut # (Auto) 3200 (7480-8439) /uL Lymph # (Auto) 900 L (6000-6100) /uL [place] # (Auto) 500 (0-900) /uL Eos # (Auto) 0 (0-450) /uL Baso # (Auto) 0 (0-100) /uL Sodium 140 (137-145) mmol/L Potassium 4.5 (3.4-5.1) mmol/L Chloride 107 (98-107) mmol/L Carbon Dioxide 24 (22-32) mmol/L BUN 13 (9-20) mg/dL Creatinine 0.92 (0.66-1.25) mg/dL Estimated GFR > 60 (>60) mL/min BUN/Creatinine Ratio 14.1 (6-22) Glucose 94 (80-110) mg/dL Calcium 8.7 (8.4-10.2) mg/dL Magnesium 1.9 (1.6-2.3) mg/dL Total Bilirubin 0.4 (0.2-1.3) mg/dL AST 36 (17-59) IU/L ALT 20 (<50) IU/L Alkaline Phosphatase 75 (38-126) U/L Total Creatine Kinase 81 (55-170) U/L CK-MB (CK-2) TNP CK-MB (CK-2) Rel Index TNP Troponin I < 0.012 (0.01-0.034) ng/mL Total Protein 7.2 (6.3-8.2) g/dL Albumin 4.3 (3.5-5.0) g/dL Globulin 2.9 (1.7-4.1) g/dL Albumin/Globulin Ratio 1.5 (1.0-2.8) Lipase 147 (23-300) U/L Ethyl Alcohol < 10 ( - 10) mg/dL SARS-CoV-2 (PCR) (Negative) 07/03/21 Range/Units 22:08 WBC (4.5-11.0) X10^3/uL RBC (4.5-5.9) X10^6/uL Hgb (13.5-17.5) g/dL Hct (41-53) % MCV (80-100) fL MCH (26-34) PG MCHC (30-36) % RDW (11.6-14.8) % Plt Count (150-400) X10^3/uL Neut % (Auto) (50-75) % Lymph % (Auto) (25-40) % [place]pkins % (Auto) (3-14) % Eos % (Auto) (2-4) % Baso % (Auto) (0-2) % Neut # (Auto) (8089-8415) /uL Lymph # (Auto) (3465-6192) /uL [place]kins # (Auto) (0-900) /uL Eos # (Auto) (0-450) /uL Baso # (Auto) (0-100) /uL Sodium (137-145) mmol/L Potassium (3.4-5.1) mmol/L Chloride (98-107) mmol/L Carbon Dioxide (22-32) mmol/L BUN (9-20) mg/dL Creatinine (0.66-1.25) mg/dL Estimated GFR (>60) mL/min BUN/Creatinine Ratio (6-22) Glucose (80-110) mg/dL Calcium (8.4-10.2) mg/dL Magnesium (1.6-2.3) mg/dL Total Bilirubin (0.2-1.3) mg/dL AST (17-59) IU/L ALT (<50) IU/L Alkaline Phosphatase (38-126) U/L Total Creatine Kinase (55-170) U/L CK-MB (CK-2) CK-MB (CK-2) Rel Index Troponin I (0.01-0.034) ng/mL Total Protein (6.3-8.2) g/dL Albumin (3.5-5.0) g/dL Globulin (1.7-4.1) g/dL Albumin/Globulin Ratio (1.0-2.8) Lipase (23-300) U/L Ethyl Alcohol ( - 10) mg/dL SARS-CoV-2 (PCR) Negative (Negative) MDM Narrative Medical decision making narrative: Patient presents and is anxious with tachycardia, palpitations and some chest pressure. His story is unclear, he is in no sign of significant extremities and is not a good candidate for cardioversion. Furthermore, it would seem that many of his symptoms are likely related to alcohol withdrawal as he responds well to phenobarb. For this reason specific treatment aimed at his atrial fibrillation is kept at minimum initially and focuses on alcohol withdrawal. Patient requires hospitalization for ongoing treatment, evaluation and stabilization. Discharge Plan Departure Patient Disposition: Admitted as Observation Clinical Impression: Atrial fibrillation with RVR, Alcohol withdrawal Admit Date/Time: 07/04/21 02:02 Admit Provider: Cris Reyna
[2021-07-03 21:22] LABS: Add Manual Diff / Slide Review NO; Basophils Absolute Auto 0 /uL (0-100); Basophils Percent Auto 0.2 % (0-2); Eosinophils Absolute Auto 0 /uL (0-450); Hematocrit 35.8 % (41-53); Hemoglobin 12.1 g/dL (13.5-17.5); Lymphocytes Absolute Auto 900 /uL (1100-4500); Lymphocytes Percent Auto 19.3 % (25-40); Mean Corpuscular HGB Conc 33.6 % (30-36); Mean Corpuscular Hemoglobin 33.2 PG (26-34); Mean Corpuscular Volume 98.8 fL (80-100); Monocytes Absolute Auto 500 /uL (0-900); Monocytes Percent Auto 11.3 % (3-14); Neutrophils Absolute Auto 3200 /uL (1500-7000); Neutrophils Percent Auto 68.2 % (50-75); Platelet Count 205 X10^3/uL (150-400); Red Blood Cell Count 3.63 X10^6/uL (4.5-5.9); Red Cell Distribution Width 16.4 % (11.6-14.8); White Blood Cell Count 4.7 X10^3/uL (4.5-11.0)
[2021-07-03 21:26] LABS: Alanine Aminotransferase 20 IU/L (<50); Albumin 4.3 g/dL (3.5-5.0); Albumin Globulin Ratio 1.5 (1.0-2.8); Alkaline Phosphatase 75 U/L (38-126); Aspartate Aminotransferase 36 IU/L (17-59); BUN Creatinine Ratio 14.1 (6-22); Bilirubin Total 0.4 mg/dL (0.2-1.3); Blood Urea Nitrogen 13 mg/dL (9-20); Calcium 8.7 mg/dL (8.4-10.2); Carbon Dioxide 24 mmol/L (22-32); Chloride 107 mmol/L (98-107); Creatine Kinase 81 U/L (55-170); Estimated Glomerular Filt Rate > 60 mL/min (>60); Globulin 2.9 g/dL (1.7-4.1); Glucose 94 mg/dL (80-110); HEMOLYSIS < 15 (0-50); Lipase 147 U/L (23-300); Magnesium 1.9 mg/dL (1.6-2.3); Potassium 4.5 mmol/L (3.4-5.1); Sodium 140 mmol/L (137-145); Total Protein 7.2 g/dL (6.3-8.2)
[2021-07-03 21:37] LABS: Troponin I < 0.012 ng/mL (0.01-0.034)
[2021-07-03] MEDS: PHENobarbital 65 MG/ML VIAL 130 MG IV (23:02)
[2021-07-03] MEDS: THIAMINE 200 MG in SODIUM CHLORIDE 0.9% 100 ML 408 MG IV (23:02)
[2021-07-03 23:08] LABS: COVID19 -Nasal RAPID Negative (Negative)
--- NOTE | 2021-07-03 23:18 | PC.NURSE ---
Pt given phenobarbitol per MAR order. Pt visibly anxious and tremulous. Pt oriented and cooperative, able to follow commands. Per pt, he typically drinks a pint of liquor daily, and his last drink was sometime overnight last night or maybe this morning. Pt reports he has had withdrawal seizures before and has been intubated for withdrawal complications and flown from this hospital to [place].
[2021-07-03 23:47] LABS: Ethanol (ETOH) < 10 mg/dL
[2021-07-04] VITALS (40 sets, daily range): BP systolic 112–206; BP diastolic 61–127; PULSE 66–112; RESP 2–29; TEMP 36.5–37.2; O2SAT 95–99; BMI 23.1
[2021-07-04] MEDS: METOPROLOL ER 25 MG TABLET PO (01:16)
--- NOTE | 2021-07-04 01:16 | PC.NURSE ---
Metoprolol given late as this medication is not available in ER pyxis.
--- NOTE | 2021-07-04 04:05 | PC.NURSE ---
Pt CIWA increasing, but due to pt boarding status, inpt orders delayed following CIWA protocol. Per orders released from sign/held, pt only able to receive PO ativan. Pt requiring IV Ativan as he is nauseated. ER provider attempted to contact inpatient provider. ER MD to order medication for pt withdrawal symptoms. Pt occasionally hyperventilating in room, then calming down. Pt oriented for this RN, but is now sweaty and increasingly anxious. ER MD at bedside for CIWA assessment.
[2021-07-04] MEDS: PHENobarbital 65 MG/ML VIAL IV (04:18)
[2021-07-04] MEDS: ACETAMINOPHEN 325 MG TABLET 650 MG PO ×2 (08:51→17:22)
[2021-07-04] MEDS: ENOXAPARIN 40 MG/0.4 ML SYRINGE SUBCUT (08:52)
[2021-07-04] MEDS: DEXTROSE 5%-0.9% NS 1,000 ML 100 ML IV (09:37)
[2021-07-04] MEDS: FOLIC ACID 1 MG TABLET PO (09:38)
[2021-07-04] MEDS: CYANOCOBALAMIN (VITAMIN B-12) 500 MCG TABLET 1000 MCG PO (09:38)
[2021-07-04] MEDS: THIAMINE 100 MG TABLET PO (09:38)
[2021-07-04] MEDS: MULTIVITAMIN 1 TABLET 1 TAB PO (09:38)
--- NOTE | 2021-07-04 09:43 | PM.HP.1 ---
History of Present Illness History of Present Illness Date Patient Seen: 07/04/21 Time Patient Seen: 09:43 Chief complaint: A-Fib Narrative: 76-year-old male with chronic alcoholism who presents to the [facility] Emergency Department on July 03, 2021 for evaluation some vague chest pressure and palpitations. Patient with known atrial fibrillation and chronic alcoholism with evidence of poor compliance with medications had a recent admission to [facility] in March of 2021 with similar circumstances it appears Any event he was evaluated in the ER found to have atrial fibrillation with intermittently rapid ventricular response. He also began to show evidence of alcohol withdrawal with increased confusion disorientation some evidence shakiness/jitteriness as well He was treated with his usual oral metoprolol with improvement in rate control and given phenobarbital by the ER for symptoms of alcohol withdrawal. He persisted with some level of confusion although improved after the phenobarbital and was elected to admit him for continue management of mostly his alcohol withdrawal as well as the atrial fibrillation Patient had overall improvement in his CIWA score with dosing of phenobarbital. This morning is reporting feeling somewhat shaky inside but improved. Really does not have any recollection of how or why he ended up here. Is complaining of left-sided chest pain. It is left lateral any does recall falling onto that side and thinks is probably connected. Hurts to take a deep breath and cough some. Patient's history is not exactly clear (I do not have access to his outpatient records at this time) but per most recent note based on his recent hospitalization March 2021 he was determined to have persistent atrial fibrillation at that time. He was rate controlled and discharge. Did not a candidate for cardioversion and not felt to be a candidate for anticoagulation due to his ongoing alcohol abuse. It was reported that he has significant issues with compliance with medications at home and seems to do better when he is taking his medications on a regular basis. His response to the oral metoprolol in the ER would suggest that to be the case in this situation as well Patient's alcoholism is longstanding, he has failed least to rehab stays and continues to drink at least a pint a day, obviously sometimes more. He has had alcohol withdrawal seizures and significant alcohol withdrawal in the past. Per spouse who is with him at least in the ER initially he gets often confused during the day etcetera He normally sees Dr. Cris Reyna at [facility] for his primary care Patient History Medical History Alcohol abuse Alcohol withdrawal Alcohol withdrawal delirium Anemia, chronic disease Atrial fibrillation BPH w urinary obs/LUTS Cardiomyopathy Former smoker Gout History of adenomatous polyp of colon HTN (hypertension) Mixed hyperlipidemia Surgical History History of percutaneous endoscopic gastrostomy (~2020) Family & Social History Family History Mother Lung cancer Sister Rheumatoid arthritis Social History: household members spouse,none Safety & Behavioral: Feels Safe in Current Yes Environment Tobacco & Substance use: Tobacco type cigarettes Smoking Status Former smoker alcohol intake current alcohol intake frequency 3 or more drinks per day Substance Use Type marijuana Meds Home Medications and Allergies Home Medications Medication Instructions Recorded Confirmed Type folic acid 1 mg tablet 1 mg PO DAILY #90 tab 11/12/20 04/09/21 Rx multivitamin with folic acid 400 1 tab PO DAILY #90 tab 11/12/20 04/09/21 Rx mcg tablet (Tab-A-Cherri) cyanocobalamin (vitamin B-12) 1,000 mcg PO DAILY #90 cap 11/17/20 04/09/21 Rx 1,000 mcg capsule trazodone 50 mg tablet 50 mg PO BEDTIME 04/09/21 04/09/21 History metoprolol succinate 25 mg 25 mg PO DAILY #30 tab 06/08/21 Rx tablet,extended release 24 hr Allergies Allergy/AdvReac Type Severity Reaction Status Date / Time amoxicillin [AMOXICILLIN] Allergy Severe SWOLLEN JAW Verified 07/03/21 20:26 clindamycin [CLINDAMYCIN] AdvReac Severe C-DIFF Verified 07/03/21 20:26 Review of Systems Review of Systems ROS: Yes All systems reviewed with the patient and are negative except as otherwise documented Exam Vital Signs (past 8 hours): - 07/04/21 02:00 07/04/21 02:21 07/04/21 02:30 Pulse Rate 98 H 93 H 95 H Respiratory Rate Blood Pressure 162/111 H 162/111 H 154/106 H Pulse Oximetry 97 96 07/04/21 02:47 07/04/21 03:00 07/04/21 03:30 Pulse Rate 90 93 H 101 H Respiratory Rate 18 26 H 29 H Blood Pressure 154/106 H 146/88 H 152/88 H Pulse Oximetry 96 96 97 07/04/21 04:00 07/04/21 04:30 07/04/21 04:35 Pulse Rate 92 H 92 H 90 Respiratory Rate Blood Pressure 138/120 H 152/95 H Pulse Oximetry 95 97 96 07/04/21 05:00 07/04/21 05:30 07/04/21 06:00 Pulse Rate 80 78 85 Respiratory Rate Blood Pressure 152/83 H 141/88 H 143/86 H Pulse Oximetry 98 96 96 07/04/21 06:30 07/04/21 07:00 07/04/21 07:01 Pulse Rate 79 77 75 Respiratory Rate 22 Blood Pressure 136/80 160/84 H Pulse Oximetry 95 97 98 07/04/21 07:30 07/04/21 08:00 07/04/21 08:30 Pulse Rate 77 78 81 Respiratory Rate Blood Pressure 147/84 H 149/91 H Pulse Oximetry 97 97 07/04/21 09:00 Pulse Rate 81 Respiratory Rate 20 Blood Pressure Pulse Oximetry 99 Oxygen Delivery Method Room Air Narrative Exam Narrative: Elderly male in no obvious distress so the looks a bit uncomfortable with his breathing lying in a bed in the emergency department HEENT-normocephalic atraumatic Neck-no bruits Lungs-good breath sounds cough with deep breathing that is clearly uncomfortable, no wheezes or crackles Heart-irregularly regular not tachycardic no murmur Abdomen-benign Extremities-no cyanosis clubbing or edema Neuro-alert oriented x2 (unsure of date), moves all 4 extremities, no tremulousness no abnormal reflexes gait not tested Objective Labs Result Diagrams: 07/03/21 21:05 07/03/21 21:05 Labs: Laboratory Results - last 24 hr 07/03/21 07/03/21 07/03/21 21:05 21:05 21:05 WBC 4.7 RBC 3.63 L Hgb 12.1 L Hct 35.8 L MCV 98.8 MCH 33.2 MCHC 33.6 RDW 16.4 H Plt Count 205 Neut % (Auto) 68.2 Lymph % (Auto) 19.3 L [place] % (Auto) 11.3 Eos % (Auto) 1.0 L Baso % (Auto) 0.2 Neut # (Auto) 3200 Lymph # (Auto) 900 L [place] # (Auto) 500 Eos # (Auto) 0 Baso # (Auto) 0 Sodium 140 Potassium 4.5 Chloride 107 Carbon Dioxide 24 BUN 13 Creatinine 0.92 Estimated GFR > 60 BUN/Creatinine Ratio 14.1 Glucose 94 Calcium 8.7 Magnesium 1.9 Total Bilirubin 0.4 AST 36 ALT 20 Alkaline Phosphatase 75 Total Creatine Kinase 81 CK-MB (CK-2) TNP CK-MB (CK-2) Rel Index TNP Troponin I < 0.012 Total Protein 7.2 Albumin 4.3 Globulin 2.9 Albumin/Globulin Ratio 1.5 Lipase 147 Ethyl Alcohol < 10 SARS-CoV-2 (PCR) 07/03/21 22:08 WBC RBC Hgb Hct MCV MCH MCHC RDW Plt Count Neut % (Auto) Lymph % (Auto) [place] % (Auto) Eos % (Auto) Baso % (Auto) Neut # (Auto) Lymph # (Auto) [place] # (Auto) Eos # (Auto) Baso # (Auto) Sodium Potassium Chloride Carbon Dioxide BUN Creatinine Estimated GFR BUN/Creatinine Ratio Glucose Calcium Magnesium Total Bilirubin AST ALT Alkaline Phosphatase Total Creatine Kinase CK-MB (CK-2) CK-MB (CK-2) Rel Index Troponin I Total Protein Albumin Globulin Albumin/Globulin Ratio Lipase Ethyl Alcohol SARS-CoV-2 (PCR) Negative Assessment & Plan Assessment & Plan narrative: 1. Alcohol withdrawal/alcoholism-patient we monitor per usual [facility] protocol. Has been given phenobarbital via the emergency department and has done well with IV lorazepam previously as well. Both these as well as oral lorazepam will be utilized to control symptoms of withdrawal. Patient will be offered options for treatment of his chronic alcoholism as well. He will have the usual seizure precautions etcetera 2. Atrial fibrillation rapid ventricular response-it appears patient really needs to be on his usual home medications and has good control. Continue usual home medications and monitor 3. History of cardiomyopathy with congestive heart failure-no active symptoms at this time 4. Anemia-patient chronically anemic at times with macrocytosis. Almost certainly related to his chronic alcoholism. He seems to be a baseline no further intervention indicated at this time unless evidence of active bleeding either from an upper or lower GI source. He would be at high risk of having an upper GI source but at this point there is apparently no evidence cirrhosis and or complications related to that 5. Code status-patient has previously been a full code which is appropriate 6. VTE prophylaxis-patient appropriate for Lovenox which is been ordered 7. Left chest pain-almost certainly chest wall injury. I do not see any evidence of bony injury on his single view chest x-ray done earlier. No other infiltrate either other changes. His oxygen saturation is remain normal. I think some low-dose oxycodone be appropriate for treatment Overall patient appears to be improved over status at time of admission. I think getting him back on his usual meds as well as monitoring him for worsening of his alcohol withdrawal is appropriate. I anticipate he will likely be ready for discharge in the next 24 hours COVID-19 COVID-19 status: Negative
--- NOTE | 2021-07-04 10:16 | PC.NURSE ---
Assisted patient up to chair to switch to hospital bed. Patient splinting left side of chest, c/o pain. tender to touch and deep breath. Patient tachypnic. No obvious bruising noted. Patient states pain is getting worse than when he came in. Primary RN aware, hospitalist being notified
--- NOTE | 2021-07-04 10:21 | PC.NURSE ---
Dr. Hammonds arrived to the ER as I was calling him. Updated Dr. Hammonds on patient's condition.
[2021-07-04] MEDS: OXYCODONE IR 5 MG TABLET PO ×2 (10:54→17:22)
--- NOTE | 2021-07-04 11:25 | PT-IP ANOTE ---
EMR reviewed and pt is to be admitted to the acute floor but pt has not been on the floor yet. will await until pt arrives to the acute floor.
[2021-07-04] MEDS: LORazepam 1 MG TABLET PO ×2 (12:43→17:23)
--- NOTE | 2021-07-04 12:46 | PC.NURSE ---
Pt door open and assessed attempting to get out of bed over bed rail, states I want to stand, pt with labored breathing. Educated pt on concern for breathing and fall risk status r/t monitors, pt verbalizes understanding. Education continually reinforced. Bed alarm turned on.
--- NOTE | 2021-07-04 14:08 | PC.NURSE ---
Admitted from ER @ 1350, arrived in bed, tele Afib CVR 70's no CP, no SOB. VSS. Pt reports occasional drinking of a beer, not every day though Reluctant to disclose previous ETOH withdraw symptoms. Reminded of previous seizure activity when placing seizure pads. I guess that was here not too long ago 1L Spo2 99%, trial RA.
--- NOTE | 2021-07-04 15:05 | PT.IIE ---
Medical History (Last Reviewed 07/04/21 @ 09:56 by Sergio Hammonds MD) Alcohol abuse Alcohol withdrawal Alcohol withdrawal delirium Anemia, chronic disease Atrial fibrillation BPH w urinary obs/LUTS Cardiomyopathy Former smoker Gout History of adenomatous polyp of colon HTN (hypertension) Mixed hyperlipidemia Physical Therapy Inpatient Evaluation/Re-Eval M1 PT/OT-IP Prior Functional Status Start: 07/04/21 17:09 Freq: NEEDED Status: Active Protocol: Document 07/04/21 15:05 AB (Rec: 07/04/21 17:16 AB [id number]) Medical Review Prior Functional Status Medical History Reviewed Yes Communication able to make needs known Mobility and Gait pt stated that he is independent with all mobilities and ambulation without AD Social History Household Members spouse,none Living Arrangements House Number of Floors (Floors) Two Floors Number of Stairs To Enter/Railing? 3 steps wide rails to enter the house 14 steps R rail ascending to bedroom level Home Environment Standard Height Toilet,Walk in Shower,Tub/Shower Home Equipment Front Wheel Walker Additional Social History Comment spouse will be leaving to go to [place] in 2 days per pt M2 PT-IP Current Condition Start: 07/04/21 17:09 Freq: NEEDED Status: Active Protocol: Document 07/04/21 15:05 AB (Rec: 07/04/21 17:16 AB [id number]) Physical Therapy Current Condition Current Condition Evaluation Date 07/04/21 Treatment Diagnosis A-fib; alcohol withdrawal; difficulty in walking Onset Date 07/04/24 M3 PT-IP Subjective Start: 07/04/21 17:09 Freq: NEEDED Status: Active Protocol: Document 07/04/21 15:05 AB (Rec: 07/04/21 17:16 AB [id number]) Subjective Physical Therapy Visit Type Type Initial Evaluation Visit Start Time 15:05 Visit Stop Time 15:26 Total Visit Minutes 21 Number of CAR AUDIO INSTALLER Visits 0 Physical Therapy Visit Comments Patient Comments agreeable to do PT Therapy Pain Assessment Pain Present Pain Present Denied Pain M4 PT-IP Mobility and Gait Start: 07/04/21 17:09 Freq: NEEDED Status: Active Protocol: Document 07/04/21 15:05 AB (Rec: 07/04/21 17:16 AB [id number]) PT-Bed Mobility Assessment Supine to Sit Supine to Sit Standby Assistance Sit to Supine Sit to Supine Standby Assistance PT-Transfer Assessment Sit to and From Stand Sit to and from Stand Standby Assistance Equipment Transfer Assistive Device None,Gait Belt Orthotic/Prosthetic Devices or Brace: No Gait Assessment Gait Gait Assistance Required: Standby Assistance,1 Person Assist Distance (Feet) 30 Able to Maintain Weight Bearing Status Yes During Gait Assistive Devices Assistive Device None,Gait Belt Orthotic/Prosthetic Devices or Brace: No Factors Limiting Gait Function Factors Limiting Gait Function Decreased Activity Tolerance, Decreased Strength,Poor Safety Awareness PT-Balance Assessment Sitting Balance and Reactions Static Sitting Balance Ability Good Dynamic Sitting Balance Ability Good Standing Balance and Reactions Static Standing Balance Ability Good Dynamic Standing Balance Ability Fair Device Used without AD M5 PT-IP Objective Assessments Start: 07/04/21 17:09 Freq: NEEDED Status: Active Protocol: Document 07/04/21 15:05 AB (Rec: 07/04/21 17:16 AB [id number]) Orientation Orientation/Cognition Level of Alertness Alert Orientation Name,Place,Situation Language Function Ability No Deficits Noted Safety Awareness Decreased Safety Awareness Memory Description No Deficits Noted Gross Range of Motion Lower Extremity ROM Assessment Within Functional Limits Strength Lower Extremity Strength Hip 4-/5 Knee 4-/5 Muscle Tone Muscle Tone WNL Yes M6 PT-IP Treatment Start: 07/04/21 17:09 Freq: NEEDED Status: Active Protocol: Document 07/04/21 15:05 AB (Rec: 07/04/21 17:16 AB [id number]) Physical Therapy Treatment Education Education Provided Safety M7 PT-IP Assessment and Plan Start: 07/04/21 17:09 Freq: NEEDED Status: Active Protocol: Document 07/04/21 15:05 AB (Rec: 07/04/21 17:16 AB [id number]) PT Summary Assessment and Plan Potential Rehabilitation Potential Fair Status of Condition at Evaluation Evolving Summary Impairments Pain,ROM,Strength,Balance, Coordination,Sensation,Tone, Cognition,Bed Mobility, Transfers,Gait,Activity Tolerance Assessment Summary pt requiring SBA with mobility without AD with unsteady gait but no LOB. Pt with A-fib during mobility limiting activity. pt has stairs to maneuver at home and needs to be able to complete stairs prior to d/c. pt stated that spouse will be leaving to [place] in 2 days and pt will not have any assistance at home. will continue to assess progress. Goals Bed Mobility Goal Independent Transfer Goal Independent Gait Goal Independent Gait Distance 300 Other Goals up/down 14 steps R rail ascending mod I Days to Meet Goals 10 Frequency of Treatment Frequency Of Treatment Once a Day Treatment Plan Physical Therapy Treatment Plan Bed Mobility Training,Transfer Training,Gait Training, Therapeutic Exercise,Balance Retraining,Discharge Planning, Hot or Cold Pack,Neuromuscular Re-ed,Coordination Retraining Recommendations To Nursing Amount of Assist Needed 1 Person Assist Discharge Recommendations PT Discharge Recommendations Home with Assistance Transportation Needs at Discharge Private Vehicle
[2021-07-05] VITALS: BP 140/99; PULSE 76; RESP 16; TEMP 36.7; O2SAT 94
[2021-07-05 05:30] VITALS: BP 108/80; PULSE 86; RESP 20; TEMP 36.6; O2SAT 96
--- NOTE | 2021-07-05 08:27 | PM.DS.1 ---
History of Present Illness History of Present Illness Date Patient Seen: 07/05/21 Time Patient Seen: 08:27 Date of Onset of Symptoms: 07/02/21 Chief complaint: A-Fib Narrative: See dictation by Dr. Hammonds Discharge Providers Provider Date of admission: 07/04/21 02:02 Discharge Date: 07/05/21 Primary care physician: Cris Reyna MD Consults: 07/04/21 08:31 Consult to Physical Therapy Evaluate & Treat Comment: Physician Instructions: Evaluate and Treat 07/04/21 10:42 Consult to Appraisal Specialist Routine Comment: offer resources for treatment of alcohol misuse 07/04/21 18:39 Consult to Appraisal Specialist Routine Comment: Discharge provider: Lc Ambrose MD Summary Hospital Course Discharge Diagnosis: Atrial fibrillation with rapid ventricular response Alcohol withdrawal/alcoholism History of cardiomyopathy with congestive heart failure Anemia Chest pain Hospital Course: Atrial fibrillation with rapid ventricular response. Patient was admitted placed back on his usual medicine and has been in good control ever since. Did not convert. Feeling well. Has not been actively taking his medicine at home we discussed that importance of him taking that. He understands. Questions answered. At this point will continue usual medicines discharge home importance of not drinking discussed. He understands. Whether not he will participate is unknown. Alcohol withdrawal/alcoholism. Patient actually even denies drinking so I do not think he wants to go to treatment. But no other changes. Patient has been stable. CIWA scores 1. Up moving around. Appears to be back to baseline or at least close. Okay to discharge home. Encouraged not to drink. History of cardiomyopathy. Not an issue during this admission. Anemia. [place] to be secondary to alcohol toxicity. Will be followed as an outpatient. Left chest pain. Negative workup. [place] to be secondary to chest wall injury. Patient will call if any change follow from there. Exam Vital Signs (past 8 hours): - 07/05/21 05:30 Temperature 97.8 F Pulse Rate 86 Respiratory Rate 20 Blood Pressure 108/80 Pulse Oximetry 96 Oxygen Delivery Method Nasal Cannula Oxygen Flow Rate 0 Narrative Exam Narrative: Alert smiling male in no acute distress HEENT exam unremarkable neck supple without adenopathy lungs are clear. Heart is irregular rhythm without murmurs clicks rubs or gallops controlled rate. Extremities without cyanosis clubbing edema. Neurologic exam peers intact. No shakiness or tremor. Objective Labs Result Diagrams: 07/03/21 21:05 07/03/21 21:05 Labs: Laboratory Results - last 24 hr 07/04/21 13:51 Nasal Screen MRSA (PCR) Negative for mrsa PFSH Medical History Alcohol abuse Alcohol withdrawal Alcohol withdrawal delirium Anemia, chronic disease Atrial fibrillation BPH w urinary obs/LUTS Cardiomyopathy Former smoker Gout History of adenomatous polyp of colon HTN (hypertension) Mixed hyperlipidemia Surgical History History of percutaneous endoscopic gastrostomy (~2019) Family History Mother Lung cancer Sister Rheumatoid arthritis Social History marital status: household members: spouse and none occupational status: previously employed Smoking Status: Former smoker alcohol intake: current substance use type: does not use Discharge Assessment & Plan Assessment and Plan Assessment: Atrial fibrillation with RVR. [place] to be secondary to poor compliance with medication. And alcohol abuse. We discussed stopping alcohol and taking his medicine on a consistent basis Plan of Treatment: Discharge home. Follow up with his usual provider Dr. Reyna next week. Discharge Plan Discharge Plan Patient Disposition: Home Discharge orders & Medications Prescriptions: New thiamine mononitrate (vit B1) 100 mg Tablet 100 mg PO DAILY Qty: 90 1RF multivitamin with folic acid [Tab-A-Cherri] 400 mcg Tablet 1 tab PO DAILY Qty: 90 0RF Continued metoprolol succinate 25 mg tablet extended release 24 hr 25 mg PO DAILY Qty: 30 0RF Label Comments: Pt reports taking every other day, at best. Follow up/Referrals: Cris Reyna MD [Primary Care Provider] - 1 Week (*Appt with on June @8:15am [phone].) Diet/Activity/Treatments Diet: Diet as Tolerated Activity: As tolerated Skin/Wound/Dressing Care Report to your healthcare provider any signs of infection, such as:: increased pain Visit Report/Discharge Packet Instructions: Delirium Tremens, DI for Alcohol Use Disorder Discharge Data Primary Care Provider: Cris Reyna Attending Provider: Cris Reyna Quality VTE Deep Vein Thrombosis/Pulmonary Embolism Present on Admission: No
[2021-07-05 08:45] VITALS: BP 146/91; PULSE 70
[2021-07-05] MEDS: THIAMINE 100 MG TABLET PO (08:45)
[2021-07-05] MEDS: METOPROLOL ER 25 MG TABLET PO (08:45)
[2021-07-05] MEDS: MULTIVITAMIN 1 TABLET 1 TAB PO (08:45)
[2021-07-05] MEDS: FOLIC ACID 1 MG TABLET PO (08:45)
[2021-07-05] MEDS: CYANOCOBALAMIN (VITAMIN B-12) 500 MCG TABLET 1000 MCG PO (08:45)
[2021-07-05 08:47] VITALS: BP 146/91; PULSE 80; RESP 17; TEMP 36; O2SAT 97
--- NOTE | 2021-07-05 08:59 | CM.DANOTE ---
DCP: Payor: Medicare PCP: MD Axel Per MD, pt is ready for discharge today. Patient is a 76 y.o. M who was admitted for A-fib and ETOH withdrawal. Pt last admitted in 2021. DCP met with pt this morning. Pt was sitting up in chair eating breakfast. Alert and oriented. Spouse is currently in town but pt states she is going to [place] for a month following his discharge. Pt states that he still has Meals on Wheels coming to the home. Pt denies any HH needs at this time. DCP inquired about ETOH resources. Pt denies currently being involved in treatment and AA meetings as his license has been suspended for the past year. Pt working with his PCP to get it re-instated. Pt declines any further resources at this time. Updated RN. P: Pt to discharge home via spouse POV around 11am. No needs identified. Esther Palomares RN/ANDRES Discharge Planning/Care Management CM Discharge Assessment Start: 07/05/21 08:55 Freq: Status: Active Protocol: Document 07/05/21 08:55 EDDA (Rec: 07/05/21 08:58 [id number]) Discharge Planning Assessment Assigned [facility] Therapist Esther Palomares RN/ANDRES Advance Directives? No Advance Directives on File No History Provided By Patient,Medical Record Has Patient been admitted in last 30 No days? Prior Living Arrangements House Household Members spouse Type of transporation used prior to Relies on Others admit Comment License currently suspended. Independent with ADL's Yes Is patient alert and oriented? Yes Caregiver for Another No Comment Patient reports that he has walker but does not use. Comment Patient with h/o etoh abuse. Patient reports that he has gone to multiple treatment centers for ETOH abuse in the past. Patient states they didn't work. Initial interview patient showed no desire to go to treatment for his ETOH abuse. Discharge Plan Home Transportation Arrangement Patient reports that he may have friend or family member to provide him transport. Referrals Initiated None needed Whiteboard Updated in Patient Room with Yes name and ext. # of [facility] Therapist Review Status In Process Please Provide Date Initial DC 07/05/21 Assessment Was Performed Next Review Type Continued Stay Review
[2021-07-05 09:15] VITALS: PULSE 67
--- NOTE | 2021-07-05 11:40 | PT-IP ANOTE ---
Pt was standing middle of room unsupported/ stable balance and dressed ready for DC in room when arrived, nursing in room giving DC instructions. Pt stated no questions or needs from PT, ready to go home, declined stair assessment and working with therapy. LAST CHALKER recommended calling physician if further needs arise and need referral to PT. Pt was not seen by LAST CHALKER this day.
--- NOTE | 2021-07-05 12:27 | PC.NURSE ---
Discharge Note Patient A&O, VSS, RA, no complaints of pain/discomfort. Discharge information reviewed with patient. All questions/concerns addressed. TELE/PIV discontinued. Patient able to dress self and pack all belongings. Patient taken down via wheelchair to POV.
== END 2021-07-05 11:45 | disposition home or self-care (01) | DRG 897 ==
LOC: ED 07-04 00:07 → AC 07-04 05:37 → ICU 07-06 12:02
PROVIDERS: Admitting Provider Student in an Organized Health Care Education/Training Program; Emergency Provider Emergency Medicine; PCP Student in an Organized Health Care Education/Training Program; Referring Provider Student in an Organized Health Care Education/Training Program; Visit Provider Student in an Organized Health Care Education/Training Program
DX: F10.239 Alcohol dependence with withdrawal, unspecified (principal); I48.19 Other persistent atrial fibrillation; I10 Essential (primary) hypertension; Y90.0 Blood alcohol level of less than 20 mg/100 ml; Z87.891 Personal history of nicotine dependence; Z91.14 Patient's other noncompliance with medication regimen; Z20.822 Contact with and (suspected) exposure to COVID-19
CPT/HCPCS: 36415; 71045; 80053; 80320; 82550; 83690; 83735; 84484; 85025; 87635; 87797; 93005; 93010; 94760; 96365; 96375; 96376; 97161; 99223; 99285; C9803; G0378; J1650; J2560

== ENCOUNTER 2021-07-23 00:30 | Inpatient (IN) | payer MEDICARE, OTHER, SELFPAY ==
[2019-07-03 21:02] VITALS: PULSE 98; RESP 16; O2SAT 98
[2021-07-04 03:12] VITALS: BMI 23.1
[2021-07-23] VITALS (13 sets, daily range): BP systolic 117–180; BP diastolic 71–103; PULSE 69–99; RESP 16–52; TEMP 36.4–36.8; O2SAT 97–100; BMI 24.3
--- NOTE | 2021-07-23 00:39 | DI.RAD.S_ITS ---
PROCEDURE: XR CHEST 1V INDICATIONS: Palpitations TECHNIQUE: One view of the chest was acquired. COMPARISON: [facility], CR, XR CHEST 1V, 11/07/2020, 17:01. [facility], CT, CT CHEST ABDOMEN PELVIS WITH CONTRAST, 06/28/2021, 19:57. [facility], CR, XR CHEST 1V, 06/08/2021, 20:39. [facility], CR, XR CHEST 1V, 07/03/2021, 20:39. FINDINGS: Surgical changes and devices: None. Lungs and pleura: There are persistent left retrocardiac opacities consistent with consolidation or atelectasis. Right lung is clear. No pleural effusions or pneumothorax. Mediastinum: Mediastinal contours appear normal. Heart size is normal. Bones and chest wall: No suspicious bony lesions. Overlying soft tissues appear unremarkable. IMPRESSION: 1. Persistent left retrocardiac consolidation or atelectasis. Dictated by: Dorian Solano M.D. on 07/23/2021 at 1:27 Approved by: Dorian Solano M.D. on 07/23/2021 at 1:29
--- NOTE | 2021-07-23 00:40 | ED.DIZZY ---
HPI - Dizziness General Chief Complaint: Arrhythmia/Palpitations Stated Complaint: Rapid AFIB Time Seen by Provider: 07/23/21 00:33 History of Present Illness HPI Narrative: Patient brought in by ambulance from home for complaints of off and on dizziness and palpitations through the day. Patient does drink alcohol regularly. Last alcohol 3 days ago. Patient primary care is Dr. Cris Reyna, cardiology is Dr. San. Denies any chest pain. Has not been taking his medications for atrial fibrillation or his anticoagulation medication. Denies any seizures or confusion or any hallucinations. Patient is awake alert oriented x4. EMS gave patient 20 mg of Cardizem because his heart rate was 150. It is now 80. Related Data Previous Rx's Medication Instructions Recorded metoprolol succinate 25 mg 25 mg PO DAILY #30 tabs 06/08/21 tablet,extended release 24 hr multivitamin with folic acid 400 1 tab PO DAILY #90 tabs 07/05/21 mcg tablet (Tab-A-Cherri) thiamine mononitrate (vit B1) 100 100 mg PO DAILY #90 tabs 07/05/21 mg tablet Allergies Allergy/AdvReac Type Severity Reaction Status Date / Time amoxicillin [AMOXICILLIN] Allergy Severe SWOLLEN JAW Verified 07/03/21 20:26 clindamycin [CLINDAMYCIN] AdvReac Severe C-DIFF Verified 07/03/21 20:26 Review of Systems Review of Systems Narrative: GENERAL: Denies chills, fatigue, malaise, fever, sweats. HEENT: Denies sinus pain, ear pain, sore throat RESPIRATORY: Denies dyspnea, cough CARDIOVASCULAR: Denies chest pain, positive for palpitations GASTROINTESTINAL: Denies nausea, vomiting, abdominal pain : Denies dysuria, frequency, hematuria MUSCULOSKELETAL: denies muscle or bony pain SKIN: Denies rash, skin lesions NEUROLOGIC: Denies weakness, numbness ROS Unobtainable: All systems reviewed & are unremarkable except as noted in HPI and below Patient History Medical History Alcohol abuse Alcohol withdrawal Alcohol withdrawal delirium Anemia, chronic disease Atrial fibrillation BPH w urinary obs/LUTS Cardiomyopathy Former smoker Gout History of adenomatous polyp of colon HTN (hypertension) Mixed hyperlipidemia Surgical History History of percutaneous endoscopic gastrostomy (~2019) Family History Mother Lung cancer Sister Rheumatoid arthritis Social History marital status: household members: spouse occupational status: previously employed Smoking Status: Former smoker alcohol intake: current substance use type: does not use Smoking Status: Former smoker alcohol intake frequency: 3 or more drinks per day Alcohol type: beer, wine and hard liquor Substance Use Type: marijuana Exam Narrative Exam Narrative: GENERAL: in no distress, not toxic not dyspneic HEAD: Normocephalic. EYES: Pupils equal round No scleral icterus. ENT: Mucous membranes moist. NECK: Trachea midline. CARDIOVASCULAR: Irregularly irregular RESPIRATORY: Clear to auscultation. Breath sounds equal bilaterally. No wheezes, rales, or rhonchi. GASTROINTESTINAL: Abdomen soft, non-tender EXTREMITIES: No gross deformities. BACK: No flank tenderness. NEURO: AOx4. Clear speech SKIN: Warm and dry PSYCH: Not anxious, is cooperative, no hallucinations Initial Vital Signs Initial Vital Signs: Vital Signs Pulse Rate 79 07/23/21 00:42 Respiratory Rate 29 H 07/23/21 00:42 Pulse Oximetry 99 07/23/21 00:42 Oxygen Delivery Method 07/23/21 00:42 Oxygen Flow Rate 2 07/23/21 00:42 Course Course Course Narrative: No new issues during course of stay Decision to Admit Date: 07/23/21 Decision to Admit time: 02:05 Orders Ordered: ED Orders 07/23/21 00:39 XR chest 1V Stat EKG-12 Lead Stat 07/23/21 00:45 Complete Blood Count AUTO DIFF Stat Comprehensive Metabolic Panel Stat ETOH [Ethanol (ETOH)] Stat Partial Thromboplastin Time Stat Prothrombin Time INR Stat Troponin & CK Cardiac Panel Stat 07/23/21 01:50 COVID19 -Nasal RAPID/Pre-Proc Stat 07/23/21 02:02 Urinalysis and Microscopic Stat Urine Drug Screen, Rapid Stat Folic Acid (Folic Acid 1 Mg Tablet) 1 mg PO DAILY MIKEL Lorazepam (Lorazepam 2 Mg/Ml Inj) 0 mg IV CIWAPRN PRN; Protocol PRN Reason: Alcohol Withdrawal Multivitamins (Multivitamin 1 Tablet) 1 tab PO DAILY MIKEL Ondansetron HCl (Ondansetron 4 Mg/2 Ml Inj) 4 mg IV Q6HR PRN PRN Reason: Nausea And Vomiting Thiamine HCl (Thiamine 100 Mg Tablet) 100 mg PO DAILY MIKEL Stop: 07/26/21 09:01 Reevaluation(s) Reevaluation #1: No atrial fibrillation with RVR on monitor. No seizures during course of stay in the department. Reviewed results with patient agrees for admit Time: 02:06 Consultations Consultation #1: Spoke with primary care risk control analyst dr rogers, will admit Time: 02:06 Vital Signs Vital signs: Vital Signs - 8 hr 07/23/21 00:44 07/23/21 00:42 07/23/21 00:44 Temperature 98.0 F Pulse Rate 80 79 Respiratory Rate 28 H 29 H Blood Pressure 156/103 H 180/99 H Pulse Oximetry 100 99 Oxygen Delivery Method Room Air Nasal Cannula Oxygen Flow Rate 2 07/23/21 00:44 07/23/21 01:00 07/23/21 01:00 Temperature Pulse Rate 97 H 82 Respiratory Rate 52 H 23 Blood Pressure 154/81 H Pulse Oximetry 98 97 Oxygen Delivery Method Oxygen Flow Rate 07/23/21 01:30 07/23/21 01:30 07/23/21 02:00 Temperature Pulse Rate 69 Respiratory Rate 18 Blood Pressure 141/78 H 132/71 Pulse Oximetry 97 Oxygen Delivery Method Oxygen Flow Rate 07/23/21 02:00 07/23/21 02:30 07/23/21 02:30 Temperature Pulse Rate 83 86 Respiratory Rate 21 25 H Blood Pressure 120/79 Pulse Oximetry 99 Oxygen Delivery Method Oxygen Flow Rate MDM - Dizziness Differential Diagnosis Differential diagnosis: Likely other (Atrial fibrillation/noncompliance/alcohol abuse/alcohol withdrawal) Lab Data Result diagrams: 07/23/21 00:45 07/23/21 00:45 Labs: Lab Results 07/23/21 07/23/21 07/23/21 Range/Units 00:45 00:45 00:45 WBC 6.3 (4.5-11.0) X10^3/uL RBC 3.77 L (4.5-5.9) X10^6/uL Hgb 12.5 L (13.5-17.5) g/dL Hct 36.9 L (41-53) % MCV 97.8 (80-100) fL MCH 33.1 (26-34) PG MCHC 33.8 (30-36) % RDW 16.2 H (11.6-14.8) % Plt Count 124 L (150-400) X10^3/uL Neut % (Auto) 77.1 H (50-75) % Lymph % (Auto) 13.9 L (25-40) % [place] % (Auto) 6.6 (3-14) % Eos % (Auto) 1.2 L (2-4) % Baso % (Auto) 1.2 (0-2) % Neut # (Auto) 4800 (1570-8834) /uL Lymph # (Auto) 900 L (7031-9566) /uL [place] # (Auto) 400 (0-900) /uL Eos # (Auto) 100 (0-450) /uL Baso # (Auto) 100 (0-100) /uL PT 10.7 (10.1-12.7) SECONDS INR 1.0 (0.9-1.3) APTT 27 D (26.4-36.2) SECONDS Sodium 138 (137-145) mmol/L Potassium 5.0 (3.4-5.1) mmol/L Chloride 104 (98-107) mmol/L Carbon Dioxide 18 L (22-32) mmol/L BUN 14 (9-20) mg/dL Creatinine 1.08 (0.66-1.25) mg/dL Estimated GFR > 60 (>60) mL/min BUN/Creatinine Ratio 13.0 (6-22) Glucose 83 (80-110) mg/dL Calcium 8.8 (8.4-10.2) mg/dL Total Bilirubin 1.0 (0.2-1.3) mg/dL AST 48 (17-59) IU/L ALT 29 (<50) IU/L Alkaline Phosphatase 85 (38-126) U/L Total Creatine Kinase 84 (55-170) U/L CK-MB (CK-2) TNP CK-MB (CK-2) Rel Index TNP Troponin I < 0.012 (0.01-0.034) ng/mL Total Protein 7.2 (6.3-8.2) g/dL Albumin 4.3 (3.5-5.0) g/dL Globulin 2.9 (1.7-4.1) g/dL Albumin/Globulin Ratio 1.5 (1.0-2.8) Ethyl Alcohol ( - 10) mg/dL SARS-CoV-2 (PCR) (Negative) 07/23/21 07/23/21 Range/Units 00:45 01:50 WBC (4.5-11.0) X10^3/uL RBC (4.5-5.9) X10^6/uL Hgb (13.5-17.5) g/dL Hct (41-53) % MCV (80-100) fL MCH (26-34) PG MCHC (30-36) % RDW (11.6-14.8) % Plt Count (150-400) X10^3/uL Neut % (Auto) (50-75) % Lymph % (Auto) (25-40) % [place] % (Auto) (3-14) % Eos % (Auto) (2-4) % Baso % (Auto) (0-2) % Neut # (Auto) (0025-8943) /uL Lymph # (Auto) (7730-4799) /uL [place] # (Auto) (0-900) /uL Eos # (Auto) (0-450) /uL Baso # (Auto) (0-100) /uL PT (10.1-12.7) SECONDS INR (0.9-1.3) APTT (26.4-36.2) SECONDS Sodium (137-145) mmol/L Potassium (3.4-5.1) mmol/L Chloride (98-107) mmol/L Carbon Dioxide (22-32) mmol/L BUN (9-20) mg/dL Creatinine (0.66-1.25) mg/dL Estimated GFR (>60) mL/min BUN/Creatinine Ratio (6-22) Glucose (80-110) mg/dL Calcium (8.4-10.2) mg/dL Total Bilirubin (0.2-1.3) mg/dL AST (17-59) IU/L ALT (<50) IU/L Alkaline Phosphatase (38-126) U/L Total Creatine Kinase (55-170) U/L CK-MB (CK-2) CK-MB (CK-2) Rel Index Troponin I (0.01-0.034) ng/mL Total Protein (6.3-8.2) g/dL Albumin (3.5-5.0) g/dL Globulin (1.7-4.1) g/dL Albumin/Globulin Ratio (1.0-2.8) Ethyl Alcohol 24 H ( - 10) mg/dL SARS-CoV-2 (PCR) Negative (Negative) Point of Care Testing Glucose POC 67 Imaging Data Chest x-ray: Radiologist's Impression: [address] [address] XRay Report Signed Patient: Master Porter MR#: [id number] : 1945 Acct:[id number] Age/Sex: 76 / M Date of Service: 07/23/21 Loc: ED Accession Number: [id number] ?? Procedure: XR chest 1V Ordering Provider: Bg Miramontes MD PROCEDURE:? XR CHEST 1V ? INDICATIONS:? Palpitations ? TECHNIQUE:? One view of the chest was acquired.? ? COMPARISON:? [facility], CR, XR CHEST 1V, 11/07/2020, 17:01.? [facility], CT, CT CHEST ABDOMEN PELVIS WITH CONTRAST, 06/28/2021, 19:57.? [facility], CR, XR CHEST 1V, 06/08/2021, 20:39.? [facility], CR, XR CHEST 1V, 07/03/2021, 20:39. ? FINDINGS:? ? Surgical changes and devices:? None.? ? Lungs and pleura:? There are persistent left retrocardiac opacities consistent with consolidation or atelectasis.? Right lung is clear.? No pleural effusions or pneumothorax.? ? Mediastinum:? Mediastinal contours appear normal.? Heart size is normal.? ? Bones and chest wall:? No suspicious bony lesions.? Overlying soft tissues appear unremarkable.? ? IMPRESSION:? ? 1. Persistent left retrocardiac consolidation or atelectasis. ? ? Dictated by: Dorian Solano M.D. on 07/23/2021 at 1:27 ? ? Approved by: Dorian Solano M.D. on 07/23/2021 at 1:29 ? ECG Data Interpretation: Atrial fibrillation rate [address] elevation or depression MDM Narrative Medical decision making narrative: Appropriate for admission for alcohol withdrawal. Patient will need treatment for prevention DTs. Withdrawals likely triggering atrial fibrillation which is resolved with Cardizem. Patient has been noncompliant with his medications. Discharge Plan Departure Patient Disposition: Admitted As Inpatient Clinical Impression: Alcohol withdrawal, Atrial fibrillation Admit Date/Time: 07/23/21 02:37 Admit Provider: Wyatt Rogers
[2021-07-23 01:00] LABS: Add Manual Diff / Slide Review NO; Basophils Absolute Auto 100 /uL (0-100); Basophils Percent Auto 1.2 % (0-2); Eosinophils Absolute Auto 100 /uL (0-450); Eosinophils Percent Auto 1.2 % (2-4); Hematocrit 36.9 % (41-53); Hemoglobin 12.5 g/dL (13.5-17.5); Lymphocytes Absolute Auto 900 /uL (1100-4500); Lymphocytes Percent Auto 13.9 % (25-40); Mean Corpuscular HGB Conc 33.8 % (30-36); Mean Corpuscular Hemoglobin 33.1 PG (26-34); Mean Corpuscular Volume 97.8 fL (80-100); Monocytes Absolute Auto 400 /uL (0-900); Monocytes Percent Auto 6.6 % (3-14); Neutrophils Absolute Auto 4800 /uL (1500-7000); Neutrophils Percent Auto 77.1 % (50-75); Platelet Count 124 X10^3/uL (150-400); Red Blood Cell Count 3.77 X10^6/uL (4.5-5.9); Red Cell Distribution Width 16.2 % (11.6-14.8); White Blood Cell Count 6.3 X10^3/uL (4.5-11.0)
[2021-07-23 01:01] LABS: Prothrombin Time 10.7 SECONDS (10.1-12.7)
[2021-07-23 01:03] LABS: PTT Partial Thromboplastin Tim 27 SECONDS (26.4-36.2)
[2021-07-23 01:04] LABS: Ethanol (ETOH) 24 mg/dL
[2021-07-23 01:09] LABS: Alanine Aminotransferase 29 IU/L (<50); Albumin 4.3 g/dL (3.5-5.0); Albumin Globulin Ratio 1.5 (1.0-2.8); Alkaline Phosphatase 85 U/L (38-126); Aspartate Aminotransferase 48 IU/L (17-59); Blood Urea Nitrogen 14 mg/dL (9-20); Calcium 8.8 mg/dL (8.4-10.2); Carbon Dioxide 18 mmol/L (22-32); Chloride 104 mmol/L (98-107); Creatine Kinase 84 U/L (55-170); Estimated Glomerular Filt Rate > 60 mL/min (>60); Globulin 2.9 g/dL (1.7-4.1); Glucose 83 mg/dL (80-110); HEMOLYSIS < 15 (0-50); Sodium 138 mmol/L (137-145); Total Protein 7.2 g/dL (6.3-8.2)
[2021-07-23 01:21] LABS: Troponin I < 0.012 ng/mL (0.01-0.034)
[2021-07-23 02:14] LABS: COVID19 -Nasal RAPID Negative (Negative)
--- NOTE | 2021-07-23 04:19 | PC.NURSE ---
Pt. admitted in room 217, restless but declined to take Lorazepam. Denies chest pain, breathing very shallow & tachypneic RR 24. But his saturation is 99% in room air. Encouraged to take deep breath through his nose & exhale through his mouth. Reported had a fall at home bed alarm activated & seizures pad placed. Also instructed to call for help if he needed to get out of bed. Call light with in reached. Will cont. POC & monitor.
[2021-07-23 04:28] LABS: Appearance Urine UA CLEAR; Bilirubin Urine UA NEGATIVE (NEGATIVE); Color Urine UA YELLOW; Glucose Urine UA NEGATIVE (Negative); Ketones Urine UA TRACE (NEGATIVE); Leukocyte Esterase Urine UA NEGATIVE (NEGATIVE); Nitrite Urine UA NEGATIVE (Negative); Occult Blood Urine UA NEGATIVE (Negative); Protein Urine UA 1+ (Negative); UR Morphine/Opiate cutoff 300 Negative (Negative); Ur Creatinine Normal (Normal); Ur Specific Gravity Normal (Normal); Urine Amphetamines Negative (Negative); Urine Barbiturates Negative (Negative); Urine Benzodiazepines Negative (Negative); Urine Cocaine Negative (Negative); Urine MDMA Negative (Negative); Urine Methadone Negative (Negative); Urine Methamphetamines Negative (Negative); Urine Oxycodone Negative (Negative); Urine Phencyclidine Negative (Negative); Urine Tetrahydrocannabinol Negative (Negative); Urine Tricyclic Antidepressant Negative (Negative); Urine pH Normal (Normal); Urobilinogen Urine UA 0.2 E.U./dL (0.2); pH Urine UA 6.5 (4.5-8.0)
[2021-07-23 04:30] LABS: RBC Urine None Seen (0-5/HPF); WBC Urine 0-1/HPF (0-5/HPF)
[2021-07-23 04:31] LABS: Bacteria Urine None Seen; Mucus Urine 2+ (Negative); Squamous Epithelial Cell Urine 0-1 /HPF (0-5/HPF)
[2021-07-23 04:32] LABS: Culture Indicated Urine Cult Not Indicated
--- NOTE | 2021-07-23 05:51 | PC.NURSE ---
CIWA 11 when he was trying to get OOB. C/O the bed was making all the noise. But declined to take his Lorazepam, states I don't like taking medicine. Placed air mattress to cushion in his bed & his resting quietly now. Will cont. POC & monitor.
[2021-07-23] MEDS: LORazepam 2 MG/ML INJ IV (06:12)
--- NOTE | 2021-07-23 06:59 | PC.NURSE ---
0612 Pt. got restless when I re-assessed him again. Encouraged to take his Lorazepam which he agreed & accepted. 1 mg. Ativan admin. Upon re-assessment his VS was B/P 136/75, HR 93, RR 20 & SPO2 in RA 99-100%. CIWA scale down to 3, will cont. POC & monitor.
--- NOTE | 2021-07-23 08:36 | P.HP_ITS ---
History of Present Illness History of Present Illness Date Patient Seen: 07/23/21 Time Patient Seen: 08:36 Chief complaint: Rapid AFIB Narrative: 76-year-old alcoholic male presents from the ER with atrial fibrillation with RVR. Patient has been noncompliant with medication, is supposed to be taking metoprolol 25 mg p.o. q.day. EMS noted that his heart rate was 150 upon arrival and they did give Cardizem 20 mg x 1 with a reduction to 80. Vital signs in the ED included a temperature of 98.0?, pulse 79, respirations 29, O2 saturation 99% on 2 L and blood pressure 156/103. EKG showed atrial fibrillation with a ventricular rate of 73 beats per minute. Chest x-ray showed no acute changes. Labs remarkable for a blood alcohol level 24. Hemoglobin/hematocrit at baseline. Anemia is macrocytic. Patient reports his last drink was 3 days ago. He was placed on CIWA protocol overnight, uneventful. Patient History Medical History Alcohol abuse Alcohol withdrawal Alcohol withdrawal delirium Anemia, chronic disease Atrial fibrillation BPH w urinary obs/LUTS Cardiomyopathy Former smoker Gout History of adenomatous polyp of colon HTN (hypertension) Mixed hyperlipidemia Surgical History History of percutaneous endoscopic gastrostomy (~2019) Family & Social History Family History Mother Lung cancer Sister Rheumatoid arthritis Social History: household members spouse Prior Living Arrangements House Safety & Behavioral: Feels Safe in Current Yes Environment Been Physically Hurt or No Threatened By a Person Tobacco & Substance use: Tobacco type cigarettes Smoking Status Former smoker alcohol intake current alcohol intake frequency 3 or more drinks per day Substance Use Type does not use Meds Home Medications and Allergies Home Medications Medication Instructions Recorded Confirmed Type metoprolol succinate 25 mg 25 mg PO DAILY #30 tabs 06/08/21 07/23/21 Rx tablet,extended release 24 hr Allergies Allergy/AdvReac Type Severity Reaction Status Date / Time amoxicillin [AMOXICILLIN] Allergy Severe SWOLLEN JAW Verified 07/03/21 20:26 clindamycin [CLINDAMYCIN] AdvReac Severe C-DIFF Verified 07/03/21 20:26 Review of Systems Review of Systems Narrative: All remaining ROS were reviewed and negative except as addressed. Exam Vital Signs (past 8 hours): - 07/23/21 00:44 07/23/21 00:42 07/23/21 00:44 Temperature 98.0 F Pulse Rate 80 79 Respiratory Rate 28 H 29 H Blood Pressure 156/103 H 180/99 H Pulse Oximetry 100 99 Oxygen Delivery Method Room Air Nasal Cannula Oxygen Flow Rate 2 07/23/21 00:44 07/23/21 01:00 07/23/21 01:00 Temperature Pulse Rate 97 H 82 Respiratory Rate 52 H 23 Blood Pressure 154/81 H Pulse Oximetry 98 97 Oxygen Delivery Method Oxygen Flow Rate 07/23/21 01:30 07/23/21 01:30 07/23/21 02:00 Temperature Pulse Rate 69 Respiratory Rate 18 Blood Pressure 141/78 H 132/71 Pulse Oximetry 97 Oxygen Delivery Method Oxygen Flow Rate 07/23/21 02:00 07/23/21 02:30 07/23/21 02:30 Temperature Pulse Rate 83 86 Respiratory Rate 21 25 H Blood Pressure 120/79 Pulse Oximetry 99 Oxygen Delivery Method Oxygen Flow Rate 07/23/21 03:30 07/23/21 06:40 07/23/21 07:58 Temperature 98.0 F 98.2 F Pulse Rate 90 93 H 99 H Respiratory Rate 24 20 16 Blood Pressure 129/78 136/75 155/86 H Pulse Oximetry 99 97 Oxygen Delivery Method Oxygen Flow Rate 0 Oxygen Delivery Method Room Air Oxygen Flow Rate 0 Narrative Exam Narrative: GENERAL: Alert and oriented, appearing stated age and in no acute distress. HEENT: Head normocephalic/atraumatic. Extraocular movements intact. LUNGS: Clear to ausculation bilaterally, no wheezes, rhonchi or rales. CV: Normal S1 and S2 with regular rate and rhythm, no audible murmurs, rubs or gallops. ABDOMEN: Soft, non-tender, non-distended, no organomegaly. Positive bowel sounds. EXTREMITIES: No clubbing, cyanosis, or edema. NEURO: Cranial nerves II through XII grossly intact, no focal deficits. PSYCH: Alert and oriented x 3. SKIN: No concerning lesions. Objective Labs Result Diagrams: 07/23/21 00:45 07/23/21 00:45 Labs: Laboratory Results - last 24 hr 07/23/21 07/23/21 07/23/21 00:45 00:45 00:45 WBC 6.3 RBC 3.77 L Hgb 12.5 L Hct 36.9 L MCV 97.8 MCH 33.1 MCHC 33.8 RDW 16.2 H Plt Count 124 L Neut % (Auto) 77.1 H Lymph % (Auto) 13.9 L [place] % (Auto) 6.6 Eos % (Auto) 1.2 L Baso % (Auto) 1.2 Neut # (Auto) 4800 Lymph # (Auto) 900 L [place] # (Auto) 400 Eos # (Auto) 100 Baso # (Auto) 100 PT 10.7 INR 1.0 APTT 27 D Sodium 138 Potassium 5.0 Chloride 104 Carbon Dioxide 18 L BUN 14 Creatinine 1.08 Estimated GFR > 60 BUN/Creatinine Ratio 13.0 Glucose 83 Calcium 8.8 Total Bilirubin 1.0 AST 48 ALT 29 Alkaline Phosphatase 85 Total Creatine Kinase 84 CK-MB (CK-2) TNP CK-MB (CK-2) Rel Index TNP Troponin I < 0.012 Total Protein 7.2 Albumin 4.3 Globulin 2.9 Albumin/Globulin Ratio 1.5 Urine Color Urine Appearance Urine pH Ur Specific [place] Urine Protein Urine Glucose (UA) Urine Ketones Urine Occult Blood Urine Nitrate Urine Bilirubin Urine Urobilinogen Ur Leukocyte Esterase Urine RBC Urine WBC Ur Squamous Epith Cells Urine Bacteria Urine Mucus Urine Sperm Ur Culture Indicated? U Opiates 300ng/mL cut Ur Oxycodone Screen Urine Methadone Screen Ur Barbiturates Screen U Tricyclic Antidepress Ur Phencyclidine Scrn Ur Amphetamines Screen U Methamphetamines Scrn Ur MDMA Scrn (Ecstasy) U Benzodiazepines Scrn Urine Cocaine Screen U Marijuana (THC) Screen Ethyl Alcohol SARS-CoV-2 (PCR) 07/23/21 07/23/21 07/23/21 00:45 01:50 04:05 WBC RBC Hgb Hct MCV MCH MCHC RDW Plt Count Neut % (Auto) Lymph % (Auto) [place] % (Auto) Eos % (Auto) Baso % (Auto) Neut # (Auto) Lymph # (Auto) [place] # (Auto) Eos # (Auto) Baso # (Auto) PT INR APTT Sodium Potassium Chloride Carbon Dioxide BUN Creatinine Estimated GFR BUN/Creatinine Ratio Glucose Calcium Total Bilirubin AST ALT Alkaline Phosphatase Total Creatine Kinase CK-MB (CK-2) CK-MB (CK-2) Rel Index Troponin I Total Protein Albumin Globulin Albumin/Globulin Ratio Urine Color Urine Appearance Urine pH Ur Specific [place] Urine Protein Urine Glucose (UA) Urine Ketones Urine Occult Blood Urine Nitrate Urine Bilirubin Urine Urobilinogen Ur Leukocyte Esterase Urine RBC Urine WBC Ur Squamous Epith Cells Urine Bacteria Urine Mucus Urine Sperm Ur Culture Indicated? U Opiates 300ng/mL cut Negative Ur Oxycodone Screen Negative Urine Methadone Screen Negative Ur Barbiturates Screen Negative U Tricyclic Antidepress Negative Ur Phencyclidine Scrn Negative Ur Amphetamines Screen Negative U Methamphetamines Scrn Negative Ur MDMA Scrn (Ecstasy) Negative U Benzodiazepines Scrn Negative Urine Cocaine Screen Negative U Marijuana (THC) Screen Negative Ethyl Alcohol 24 H SARS-CoV-2 (PCR) Negative 07/23/21 04:05 WBC RBC Hgb Hct MCV MCH MCHC RDW Plt Count Neut % (Auto) Lymph % (Auto) [place] % (Auto) Eos % (Auto) Baso % (Auto) Neut # (Auto) Lymph # (Auto) [place] # (Auto) Eos # (Auto) Baso # (Auto) PT INR APTT Sodium Potassium Chloride Carbon Dioxide BUN Creatinine Estimated GFR BUN/Creatinine Ratio Glucose Calcium Total Bilirubin AST ALT Alkaline Phosphatase Total Creatine Kinase CK-MB (CK-2) CK-MB (CK-2) Rel Index Troponin I Total Protein Albumin Globulin Albumin/Globulin Ratio Urine Color Yellow Urine Appearance Clear Urine pH 6.5 Ur Specific [place] 1.020 Urine Protein 1+ H Urine Glucose (UA) Negative Urine Ketones Trace H Urine Occult Blood Negative Urine Nitrate Negative Urine Bilirubin Negative Urine Urobilinogen 0.2 Ur Leukocyte Esterase Negative Urine RBC None seen Urine WBC 0-1/hpf Ur Squamous Epith Cells 0-1 /hpf Urine Bacteria None seen Urine Mucus 2+ H Urine Sperm . Ur Culture Indicated? Cult not indicated U Opiates 300ng/mL cut Ur Oxycodone Screen Urine Methadone Screen Ur Barbiturates Screen U Tricyclic Antidepress Ur Phencyclidine Scrn Ur Amphetamines Screen U Methamphetamines Scrn Ur MDMA Scrn (Ecstasy) U Benzodiazepines Scrn Urine Cocaine Screen U Marijuana (THC) Screen Ethyl Alcohol SARS-CoV-2 (PCR) Assessment & Plan Assessment & Plan narrative: 1. Atrial fibrillation with rapid ventricular rate, now with normal rate. Plan: Will restart home metoprolol 25 mg p.o. q.day. Cardiac telemetry. 2. Alcoholism Plan: [facility] protocol. 3. CHF, chronic Plan: Will trend BNPs, lasix as needed. 4. Macrocytic anemia secondary to alcoholism, chronic, stable. Plan: Patient is not interested in cutting down on his drinking. 5. Memory/cognitive changes, secondary to alcoholism, age, and withdrawal seizures Plan: Supportive care. 6. Hypertension, chronic Plan: Home metoprolol. 7. Depression, chronic Plan: Patient has declined antidepressant. He is going through separation from his . Has burned many bridges, most recently during a stay with his daughter from [place]. He went to live with her after a recent inpatient hospitalization but refused to go to AA meetings or counseling and so returned t o [facility] to live alone. His soon-to-be ex- spends most of her time in [place] with their other daughter and grandchildren. is supportive but is moving on with her life. FEN: Heart healthy diet, PO fluids, MV + folate GI: Protonix DVT: SCDs Code: Full COVID: negative Dispo: Anticipate discharge tomorrow if stable. Quality VTE Deep Vein Thrombosis/Pulmonary Embolism Present on Admission: No
[2021-07-23] MEDS: METOPROLOL ER 25 MG TABLET PO (09:24)
[2021-07-23] MEDS: FOLIC ACID 1 MG TABLET PO (09:24)
[2021-07-23] MEDS: THIAMINE 100 MG TABLET PO (09:24)
[2021-07-23] MEDS: MULTIVITAMIN 1 TABLET 1 TAB PO (09:24)
--- NOTE | 2021-07-23 11:56 | PC.NURSE ---
Addendum entered by Melba Reese R.N. 07/23/21 14:21: Patients afternoon CIWA is a 2. Patient does have slight tremors and is perspiring some. Addendum entered by Melba Reese R.N. 07/23/21 14:17: Patient is up in the chair and resting comfortably. He has been appropriate with staff and thus far. He is on the phone at this time. Original Note: Assess- Patient is alert and oriented x2, some confusion. Patients ciwa score a 2. He has been appropriate and kind this shift. No agitation or anxiety noted. He is resting comfortably and eating lunch.
[2021-07-23 13:29] LABS: NT-proBNP (BNP-Adult 18+) 2610 pg/mL (<450)
--- NOTE | 2021-07-23 13:54 | CM.DANOTE ---
Initial DCP Assessment Note Pt is a 76 yo male, resident of [place], arrives via EMS and be treated for Atrial fibrillation with rapid ventricular rate, non-compliant with home med regiment. 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 Since June 2019, patient has been admitted 9 times, 5 ER visits. Met w/patient to introduce role. Patient A+Ox2, very poor historian. Patient says he lives with his , lives 8 miles out of town and does not drive, receives meals on wheels but does not have the appetite to eat these, and has cut down dramatically on his daily drinking. In addition, patient states he is mostly healthy and has taken pretty good care of his body. Patient denies needs from this BILLBOARD MECHANIC, states his drinking is not a problem and he does not require HH services. According to Dr Reyna: Plan: Patient has declined antidepressant. He is going through separation from his . Has burned many bridges, most recently during a stay with his daughter from [place]. He went to live with her after a recent inpatient hospitalization but refused to go to AA meetings or counseling and so returned to [facility] to live alone. His soon-to-be ex- spends most of her time in [place] with their other daughter and grandchildren. is supportive but is moving on with her life. Likely no needs from this BILLBOARD MECHANIC as patient will decline offered services, will remain available in case this changes. JEROME Whaley Discharge Planning/Care Management CM Discharge Assessment Start: 07/23/21 13:34 Freq: Status: Active Protocol: Document 07/23/21 13:35 TUCKER (Rec: 07/23/21 13:54 TUCKER [id number]) Discharge Planning Assessment Assigned [employer] Manager JEROME Wong DPOA/Assigned Designee Name Marya Porter, spouse (lives out of state) Contact Information [phone] Advance Directives? Yes Advance Directives on File No History Provided By Patient,Medical Record Has Patient been admitted in last 30 Yes days? Comment Here 07.03.21-07.05. 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 No Comment See Narrative Comment Home Health if patient agrees, today does not think he needs HH services Barriers to Discharge Yes Comment Patient with ETOH abuse, confusion, medication non- compliance and has burned bridges w/in his family and community, likely d/t chronic heavy alochol use. Patient currently denying needs from this BILLBOARD MECHANIC, patient is not a good historian and lacks insight/awareness... This BILLBOARD MECHANIC cannot ascertain if patient is not being forthcoming, cannot remember details, or is in denial. Potentially all three Discharge Plan Home Transportation Arrangement Patient reports that he may have friend provide him transport if he can get a hold of this person Referrals Initiated Other Additional Comment None accepted If patient plan is home with home health Yes : Has signed face to face form been completed?
[2021-07-23] MEDS: PANTOPRAZOLE 40 MG VIAL IV (14:06)
[2021-07-23] MEDS: CALCIUM CARBONATE 500 MG TAB 1000 MG PO (14:07)
[2021-07-23] MEDS: FUROSEMIDE 20 MG/2 ML VIAL IV (17:59)
[2021-07-23] MEDS: ACETAMINOPHEN 325 MG TABLET 650 MG PO (18:00)
[2021-07-23] MEDS: SODIUM CHLORIDE 0.9% FLUSH 10 ML IV (20:20)
[2021-07-24] VITALS (8 sets, daily range): BP systolic 90–150; BP diastolic 59–104; PULSE 67–116; RESP 16–22; TEMP 36.3–36.7; O2SAT 95–99
[2021-07-24 06:15] LABS: Add Manual Diff / Slide Review NO; Basophils Absolute Auto 0 /uL (0-100); Basophils Percent Auto 0.9 % (0-2); Eosinophils Absolute Auto 100 /uL (0-450); Eosinophils Percent Auto 2.3 % (2-4); Hematocrit 36.9 % (41-53); Hemoglobin 12.5 g/dL (13.5-17.5); Lymphocytes Absolute Auto 1000 /uL (1100-4500); Lymphocytes Percent Auto 18.3 % (25-40); Mean Corpuscular HGB Conc 33.9 % (30-36); Mean Corpuscular Hemoglobin 33.1 PG (26-34); Mean Corpuscular Volume 97.8 fL (80-100); Monocytes Absolute Auto 600 /uL (0-900); Monocytes Percent Auto 11.3 % (3-14); Neutrophils Absolute Auto 3500 /uL (1500-7000); Neutrophils Percent Auto 67.2 % (50-75); Platelet Count 107 X10^3/uL (150-400); Red Blood Cell Count 3.78 X10^6/uL (4.5-5.9); Red Cell Distribution Width 16.4 % (11.6-14.8); White Blood Cell Count 5.2 X10^3/uL (4.5-11.0)
[2021-07-24 06:50] LABS: Alanine Aminotransferase 23 IU/L (<50); Albumin 4.1 g/dL (3.5-5.0); Albumin Globulin Ratio 1.6 (1.0-2.8); Alkaline Phosphatase 67 U/L (38-126); Aspartate Aminotransferase 38 IU/L (17-59); BUN Creatinine Ratio 19.8 (6-22); Bilirubin Total 0.9 mg/dL (0.2-1.3); Blood Urea Nitrogen 20 mg/dL (9-20); Calcium 8.9 mg/dL (8.4-10.2); Carbon Dioxide 23 mmol/L (22-32); Chloride 104 mmol/L (98-107); Estimated Glomerular Filt Rate > 60 mL/min (>60); Globulin 2.5 g/dL (1.7-4.1); Glucose 116 mg/dL (80-110); HEMOLYSIS 20 (0-50); Potassium 4.3 mmol/L (3.4-5.1); Sodium 135 mmol/L (137-145); Total Protein 6.6 g/dL (6.3-8.2)
--- NOTE | 2021-07-24 06:53 | PM.DS.1 ---
History of Present Illness History of Present Illness Date Patient Seen: 07/25/21 Time Patient Seen: 10:57 Chief complaint: Rapid AFIB Narrative: 76-year-old alcoholic male presents from the ER with atrial fibrillation with RVR. Patient has been noncompliant with medication, is supposed to be taking metoprolol 25 mg p.o. q.day. EMS noted that his heart rate was 150 upon arrival and they did give Cardizem 20 mg x 1 with a reduction to 80. Vital signs in the ED included a temperature of 98.0?, pulse 79, respirations 29, O2 saturation 99% on 2 L and blood pressure 156/103. EKG showed atrial fibrillation with a ventricular rate of 73 beats per minute. Chest x-ray showed no acute changes. Labs remarkable for a blood alcohol level 24. Hemoglobin/hematocrit at baseline. Anemia is macrocytic. Patient reports his last drink was 3 days ago. He was placed on CIWA protocol overnight, uneventful. Discharge Providers Provider Date of admission: 07/23/21 02:37 Discharge Date: 07/24/21 Primary care physician: Cris Reyna MD Consults: 07/23/21 12:41 Consult to Discharge Planning Routine Comment: Discharge provider: Cris Reyna MD Summary Hospital Course Discharge Diagnosis: 1. Atrial fibrillation with rapid ventricular rate, now with normal rate.? 2. Alcoholism 3.? CHF, chronic 4. 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 5. Memory/cognitive changes, secondary to alcoholism, age, and withdrawal seizures 6. Hypertension, chronic 7. Depression, chronic Hospital Course: Uneventful. Patient needed coverage with ativan twice during his 2 day stay, CIWA now zero. Last drink was now 5 days ago. Once beta-blockade was resumed, heart rate was mostly controlled with just one outlier and he reports that he is feeling better. BNP was elevated on admission and he was given 10 mg of IV lasix, that will be continued orally as an outpatient and he will need a follow-up BMP as an outpatient to determine need for potassium. He complained of weakness yesterday and EKG showed atrial fibrillation with a ventricular rate of 71 and inferior and aterolateral infacrct of indeterminate age, unchanged from previous. Troponin and CK panel negative. Patient has a history of medication non-compliance and is a high risk for readmission if he chooses not to take his medication. He has also been through multiple chemical dependency programs, both inpatient and outpatient, voluntary and involuntary, in the last 2 years. At this point, he does not want to stop drinking although he reports he has cut back. Patient has a supportive family and access to AA resources, including a sponsor. He understands that he can reach out any time if he desires to proceed with sobriety. He does have meals on wheels and home health has recently been ordered as an outpatient but patient has not heard from them yet. Declined home health resources when taking with discharge planning during this stay. Reviewed mental health resources available to him. On day of discharge, he is afebrile with stable vital signs throughout and no signs of withdrawal Time spent on Discharge and Coordination of post-hospital care: 35 minutes Status at Discharge Cognitive/behavioral status at discharge: at baseline, oriented Functional status at discharge: independent ambulation Overall status at discharge: patient is progressing back to baseline Exam Vital Signs (past 8 hours): - 07/24/21 00:00 07/24/21 04:00 Temperature 98.1 F 97.9 F Pulse Rate 84 92 H Respiratory Rate 22 16 Blood Pressure 126/82 148/78 H Pulse Oximetry 98 98 Oxygen Flow Rate 0 0 Oxygen Delivery Method Room Air Oxygen Flow Rate 0 Narrative Exam Narrative: GENERAL: Alert and oriented, appearing stated age and in no acute distress. HEENT: Head normocephalic/atraumatic. Extraocular movements intact. LUNGS: Clear to ausculation bilaterally, no wheezes, rhonchi or rales. CV: Irregularly irregular, no audible murmurs, rubs or gallops. ABDOMEN: Soft, non-tender, non-distended, no organomegaly. Positive bowel sounds. EXTREMITIES: No clubbing, cyanosis, or edema. NEURO: Cranial nerves II through XII grossly intact, no focal deficits. PSYCH: Alert and oriented x 3. SKIN: No concerning lesions. Objective Labs Result Diagrams: 07/25/21 06:40 07/25/21 06:40 Labs: Laboratory Results - last 24 hr 07/23/21 07/24/21 07/24/21 12:40 06:05 06:05 WBC 5.2 RBC 3.78 L Hgb 12.5 L Hct 36.9 L MCV 97.8 MCH 33.1 MCHC 33.9 RDW 16.4 H Plt Count 107 L Neut % (Auto) 67.2 Lymph % (Auto) 18.3 L Pepin % (Auto) 11.3 Eos % (Auto) 2.3 Baso % (Auto) 0.9 Neut # (Auto) 3500 Lymph # (Auto) 1000 L Pepin # (Auto) 600 Eos # (Auto) 100 Baso # (Auto) 0 Sodium 135 L Potassium 4.3 Chloride 104 Carbon Dioxide 23 BUN 20 Creatinine 1.01 Estimated GFR > 60 BUN/Creatinine Ratio 19.8 Glucose 116 H Calcium 8.9 Total Bilirubin 0.9 AST 38 ALT 23 Alkaline Phosphatase 67 NT-Pro-B Natriuret Pep 2610 H Total Protein 6.6 Albumin 4.1 Globulin 2.5 Albumin/Globulin Ratio 1.6 PFSH Medical History Alcohol abuse Alcohol withdrawal Alcohol withdrawal delirium Anemia, chronic disease Atrial fibrillation BPH w urinary obs/LUTS Cardiomyopathy Former smoker Gout History of adenomatous polyp of colon HTN (hypertension) Mixed hyperlipidemia Surgical History History of percutaneous endoscopic gastrostomy (~2019) Family History Mother Lung cancer Sister Rheumatoid arthritis Social History marital status: household members: none occupational status: previously employed Smoking Status: Former smoker alcohol intake: current substance use type: does not use Discharge Plan Discharge Plan Patient Disposition: Home Provider Discharge Comment: 1. Follow-up with Dr. Ambrose, 1 week 2. Follow-up with Dr. San, as soon as you are able to get an appointment Discharge orders & Medications Prescriptions: New furosemide 20 mg tablet 10 mg PO QAM Qty: 45 1RF Continued metoprolol succinate 25 mg tablet extended release 24 hr 25 mg PO DAILY Qty: 30 0RF Label Comments: Pt reports taking every other day, at best. Also stated only takes 2 pills, since it RX'd. Follow up/Referrals: Lc Ambrose MD [Physician] - Diet/Activity/Treatments Diet: Diet as Tolerated Skin/Wound/Dressing Care Report to your healthcare provider any signs of infection, such as:: chills, fever and increased pain Visit Report/Discharge Packet Instructions: Alcohol and Stress: There are Safer Ways to [place], Delirium Tremens, Alcohol Use Disorder, DI for Heart Failure, DI for Atrial Fibrillation, Drug and Alcohol Withdrawal Discharge Data Primary Care Provider: Cris Reyna VTE Deep Vein Thrombosis/Pulmonary Embolism Present on Admission: No
[2021-07-24 06:57] LABS: NT-proBNP (BNP-Adult 18+) 2510 pg/mL (<450)
[2021-07-24] MEDS: LORazepam 2 MG/ML INJ IV (09:26)
[2021-07-24] MEDS: FOLIC ACID 1 MG TABLET PO (09:27)
[2021-07-24] MEDS: PANTOPRAZOLE 40 MG VIAL IV (09:27)
[2021-07-24] MEDS: MULTIVITAMIN 1 TABLET 1 TAB PO (09:27)
[2021-07-24] MEDS: SODIUM CHLORIDE 0.9% FLUSH 10 ML IV ×2 (09:27→20:54)
[2021-07-24] MEDS: THIAMINE 100 MG TABLET PO (09:27)
[2021-07-24] MEDS: METOPROLOL ER 25 MG TABLET PO (09:27)
--- NOTE | 2021-07-24 10:45 | PC.NURSE ---
Addendum entered by Melba Reese R.N. 07/24/21 15:44: ordered for patient to have 40mg of iv lasix and 2.5mg of iv metoprolol. The iv metoprolol has been given, and blood pressure wnl. Will give the lasix after rechecking patients blood pressure in 30 minutes. Addendum entered by Melba Reese R.N. 07/24/21 11:29: Patients ciwa reevaluated after ativan 1mg iv given, he is now calm and score is a 2. Original Note: Patient anxious, slightly agitated, arms and legs shaking. Denies chest pain, trying to call different people on the phone. Given 1mg of iv ativan and helpful. He is sitting up in his chair and drinking mint tea. He states that he feels better. Patient does have some confusion and only thinks that he is here for his heart. He does not know the last time that he drank, or how much. Patient called his in [place] and she is aware that he is in the hospital.
--- NOTE | 2021-07-24 13:40 | PM.PN.1 ---
Subjective Subjective Date Patient Seen: 07/24/21 Time Patient Seen: 11:30 Interval history: Patient reports a poor night of sleep. Does not sleep well in the hospital. Reports that his appetite is fine he denies any nausea or vomiting. Has been ambulating with a walker but feels weak. Complaining of some chest pressure this morning, no pain, no radiation. No shortness of breath. Can feel his heart fibrillating. Does not feel back to his baseline. Most of the time, I can't feel it, but for the past few days, I can. It is getting better, but it is still there. Exam Vital Signs (past 8 hours): - 07/24/21 08:00 07/24/21 09:46 07/24/21 12:00 Temperature 97.4 F L 97.7 F Pulse Rate 95 H 95 H 116 H Respiratory Rate 18 18 18 Blood Pressure 150/104 H 129/72 Pulse Oximetry 98 99 Oxygen Flow Rate 0 0 Oxygen Delivery Method Room Air Oxygen Flow Rate 0 Narrative Exam Narrative: GENERAL: Alert and oriented, appearing stated age and in no acute distress. HEENT: Head normocephalic/atraumatic. Extraocular movements intact. LUNGS: Clear to ausculation bilaterally, no wheezes, rhonchi or rales. CV: Irregularly irregular, no audible murmurs, rubs or gallops. ABDOMEN: Soft, non-tender, non-distended, no organomegaly. Positive bowel sounds. EXTREMITIES: No clubbing, cyanosis, or edema. NEURO: Cranial nerves II through XII grossly intact, no focal deficits. PSYCH: Alert and oriented x 3. SKIN: No concerning lesions. Objective Labs Result Diagrams: 07/24/21 06:05 07/24/21 06:05 Labs: Laboratory Results - last 24 hr 07/24/21 07/24/21 07/24/21 06:05 06:05 06:05 WBC 5.2 RBC 3.78 L Hgb 12.5 L Hct 36.9 L MCV 97.8 MCH 33.1 MCHC 33.9 RDW 16.4 H Plt Count 107 L Neut % (Auto) 67.2 Lymph % (Auto) 18.3 L [place] % (Auto) 11.3 Eos % (Auto) 2.3 Baso % (Auto) 0.9 Neut # (Auto) 3500 Lymph # (Auto) 1000 L [place] # (Auto) 600 Eos # (Auto) 100 Baso # (Auto) 0 Sodium 135 L Potassium 4.3 Chloride 104 Carbon Dioxide 23 BUN 20 Creatinine 1.01 Estimated GFR > 60 BUN/Creatinine Ratio 19.8 Glucose 116 H Calcium 8.9 Total Bilirubin 0.9 AST 38 ALT 23 Alkaline Phosphatase 67 NT-Pro-B Natriuret Pep 2510 H Total Protein 6.6 Albumin 4.1 Globulin 2.5 Albumin/Globulin Ratio 1.6 PFSH Medical History Alcohol abuse Alcohol withdrawal Alcohol withdrawal delirium Anemia, chronic disease Atrial fibrillation BPH w urinary obs/LUTS Cardiomyopathy Former smoker Gout History of adenomatous polyp of colon HTN (hypertension) Mixed hyperlipidemia Surgical History History of percutaneous endoscopic gastrostomy (~2019) Family History Mother Lung cancer Sister Rheumatoid arthritis Social History marital status: household members: none occupational status: previously employed Smoking Status: Former smoker alcohol intake: current substance use type: does not use Assessment & Plan Assessment & Plan narrative: 1. Atrial fibrillation with rapid ventricular rate, labile, now high again. Plan:? Will give metoprolol 2.5 mg IV x 1 now. Continue home metoprolol 25 mg p.o. q.day. Cardiac telemetry.?Patient has not been a candidate for cardioversion in the past secondary to alcoholism and fall risk. He has also been lost to follow-up with Dr. San (2018) but was advised to reconnect with him at last office visit on 07/07/21. He has not yet made appointment. Will work on care coordination with Dr. San once offices open again on Monday. 2. Alcoholism Plan: Continue CIWA protocol. Likely outside of the window of withdrawal at this point. Will add long-acting clonezapam 0.5 mg PO BID, prn for agitation and insomnia. This will likely help the atrial fibrillation as well. 3.? HFpEF, acute on chronic -Echo on 11/13/20 revealed EF of 55% -BNP 2610-->2510 Plan: Possibly contributing to worsening heart rate and atrial fibrillation. Will decrease pre-load with lasix 40 mg IV x 1 now. Continue to trend BNPs and watch BP closely, may need a small fluid bolus if pressure drops but hopeful that the reduced pre-load will positively affect the rate and fibrillating heart. 4. Weakness and fall risk, acute on chronic Plan: PT. 5. Macrocytic anemia secondary to alcoholism, chronic, stable.? Plan:? Patient is not interested in cutting down on his drinking.?Continue MV and folate. 6. Memory/cognitive changes, secondary to alcoholism, age, and withdrawal seizures Plan:? Supportive care.? 7. Hypertension, chronic Plan:? Please see #1 and 3. 8. Depression, chronic Plan:? Patient has declined antidepressant.? Will continue to work on this as an outpatient. Reviewed code status today, patient clearly has a will to live and wants to be a full code. Hopeful that he may be interested in help in the future. FEN:? Heart healthy diet, PO fluids, MV + folate GI:? Protonix DVT:? SCDs Code:? Full COVID:? negative Dispo:? Anticipate discharge tomorrow with home health if stable. Will need a ride home, have discussed taxi with discharge planning. Left message on Marya's phone. Time Spent With Patient Critical Care time: Greater than 35 minutes total time was spent on day of service, evaluating the patient on the floor, including examining the patient, discussing clinical course with clinical and nursing staff, reviewing clinical course in the computer, preparing documentation and writing orders for continued management of care, discussing status with family as appropriate, reviewing plans for the next 24 hours with both patient/family and nursing staff as appropriate. Quality VTE Deep Vein Thrombosis/Pulmonary Embolism Present on Admission: No
[2021-07-24 14:19] LABS: Creatine Kinase 60 U/L (55-170)
[2021-07-24 14:32] LABS: Troponin I < 0.012 ng/mL (0.01-0.034)
[2021-07-24] MEDS: METOPROLOL TARTRATE 5 MG/5 ML INJ 2.5 MG IV (15:26)
[2021-07-24] MEDS: FUROSEMIDE 40 MG/4 ML VIAL IV (16:15)
--- NOTE | 2021-07-24 23:42 | PC.NURSE ---
Pt is A/Ox3, walked hallway with BREW HOUSE SUPERVISOR at begging of this shift, denied any sensory changes, discomfort, was notified by BREW HOUSE SUPERVISOR Pt's SBP was low, instructed to move pt from up in chair and
--- NOTE | 2021-07-24 23:46 | PC.NURSE ---
Pt is A/Ox3, CIWA was <8, walked hallway with CROSS TIE CUTTER at begging of this shift, denied any sensory changes, discomfort. Was notified by CROSS TIE CUTTER Pt's BP was 90/69, instructed to move pt from up in chair to bed with his legs elevated since this RN was not able to leave middle of care for other patient. Recheck again his BP was back to 122/79, HR was 60's with monitor/auscultation. Pt denied any dizziness, insisted this RN to let him stand up by himself. Explained pt was at fall risk needs to be careful and to use his FWW when ambulates with staff assist. This RN would like to check his orthostatic blood pressure before standing up, pt refused to check his BP before him getting out of bed, complained, Because you gave me the medication, my blood pressure is low now. Explained him the reasons why he received Lasix and Metoprolol this afternoon(previous shift) a couple of times along with his lab result, BP and HR, Pt still did not agree with the medication regimen. Pt agreed to stay in bed until CROSS TIE CUTTER was ready to support him to ambulate again. Later heard bed alarm went off, Pt was at edge of the bed trying to get out bed independently, stated he was getting out of bed, needed to stand up now. This RN asked him where he would go, pt calmed down and remembered that he was in hospital, stated, I was sleeping, I was just confused, I am ok now. Pt still refused to let me check his BP before standing up, insisted to get OOB and do his oral care at sink, assisted him to go to BR, gait was steady. No any changes was notified. Upon flushing his IV site, pt kept telling this RN, I do not want any medication. Explained this saline flush was for maintaining IV access, it needs to be flush at least every shift. Resisted to flush one port that was used earlier, She used this. It was working. You do not need to do it again, but agreed to flush both IV access after explained protocol. Pt has been refusing any of medication including sleep aids that was ordered today since pt c/o unable to sleep last nigh. So far, pt has been A/Ox3, refusing medication, since his CIWA is still <8, VS is stable, able to follow direction, no distress noted, will continue to monitor.
[2021-07-25] VITALS: BP 117/84; PULSE 74; RESP 20; TEMP 36.3; O2SAT 94
[2021-07-25 04:00] VITALS: BP 142/97; PULSE 78; RESP 16; TEMP 36.3; O2SAT 96
[2021-07-25 06:54] LABS: Add Manual Diff / Slide Review NO; Basophils Absolute Auto 0 /uL (0-100); Basophils Percent Auto 0.9 % (0-2); Eosinophils Absolute Auto 200 /uL (0-450); Eosinophils Percent Auto 4.4 % (2-4); Hematocrit 36.1 % (41-53); Hemoglobin 12.2 g/dL (13.5-17.5); Lymphocytes Absolute Auto 900 /uL (1100-4500); Lymphocytes Percent Auto 17.1 % (25-40); Mean Corpuscular HGB Conc 33.8 % (30-36); Mean Corpuscular Hemoglobin 33.4 PG (26-34); Mean Corpuscular Volume 98.7 fL (80-100); Monocytes Absolute Auto 700 /uL (0-900); Neutrophils Absolute Auto 3300 /uL (1500-7000); Neutrophils Percent Auto 63.6 % (50-75); Platelet Count 118 X10^3/uL (150-400); Red Blood Cell Count 3.65 X10^6/uL (4.5-5.9); Red Cell Distribution Width 16.4 % (11.6-14.8); White Blood Cell Count 5.2 X10^3/uL (4.5-11.0)
[2021-07-25 07:31] LABS: Alanine Aminotransferase 20 IU/L (<50); Albumin 3.9 g/dL (3.5-5.0); Albumin Globulin Ratio 1.5 (1.0-2.8); Alkaline Phosphatase 63 U/L (38-126); Aspartate Aminotransferase 33 IU/L (17-59); BUN Creatinine Ratio 22.7 (6-22); Bilirubin Total 0.6 mg/dL (0.2-1.3); Blood Urea Nitrogen 22 mg/dL (9-20); Calcium 8.9 mg/dL (8.4-10.2); Carbon Dioxide 25 mmol/L (22-32); Chloride 101 mmol/L (98-107); Estimated Glomerular Filt Rate > 60 mL/min (>60); Globulin 2.6 g/dL (1.7-4.1); Glucose 99 mg/dL (80-110); HEMOLYSIS < 15 (0-50); Sodium 132 mmol/L (137-145); Total Protein 6.5 g/dL (6.3-8.2)
[2021-07-25 07:38] LABS: NT-proBNP (BNP-Adult 18+) 1820 pg/mL (<450)
[2021-07-25 08:00] VITALS: BP 117/79; PULSE 85; RESP 19; TEMP 35.7; O2SAT 98
[2021-07-25] MEDS: METOPROLOL ER 25 MG TABLET PO (09:57)
[2021-07-25] MEDS: FOLIC ACID 1 MG TABLET PO (09:57)
[2021-07-25] MEDS: THIAMINE 100 MG TABLET PO (09:58)
[2021-07-25] MEDS: MULTIVITAMIN 1 TABLET 1 TAB PO (10:01)
--- NOTE | 2021-07-25 10:54 | PT.IIE ---
Current Diagnoses Unspecified atrial fibrillation (07/23/21) Surgical History (Last Reviewed 07/23/21 @ 00:42 by Bg Miramontes MD) History of percutaneous endoscopic gastrostomy (~2019) Medical History (Last Reviewed 07/23/21 @ 00:42 by Bg Miramontes MD) Alcohol abuse Alcohol withdrawal Alcohol withdrawal delirium Anemia, chronic disease Atrial fibrillation BPH w urinary obs/LUTS Cardiomyopathy Former smoker Gout History of adenomatous polyp of colon HTN (hypertension) Mixed hyperlipidemia Physical Therapy Inpatient Evaluation/Re-Eval M1 PT/OT-IP Prior Functional Status Start: 07/25/21 09:07 Freq: NEEDED Status: Active Protocol: Document 07/25/21 10:54 AW (Rec: 07/25/21 11:16 AW [id number]) Medical Review Prior Functional Status Medical History Reviewed Yes Communication Pt is tearful at this encounter. He is able to make his needs known. Mobility and Gait Indpendent without AD. Pt states he likes to walk 2-4 miles at a time every other day. Activities of Daily Living and IADL's Independent Social History Household Members spouse,none Living Arrangements House Number of Floors (Floors) Two Floors Number of Stairs To Enter/Railing? 3 steps with wide B rails at entrance. 14 steps with R rail ascending to bedroom level. Pt states he can stay main level if needed. 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 His is frequently away, assisting their daughter in [place] with her small children. He will discharge to home alone. His drivers license is suspended and pt is concerned about getting food into the house. He is unable to identify any other sources of social support. M2 PT-IP Current Condition Start: 07/25/21 09:07 Freq: NEEDED Status: Active Protocol: Document 07/25/21 10:54 AW (Rec: 07/25/21 11:16 AW [id number]) Physical Therapy Current Condition Current Condition Evaluation Date 07/25/21 Treatment Diagnosis a fib, HRpEF; difficulty in walking Onset Date 07/23/21 M3 PT-IP Subjective Start: 07/25/21 09:07 Freq: NEEDED Status: Active Protocol: Document 07/25/21 10:54 AW (Rec: 07/25/21 11:16 AW [id number]) Subjective Physical Therapy Visit Type Type Initial Evaluation Visit Start Time 10:39 Visit Stop Time 10:54 Total Visit Minutes 15 Physical Therapy Visit Comments Patient Comments I can't do anything by myself . Therapy Pain Assessment Pain When Pain Assessed During Mobility Pain Present Pain Present Denied Pain M4 PT-IP Mobility and Gait Start: 07/25/21 09:07 Freq: NEEDED Status: Active Protocol: Document 07/25/21 10:54 AW (Rec: 07/25/21 11:32 AW [id number]) PT-Transfer Assessment Sit to and From Stand Sit to and from Stand Standby Assistance,Use of Upper Extremities Equipment Transfer Assistive Device None,Gait Belt,Front Wheeled Walker Orthotic/Prosthetic Devices or Brace: No Transfers Transfer Destination Chair Transfer Technique ambulated with and without FWW Transfer Ability Level of Assist Standby Assistance Comments Mobility Comments Pt just finished shower with POST COMMANDER and was sitting up on the chair as PT arrived. BP 117/79 HR 80. Pt stood and walked without AD SBA but with evidence of instability, reaching for mccrary and objects . He sat on the chair and agreed to walk again with FWW. He stood SBA and used FWW to ambulate 180 feet SBA. Gait speed was adequate and steps were consistent. Pt completed stair assessment (see below) and returned to the room with FWW SBA. He returned to the chair where he was left with call light in reach. Gait Assessment Gait Gait Assistance Required: Standby Assistance Distance (Feet) 180 Assistive Devices Assistive Device None,Gait Belt,Front Wheeled Walker Orthotic/Prosthetic Devices or Brace: No Gait Deviations General Gait Pattern Decreased Stride Length, Decreased Feet Clearance Factors Limiting Gait Function Factors Limiting Gait Function Decreased Activity Tolerance, Poor Safety Awareness Comments Gait Comments See mobility comments for details. Stair Climbing Assessment Evaluation Level of Assist On Stairs Standby Assistance Devices Stair Climbing Assistive Devices Right Railing Technique/Endurance Stair Climbing Direction Ascend and Descend Stair Climbing Technique Step Over Step Number of Steps Climbed 3 Query Text: Stair Climbing Set # Repetitions (reps) 1 PT-Balance Assessment Sitting Balance and Reactions Static Sitting Balance Ability Good Dynamic Sitting Balance Ability Good Standing Balance and Reactions Static Standing Balance Ability Good Dynamic Standing Balance Ability Good Device Used FWW; standing balance fair without AD M5 PT-IP Objective Assessments Start: 07/25/21 09:07 Freq: NEEDED Status: Active Protocol: Document 07/25/21 10:54 AW (Rec: 07/25/21 11:32 AW [id number]) Orientation Orientation/Cognition Level of Alertness Alert Orientation Name,Day of Week,Place, Situation Language Function Ability No Deficits Noted Safety Awareness Decreased Safety Awareness Gross Range of Motion Lower Extremity ROM Assessment Within Functional Limits Strength Lower Extremity Strength Assessment Within Functional Limits Hip 4-/5 Knee 4/5 ext; 4-/5 flex Ankle 4+/5 DF Sensation Assessment Sensation Gross Sensation WNL Muscle Tone Muscle Tone WNL Yes M6 PT-IP Treatment Start: 07/25/21 09:07 Freq: NEEDED Status: Active Protocol: Document 07/25/21 10:54 AW (Rec: 07/25/21 11:32 AW [id number]) Physical Therapy Treatment Education Education Provided Safety M7 PT-IP Assessment and Plan Start: 07/25/21 09:07 Freq: NEEDED Status: Active Protocol: Document 07/25/21 10:54 AW (Rec: 07/25/21 11:32 AW [id number]) PT Summary Assessment and Plan Potential Rehabilitation Potential Good Status of Condition at Evaluation Evolving Summary Impairments Strength,Balance,Gait,Activity Tolerance Assessment Summary 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 He is independent at baseline but had at least one recent fall. He has no assist at home as his is currently out of state assisting their daughter with her young family . Pt required SBA with all mobility using FWW. Without AD , pt had increased unsteadiness but no overt LOB. He was able to manage stairs SBA with unilateral rail. Pt is safe to discharge home with assist but pt denies available assist. Home health therapies are recommended to improve strength and mobility independence. Goals Bed Mobility Goal Independent Transfer Goal Independent Gait Goal Independent Gait Distance 300 Other Goals - up/down 14 steps with R rail ascending mod I Frequency of Treatment Frequency Of Treatment Once a Day Treatment Plan Physical Therapy Treatment Plan Bed Mobility Training,Transfer Training,Gait Training, Therapeutic Exercise,Balance Retraining,Discharge Planning Precautions Other Precautions falls Recommendations To Nursing Amount of Assist Needed Standby Assistance,1 Person Assist Discharge Recommendations PT Discharge Recommendations Home with Assistance,Home Health Transportation Needs at Discharge Private Vehicle
--- NOTE | 2021-07-26 11:12 | CM.DPC ---
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 Met with patient re: d/c plan and home health. Per Dr. Reyna she would like patient to have HH. Patient apprehensive but agreeable. Patient has no preference in HH agencies therefore, placed call to Ros[facility] (agency assigned for week). Rosy accepts referral and requests information be faxed to [phone]. All requested clinical with f2f and orders faxed. Confirmation of fax received. Patient provided with brochure for agency. Patient reports that he does have ride home. P: Home on 07-25-21 with [facility]. LUZ
== END 2021-07-25 13:15 | disposition home health service (06) | DRG 308 ==
LOC: ED 02:11 → AC 02:38
PROVIDERS: Admitting Provider Family Medicine; Emergency Provider Emergency Medicine; PCP Student in an Organized Health Care Education/Training Program; Referring Provider Emergency Medicine; Visit Provider Family Medicine
DX: I48.91 Unspecified atrial fibrillation (principal); I50.33 Acute on chronic diastolic (congestive) heart failure; F10.288 Alcohol dependence with other alcohol-induced disorder; R41.3 Other amnesia; I11.0 Hypertensive heart disease with heart failure; Y90.1 Blood alcohol level of 20-39 mg/100 ml; Z91.14 Patient's other noncompliance with medication regimen; Z20.822 Contact with and (suspected) exposure to COVID-19; Z87.891 Personal history of nicotine dependence
CPT/HCPCS: 36415; 71045; 80053; 80305; 80320; 81001; 82550; 82962; 83880; 84484; 85025; 85610; 85730; 87635; 93005; 93010; 94762; 97162; 99284; C9803; C9113; J1940; J2060

== ENCOUNTER 2021-08-03 15:53 | Emergency (ER) | payer MEDICARE, OTHER, SELFPAY ==
[2019-07-03 21:02] VITALS: PULSE 98; RESP 16; O2SAT 98
[2021-07-23 03:14] VITALS: BMI 24.3
[2021-08-03] VITALS (16 sets, daily range): BP systolic 101–147; BP diastolic 58–94; PULSE 81–101; RESP 13–30; TEMP 37.1; O2SAT 91–100; BMI 24.3
--- NOTE | 2021-08-03 16:15 | DI.RAD.S_ITS ---
PROCEDURE: XR CHEST 1V INDICATIONS: chest pain TECHNIQUE: One view of the chest was acquired. COMPARISON: [facility], [facility], XR CHEST 1V, 07/23/2021, 0:41. FINDINGS: Surgical changes and devices: None. Lungs and pleura: Atelectatic changes in the retrocardiac left lower lung. Otherwise normally aerated lungs. No effusion or pneumothorax. Mediastinum: Mediastinal contours appear normal. Heart size is normal. Bones and chest wall: Remote, healed right rib fractures. Osseous structures and overlying soft tissues are otherwise normal. IMPRESSION: 1. Left lower lung atelectatic change. Underlying pneumonia cannot be excluded. 2. Remote right rib trauma. Dictated by: Nani Jimenez M.D. on 08/03/2021 at 16:53 Approved by: Nani Jimenez M.D. on 08/03/2021 at 16:55
--- NOTE | 2021-08-03 16:17 | ED_ITS ---
HPI - Arrhythmia/Palpitations <Glenn Wright PA-C - Last Filed: 08/03/21 18:05> General Chief Complaint: Arrhythmia/Palpitations Stated Complaint: Anxiety Time Seen by Provider: 08/03/21 16:07 Source: patient and EMS Mode of arrival: EMS History of Present Illness HPI narrative: Patient is a 76-year-old male who presents to the ED complaining of some chest pressure and shortness of breath with some ongoing concerns about the inability to care for himself today. He states that when he woke up today he started h aving generalized fatigue and some chest pressure with some ongoing shortness of breath. His is out of state caring for a grandchild and he is home alone caring for himself. He reports today I a.m. unable to adequately care for myself. Patient also states that he did fall today and had be off the ground. Patient denies any loss of consciousness headache vision changes nausea vomiting diarrhea. No reported fever cough. He is complaining of some chest pressure of which he rates it at a 6/10. He describes it as just a pressure and no pain sensation. Patient was emotional while speaking did have some crying episodes. Patient was not able to explain the emotional distress. Patient reports a history of atrial fibrillation. Related Data Previous Rx's Medication Instructions Recorded metoprolol succinate 25 mg 25 mg PO DAILY #30 tabs 06/08/21 tablet,extended release 24 hr furosemide 20 mg tablet 10 mg PO QAM #45 tabs 07/24/21 Allergies Allergy/AdvReac Type Severity Reaction Status Date / Time amoxicillin [AMOXICILLIN] Allergy Severe SWOLLEN JAW Verified 07/03/21 20:26 clindamycin [CLINDAMYCIN] AdvReac Severe C-DIFF Verified 07/03/21 20:26 Review of Systems <Glenn Wright PA-C - Last Filed: 08/03/21 18:05> Review of Systems ROS Unobtainable: All systems reviewed & are unremarkable except as noted in HPI and below Constitutional Constitutional: Denies chills, Denies fatigue, Denies fever(s), Denies frequent falls, Denies lethargy and Denies weakness Eyes Eyes: Denies change in vision, Denies eye discharge, Denies irritation and Denies loss of vision ENT Ears, Nose, Mouth, and Throat: Denies change in voice, Denies dizziness, Denies neck pain, Denies sore throat and Denies throat swelling Cardiovascular Cardiovascular: Reports chest pain, Denies irregular heart rhythm, Denies lightheadedness, Denies palpitations, Reports dyspnea, Denies dyspnea on exertion and Denies orthopnea Respiratory Respiratory: Denies cough, Reports dyspnea, Denies dyspnea on exertion and Denies wheezing Gastrointestinal Gastrointestinal: Denies abdominal pain, Denies change in bowel habits, Denies diarrhea, Denies nausea and Denies vomiting Genitourinary Genitourinary: Denies hematuria, Denies flank pain, Denies urinary incontinence and Denies urinary urgency Musculoskeletal Musculoskeletal: Denies back pain, Denies muscle weakness, Denies neck pain, Denies numbness and Denies tingling Integumentary/Breasts Skin/Breast: Denies pruritus, Denies erythema, Denies rash and Denies wounds Neurologic Neurologic: Denies behavioral changes, Denies confusion, Denies dizziness, Denies frequent falls, Denies loss of vision, Denies numbness, Denies tingling and Denies weakness Psychiatric Psychiatric: Denies anxiety, Denies behavioral changes, Denies confusion, Denies depression, Denies homicidal ideation and Denies suicidal ideation Endocrine Endocrine: Denies fatigue, Denies flushing and Denies palpitations Hematologic/Lymphatic Hematologic/Lymphatic: Denies easy bruising Allergic/Immunologic Allergic/Immunologic: Denies urticaria, Denies throat swelling and Denies whe ezing Patient History <Glenn Wright PA-C - Last Filed: 08/03/21 18:05> Medical History Alcohol abuse Alcohol withdrawal Alcohol withdrawal delirium Anemia, chronic disease Atrial fibrillation BPH w urinary obs/LUTS Cardiomyopathy Former smoker Gout History of adenomatous polyp of colon HTN (hypertension) Mixed hyperlipidemia Surgical History History of percutaneous endoscopic gastrostomy (~2019) Family History Mother Lung cancer Sister Rheumatoid arthritis Social History marital status: household members: none occupational status: previously employed Smoking Status: Former smoker alcohol intake: current substance use type: does not use Smoking Status: Former smoker alcohol intake frequency: 3 or more drinks per day Alcohol type: beer, wine and hard liquor Substance Use Type: does not use Exam <Glenn Wright PA-C - Last Filed: 08/03/21 18:05> Initial Vital Signs Initial Vital Signs: Vital Signs Temperature 98.7 F 08/03/21 16:01 Pulse Rate 94 H 08/03/21 16:01 Respiratory Rate 28 H 08/03/21 16:01 Blood Pressure 147/94 H 08/03/21 16:01 Pulse Oximetry 100 08/03/21 16:01 Oxygen Delivery Method 08/03/21 16:01 Const General: cooperative, in distress and anxious Nutritional Appearance: average body habitus HENMT Head: normal to inspection, normocephalic and atraumatic Ears: hearing grossly normal bilaterally and external ears normal Nose: external nose normal and nares normal Face and sinus: normal facial exam and sinuses nontender Mouth: oral mucosae normal and lip normal Teeth and gingiva: dentition normal and gingiva normal Throat: posterior oropharynx normal Eyes General: Yes appearance normal, both eyes and all related structures Pupils: PERRL Resp Effort & Inspection: respiratory distress Auscultation: clear to auscultation bilaterally Cardio Palpation: normal PMI Rate: tachycardic Rhythm: abnormal rhythm irregularly irregular GI Inspection: normal to inspection Palpation: soft and no hepatosplenomegaly Percussion: normal to percussion Psych Appearance: grossly normal Mood: anxious mood Affect: sad and anxious affect Attitude: cooperative Thought Process: normal Thought Content: normal Judgment: fair <Dawn Paez DO - Last Filed: 08/09/21 18:46> Initial Vital Signs Initial Vital Signs: Vital Signs Temperature 98.7 F 08/03/21 16:01 Pulse Rate 94 H 08/03/21 16:01 Respiratory Rate 28 H 08/03/21 16:01 Blood Pressure 147/94 H 08/03/21 16:01 Pulse Oximetry 100 08/03/21 16:01 Oxygen Delivery Method 08/03/21 16:01 <Lc Bingham MD - Last Filed: 08/04/21 13:59> Initial Vital Signs Initial Vital Signs: Vital Signs Temperature 98.7 F 08/03/21 16:01 Pulse Rate 94 H 08/03/21 16:01 Respiratory Rate 28 H 08/03/21 16:01 Blood Pressure 147/94 H 08/03/21 16:01 Pulse Oximetry 100 08/03/21 16:01 Oxygen Delivery Method 08/03/21 16:01 Course <Glenn Wright PA-C - Last Filed: 08/03/21 18:05> Orders Ordered: Discontinued Medications Sodium Chloride (Normal Saline 0.9%) 1,000 mls @ 1,000 mls/hr IV BOLUS ONE Stop: 08/03/21 19:00 Last Infusion: 08/04/21 00:00 Dose: 0 mls/hr Documented By: Admin: 08/03/21 18:20 Dose: 1,000 mls/hr Documented By: NICOLAS Lorazepam (Lorazepam 2 Mg/Ml Inj) 0.5 mg IV NOW ONE Stop: 08/03/21 16:18 Last Admin: 08/03/21 16:35 Dose: 0.5 mg Documented By: KADE Lorazepam (Lorazepam 2 Mg/Ml Inj) 2 mg IV NOW ONE Stop: 08/04/21 00:35 Last Admin: 08/04/21 00:40 Dose: 2 mg Documented By: IGNACIO Vital Signs Vital signs: Vital Signs - 8 hr 08/04/21 06:00 08/04/21 06:30 08/04/21 07:00 Pulse Rate 74 77 78 Respiratory Rate 17 15 14 Blood Pressure Pulse Oximetry 96 97 08/04/21 07:30 08/04/21 08:00 08/04/21 08:30 Pulse Rate 75 78 79 Respiratory Rate 12 12 15 Blood Pressure Pulse Oximetry 08/04/21 08:59 08/04/21 08:59 08/04/21 09:00 Pulse Rate 85 Respiratory Rate 18 Blood Pressure 106/78 115/78 Pulse Oximetry 08/04/21 09:00 08/04/21 09:30 08/04/21 09:30 Pulse Rate 86 81 Respiratory Rate 19 13 Blood Pressure 101/66 Pulse Oximetry 08/04/21 10:00 08/04/21 10:01 08/04/21 10:01 Pulse Rate 76 74 Respiratory Rate 17 15 Blood Pressure 107/73 Pulse Oximetry 08/04/21 10:30 08/04/21 10:30 08/04/21 11:00 Pulse Rate 77 Respiratory Rate 16 Blood Pressure 111/80 118/76 Pulse Oximetry 08/04/21 11:00 08/04/21 11:30 08/04/21 11:30 Pulse Rate 80 79 Respiratory Rate 16 12 Blood Pressure 133/83 Pulse Oximetry 08/04/21 12:00 08/04/21 12:00 08/04/21 12:30 Pulse Rate 86 Respiratory Rate 15 Blood Pressure 143/82 H 143/83 H Pulse Oximetry 08/04/21 12:30 08/04/21 13:20 08/04/21 13:00 Pulse Rate 88 Respiratory Rate 19 24 Blood Pressure 161/88 H Pulse Oximetry 96 08/04/21 13:00 Pulse Rate 92 H Respiratory Rate 26 H Blood Pressure Pulse Oximetry <Dawn Paez, - Last Filed: 08/09/21 18:46> Orders Ordered: Discontinued Medications Sodium Chloride (Normal Saline 0.9%) 1,000 mls @ 1,000 mls/hr IV BOLUS ONE Stop: 08/03/21 19:00 Last Infusion: 08/04/21 00:00 Dose: 0 mls/hr Documented By: Admin: 08/03/21 18:20 Dose: 1,000 mls/hr Documented By: NICOLAS Lorazepam (Lorazepam 2 Mg/Ml Inj) 0.5 mg IV NOW ONE Stop: 08/03/21 16:18 Last Admin: 08/03/21 16:35 Dose: 0.5 mg Documented By: KADE Lorazepam (Lorazepam 2 Mg/Ml Inj) 2 mg IV NOW ONE Stop: 08/04/21 00:35 Last Admin: 08/04/21 00:40 Dose: 2 mg Documented By: IGNACIO Vital Signs Vital signs: Vital Signs - 8 hr 08/04/21 06:00 08/04/21 06:30 08/04/21 07:00 Pulse Rate 74 77 78 Respiratory Rate 17 15 14 Blood Pressure Pulse Oximetry 96 97 08/04/21 07:30 08/04/21 08:00 08/04/21 08:30 Pulse Rate 75 78 79 Respiratory Rate 12 12 15 Blood Pressure Pulse Oximetry 08/04/21 08:59 08/04/21 08:59 08/04/21 09:00 Pulse Rate 85 Respiratory Rate 18 Blood Pressure 106/78 115/78 Pulse Oximetry 08/04/21 09:00 08/04/21 09:30 08/04/21 09:30 Pulse Rate 86 81 Respiratory Rate 19 13 Blood Pressure 101/66 Pulse Oximetry 08/04/21 10:00 08/04/21 10:01 08/04/21 10:01 Pulse Rate 76 74 Respiratory Rate 17 15 Blood Pressure 107/73 Pulse Oximetry 08/04/21 10:30 08/04/21 10:30 08/04/21 11:00 Pulse Rate 77 Respiratory Rate 16 Blood Pressure 111/80 118/76 Pulse Oximetry 08/04/21 11:00 08/04/21 11:30 08/04/21 11:30 Pulse Rate 80 79 Respiratory Rate 16 12 Blood Pressure 133/83 Pulse Oximetry 08/04/21 12:00 08/04/21 12:00 08/04/21 12:30 Pulse Rate 86 Respiratory Rate 15 Blood Pressure 143/82 H 143/83 H Pulse Oximetry 08/04/21 12:30 08/04/21 13:20 08/04/21 13:00 Pulse Rate 88 Respiratory Rate 19 24 Blood Pressure 161/88 H Pulse Oximetry 96 08/04/21 13:00 Pulse Rate 92 H Respiratory Rate 26 H Blood Pressure Pulse Oximetry <Lc Bingham MD - Last Filed: 08/04/21 13:59> Course Course Narrative: Care was assumed from Dr. Paez at 7:00 a.m., change of shift. Hospital Social Work is assisting. The patient had a fall, he initally had no recall to the event. Alcohol was assumed. He has now orient x3, his last drink was 3 days ago. Although he will have several drinks, at times he goes days without a drink. He has no history of withdrawal. He has no tremor now. His recall to the fall is not clear, but he now remembers going down and could not get up on his own. He informs me his is currently in [place] with their daughter, and 2 grandkids. Their daughter is a professor and currently teaching. He describes his as been there to help. He does not know when she will return, but per our discussion he assumes she will be returning. He ambulated in the ER without assistance. He did well. CONDUIT INSTALLER has previously identified him as having cognitive deficits. He is currently clear. He knows there is food at home, he currently has no alcohol. He indicates there is no problem being at home without alcohol. He has food. He has assistance of home health. He gets deliveries from [facility] [facility]. He would like to go home. He feels he is safe at home and no threat to himself. His situation was again reviewed with CONDUIT INSTALLER. He will be discharged home.Leigha PALMER. 08/04/21@2650. Orders Ordered: Discontinued Medications Sodium Chloride (Normal Saline 0.9%) 1,000 mls @ 1,000 mls/hr IV BOLUS ONE Stop: 08/03/21 19:00 Last Infusion: 08/04/21 00:00 Dose: 0 mls/hr Documented By: Admin: 08/03/21 18:20 Dose: 1,000 mls/hr Documented By: NICOLAS Lorazepam (Lorazepam 2 Mg/Ml Inj) 0.5 mg IV NOW ONE Stop: 08/03/21 16:18 Last Admin: 08/03/21 16:35 Dose: 0.5 mg Documented By: KADE Lorazepam (Lorazepam 2 Mg/Ml Inj) 2 mg IV NOW ONE Stop: 08/04/21 00:35 Last Admin: 08/04/21 00:40 Dose: 2 mg Documented By: IGNACIO Vital Signs Vital signs: Vital Signs - 8 hr 08/04/21 06:00 08/04/21 06:30 08/04/21 07:00 Pulse Rate 74 77 78 Respiratory Rate 17 15 14 Blood Pressure Pulse Oximetry 96 97 08/04/21 07:30 08/04/21 08:00 08/04/21 08:30 Pulse Rate 75 78 79 Respiratory Rate 12 12 15 Blood Pressure Pulse Oximetry 08/04/21 08:59 08/04/21 08:59 08/04/21 09:00 Pulse Rate 85 Respiratory Rate 18 Blood Pressure 106/78 115/78 Pulse Oximetry 08/04/21 09:00 08/04/21 09:30 08/04/21 09:30 Pulse Rate 86 81 Respiratory Rate 19 13 Blood Pressure 101/66 Pulse Oximetry 08/04/21 10:00 08/04/21 10:01 08/04/21 10:01 Pulse Rate 76 74 Respiratory Rate 17 15 Blood Pressure 107/73 Pulse Oximetry 08/04/21 10:30 08/04/21 10:30 08/04/21 11:00 Pulse Rate 77 Respiratory Rate 16 Blood Pressure 111/80 118/76 Pulse Oximetry 08/04/21 11:00 08/04/21 11:30 08/04/21 11:30 Pulse Rate 80 79 Respiratory Rate 16 12 Blood Pressure 133/83 Pulse Oximetry 08/04/21 12:00 08/04/21 12:00 08/04/21 12:30 Pulse Rate 86 Respiratory Rate 15 Blood Pressure 143/82 H 143/83 H Pulse Oximetry 08/04/21 12:30 08/04/21 13:20 08/04/21 13:00 Pulse Rate 88 Respiratory Rate 19 24 Blood Pressure 161/88 H Pulse Oximetry 96 08/04/21 13:00 Pulse Rate 92 H Respiratory Rate 26 H Blood Pressure Pulse Oximetry MDM - Arrhythmia/Palpitations <Glenn Wright PA-C - Last Filed: 08/03/21 18:05> Lab Data Result diagrams: 08/03/21 16:55 08/03/21 16:55 Labs: Lab Results 08/03/21 08/03/21 08/03/21 Range/Units 08:35 16:25 16:55 WBC 5.8 (4.5-11.0) X10^3/uL RBC 3.91 L (4.5-5.9) X10^6/uL Hgb 13.2 L (13.5-17.5) g/dL Hct 38.2 L (41-53) % MCV 97.6 (80-100) fL MCH 33.7 (26-34) PG MCHC 34.5 (30-36) % RDW 16.6 H (11.6-14.8) % Plt Count 238 (150-400) X10^3/uL Neut % (Auto) 72.7 (50-75) % Lymph % (Auto) 17.6 L (25-40) % [place] % (Auto) 8.7 (3-14) % Eos % (Auto) 0.7 L (2-4) % Baso % (Auto) 0.3 (0-2) % Neut # (Auto) 4200 (3718-9156) /uL Lymph # (Auto) 1000 L (6519-0039) /uL [place] # (Auto) 500 (0-900) /uL Eos # (Auto) 0 (0-450) /uL Baso # (Auto) 0 (0-100) /uL Sodium (137-145) mmol/L Potassium (3.4-5.1) mmol/L Chloride (98-107) mmol/L Carbon Dioxide (22-32) mmol/L BUN (9-20) mg/dL Creatinine (0.66-1.25) mg/dL Estimated GFR (>60) mL/min BUN/Creatinine Ratio (6-22) Glucose (80-110) mg/dL Calcium (8.4-10.2) mg/dL Total Bilirubin (0.2-1.3) mg/dL AST (17-59) IU/L ALT (<50) IU/L Alkaline Phosphatase (38-126) U/L Total Creatine Kinase (55-170) U/L CK-MB (CK-2) CK-MB (CK-2) Rel Index Troponin I (0.01-0.034) ng/mL Total Protein (6.3-8.2) g/dL Albumin (3.5-5.0) g/dL Globulin (1.7-4.1) g/dL Albumin/Globulin Ratio (1.0-2.8) Procalcitonin (<0.5) ng/mL Urine Color Yellow Urine Appearance Clear Urine pH 6.0 (4.5-8.0) Ur Specific [place] 1.015 (1.000-1.035) Urine Protein Negative (Negative) Urine Glucose (UA) Negative (Negative) g/dL Urine Ketones Negative (NEGATIVE) Urine Occult Blood Trace-lysed (Negative) Urine Nitrate Negative (Negative) Urine Bilirubin Negative (NEGATIVE) Urine Urobilinogen 0.2 (0.2) E.U./dL Ur Leukocyte Esterase Negative (NEGATIVE) Urine RBC 0-1/hpf (0-5/HPF) Urine WBC 0-1/hpf (0-5/HPF) Ur Squamous Epith Cells 0-1 /hpf (0-5/HPF) Urine Bacteria None seen (None) Hyaline Casts 10-30/lpf (None) Ur Culture Indicated? Cult not indicated Ethyl Alcohol ( - 10) mg/dL SARS-CoV-2 (PCR) Negative (Negative) 08/03/21 08/03/21 08/03/21 Range/Units 16:55 16:55 16:55 WBC (4.5-11.0) X10^3/uL RBC (4.5-5.9) X10^6/uL Hgb (13.5-17.5) g/dL Hct (41-53) % MCV (80-100) fL MCH (26-34) PG MCHC (30-36) % RDW (11.6-14.8) % Plt Count (150-400) X10^3/uL Neut % (Auto) (50-75) % Lymph % (Auto) (25-40) % [place] % (Auto) (3-14) % Eos % (Auto) (2-4) % Baso % (Auto) (0-2) % Neut # (Auto) (3739-2346) /uL Lymph # (Auto) (4717-6940) /uL [place] # (Auto) (0-900) /uL Eos # (Auto) (0-450) /uL Baso # (Auto) (0-100) /uL Sodium 140 (137-145) mmol/L Potassium 4.5 (3.4-5.1) mmol/L Chloride 104 (98-107) mmol/L Carbon Dioxide 24 (22-32) mmol/L BUN 26 H (9-20) mg/dL Creatinine 1.38 H (0.66-1.25) mg/dL Estimated GFR 53 L (>60) mL/min BUN/Creatinine Ratio 18.8 (6-22) Glucose 91 (80-110) mg/dL Calcium 9.0 (8.4-10.2) mg/dL Total Bilirubin 0.9 (0.2-1.3) mg/dL AST 40 (17-59) IU/L ALT 22 (<50) IU/L Alkaline Phosphatase 62 (38-126) U/L Total Creatine Kinase 66 (55-170) U/L CK-MB (CK-2) TNP CK-MB (CK-2) Rel Index TNP Troponin I < 0.012 (0.01-0.034) ng/mL Total Protein 7.5 (6.3-8.2) g/dL Albumin 4.6 (3.5-5.0) g/dL Globulin 2.9 (1.7-4.1) g/dL Albumin/Globulin Ratio 1.6 (1.0-2.8) Procalcitonin 0.05 (<0.5) ng/mL Urine Color Urine Appearance Urine pH (4.5-8.0) Ur Specific [place] (1.000-1.035) Urine Protein (Negative) Urine Glucose (UA) (Negative) g/dL Urine Ketones (NEGATIVE) Urine Occult Blood (Negative) Urine Nitrate (Negative) Urine Bilirubin (NEGATIVE) Urine Urobilinogen (0.2) E.U./dL Ur Leukocyte Esterase (NEGATIVE) Urine RBC (0-5/HPF) Urine WBC (0-5/HPF) Ur Squamous Epith Cells (0-5/HPF) Urine Bacteria (None) Hyaline Casts (None) Ur Culture Indicated? Ethyl Alcohol < 10 ( - 10) mg/dL SARS-CoV-2 (PCR) (Negative) <Dawn Paez DO - Last Filed: 08/09/21 18:46> Lab Data Labs: Lab Results 08/03/21 08/03/21 08/03/21 Range/Units 08:35 16:25 16:55 WBC 5.8 (4.5-11.0) X10^3/uL RBC 3.91 L (4.5-5.9) X10^6/uL Hgb 13.2 L (13.5-17.5) g/dL Hct 38.2 L (41-53) % MCV 97.6 (80-100) fL MCH 33.7 (26-34) PG MCHC 34.5 (30-36) % RDW 16.6 H (11.6-14.8) % Plt Count 238 (150-400) X10^3/uL Neut % (Auto) 72.7 (50-75) % Lymph % (Auto) 17.6 L (25-40) % [place] % (Auto) 8.7 (3-14) % Eos % (Auto) 0.7 L (2-4) % Baso % (Auto) 0.3 (0-2) % Neut # (Auto) 4200 (9222-5806) /uL Lymph # (Auto) 1000 L (6864-7284) /uL [place] # (Auto) 500 (0-900) /uL Eos # (Auto) 0 (0-450) /uL Baso # (Auto) 0 (0-100) /uL Sodium (137-145) mmol/L Potassium (3.4-5.1) mmol/L Chloride (98-107) mmol/L Carbon Dioxide (22-32) mmol/L BUN (9-20) mg/dL Creatinine (0.66-1.25) mg/dL Estimated GFR (>60) mL/min BUN/Creatinine Ratio (6-22) Glucose (80-110) mg/dL Calcium (8.4-10.2) mg/dL Total Bilirubin (0.2-1.3) mg/dL AST (17-59) IU/L ALT (<50) IU/L Alkaline Phosphatase (38-126) U/L Total Creatine Kinase (55-170) U/L CK-MB (CK-2) CK-MB (CK-2) Rel Index Troponin I (0.01-0.034) ng/mL Total Protein (6.3-8.2) g/dL Albumin (3.5-5.0) g/dL Globulin (1.7-4.1) g/dL Albumin/Globulin Ratio (1.0-2.8) Procalcitonin (<0.5) ng/mL Urine Color Yellow Urine Appearance Clear Urine pH 6.0 (4.5-8.0) Ur Specific [place] 1.015 (1.000-1.035) Urine Protein Negative (Negative) Urine Glucose (UA) Negative (Negative) g/dL Urine Ketones Negative (NEGATIVE) Urine Occult Blood Trace-lysed (Negative) Urine Nitrate Negative (Negative) Urine Bilirubin Negative (NEGATIVE) Urine Urobilinogen 0.2 (0.2) E.U./dL Ur Leukocyte Esterase Negative (NEGATIVE) Urine RBC 0-1/hpf (0-5/HPF) Urine WBC 0-1/hpf (0-5/HPF) Ur Squamous Epith Cells 0-1 /hpf (0-5/HPF) Urine Bacteria None seen (None) Hyaline Casts 10-30/lpf (None) Ur Culture Indicated? Cult not indicated Ethyl Alcohol ( - 10) mg/dL SARS-CoV-2 (PCR) Negative (Negative) 08/03/21 08/03/21 08/03/21 Range/Units 16:55 16:55 16:55 WBC (4.5-11.0) X10^3/uL RBC (4.5-5.9) X10^6/uL Hgb (13.5-17.5) g/dL Hct (41-53) % MCV (80-100) fL MCH (26-34) PG MCHC (30-36) % RDW (11.6-14.8) % Plt Count (150-400) X10^3/uL Neut % (Auto) (50-75) % Lymph % (Auto) (25-40) % [place] % (Auto) (3-14) % Eos % (Auto) (2-4) % Baso % (Auto) (0-2) % Neut # (Auto) (9949-2699) /uL Lymph # (Auto) (4371-0219) /uL [place] # (Auto) (0-900) /uL Eos # (Auto) (0-450) /uL Baso # (Auto) (0-100) /uL Sodium 140 (137-145) mmol/L Potassium 4.5 (3.4-5.1) mmol/L Chloride 104 (98-107) mmol/L Carbon Dioxide 24 (22-32) mmol/L BUN 26 H (9-20) mg/dL Creatinine 1.38 H (0.66-1.25) mg/dL Estimated GFR 53 L (>60) mL/min BUN/Creatinine Ratio 18.8 (6-22) Glucose 91 (80-110) mg/dL Calcium 9.0 (8.4-10.2) mg/dL Total Bilirubin 0.9 (0.2-1.3) mg/dL AST 40 (17-59) IU/L ALT 22 (<50) IU/L Alkaline Phosphatase 62 (38-126) U/L Total Creatine Kinase 66 (55-170) U/L CK-MB (CK-2) TNP CK-MB (CK-2) Rel Index TNP Troponin I < 0.012 (0.01-0.034) ng/mL Total Protein 7.5 (6.3-8.2) g/dL Albumin 4.6 (3.5-5.0) g/dL Globulin 2.9 (1.7-4.1) g/dL Albumin/Globulin Ratio 1.6 (1.0-2.8) Procalcitonin 0.05 (<0.5) ng/mL Urine Color Urine Appearance Urine pH (4.5-8.0) Ur Specific [place] (1.000-1.035) Urine Protein (Negative) Urine Glucose (UA) (Negative) g/dL Urine Ketones (NEGATIVE) Urine Occult Blood (Negative) Urine Nitrate (Negative) Urine Bilirubin (NEGATIVE) Urine Urobilinogen (0.2) E.U./dL Ur Leukocyte Esterase (NEGATIVE) Urine RBC (0-5/HPF) Urine WBC (0-5/HPF) Ur Squamous Epith Cells (0-5/HPF) Urine Bacteria (None) Hyaline Casts (None) Ur Culture Indicated? Ethyl Alcohol < 10 ( - 10) mg/dL SARS-CoV-2 (PCR) (Negative) MDM Narrative Medical decision making narrative: Charannick- Patient signed out to me by glenn Wright. He patient is a severe alcoholic he is unable to care for himself at home he has no family support. Social Work initially evaluated him car he was not safe to go home. He unfortunately does not meet any sort of admission criteria at this time. Waiting for social Work re-evaluation today possible physical therapy is. Monitor for withdrawal symptoms. Signed out to Dr. Bingham for further management <Lc Bingham MD - Last Filed: 08/04/21 13:59> Lab Data Labs: Lab Results 08/03/21 08/03/21 08/03/21 Range/Units 08:35 16:25 16:55 WBC 5.8 (4.5-11.0) X10^3/uL RBC 3.91 L (4.5-5.9) X10^6/uL Hgb 13.2 L (13.5-17.5) g/dL Hct 38.2 L (41-53) % MCV 97.6 (80-100) fL MCH 33.7 (26-34) PG MCHC 34.5 (30-36) % RDW 16.6 H (11.6-14.8) % Plt Count 238 (150-400) X10^3/uL Neut % (Auto) 72.7 (50-75) % Lymph % (Auto) 17.6 L (25-40) % [place] % (Auto) 8.7 (3-14) % Eos % (Auto) 0.7 L (2-4) % Baso % (Auto) 0.3 (0-2) % Neut # (Auto) 4200 (4479-2492) /uL Lymph # (Auto) 1000 L (2670-1898) /uL [place] # (Auto) 500 (0-900) /uL Eos # (Auto) 0 (0-450) /uL Baso # (Auto) 0 (0-100) /uL Sodium (137-145) mmol/L Potassium (3.4-5.1) mmol/L Chloride (98-107) mmol/L Carbon Dioxide (22-32) mmol/L BUN (9-20) mg/dL Creatinine (0.66-1.25) mg/dL Estimated GFR (>60) mL/min BUN/Creatinine Ratio (6-22) Glucose (80-110) mg/dL Calcium (8.4-10.2) mg/dL Total Bilirubin (0.2-1.3) mg/dL AST (17-59) IU/L ALT (<50) IU/L Alkaline Phosphatase (38-126) U/L Total Creatine Kinase (55-170) U/L CK-MB (CK-2) CK-MB (CK-2) Rel Index Troponin I (0.01-0.034) ng/mL Total Protein (6.3-8.2) g/dL Albumin (3.5-5.0) g/dL Globulin (1.7-4.1) g/dL Albumin/Globulin Ratio (1.0-2.8) Procalcitonin (<0.5) ng/mL Urine Color Yellow Urine Appearance Clear Urine pH 6.0 (4.5-8.0) Ur Specific [place] 1.015 (1.000-1.035) Urine Protein Negative (Negative) Urine Glucose (UA) Negative (Negative) g/dL Urine Ketones Negative (NEGATIVE) Urine Occult Blood Trace-lysed (Negative) Urine Nitrate Negative (Negative) Urine Bilirubin Negative (NEGATIVE) Urine Urobilinogen 0.2 (0.2) E.U./dL Ur Leukocyte Esterase Negative (NEGATIVE) Urine RBC 0-1/hpf (0-5/HPF) Urine WBC 0-1/hpf (0-5/HPF) Ur Squamous Epith Cells 0-1 /hpf (0-5/HPF) Urine Bacteria None seen (None) Hyaline Casts 10-30/lpf (None) Ur Culture Indicated? Cult not indicated Ethyl Alcohol ( - 10) mg/dL SARS-CoV-2 (PCR) Negative (Negative) 08/03/21 08/03/21 08/03/21 Range/Units 16:55 16:55 16:55 WBC (4.5-11.0) X10^3/uL RBC (4.5-5.9) X10^6/uL Hgb (13.5-17.5) g/dL Hct (41-53) % MCV (80-100) fL MCH (26-34) PG MCHC (30-36) % RDW (11.6-14.8) % Plt Count (150-400) X10^3/uL Neut % (Auto) (50-75) % Lymph % (Auto) (25-40) % [place] % (Auto) (3-14) % Eos % (Auto) (2-4) % Baso % (Auto) (0-2) % Neut # (Auto) (3921-8305) /uL Lymph # (Auto) (6118-6708) /uL [place] # (Auto) (0-900) /uL Eos # (Auto) (0-450) /uL Baso # (Auto) (0-100) /uL Sodium 140 (137-145) mmol/L Potassium 4.5 (3.4-5.1) mmol/L Chloride 104 (98-107) mmol/L Carbon Dioxide 24 (22-32) mmol/L BUN 26 H (9-20) mg/dL Creatinine 1.38 H (0.66-1.25) mg/dL Estimated GFR 53 L (>60) mL/min BUN/Creatinine Ratio 18.8 (6-22) Glucose 91 (80-110) mg/dL Calcium 9.0 (8.4-10.2) mg/dL Total Bilirubin 0.9 (0.2-1.3) mg/dL AST 40 (17-59) IU/L ALT 22 (<50) IU/L Alkaline Phosphatase 62 (38-126) U/L Total Creatine Kinase 66 (55-170) U/L CK-MB (CK-2) TNP CK-MB (CK-2) Rel Index TNP Troponin I < 0.012 (0.01-0.034) ng/mL Total Protein 7.5 (6.3-8.2) g/dL Albumin 4.6 (3.5-5.0) g/dL Globulin 2.9 (1.7-4.1) g/dL Albumin/Globulin Ratio 1.6 (1.0-2.8) Procalcitonin 0.05 (<0.5) ng/mL Urine Color Urine Appearance Urine pH (4.5-8.0) Ur Specific Bishop (1.000-1.035) Urine Protein (Negative) Urine Glucose (UA) (Negative) g/dL Urine Ketones (NEGATIVE) Urine Occult Blood (Negative) Urine Nitrate (Negative) Urine Bilirubin (NEGATIVE) Urine Urobilinogen (0.2) E.U./dL Ur Leukocyte Esterase (NEGATIVE) Urine RBC (0-5/HPF) Urine WBC (0-5/HPF) Ur Squamous Epith Cells (0-5/HPF) Urine Bacteria (None) Hyaline Casts (None) Ur Culture Indicated? Ethyl Alcohol < 10 ( - 10) mg/dL SARS-CoV-2 (PCR) (Negative) Discharge Plan Departure Patient Disposition: Home Clinical Impression: Weakness, Cognitive deficits Activity Restrictions/Additional Instructions: The patient will be seen regularly by home health. He is advised arrange follow-up with his regular doctor. Return here as needed. Prescriptions: No Action metoprolol succinate 25 mg tablet extended release 24 hr 25 mg PO DAILY Qty: 30 0RF Label Comments: Pt reports taking every other day, at best. Also stated only takes 2 pills, since it RX'd. furosemide 20 mg tablet 10 mg PO QAM Qty: 45 1RF Referrals: Cris Reyna MD [Primary Care Provider] - Visit Report Forms: Patient Portal/API
[2021-08-03] MEDS: LORazepam 2 MG/ML INJ 0.5 MG IV (16:35)
[2021-08-03 17:06] LABS: Add Manual Diff / Slide Review NO; Basophils Absolute Auto 0 /uL (0-100); Basophils Percent Auto 0.3 % (0-2); Eosinophils Absolute Auto 0 /uL (0-450); Eosinophils Percent Auto 0.7 % (2-4); Hematocrit 38.2 % (41-53); Hemoglobin 13.2 g/dL (13.5-17.5); Lymphocytes Absolute Auto 1000 /uL (1100-4500); Lymphocytes Percent Auto 17.6 % (25-40); Mean Corpuscular HGB Conc 34.5 % (30-36); Mean Corpuscular Hemoglobin 33.7 PG (26-34); Mean Corpuscular Volume 97.6 fL (80-100); Monocytes Absolute Auto 500 /uL (0-900); Monocytes Percent Auto 8.7 % (3-14); Neutrophils Absolute Auto 4200 /uL (1500-7000); Neutrophils Percent Auto 72.7 % (50-75); Platelet Count 238 X10^3/uL (150-400); Red Blood Cell Count 3.91 X10^6/uL (4.5-5.9); Red Cell Distribution Width 16.6 % (11.6-14.8); White Blood Cell Count 5.8 X10^3/uL (4.5-11.0)
[2021-08-03 17:35] LABS: Ethanol (ETOH) < 10 mg/dL
[2021-08-03 17:38] LABS: Alanine Aminotransferase 22 IU/L (<50); Albumin 4.6 g/dL (3.5-5.0); Albumin Globulin Ratio 1.6 (1.0-2.8); Alkaline Phosphatase 62 U/L (38-126); Aspartate Aminotransferase 40 IU/L (17-59); BUN Creatinine Ratio 18.8 (6-22); Bilirubin Total 0.9 mg/dL (0.2-1.3); Blood Urea Nitrogen 26 mg/dL (9-20); Carbon Dioxide 24 mmol/L (22-32); Chloride 104 mmol/L (98-107); Creatine Kinase 66 U/L (55-170); Estimated Glomerular Filt Rate 53 mL/min (>60); Globulin 2.9 g/dL (1.7-4.1); Glucose 91 mg/dL (80-110); HEMOLYSIS 34 (0-50); Potassium 4.5 mmol/L (3.4-5.1); Sodium 140 mmol/L (137-145); Total Protein 7.5 g/dL (6.3-8.2)
[2021-08-03 17:45] LABS: Appearance Urine UA CLEAR; Bilirubin Urine UA NEGATIVE (NEGATIVE); Color Urine UA YELLOW; Glucose Urine UA NEGATIVE (Negative); Ketones Urine UA NEGATIVE (NEGATIVE); Leukocyte Esterase Urine UA NEGATIVE (NEGATIVE); Nitrite Urine UA NEGATIVE (Negative); Occult Blood Urine UA TRACE-LYSED (Negative); Protein Urine UA NEGATIVE (Negative); Specific Gravity Urine UA 1.015 (1.000-1.035); Urobilinogen Urine UA 0.2 E.U./dL (0.2)
[2021-08-03 17:48] LABS: Troponin I < 0.012 ng/mL (0.01-0.034)
[2021-08-03 18:08] LABS: Bacteria Urine None Seen; RBC Urine 0-1/HPF (0-5/HPF); Squamous Epithelial Cell Urine 0-1 /HPF (0-5/HPF); WBC Urine 0-1/HPF (0-5/HPF)
[2021-08-03 18:09] LABS: Culture Indicated Urine Cult Not Indicated; Hyaline Casts Urine 10-30/LPF
[2021-08-03] MEDS: SODIUM CHLORIDE 0.9% 1,000 ML 1000 ML IV (18:20)
[2021-08-03 18:56] LABS: Procalcitonin 0.05 ng/mL (<0.5)
--- NOTE | 2021-08-03 19:32 | CM.DANOTE ---
DCP Assessment Patient is 76 y/o male who presents to ED via EMS due to concern for anxiety, heart palpitations and chest pain. Patient also reports that he fell earlier today and was not able to get back up. Per EMS, patient had difficultly making decisions regarding if he needed to go to the ED or not and changed his mind several times so EMS proceeded to bring him in. Per EMS, patient's HH OT provider called 911 and endorsed her plan to call APS due to concerns for patient's ability to care for self. Patient has hx of AFib and alcohol use disorder. Patient's PCP is Dr. Cris Reyna. Patient has Medicare and for Life insurance. VETERINARY SCIENCE TEACHER enters room to meet with patient, patient presents as A/Ox3 but responds I don't know to most questions and presents as a poor historian and impaired memory. Patient presents with discomfort and difficulty breathing while sitting and endorses current anxiety. Patient endorses he is residing alone and his is with his daughter and grandchildren. Patient denies any local supports other than his best friend who he checks in with every few weeks. VETERINARY SCIENCE TEACHER asks about [facility] and patient does not recall or recollect that he is engaging with such service. Patient denies any supports at home. Patient endorses that he does not drive and he relies on others to get around. Patient states that he has not eaten since yesterday afternoon but states he has enough food in the home. Per EMR, patient has referral for Meals on Wheels in place. Patient endorses that he fell today and could not get up, has trouble taking care of himself over the last few days. Patient endorses that he has a FWW but he does not use it. Patient's toxicology screen is negative for ETOH and patient reports that his last drink was Monday. Per EMR, patient has current referral for HH as of 07/25/21. VETERINARY SCIENCE TEACHER calls Ruchi at [facility] who reports patient has current referral for RN, PT, OT and VETERINARY SCIENCE TEACHER. It was reported that at the start of care it was questionable if HH services would continue due to patient's continued ETOH use. It is reported that OT went out to home today and patient presented with episode of cold sweats, anxiety, and difficulty breathing so 911 was called. Ruchi also reports that OT provider plans to contact APS due to concern for patient's self neglect. Ruchi reports that at this time, patient is not appropriate for due to his ongoing ETOH use, inability to manage medication, and inability to care for self. Ruchi recommends that patient is in need of a higher level of care. VETERINARY SCIENCE TEACHER reviews the above with ED providers Zander Wright PA-C and Dr. Paez. Due to concern for patient's medical hx and current presentation, patient may board in ED this evening and be re-assessed tomorrow for further POC. Plan: VETERINARY SCIENCE TEACHER to relay patient information to next ED VETERINARY SCIENCE TEACHER on shift tomorrow to determine appropriate plan of care, after potential PT eval during daytime hours. JEROME Uriarte Discharge Planning/Care Management CM Discharge Assessment Start: 08/03/21 19:24 Freq: Status: Active Protocol: Document 08/03/21 19:25 LN (Rec: 08/03/21 19:32 LN [id number]) Discharge Planning Assessment Advance Directives? Yes Advance Directives on File No History Provided By Patient,Medical Record Has Patient been admitted in last 30 Yes days? Comment Patient was admitted to acute care on 07/23/21 to 07/25/21 with a d/c plan of home with Home health. Prior Living Arrangements House Household Members none Comment Patient states that his is out of town with family, per last DCP assessment patient's may not return. Type of transporation used prior to Relies on Others admit Comment Patient endorses his best friend drives him around as he cannot drive anymore. Independent with ADL's No Is patient alert and oriented? Yes: Patient is A/O to self and person, but presents as confused Needs Assistance With Managing Medications,Home Chores / Shopping Community Services used prior to Physical Therapy,Occupational admission: Therapy,Home Health Aid,Home Health Nurse,Home Delivered Meals,Social Work Comment Patient has current referral for [facility] for RN, PT, OT and VETERINARY SCIENCE TEACHER. Per Ruchi at [facility], patient may be terminated from service due to concern for ETOH use. DME Already Rented / Owned FWW / Walker Comment Patient endorses that he has FWW but does not use it. Comment Patient has hx of ETOH abuse, confusion, medication non- compliance and has burned bridges w/in his family and community, likely d/t chronic heavy ETOH use. Please Provide Date Initial DC 08/03/21 Assessment Was Performed
[2021-08-03 21:00] LABS: COVID19 -Nasal RAPID Negative (Negative)
[2021-08-04] VITALS (33 sets, daily range): BP systolic 98–161; BP diastolic 59–88; PULSE 73–92; RESP 12–26; TEMP 36.7; O2SAT 94–99
[2021-08-04] MEDS: LORazepam 2 MG/ML INJ IV (00:40)
--- NOTE | 2021-08-04 05:05 | PC.NURSE ---
CIWA score of 1 at this time. Pt sleeping until this RN came into room for VS recheck. Pt VSS on RA, pt reports feeling sleepy, but remains oriented has GCS 15. Pt denies pain.
--- NOTE | 2021-08-04 13:20 | PC.NURSE ---
patient was able to walk around the department with no complaints. States he is slower because he has been in bed the past couple days.
--- NOTE | 2021-08-04 14:10 | CM.SWNOTE ---
ED mental health social worker met with patient at bedside. Patient was able to share date, oriented to place and circumstance, knew name and . Patient reported he didn't have any more alcohol at home that's why I wasn't drinking and that he is no longer driving so couldn't get any more alcohol for himself. Patient reported his friend would probably not get me any either. Patient reported he is currently residing solo at his home as his is in [place] with their daughter helping to care for their grandchildren. He reported he didn't know when his might return she likes it there and our daughter appreciates the help. He stated his daughter is a professor and works interactive multimedia designer. Patient reported he had food at home and has friend(s) he can contact to help replenish his food supply as needed. Patient met with attending at bedside accompanied by mental health social worker. Patient not displaying tremors or reporting withdrawal symptoms at this time. Patient is requesting discharge home from attending who told patient he will have nurse evaluate patient's ability to walk independently or with adaptive device prior to discharge decision being made. Patient was A/O x4 for attending assessment as well. Patient reported he did not believe he needed SNF or assisted living I can still get around fine. Patient did admit to falling and having trouble getting back up I don't know what happened there but I feel fine now. Patient was able to subsequently walk through ED with nurse (no PT eval requested). Patient requested to discharge home. Patient is willing to continue working with provider. optical goods worker contacted Zahra at [facility] who will talk with her team about reopening with patient as patient's ETOH was at zero in ED and the team had presumed that the patient had fallen related to ETOH use. optical goods worker and attending conferred. Patient is oriented and has capacity for making decisions. Patient is able to request discharge home at this time. Patient contacted his friend for a ride home from ED. Attending will be discharging patient home. Awaiting confirmation that they will be reopening at time of this note. Rene AGOSTO
--- NOTE | 2021-08-04 15:15 | PC.NURSE ---
Patient was asking radiology receptionist if he could go outside while waiting for his ride to pick him up. Pt states his ride did call him back and is about an hour away. Patient stated he wanted to stay outside for now in the sun and fresh air. I told him I will check back on him to make sure he is OK. Patient sitting in wheelchair
== END 2021-08-04 14:14 | disposition home or self-care (01) ==
PROVIDERS: Physician Assistant; Emergency Provider Emergency Medicine; PCP Student in an Organized Health Care Education/Training Program
DX: R53.1 Weakness (principal); R41.89 Other symptoms and signs involving cognitive functions and awareness; R06.02 Shortness of breath; R07.9 Chest pain, unspecified; Z20.822 Contact with and (suspected) exposure to COVID-19
CPT/HCPCS: 36415; 71045; 80053; 80320; 81001; 82550; 84145; 84484; 85025; 87635; 93005; 96361; 96374; 96376; 99284; C9803; J2060

== ENCOUNTER → 2021-08-26 09:42 | Outpatient (CLI) | payer MEDICARE, OTHER, SELFPAY ==
[2019-07-03 21:02] VITALS: PULSE 98; RESP 16; O2SAT 98
[2021-07-23 03:14] VITALS: BMI 24.3
--- NOTE | 2021-09-17 07:40 | P.HOLT.S_ITS ---
Qa Automation Architect Report Referral & Results Date Patient Seen: 08/26/21 Requesting provider: Lc Ambrose Indication: Atrial fibrillation Duration of monitoring (days): 14 Diary information: There were no patient events to review Data: Minimum heart rate identified was 44 beats per minute at 09:01 on 09/07/2021 Maximum heart rate was 169 beats per minute at 13:28 on 09/01/2021 Less than 1% of identified beats were ventricular ectopic in origin which would classify them as rare Patient was continuously in atrial fibrillation during this study with heart rate ranging as above between 44 and 161 beats per minute There was 1 run of nonsustained monomorphic ventricular tachycardia that was 4 beats in duration There were no pauses of 3 seconds or longer identified on this study Impression: Patient continuously in atrial fibrillation with rates as above Single run of nonsustained VT also noted Clinical correlation suggested
== END ==
PROVIDERS: PCP Student in an Organized Health Care Education/Training Program; Referring Provider Family Medicine; Visit Provider Family Medicine
DX: I48.91 Unspecified atrial fibrillation (principal)
CPT/HCPCS: 93246; 93248

== ENCOUNTER 2022-02-06 13:53 | Emergency (ER) | payer MEDICARE, OTHER, SELFPAY ==
[2019-07-03 21:02] VITALS: PULSE 98; RESP 16; O2SAT 98
[2021-07-23 03:14] VITALS: BMI 24.3
[2022-02-06 13:58] VITALS: BP 103/58; PULSE 94; RESP 22; TEMP 37; O2SAT 97; BMI 24.3
--- NOTE | 2022-02-06 14:13 | DI.RAD.S_ITS ---
PROCEDURE: XR CHEST 1V INDICATIONS: chest pain TECHNIQUE: One view of the chest was acquired. COMPARISON: [facility], CT, CT CHEST ABDOMEN PELVIS WITH CONTRAST, 06/28/2021, 19:57. , CR, XR CHEST 1V, 07/23/2021, 0:41. , CR, XR CHEST 1V, 07/03/2021, 20:39. , CR, XR CHEST 1V, 08/03/2021, 16:32. FINDINGS: Surgical changes and devices: None. Lungs and pleura: Low lung volumes are noted. This causes a crowded appearance to the lung markings and limits evaluation. Mild interstitial prominence can be seen. Mild, streaky opacities are seen at the lung bases. Mediastinum: The cardiac contours are within normal limits. The aorta demonstrates calcification and tortuosity. Bones and chest wall: Age-appropriate bony degenerative changes are seen. No suspicious bony lesions. Overlying soft tissues appear unremarkable. IMPRESSION: Interstitial prominence can be seen. Mild pulmonary edema is suspected, although differential diagnosis includes artifact and atypical infection. Likely streaky atelectasis at the lung bases. Heart size within normal limits for portable technique. Dictated by: Bonilla Moore M.D. on 02/06/2022 at 13:22 Approved by: Bonilla Moore M.D. on 02/06/2022 at 13:24
--- NOTE | 2022-02-06 14:31 | PC.NURSE ---
Addendum entered by Gely Heredia R.N. 02/06/22 14:48: Pt declines aspirin. Original Note: Pt reports I haven't been officially diagnosed with a fib. Per EMS pt was in Afib RVR then converted en route. Pt report not taking any medications. When asked why pt stated, I don't know. Pt reports concern for financial stability. MACHINE REBUILDER consult placed.
--- NOTE | 2022-02-06 14:46 | PC.NURSE ---
Pt having tremors. Pt reports last alcoholic drink on Monday. Pt states he has 4-5 drinks of 2 ounces each of hard alcohol about 4 times a week. Pt also reports feeling anxious.
[2022-02-06 14:50] LABS: Add Manual Diff / Slide Review NO; Basophils Absolute Auto 0 /uL (0-100); Basophils Percent Auto 0.8 % (0-2); Eosinophils Absolute Auto 0 /uL (0-450); Eosinophils Percent Auto 0.3 % (2-4); Hematocrit 31.3 % (41-53); Hemoglobin 10.3 g/dL (13.5-17.5); Lymphocytes Absolute Auto 800 /uL (1100-4500); Lymphocytes Percent Auto 14.4 % (25-40); Mean Corpuscular HGB Conc 32.9 % (30-36); Mean Corpuscular Hemoglobin 34.6 PG (26-34); Mean Corpuscular Volume 105.1 fL (80-100); Monocytes Absolute Auto 600 /uL (0-900); Monocytes Percent Auto 11.2 % (3-14); Neutrophils Absolute Auto 3900 /uL (1500-7000); Neutrophils Percent Auto 73.3 % (50-75); Platelet Count 175 X10^3/uL (150-400); Red Blood Cell Count 2.98 X10^6/uL (4.5-5.9); Red Cell Distribution Width 14.2 % (11.6-14.8); White Blood Cell Count 5.4 X10^3/uL (4.5-11.0)
[2022-02-06 14:54] LABS: HEMOLYSIS 30 (0-50); Sodium 137 mmol/L (137-145)
[2022-02-06 14:55] LABS: Alanine Aminotransferase 27 IU/L (<50); Albumin 3.5 g/dL (3.5-5.0); Albumin Globulin Ratio 1.5 (1.0-2.8); Alkaline Phosphatase 61 U/L (38-126); Aspartate Aminotransferase 40 IU/L (17-59); BUN Creatinine Ratio 20.4 (6-22); Bilirubin Total 0.5 mg/dL (0.2-1.3); Blood Urea Nitrogen 19 mg/dL (9-20); Calcium 8.1 mg/dL (8.4-10.2); Carbon Dioxide 17 mmol/L (22-32); Chloride 109 mmol/L (98-107); Creatine Kinase 63 U/L (55-170); Estimated Glomerular Filt Rate > 60 mL/min (>60); Globulin 2.4 g/dL (1.7-4.1); Glucose 211 mg/dL (80-110); Lipase 100 U/L (23-300); Magnesium 1.5 mg/dL (1.6-2.3); Potassium 4.1 mmol/L (3.4-5.1); Total Protein 5.9 g/dL (6.3-8.2)
[2022-02-06 15:04] LABS: INR 1.1 (0.9-1.3); Prothrombin Time 12.7 SECONDS (10.1-12.7)
[2022-02-06 15:05] LABS: PTT Partial Thromboplastin Tim 23 SECONDS (26-36)
[2022-02-06 15:07] LABS: Troponin I < 0.012 ng/mL (0.01-0.034)
[2022-02-06 15:09] VITALS: PULSE 88; RESP 18; O2SAT 96
[2022-02-06 15:26] LABS: COVID19 -Nasal RAPID Negative (Negative)
--- NOTE | 2022-02-06 15:39 | ED_ITS ---
HPI - Chest Pain General Chief Complaint: Chest Pain Stated Complaint: AFIB RVR Time Seen by Provider: 02/06/22 14:18 Source: patient and EMS Mode of arrival: EMS Limitations: no limitations History of Present Illness HPI narrative: 76-year-old male former smoker with history of alcohol abuse presents with a chief complaint of a rapid and irregular heart rate over the course of the day. He states that he has a known history of atrial fibrillation and was in his normal state of health until this morning when he noticed a rapid and irregular heart rate. He developed chest pain, pressure and shortness of breath and called EMS. On their arrival they found him in a rapid AFib in the 140s but before any medications could be administered he had slowed to the 70s, 80s and 90s and symptoms have improved along with it. Related Data Previous Rx's Medication Instructions Recorded metoprolol succinate 25 mg 25 mg PO DAILY #30 tabs 06/08/21 tablet,extended release 24 hr furosemide 20 mg tablet 10 mg PO QAM #45 tabs 07/24/21 apixaban 5 mg tablet (Eliquis) 5 mg PO BID #60 tabs 02/06/22 doxycycline hyclate 100 mg tablet 100 mg PO BID #20 tabs 02/06/22 Allergies Allergy/AdvReac Type Severity Reaction Status Date / Time amoxicillin [AMOXICILLIN] Allergy Severe SWOLLEN JAW Verified 07/03/21 20:26 clindamycin [CLINDAMYCIN] AdvReac Severe C-DIFF Verified 07/03/21 20:26 Review of Systems Review of Systems Narrative: GENERAL: Denies chills, fatigue, malaise, fever, sweats. HEENT: Denies sinus pain, ear pain, sore throat, difficulty swallowing, dizziness. RESPIRATORY: Denies dyspnea, cough, wheezing, hemoptysis, sputum. CARDIOVASCULAR: Denies chest pain, palpitations, orthopnea, edema, GASTROINTESTINAL: Denies nausea, vomiting, abdominal pain, diarrhea, constipation, melena. : Denies dysuria, frequency, incontinence, hematuria, urinary retention. MUSCULOSKELETAL: denies weakness, joint pain, or bony pain SKIN: Denies rash, skin lesions, or other NEUROLOGIC: Denies weakness, headache, numbness, change in speech, confusion, seizures, incoordination. PSYCHIATRIC: No concerning psychosocial issues. 12 point review of systems is negative except for those stated above Patient History Medical History Alcohol abuse Alcohol withdrawal Alcohol withdrawal delirium Anemia, chronic disease Atrial fibrillation BPH w urinary obs/LUTS Cardiomyopathy Former smoker Gout History of adenomatous polyp of colon HTN (hypertension) Mixed hyperlipidemia Surgical History History of percutaneous endoscopic gastrostomy (~2019) Family History Mother Lung cancer Sister Rheumatoid arthritis Social History marital status: household members: none occupational status: previously employed Smoking Status: Former smoker alcohol intake: current substance use type: does not use Smoking Status: Former smoker alcohol intake frequency: 3 or more drinks per day Alcohol type: beer, wine and hard liquor Substance Use Type: does not use Exam Narrative Exam Narrative: GENERAL: [76] year old patient appears stated age. Well-developed patient, in mild distress. HEAD: Atraumatic. Normocephalic. EYES: Pupils equal round and reactive. Extraocular motions intact. No scleral icterus. No injection or drainage. ENT: Nose without bleeding, purulent drainage. Throat without erythema, tonsillar hypertrophy or exudate. Airway patent. NECK: Trachea midline. Non tender CARDIOVASCULAR: Regular rate and rhythm without murmurs, gallops, or rubs. RESPIRATORY: Clear to auscultation. Breath sounds equal bilaterally. No wheezes, rales, or rhonchi. GASTROINTESTINAL: Abdomen soft, non-tender, nondistended. EXTREMITIES: No edema or joint tenderness. BACK: Nontender without deformity or crepitance. No flank tenderness. NEURO: AOx3. SKIN: No rash or erythema of visible areas Initial Vital Signs Initial Vital Signs: Vital Signs Temperature 98.6 F 02/06/22 13:58 Pulse Rate 94 H 02/06/22 13:58 Respiratory Rate 22 02/06/22 13:58 Blood Pressure 103/58 L 02/06/22 13:58 Pulse Oximetry 97 02/06/22 13:58 Oxygen Delivery Method 02/06/22 13:58 Scores CHADS-VASc Congestive heart failure: no Hypertension: no Age 75 years or older: yes Diabetes mellitus: no Stroke, TIA, or TE: no Vascular disease: no Age 65 to 74 years: no Sex category (female): Male CHADS-VASc Score: 2 Course Orders Ordered: Discontinued Medications Aspirin (Aspirin 81 Mg Chew Tab) 324 mg PO NOW ONE Stop: 02/06/22 14:14 Last Admin: 02/06/22 14:23 Dose: Not Given Documented By: SB Thiamine HCl 200 mg/ Sodium (Chloride) 102 mls @ 408 mls/hr IV NOW ONE Stop: 02/06/22 15:46 Last Infusion: 02/06/22 16:26 Dose: 0 mls/hr Documented By: Admin: 02/06/22 15:58 Dose: 408 mls/hr Documented By: SB Sodium Chloride (Normal Saline 0.9%) 1,000 mls @ 1,000 mls/hr IV BOLUS ONE Stop: 02/06/22 17:32 Last Infusion: 02/06/22 18:03 Dose: 0 mls/hr Documented By: Admin: 02/06/22 16:37 Dose: 1,000 mls/hr Documented By: SB Reevaluation(s) Reevaluation #1: Patient continues to be in a rate controlled AFib. EKGs are nonischemic, repeat troponin is negative. CT angiogram shows consolidation vs. atelectasis Vital Signs Vital signs: Vital Signs - 8 hr 02/06/22 13:58 02/06/22 16:32 Temperature 98.6 F Pulse Rate 94 H Pulse Rate [Orthostatic Lying] 70 Pulse Rate [Orthostatic Sitting] 75 Pulse Rate [Orthostatic Standing] 100 H Respiratory Rate 22 Blood Pressure 103/58 L Blood Pressure [Orthostatic Lying] 117/77 Blood Pressure [Orthostatic Sitting] 120/75 Blood Pressure [Orthostatic Standing] 82/58 L Pulse Oximetry 97 Oxygen Delivery Method Room Air MDM - Chest Pain Lab Data Result diagrams: 02/06/22 14:34 02/06/22 14:13 Labs: Lab Results 02/06/22 02/06/22 02/06/22 Range/Units 14:04 14:13 14:25 WBC (4.5-11.0) X10^3/uL RBC (4.5-5.9) X10^6/uL Hgb (13.5-17.5) g/dL Hct (41-53) % MCV (80-100) fL MCH (26-34) PG MCHC (30-36) % RDW (11.6-14.8) % Plt Count (150-400) X10^3/uL Neut % (Auto) (50-75) % Lymph % (Auto) (25-40) % Culberson % (Auto) (3-14) % Eos % (Auto) (2-4) % Baso % (Auto) (0-2) % Neut # (Auto) (6725-8531) /uL Lymph # (Auto) (3173-2302) /uL Culberson # (Auto) (0-900) /uL Eos # (Auto) (0-450) /uL Baso # (Auto) (0-100) /uL PT 12.7 (10.1-12.7) SECONDS INR 1.1 (0.9-1.3) APTT 23 L (26-36) SECONDS Sodium 137 (137-145) mmol/L Potassium 4.1 (3.4-5.1) mmol/L Chloride 109 H (98-107) mmol/L Carbon Dioxide 17 L (22-32) mmol/L BUN 19 (9-20) mg/dL Creatinine 0.93 (0.66-1.25) mg/dL Estimated GFR > 60 (>60) mL/min BUN/Creatinine Ratio 20.4 (6-22) Glucose 211 H (80-110) mg/dL Calcium 8.1 L (8.4-10.2) mg/dL Magnesium 1.5 L (1.6-2.3) mg/dL Total Bilirubin 0.5 (0.2-1.3) mg/dL AST 40 (17-59) IU/L ALT 27 (<50) IU/L Alkaline Phosphatase 61 (38-126) U/L Total Creatine Kinase 63 (55-170) U/L CK-MB (CK-2) TNP CK-MB (CK-2) Rel Index TNP Troponin I < 0.012 (0.01-0.034) ng/mL Total Protein 5.9 L (6.3-8.2) g/dL Albumin 3.5 (3.5-5.0) g/dL Globulin 2.4 (1.7-4.1) g/dL Albumin/Globulin Ratio 1.5 (1.0-2.8) Lipase 100 (23-300) U/L SARS-CoV-2 (PCR) Negative (Negative) 02/06/22 02/06/22 Range/Units 14:34 18:25 WBC 5.4 (4.5-11.0) X10^3/uL RBC 2.98 L (4.5-5.9) X10^6/uL Hgb 10.3 L (13.5-17.5) g/dL Hct 31.3 L (41-53) % MCV 105.1 H (80-100) fL MCH 34.6 H (26-34) PG MCHC 32.9 (30-36) % RDW 14.2 (11.6-14.8) % Plt Count 175 (150-400) X10^3/uL Neut % (Auto) 73.3 (50-75) % Lymph % (Auto) 14.4 L (25-40) % Culberson % (Auto) 11.2 (3-14) % Eos % (Auto) 0.3 L (2-4) % Baso % (Auto) 0.8 (0-2) % Neut # (Auto) 3900 (0358-3732) /uL Lymph # (Auto) 800 L (9797-8624) /uL Culberson # (Auto) 600 (0-900) /uL Eos # (Auto) 0 (0-450) /uL Baso # (Auto) 0 (0-100) /uL PT (10.1-12.7) SECONDS INR (0.9-1.3) APTT (26-36) SECONDS Sodium (137-145) mmol/L Potassium (3.4-5.1) mmol/L Chloride (98-107) mmol/L Carbon Dioxide (22-32) mmol/L BUN (9-20) mg/dL Creatinine (0.66-1.25) mg/dL Estimated GFR (>60) mL/min BUN/Creatinine Ratio (6-22) Glucose (80-110) mg/dL Calcium (8.4-10.2) mg/dL Magnesium (1.6-2.3) mg/dL Total Bilirubin (0.2-1.3) mg/dL AST (17-59) IU/L ALT (<50) IU/L Alkaline Phosphatase (38-126) U/L Total Creatine Kinase 56 (55-170) U/L CK-MB (CK-2) TNP CK-MB (CK-2) Rel Index TNP Troponin I < 0.012 (0.01-0.034) ng/mL Total Protein (6.3-8.2) g/dL Albumin (3.5-5.0) g/dL Globulin (1.7-4.1) g/dL Albumin/Globulin Ratio (1.0-2.8) Lipase (23-300) U/L SARS-CoV-2 (PCR) (Negative) MDM Narrative Medical decision making narrative: [76-year-old male with history AFib, currently not treated with anticoagulation presents with rapid AFib that resolved prior to his arrival.] Multiple etiologies for patient's symptoms considered including, but not limited to: [Rapid AFib, cardiac ischemia, pulmonary embolism versus other] Prior Charts reviewed: Including prior emergency department notes from June, July of this year Labs reviewed and interpreted by myself: No significant biochemical abnormalities, troponin x2 negative. No elevated white blood count Imaging reviewed: Chest x-ray without obvious focal infiltrate, though interstitial prominence is noted. CT angiogram notes no central PE, but does demonstrate bibasilar atelectasis versus infiltrate. Patient reports no fever, productive cough or ongoing shortness of breath. He has no elevation of white blood cell count. He is a former smoker with extensive history of alcohol and is at increased risk for atypical pneumonia hence decision to treat. I have had extensive discussion with this patient regarding the risk of stroke in the setting of AFib and strongly recommend anticoagulation. He states that he will think about it, he is given a prescription for Eliquis. He states he understands the risks and benefits but is concerned that he will bleed significantly without inability to fix it. Patient's symptoms improved over duration of stay with above-stated therapies. Findings and discharge diagnosis discussed with patient/family followed by verbalization of understanding Return precautions discussed with patient/family whom verbalize understanding of diagnosis and plan Discharge Plan Departure Patient Disposition: Home Clinical Impression: Atrial fibrillation with RVR, Atypical pneumonia Instructions: DI for Atrial Fibrillation, DI for Atypical Pneumonia Activity Restrictions/Additional Instructions: *You have been diagnosed with [atrial fibrillation] *What to do: *Please continue to take your regular medications as directed. [ ] New medication prescriptions sent to your pharmacy: [ ] [x ] New medication written as a paper prescription [ ] No new medications given *Please follow up with your primary care provider in 2-3 days, call for an appointment. Let them know you were seen in the Emergency Department and that we ask that you be seen in follow up. We will electronically transmit a record of today's note if your PCP is in our system *If you do not have a primary care provider please contact the [facility] Resource line at [phone]. They will ask some questions about your medical history and help get you set up with a doctor in the community. *Return to Emergency Department if you should have any new, worsening or concerning symptoms, such as [fever greater than 101 F, shaking chills, worsening pain, persistent vomiting or other bothersome symptoms] Prescriptions: New Eliquis 5 mg tablet 5 mg PO BID Qty: 60 0RF doxycycline hyclate 100 mg tablet 100 mg PO BID Qty: 20 0RF No Action metoprolol succinate 25 mg tablet extended release 24 hr 25 mg PO DAILY Qty: 30 0RF Label Comments: Pt reports taking every other day, at best. Also stated only takes 2 pills, since it RX'd. furosemide 20 mg tablet 10 mg PO QAM Qty: 45 1RF Referrals: Cris Reyna MD [Primary Care Provider] - Visit Report Forms: Patient Portal/API
--- NOTE | 2022-02-06 15:52 | CM.SWNOTE ---
Patient is a 76 yo male in [place] ED for possible AFIB. [facility] Consult due to pt's long hx of ETOH and need for care. Unclear if pt will need to be admitted for medical reasons or will d/c from hospital but pt not a very good historian. SW has worked with pt many times over the past few years and pt has struggled with medication compliance, typically has difficulty answering the door for HH agencies, has been admitted to SNF before but continues to use ETOH regularly. Due to triage needs, [facility] cannot meet bedside with pt right now but called pt's spouse who confirms they are and going through divorce but she is still quite involved and aware that pt was coming to the ED and that pt recently had a coffey with alcohol. 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 Spouse states pt's brother Alexander has been a support but lives in [place] and just got a new job [employer] and not as much time to assist pt as before but has plans to come up to visit pt tomorrow [facility] 02/07/22 already and she will update him on pt. Spouse states for transport home, typically pt has his wallet and credit card and the taxi from [employer] has a hx of providing transport home for pt from the hospital private pay and recommends trying this option first. Otherwise he has one local supportive friend Gary Escobar who pt mostly calls now when he needs a ride or needs something but he typically will provide transport for pt. ERNIE updated ED RN and they graciously will follow up on transport if pt does not need to be admitted to the hospital. Briefly discussed possible approach on changing POLST to DNR/DNI as pt very non compliant and does not seem to be interested in much but feel pt may not be at this point yet. JEROME Gonsalves
[2022-02-06] MEDS: THIAMINE 200 MG in SODIUM CHLORIDE 0.9% 100 ML 408 MG IV (15:58)
--- NOTE | 2022-02-06 16:15 | PC.NURSE ---
Addendum entered by Gely Heredia R.N. 02/07/22 00:05: [id number]: Provider made aware of positive orthostatics. Original Note: JEROME Parks calls this RN as [employer] is leaving work and unable to see pt. Pt is known to JEROME Parks. [employer] states he does have meals on wheels, does have living arrangements, does have access to medications. Pt has prior non-compliance with home health. Pt does have a brother who lives in area and will be coming to visit tomorrow per [employer]. PT also has friend who is able to be contacted and has provided rides in past. Provider aware.
[2022-02-06 16:32] VITALS: BP 117/77; BP 120/75; BP 82/58; PULSE 100; PULSE 70; PULSE 75
[2022-02-06] MEDS: SODIUM CHLORIDE 0.9% 1,000 ML 1000 ML IV (16:37)
--- NOTE | 2022-02-06 17:37 | PC.NURSE ---
Pt check. Pt reports being more short of breath with increasing chest tightness. RT called for repeat EKG and eval. Provider aware.
--- NOTE | 2022-02-06 17:55 | DI.CT.S_ITS ---
PROCEDURE: CT ANGIO CHEST PE PROTOCOL INDICATIONS: chest pain, SOB TECHNIQUE: After the administration of intravenous contrast, 2 mm thick sections acquired from the pulmonary apices to the posterior costophrenic angles. 3-dimensional maximum intensity projection (MIP) coronal and sagittal reformats were then acquired through the thorax. For radiation dose reduction, the following was used: automated exposure control, adjustment of mA and/or kV according to patient size. COMPARISON: [facility], CT, CT CHEST ABDOMEN PELVIS WITH CONTRAST, 06/28/2021, 19:57. [facility], CT, CT ANGIO CHEST PE PROTOCOL, 09/04/2020, 17:23. FINDINGS: Image quality: Excellent. Pulmonary arteries: Pulmonary arteries are normal in size, and demonstrate no intraluminal filling defects to suggest central pulmonary embolism. Lungs and pleura: Patchy bibasilar atelectasis and consolidation, left greater than right. No pleural effusions or pneumothorax. Central and peripheral airways are patent. Mediastinum: Cardiomegaly with biatrial enlargement. Severe coronary artery calcifications. No mediastinal or hilar adenopathy. Thoracic aorta is normal in caliber and enhancement. Esophagus is normal in caliber, without hiatal hernia. Bones and chest wall: Numerous compression fractures. Moderate T2 compression is chronic. Mild T6 is chronic. Moderate T7 is chronic. A mild T10 compression was not present on the previous study, and may be subacute. T12 and L1 compressions are chronic. No suspicious bony lesions. Ribs and thoracic spine appear intact throughout. Thyroid gland is grossly unremarkable.. No axillary or supraclavicular adenopathy. Abdomen: Visualized upper abdominal solid organs appear normal in the early arterial phase of enhancement. IMPRESSION: 1. No evidence acute pulmonary emboli. 2. Cardiomegaly with biatrial enlargement. Severe coronary artery calcifications. 3. Bibasilar patchy consolidation and atelectasis. 4. Severe osteoporosis. Numerous chronic compressions and interval T10 compression, which may be subacute. Dictated by: Flex Garcia M.D. on 02/06/2022 at 19:29 Approved by: Flex Garcia M.D. on 02/06/2022 at 19:36
[2022-02-06 18:58] LABS: Creatine Kinase 56 U/L (55-170)
[2022-02-06 19:11] LABS: Troponin I < 0.012 ng/mL (0.01-0.034)
[2022-02-06 21:35] VITALS: BP 144/66; PULSE 95; RESP 20; O2SAT 94
== END 2022-02-06 21:37 | disposition home or self-care (01) ==
PROVIDERS: Emergency Provider Emergency Medicine; PCP Student in an Organized Health Care Education/Training Program
DX: I48.20 Chronic atrial fibrillation, unspecified (principal); J18.9 Pneumonia, unspecified organism; R07.9 Chest pain, unspecified; Z79.01 Long term (current) use of anticoagulants; Z79.899 Other long term (current) drug therapy; Z20.822 Contact with and (suspected) exposure to COVID-19
CPT/HCPCS: 36415; 71045; 71275; 80053; 82550; 83690; 83735; 84484; 85025; 85610; 85730; 87635; 93005; 96360; 99284; C9803; Q9967

== ENCOUNTER 2022-03-29 17:26 | Emergency (ER) | payer MEDICARE, OTHER, SELFPAY ==
[2019-07-03 21:02] VITALS: PULSE 98; RESP 16; O2SAT 98
[2021-07-23 03:14] VITALS: BMI 24.3
[2022-03-29] VITALS (9 sets, daily range): BP systolic 110–126; BP diastolic 70–82; PULSE 79–96; RESP 16–24; TEMP 37; O2SAT 93–98; BMI 24.3
--- NOTE | 2022-03-29 17:36 | DI.RAD.S_ITS ---
PROCEDURE: XR CHEST 1V INDICATIONS: chest pain TECHNIQUE: One view of the chest was acquired. COMPARISON: [facility], CR, XR CHEST 1V, 02/06/2022, 14:11. FINDINGS: Surgical changes and devices: None. Lungs and pleura: Lungs are clear. No pleural effusions or pneumothorax. Mediastinum: Mediastinal contours appear normal. Heart size is normal. Bones and chest wall: No suspicious bony lesions. Overlying soft tissues appear unremarkable. IMPRESSION: No acute process. Dictated by: Luisito Tan M.D. on 03/29/2022 at 18:10 Approved by: Luisito Tan M.D. on 03/29/2022 at 18:11
--- NOTE | 2022-03-29 17:42 | PC.NURSE ---
now present at bedside and she reports that [facility] and his last alcohol drink was yesterday. RN at bedside. Chino MCCURDY aware.
--- NOTE | 2022-03-29 17:49 | DI.CT.S_ITS ---
PROCEDURE: CT HEAD/BRAIN WO CON INDICATIONS: fall TECHNIQUE: Noncontrast 4.5 mm thick angled axial sections acquired from the foramen magnum to the vertex, with coronal and sagittal reformats. For radiation dose reduction, the following was used: automated exposure control, adjustment of mA and/or kV according to patient size. COMPARISON: [facility], CT, CT HEAD/BRAIN WO CON, 11/07/2020, 17:22. FINDINGS: Image quality: Excellent. CSF spaces: Basal cisterns are patent. No extra-axial fluid collections. The ventricles are symmetric in size and shape. Brain: No intracranial bleeds or masses. There is cerebral volume loss for age, with resultant ventricular and sulcal prominence. There are periventricular and deep white matter chronic small vessel ischemic changes. There is intracranial internal carotid artery atherosclerosis. Skull and face: Calvarium and visualized facial bones appear intact, without suspicious lesions. Sinuses: Visualized sinuses and mastoids are clear. IMPRESSION: No acute intracranial abnormality. Dictated by: Luisito Tan M.D. on 03/29/2022 at 18:25 Approved by: Luisito Tan M.D. on 03/29/2022 at 18:26
[2022-03-29 18:09] LABS: INR 1.1 (0.9-1.3); Prothrombin Time 12.7 SECONDS (10.1-12.7)
[2022-03-29 18:11] LABS: PTT Partial Thromboplastin Tim 27 SECONDS (26-36)
[2022-03-29] MEDS: ASPIRIN 81 MG CHEW TAB 324 MG PO (18:16)
--- NOTE | 2022-03-29 18:20 | ED_ITS ---
HPI - Arrhythmia/Palpitations <Chino Dalton PA-C - Last Filed: 03/29/22 20:24> General Chief Complaint: Arrhythmia/Palpitations Stated Complaint: a-fib/passed out this morning Time Seen by Provider: 03/29/22 17:36 Source: patient Mode of arrival: Wheelchair History of Present Illness HPI narrative: 76-year-old male with past medical history AFib, alcohol use disorder, alcohol withdrawal presents to the ED with 2 days of palpitations from AFib. Patient states that he experiences AFib on and off, however it has been prolonged for 2 days which is longer than normal for him. Patient endorses palpitations, feeli ng uneasy. Patient is accompanied by his . Patient also appears somewhat confused, stated that he fell when he went to see the doctor this morning. Patient's who was present, clarified that there was no doctor's appointment today and that she is not aware of him falling earlier this morning. Patient's did state that he suffered a minor fall just prior to arrival into the ED. Patient was walking down the stairs, slipped on the last stair, since he was feeling weak. Unsure if he hit his head. There was no loss of consciousness. Patient's states that he was unable to get up, she called an assist to get patient into her car so she could bring him to the ED. patient's states that his last drink was last night, however patient recalls that his last drink was last Monday. Patient does not appear oriented to the day of the week. Patient's states that he has been having short-term memory issues for the last several years. It is unclear if patient had any seizures in the last day or 2. Patient's states he primarily drinks hard liquor, when he runs out he resorts to wine or beer. However, a couple of days later he goes back to buying are liquor. Patient's states that his mental state is much clear when he is not drinking hard liquor. Patient denies fever, chills, chest pain, shortness of breath, nausea, vomiting, abdominal pain, dysuria, lightheadedness, dizziness, syncope. Patient was recommended to take Eliquis for the AFib, [facility] confirms today that he is not taking the Eliquis. It is unclear if patient is compliant with metoprolol or furosemide. Related Data Previous Rx's Medication Instructions Recorded metoprolol succinate 25 mg 25 mg PO DAILY #30 tabs 06/08/21 tablet,extended release 24 hr furosemide 20 mg tablet 10 mg PO QAM #45 tabs 07/24/21 furosemide 40 mg tablet (Lasix) 40 mg PO QAM #30 tabs 03/29/22 Allergies Allergy/AdvReac Type Severity Reaction Status Date / Time amoxicillin [AMOXICILLIN] Allergy Severe SWOLLEN JAW Verified 03/29/22 17:41 clindamycin [CLINDAMYCIN] AdvReac Severe C-DIFF Verified 03/29/22 17:41 Review of Systems <Chino Dalton PA-C - Last Filed: 03/29/22 20:24> Review of Systems ROS Unobtainable: All systems reviewed & are unremarkable except as noted in HPI and below Constitutional Constitutional: Denies chills, Denies fatigue, Denies fever(s), Denies frequent falls, Reports lethargy, Reports poor appetite and Reports weakness Eyes Eyes: Denies change in vision, Denies eye discharge, Denies irritation and Denies loss of vision ENT Ears, Nose, Mouth, and Throat: Denies change in voice, Denies dizziness, Reports neck pain, Denies sore throat and Denies throat swelling Cardiovascular Cardiovascular: Denies chest pain, Reports irregular heart rhythm, Denies lightheadedness, Denies palpitations, Denies dyspnea, Denies dyspnea on exertion and Denies orthopnea Respiratory Respiratory: Denies cough, Denies dyspnea, Denies dyspnea on exertion and Denies wheezing Gastrointestinal Gastrointestinal: Denies abdominal pain, Denies change in bowel habits, Denies d iarrhea, Denies nausea and Denies vomiting Genitourinary Genitourinary: Denies hematuria, Denies flank pain, Denies urinary incontinence and Denies urinary urgency Musculoskeletal Musculoskeletal: Denies back pain, Denies muscle weakness, Reports neck pain, Denies numbness and Denies tingling Integumentary/Breasts Skin/Breast: Denies pruritus, Denies erythema, Denies rash and Denies wounds Neurologic Neurologic: Denies behavioral changes, Reports confusion, Denies dizziness, Denies frequent falls, Denies loss of vision, Reports memory loss, Denies numbness, Denies tingling and Reports weakness Psychiatric Psychiatric: Denies anxiety, Denies behavioral changes, Reports confusion, Denies depression, Reports memory loss, Denies homicidal ideation and Denies suicidal ideation Endocrine Endocrine: Denies fatigue, Denies flushing and Denies palpitations Hematologic/Lymphatic Hematologic/Lymphatic: Denies easy bruising Allergic/Immunologic Allergic/Immunologic: Denies urticaria, Denies throat swelling and Denies wheezing Patient History <Chino Dalton PA-C - Last Filed: 03/29/22 20:24> Medical History Alcohol abuse Alcohol withdrawal Alcohol withdrawal delirium Anemia, chronic disease Atrial fibrillation BPH w urinary obs/LUTS Cardiomyopathy Former smoker Gout History of adenomatous polyp of colon HTN (hypertension) Mixed hyperlipidemia Surgical History History of percutaneous endoscopic gastrostomy (~2019) Family History Mother Lung cancer Sister Rheumatoid arthritis Social History marital status: household members: none occupational status: previously employed Smoking Status: Former smoker alcohol intake: current substance use type: does not use Smoking Status: Former smoker alcohol intake frequency: 3 or more drinks per day Alcohol type: beer, wine and hard liquor Substance Use Type: does not use Exam <Chino Dalton PA-C - Last Filed: 03/29/22 20:24> Narrative Exam Narrative: Const General:?cooperative, healthy appearing and comfortable [facility] Head:?normal to inspection Ears:?hearing grossly normal bilaterally Nose:?external nose normal Face and sinus:?normal facial exam and sinuses nontender Mouth:?oral mucosae normal Throat:?posterior oropharynx normal Eyes General:?appearance normal, both eyes and all related structures Neck Neck:?normal visual inspection and no lymphadenopathy noted Resp Effort & Inspection:?normal respiratory effort Auscultation:?clear to auscultation bilaterally Cardio Rate:?regular rate Rhythm:?afib Musculoskeletal Tenderness to palpation of right-sided, posterolateral ribs Neuro General:?patient alert, patient awake and patient oriented x3; CIWA score 9 on inital exam Initial Vital Signs Initial Vital Signs: Vital Signs Temperature 98.6 F 03/29/22 17:29 Pulse Rate 96 H 03/29/22 17:29 Respiratory Rate 20 03/29/22 17:29 Blood Pressure 114/70 03/29/22 17:29 Pulse Oximetry 93 03/29/22 17:29 Oxygen Delivery Method 03/29/22 17:29 <Master Medina DO - Last Filed: 03/29/22 22:12> Initial Vital Signs Initial Vital Signs: Vital Signs Temperature 98.6 F 03/29/22 17:29 Pulse Rate 96 H 03/29/22 17:29 Respiratory Rate 20 03/29/22 17:29 Blood Pressure 114/70 03/29/22 17:29 Pulse Oximetry 93 03/29/22 17:29 Oxygen Delivery Method 03/29/22 17:29 Course <Chino Dalton PA-C - Last Filed: 03/29/22 20:24> Orders Ordered: ED Orders 03/29/22 17:35 BNP [NT-proBNP (BNP-Adult 18+)] Stat Complete Blood Count AUTO DIFF Stat Comprehensive Metabolic Panel Stat Ethanol (ETOH) Stat Lipase Stat Magnesium Stat Partial Thromboplastin Time Stat Prothrombin Time INR Stat Troponin & CK Cardiac Panel Stat 03/29/22 17:36 XR chest 1V Stat EKG-12 Lead Stat 03/29/22 17:49 CT head/brain wo con Stat 03/29/22 18:36 Urine Microscopic Stat 03/29/22 18:42 CT chest wo con Stat 03/29/22 18:43 CT cervical spine wo con Stat Discontinued Medications Aspirin (Aspirin 81 Mg Chew Tab) 324 mg PO NOW ONE Stop: 03/29/22 17:37 Last Admin: 03/29/22 18:16 Dose: 324 mg Documented By: KADE Furosemide (Furosemide 40 Mg/4 Ml Vial) 40 mg IV NOW ONE Stop: 03/29/22 19:56 Last Admin: 03/29/22 20:11 Dose: 40 mg Documented By: SAVANNA Sodium Chloride (Normal Saline 0.9%) 1,000 mls @ 1,000 mls/hr IV BOLUS ONE Stop: 03/29/22 19:20 Last Infusion: 03/29/22 20:14 Dose: 0 mls/hr Documented By: Admin: 03/29/22 18:33 Dose: 1,000 mls/hr Documented By: KADE Lorazepam (Lorazepam 2 Mg/Ml Inj) 1 mg IV NOW ONE Stop: 03/29/22 18:21 Last Admin: 03/29/22 18:32 Dose: 1 mg Documented By: KADE Vital Signs Vital signs: Vital Signs - 8 hr 03/29/22 17:29 03/29/22 17:32 03/29/22 17:55 Temperature 98.6 F Pulse Rate 96 H 88 Respiratory Rate 20 21 Blood Pressure 114/70 114/70 Pulse Oximetry 93 96 Oxygen Delivery Method Room Air Room Air 03/29/22 17:55 03/29/22 18:00 03/29/22 18:00 Temperature Pulse Rate 88 Respiratory Rate 21 Blood Pressure 110/79 126/82 Pulse Oximetry 98 Oxygen Delivery Method Room Air 03/29/22 18:30 03/29/22 19:00 03/29/22 19:30 Temperature Pulse Rate 89 85 80 Respiratory Rate 24 21 16 Blood Pressure Pulse Oximetry 97 96 Oxygen Delivery Method Room Air 03/29/22 20:00 03/29/22 20:36 Temperature Pulse Rate 79 Respiratory Rate 19 Blood Pressure 124/70 Pulse Oximetry 97 Oxygen Delivery Method <Master Medina, - Last Filed: 03/29/22 22:12> Orders Ordered: ED Orders 03/29/22 17:35 BNP [NT-proBNP (BNP-Adult 18+)] Stat Complete Blood Count AUTO DIFF Stat Comprehensive Metabolic Panel Stat Ethanol (ETOH) Stat Lipase Stat Magnesium Stat Partial Thromboplastin Time Stat Prothrombin Time INR Stat Troponin & CK Cardiac Panel Stat 03/29/22 17:36 XR chest 1V Stat EKG-12 Lead Stat 03/29/22 17:49 CT head/brain wo con Stat 03/29/22 18:36 Urine Microscopic Stat 03/29/22 18:42 CT chest wo con Stat 03/29/22 18:43 CT cervical spine wo con Stat Discontinued Medications Aspirin (Aspirin 81 Mg Chew Tab) 324 mg PO NOW ONE Stop: 03/29/22 17:37 Last Admin: 03/29/22 18:16 Dose: 324 mg Documented By: KADE Furosemide (Furosemide 40 Mg/4 Ml Vial) 40 mg IV NOW ONE Stop: 03/29/22 19:56 Last Admin: 03/29/22 20:11 Dose: 40 mg Documented By: SAVANNA Sodium Chloride (Normal Saline 0.9%) 1,000 mls @ 1,000 mls/hr IV BOLUS ONE Stop: 03/29/22 19:20 Last Infusion: 03/29/22 20:14 Dose: 0 mls/hr Documented By: Admin: 03/29/22 18:33 Dose: 1,000 mls/hr Documented By: KADE Lorazepam (Lorazepam 2 Mg/Ml Inj) 1 mg IV NOW ONE Stop: 03/29/22 18:21 Last Admin: 03/29/22 18:32 Dose: 1 mg Documented By: KADE Vital Signs Vital signs: Vital Signs - 8 hr 03/29/22 17:29 03/29/22 17:32 03/29/22 17:55 Temperature 98.6 F Pulse Rate 96 H 88 Respiratory Rate 20 21 Blood Pressure 114/70 114/70 Pulse Oximetry 93 96 Oxygen Delivery Method Room Air Room Air 03/29/22 17:55 03/29/22 18:00 03/29/22 18:00 Temperature Pulse Rate 88 Respiratory Rate 21 Blood Pressure 110/79 126/82 Pulse Oximetry 98 Oxygen Delivery Method Room Air 03/29/22 18:30 03/29/22 19:00 03/29/22 19:30 Temperature Pulse Rate 89 85 80 Respiratory Rate 24 21 16 Blood Pressure Pulse Oximetry 97 96 Oxygen Delivery Method Room Air 03/29/22 20:00 03/29/22 20:36 Temperature Pulse Rate 79 Respiratory Rate 19 Blood Pressure 124/70 Pulse Oximetry 97 Oxygen Delivery Method MDM - Arrhythmia/Palpitations <Chino Dalton PA-C - Last Filed: 03/29/22 20:24> Lab Data 03/29/22 17:35 03/29/22 17:35 Labs: Lab Results 03/29/22 03/29/22 03/29/22 Range/Units 17:35 17:35 17:35 WBC 7.4 (4.5-11.0) X10^3/uL RBC 3.05 L (4.5-5.9) X10^6/uL Hgb 11.0 L (13.5-17.5) g/dL Hct 31.4 L (41-53) % MCV 103.2 H (80-100) fL MCH 36.0 H (26-34) PG MCHC 34.9 (30-36) % RDW 13.7 (11.6-14.8) % Plt Count 107 L (150-400) X10^3/uL Neut % (Auto) 84.3 H (50-75) % Lymph % (Auto) 7.1 L (25-40) % [place] % (Auto) 8.1 (3-14) % Eos % (Auto) 0.1 L (2-4) % Baso % (Auto) 0.4 (0-2) % Neut # (Auto) 6200 (0515-2372) /uL Lymph # (Auto) 500 L (7556-1181) /uL [place] # (Auto) 600 (0-900) /uL Eos # (Auto) 0 (0-450) /uL Baso # (Auto) 0 (0-100) /uL PT 12.7 (10.1-12.7) SECONDS INR 1.1 (0.9-1.3) APTT 27 (26-36) SECONDS Sodium 130 L (137-145) mmol/L Potassium 4.8 (3.4-5.1) mmol/L Chloride 97 L (98-107) mmol/L Carbon Dioxide 24 (22-32) mmol/L BUN 16 (9-20) mg/dL Creatinine 1.05 (0.66-1.25) mg/dL Estimated GFR > 60 (>60) mL/min BUN/Creatinine Ratio 15.2 (6-22) Glucose 100 (80-110) mg/dL Calcium 8.7 (8.4-10.2) mg/dL Magnesium 1.2 L (1.6-2.3) mg/dL Total Bilirubin 1.3 (0.2-1.3) mg/dL AST 57 (17-59) IU/L ALT 40 (<50) IU/L Alkaline Phosphatase 67 (38-126) U/L Total Creatine Kinase 144 (55-170) U/L CK-MB (CK-2) 2.54 H (<2.37) ng/mL CK-MB (CK-2) Rel Index 1.8 (1.5-5.0) % Troponin I 0.013 (0.01-0.034) ng/mL NT-Pro-B Natriuret Pep (<450) pg/mL Total Protein 6.6 (6.3-8.2) g/dL Albumin 4.1 (3.5-5.0) g/dL Globulin 2.5 (1.7-4.1) g/dL Albumin/Globulin Ratio 1.6 (1.0-2.8) Lipase 127 (23-300) U/L Urine RBC (0-5/HPF) Urine WBC (0-5/HPF) Urine Bacteria (None) Ur Culture Indicated? Ethyl Alcohol ( - 10) mg/dL 03/29/22 03/29/22 03/29/22 Range/Units 17:35 17:35 18:36 WBC (4.5-11.0) X10^3/uL RBC (4.5-5.9) X10^6/uL Hgb (13.5-17.5) g/dL Hct (41-53) % MCV (80-100) fL MCH (26-34) PG MCHC (30-36) % RDW (11.6-14.8) % Plt Count (150-400) X10^3/uL Neut % (Auto) (50-75) % Lymph % (Auto) (25-40) % [place] % (Auto) (3-14) % Eos % (Auto) (2-4) % Baso % (Auto) (0-2) % Neut # (Auto) (3456-8241) /uL Lymph # (Auto) (0565-9126) /uL [place] # (Auto) (0-900) /uL Eos # (Auto) (0-450) /uL Baso # (Auto) (0-100) /uL PT (10.1-12.7) SECONDS INR (0.9-1.3) APTT (26-36) SECONDS Sodium (137-145) mmol/L Potassium (3.4-5.1) mmol/L Chloride (98-107) mmol/L Carbon Dioxide (22-32) mmol/L BUN (9-20) mg/dL Creatinine (0.66-1.25) mg/dL Estimated GFR (>60) mL/min BUN/Creatinine Ratio (6-22) Glucose (80-110) mg/dL Calcium (8.4-10.2) mg/dL Magnesium (1.6-2.3) mg/dL Total Bilirubin (0.2-1.3) mg/dL AST (17-59) IU/L ALT (<50) IU/L Alkaline Phosphatase (38-126) U/L Total Creatine Kinase (55-170) U/L CK-MB (CK-2) (<2.37) ng/mL CK-MB (CK-2) Rel Index (1.5-5.0) % Troponin I (0.01-0.034) ng/mL NT-Pro-B Natriuret Pep 5280 H (<450) pg/mL Total Protein (6.3-8.2) g/dL Albumin (3.5-5.0) g/dL Globulin (1.7-4.1) g/dL Albumin/Globulin Ratio (1.0-2.8) Lipase (23-300) U/L Urine RBC None seen (0-5/HPF) Urine WBC None seen (0-5/HPF) Urine Bacteria None seen (None) Ur Culture Indicated? Cult not indicated Ethyl Alcohol < 10 ( - 10) mg/dL Urine Dip Bedside Urine Glucose Negative Bedside Urine Bilirubin - Negative Bedside Urine Ketone - Negative Urine Specific [place] 1.010 Bedside Urine Occult Blood +/- Bedside Urine pH 6.5 Bedside Urine Protein - Negative Bedside Urine Urobilinogen - Negative Bedside Urine Nitrite - Negative Bedside Urine Leukocytes - Negative Esterase MDM Narrative Medical decision making narrative: 76-year-old male with past medical history AFib, alcohol use disorder, alcohol withdrawal presents to the ED with 2 days of palpitations from AFib. Concern for alcohol withdrawal versus alcohol intoxication versus UTI versus pneumonia versus ACS versus CHF exacerbation versus dehydration versus dementia versus fracture/dislocation versus intracranial hemorrhage versus other. Will obtain labs, UA, EKG, chest x-ray, troponin, ETOH, CT head, CT C-spine, CT chest. Patient is in AFib in the ED, however is rate is controlled. NT proBNP elevated to 50-80. Patient was given a dose of Lasix. 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 Patient had mild alcohol withdrawal with a CIWA score of 9 on presentation to the ED. Patient was given a dose of Ativan, following which his withdrawal symptoms greatly improved. Patient states that he does not feel like he is in AFib anymore. EKG showed AFib without RVR and no acute ST-T changes. CT chest shows possible pneumonia, however there is no clinical correlation with patient's symptoms. Most likely atelectasis versus pneumonia. Rest of the workup was unremarkable. Patient was counseled on possibility of detox, dangers of alcohol withdrawal. Patient verbalizes understanding and chooses to go home hand will drink again if he is at risk of going into withdrawal. Patient agrees to take the Lasix and metoprolol daily. Patient appears well and there is no indication to hospitalize him today. ED return precautions were discussed with patient and patient's . They verbalized understanding. Medical records reviewed: Yes <Master Medina, - Last Filed: 03/29/22 22:12> Lab Data Labs: Lab Results 03/29/22 03/29/22 03/29/22 Range/Units 17:35 17:35 17:35 WBC 7.4 (4.5-11.0) X10^3/uL RBC 3.05 L (4.5-5.9) X10^6/uL Hgb 11.0 L (13.5-17.5) g/dL Hct 31.4 L (41-53) % MCV 103.2 H (80-100) fL MCH 36.0 H (26-34) PG MCHC 34.9 (30-36) % RDW 13.7 (11.6-14.8) % Plt Count 107 L (150-400) X10^3/uL Neut % (Auto) 84.3 H (50-75) % Lymph % (Auto) 7.1 L (25-40) % [place] % (Auto) 8.1 (3-14) % Eos % (Auto) 0.1 L (2-4) % Baso % (Auto) 0.4 (0-2) % Neut # (Auto) 6200 (1556-5409) /uL Lymph # (Auto) 500 L (5601-1668) /uL [place] # (Auto) 600 (0-900) /uL Eos # (Auto) 0 (0-450) /uL Baso # (Auto) 0 (0-100) /uL PT 12.7 (10.1-12.7) SECONDS INR 1.1 (0.9-1.3) APTT 27 (26-36) SECONDS Sodium 130 L (137-145) mmol/L Potassium 4.8 (3.4-5.1) mmol/L Chloride 97 L (98-107) mmol/L Carbon Dioxide 24 (22-32) mmol/L BUN 16 (9-20) mg/dL Creatinine 1.05 (0.66-1.25) mg/dL Estimated GFR > 60 (>60) mL/min BUN/Creatinine Ratio 15.2 (6-22) Glucose 100 (80-110) mg/dL Calcium 8.7 (8.4-10.2) mg/dL Magnesium 1.2 L (1.6-2.3) mg/dL Total Bilirubin 1.3 (0.2-1.3) mg/dL AST 57 (17-59) IU/L ALT 40 (<50) IU/L Alkaline Phosphatase 67 (38-126) U/L Total Creatine Kinase 144 (55-170) U/L CK-MB (CK-2) 2.54 H (<2.37) ng/mL CK-MB (CK-2) Rel Index 1.8 (1.5-5.0) % Troponin I 0.013 (0.01-0.034) ng/mL NT-Pro-B Natriuret Pep (<450) pg/mL Total Protein 6.6 (6.3-8.2) g/dL Albumin 4.1 (3.5-5.0) g/dL Globulin 2.5 (1.7-4.1) g/dL Albumin/Globulin Ratio 1.6 (1.0-2.8) Lipase 127 (23-300) U/L Urine RBC (0-5/HPF) Urine WBC (0-5/HPF) Urine Bacteria (None) Ur Culture Indicated? Ethyl Alcohol ( - 10) mg/dL 03/29/22 03/29/22 03/29/22 Range/Units 17:35 17:35 18:36 WBC (4.5-11.0) X10^3/uL RBC (4.5-5.9) X10^6/uL Hgb (13.5-17.5) g/dL Hct (41-53) % MCV (80-100) fL MCH (26-34) PG MCHC (30-36) % RDW (11.6-14.8) % Plt Count (150-400) X10^3/uL Neut % (Auto) (50-75) % Lymph % (Auto) (25-40) % [place] % (Auto) (3-14) % Eos % (Auto) (2-4) % Baso % (Auto) (0-2) % Neut # (Auto) (9374-8856) /uL Lymph # (Auto) (2601-1598) /uL [place] # (Auto) (0-900) /uL Eos # (Auto) (0-450) /uL Baso # (Auto) (0-100) /uL PT (10.1-12.7) SECONDS INR (0.9-1.3) APTT (26-36) SECONDS Sodium (137-145) mmol/L Potassium (3.4-5.1) mmol/L Chloride (98-107) mmol/L Carbon Dioxide (22-32) mmol/L BUN (9-20) mg/dL Creatinine (0.66-1.25) mg/dL Estimated GFR (>60) mL/min BUN/Creatinine Ratio (6-22) Glucose (80-110) mg/dL Calcium (8.4-10.2) mg/dL Magnesium (1.6-2.3) mg/dL Total Bilirubin (0.2-1.3) mg/dL AST (17-59) IU/L ALT (<50) IU/L Alkaline Phosphatase (38-126) U/L Total Creatine Kinase (55-170) U/L CK-MB (CK-2) (<2.37) ng/mL CK-MB (CK-2) Rel Index (1.5-5.0) % Troponin I (0.01-0.034) ng/mL NT-Pro-B Natriuret Pep 5280 H (<450) pg/mL Total Protein (6.3-8.2) g/dL Albumin (3.5-5.0) g/dL Globulin (1.7-4.1) g/dL Albumin/Globulin Ratio (1.0-2.8) Lipase (23-300) U/L Urine RBC None seen (0-5/HPF) Urine WBC None seen (0-5/HPF) Urine Bacteria None seen (None) Ur Culture Indicated? Cult not indicated Ethyl Alcohol < 10 ( - 10) mg/dL Urine Dip Bedside Urine Glucose Negative Bedside Urine Bilirubin - Negative Bedside Urine Ketone - Negative Urine Specific [place] 1.010 Bedside Urine Occult Blood +/- Bedside Urine pH 6.5 Bedside Urine Protein - Negative Bedside Urine Urobilinogen - Negative Bedside Urine Nitrite - Negative Bedside Urine Leukocytes - Negative Esterase Discharge Plan Departure Patient Disposition: Home Clinical Impression: Atrial fibrillation, CHF exacerbation, Alcohol withdrawal Instructions: DI for Heart Failure, DI for Atrial Fibrillation, Alcohol Withdrawal Activity Restrictions/Additional Instructions: You were evaluated in the ED today for palpitations. Your NT proBNP was elevated, which is an indication of congestive heart failure. You were given a dose of Lasix today in the ED for it. You were also being sent home with a prescription for Lasix to take daily until you are able to see Dr. San. Please follow-up with your cash register operator Dr. San as soon as possible. You were also in mild alcohol withdrawal for which you were given a dose of Ativan. Please return to the ED if you have worsening signs of alcohol withdrawal including tremors, seizures, anxiety, agitation. Alcohol withdrawal can be dangerous and lead to serious conditions including, and Please also return to the ED if you experience any chest pain or shortness of breath. Prescriptions: New furosemide [Lasix] 40 mg tablet 40 mg PO QAM Qty: 30 0RF No Action metoprolol succinate 25 mg tablet extended release 24 hr 25 mg PO DAILY Qty: 30 0RF Label Comments: Pt reports taking every other day, at best. Also stated only takes 2 pills, since it RX'd. furosemide 20 mg tablet 10 mg PO QAM Qty: 45 1RF Referrals: Cris Reyna MD [Primary Care Provider] - Stand Alone Forms: Patient Portal/API <Master Medina, - Last Filed: 03/29/22 22:12> Cosign ED Attending Cosignature Attestation: Dr Medina Co-Sign Statement: I was available for consultation during this patient's emergency department visit. This chart is signed by myself for administrative purposes only. I did not have direct contact with this patient during this visit. They were seen independently by the APC.
[2022-03-29 18:21] LABS: Alanine Aminotransferase 40 IU/L (<50); Albumin 4.1 g/dL (3.5-5.0); Albumin Globulin Ratio 1.6 (1.0-2.8); Alkaline Phosphatase 67 U/L (38-126); Aspartate Aminotransferase 57 IU/L (17-59); BUN Creatinine Ratio 15.2 (6-22); Bilirubin Total 1.3 mg/dL (0.2-1.3); Blood Urea Nitrogen 16 mg/dL (9-20); Calcium 8.7 mg/dL (8.4-10.2); Carbon Dioxide 24 mmol/L (22-32); Chloride 97 mmol/L (98-107); Creatine Kinase 144 U/L (55-170); Estimated Glomerular Filt Rate > 60 mL/min (>60); Globulin 2.5 g/dL (1.7-4.1); Glucose 100 mg/dL (80-110); HEMOLYSIS < 15 (0-50); Lipase 127 U/L (23-300); Magnesium 1.2 mg/dL (1.6-2.3); Potassium 4.8 mmol/L (3.4-5.1); Sodium 130 mmol/L (137-145); Total Protein 6.6 g/dL (6.3-8.2)
[2022-03-29 18:22] LABS: Ethanol (ETOH) < 10 mg/dL
[2022-03-29 18:31] LABS: Troponin I 0.013 ng/mL (0.01-0.034)
[2022-03-29] MEDS: LORazepam 2 MG/ML INJ 1 MG IV (18:32)
[2022-03-29] MEDS: SODIUM CHLORIDE 0.9% 1,000 ML 1000 ML IV (18:33)
[2022-03-29 18:36] LABS: CKMB % Relative Index 1.8 % (1.5-5.0); Creatine Kinase MB 2.54 ng/mL (<2.37)
[2022-03-29 18:37] LABS: Add Manual Diff / Slide Review NO; Basophils Absolute Auto 0 /uL (0-100); Basophils Percent Auto 0.4 % (0-2); Eosinophils Absolute Auto 0 /uL (0-450); Eosinophils Percent Auto 0.1 % (2-4); Hematocrit 31.4 % (41-53); Lymphocytes Absolute Auto 500 /uL (1100-4500); Lymphocytes Percent Auto 7.1 % (25-40); Mean Corpuscular HGB Conc 34.9 % (30-36); Mean Corpuscular Volume 103.2 fL (80-100); Monocytes Absolute Auto 600 /uL (0-900); Monocytes Percent Auto 8.1 % (3-14); Neutrophils Absolute Auto 6200 /uL (1500-7000); Neutrophils Percent Auto 84.3 % (50-75); Platelet Count 107 X10^3/uL (150-400); Red Blood Cell Count 3.05 X10^6/uL (4.5-5.9); Red Cell Distribution Width 13.7 % (11.6-14.8); White Blood Cell Count 7.4 X10^3/uL (4.5-11.0)
--- NOTE | 2022-03-29 18:42 | DI.CT.S_ITS ---
PROCEDURE: CT CHEST WO CON INDICATIONS: ?rib fx TECHNIQUE: Noncontrast 5 mm thick sections acquired from the pulmonary apices to the posterior costophrenic angles. 1 mm lung window, 5 mm thick coronal and sagittal and 7 mm axial MIP reformats were then acquired. For radiation dose reduction, the following was used: automated exposure control, adjustment of mA and/or kV according to patient size. COMPARISON: None. FINDINGS: Image quality: Excellent. Lungs and pleura: No acute air space opacities. 6 mm subpleural nodule within the lateral aspect of the major fissure (series 3, image 135). Mild dependent bibasilar airspace opacity. No pleural effusions or pneumothorax. Central and peripheral airways are patent and normal in caliber. Mediastinum: Heart size is enlarged. Calcification of the coronary vasculature. No pericardial effusion. No mediastinal adenopathy by size criteria. Thoracic aorta and central pulmonary arteries are normal in size. Esophagus is normal in caliber. No hiatal hernia. Bones and chest wall: No suspicious bony lesions. No acute rib fractures. Mild multilevel chronic appearing compression fractures. No acute vertebral body compression fractures. No axillary or supraclavicular adenopathy by size criteria. Thyroid gland is within normal limits on noncontrast imaging . Abdomen: Visualized portions of the upper abdomen demonstrate diffusely decreased hepatic density. IMPRESSION: 1. Bibasilar atelectasis versus pneumonia. 2. Right lateral pleural nodule. Follow-up is recommended as below. Fleischner Society criteria for SOLID lung nodule followup. Nodule size (mm)Low-risk patientHigh-risk patient<6 (single or multiple)No routine followup.Optional CT at 12 months. 6-8 (single or multiple)CT at 6-12 months, then optional CT at 18-24 mo.CT at 6-12 months, then CT at 18-24 months. >8 (single)CT, PET-CT, or biopsy at 3 months. Same as for low-risk pts. >8 (multiple)CT at 3-6 months, then optional CT at 18-24 mo.CT at 3-6 months, then CT at 18-24 months. Fleischner Society criteria for SUB-SOLID lung nodule followup. Solitary pure ground-glass nodules<6 mm (ground glass or part solid)No followup needed. 6 mm or larger (ground glass)CT at 6-12 months to confirm persistence, then CT every 2 years until 5 years.6 mm or larger (part solid)CT at 3-6 months to confirm persistence, then annual CT until 5 years if unchanged and solid component remains <6 mm. Multiple sub-solid nodules<6 mmCT at 3-6 months, then CT consider at 2 & 4 years for high risk patients. [address] at 3-6 months. Subsequent management based on most suspicious lesions. Recommendations do not apply to lung cancer screening, patients with immunosuppression, or patients with known primary cancer. Dictated by: Luisito Tan M.D. on 03/29/2022 at 19:19 Approved by: Luisito Tan M.D. on 03/29/2022 at 19:22
--- NOTE | 2022-03-29 18:43 | DI.CT.S_ITS ---
PROCEDURE: CT CERVICAL SPINE WO CON INDICATIONS: Fall TECHNIQUE: Noncontrast 3 mm thick sections acquired from the skull base to the T4 level. Sagittal and coronal reformats were then constructed. For radiation dose reduction, the following was used: automated exposure control, adjustment of mA and/or kV according to patient size. COMPARISON: [facility], CT, CT CERVICAL SPINE WO CON, 06/19/2020, 14:56. FINDINGS: Image quality: Excellent. Bones: No fractures or dislocations. Mild chronic appearing T2 compression fracture. Visualized superior ribs are intact. Soft tissues: Prevertebral soft tissues are normal in thickness. No paravertebral hematomas. No apical pneumothoraces. IMPRESSION: 1. No acute fracture. Dictated by: Luisito Tan M.D. on 03/29/2022 at 19:16 Approved by: Luisito Tan M.D. on 03/29/2022 at 19:17
[2022-03-29 19:14] LABS: Bacteria Urine None Seen; Culture Indicated Urine Cult Not Indicated; RBC Urine None Seen (0-5/HPF); WBC Urine None Seen (0-5/HPF)
[2022-03-29 19:54] LABS: NT-proBNP (BNP-Adult 18+) 5280 pg/mL (<450)
[2022-03-29] MEDS: FUROSEMIDE 40 MG/4 ML VIAL IV (20:11)
== END 2022-03-29 20:37 | disposition home or self-care (01) ==
PROVIDERS: Emergency Provider Student in an Organized Health Care Education/Training Program; PCP Student in an Organized Health Care Education/Training Program
DX: I48.91 Unspecified atrial fibrillation (principal); I50.9 Heart failure, unspecified; F10.139 Alcohol abuse with withdrawal, unspecified; S09.90XA Unspecified injury of head, initial encounter; M54.2 Cervicalgia; W19.XXXA Unspecified fall, initial encounter
CPT/HCPCS: 36415; 70450; 71045; 71250; 72125; 80053; 80320; 81003; 81015; 82550; 82553; 83690; 83735; 83880; 84484; 85025; 85610; 85730; 93005; 93010; 96361; 96374; 96375; 99284; J1940; J2060

== ENCOUNTER 2022-03-30 00:18 | Emergency (ER) | payer MEDICARE, OTHER, SELFPAY ==
[2019-07-03 21:02] VITALS: PULSE 98; RESP 16; O2SAT 98
[2021-07-23 03:14] VITALS: BMI 24.3
--- NOTE | 2022-03-30 00:24 | ED.GENADULT ---
HPI - General Adult General Chief complaint: Fall Stated complaint: GLF hit head Time Seen by Provider: 03/30/22 00:18 Source: patient and EMS Mode of arrival: EMS Limitations: no limitations History of Present Illness HPI narrative: Patient is a 76-year-old male who is brought in by EMS for evaluation of injuries that he sustained where he states he lost his balance at home and fell over hit his head. There was no loss of consciousness. He states he was not having palpitations he just lost his balance. He was seen here in the emergency department earlier today for palpitations and issues with his atrial fibrillation. According to the note the patient does have a significant alcohol use and also has had balance issues and falls. There was also concern about dementia and problems with memory. He is not on any anticoagulation. He sustained a cut to his left ear. He reports no other injuries although does state that his right side is hurting. Patient arrived not on a backboard not in a cervical collar. Related Data Previous Rx's Medication Instructions Recorded metoprolol succinate 25 mg 25 mg PO DAILY #30 tabs 06/08/21 tablet,extended release 24 hr furosemide 20 mg tablet 10 mg PO QAM #45 tabs 07/24/21 furosemide 40 mg tablet (Lasix) 40 mg PO QAM #30 tabs 03/29/22 ciprofloxacin HCl 250 mg tablet 250 mg PO BID 5 days #10 tabs 03/30/22 (Cipro) Allergies Allergy/AdvReac Type Severity Reaction Status Date / Time amoxicillin [AMOXICILLIN] Allergy Severe SWOLLEN JAW Verified 03/29/22 17:41 clindamycin [CLINDAMYCIN] AdvReac Severe C-DIFF Verified 03/29/22 17:41 Review of Systems Constitutional Constitutional: Reports system reviewed and no additional complaints, except as documented ENT Ears, Nose, Mouth, and Throat: Reports system reviewed and no additional complaints, except as documented Cardiovascular Cardiovascular: Reports system reviewed and no additional complaints, except as documented Respiratory Respiratory: Reports system reviewed and no additional complaints, except as documented Integumentary/Breasts Skin/Breast: Reports system reviewed and no additional complaints, except as documented Neurologic Neurologic: Reports system reviewed and no additional complaints, except as documented Hematologic/Lymphatic On Anticoagulants: No Patient History Medical History Alcohol abuse Alcohol withdrawal Alcohol withdrawal delirium Anemia, chronic disease Atrial fibrillation BPH w urinary obs/LUTS Cardiomyopathy Former smoker Gout History of adenomatous polyp of colon HTN (hypertension) Mixed hyperlipidemia Surgical History History of percutaneous endoscopic gastrostomy (~2019) Family History Mother Lung cancer Sister Rheumatoid arthritis Social History marital status: household members: none occupational status: previously employed Smoking Status: Former smoker alcohol intake: current substance use type: does not use Smoking Status: Former smoker alcohol intake frequency: 3 or more drinks per day Alcohol type: beer, wine and hard liquor Substance Use Type: does not use Exam Initial Vital Signs Initial Vital Signs: Vital Signs Temperature 98.3 F 03/30/22 00:27 Pulse Rate 103 H 03/30/22 00:27 Respiratory Rate 18 03/30/22 00:27 Blood Pressure 94/64 03/30/22 00:27 Pulse Oximetry 99 03/30/22 00:27 Oxygen Delivery Method 03/30/22 00:27 Const General: cooperative and No ill appearing HENMT HENMT Other: Patient has a very complex laceration to the left ear. It does involve the cartilage. Is approximally 4 cm total length but extends from the anterior portion to the posterior portion of the ear. There is no active bleeding. Chest Other: Tenderness to palpation right lower ribs. Resp Effort & Inspection: normal respiratory effort Auscultation: clear to auscultation bilaterally Cardio Rate: regular rate Rhythm: regular rhythm GI Other: Tenderness to palpation right upper quadrant Back/Spine/Pelvis Back: CVA tenderness right Neuro General: patient alert, patient awake and oriented (Person and place and year) Speech: speech normal Extrem Other: Bilateral upper extremities unremarkable. Pelvis is stable. Procedures Laceration Repair Laceration 1: Site: other (Ear) Side (If applicable): left Size (cm): 4 Description: irregular Depth: [id number] Local Anesthetic: other anesthetic (Regional block) Pre-repair: wound explored and irrigated extensively Skin layer closed with: other (Chromic) Skin layer suture size: 4-0 Number of sutures: 15 Technique: simple, interrupted Course Orders Ordered: ED Orders 03/30/22 00:26 CT abdomen pelvis w con Stat CT cervical spine wo con Stat CT head/brain wo con Stat 03/30/22 00:30 Basic Metabolic Panel Stat Complete Blood Count AUTO DIFF Stat Ethanol (ETOH) Stat EKG-12 Lead Stat Discontinued Medications Ciprofloxacin (Ciprofloxacin 250 Mg Tablet) 250 mg PO NOW ONE Stop: 03/30/22 02:48 Last Admin: 03/30/22 03:00 Dose: 250 mg Documented By: SAVANNA Lidocaine HCl (Lidocaine 2% Inj Mdv 20ml) 20 ml INJ INTRA-OP ONE Stop: 03/30/22 00:48 Last Admin: 03/30/22 01:44 Dose: Not Given Documented By: SAVANNA Lidocaine HCl (Lidocaine 2% Inj Sdv 5ml) 5 ml INJ INTRA-OP ONE Stop: 03/30/22 01:40 Last Admin: 03/30/22 01:51 Dose: Not Given Documented By: SAVANNA Vital Signs Vital signs: Vital Signs - 8 hr 03/30/22 00:27 03/30/22 03:07 Temperature 98.3 F Pulse Rate 103 H 72 Respiratory Rate 18 20 Blood Pressure 94/64 113/76 Pulse Oximetry 99 100 Oxygen Delivery Method Room Air Room Air Medical Decision Making Medical Records Medical records reviewed: Yes I reviewed the patient's medical records. Lab Data Lab results reviewed: Yes I reviewed the patient's lab results. 03/30/22 00:30 03/30/22 00:30 Labs: Lab Results 03/30/22 03/30/22 Range/Units 00:30 00:30 WBC 5.6 (4.5-11.0) X10^3/uL RBC 3.10 L (4.5-5.9) X10^6/uL Hgb 11.2 L (13.5-17.5) g/dL Hct 32.2 L (41-53) % MCV 104.0 H (80-100) fL MCH 36.1 H (26-34) PG MCHC 34.7 (30-36) % RDW 13.9 (11.6-14.8) % Plt Count 113 L (150-400) X10^3/uL Neut % (Auto) 83.2 H (50-75) % Lymph % (Auto) 7.5 L (25-40) % Nance % (Auto) 8.2 (3-14) % Eos % (Auto) 0.3 L (2-4) % Baso % (Auto) 0.8 (0-2) % Neut # (Auto) 4700 (1752-3333) /uL Lymph # (Auto) 400 L (6604-1515) /uL Nance # (Auto) 500 (0-900) /uL Eos # (Auto) 0 (0-450) /uL Baso # (Auto) 0 (0-100) /uL Sodium 135 L (137-145) mmol/L Potassium 3.8 (3.4-5.1) mmol/L Chloride 98 (98-107) mmol/L Carbon Dioxide 23 (22-32) mmol/L BUN 17 (9-20) mg/dL Creatinine 1.20 (0.66-1.25) mg/dL Estimated GFR > 60 (>60) mL/min BUN/Creatinine Ratio 14.2 (6-22) Glucose 116 H (80-110) mg/dL Calcium 8.7 (8.4-10.2) mg/dL Ethyl Alcohol < 10 ( - 10) mg/dL Imaging Data CT scan - abdomen/pelvis: Radiologist's Impression: [place] [address] CT Scan Report Signed Patient: Master Porter MR#: [id number] : 1945 Acct:[id number] Age/Sex: 76 / M Date of Service: 03/30/22 Loc: ED Accession Number: [id number] ?? Procedure: CT abdomen pelvis w con Ordering Provider: Master Medina D.O. PROCEDURE:? CT ABDOMEN PELVIS W CON ? INDICATIONS:? Right side flank pain after fall ? TECHNIQUE:? After the administration of intravenous contrast, axial sections acquired from the lung bases to the pubic symphysis.? Coronal and sagittal reformats were performed.? For radiation dose reduction, the following was used:? automated exposure control, adjustment of mA and/or kV according to patient size.? ? COMPARISON:? [facility], CT, CT CHEST ABDOMEN PELVIS WITH CONTRAST, 06/28/2021, 19:57.? [facility], CT, CT ANGIO CHEST PE PROTOCOL, 02/06/2022, 18:21. ? FINDINGS:? Image quality:? Excellent.? ? Lung bases:? Bibasilar atelectatic and/or gravitational changes. Heart:? Moderate cardiomegaly. ? ABDOMEN: Liver:? Moderate to significant hepatic steatosis.? No focal liver lesion.? No laceration. Gallbladder:? Decompressed Biliary ducts:? Nondilated Pancreas:? Normal. Spleen:? Normal size. Adrenal Glands:? No nodules. Kidneys and Ureters:? Symmetric enhancement.? No nephrolithiasis or hydronephrosis.? No hydroureter. Specifically, no evidence of right renal trauma. ? Stomach and Bowel:? Stomach, small bowel loops, and colon are unremarkable.? Appendix not seen. Peritoneum:? No abnormal intraperitoneal fluid.? No free air.? ? Ventral Wall: ? No hernias.? Abdominal Nodes:? No retroperitoneal or mesenteric adenopathy by size criteria.? Vessels:? Aorta and inferior vena cava are normal in size.? Heavy abdominal aortic atherosclerotic calcification. ? PELVIS: Pelvic Organs:? Mild prostatomegaly.? Large, partially imaged right hydrocele. Bladder:? Normal. Pelvic Nodes: No enlarged lymph nodes.? Miscellaneous: No hernias are seen. ? ? ? Bones:? Nondisplaced right posterior 11th rib fracture.? Probably acute.? Minor T10 superior endplate depression.? Moderate anterior wedge compression of T12.? Moderate superior endplate scalloping of L1 and L2.? None appear acute. ? ? IMPRESSION:? ? 1. Possibly acute nondisplaced right posterior 11th rib fracture.? ? 2. Moderate to severe hepatic steatosis. ? 3. Normal right kidney without laceration. ? 4. Several chronic appearing and stable vertebral body compression fractures.? ? ? Dictated by: Nani Jimenez M.D. on 03/30/2022 at 1:45 ? ? Approved by: Nani Jimenez M.D. on 03/30/2022 at 1:56?? CT - cervical spine: Radiologist's Impression: [address] [address] [address] Scan Report Signed Patient: GermanMaster MR#: [id number] : 1945 Acct:[id number] Age/Sex: 76 / M Date of Service: 03/30/22 Loc: ED Accession Number: [id number] ?? Procedure: CT cervical spine wo con Ordering Provider: Master Medina D.O. PROCEDURE:? CT CERVICAL SPINE WO CON ? INDICATIONS:? Fall, right-sided paraspinal cervical pain ? TECHNIQUE:? Noncontrast 3 mm thick sections acquired from the skull base to the T4 level.? Sagittal and coronal reformats were then constructed.? For radiation dose reduction, the following was used:? automated exposure control, adjustment of mA and/or kV according to patient size.? ? COMPARISON:? [facility], CT, CT CERVICAL SPINE WO CON, 03/29/2022, 18:43. ? FINDINGS:? Image quality:? Excellent.? ? Bones:? There is degenerative anterior height loss of C7.? Mild to moderate anterior and posterior endplate spurs from C5 through C7.? Chronic T2 anterior wedge compression fracture with anterior endplate osteophytosis.? There is a gabby-salesperson pets and pet supplies's spinous process fracture of T1.? This appears well corticated.? There are no acute fractures. ? Soft tissues:? Prevertebral soft tissues are normal in thickness.? No paravertebral hematomas.? No apical pneumothoraces.? Moderate to heavy carotid bulb calcification.? ? ? IMPRESSION:? ? 1. No new fractures. ? 2. Chronic degenerative and remote posttraumatic changes as described.? Dictated by: Nani Jimenez M.D. on 03/30/2022 at 1:41 ? ? Approved by: Nani Jimenez M.D. on 03/30/2022 at 1:45? CT scan - head: Radiologist's Impression: [place] [address] CT Scan Report Signed Patient: Master Porter MR#: [id number] : 1945 Acct:[id number] Age/Sex: 76 / M Date of Service: 03/30/22 Loc: ED Accession Number: [id number] ?? Procedure: CT head/brain wo con Ordering Provider: Master Medina D.O. PROCEDURE:? CT HEAD/BRAIN WO CON ? INDICATIONS:? Fall, alcohol use, left-sided head injury ? TECHNIQUE:? Noncontrast 4.5 mm thick angled axial sections acquired from the foramen magnum to the vertex, with coronal and sagittal reformats.? For radiation dose reduction, the following was used:? automated exposure control, adjustment of mA and/or kV according to patient size.? ? COMPARISON:? [facility], CT, CT HEAD/BRAIN WO PEDRO, 03/29/2022, 18:07. ? FINDINGS:? Image quality:? Excellent.? ? CSF spaces:? Basal cisterns are patent.? No extra-axial fluid collections.? The ventricles are symmetric in size and shape.? ? Brain:? No intracranial bleeds or masses.? There is cerebral volume loss for age, with resultant ventricular and sulcal prominence.? There are moderate periventricular and deep white matter chronic small vessel ischemic changes.? There is a small area cortical loss in the left posterior parietal region, presumably tiny infarct.? There is intracranial internal carotid artery atherosclerosis.? ? Skull and face:? Calvarium and visualized facial bones appear intact, without suspicious lesions.? ? Sinuses:? Visualized sinuses and mastoids are clear.? ? IMPRESSION:? ? 1. 1. No CT evidence of acute intracranial trauma. ? 2. No significant soft tissue injury or underlying fracture.? ? 3. Chronic microvascular ischemic changes and remote appearing tiny left parietal infarct.? ? ? Dictated by: Nani Jimenez M.D. on 03/30/2022 at 1:38 ? ? Approved by: Nani Jimenez M.D. on 03/30/2022 at 1:40 ECG Data Attestation: I personally reviewed and interpreted this ECG as follows: Prior ECG tracings: available for review Interpretation: Atrial fibrillation Ventricular rate [address] T wave changes MDM Narrative Medical decision making narrative: Patient was seen earlier today and discharged home. He has had issues with alcohol withdrawal and also seizures and alcohol abuse. He is not on anticoagulation. He is rate controlled AFib. He stated that at home he lost his balance and fell. This does not appear to be a new issue for him. He does have a walker at home however his states that he does not use it often. He sustained a very complex laceration to his left ear than involve the cartilage. It was closed as described above. Because of the cartilage involvement we will place him on antibiotics. Because of his allergies and issues with C diff in the past will place him on Cipro. He was given care instructions for this and also recommendations to follow-up with ENT. He does have pain over what appears to be a rib fracture on the right side. This was seen on the CT scan. There were no other acute findings on the CT scans. Patient was able to ambulate here in the emergency department with a walker. He is no chest pain and no shortness of breath and is rate controlled AFib. Patient will be discharged home with instructions to continue to take all his medications. He was given return precautions. Discharge Plan Departure Patient Disposition: Home Clinical Impression: Laceration of ear, Fracture of rib, Fall Instructions: DI for Rib Fracture, How to Prevent Falls Activity Restrictions/Additional Instructions: Because of the location and the extent of the cut to your left ear we do need to start you on antibiotics. They were sent to [facility] in [place]. It is also important that you follow-up with the [facility] Thro[facility] (ENT). You can contact their office at the number provided below. You can put topical antibiotic ointment over the laceration. Return to the emergency department for any new symptoms. Prescriptions: New ciprofloxacin HCl [Cipro] 250 mg tablet 250 mg PO BID 5 Days Qty: 10 0RF No Action metoprolol succinate 25 mg tablet extended release 24 hr 25 mg PO DAILY Qty: 30 0RF Label Comments: Pt reports taking every other day, at best. Also stated only takes 2 pills, since it RX'd. furosemide 20 mg tablet 10 mg PO QAM Qty: 45 1RF furosemide [Lasix] 40 mg tablet 40 mg PO QAM Qty: 30 0RF Referrals: Cris Reyna MD [Primary Care Provider] - Adam Pack MD [Physician] - Stand Alone Forms: Patient Portal/API
--- NOTE | 2022-03-30 00:26 | DI.CT.S_ITS ---
PROCEDURE: CT ABDOMEN PELVIS W CON INDICATIONS: Right side flank pain after fall TECHNIQUE: After the administration of intravenous contrast, axial sections acquired from the lung bases to the pubic symphysis. Coronal and sagittal reformats were performed. For radiation dose reduction, the following was used: automated exposure control, adjustment of mA and/or kV according to patient size. COMPARISON: [facility], CT, CT CHEST ABDOMEN PELVIS WITH CONTRAST, 06/28/2021, 19:57. [facility], CT, CT ANGIO CHEST PE PROTOCOL, 02/06/2022, 18:21. FINDINGS: Image quality: Excellent. Lung bases: Bibasilar atelectatic and/or gravitational changes. Heart: Moderate cardiomegaly. ABDOMEN: Liver: Moderate to significant hepatic steatosis. No focal liver lesion. No laceration. Gallbladder: Decompressed Biliary ducts: Nondilated Pancreas: Normal. Spleen: Normal size. Adrenal Glands: No nodules. Kidneys and Ureters: Symmetric enhancement. No nephrolithiasis or hydronephrosis. No hydroureter. Specifically, no evidence of right renal trauma. Stomach and Bowel: Stomach, small bowel loops, and colon are unremarkable. Appendix not seen. Peritoneum: No abnormal intraperitoneal fluid. No free air. Ventral Wall: No hernias. Abdominal Nodes: No retroperitoneal or mesenteric adenopathy by size criteria. Vessels: Aorta and inferior vena cava are normal in size. Heavy abdominal aortic atherosclerotic calcification. PELVIS: Pelvic Organs: Mild prostatomegaly. Large, partially imaged right hydrocele. Bladder: Normal. Pelvic Nodes: No enlarged lymph nodes. Miscellaneous: No hernias are seen. Bones: Nondisplaced right posterior 11th rib fracture. Probably acute. Minor T10 superior endplate depression. Moderate anterior wedge compression of T12. Moderate superior endplate scalloping of L1 and L2. None appear acute. IMPRESSION: 1. Possibly acute nondisplaced right posterior 11th rib fracture. 2. Moderate to severe hepatic steatosis. 3. Normal right kidney without laceration. 4. Several chronic appearing and stable vertebral body compression fractures. Dictated by: Nani Jimenez M.D. on 03/30/2022 at 1:45 Approved by: Nani Jimenez M.D. on 03/30/2022 at 1:56
--- NOTE | 2022-03-30 00:26 | DI.CT.S_ITS ---
PROCEDURE: CT HEAD/BRAIN WO CON INDICATIONS: Fall, alcohol use, left-sided head injury TECHNIQUE: Noncontrast 4.5 mm thick angled axial sections acquired from the foramen magnum to the vertex, with coronal and sagittal reformats. For radiation dose reduction, the following was used: automated exposure control, adjustment of mA and/or kV according to patient size. COMPARISON: [facility], CT, CT HEAD/BRAIN WO CON, 03/29/2022, 18:07. FINDINGS: Image quality: Excellent. CSF spaces: Basal cisterns are patent. No extra-axial fluid collections. The ventricles are symmetric in size and shape. Brain: No intracranial bleeds or masses. There is cerebral volume loss for age, with resultant ventricular and sulcal prominence. There are moderate periventricular and deep white matter chronic small vessel ischemic changes. There is a small area cortical loss in the left posterior parietal region, presumably tiny infarct. There is intracranial internal carotid artery atherosclerosis. Skull and face: Calvarium and visualized facial bones appear intact, without suspicious lesions. Sinuses: Visualized sinuses and mastoids are clear. IMPRESSION: 1. 1. No CT evidence of acute intracranial trauma. 2. No significant soft tissue injury or underlying fracture. 3. Chronic microvascular ischemic changes and remote appearing tiny left parietal infarct. Dictated by: Nani Jimenez M.D. on 03/30/2022 at 1:38 Approved by: Nani Jimenez M.D. on 03/30/2022 at 1:40
--- NOTE | 2022-03-30 00:26 | DI.CT.S_ITS ---
PROCEDURE: CT CERVICAL SPINE WO CON INDICATIONS: Fall, right-sided paraspinal cervical pain TECHNIQUE: Noncontrast 3 mm thick sections acquired from the skull base to the T4 level. Sagittal and coronal reformats were then constructed. For radiation dose reduction, the following was used: automated exposure control, adjustment of mA and/or kV according to patient size. COMPARISON: [facility], CT, CT CERVICAL SPINE WO CON, 03/29/2022, 18:43. FINDINGS: Image quality: Excellent. Bones: There is degenerative anterior height loss of C7. Mild to moderate anterior and posterior endplate spurs from C5 through C7. Chronic T2 anterior wedge compression fracture with anterior endplate osteophytosis. There is a gabby-stamp pad finisher's spinous process fracture of T1. This appears well corticated. There are no acute fractures. Soft tissues: Prevertebral soft tissues are normal in thickness. No paravertebral hematomas. No apical pneumothoraces. Moderate to heavy carotid bulb calcification. IMPRESSION: 1. No new fractures. 2. Chronic degenerative and remote posttraumatic changes as described. Dictated by: Nani Jimenez M.D. on 03/30/2022 at 1:41 Approved by: Nani Jimenez M.D. on 03/30/2022 at 1:45
[2022-03-30 00:27] VITALS: BP 94/64; PULSE 103; RESP 18; TEMP 36.8; O2SAT 99; BMI 24.3
[2022-03-30 00:47] LABS: Add Manual Diff / Slide Review NO; Basophils Absolute Auto 0 /uL (0-100); Basophils Percent Auto 0.8 % (0-2); Eosinophils Absolute Auto 0 /uL (0-450); Eosinophils Percent Auto 0.3 % (2-4); Hematocrit 32.2 % (41-53); Hemoglobin 11.2 g/dL (13.5-17.5); Lymphocytes Absolute Auto 400 /uL (1100-4500); Lymphocytes Percent Auto 7.5 % (25-40); Mean Corpuscular HGB Conc 34.7 % (30-36); Mean Corpuscular Hemoglobin 36.1 PG (26-34); Monocytes Absolute Auto 500 /uL (0-900); Monocytes Percent Auto 8.2 % (3-14); Neutrophils Absolute Auto 4700 /uL (1500-7000); Neutrophils Percent Auto 83.2 % (50-75); Platelet Count 113 X10^3/uL (150-400); Red Cell Distribution Width 13.9 % (11.6-14.8); White Blood Cell Count 5.6 X10^3/uL (4.5-11.0)
[2022-03-30 00:53] LABS: BUN Creatinine Ratio 14.2 (6-22); Blood Urea Nitrogen 17 mg/dL (9-20); Calcium 8.7 mg/dL (8.4-10.2); Carbon Dioxide 23 mmol/L (22-32); Chloride 98 mmol/L (98-107); Estimated Glomerular Filt Rate > 60 mL/min (>60); Ethanol (ETOH) < 10 mg/dL; Glucose 116 mg/dL (80-110); HEMOLYSIS < 15 (0-50); Potassium 3.8 mmol/L (3.4-5.1); Sodium 135 mmol/L (137-145)
[2022-03-30] MEDS: LIDOCAINE 2% INJ SDV 5ML 20 ML (01:51)
[2022-03-30] MEDS: CIPROFLOXACIN 250 MG TABLET PO (03:00)
[2022-03-30 03:07] VITALS: BP 113/76; PULSE 72; RESP 20; O2SAT 100
--- NOTE | 2022-03-30 03:08 | PC.NURSE ---
pt ambulated in hallway with walker without difficulty denied any weakness just feels tired
== END 2022-03-30 03:20 | disposition home or self-care (01) ==
PROVIDERS: Emergency Provider Emergency Medicine; PCP Student in an Organized Health Care Education/Training Program
DX: S01.312A Laceration without foreign body of left ear, initial encounter (principal); S22.31XA Fracture of one rib, right side, initial encounter for closed fracture; R07.9 Chest pain, unspecified; F10.139 Alcohol abuse with withdrawal, unspecified; W18.30XA Fall on same level, unspecified, initial encounter
CPT/HCPCS: 12013; 70450; 72125; 74177; 80048; 80320; 85025; 93005; 93010; 99283; 99284; Q9967

== ENCOUNTER 2022-09-14 11:48 | Emergency (ER) | payer MEDICARE, OTHER, SELFPAY ==
[2019-07-03 21:02] VITALS: PULSE 98; RESP 16; O2SAT 98
[2021-07-23 03:14] VITALS: BMI 24.3
[2022-09-14 11:50] VITALS: BP 166/96; PULSE 78; RESP 16; TEMP 36.6; O2SAT 98; BMI 24.3
--- NOTE | 2022-09-14 11:57 | ED_ITS ---
HPI - Extremity Problem <DRAGAN Levine - Last Filed: 09/14/22 16:39> General Chief complaint: Extremity Problem,Nontraumatic Stated complaint: rt knee pain Time Seen by Provider: 09/14/22 11:57 Source: patient Mode of arrival: Wheelchair History of Present Illness HPI Narrative: This is a 77-year-old gentleman who presents to the emergency department with right knee pain that started yesterday but has progressed to worse today. Complains of inability to walk, denies previous surgeries to this knee. Denies fever or chills. Reports a history of atrial fibrillation without anticoagulation, gout and alcoholism. Denies fevers, chills, fatigue or feeling unwell. Patient is a poor historian, lives at [facility] and is brought in by his significant other for right knee pain that started yesterday morning. He states that he is unable to walk on it because of pain, states it is exquisitely tender to touch and he can not tolerate bearing weight. Has not had any fall or injury recently. Patient has a history of amoxicillin and clindamycin. Patient denies drinking recently, states he has not drank in 1 week but his family member states this is likely not true. He has had history of severe alcohol withdrawals in the past, he denies current symptoms of withdrawal. Related Data Previous Rx's Medication Instructions Recorded metoprolol succinate 25 mg 25 mg PO DAILY #30 tabs 06/08/21 tablet,extended release 24 hr furosemide 20 mg tablet 10 mg PO QAM #45 tabs 07/24/21 furosemide 40 mg tablet (Lasix) 40 mg PO QAM #30 tabs 03/29/22 diclofenac sodium 1 % topical gel 4 g topical QID #100 grams 09/14/22 hydrocodone 5 mg-acetaminophen 325 1 tab PO Q6H PRN pain #14 tabs 09/14/22 mg tablet omeprazole 20 mg capsule,delayed 20 mg PO DAILY #14 caps 09/14/22 release prednisone 20 mg tablet 40 mg PO DAILY #13 tabs 09/14/22 Allergies Allergy/AdvReac Type Severity Reaction Status Date / Time amoxicillin [AMOXICILLIN] Allergy Severe SWOLLEN JAW Verified 03/29/22 17:41 clindamycin [CLINDAMYCIN] AdvReac Severe C-DIFF Verified 03/29/22 17:41 Review of Systems <DRAGAN Levine - Last Filed: 09/14/22 16:39> Review of Systems ROS Unobtainable: All systems reviewed & are unremarkable except as noted in HPI and below Patient History <DRAGAN Levine - Last Filed: 09/14/22 16:39> Medical History Alcohol abuse Alcohol withdrawal Alcohol withdrawal delirium Anemia, chronic disease Atrial fibrillation BPH w urinary obs/LUTS Cardiomyopathy Former smoker Gout History of adenomatous polyp of colon HTN (hypertension) Mixed hyperlipidemia Surgical History History of percutaneous endoscopic gastrostomy (~2019) Family History Mother Lung cancer Sister Rheumatoid arthritis Social History marital status: household members: none occupational status: previously employed Smoking Status: Former smoker alcohol intake: current substance use type: does not use Smoking Status: Former smoker alcohol intake frequency: 3 or more drinks per day Alcohol type: beer, wine and hard liquor Substance Use Type: does not use Exam <DRAGAN Levine - Last Filed: 09/14/22 16:39> Narrative Exam Narrative: Reviewed vitals signs and nursing notes. General: Pleasant, sitting upright, in mild distress, well groomed, afebrile HEENT: symmetrical facial expressions, moist mucous membranes, neck is supple CV: irregular rate and rhythm, warm extremities, without dependent edema bilaterally Respiratory: normal work of breathing, without tachypnea or hypoxia. GI: abdomen soft, nondistended, without CVA tenderness bilaterally. MSK: moves all extremities, no weakness, normal tone, right knee is erythematous, swollen, exquisitely tender to palpation, pain is out of proportion, there is no wound, I presume this is most likely gout versus cellulitis versus septic joint Skin: brisk capillary refill, erythema to right knee Neuro: clear speech and normal cognition, A&O x3, GCS 15, no focal motor or sensation deficits Initial Vital Signs Initial Vital Signs: Vital Signs Temperature 97.9 F 09/14/22 11:50 Pulse Rate 78 08/02/23 11:50 Respiratory Rate 16 09/14/22 11:50 Blood Pressure 166/96 H 09/14/22 11:50 Pulse Oximetry 98 09/14/22 11:50 Oxygen Delivery Method Room Air 09/14/22 11:50 <Bg Miramontes MD - Last Filed: 10/10/22 21:39> Initial Vital Signs Initial Vital Signs: Vital Signs Temperature 97.9 F 09/14/22 11:50 Pulse Rate 78 09/14/22 11:50 Respiratory Rate 16 09/14/22 11:50 Blood Pressure 166/96 H 09/14/22 11:50 Pulse Oximetry 98 09/14/22 11:50 Oxygen Delivery Method Room Air 09/14/22 11:50 Course <DRAGAN Levine - Last Filed: 09/14/22 16:39> Orders Ordered: Discontinued Medications Hydrocodone Bitart/Acetaminophen (Hydrocodone/Acet 5/325 Tablet) 1 tab PO NOW ONE Stop: 09/14/22 12:09 Last Admin: 09/14/22 12:33 Dose: 1 tab Documented By: SHERWIN Cephalexin HCl (Cephalexin 250 Mg Capsule) 500 mg PO NOW ONE Stop: 09/14/22 14:26 Last Admin: 09/14/22 14:50 Dose: Not Given Documented By: NICOLAS Doxycycline Hyclate (Doxycycline Hyclate 100 Mg Tablet) 100 mg PO NOW ONE Stop: 09/14/22 14:26 Last Admin: 09/14/22 14:50 Dose: Not Given Documented By: NICOLAS Ketorolac Tromethamine (Ketorolac 30 Mg/Ml Vial) 15 mg IM NOW ONE Stop: 09/14/22 12:09 Last Admin: 09/14/22 12:33 Dose: 15 mg Documented By: SHERWIN Pantoprazole Sodium (Pantoprazole Dr 20 Mg Tablet) 20 mg PO NOW ONE Stop: 09/14/22 12:10 Last Admin: 09/14/22 12:33 Dose: 20 mg Documented By: SHERWIN Vital Signs Vital signs: Vital Signs - 8 hr 09/14/22 11:50 09/14/22 16:25 Temperature 97.9 F Pulse Rate 78 80 Respiratory Rate 16 18 Blood Pressure 166/96 H 135/97 H Pulse Oximetry 98 98 Oxygen Delivery Method Room Air Room Air <Bg Miramontes MD - Last Filed: 10/10/22 21:39> Orders Ordered: Discontinued Medications Hydrocodone Bitart/Acetaminophen (Hydrocodone/Acet 5/325 Tablet) 1 tab PO NOW ONE Stop: 09/14/22 12:09 Last Admin: 09/14/22 12:33 Dose: 1 tab Documented By: SHERWIN Cephalexin HCl (Cephalexin 250 Mg Capsule) 500 mg PO NOW ONE Stop: 09/14/22 14:26 Last Admin: 09/14/22 14:50 Dose: Not Given Documented By: NICOLAS Doxycycline Hyclate (Doxycycline Hyclate 100 Mg Tablet) 100 mg PO NOW ONE Stop: 09/14/22 14:26 Last Admin: 09/14/22 14:50 Dose: Not Given Documented By: NICOLAS Ketorolac Tromethamine (Ketorolac 30 Mg/Ml Vial) 15 mg IM NOW ONE Stop: 09/14/22 12:09 Last Admin: 09/14/22 12:33 Dose: 15 mg Documented By: SHERWIN Pantoprazole Sodium (Pantoprazole Dr 20 Mg Tablet) 20 mg PO NOW ONE Stop: 09/14/22 12:10 Last Admin: 09/14/22 12:33 Dose: 20 mg Documented By: SHERWIN Vital Signs Vital signs: Vital Signs - 8 hr 09/14/22 11:50 09/14/22 16:25 Temperature 97.9 F Pulse Rate 78 80 Respiratory Rate 16 18 Blood Pressure 166/96 H 135/97 H Pulse Oximetry 98 98 Oxygen Delivery Method Room Air Room Air MDM - Extremity (Nontraumatic) <DRAGAN Levine - Last Filed: 09/14/22 16:39> Lab Data 09/14/22 12:45 09/14/22 12:45 Labs: Lab Results 09/14/22 09/14/22 09/14/22 Range/Units 12:45 12:45 12:45 WBC 7.1 (4.5-11.0) X10^3/uL RBC 3.57 L (4.5-5.9) X10^6/uL Hgb 12.3 L (13.5-17.5) g/dL Hct 35.9 L (41-53) % MCV 100.7 H (80-100) fL MCH 34.6 H (26-34) PG MCHC 34.3 (30-36) % RDW 13.5 (11.6-14.8) % Plt Count 191 (150-400) X10^3/uL Neut % (Auto) 68.4 (50-75) % Lymph % (Auto) 14.0 L (25-40) % [place] % (Auto) 15.1 H (3-14) % Eos % (Auto) 2.3 (2-4) % Baso % (Auto) 0.2 (0-2) % Neut # (Auto) 4800 (6224-3950) /uL Lymph # (Auto) 1000 L (4876-1094) /uL [place] # (Auto) 1100 H (0-900) /uL Eos # (Auto) 200 (0-450) /uL Baso # (Auto) 0 (0-100) /uL ESR 24 H (0-15) MM/HR D-Dimer 917 H (<500) ng/ml Sodium 137 (137-145) mmol/L Potassium 4.9 (3.4-5.1) mmol/L Chloride 104 (98-107) mmol/L Carbon Dioxide 25 (22-32) mmol/L BUN 11 (9-20) mg/dL Creatinine 0.88 (0.66-1.25) mg/dL Estimated GFR > 60 (>60) mL/min BUN/Creatinine Ratio 12.5 (6-22) Glucose 104 (80-110) mg/dL Uric Acid 7.6 (3.5-8.5) mg/dL Calcium 9.6 (8.4-10.2) mg/dL C-Reactive Protein 1.9 H (<1.0) mg/dL Ethyl Alcohol < 10 ( - 10) mg/dL Imaging Data Extremity x-ray #1: Radiologist's Impression: PROCEDURE:? XR KNEE RT 3V ? INDICATIONS:? pain/swelling ? TECHNIQUE:? 3 views of the knee were acquired.? ? COMPARISON:? None. ? FINDINGS:? ? Bones:? No fractures or dislocations.? No suspicious bony lesions.? ? Soft tissues:? No joint effusion.? No suspicious soft tissue calcifications.? Diffuse anterior swelling, superficial in superior and inferior to the patella.? ? ? IMPRESSION:? Soft tissue swelling.? No acute bony abnormality. ? ? Dictated by: Flex Garcia M.D. on 09/14/2022 at 12:50 ? ? Approved by: Flex Garcia M.D. on 09/14/2022 at 12:51 ? CT LE: Radiologist's Impression: Close Lower Extremity CT (Signed) SpencerJt - 09/14/22 Knee X-Ray (Signed) Flex Garcia - 09/14/22 Launch?[place] [address] CT Scan Report Signed Patient: Master Porter MR#: [id number] : 1945 Acct:[id number] Age/Sex: 77 / M Date of Service: 09/14/22 Loc: ED Accession Number: [id number] ?? Procedure: CT LE RT wo con Ordering Provider: Clarisa Reinoso PROCEDURE:? CT LE RT WO CON ? INDICATIONS:? anterior knee pain/swelling ? TECHNIQUE:? Noncontrast 1-1.5 mm axial sections acquired from the mid-patella to the proximal tibia, with coronal and sagittal reformats.? ? COMPARISON:? [facility], CR, XR KNEE RT 3V, 09/14/2022, 11:57. ? FINDINGS:? Image quality:? Excellent.? ? Bones:? Mild cortical irregularity is seen at the inferior medial aspect of the patella possibly related to a small impaction injury if there has been direct trauma to the patella versus chronic enthesopathic changes.? Small suprapatellar and infrapatellar enthesophytes are present.? Osseous structures are otherwise intact.? No tibial plateau fracture is seen.? Mild tricompartmental joint space narrowing with subchondral sclerosis at the medial compartment.? There is partial osseous fusion of the proximal tibiofibular articulation. ? Soft tissues:? Nonspecific prepatellar subcutaneous soft tissue edema.? Small joint effusion without fluid-fluid level.? Small medial popliteal cyst.? The articular cartilages, menisci, ligaments, and tendons are not well evaluated with standard CT.? Arterial vascular calcifications are noted.? The musculature surrounding the knee is age-appropriate in bulk. ? IMPRESSION:? 1. Focal cortical irregularity at the plantar medial aspect of the patella could represent a small impaction injury if there has been direct trauma to the patella versus chronic changes related to the patellar tendon origin.? Suprapatellar and infrapatellar enthesophytes are present.? MRI could be performed to evaluate for acute osseous edema or soft tissue injury if indicated clinically. 2. Nonspecific prepatellar subcutaneous soft tissue edema. 3. Small joint effusion.? Small medial popliteal cyst. ? Approved by: Jt Spencer M.D. on 09/14/2022 at 14:13? MR knee: Radiologist's Impression: PROCEDURE:? MR KNEE RT WO/W CON ? INDICATIONS:? osseus abnormality vs abscess ? TECHNIQUE:? Noncontrast sagittal PD fast spin echo and T2 fast spin echo with fat satura tion, sagittal 3-D FLASH with fat saturation; coronal T1 spin echo and PD fast spin echo with fat saturation, and axial T1 spin echo and PD fast spin echo with fat saturation through the knee.? Post-contrast axial, coronal, and sagittal T1 spin echo with fat saturation through the knee.? ? COMPARISON:? [facility], CR, XR KNEE RT 3V, 09/14/2022, 11:57.? [facility], CT, CT LE RT WO CON, 09/14/2022, 13:47. ? FINDINGS: Image quality: Excellent. ? Anterior Cruciate Ligament:? Intact. Posterior Cruciate Ligament:? Intact. Medial Collateral Ligament:? Intact. Lateral Collateral Ligament:? Intact. ? Medial Meniscus:? Intact. Lateral Meniscus:? Intermediate intrasubstance signal is seen in the body of the lateral meniscus without extension to an articular surface, most compatible with intrasubstance degeneration. ? Medial and Lateral Tendons: The semimembranosus tendon insertions and meniscocapsular junction appear intact.? Visualized portions of the pes anserinus tendons appear normal.? No abnormal bursal fluid.? The long and short heads of the biceps femoris tendon appear intact.? The popliteus tendon appears intact.? No signs of posterolateral corner injury.? Iliotibial band appears normal.? ? Anterior Structures:? Focal fluid signal intensity is seen within the medial proximal patellar tendon at its origin, comprising approximately 20% of the cross- sectional tendon area, suspicious for partial tearing.? There is irregularity of the adjacent portion of the inferior pole of the patella that may represent a partial avulsion injury versus impaction injury.? Infection is considered less likely.? There is surrounding soft tissue edema and mild osseous edema.? The distal quadriceps tendon demonstrates mild tendinosis. ?No patellar subluxation.? Small amount of fluid is seen in the deep infrapatellar bursa. ? Bones:? Focal osseous irregularity at the anterior inferior medial patella with mild surrounding osseous edema and central sclerosis.? Mild focal edema at the superior lateral patella is likely related to acute or chronic tendon traction. Medial Femorotibial Cartilage:? Mild partial-thickness cartilage thinning in the weight-bearing portion of the medial femorotibial compartment. Lateral Femorotibial Cartilage:? Mild partial-thickness cartilage thinning in the weight-bearing portion. Patellofemoral Cartilage:? Mild generalized cartilage thinning.? No focal defect. ? Soft Tissues:? A small amount of joint fluid is present.? Small medial popliteal cyst. The musculature surrounding the knee is normal in bulk.? Nonspecific subcutan eous soft tissue edema throughout the anterior knee.? No enhancing soft tissue mass. ? IMPRESSION:? 1. Partial intrasubstance tearing of the patellar tendon at the medial aspect of the origin involving approximately 20% of the cross-sectional area of the tendon. ? 2. Focal osseous irregularity at the anterior cortex of the inferior medial patella with central sclerosis and surrounding osseous edema, which is of uncertain etiology.? Considerations include an osseous avulsion injury, impaction injury, traction cystic changes, erosion/gout, or less likely chronic infection.? Surrounding osseous e elías is seen in the infrapatellar fat pad and the overlying subcutaneous tissues. ? 3. Mild distal quadriceps tendinosis and mild traction cystic changes at the superior lateral patella. ? 4. Small deep infrapatellar bursal effusion or bursitis. ? 5. Intrasubstance degeneration in the body of the medial meniscus without a discrete tear. ? 6. Cruciate and collateral ligaments are intact. ? 7. Small joint effusion.? Small medial popliteal cyst. ? Approved by: Jt Spencer M.D. on 09/14/2022 at 16:18? [facility] Narrative Medical decision making narrative: Chief Complaint: rt knee pain Multiple etiologies for patient's complaint considered including, but not limited to: Gout, cellulitis, septic joint, osteoarthritis, sprain/strain, traumatic injury, knee effusion I have independently reviewed the patient's vital signs and nursing notes as well as prior records if available. Plan: Lab work including ESR, CRP, uric acid, CBC and BNP, D-dimer for family's concern for DVT with history of AFib not on anticoagulation, and right knee x- ray. Toradol IM, Protonix and hydrocodone administered for pain and GI prophyla xis, anticipating steroids, right knee is most likely gout although septic joint is not ruled out yet. Course of Care: X-ray right knee shows soft tissue edema but no joint effusion Patient's lab work is reassuring although nonspecific, there is no leukocytosis or left shift, his ESR is elevated at 24 and his CRP is 1.9, uric acid is 7.6 and there are no priors to compare to, chemistry is not significant, alcohol level is undetectable. Working diagnosis remains cellulitis/abscess versus gout versus septic joint. CT without contrast ordered as patient does not have an IV and CT shows mild joint effusion, a cortical irregularity of the patella which could be due to an injury from impaction, and nonspecific prepatellar subcutaneous soft tissue edema. Patient's pain was improved and he is now able to move his knee, states it is much better. Now IV being placed for MR with contrast to the right knee Patient's D-dimer is elevated even for his age, age adjusted level cut off is 760, his is 917 but he does not have circumferential edema, dependent edema, shortness of breath, tachycardia, or any symptoms other than right knee pain which improved with Toradol and hydrocodone enough for he can move his knee and bend it. He has elevation of his inflammatory markers. MR in process at 15:00 MR came back with findings including partial tear of the patellar tendon of the medial aspect involving 20% of the tendon, focal osseous irregularity of the inferior medial patella with central sclerosis and surrounding edema which is likely related to gout. Patient denies any trauma, mild distal quadriceps tendinosis, small the bursal effusion/bursitis, intrasubstance degeneration of the body of the medial meniscus, small joint effusion and small medial popliteal cyst Patient was prescribed 5 days 40 mg of prednisone with a 3 day taper of 20 mg, omeprazole to protect his stomach as he has history of alcoholism, no NSAIDs due to risk of bleeding, topical diclofenac gel, encouraged him to schedule follow- up at [facility] for follow-up with his MRI, and hydrocodone as needed for pain. No antibiotics indicated at this time. Social considerations that may affect disposition: none Questions are addressed and there is agreement with the plan and for follow-up. I consulted with the ED attending physician Dr. Miramontes as needed for higher level of care considerations and they were available for discussion and recommendations regarding plan of care and diagnostic testing. Patient is appropriate for outpatient management. <Bg Miramontes MD - Last Filed: 10/10/22 21:39> Lab Data Labs: Lab Results 09/14/22 09/14/22 09/14/22 Range/Units 12:45 12:45 12:45 WBC 7.1 (4.5-11.0) X10^3/uL RBC 3.57 L (4.5-5.9) X10^6/uL Hgb 12.3 L (13.5-17.5) g/dL Hct 35.9 L (41-53) % MCV 100.7 H (80-100) fL MCH 34.6 H (26-34) PG MCHC 34.3 (30-36) % RDW 13.5 (11.6-14.8) % Plt Count 191 (150-400) X10^3/uL Neut % (Auto) 68.4 (50-75) % Lymph % (Auto) 14.0 L (25-40) % [place] % (Auto) 15.1 H (3-14) % Eos % (Auto) 2.3 (2-4) % Baso % (Auto) 0.2 (0-2) % Neut # (Auto) 4800 (1004-9262) /uL Lymph # (Auto) 1000 L (0974-6829) /uL [place] # (Auto) 1100 H (0-900) /uL Eos # (Auto) 200 (0-450) /uL Baso # (Auto) 0 (0-100) /uL ESR 24 H (0-15) MM/HR D-Dimer 917 H (<500) ng/ml Sodium 137 (137-145) mmol/L Potassium 4.9 (3.4-5.1) mmol/L Chloride 104 (98-107) mmol/L Carbon Dioxide 25 (22-32) mmol/L BUN 11 (9-20) mg/dL Creatinine 0.88 (0.66-1.25) mg/dL Estimated GFR > 60 (>60) mL/min BUN/Creatinine Ratio 12.5 (6-22) Glucose 104 (80-110) mg/dL Uric Acid 7.6 (3.5-8.5) mg/dL Calcium 9.6 (8.4-10.2) mg/dL C-Reactive Protein 1.9 H (<1.0) mg/dL Ethyl Alcohol < 10 ( - 10) mg/dL Discharge Plan Departure Patient Disposition: Home Clinical Impression: Edema of knee, Effusion of knee, Patellar tendon strain, Personal history of gout, Effusion of bursa of knee, Tendinosis of quadriceps tendon Instructions: DI for Gout, DI for Knee Effusion Activity Restrictions/Additional Instructions: *You have been diagnosed with a partial tear of the patellar tendon, likely gout of the right knee, tendinosis and bursitis, and a small joint effusion of the right knee. Please take these steroids for the next 5 days, schedule an appointment with [facility] for follow-up about this knee problem. Please ice and rest this, apply the diclofenac gel 4 times a day as needed for pain, take hydrocodone every 6 hours as needed for pain, please take the steroid 40 mg daily x5 days and then 20 mg x 3 days thereafter. This is for gout and the inflammation surrounding causing joint effusion and the bursal effusion. Please take omeprazole daily before any food to prevent ulcer of your stomach while taking the steroid. I hope you start feeling better soon, thank you for your patients today, please schedule follow-up at the orthopedic clinic and do not forget this. *What to do: *Please continue to take your regular medications as directed. [ ] New medication prescriptions sent to your pharmacy: [ ] [x ] New medication written as a paper prescription [ ] No new medications given *Please call and schedule follow up with your primary care provider in 2-3 days, at least for an update. Let them know you were seen in the Emergency Department for the above problem. We will electronically transmit a record of today's note if your PCP or specialist is in our system. *If you do not have a primary care provider please contact [phone] to establish care with one of the [facility] primary care providers. *Return to the Emergency Department for worsening symptoms, inability to keep liquids down, fever greater than 101F, chills, or other concerning symptom. Prescriptions: New prednisone 20 mg tablet 40 mg PO DAILY Qty: 13 0RF Rx Instructions: Take 40 mg daily x5 days, 20 mg x3 days thereafter omeprazole 20 mg capsule,delayed release(DR/EC) 20 mg PO DAILY Qty: 14 0RF diclofenac sodium 1 % gel 4 g topical QID Qty: 100 2RF Rx Instructions: Apply to right knee 4 times a day as needed pain hydrocodone-acetaminophen 5-325 mg tablet 1 tab PO Q6H PRN (Reason: pain) Qty: 14 0RF No Action metoprolol succinate 25 mg tablet extended release 24 hr 25 mg PO DAILY Qty: 30 0RF Patient Comments: Pt reports taking every other day, at best. Also stated only takes 2 pills, since it RX'd. furosemide 20 mg tablet 10 mg PO QAM Qty: 45 1RF furosemide [Lasix] 40 mg tablet 40 mg PO QAM Qty: 30 0RF Referrals: [facility] [Provider Group] Cris Reyna MD [Primary Care Provider] - Stand Alone Forms: Patient Portal/API <Bg Miramontes MD - Last Filed: 10/10/22 21:39> Cosign ED Attending Cosignature Attestation: I was immediately available in the department for consultation. This documentation has been reviewed and I agree with assessment and plan. Supervised by Bg Miramontes MD
--- NOTE | 2022-09-14 11:58 | DI.RAD.S_ITS ---
PROCEDURE: XR KNEE RT 3V INDICATIONS: pain/swelling TECHNIQUE: 3 views of the knee were acquired. COMPARISON: None. FINDINGS: Bones: No fractures or dislocations. No suspicious bony lesions. Soft tissues: No joint effusion. No suspicious soft tissue calcifications. Diffuse anterior swelling, superficial in superior and inferior to the patella. IMPRESSION: Soft tissue swelling. No acute bony abnormality. Dictated by: Flex Garcia M.D. on 09/14/2022 at 12:50 Approved by: Flex Garcia M.D. on 09/14/2022 at 12:51
[2022-09-14] MEDS: PANTOPRAZOLE DR 20 MG TABLET PO (12:33)
[2022-09-14] MEDS: HYDROCODONE/ACET 5/325 TABLET 1 TAB PO (12:33)
[2022-09-14] MEDS: KETOROLAC 30 MG/ML VIAL 15 MG IM (12:33)
[2022-09-14 12:56] LABS: Add Manual Diff / Slide Review NO; Basophils Absolute Auto 0 /uL (0-100); Basophils Percent Auto 0.2 % (0-2); Eosinophils Absolute Auto 200 /uL (0-450); Eosinophils Percent Auto 2.3 % (2-4); Hematocrit 35.9 % (41-53); Hemoglobin 12.3 g/dL (13.5-17.5); Lymphocytes Absolute Auto 1000 /uL (1100-4500); Mean Corpuscular HGB Conc 34.3 % (30-36); Mean Corpuscular Hemoglobin 34.6 PG (26-34); Mean Corpuscular Volume 100.7 fL (80-100); Monocytes Absolute Auto 1100 /uL (0-900); Monocytes Percent Auto 15.1 % (3-14); Neutrophils Absolute Auto 4800 /uL (1500-7000); Neutrophils Percent Auto 68.4 % (50-75); Platelet Count 191 X10^3/uL (150-400); Red Blood Cell Count 3.57 X10^6/uL (4.5-5.9); Red Cell Distribution Width 13.5 % (11.6-14.8); White Blood Cell Count 7.1 X10^3/uL (4.5-11.0)
[2022-09-14 13:11] LABS: BUN Creatinine Ratio 12.5 (6-22); Blood Urea Nitrogen 11 mg/dL (9-20); C-Reactive Protein Quant 1.9 mg/dL (<1.0); Calcium 9.6 mg/dL (8.4-10.2); Carbon Dioxide 25 mmol/L (22-32); Chloride 104 mmol/L (98-107); Estimated Glomerular Filt Rate > 60 mL/min (>60); Ethanol (ETOH) < 10 mg/dL; Glucose 104 mg/dL (80-110); HEMOLYSIS 15 (0-50); Potassium 4.9 mmol/L (3.4-5.1); Sodium 137 mmol/L (137-145); Uric Acid 7.6 mg/dL (3.5-8.5)
[2022-09-14 13:14] LABS: D Dimer 917 ng/ml (<500)
[2022-09-14 13:18] LABS: Erythrocyte Sedimentation Rate 24 MM/HR (0-15)
--- NOTE | 2022-09-14 13:27 | DI.CT.S_ITS ---
PROCEDURE: CT LE RT WO CON INDICATIONS: anterior knee pain/swelling TECHNIQUE: Noncontrast 1-1.5 mm axial sections acquired from the mid-patella to the proximal tibia, with coronal and sagittal reformats. COMPARISON: [facility], CR, XR KNEE RT 3V, 09/14/2022, 11:57. FINDINGS: Image quality: Excellent. Bones: Mild cortical irregularity is seen at the inferior medial aspect of the patella possibly related to a small impaction injury if there has been direct trauma to the patella versus chronic enthesopathic changes. Small suprapatellar and infrapatellar enthesophytes are present. Osseous structures are otherwise intact. No tibial plateau fracture is seen. Mild tricompartmental joint space narrowing with subchondral sclerosis at the medial compartment. There is partial osseous fusion of the proximal tibiofibular articulation. Soft tissues: Nonspecific prepatellar subcutaneous soft tissue edema. Small joint effusion without fluid-fluid level. Small medial popliteal cyst. The articular cartilages, menisci, ligaments, and tendons are not well evaluated with standard CT. Arterial vascular calcifications are noted. The musculature surrounding the knee is age-appropriate in bulk. IMPRESSION: 1. Focal cortical irregularity at the plantar medial aspect of the patella could represent a small impaction injury if there has been direct trauma to the patella versus chronic changes related to the patellar tendon origin. Suprapatellar and infrapatellar enthesophytes are present. MRI could be performed to evaluate for acute osseous edema or soft tissue injury if indicated clinically. 2. Nonspecific prepatellar subcutaneous soft tissue edema. 3. Small joint effusion. Small medial popliteal cyst. Approved by: Jt Spencer M.D. on 09/14/2022 at 14:13
--- NOTE | 2022-09-14 14:29 | DI.MRI.S_ITS ---
PROCEDURE: MR KNEE RT WO/W CON INDICATIONS: osseus abnormality vs abscess TECHNIQUE: Noncontrast sagittal PD fast spin echo and T2 fast spin echo with fat saturation, sagittal 3-D FLASH with fat saturation; coronal T1 spin echo and PD fast spin echo with fat saturation, and axial T1 spin echo and PD fast spin echo with fat saturation through the knee. Post-contrast axial, coronal, and sagittal T1 spin echo with fat saturation through the knee. COMPARISON: [facility], CR, XR KNEE RT 3V, 09/14/2022, 11:57. [facility], CT, CT LE RT WO CON, 09/14/2022, 13:47. FINDINGS: Image quality: Excellent. Anterior Cruciate Ligament: Intact. Posterior Cruciate Ligament: Intact. Medial Collateral Ligament: Intact. Lateral Collateral Ligament: Intact. Medial Meniscus: Intact. Lateral Meniscus: Intermediate intrasubstance signal is seen in the body of the lateral meniscus without extension to an articular surface, most compatible with intrasubstance degeneration. Medial and Lateral Tendons: The semimembranosus tendon insertions and meniscocapsular junction appear intact. Visualized portions of the pes anserinus tendons appear normal. No abnormal bursal fluid. The long and short heads of the biceps femoris tendon appear intact. The popliteus tendon appears intact. No signs of posterolateral corner injury. Iliotibial band appears normal. Anterior Structures: Focal fluid signal intensity is seen within the medial proximal patellar tendon at its origin, comprising approximately 20% of the cross-sectional tendon area, suspicious for partial tearing. There is irregularity of the adjacent portion of the inferior pole of the patella that may represent a partial avulsion injury versus impaction injury. Infection is considered less likely. There is surrounding soft tissue edema and mild osseous edema. The distal quadriceps tendon demonstrates mild tendinosis. No patellar subluxation. Small amount of fluid is seen in the deep infrapatellar bursa. Bones: Focal osseous irregularity at the anterior inferior medial patella with mild surrounding osseous edema and central sclerosis. Mild focal edema at the superior lateral patella is likely related to acute or chronic tendon traction. Medial Femorotibial Cartilage: Mild partial-thickness cartilage thinning in the weight-bearing portion of the medial femorotibial compartment. Lateral Femorotibial Cartilage: Mild partial-thickness cartilage thinning in the weight-bearing portion. Patellofemoral Cartilage: Mild generalized cartilage thinning. No focal defect. Soft Tissues: A small amount of joint fluid is present. Small medial popliteal cyst. The musculature surrounding the knee is normal in bulk. Nonspecific subcutaneous soft tissue edema throughout the anterior knee. No enhancing soft tissue mass. IMPRESSION: 1. Partial intrasubstance tearing of the patellar tendon at the medial aspect of the origin involving approximately 20% of the cross-sectional area of the tendon. 2. Focal osseous irregularity at the anterior cortex of the inferior medial patella with central sclerosis and surrounding osseous edema, which is of uncertain etiology. Considerations include an osseous avulsion injury, impaction injury, traction cystic changes, erosion/gout, or less likely chronic infection. Surrounding osseous edema is seen in the infrapatellar fat pad and the overlying subcutaneous tissues. 3. Mild distal quadriceps tendinosis and mild traction cystic changes at the superior lateral patella. 4. Small deep infrapatellar bursal effusion or bursitis. 5. Intrasubstance degeneration in the body of the medial meniscus without a discrete tear. 6. Cruciate and collateral ligaments are intact. 7. Small joint effusion. Small medial popliteal cyst. Approved by: Jt Spencer M.D. on 09/14/2022 at 16:18
[2022-09-14 16:25] VITALS: BP 135/97; PULSE 80; RESP 18; O2SAT 98
== END 2022-09-14 16:54 | disposition home or self-care (01) ==
PROVIDERS: Emergency Provider Nurse Practitioner Critical Care Medicine; PCP Student in an Organized Health Care Education/Training Program
DX: M25.461 Effusion, right knee (principal); S86.811A Strain of other muscle(s) and tendon(s) at lower leg level, right leg, initial encounter; R60.0 Localized edema; M76.892 Other specified enthesopathies of left lower limb, excluding foot
CPT/HCPCS: 36415; 73562; 73700; 73723; 80048; 80320; 84550; 85025; 85379; 85651; 86140; 96372; 99283; 99284; J1885